=== PATIENT | female | born 1940 | race Caucasian/White ===

== ENCOUNTER 2023-02-17 08:09 | Outpatient (OUT) | payer MEDICARE, OTHER, SELFPAY ==
--- NOTE | 2023-02-17 08:06 | CA_ITS ---
Patient: JOI DUNCAN Exam Date: 02/17/2023 : 1940 Gender:F Ordering : [facility] Admission #: [id number] Family : Order #: [id number] CLICK HERE TO VIEW EXAM ECHOCARDIOGRAM REPORT PROCEDURE: CA ECHO DOPPLER COMPLETE INDICATIONS: Takotsubo cardiomyopathy COMPARISON: None. DESCRIPTION: COMPLETE ECHOCARDIOGRAM Real-time transthoracic echocardiography with 2D, M-mode, spectral and color flow Doppler performed. QUALITY: Technical quality was good. LEFT VENTRICLE: Normal chamber size. Thickened septal wall. LV EF: Global left ventricular systolic function is normal; visually estimated ejection fraction is 55 to 60%. No significant wall motion abnormalities. DIASTOLIC: Not adequately assessed due to heart rhythm. ATRIAL SEPTUM: Inadequately seen. LEFT ATRIUM: Severe dilatation. RIGHT ATRIUM: Mild dilatation. RIGHT VENTRICLE: Normal chamber size. Normal right ventricular systolic function. TRICUSPID VALVE: Normal mobility and thickness. No stenosis with mild regurgitation. Mild pulmonary hypertension. RVSP 41mmHg MITRAL VALVE: Normal mobility and thickness. No evidence of mitral valve stenosis. There is no mitral annular calcification. Moderate mitral regurgitation. AORTIC VALVE: Normal trileaflet appearance. No visible sclerosis. Normal leaflet mobility. No evidence of aortic valve stenosis. No aortic regurgitation. AORTIC ROOT: Normal diameter and appearance. PULMONIC VALVE: Normal thickness and mobility. No stenosis. Mild regurgitation. PERICARDIUM: No evidence of pericardial effusion. IVC: Collapses with inspirations. Normal size measuring 2.1cm. CONCLUSION: Global left ventricular systolic function is normal; visually estimated ejection fraction is 55 to 60%. Biatrial enlargement. The right ventricle is normal in size and systolic function. Mild tricuspid regurgitation. Mildly elevated right ventricular systolic pressure. Moderate mitral regurgitation. Mild pulmonic regurgitation. Adult Echocardiography Procedure Report Left Ventricle LVEDD (3.7 - 5.6 cm): 3.73 cm LVESD (2.2 - 4.0 cm): 2.69 cm LVIVS thickness (0.6 - 1.2 cm): 1.33 cm LVPW thickness (0.5 - 1.0 cm): 0.96 cm e': 0.12 m/s E - e': 7.04 LVOT Max Gradient: 2.21 mm[Hg] LVOT Area (cm2): 0.74 m/s Peak Velocity (LVOT): 0.74 m/s Mean Velocity (LVOT): 0.55 m/s LVOT Diameter 2.04 cm Left Ventricular Ejection Fraction: 54.87 % Left Atrium LA Volume Index (2D A2C): 61.64 ml/m2 Left Atrium Systolic Dimension: 4.68 cm Mitral Valve Mitral Valve E-Wave Peak Velocity: 0.88 m/s Right Ventricle RV Internal Diastolic Dimension: 2.74 cm Aorta AO Root Diam: 2.90 cm Ascending Ao Diam: 2.22 cm Aortic Valve AoV Area (Peak Will): 2.40 cm2, 2.40 cm2 AoV Area (VTI): 2.14 cm2, 2.14 cm2 Peak Velocity(Antegrade Flow): 1.02 m/s Peak Gradient(Antegrade Flow): 4.14 mm[Hg] Mean Velocity(Antegrade Flow): 0.69 m/s Mean Gradient(Antegrade Flow): 2.18 mm[Hg] Velocity Time Integral: 22.27 cm Tricuspid Valve Peak Velocity (Regurgitant Flow): 2.05 m/s, 3.07 m/s Pulmonic Valve Mean Gradient: 1.27 mm[Hg] Mean Velocity: 0.53 m/s Peak Velocity: 0.73 m/s, 0.66 m/s Peak Gradient: 2.15 mm[Hg], 1.72 mm[Hg] Right Atrium Right Atrium Systolic Pressure: 35.94 ml, 35.94 ml Dictated by: Goldie Vaughan M.D. on 02/24/2023 at 13:34 Approved by: Goldie Vaughan M.D. on 02/24/2023 at 13:37
== END 2023-02-17 08:10 ==
LOC: CARD 08:09
PROVIDERS: PCP Family Medicine; Visit Provider Nurse Practitioner Family
DX: I34.0 Nonrheumatic mitral (valve) insufficiency (principal)
CPT/HCPCS: 93306

== ENCOUNTER 2023-02-24 07:13 | Day surgery (SDC) | payer MEDICARE, OTHER, SELFPAY ==
[2023-02-24] MEDS: LACTATED RINGER'S SOLUTION 1,000 ML 50 ML IV (07:55)
--- NOTE | 2023-02-24 09:26 | OP_ITS ---
OPERATION DATE: ??02/24/2023 PREOPERATIVE DIAGNOSIS:? Hemoccult positive stool. POSTOPERATIVE DIAGNOSIS:? Lobulated ascending colon polyp 1.5 cm. PROCEDURE:? Colonoscopy to cecum with cold snare polypectomy x1 for ascending colon polyp. SURGEON:? Rashi Majano M.D. ANESTHESIA:? Monitored anesthesia care. ESTIMATED BLOOD LOSS:? Less than 1 mL. INDICATIONS AND CONSENT:? Patient is an 82-year-old female with positive fecal occult blood.? Last colonoscopy was over 30 years ago.? Indications, risks, benefits, alternatives of proceeding with colonoscopy were explained extensively to the patient, including the risks of bleeding, colon perforation or anesthetic complications.? All of her questions were answered.? Informed consent was obtained.? Patient was on Eliquis but has held it for the past two days. PROCEDURE:? Patient brought to the operating room, placed in the left lateral decubitus position.? Monitored anesthesia care was provided.? Rectal exam was performed which showed some narrowing of the anal canal.? No masses or blood.? The scope was inserted into the anal canal.? Under direct visualization was advanced.? With the aid of abdominal compression, it was advanced to the cecum where cecal markings were clearly identified.? There was noted to be a good prep.? Upon withdrawal of the scope, mucosal surfaces were carefully examined.? Within the ascending colon, just distal to the ileocecal valve, there was noted to be a sessile, lobulated, 1.5-2 cm polyp.? This was removed in a piecemeal fashion with cold snare with good hemostasis.? There were no other mass lesions or polyps.? There was moderate sigmoid diverticulosis without inflammatory changes or scarring.? The scope was retroflexed in the anal canal.? There was no significant hemorrhoidal disease.? Scope was then withdrawn.? Patient tolerated procedure well, was sent to recovery room in good condition. Follow up colonoscopy will likely be in six months to one year, but will depend on the pathology results.? CC:? Patient?s family physician JAQUI
[2023-02-24 09:27] VITALS: BP 104/73; PULSE 108; RESP 20; TEMP 36.6; O2SAT 93
[2023-02-24 09:42] VITALS: BP 128/83; PULSE 101; RESP 18; TEMP 36.1; O2SAT 96
[2023-02-24 09:57] VITALS: BP 169/105; PULSE 102; RESP 18; TEMP 36.6; O2SAT 95
--- NOTE | 2023-02-24 10:10 | PC.NURSE ---
0957 BLOOD PRESSURE IS 169/105. PATIENT DID NOT TAKE ANY BLOOD PRESSURE MEDICATIONS BEFORE PROCEDURE. PATIENT HAS A HISTORY OF A-FIB. PHYSICIAN'S ARE AWARE OF HER BLOOD PRESSURES IT WAS ELEVATED UPON ARRIVAL TO PROCEDURE. ADVISED PATIENT TO TAKE MEDICATIONS WHEN SHE GETS HOME BUT HOLD THE ELIQUIS UNTIL TOMORROW PER DR. JOHN
== END 2023-02-24 10:15 ==
PROVIDERS: PCP Family Medicine; Visit Provider Surgery
PROC: (CPT 45385; principal; 2023-02-24 08:50)
DX: D12.2 Benign neoplasm of ascending colon (principal); R19.5 Other fecal abnormalities; I48.91 Unspecified atrial fibrillation; I35.1 Nonrheumatic aortic (valve) insufficiency; I11.0 Hypertensive heart disease with heart failure; I50.9 Heart failure, unspecified; E03.9 Hypothyroidism, unspecified; M81.0 Age-related osteoporosis without current pathological fracture; Z79.899 Other long term (current) drug therapy; Z79.01 Long term (current) use of anticoagulants; Z87.891 Personal history of nicotine dependence
CPT/HCPCS: 45385; 36415; 88305; J2704

== ENCOUNTER 2023-03-30 14:51 | Outpatient (OUT) | payer MEDICARE, OTHER, SELFPAY ==
--- NOTE | 2023-03-30 14:59 | US_ITS ---
The [address] [address] Patient Name: JOI DUNCAN MRN: [id number] date: 1940 Sex: F Assigned Patient Location: US Current Patient Location: US Accession/Order Number: [id number] Exam Date: 03/30/2023 14:58 Report Date: 03/30/2023 16:57 At the request of: JACINTO KAUR Procedure: US pelvis EXAM: US pelvis HISTORY: Other Specified Noninflammatory Disorder Of Vagina N89.8 COMPARISON: None. TECHNIQUE: Multiple transabdominal images of the pelvis were obtained, supplemented with Doppler. Transvaginal images were not obtained. FINDINGS: The study is somewhat limited due to the patient's body habitus. The uterus is anteverted measuring 5.9 x 6.2 x 3.5 cm. No definite abnormality seen in the uterine oliveira. The endometrial echoes are slightly thickened measuring 11 mm, without a focal abnormality within. The right and left ovaries are not visualized, presumably related to atrophy. There is no evidence of an adnexal mass or fluid in the cul-de-sac. Towards the right groin there is a small cyst measuring 1.1 x 1.0 x 1.0 cm, of uncertain etiology and significance. US/US pelvis IMPRESSION: The uterus is anteverted and small. No definite abnormality is seen within the uterine wall. The endometrial thickness is borderline prominent. The ovaries are not visualized. Towards the right groin is a small cyst on the right, of questionable clinical significance. No free fluid is present. Comparison with a previous study may be helpful in determining the chronicity of these findings. Electronically authenticated by: OTF RENO Date: 03/30/2023 16:57
== END 2023-03-30 14:52 | disposition home or self-care (01) ==
LOC: US 14:51
PROVIDERS: PCP Family Medicine; Visit Provider Family Medicine
DX: N89.8 Other specified noninflammatory disorders of vagina (principal); N85.4 Malposition of uterus; N94.89 Other specified conditions associated with female genital organs and menstrual cycle
CPT/HCPCS: 76856

== ENCOUNTER 2023-04-09 15:20 | Outpatient (OUT) | payer MEDICARE, OTHER, SELFPAY ==
[2023-04-09 15:45] LABS: Bilirubin Urine NEGATIVE (NEGATIVE); Blood Urine LARGE (NEGATIVE); Clarity Urine CLEAR (CLEAR); Color Urine YELLOW (YELLOW); Glucose Urine UA NEGATIVE (NEGATIVE); Ketones Urine NEGATIVE (NEGATIVE); Leukocyte Esterase Urine SMALL (NEGATIVE); Nitrite Urine NEGATIVE (NEGATIVE); Protein Urine TRACE mg/dL (NEG/TRACE); Specific Gravity Urine >=1.030 (1.005-1.025); Urobilinogen Urine 0.2 EU/dL (0.2-1.0); pH Urine 5.5 (5.0-9.0)
[2023-04-09 15:57] LABS: RBC Urine 0-2 #/HPF (0-2)
[2023-04-09 15:58] LABS: Bacteria Urine TRACE #/HPF (NONE SEEN); Cast Seen? NONE SEEN #/LPF (NONE SEEN); Crystals Seen? None Seen #/HPF (None Seen); Mucus Urine NONE SEEN (NONE SEEN); Squamous Epithelial Cell Urine RARE #/LPF (NONE/RARE); Urine Culture Indicated ALREADY ORDERED
== END 2023-04-09 15:21 | disposition home or self-care (01) ==
LOC: LAB 15:21
PROVIDERS: PCP Family Medicine; Visit Provider Family Medicine
DX: N89.8 Other specified noninflammatory disorders of vagina (principal); R82.89 Other abnormal findings on cytological and histological examination of urine
CPT/HCPCS: 81001; 87086; 87150; 87186

== ENCOUNTER 2023-05-11 14:52 | Outpatient (OUT) | payer MEDICARE, OTHER, SELFPAY ==
--- NOTE | 2023-05-11 14:14 | US_ITS ---
The [address] [address] Patient Name: JOI DUNCAN MRN: [id number] date: 1940 Sex: F Assigned Patient Location: US Current Patient Location: US Accession/Order Number: [id number] Exam Date: 05/11/2023 14:15 Report Date: 05/11/2023 15:12 At the request of: ADRIANA ARMENTA Procedure: US pelvis w/ transvaginal TRANSABDOMINAL AND TRANSVAGINAL PELVIC ULTRASOUND HISTORY: Postmenopausal bleeding. COMPARISON: None. FINDINGS: TRANSABDOMINAL: The uterus measures 6.2 x 3.2 x 4.4 cm. There are no myometrial masses. The endometrium is thickened and measures 13 mm. TRANSVAGINAL: The ovaries are not visualized. There is no free fluid seen within the cul-de-sac. US/US pelvis w/ transvaginal IMPRESSION: Abnormally thickened endometrium. Consider sonohysterogram. Ovaries not visualized. Electronically authenticated by: ELOISA BRADLEY Date: 05/11/2023 15:12
== END 2023-05-11 14:53 | disposition home or self-care (01) ==
LOC: US 14:53
PROVIDERS: PCP Family Medicine; Visit Provider Obstetrics & Gynecology
DX: N95.0 Postmenopausal bleeding (principal)
CPT/HCPCS: 76830; 76856

== ENCOUNTER 2023-06-30 15:55 | Outpatient (OUT) | payer MEDICARE, OTHER, SELFPAY ==
[2023-06-30 16:14] LABS: Basophils Percent Auto 0.6 % (0.2-2.0); Eosinophils Absolute Auto 0.1 10^3/uL (0.0-0.7); Eosinophils Percent Auto 1.8 % (0.9-7.0); Hematocrit 37.1 % (36.0-48.0); Hemoglobin 11.4 g/dL (12.0-16.0); Immature Granulocytes Abs Auto 0.01 10^3/uL (0.00-0.03); Immature Granulocytes Pct Auto 0.2 % (0.0-0.5); Lymphocytes Absolute Auto 1.2 10^3/uL (1.2-3.8); Mean Corpuscular HGB Conc 30.7 g/dL (29.9-35.2); Mean Corpuscular Hemoglobin 30.9 pg (26.7-34.0); Mean Corpuscular Volume 100.5 fL (81.0-99.0); Mean Platelet Volume 10.4 fL (9.5-13.5); Monocytes Absolute Auto 0.4 10^3/uL (0.3-0.8); Monocytes Percent Auto 8.5 % (1.7-12.0); Neutrophils Absolute Auto 3.2 10^3/uL (1.4-6.5); Neutrophils Percent Auto 64.9 % (43.0-75.0); Platelet Count 157 10^3/uL (150-450); Red Blood Count 3.69 10^6/uL (4.20-5.40); Red Cell Distribution Width 13.5 % (11.0-15.0)
[2023-06-30 16:38] LABS: Estimated Average Glucose 91 mg/dL; Glycohemoglobin A1C 4.8 % (4.5-6.2)
[2023-06-30 16:51] LABS: Alanine Aminotransferase 23 U/L (14-59); Albumin Globulin Ratio 1.1; Albumin Level 3.5 g/dL (3.4-5.0); Alkaline Phosphatase 66 U/L (46-116); Anion Gap 9.5; Aspartate Amino Transferase 24 U/L (15-37); Bilirubin Total 0.5 mg/dL (0.2-1.0); Calcium 9.5 mg/dL (8.5-10.1); Carbon Dioxide 33.5 mmol/L (21.0-32.0); Chloride 106 mmol/L (98-107); Estimated GFR (African America 56 (>=60); Estimated GFR (Non-African Ame 46 (>=60); Free T3 2.31 pg/mL (2.18-3.98); Globulin 3.1 g/dL; Glucose 72 mg/dL (74-106); Sodium 145 mmol/L (136-145); Thyroid Stimulating Hormone 1.513 uIU/mL (0.358-3.740); Total Protein 6.6 g/dL (6.4-8.2)
== END 2023-06-30 15:56 | disposition home or self-care (01) ==
LOC: LAB 15:57
PROVIDERS: PCP Family Medicine; Visit Provider Family Medicine
DX: R73.09 Other abnormal glucose (principal); D64.9 Anemia, unspecified; I11.0 Hypertensive heart disease with heart failure
CPT/HCPCS: 36415; 80053; 83036; 83540; 83880; 84436; 84443; 84481; 84484; 85025

== ENCOUNTER 2023-07-12 07:53 | Outpatient (OUT) | payer MEDICARE, OTHER, SELFPAY ==
--- NOTE | 2023-07-12 09:49 | CA_ITS ---
Patient Name JOI DUNCAN MR# Age Sex Date Time [id number] F 07/12/2023 08:45 At the Request Of DR Kole Servin . ECHOCARDIOGRAM REPORT PROCEDURE: CA ECHO DOPPLER COMPLETE INDICATIONS: CHEST PAIN COMPARISON: None. DESCRIPTION: COMPLETE ECHOCARDIOGRAM Real-time transthoracic echocardiography with 2D, M-mode, spectral and color flow Doppler performed. QUALITY: Technical quality was good. LEFT VENTRICLE: Normal chamber size. Sigmoid septum. LV EF: Global left ventricular systolic function is mildly decreased. Visual estimation of left ventricular ejection fraction is 45-50%. Diffuse hypokinesis. DIASTOLIC: Not adequately assessed due to heart rhythm. ATRIAL SEPTUM: Inadequately seen. LEFT ATRIUM: Severe dilatation. RIGHT ATRIUM: Mild dilatation. RIGHT VENTRICLE: Normal chamber size. Normal right ventricular systolic function. TRICUSPID VALVE: Normal mobility and thickness. No stenosis with trivial regurgitation. No evidence of pulmonary hypertension. RVSP 33mmHg MITRAL VALVE: Normal mobility and thickness. No evidence of mitral valve stenosis. There is no mitral annular calcification. Mild to moderate mitral regurgitation. AORTIC VALVE: Normal trileaflet appearance. No visible sclerosis. Normal leaflet mobility. No evidence of aortic valve stenosis. No aortic regurgitation. AORTIC ROOT: Normal diameter and appearance. PULMONIC VALVE: Normal thickness and mobility. No stenosis. Trivial regurgitation. PERICARDIUM: No evidence of pericardial effusion. IVC: Collapses with inspirations. Normal size. CONCLUSION: 1. Global left ventricular systolic function is mildly reduced; visually estimated ejection fraction is 45 to 50% 2. Biatrial enlargement 3. The right ventricle is normal in size and systolic function 4. Mild to moderate mitral regurgitation Adult Echocardiography Procedure Report Left Ventricle LVEDD (3.7 - 5.6 cm): 3.90 cm LVESD (2.2 - 4.0 cm): 3.03 cm LVIVS thickness (0.6 - 1.2 cm): 1.60 cm LVPW thickness (0.5 - 1.0 cm): 1.10 cm e': 0.09 m/s E - e': 6.14 LVOT Max Gradient: 2.31 mm[Hg] LVOT Area (cm2): 0.76 m/s Peak Velocity (LVOT): 0.76 m/s Mean Velocity (LVOT): 0.54 m/s LVOT Diameter 1.99 cm Left Ventricular Ejection Fraction: 50.03 % Left Atrium LA Volume Index (2D A2C): 65.88 ml/m2 Left Atrium Systolic Dimension: 3.64 cm Mitral Valve Mitral Valve E-Wave Peak Velocity: 0.57 m/s Right Ventricle RV Internal Diastolic Dimension: 3.11 cm Aorta AO Root Diam: 3.28 cm Ascending Ao Diam: 2.43 cm Aortic Valve AoV Area (Peak Will): 2.72 cm2, 2.65 cm2 AoV Area (VTI): 2.52 cm2, 2.47 cm2 Peak Velocity(Antegrade Flow): 0.89 m/s, 0.84 m/s Peak Gradient(Antegrade Flow): 3.14 mm[Hg], 2.84 mm[Hg] Mean Velocity(Antegrade Flow): 0.66 m/s, 0.63 m/s Mean Gradient(Antegrade Flow): 1.96 mm[Hg], 1.79 mm[Hg] Velocity Time Integral: 18.18 cm, 17.52 cm Tricuspid Valve Peak Velocity (Regurgitant Flow): 1.87 m/s, 2.74 m/s Pulmonic Valve Peak Velocity: 0.58 m/s Peak Gradient: 1.40 mm[Hg], 1.28 mm[Hg] Right Atrium Right Atrium Systolic Pressure: 40.03 ml, 40.03 ml Dictated by: Goldie Vaughan M.D. on 07/14/2023 at 12:12 Approved by: Goldie Vaughan M.D. on 07/14/2023 at 12:15
== END 2023-07-12 07:54 | disposition home or self-care (01) ==
LOC: CARD 07:53
PROVIDERS: PCP Family Medicine; Visit Provider Family Medicine
DX: Z01.810 Encounter for preprocedural cardiovascular examination (principal); Z01.812 Encounter for preprocedural laboratory examination; R93.89 Abnormal findings on diagnostic imaging of other specified body structures; I48.91 Unspecified atrial fibrillation; Z79.01 Long term (current) use of anticoagulants; R06.02 Shortness of breath; R07.9 Chest pain, unspecified
CPT/HCPCS: 85610; 85730; 93005; 93306

== ENCOUNTER 2023-07-12 09:41 | Outpatient (OUT) | payer MEDICARE, OTHER, SELFPAY ==
--- NOTE | 2023-07-12 09:42 | ECG_ITS ---
The [facility] Test Date: 2023-07-12 Pat Name: JOI DUNCAN Department: Room: - Gender: Female [employer]: : 1940 Requested By: ADRIANA ARMENTA Order Number: [id number] Reading MD: JACINTO KAUR Measurements Intervals [place] Rate: 70 P: [place]: QRS: -3 QRSD: 94 T: 28 QT: 427 QTc: 461 Interpretive Statements ATRIAL FIBRILLATION ABNORMAL RHYTHM ECG No previous ECG available for comparison Electronically Signed On 07-15-2023 6:22:44 EST by JACINTO KAUR
[2023-07-12 11:38] LABS: INR 1.03; Partial Thromboplastin Time 30.8 sec (22.3-36.2); Prothrombin Time 10.9 sec (9.0-11.6)
== END 2023-07-12 09:42 | disposition home or self-care (01) ==
LOC: PST 09:41
PROVIDERS: PCP Family Medicine; Visit Provider Obstetrics & Gynecology
DX: Z01.812 Encounter for preprocedural laboratory examination (principal); Z01.810 Encounter for preprocedural cardiovascular examination; Z79.01 Long term (current) use of anticoagulants; I48.91 Unspecified atrial fibrillation; R93.89 Abnormal findings on diagnostic imaging of other specified body structures; N95.0 Postmenopausal bleeding
CPT/HCPCS: 80048; 85610; 85730; 93005

== ENCOUNTER 2023-07-23 06:43 | Day surgery (SDC) | payer MEDICARE, OTHER, SELFPAY ==
[2023-07-12 10:46] VITALS: BP 157/97; PULSE 74; RESP 18; TEMP 36.2; O2SAT 97; BMI 29.9
[2023-07-23 06:55] LABS: Basophils Percent Auto 0.5 % (0.2-2.0); Eosinophils Absolute Auto 0.1 10^3/uL (0.0-0.7); Hematocrit 39.4 % (36.0-48.0); Immature Granulocytes Abs Auto 0.01 10^3/uL (0.00-0.03); Immature Granulocytes Pct Auto 0.2 % (0.0-0.5); Lymphocytes Absolute Auto 1.7 10^3/uL (1.2-3.8); Lymphocytes Percent Auto 31.8 % (20.5-60.0); Mean Corpuscular HGB Conc 30.5 g/dL (29.9-35.2); Mean Corpuscular Hemoglobin 30.3 pg (26.7-34.0); Mean Corpuscular Volume 99.5 fL (81.0-99.0); Monocytes Absolute Auto 0.5 10^3/uL (0.3-0.8); Monocytes Percent Auto 9.5 % (1.7-12.0); Neutrophils Absolute Auto 3.1 10^3/uL (1.4-6.5); Platelet Count 157 10^3/uL (150-450); Red Blood Count 3.96 10^6/uL (4.20-5.40); Red Cell Distribution Width 13.3 % (11.0-15.0); White Blood Count 5.5 10^3/uL (4.0-11.0)
[2023-07-23 07:07] VITALS: BP 145/94; PULSE 71; RESP 16; TEMP 36; O2SAT 99; BMI 27.9
[2023-07-23] MEDS: LACTATED RINGER'S SOLUTION 1,000 ML 50 ML IV (07:16)
--- NOTE | 2023-07-23 09:10 | PM.ONB ---
Brief Operative Note Date of procedure: 07/23/23 Pre-op diagnosis: pmb, thickend endometrium Post-op diagnosis: same as pre-op Procedure: NAME OF PROCEDURE: [ D&c hysteroscopy with myosure for removal of uterine polyp and fibroid.] multiple uterine polyp and fibroids, no evidence of malignancy PROCEDURE: The patient was taken back to the Operating Room where she was prepped and draped in normal sterile fashion after being placed under general anesthesia without difficulty. She was also placed in the dorsal lithotomy position. A weighted speculum was placed in the patient?s vagina. The anterior lip of the cervix was identified and grasped with a single tooth tenaculum. The patient?s uterus was then sounded roughly to [? 8] cm. The patient was then gently dilated using Hegar dilators. The hysteroscope was passed through the patient?s cervix into the uterus. Both ostia were identified. fluffy appearing endometrium. No gross evidence of malignancy, no gross evidence of polyps or fibroids. The MyoSure was then placed through the scope into the uterus, endometrial sampling in all quadrants was then performed. The myosure was also used to remove uterine polyp and fibroid. the myosure apparatus was removed along with the hysteroscope from the patient's uterus. At that point, gentle curettage was performed until a gritty texture was noted. The endometrial curettings were sent out to pathology. The single tooth tenaculum was then removed from the patient's anterior lip of the cervix where excellent hemostasis was noted. All instruments were removed from the patient?s vagina. The patient tolerated the procedure well. Sponge, lap and needle counts were correct times two. The patient was taken to the Recovery Room in stable condition.Room in stable condition. Anesthesia: GETA Surgeon: Edy Murguia Estimated blood loss (mL): 5 Pathology: other (enodmetrial curretting, uterine polyp and fibroid) Condition: stable Disposition: PACU
[2023-07-23 09:18] VITALS: BP 104/57; PULSE 81; RESP 13; O2SAT 96
[2023-07-23 09:33] VITALS: BP 111/64; PULSE 82; RESP 20; O2SAT 95
[2023-07-23 10:01] VITALS: BP 125/72; PULSE 73; RESP 20; O2SAT 97
[2023-07-23 10:33] VITALS: BP 158/91; PULSE 72; RESP 20; O2SAT 97
== END 2023-07-23 10:55 | disposition home or self-care (01) ==
PROVIDERS: PCP Family Medicine; Visit Provider Obstetrics & Gynecology
PROC: (CPT 58558; principal; 2023-07-23 08:30)
DX: R93.89 Abnormal findings on diagnostic imaging of other specified body structures (principal); N95.0 Postmenopausal bleeding; Z79.01 Long term (current) use of anticoagulants; N85.8 Other specified noninflammatory disorders of uterus; Z79.899 Other long term (current) drug therapy; Z98.51 Tubal ligation status; E03.9 Hypothyroidism, unspecified; I48.0 Paroxysmal atrial fibrillation; I11.9 Hypertensive heart disease without heart failure; Z87.891 Personal history of nicotine dependence
CPT/HCPCS: 58558; 36415; 85025; 88305; J2704

== ENCOUNTER 2023-10-28 10:05 | Outpatient (OUT) | payer MEDICARE, OTHER, SELFPAY ==
--- OUTSIDE RECORDS SUMMARY | 2023-10-28 10:12 | XMS_ITS | CCD ---
Author Name Unknown Address [address] [place] [address] [id number] [place] [address] Organization [facility] Care Team Providers Care Facing Cutting Machine Operator Name Role Phone PETER LEE Referring Unavailable JACINTO SERVIN Primary Care Unavailable CHAPITO SHIPLEY Attending Unavailable CHAPITO SHIPLEY Admitting Unavailable MA Procedure Practitioner Unavailab JJ Rendon Surgeon Unavailable ELTAHAWY, EHAB A Admitting Unavailable ALIVIATASHELLY, EHAB A Attending Unavailable JACINTO SERVIN Referring Unavailable JACINTO SERVIN Primary Care Unavailable YOLANDAY ., DR CASEY Admitting Unavailable HOY ., DR CASEY Primary Care Unavailable HOY ., DR CASEY Consulting Unavailable HOY ., DR CASEY Attending Unavailable HOY ., DR CASEY Admitting Unavailable HOY ., DR CASEY Primary Care Unavailable HOY ., DR CASEY Consulting Unavailable HOY ., DR CASEY Attending Unavailable GREEN LANE, DR KELSI Aguirre Consulting Unavailable ZIEBJENIFFER, DR DUDLEY Lee Consulting Unavailable HOY ., DR CASEY Admitting Unavailable HOY ., DR CASEY Primary Care Unavailable HOY ., DR CASEY Attending Unavailable HOY ., DR CASEY Admitting Unavailable HOY ., DR CASEY Primary Care Unavailable HOY ., DR CASEY Consulting Unavailable YOLANDAY ., DR CASEY Attending Unavailable Jacinto Servin Primary Care Physician Rashi JOHN Attending Unavailable Jacinto Servin Referring Unavailable NILLRashi Attending Unavailable Jacinto Servin Referring Unavailable NILLRashi R Attending Unavailable NILLRashi R Attending Unavailable FLAQUITO BALLARD Attending Unavailable FLAQUITO BALLARD Attending Unavailable ROD AGUAYO Attending Unavailable Allergies Allergy Classification Reported Allergen(s) Allergy Type Date of Onset Reaction(s) Facility (3 sources) Sulfonamides (Antibiotic); Translations: [sulfa drugs] Drug allergy Unknown (qualifier value) General Surgery Anneliese (1 source) ALPRAZolam; Translations: [Xanax] Drug Allergy [facility] Repository (1 source) Sulfonamides (Antibiotic); Translations: [SULFA (SULFONAMIDE ANTIBIOTICS)] Propensity to adverse reactions to drug (disorder) 2 [facility] Repository Medications Current Medications Medication Drug Class(es) Dates Sig (Normalized) Sig (Original) apixaban 5 mg oral tablet (2 sources) Factor Xa Inhibitor Start: 01-22-2023 take 1 tablet by mouth twice daily carvedilol 12.5 mg oral tablet (2 sources) alpha-Adrenergic Elvin, beta-Adrenergic Elvin Start: 01-22-2023 take 1 tablet by mouth twice daily carvedilol 12.5 mg Tab 12.5 mg = 1 tab(s), Oral, BID, Refills(s) 0 Start Date: 01/22/23 Status: Ordered ferrous sulfate 325 mg oral tablet (2 sources) Start: 01-22-2023 take 1 tablet by mouth twice daily ferrous sulfate 325 mg Tab 325 mg = 1 tab(s), Oral, BID, Refills(s) 0 Start Date: 01/22/23 Status: Ordered furosemide 20 mg oral tablet (2 sources) Loop Diuretic Start: 01-22-2023 take 1 tablet by mouth once daily levothyroxine sodium 0.05 mg oral tablet (2 sources) l-Thyroxine Start: 01-22-2023 take 1 tablet by mouth once daily lisinopril 20 mg oral tablet (2 sources) Angiotensin Converting Enzyme Inhibitor Start: 01-22-2023 take 1 tablet by mouth once daily meclizine hydrochloride 25 mg oral tablet (2 sources) Antiemetic Start: 02-02-2023 take 1 tablet by mouth twice daily meclizine 25 mg Tab 25 mg = 1 tab(s), Oral, BID, Refills(s) 0 Start Date: 02/02/23 Status: Ordered Completed/Discontinued Medications Medication Drug Class(es) Dates Sig (Normalized) Sig (Original) alendronic acid 70 mg oral tablet (2 sources) Bisphosphonate Start: 01-22-2023 take 1 tablet by mouth every week potassium chloride 20 meq extended release oral tablet (2 sources) Start: 01-22-2023 take 1 tablet by mouth once daily potassium chloride 20 mEq ER Tab 20 mEq = 1 tab(s), Oral, Daily, Refills(s) 0 Start Date: 01/22/23 Status: Ordered Problems Active Problems Problem Classification Problem Date Documented Da te Episodic/Chronic Cardiac dysrhythmias (5 sources) Unspecified atrial fibrillation; Translations: [Atrial fibrillation] Onset: 01-23-2022 01-22-2023 Chronic Congestive heart failure; nonhypertensive (5 sources) Unspecified diastolic (congestive) heart failure; Translations: [Congestive heart failure] Onset: 01-23-2022 01-22-2023 Chronic Disorders of lipid metabolism (1 source) Hyperlipidemia, unspecified; Translations: [HYPERLIPIDEMIA UNSPECIFIED] Onset: 01-23-2022 Chronic Essential hypertension (4 sources) Hypertensive disorder; Translations: [Essential (primary) hypertension] Onset: 07-01-2022 01-22-2023 Chronic Heart valve disorders (2 sources) Aortic valve regurgitation 01-22-2023 Chronic Hypertension with complications and secondary hypertension (1 source) Hypertensive heart disease with heart failure; Translations: [HTN HEART DISEASE W/HEART FAIL] Onset: 01-23-2022 Chronic Menopausal disorders (1 source) Other primary ovarian failure; Translations: [OTHER PRIMARY OVARIAN FAILURE] Onset: 01-23-2022 Chronic Osteoporosis (3 sources) Age-related osteoporosis without current pathological fracture; Translations: [Osteoporosis] Onset: 01-23-2022 01-22-2023 Chronic Other and ill-defined heart disease (1 source) Cardiomegaly; Translations: [CARDIOMEGALY] Onset: 01-23-2022 Chronic Other and ill-defined heart disease (2 sources) Left atrial enlargement 01-22-2023 Chronic Other and ill-defined heart disease (2 sources) Left ventricular hypertrophy 01-22-2023 Chronic Other and ill-defined heart disease (2 sources) Takotsubo syndrome; 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] Onset: 05-28-2022 Chronic Other and unspecified benign neoplasm (1 source) Benign neoplasm of colon; Translations: [Benign neoplasm of colon, unspecified] Onset: 03-05-2023 Episodic Other and unspecified benign neoplasm (1 source) Adenomatous polyp of colon 03-05-2023 Episodic Other gastrointestinal disorders (1 source) Abnormal feces; Translations: [Other fecal abnormalities] Onset: 02-02-2023 Episodic Other gastrointestinal disorders (2 sources) Occult blood in stools 02-02-2023 Episodic Other nutritional; endocrine; and metabolic disorders (2 sources) Body mass index 30+ - obesity 02-02-2023 Chronic Emelia-; endo-; and myocarditis; cardiomyopathy (except that caused by tuberculosis or sexually transmitted disease) (2 sources) Cardiomyopathy 01-22-2023 Chronic Residual codes; unclassified (2 sources) Edema of lower extremity 01-22-2023 Episodic Thyroid disorders (3 sources) Hypothyroidism, unspecified; Translations: [Hypothyroidism] Onset: 01-23-2022 01-22-2023 Chronic Past or Other Problems Problem Classification Problem Date Documented Da te Episodic/Chronic Deficiency and other anemia (1 source) Anemia, unspecified; Translations: [ANEMIA UNSPECIFIED] Onset: 01-23-2022 Episodic Diabetes mellitus without complication (1 source) Other abnormal glucose; Translations: [OTHER ABNORMAL GLUCOSE] Onset: 01-23-2022 Episodic Other injuries and conditions due to external causes (1 source) History of falling; Translations: [HISTORY OF FALLING] Onset: 01-23-2022 Episodic Other screening for suspected conditions (not mental disorders or infectious disease) (4 sources) Encounter for screening mammogram for malignant neoplasm of breast; Translations: [ENC SCR MAMMO MALIG NEOPLASM BREAST] Onset: 01-20-2022 Episodic Results Test Name Value Interpretation Reference Range Facility Office Visiton 08-05-2023 Follow-up visit [id number] Nereida Agosto 1940 F Date Provider Department Center 08/05/2023 [id number] BALLARD [facility] Family History Problem Relation Age of Onset No Known Problems Mother No Known Problems Father Family Status - Relation Status Age at Mother Father Level of Service:81324 MA OFFICE/OUTPATIENT ESTABLISHED MOD MDM 30-39 MIN Normal [facility] Ambulatory Visit Summaryon 0 03-05-2023 Ambulatory Visit Summary NEREIDA AGOSTO :1940 Visit Date:03/05/2023 Ambulatory Visit Instructions Your Care Team Attending Physician - ALVARO AHMADI, Rashi Lee Primary Care Physician - Jacinto Servin MD This Is Your Medications List alendronate (alendronate 70 mg Tab) apixaban (Eliquis 5 mg oral tablet) carvedilol (carvedilol 12.5 mg Tab) ferrous sulfate (ferrous sulfate 325 mg Tab) furosemide (furosemide 20 mg Tab) levothyroxine (Synthroid 50 mcg Tab) lisinopril (lisinopril 20 mg Tab) meclizine (meclizine 25 mg Tab) potassium chloride (potassium chloride 20 mEq ER Tab) Procedures Performed Colonoscopy (02/24/2023), Closed fracture of hip, Tubal ligation. Medications What How Much When Instructions Unchanged alendronate (alendronate 70 mg Tab) 1 Tablets By Mouth Every week Unknown, 1 Refill(s) Unchanged apixaban (Eliquis 5 mg oral tablet) 1 Tablets By Mouth 2 times a day Unknown Unchanged carvedilol (carvedilol 12.5 mg Tab) 1 Tablets By Mouth 2 times a day Unchanged ferrous sulfate (ferrous sulfate 325 mg Tab) 1 Tablets By Mouth 2 times a day Unchanged furosemide (furosemide 20 mg Tab) 1 Tablets By Mouth Every day Unknown Unchanged levothyroxine (Synthroid 50 mcg Tab) 1 Tablets By Mouth Every day Unknown Unchanged lisinopril (lisinopril 20 mg Tab) 1 Tablets By Mouth Every day Unknown Unchanged meclizine (meclizine 25 mg Tab) 1 Tablets By Mouth 2 times a day Unchanged potassium chloride (potassium chloride 20 mEq ER Tab) 1 Tablets By Mouth Every day Allergies sulfa drugs (Unknown) Problems Ongoing - Any problem that you are currently receiving treatment for. A-fib Aortic valve regurgitation BMI 30.0-30.9,adult Cardiomyopathy Congestive heart failure HTN (hypertension) Hypothyroidism Left atrial enlargement Lower extremity edema LVH (left ventricular hypertrophy) Osteoporosis Positive fecal occult blood test Normal [facility] General Surgery Office/Clini c Noteon 03-05-2023 General Surgery Office/Clinic Note Chief Complaint colonoscopy follow up HPI Staff 9 day post operative follow up post colonoscopy with ascending colon polypectomy. History of Present Illness s/p colonoscopy due to positive fecal occult blood; 1.5 cm ascending colon polyp removed; pathology with tubulovillous adenoma with focus of high grade dysplasia; doing well, denies abd pain or blood in stools. Review of Systems ROS - Provider Constitutional: no fever, no sweats, no weight loss. Eyes: no glasses, no blurred vision, no visual loss. ENMT: no dentures, no hoarseness, no swallowing difficulties, no hearing loss, no ear infection(s), no nose bleeds. Cardiovascular: normal blood pressure, no chest pain, regular heartbeat, no heart murmur. Respiratory: no shortness of breath, no cough, no asthma, no wheezing. Gastrointestinal: no nausea, no vomiting, no diarrhea, no constipation, no blood in stool, no change in bowel habits, no abdominal pain, no hepatitis. Genitourinary: no kidney stones, no urine infection, no dysuria. Musculoskeletal: no pain, no weakness. Skin: no changing moles, no rash, no skin lumps. Neurologic: no seizures, no epilepsy, no headache. Psychiatric: no emotional or psychiatric problem. Heme/Lymph: no bleeding problems, no anemia, no blood clots, no transfusions. Allergy/Immunologic: no swollen lymph nodes/glands, no IV drug abuse. Other: Additional ROS info: Except as noted in the above Review of Systems and in the History of Present Illness, all other systems have been reviewed and are negative or noncontributory. Assessment/Plan 1. 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 Follow-up No qualifying data available Problem List/Past Medical History Ongoing A-fib Aortic valve regurgitation BMI 30.0-30.9,adult Cardiomyopathy Congestive heart failure HTN (hypertension) Hypothyroidism Left atrial enlargement Lower extremity edema LVH (left ventricular hypertrophy) Osteoporosis Positive fecal occult blood test Tubulovillous adenoma of colon Historical No qualifying data Procedure/Surgical History Colonoscopy (02/24/2023), Closed fracture of hip, Tubal ligation. Medications alendronate 70 mg Tab, 70 mg= 1 tab(s), Oral, qWeek carvedilol 12.5 mg Tab, 12.5 mg= 1 tab(s), Oral, BID Eliquis 5 mg oral tablet, 5 mg= 1 tab(s), Oral, BID ferrous sulfate 325 mg Tab, 325 mg= 1 tab(s), Oral, BID furosemide 20 mg Tab, 20 mg= 1 tab(s), Oral, Daily lisinopril 20 mg Tab, 20 mg= 1 tab(s), Oral, Daily meclizine 25 mg Tab, 25 mg= 1 tab(s), Oral, BID potassium chloride 20 mEq ER Tab, 20 mEq= 1 tab(s), Oral, Daily Synthroid 50 mcg Tab, 50 mcg= 1 tab(s), Oral, Daily Allergies sulfa drugs (Unknown) Social History Alcohol - Denies Alcohol Use, 02/02/2023 Substance Abuse - Denies Substance Abuse, 02/02/2023 Tobacco Former smoker, quit more than 30 days ago Tobacco Use:. Never Smokeless Tobacco Use:. Cigarettes, 2 per day. Started age 23.0 Years. Stopped age 42 Years., 02/02/2023 Family History Asthma: Mother. Renal cell carcinoma: Brother. Immunizations Vaccine Date Status influenza virus vaccine, inactivated 07/21/2022 Recorded SARS-CoV-2 (COVID-19) mRNA-1273 vaccine 08/28/2021 Recorded SARS-CoV-2 (COVID-19) mRNA-1273 vaccine 11/14/2020 Recorded SARS-CoV-2 (COVID-19) mRNA-1273 vaccine 10/18/2020 Recorded Normal [facility] Comment on above: Result Comment: Elec tronically Signed By: ALVARO AHMADI, Rashi Weaver\Date and Time Signed: 03/05/23 15:50 EDT Reminderson 03-05-2023 Reminders - From: Alisha Maldonado LPN To: N - Clinical; Sent: 03/05/2023 15:36:30 EDT Show up: 01/25/2024 07:00:00 EDT Subject: colonoscopy recall Due Date/Time: 02/25/2024 07:00:00 EDT Reminder/Recall Patient due for surveillance colonoscopy 02/25/2024. Normal [facility] Pathology Noteon 03-01-2023 Pathology Note [id number] #1.00CD:127 Normal [facility] Outside Colonoscopyon 2022 Outside Colonoscopy [id number]# 1.00CD:127 Normal [facility] Formson 02-22-2023 Forms [id number] #1.00CD:127 Normal [facility] Office Visiton 02-19-2023 Follow-up visit [id number] Nereida Agosto 1940 F Date Provider Department Center 02/19/2023 [id number] BALLARD CARD [facility] Family History Problem Relation Age of Onset No Known Problems Mother No Known Problems Father Family Status - Relation Status Age at Mother Father Level of Service:23324 MA OFFICE/OUTPATIENT ESTABLISHED MOD MDM 30-39 MIN Reason for Visit and Comments: Follow-up [884275] - Pt is here for sx clearance scheduled for echo 02/17 [facility] Consent for Procedure/Surger yon 02-05-2023 Consent for Procedure/Surgery [id number] #1.00CD:127 [facility] Facesheeton 02-03-2023 Facesheet [id number] #1.00CD:127 [facility] Ambulatory Visit Summaryon 0 02-02-2023 Ambulatory Visit Summary NEREIDA AGOSTO :1940 Visit Date:02/02/2023 Ambulatory Visit Instructions Your Diagnosis Positive fecal occult blood test Your Care Team Attending Physician - Rashi JOHN MD Primary Care Physician - Jacinto Servin MD Referring Physician - Jacinto Servin MD This Is Your Medications List Contact prescribing physician if questions or concerns alendronate (alendronate 70 mg Tab) apixaban (Eliquis 5 mg oral tablet) carvedilol (carvedilol 12.5 mg Tab) ferrous sulfate (ferrous sulfate 325 mg Tab) furosemide (furosemide 20 mg Tab) levothyroxine (Synthroid 50 mcg Tab) lisinopril (lisinopril 20 mg Tab) meclizine (meclizine 25 mg Tab) potassium chloride (potassium chloride 20 mEq ER Tab) Procedures Performed Closed fracture of hip, Tubal ligation. Discharge Vitals Heart Rate (Peripheral) 74 Respiratory Rate 16 Blood Pressure 126/76 Height 147.3 cm Height 58 in Weight 65.7 kg Weight 144.54 lb BMI 30.28 Medications What How Much When Instructions Unchanged alendronate (alendronate 70 mg Tab) 1 Tablets By Mouth Every week Unknown, 1 Refill(s) Contact prescribing physician if questions or concerns Unchanged apixaban (Eliquis 5 mg oral tablet) 1 Tablets By Mouth 2 times a day Unknown Contact prescribing physician if questions or concerns Unchanged carvedilol (carvedilol 12.5 mg Tab) 1 Tablets By Mouth 2 times a day Contact prescribing physician if questions or concerns Unchanged ferrous sulfate (ferrous sulfate 325 mg Tab) 1 Tablets By Mouth 2 times a day Contact prescribing physician if questions or concerns Unchanged furosemide (furosemide 20 mg Tab) 1 Tablets By Mouth Every day Unknown Contact prescribing physician if questions or concerns Unchanged levothyroxine (Synthroid 50 mcg Tab) 1 Tablets By Mouth Every day Unknown Contact prescribing physician if questions or concerns Unchanged lisinopril (lisinopril 20 mg Tab) 1 Tablets By Mouth Every day Unknown Contact prescribing physician if questions or concerns Unchanged meclizine (meclizine 25 mg Tab) 1 Tablets By Mouth 2 times a day Contact prescribing physician if questions or concerns Unchanged potassium chloride (potassium chloride 20 mEq ER Tab) 1 Tablets By Mouth Every day Contact prescribing physician if questions or concerns Allergies sulfa drugs (Unknown) Problems Ongoing - Any problem that you are currently receiving treatment for. A-fib Aortic valve regurgitation BMI 30.0-30.9,adult Cardiomyopathy Congestive heart failure HTN (hypertension) Hypothyroidism Left atrial enlargement Lower extremity edema LVH (left ventricular hypertrophy) Osteoporosis Positive fecal occult blood test Normal [facility] Physician Referralon 023 Physician Referral [id number] #1.00CD:127 Normal [facility] OCC BLD IMMUNO SCREENon 01-04 OCCULT BLOOD Positive Abnormal NEGATIVE [facility] Comment on above: Performed By: #### O BSCRN #### [facility] [address] [address] [address] Dinah Rodriges CBC AUTO DIFFon 01-18-2023 BASO # 0.0 103/ul Normal 0.0-0.1 [facility] Comment on above: Performed By: #### C BC #### [facility] [address] [address] [address] Dinah Rodriges Basophils/100 WBC (Bld) 0.6 % Normal 0.2-2.0 [facility] Comment on above: Performed By: #### C BC #### [facility] [address] [place] [address] Dr. Dinah Rodriges EO # 0.1 103/ul Normal 0.0-0.7 [facility] Comment on above: Performed By: #### C BC #### [facility] [address] [place] [address] Dr. Dinah Rodriges Eosinophils/100 WBC (Bld) 1.8 % Normal 0.9-7.0 [facility] Comment on above: Performed By: #### C BC #### [facility] [address] [place] [address] Dr. Dinah Rodriges Erythrocyte distribution width (RBC) [Ratio] 12.7 % Normal 11.0-15.0 [facility] Comment on above: Performed By: #### C BC #### [facility] [address] [place] [address] Dr. Dinah Rodriges Hematocrit (Bld) [Volume fraction] 39.7 % Normal 36.0-48.0 [facility] Comment on above: Performed By: #### C BC #### [facility] [address] [place] [address] Dr. Dinah Rodriges Hemoglobin (Bld) [Mass/Vol] 12.6 g/dL Normal 12.0-16.0 [facility] Comment on above: Performed By: #### C BC #### [facility] [address] [place] [address] Dr. Dinah Rodriges IG # 0.01 10e3/ul Normal 0.00-0.03 [facility] Comment on above: Performed By: #### C BC #### [facility] [address] [place] [address] Dr. Dinah Rodriges IG % 0.2 % Normal 0.0-0.5 [facility] Comment on above: Performed By: #### C BC #### [facility] [address] [place] [address] Dr. Dinah Rodriges LYMPH # 1.5 103/ul Normal 1.2-3.8 [facility] Comment on above: Performed By: #### C BC #### [facility] [address] [place] [address] Dr. Dinah Rodriges Lymphocytes/100 WBC (Bld) 28.7 % Normal 20.5-60.0 [facility] Comment on above: Performed By: #### C BC #### [facility] [address] [place] [address] Dr. Dinah Rodriges MANUAL DIFF REQ NO Normal [facility] Comment on above: Performed By: #### C BC #### [facility] [address] [place] [address] Dr. Dinah Rodriges MCH (RBC) [Entitic mass] 30.7 pg Normal 26.7-34.0 [facility] Comment on above: Performed By: #### C BC #### [facility] [address] [place] [address] Dr. Dinah Rodriges MCHC (RBC) [Mass/Vol] 31.7 g/dL Normal 29.9-35.2 [facility] Comment on above: Performed By: #### C BC #### [facility] [address] [place] [address] Dr. Dinah Rodriges MCV (RBC) [Entitic vol] 96.8 fL Normal 81.0-99.0 [facility] Comment on above: Performed By: #### C BC #### [facility] [address] [place] [address] Dr. Dinah Rodriges MONO # 0.4 103/ul Normal 0.3-0.8 [facility] Comment on above: Performed By: #### C BC #### [facility] [address] [place] [address] Dr. Dinah Rodriges Monocytes/100 WBC (Bld) 7.3 % Normal 1.7-12.0 [facility] Comment on above: Performed By: #### C BC #### [facility] [address] [place] [address] Dr. Dinah Rodriges NEUT # 3.1 103/ul Normal 1.4-6.5 [facility] Comment on above: Performed By: #### C BC #### [facility] [address] [place] [address] Dr. Dinah Rodriges Neutrophils/100 WBC (Bld) 61.4 % Normal 43.0-75.0 [facility] Comment on above: Performed By: #### C BC #### [facility] [address] [address] [address] Dinah Rodriges Platelet mean volume (Bld) [Entitic vol] 9.7 fL Normal 9.5-13.5 [facility] Comment on above: Performed By: #### C BC #### [facility] [address] [place] [address] Dr. Dinah Rodriges PLT 163 103/ul Normal 150-450 [facility] Comment on above: Performed By: #### C BC #### [facility] [address] [place] [address] Dr. Dinah Rodriges RBC 4.10 106/ul Critically low 4.20-5.40 [facility] Comment on above: Performed By: #### C BC #### [facility] [address] [place] [address] Dr. Dinah Rodriges WBC 5.1 103/ul Normal 4.0-11.0 [facility] Comment on above: Performed By: #### C BC #### [facility] [address] [place] [address] Dr. Dinah Rodriges FREE T3on 01-18-2023 FREE T3 2.11 pg/mlL Critically low 2.18-3.98 [facility] Comment on above: Performed By: #### C MP, TSH, T4, LIPID, FT3 #### [facility] [address] [place] [address] Dr. Dinah Rodriges GLYCOHEMOGLOBIN A1Con 2022 ADA RECOMMENDATION SEE BELOW Normal [facility] Comment on above: Result Comment: ADA RECOMMENDED LIMIT 4.0 - 6.0 ADA THERAPEUTIC TARGET < 7.0 ACTION SUGGESTED > 7.0 Performed By: #### A 1C ####[facility] [address] [place], [place] [address]VmDr. Dinah Rodriges Glucose [Mass/Vol] 105 mg/dL Normal [facility] Comment on above: Performed By: #### A 1C ####[facility] [address] [place], [place] [address]YdDr. Dinah Rodriges HbA1c (Bld) [Mass fraction] 5.3 % Normal 4.5-6.2 [facility] Comment on above: Performed By: #### A 1C ####[facility] [id number] [id number]. Dinah Rodriges LIPID PROFILEon 01-18-2023 CHOL-HDL RATIO NORM SEE BELOW Normal [facility] Comment on above: Result Comment: 3.3 - 4.4 LOW RISK 4.4 - 7.1 AVERAGE RISK 7.1 - 11.0 MODERATE RISK >11.0 HIGH RISK Performed By: #### C MP, TSH, T4, LIPID, FT3 #### [facility] [address] [address] [address] Dinah Rodriges Cholesterol [Mass/Vol] 168 mg/dL Normal <=200 [facility] Comment on above: Performed By: #### C MP, TSH, T4, LIPID, FT3 #### [facility] [address] [address] [address] Dinah Rodriges Cholesterol in HDL [Mass/Vol] 61 mg/dL Critically high 40-60 [facility] Comment on above: Performed By: #### C MP, TSH, T4, LIPID, FT3 #### [facility] [address] [address] [address] Dinah Rodriges Cholesterol in LDL [Mass/Vol] 94.0 mg/dL Normal [facility] Comment on above: Performed By: #### C MP, TSH, T4, LIPID, FT3 #### [facility] [address] [address] [address] Dinah Rodriges Cholesterol.total/Ch olesterol in HDL [Mass ratio] 2.8 {ratio} Normal [facility] Comment on above: Performed By: #### C MP, TSH, T4, LIPID, FT3 #### [facility] [address] [address] [address] Dinah Rodriges HDL NORMAL > or = 60 mg/dl - LOW CARDIOVASCULAR RISK <40 mg/dl - HIGH CARDIOVASCULAR RISK Normal [facility] Comment on above: Performed By: #### C MP, TSH, T4, LIPID, FT3 #### [facility] [address] [address] [address] Dinah Rodriges LDL CALC NORMAL SEE BELOW Normal [facility] Comment on above: Result Comment: <100 mg/dl OPTIMAL 100 - 129 mg/dl NEAR OR ABOVE OPTIMAL 130 - 159 mg/dl BORDERLINE HIGH 160 - 189 mg/dl HIGH >190 mg/dl VERY HIGH Performed By: #### C MP, TSH, T4, LIPID, FT3 #### [facility] [address] [address] [address] Dinah Rodriges Triglyceride [Mass/Vol] 65 mg/dL Normal <=150 [facility] Comment on above: Performed By: #### C MP, TSH, T4, LIPID, FT3 #### [facility] [address] [place] [address] Dr. Dinah Rodriges VLDL CALC 13.0 mg/dL Normal [facility] Comment on above: Performed By: #### C MP, TSH, T4, LIPID, FT3 #### [facility] [address] [place] [address] Dr. Dinah Rodriges PROF 14(COMP METB)on 023 Albumin [Mass/Vol] 3.4 g/dL Normal 3.4-5.0 [facility] Comment on above: Performed By: #### C MP, TSH, T4, LIPID, FT3 #### [facility] [address] [address] [address] Dinah Rodriges Albumin/Globulin [Mass ratio] 1.0 {ratio} Normal [facility] Comment on above: Performed By: #### C MP, TSH, T4, LIPID, FT3 #### [facility] [address] [address] [address] Dinah Rodriges ALP [Catalytic activity/Vol] 59 U/L Normal 46-116 [facility] Comment on above: Performed By: #### C MP, TSH, T4, LIPID, FT3 #### [facility] [address] [place] [address] Dr. Dinah Rodriges ALT [Catalytic activity/Vol] 13 U/L Critically low 14-59 [facility] Comment on above: Performed By: #### C MP, TSH, T4, LIPID, FT3 #### [facility] [address] [place] [address] Dr. Dinah Rodriges Anion gap [Moles/Vol] 10.7 mmol/L Normal [facility] Comment on above: Performed By: #### C MP, TSH, T4, LIPID, FT3 #### [facility] [address] [place] [address] Dr. Dinah Rodriges AST [Catalytic activity/Vol] 14 U/L Critically low 15-37 [facility] Comment on above: Performed By: #### C MP, TSH, T4, LIPID, FT3 #### [facility] [address] [place] [address] Dr. Dinah Rodriges Bilirubin [Mass/Vol] 0.3 mg/dL Normal 0.2-1.0 [facility] Comment on above: Performed By: #### C MP, TSH, T4, LIPID, FT3 #### [facility] [address] [place] [address] Dr. Dinah Rodriges Calcium [Mass/Vol] 9.4 mg/dL Normal 8.5-10.1 [facility] Comment on above: Performed By: #### C MP, TSH, T4, LIPID, FT3 #### [facility] [address] [place] [address] Dr. Dinah Rodriges Chloride [Moles/Vol] 106 mmol/L Normal 98-107 [facility] Comment on above: Performed By: #### C MP, TSH, T4, LIPID, FT3 #### [facility] [address] [place] [address] Dr. Dinah Rodriges CO2 [Moles/Vol] 31.9 mmol/L Normal 21.0-32.0 [facility] Comment on above: Performed By: #### C MP, TSH, T4, LIPID, FT3 #### [facility] [address] [address] [address] Dinah Rodriges Creatinine [Mass/Vol] 0.95 mg/dL Normal 0.55-1.02 [facility] Comment on above: Performed By: #### C MP, TSH, T4, LIPID, FT3 #### [facility] [address] [place] [address] Dr. Dinah Rodriges EGFR-AF BAHRAINI >60 Normal >=60 [facility] Comment on above: Performed By: #### C MP, TSH, T4, LIPID, FT3 #### [facility] [address] [place] [address] Dr. Dinah Rodriges EGFR-NON AF BAHRAINI 57 mL/min/1.73m2 Critically low >=60 [facility] Comment on above: Performed By: #### C MP, TSH, T4, LIPID, FT3 #### [facility] [address] [place] [address] Dr. Dinah Rodriges Globulin (S) [Mass/Vol] 3.4 g/dL Normal [facility] Comment on above: Performed By: #### C MP, TSH, T4, LIPID, FT3 #### [facility] [address] [place] [address] Dr. Dinah Rodriges Glucose [Mass/Vol] 88 mg/dL Normal 74-106 [facility] Comment on above: Performed By: #### C MP, TSH, T4, LIPID, FT3 #### [facility] [address] [place] [address] Dr. Dinah Rodriges Potassium [Moles/Vol] 4.6 mmol/L Normal 3.5-5.1 [facility] Comment on above: Performed By: #### C MP, TSH, T4, LIPID, FT3 #### [facility] [address] [place] [address] Dr. Dinah Rodriges Protein [Mass/Vol] 6.8 g/dL Normal 6.4-8.2 [facility] Comment on above: Performed By: #### C MP, TSH, T4, LIPID, FT3 #### [facility] [address] [place] [address] Dr. Dinah Rodriges Sodium [Moles/Vol] 144 mmol/L Normal 136-145 [facility] Comment on above: Performed By: #### C MP, TSH, T4, LIPID, FT3 #### [facility] [address] [place] [address] Dr. Dinah Rodriges Urea nitrogen [Mass/Vol] 18.0 mg/dL Normal 7.0-18.0 [facility] Comment on above: Performed By: #### C MP, TSH, T4, LIPID, FT3 #### [facility] [address] [place] [address] Dr. Dinah Rodriges Urea nitrogen/Creatinine [Mass ratio] 18.9 mg/mg Normal [facility] Comment on above: Performed By: #### C MP, TSH, T4, LIPID, FT3 #### [facility] [address] [place] [address] Dr. Dinah Rodriges T4on 01-18-2023 T4 [Mass/Vol] 9.30 ug/dL Normal 4.80-13.90 [facility] Comment on above: Performed By: #### C MP, TSH, T4, LIPID, FT3 #### [facility] [address] [place] [address] Dr. Dinah Rodriges TSHon 01-18-2023 TSH 0.872 uIU/mL Normal 0.358-3.740 [facility] Comment on above: Performed By: #### C MP, TSH, T4, LIPID, FT3 #### [facility] [address] [place] [address] Dr. Dinah Rodriges BNPon 01-20-2022 Natriuretic peptide B (Bld) [Mass/Vol] 464.0 pg/mL Normal <=1,800.0 [facility] Comment on above: Performed By: #### T SH, BNP, T7, LIPID, CMP ####[facility] [address] [address]Dr. Dinah Rodriges CBC AUTO DIFFon 05-17-2022 BASO # 0.0 103/ul Normal 0.0-0.1 [facility] Comment on above: Performed By: #### C BC #### [facility] [address] [place] [address] Dr. Dinah Rodriges Basophils/100 WBC (Bld) 0.4 % Normal 0.2-2.0 [facility] Comment on above: Performed By: #### C BC #### [facility] [address] [place] [address] Dr. Dinah Rodriges EO # 0.1 103/ul Normal 0.0-0.7 [facility] Comment on above: Performed By: #### C BC #### [facility] [address] [place] [address] Dr. Dinah Rodriges Eosinophils/100 WBC (Bld) 1.9 % Normal 0.9-7.0 [facility] Comment on above: Performed By: #### C BC #### [facility] [address] [place] [address] Dr. Dinah Rodriges Erythrocyte distribution width (RBC) [Ratio] 12.7 % Normal 11.0-15.0 [facility] Comment on above: Performed By: #### C BC #### [facility] [address] [place] [address] Dr. Dinah Rodriges Hematocrit (Bld) [Volume fraction] 35.0 % Critically low 36.0-48.0 [facility] Comment on above: Performed By: #### C BC #### [facility] [address] [place] [address] Dr. Dinah Rodriges Hemoglobin (Bld) [Mass/Vol] 11.5 g/dL Critically low 12.0-16.0 [facility] Comment on above: Performed By: #### C BC #### [facility] [address] [place] [address] Dr. Dinah Rodriges IG # 0.01 10e3/ul Normal 0.00-0.03 [facility] Comment on above: Performed By: #### C BC #### [facility] [address] [place] [address] Dr. Dinah Rodriges IG % 0.2 % Normal 0.0-0.5 [facility] Comment on above: Performed By: #### C BC #### [facility] [address] [place] [address] Dr. Dinah Rodriges LYMPH # 1.4 103/ul Normal 1.2-3.8 [facility] Comment on above: Performed By: #### C BC #### [facility] [address] [place] [address] Dr. Dinah Rodriges Lymphocytes/100 WBC (Bld) 26.9 % Normal 20.5-60.0 [facility] Comment on above: Performed By: #### C BC #### [facility] [address] [place] [address] Dr. Dinah Rodriges MANUAL DIFF REQ NO Normal [facility] Comment on above: Performed By: #### C BC #### [facility] [address] [place] [address] Dr. Dinah Rodriges MCH (RBC) [Entitic mass] 33.0 pg Normal 26.7-34.0 [facility] Comment on above: Performed By: #### C BC #### [facility] [address] [place] [address] Dr. Dinah Rodriges MCHC (RBC) [Mass/Vol] 32.9 g/dL Normal 29.9-35.2 [facility] Comment on above: Performed By: #### C BC #### [facility] [address] [place] [address] Dr. Dinah Rodriges MCV (RBC) [Entitic vol] 100.3 fL Critically high 81.0-99.0 [facility] Comment on above: Performed By: #### C BC #### [facility] [address] [place] [address] Dr. Dinah Rodriges MONO # 0.4 103/ul Normal 0.3-0.8 [facility] Comment on above: Performed By: #### C BC #### [facility] [address] [place] [address] Dr. Dinah Rodriges Monocytes/100 WBC (Bld) 7.6 % Normal 1.7-12.0 [facility] Comment on above: Performed By: #### C BC #### [facility] [address] [address] [address] Dinah Rodriges NEUT # 3.3 103/ul Normal 1.4-6.5 [facility] Comment on above: Performed By: #### C BC #### [facility] [address] [address] [address] Dinah Rodriges Neutrophils/100 WBC (Bld) 63.0 % Normal 43.0-75.0 [facility] Comment on above: Performed By: #### C BC #### [facility] [address] [address] [address] Dinah Rodriges Platelet mean volume (Bld) [Entitic vol] 10.0 fL Normal 9.5-13.5 [facility] Comment on above: Performed By: #### C BC #### [facility] [address] [address] [address] Dinah Rodriges PLT 165 103/ul Normal 150-450 [facility] Comment on above: Performed By: #### C BC #### [facility] [address] [address] [address] Dinah Rodriges RBC 3.49 106/ul Critically low 4.20-5.40 [facility] Comment on above: Performed By: #### C BC #### [facility] [address] [address] [address] Dinah Rodriges WBC 5.3 103/ul Normal 4.0-11.0 [facility] Comment on above: Performed By: #### C BC #### [facility] [address] [address] [address] Dinah Rodriges FREE THYROXINE INDEX T7on FTI 3.37 Normal 1.30-4.50 [facility] Comment on above: Performed By: #### T SH, BNP, T7, LIPID, CMP ####[facility] [address] [address]Dr. Dinah Rodriges T3U 34.0 % Normal 30.0-39.0 [facility] Comment on above: Performed By: #### T SH, BNP, T7, LIPID, CMP ####[facility] [address] [address]Dr. Dinah Rodriges T4 [Mass/Vol] 9.90 ug/dL Normal 4.80-13.90 [facility] Comment on above: Performed By: #### T SH, BNP, T7, LIPID, CMP ####[facility] [address] [address]Dr. Dinah Rodriges GLYCOHEMOGLOBIN A1Con 2021 ADA RECOMMENDATION SEE BELOW Normal [facility] Comment on above: Result Comment: ADA RECOMMENDED LIMIT 4.0 - 6.0 ADA THERAPEUTIC TARGET < 7.0 ACTION SUGGESTED > 7.0 Performed By: #### A 1C ####[facility] [address] [place], [place] [address]Dr. Dinah Rodriges Glucose [Mass/Vol] 103 mg/dL Normal [facility] Comment on above: Performed By: #### A 1C ####[facility] [address] [place], [place] [address]Dr. Dinah Rodriges HbA1c (Bld) [Mass fraction] 5.2 % Normal 4.5-6.2 [facility] Comment on above: Performed By: #### A 1C ####[facility] [address] [place], [place] [address]Dr. Dinah Rodriges IRONon 01-20-2022 Iron [Mass/Vol] 79.0 ug/dL Normal 50.0-170.0 [facility] Comment on above: Performed By: #### I KINZA ####[facility] [address] [address]Dr. Dinah Rodriges LIPID PROFILEon 01-20-2022 CHOL-HDL RATIO NORM SEE BELOW Normal [facility] Comment on above: Result Comment: 3.3 - 4.4 LOW RISK 4.4 - 7.1 AVERAGE RISK 7.1 - 11.0 MODERATE RISK >11.0 HIGH RISK Performed By: #### T SH, BNP, T7, LIPID, CMP ####[facility] [address] [place], [place] [address]Dr. Dinah Rodriges Cholesterol [Mass/Vol] 153 mg/dL Normal <=200 [facility] Comment on above: Performed By: #### T SH, BNP, T7, LIPID, CMP ####[facility] [address] [address]Dr. Dinah Rodriges Cholesterol in HDL [Mass/Vol] 54 mg/dL Normal 40-60 [facility] Comment on above: Performed By: #### T SH, BNP, T7, LIPID, CMP ####[facility] [address] [address]Dr. Dinah Rodriges Cholesterol in LDL [Mass/Vol] 78.8 mg/dL Normal [facility] Comment on above: Performed By: #### T SH, BNP, T7, LIPID, CMP ####[facility] [address] [address]Dr. Dinah Rodriges Cholesterol.total/Ch olesterol in HDL [Mass ratio] 2.8 {ratio} Normal [facility] Comment on above: Performed By: #### T SH, BNP, T7, LIPID, CMP ####[facility] [address] [address]Dr. Dinah Rodriges HDL NORMAL > or = 60 mg/dl - LOW CARDIOVASCULAR RISK <40 mg/dl - HIGH CARDIOVASCULAR RISK Normal [facility] Comment on above: Performed By: #### T SH, BNP, T7, LIPID, CMP ####[facility] [address] [address]Dr. Dinah Rodriges LDL CALC NORMAL SEE BELOW Normal [facility] Comment on above: Result Comment: <100 mg/dl OPTIMAL 100 - 129 mg/dl NEAR OR ABOVE OPTIMAL 130 - 159 mg/dl BORDERLINE HIGH 160 - 189 mg/dl HIGH >190 mg/dl VERY HIGH Performed By: #### T SH, BNP, T7, LIPID, CMP ####[facility] [address] [address]Dr. Dianh Rodriges Triglyceride [Mass/Vol] 101 mg/dL Normal <=150 [facility] Comment on above: Performed By: #### T SH, BNP, T7, LIPID, CMP ####[facility] [address] [place], [place] [address]Al. Dinah Rodriges VLDL CALC 20.2 mg/dL Normal [facility] Comment on above: Performed By: #### T SH, BNP, T7, LIPID, CMP ####[facility] [address] [place], [place] [address]Bc. Dinah Rodriges MG MAMM SCREEN 3D TENZIN CADon 01-20-2022 MG MAMM SCREEN 3D TENZIN CAD Patient: NEREIDA AGOSTO Exam Date: 01/20/2022 : 1940 Gender:F Ordering : DR JACINTO SERVIN . Admission #: [id number] Family : Order #: [id number] CLICK HERE TO VIEW EXAM RADIOLOGY REPORT PROCEDURE: MAMMOGRAM SCREENING 3D BILATERAL CAD COMPARISON: MG MAMM SCREEN TENZIN W CAD, 10/18/2019. MG MAMM SCREEN TENZIN W CAD, 10/21/2020. INDICATIONS: Screening mammography Calculator Name NCI Breast Cancer Risk Assessment Tool 5 Year Breast Cancer Risk Not Reported. Lifetime Breast Cancer Risk Not Reported. Personal Breast Cancer No Personal Ovarian Cancer No Treatments None Family Cancers None LOCATION: [facility] BREAST COMPOSITION: Scattered areas fibroglandular density. FINDINGS: DIAGNOSTIC CATEGORY 1--NEGATIVE. NO CHANGE FROM COMPARISON ASSESSMENT. Scattered benign-appearing calcifications are present. Scattered benign-appearing lymph nodes are present. RIGHT BREAST: No significant suspicious finding. LEFT BREAST: No significant suspicious finding. RECOMMENDATIONS: ROUTINE MAMMOGRAM AND CLINICAL EVALUATION IN 12 MONTHS. PLEASE NOTE: A NORMAL MAMMOGRAM DOES NOT EXCLUDE THE POSSIBILITY OF BREAST CANCER. A CLINICALLY SUSPICIOUS PALPABLE LUMP SHOULD BE BIOPSIED. Dictated by: Kelsi Monzon MD on 01/20/2022 at 11:16 Approved by: Kelsi Monzon MD on 01/20/2022 at 11:33 Normal [facility] PROF 14(COMP METB)on 022 Albumin [Mass/Vol] 3.3 g/dL Critically low 3.4-5.0 [facility] Comment on above: Performed By: #### T SH, BNP, T7, LIPID, CMP ####[facility] [address] [place], [place] [address]UkSimran Rodriges Albumin/Globulin [Mass ratio] 1.0 {ratio} Normal [facility] Comment on above: Performed By: #### T SH, BNP, T7, LIPID, CMP ####[facility] [address] [address]Dr. Dinah Rodriges ALP [Catalytic activity/Vol] 69 U/L Normal 46-116 [facility] Comment on above: Performed By: #### T SH, BNP, T7, LIPID, CMP ####[facility] [address] [address]Dr. Dinah Rodriges ALT [Catalytic activity/Vol] 6 U/L Critically low 14-59 [facility] Comment on above: Performed By: #### T SH, BNP, T7, LIPID, CMP ####[facility] [address] [place], [place] [address]Dr. Dinah Rodriges Anion gap [Moles/Vol] 8.7 mmol/L Normal [facility] Comment on above: Performed By: #### T SH, BNP, T7, LIPID, CMP ####[facility] [address] [place], [place] [address]Dr. Dinah Rodriges AST [Catalytic activity/Vol] 12 U/L Critically low 15-37 [facility] Comment on above: Performed By: #### T SH, BNP, T7, LIPID, CMP ####[facility] [address] [address]Dr. Dinah Rodriges Bilirubin [Mass/Vol] 0.3 mg/dL Normal 0.2-1.0 [facility] Comment on above: Performed By: #### T SH, BNP, T7, LIPID, CMP ####[facility] [address] [place], [place] [address]Dr. Dinah Rodriges Calcium [Mass/Vol] 9.3 mg/dL Normal 8.5-10.1 [facility] Comment on above: Performed By: #### T SH, BNP, T7, LIPID, CMP ####[facility] [address] [address]Dr. Dinah Rodriges Chloride [Moles/Vol] 104 mmol/L Normal 98-107 [facility] Comment on above: Performed By: #### T SH, BNP, T7, LIPID, CMP ####[facility] [address] [address]Dr. Dinah Rodriges CO2 [Moles/Vol] 33.2 mmol/L Critically high 21.0-32.0 [facility] Comment on above: Performed By: #### T SH, BNP, T7, LIPID, CMP ####[facility] [address] [address]Dr. Dinah Rodriges Creatinine [Mass/Vol] 1.11 mg/dL Critically high 0.55-1.02 [facility] Comment on above: Performed By: #### T SH, BNP, T7, LIPID, CMP ####[facility] [address] [place], [place] [address]Dr. Dinah Rodriges EGFR-AF BAHRAINI 57 mL/min/1.73m2 Critically low >=60 [facility] Comment on above: Performed By: #### T SH, BNP, T7, LIPID, CMP ####[facility] [address] [place], [place] [address]Dr. Dinah Rodriges EGFR-NON AF BAHRAINI 47 mL/min/1.73m2 Critically low >=60 [facility] Comment on above: Performed By: #### T SH, BNP, T7, LIPID, CMP ####[facility] [address] [place], [place] [address]Dr. Dinah Rodriges Globulin (S) [Mass/Vol] 3.4 g/dL Normal [facility] Comment on above: Performed By: #### T SH, BNP, T7, LIPID, CMP ####[facility] [address] [place], [place] [address]Dr. Dinah Rodriges Glucose [Mass/Vol] 84 mg/dL Normal 74-106 [facility] Comment on above: Performed By: #### T SH, BNP, T7, LIPID, CMP ####[facility] [address] [place], [place] [address]Dr. Dinah Rodriges Potassium [Moles/Vol] 4.9 mmol/L Normal 3.5-5.1 [facility] Comment on above: Performed By: #### T SH, BNP, T7, LIPID, CMP ####[facility] [address] [address]Dr. Dinah Rodriges Protein [Mass/Vol] 6.7 g/dL Normal 6.4-8.2 [facility] Comment on above: Performed By: #### T SH, BNP, T7, LIPID, CMP ####[facility] [address] [address]Dr. Dinah Rodriges Sodium [Moles/Vol] 141 mmol/L Normal 136-145 [facility] Comment on above: Performed By: #### T SH, BNP, T7, LIPID, CMP ####[facility] [address] [address]Dr. Dinah Rodriges Urea nitrogen [Mass/Vol] 18.0 mg/dL Normal 7.0-18.0 [facility] Comment on above: Performed By: #### T SH, BNP, T7, LIPID, CMP ####[facility] [address] [address]Dr. Dinah Rodriges Urea nitrogen/Creatinine [Mass ratio] 16.2 mg/mg Normal [facility] Comment on above: Performed By: #### T SH, BNP, T7, LIPID, CMP ####[facility] [address] [address]Dr. Dinah Rodriges TSHon 01-20-2022 TSH 1.061 uIU/mL Normal 0.358-3.740 [facility] Comment on above: Performed By: #### T SH, BNP, T7, LIPID, CMP ####[facility] [address] [address]Dr. Dinah Rodriges TSH RANGE SEE BELOW Normal [facility] Comment on above: Result Comment: <0.3 4 UIU/ml HYPERTHYROID 0.34-5.60 UIU/ml EUTHYROID >5.60 UIU/ml HYPOTHYROID Performed By: #### T SH, BNP, T7, LIPID, CMP ####[facility] [address] [place], [place] [address]Dr. Dinah Rodriges XR DEXA BONE DENSITYon 01-20 XR DEXA BONE DENSITY EXAMINATION: XR DEX A BONE DENSITY, 01/20/2022 10:40 AM EDT HISTORY: Primary ovarian failure COMPARISON: DEXA bone densitometry 03/22/2017 TECHNIQUE: Dual-energy X-ray absorptiometry (DEXA) bone density study performed for the axial skeleton. FINDINGS: SPINE ANALYSIS: Average bone mineral density is 1.052 g/cm2. T-score (standard deviation relative to young adult mean): -1.2 . -14.1% change since prior study. HIP ANALYSIS: Lowest bone mineral density is within the right femoral trochanter, 0.495 g/cm2. T-score (standard deviation relative to young adult mean): -3.1 . -26.1% change since prior study. IMPRESSION: [employer] Classification: Osteoporosis - High Fracture Risk Electronically authenticated by: DUDLEY RYDER Date: 2022-01-20 11:30 Normal [facility] Cardiovascular Lab Reporton 12-23-2018 Cardiovascular Lab Report [facility] Patient Name: [facility] Nereida Rubin MR #: [id number] Department of Physician: Martha Seymour MHailey Division of Service Date: 12/23/2018 Cardiology Birthdate: 1940 Adult Cardiovascular Room #: [address] [address] Cardiovascular Laboratory Report PROCEDURE: Transesophageal echocardiogram and cardioversion. INDICATION: Atrial fibrillation. FELLOW: Neto Doty MD PROCEDURE IN DETAIL: An informed consent was obtained from the patient after explaining the indication, risks and benefits, and alternatives. The patient understood and agreed and signed the consent form. The patient was brought to the label tacker and transesophageal echocardiogram was performed under conscious sedation. The patient obtained Versed and fentanyl during the procedure. The transesophageal echocardiogram did not show any thrombus in the left atrial appendage. Full JEANNA reported elsewhere. After the transesophageal echocardiogram, synchronized, biphasic cardioversion was performed using 360 joules of biphasic, synchronized energy. The patient's rhythm was successfully converted to sinus rhythm as evidenced by telemetry. No complications were noted throughout the procedure. IMPRESSIONS: Successful elective, electrical cardioversion of atrial fibrillation to sinus rhythm RECOMMENDATIONS: 1. A 12 lead EKG will be obtained to document sinus rhythm 2. The patient will be started on PO Amiodarone in an attempt to maintain sinus rhythm; routine labs, pulmonary function testing and eye examinations will be scheduled 3. Continue anti-coagulation as clinically indicated 4. The patient will follow up with me in the [facility] in 2-4 weeks Electronically Signed by: Goldie Waldrop M.D. 01/05/2019 08:36 A Goldie Waldrop M.D. I was present for the entire procedure. Date Dict: 12/23/2018/03:28 P/Neto Doty MD Date Trans: 12/23/2018 04:19 P/beth [id number] cc: Jacinto Servin M.D. [address], [facility] [place] [address] [place] [facility] Cardiovascular Lab Reporton 12-16-2018 Cardiovascular Lab Report [facility] Patient Name: [facility] Nereida Rubin MR #: [id number] Department of Physician: Martha Ken M.D. Division of Service Date: 12/15/2018 Cardiology Birthdate: 1940 Adult Cardiovascular Room #: 3CD [id number] [place] [address] Cardiovascular Laboratory Report CLINICAL PRESENTATION: The patient is a 78-year-old female with past medical history significant for hypertension. She was admitted to [facility] with worsening shortness of breath. She was diagnosed with acute congestive heart failure and atrial fibrillation with a rapid ventricular rate. She was evaluated by my colleague, Dr. Lee, [place] [facility]. EKG showed ST elevations in the anterolateral leads and she was transferred urgently to the [facility] due to possible acute myocardial infarction. FINAL IMPRESSION: 1. Mild coronary artery disease. 2. Left ventriculogram shows severe apical hypokinesis and hyperdynamic base consistent with Takotsubo cardiomyopathy, also known as stress cardiomyopathy. PLAN: 1. Optimal medical therapy for acute systolic congestive heart failure/takotsubo cardiomyopathy. 2. Medical therapy for atrial fibrillation as appropriate. 3. Right heart catheterization shows mildly increased filling pressures and borderline reduced cardiac index. PROCEDURES: Right heart catheterization, left heart catheterization, left ventriculogram, coronary angiogram, conscious sedation 40 minutes. INDICATIONS: Acute systolic congestive heart failure, possible ST-elevation myocardial infarction on EKG. PROCEDURE DESCRIPTION: The patient was brought urgently to the cardiac catheterization lab. Informed written consent was obtained. She was prepped and draped in usual sterile fashion over the bilateral groin. Time-out was performed. She was given Versed and fentanyl for sedation. A 1% lidocaine was infiltrated over the right femoral artery and by using ultrasound guidance and micropuncture access technique, a 6-Chinese sheath placed in the right common femoral artery and vein. All catheter exchanges were made over the J-tip guidewire. First, the right heart catheterization was performed. The Mark catheter was advanced under fluoroscopic and hemodynamic monitoring to the right atrium. Pressures were obtained in the right atrium, right ventricle, pulmonary artery, pulmonary capillary wedge position. Oxygen saturations drawn from the pulmonary artery and the femoral artery and then the Maria Teresa cardiac output and cardiac index were calculated. The Mark catheter was then removed. Next, the coronary angiogram was performed. The left main was engaged with a JL4 catheter. Right coronary artery was then engaged with a JR4 catheter. Coronary angiogram was performed in multiple orthogonal views using hand injection of contrast. Next, the left ventriculogram was performed. Angled pigtail catheter was manipulated beyond the aortic valve to the left ventricle. Left heart pressures were obtained. Left ventriculogram was performed. Pullback was performed. At this point, the procedure was completed. All catheters and wires removed from the body. The right femoral sheath was removed. An Angio-Seal closure device was used to obtain hemostasis. The right femoral venous sheath was removed and manual pressure was applied to obtain hemostasis. There were no apparent complications. TOTAL CONTRAST: 110 mL. TOTAL FLUOROSCOPY TIME: 7 minutes and 56 seconds, 0.6 Gy. TOTAL CONSCIOUS SEDATION TIME: 40 minutes. FINDINGS: Hemodynamics: 1. RA mean 12. 2. RV 31/12. 3. PA 37/22 (mean 27). 4. Pulmonary capillary wedge pressure mean 21. 5. AO 96/57 (MEP 73). 6. LV 99/LVEDP 21 mmHg. 7. Maria Teresa cardiac output 4.0 L/minute. 8. Cardiac index 2.3 L/minute per meter squared. 9. Oxygen saturations, PA sat 55% and AO sat 91%. LEFT VENTRICULOGRAM: Left ventriculogram shows severe hypokinesis of the apical anterolateral, apical, and apical inferior segments. The base of the left ventricle is hyperdynamic. These findings are consistent with Takotsubo cardiomyopathy. The overall EF is approximately 30%. There was 1+ MR. CORONARY ANGIOGRAM: Left main coronary artery: Patent. Left anterior descending coronary artery: The LAD is a large vessel and is patent. The distal LAD has a very small caliber and appears possibly consistent with vasospasm or just related to the changes seen with Takotsubo cardiomyopathy. Left circumflex coronary artery: Circumflex is patent and has 20% stenosis in its mid segment. Right coronary artery: The RCA is a large vessel and is dominant. The RCA has a 20% stenosis in its midsegment. The PDA and NAYELI are widely patent. Electronically Signed by: Jj Cano M.D. 12/16/2018 09:18 A Jj Cano M.D. Date Dict: 12/15/2018/12:51 P/Jj Cano M.D. Date Trans: 12/16/2018 06:03 Denis/beth [id number] cc: Jacinto Servin M.D. [place] [address] [facility] [place] [address] Peter Lee M.D. [facility] [address] Normal [facility] BASIC METABOLIC PANELon 12-05 Calcium [Mass/Vol] 9.3 mg/dL Normal 8.6-10.3 [facility] Comment on above: Order Comment: No: D o not add to previous draw Performed By: #### 4 6413, 56099, 51595, 10559, 99292 #### [facility] [address] [place] [address], [place] Chloride [Moles/Vol] 102 mmol/L Normal 98-107 [facility] Comment on above: Order Comment: No: D o not add to previous draw Performed By: #### 4 6413, 21451, 35358, 29380, 67093 #### [facility] [address] [place] [address], [place] CO2 [Moles/Vol] 27 mmol/L Normal 21-31 The [facility] Comment on above: Order Comment: No: D o not add to previous draw Performed By: #### 4 6413, 80398, 81563, 22271, 62882 #### [facility] [address] [place] [address], [place] Creatinine [Mass/Vol] 0.91 mg/dL Normal 0.60-1.20 [facility] Comment on above: Order Comment: No: D o not add to previous draw Performed By: #### 4 6413, 36610, 02945, 64545, 17202 #### [facility] [address] [place] [address], [place] GFR/1.73 sq M predicted among blacks MDRD (S/P/Bld) [Vol rate/Area] mL/min/{1.73_m2} Normal >60 [facility] Comment on above: Order Comment: No: D o not add to previous draw Result Comment: Calc ulation may not be valid for patients over 70 years Performed By: #### 4 6413, 16609, 23355, 53764, 80762 #### [facility] [address] [place] [address], [place] GFR/1.73 sq M predicted among non-blacks MDRD (S/P/Bld) [Vol rate/Area] mL/min/{1.73_m2} Normal >60 [facility] Comment on above: Order Comment: No: D o not add to previous draw Result Comment: Calc ulation may not be valid for patients over 70 years Performed By: #### 4 6413, 32478, 16407, 46264, 84208 #### [facility] [address] [place] [address], [place] Glucose [Mass/Vol] 130 mg/dL High 70-100 [facility] Comment on above: Order Comment: No: D o not add to previous draw Performed By: #### 4 6413, 06019, 80448, 12431, 36598 #### [facility] [address] [place] [address], [facility] Potassium [Moles/Vol] 3.5 mmol/L Normal 3.5-5.1 [facility] Comment on above: Order Comment: No: D o not add to previous draw Performed By: #### 4 6413, 30221, 54580, 38382, 87547 #### [facility] [address] [place] [address], [facility] Sodium [Moles/Vol] 140 mmol/L Normal 136-145 [facility] Comment on above: Order Comment: No: D o not add to previous draw Performed By: #### 4 6413, 42178, 35777, 91428, 85183 #### [facility] [address] [place] [address], [facility] Urea nitrogen [Mass/Vol] 19 mg/dL Normal 7-25 [facility] Comment on above: Order Comment: No: D o not add to previous draw Performed By: #### 4 6413, 75280, 34279, 31752, 04116 #### [facility] [address] [place] [address], [place] BNP (B-TYPE NATRIURETIC PEPT CORI)on 12-15-2018 Natriuretic peptide B (Bld) [Mass/Vol] 369 pg/mL High 0-100 [facility] Comment on above: Order Comment: No: D o not add to previous draw Result Comment: Give n the appropriate clinical setting a BNP result of >100 pg/mL indicates congestive heart failure. Performed By: #### 8 5123, 95437 #### [facility] [address] [facility]. [address] CBC COMPLETE BLOOD COUNTon 0 - Erythrocyte distribution width (RBC) [Ratio] 12.9 % Normal 11.5-15.0 [facility] Comment on above: Order Comment: No: D o not add to previous draw Performed By: #### 5 0608 #### [facility] [address] [place] [address], [facility] Hematocrit (Bld) [Volume fraction] 39.0 % Normal 36.0-45.0 [facility] Comment on above: Order Comment: No: D o not add to previous draw Performed By: #### 5 0608 #### [facility] [address] [facility] [address] Hemoglobin (Bld) [Mass/Vol] 12.6 g/dL Normal 12.0-15.0 [facility] Comment on above: Order Comment: No: D o not add to previous draw Performed By: #### 5 0608 #### [facility] [address] [facility] [place] [address], [facility] MCH (RBC) [Entitic mass] 31.6 pg Normal 27.0-33.0 [facility] Comment on above: Order Comment: No: D o not add to previous draw Performed By: #### 5 0608 #### [facility] [address] [facility] [place] [address], [facility] MCHC (RBC) [Mass/Vol] 32.3 g/dL Normal 32.0-35.0 [facility] Comment on above: Order Comment: No: D o not add to previous draw Performed By: #### 5 0608 #### [facility] [address] [place] [address], [facility] MCV (RBC) [Entitic vol] 97.7 fL Normal 82.0-98.0 [facility] Comment on above: Order Comment: No: D o not add to previous draw Performed By: #### 5 0608 #### [facility] [address] [place] [address], [facility] Nucleated RBC/100 WBC (Bld) [Ratio] 0 % Normal 0-0 [facility] Comment on above: Order Comment: No: D o not add to previous draw Performed By: #### 5 0608 #### [facility] [address] [place] [address], [place] PLAT CNT 252 10*3/uL Normal 150-400 [facility] Comment on above: Order Comment: No: D o not add to previous draw Performed By: #### 5 0608 #### [facility] [address] [place] [address], [facility] RBC (Bld) [#/Vol] 3.99 10*6/uL Normal 3.80-5.00 The [facility] Comment on above: Order Comment: No: D o not add to previous draw Performed By: #### 5 0608 #### [facility] [address] [facility] [place] [address], [facility] WBC (Bld) [#/Vol] 8.04 10*3/uL Normal 4.00-10.60 [facility] Comment on above: Order Comment: No: D o not add to previous draw Performed By: #### 5 0608 #### [facility] [address] [place] [address], [facility] HEMOGLOBIN A1Con 12-15-2018 HbA1c (Bld) [Mass fraction] 108 mg/dL Normal 70-126 [facility] Comment on above: Order Comment: No: D o not add to previous draw Performed By: #### 8 5123, 56477 #### [facility] [address] [place] [address], [facility] HbA1c (Bld) [Mass fraction] 5.4 % Normal 4.0-6.0 [facility] Comment on above: Order Comment: No: D o not add to previous draw Performed By: #### 8 5123, 32551 #### [facility] [address] [place] [address], [facility] LIPID PROFILEon 12-15-2018 Cholesterol [Mass/Vol] 138 mg/dL Normal 120-200 [facility] Comment on above: Order Comment: No: D o not add to previous draw Result Comment: CHOL ESTEROL REFERENCE RANGE: 20 YEARS AND OLDER CARDIOVASCULAR RISK Less than 200 mg/dl Low Risk 200 to 239 mg/dl Borderline Risk 240 mg/dl and greater High Risk Performed By: #### 4 6413, 85491, 57473, 29303, 93985 #### [facility] [address] [place] [address], [facility] Cholesterol in HDL [Mass/Vol] 36 mg/dL Normal 23-92 [facility] Comment on above: Order Comment: No: D o not add to previous draw Result Comment: Slig ht variation in normal range could be due to gender and/or age. HDL CHOLESTEROL REFERENCE RANGE: 20 years and older Cardiovascular Risk > or =60 mg/dL Desirable 40 TO 59 mg/dL Low Risk <40 mg/dL High Risk Performed By: #### 4 6413, 43881, 46679, 15220, 17645 #### [facility] [address] [place] [address], [place] Cholesterol in LDL [Mass/Vol] 81 mg/dL Normal 0-130 [facility] Comment on above: Order Comment: No: D o not add to previous draw Result Comment: LDL IS A CALCULATION LDL IS ONLY VALID IF THE TRIG IS LESS THAN 400. Performed By: #### 4 6413, 77253, 64421, 07423, 94124 #### [facility] [address] [place] [address], [place] Cholesterol.total/Ch olesterol in HDL [Mass ratio] 3.8 {ratio} Normal .0-4.5 [facility] Comment on above: Order Comment: No: D o not add to previous draw Performed By: #### 4 6413, 39395, 42540, 35237, 48435 #### [facility] [address] [place] [address], [facility] NON-HDL CHOLESTEROL 102 mg/dL Normal [facility] Comment on above: Order Comment: No: D o not add to previous draw Performed By: #### 4 6413, 96734, 82291, 32374, 29715 #### [facility] [address] Triglyceride [Mass/Vol] 106 mg/dL Normal 40-149 [facility] Comment on above: Order Comment: No: D o not add to previous draw Result Comment: TRIG LYCERIDE REFERENCE RANGE: 20 YEARS AND OLDER CARDIOVASCULAR RISK LESS THAN 150 mg/dl LOW RISK 150 TO 199 mg/dl BORDERLINE RISK 200 mg/dl AND GREATER HIGH RISK Performed By: #### 4 6413, 78815, 93892, 03880, 06918 #### [facility] [address] VLDL CHOL 21 mg/dL Normal 0-40 [facility] Comment on above: Order Comment: No: D o not add to previous draw Performed By: #### 4 6413, 78493, 81050, 55149, 06364 #### [facility] [address] [facility] [address] MAGNESIUM BLOODon 12-15-2018 Magnesium [Mass/Vol] 1.9 mg/dL Normal 1.9-2.7 [facility] Comment on above: Order Comment: No: D o not add to previous draw Performed By: #### 4 6413, 87328, 88964, 33866, 43592 #### [facility] [address] [place] [address], [facility] PHOSPHORUS BLOODon 9 Phosphate [Mass/Vol] 4.5 mg/dL Normal 2.5-5.0 [facility] Comment on above: Order Comment: combi henry request Performed By: #### 4 6413, 43542, 28740, 85506, 87294 #### [address] PORTABLE CHEST 1 VIEWon 12-05 PORTABLE CHEST 1 VIEW [facility] Department of Radiology [address] [place] [id number] Patient Name: NEREIDA AGOSTO : 1940 Sex: F Age: Race: White Pt. Location: [address] [place] [address] Patient Status: I Ordered Date: 12/15/2018 2:10:00 PM Completed Date: 12/15/2018 02:48 PM Requesting Provider: STEPHY RODRIGUEZ Attending Provider: CHAPITO SHIPLEY Report Copy To: Signs & Symptoms: O2 Desaturation History: Patient history not available Comments: R/O CHF Exam: PORTABLE CHEST 1 VIEW PORTABLE CHEST 1 VIEW 12/15/2018 2:48 PM EDT SIGNS AND SYMPTOMS: O2 Desaturation TECHNOLOGIST COMMENTS: O2 desaturation, R/o CHF. QUESTION FOR THE RADIOLOGIST: R/O CHF PROTOCOL: AP(PA) view was obtained. COMPARISON: December 14, 2018 FINDINGS: Upper mediastinum unremarkable. Stable but severe cardiomegaly. Small left and small right pleural effusion. Bibasilar atelectasis. Changes in the lung bases stable when compared to previous exam IMPRESSION: Stable cardiomegaly Small bilateral pleural effusions and bibasilar atelectasis unchanged. Likely represents some underlying congestive heart failure Electronically signed by:Bharti Bazan. Transcribed by: [email or web address], User Resident: Electronically Signed by: BHARTI BAZAN @ 12/15/2018 03:50 PM Normal [facility] Comment on above: Order Comment: R/O C HF TSH3on 12-15-2018 TSH 3RD GENERATION 0.86 uIU/mL Normal 0.34-5.60 [facility] Comment on above: Performed By: #### 4 6413, 03102, 55189, 64505, 92822 #### [facility] [address] Vital Signs Date Time Vital Sign Value Performing Clinician Clemencia larry 02-02-2023 14:45-0400 Blood Pressure Location Rashi NILL [facility] [place] 02-02-2023 14:45-0400 Diastolic blood pressure 76 mm[Hg] Rashi NILL [facility] [place] 02-02-2023 14:45-0400 Heart rate 74 /min Rashi NILL [facility] [place] 02-02-2023 14:45-0400 Respiratory rate 16 /min Rashi NILL [facility] [place] 02-02-2023 14:45-0400 Systolic blood pressure 126 mm[Hg] Rashi NILL [facility] [place] Encounters Encounter Date Encounter Type Care Provider Facility Start: 08-05-2023 End: 08-05-2023 [facility] Start: 03-05-2023 End: 03-06-2023 ambulatory Rashi R ALVARO Facility:[facility] Start: 03-05-2023 End: 03-05-2023 Patient encounter procedure Rashi Lee NILL General Surgery Nill/Said [place] Start: 02-24-2023 End: 02-25-2023 ambulatory Rashi R JAXL Facility:CD:[id number] Start: 02-19-2023 End: 02-19-2023 [facility] Start: 02-02-2023 End: 02-03-2023 ambulatory Rashi JOHN Facility: [facility] Start: 02-02-2023 End: 02-02-2023 Patient encounter procedure Rashi JOHN General Surgery Nill/Said [place] Start: 01-21-[address] JACINTO SERVIN . Facili ty:[facility] Start: 01-20-2023 ambulatory Rashi JOHN Facility :[facility] Start: 01-19-2023 End: 01-19-[address] JACINTO SERVIN . Facility: Start: 01-18-2023 End: 01-19-[address] JACINTO SERVIN . Facility: Start: 01-20-2022 End: 01-21-[address] JACINTO SERVIN . Facility: Start: 12-23-2018 End: 12-24-2018 Patient encounter procedure GOLDIE WALDROP Facility:[facility] Start: 12-15-2018 End: 12-16-2018 Evaluation and management of inpatient PETER LEE Facility:[facility] Procedures Date Procedure Procedure Detail Performing Clinician Start: 02-24-2023 Colonoscopy Rashi CORRIGAN Start: 12-15-2018 FLUOROSCOPY OF MULTI PLE CORONARY ARTERIES USING OTH CONTRAST JJ CANO Start: 12-15-2018 MEASURE CARDIAC SAMP L \T\ PRESSURE, BILATERAL, PERC JJ CANO Start: 12-15-2018 MEASUREMENT OF ARTER IAL FLOW, PULMONARY, PERC APPROACH JJ CANO Closed fracture of h ip (disorder) Rashi JOHN Ligation of fallopian tube M emelina ALVARO Immunizations Immunization Date Immunization Notes Care Provider Rusty morales 07-21-2022 influenza virus vaccine, unspecified formulation Rashi JOHN [facility] [place] 08-28-2021 SARS-CoV-2 (COVID-19 ) mRNA1278 vaccine Rashi JOHN [facility] [place] 11-14-2020 SARS-CoV-2 (COVID-19 ) mRNA-1273 vaccine Rashi JOHN [facility] [place] 10-18-2020 SARS-CoV-2 (COVID-19 ) mRNA-1273 vaccine Rashi JOHN [facility] [place] Payers Date Payer Category Payer [employer] ( [employer] others) [id number] 2018 Medicare [id number] 1959 [employer] ( [employer] others) [id number] 1957 Medicare [id number] 1940 Unknown [id number] 1940 Unknown [id number] [id number] 1940 Unknown [id number] 1940 Unknown [id number] [id number] 1940 Unknown [id number] [id number] 1940 Unknown [id number] [id number] 1940 Unknown [id number] [id number] 1940 Unknown [id number] [id number] 1940 Unknown [id number] [id number] 1940 Unknown [id number] [id number] 1940 Unknown [id number] [id number] Social History Date Type Detail Facility Start: 02-02-2023 Tobacco smoking status Ex-smoker (fi darianing) [facility] Tobacco smoking status Never [facility] [place] Sex Assigned At Female [facility] Functional Status Date Assessment Result Facility 02-02-2023 Functional Status N/A [facility] 08-05-2023 Note Date & Type Note Facility 08-05-2023 Note Patient here for 6 m o follow up PAF, hypertension, and recovered Takotsubo cardiomyopathy. She had echo and ECG a few weeks ago. Carvedilol was increased to 12.5mg bid at last apt in February 2023. Has some hematuria but just had procedure last week for this. Denies chest pain. Gets palpitations sometimes . Review of Systems Cardiovascular: Positive for dyspnea on exertion and palpitations ( sometimes ). Genitourinary: Positive for hematuria. Neurological: Positive for light-headedness. All other systems reviewed and are negative. [facility] Progress note 08-05-2023 Note Date & Type Note Facility 08-05-2023 Note Cardiology Clinic No te Subjective Nereida Agosto is a 83 y.o. year old female patient with paroxysmal atrial fibrillation maintained on Eliquis, hypertension, and Takotsubo cardiomyopathy. Patient Active Problem List Diagnosis Hypothyroidism Paroxysmal atrial fibrillation (CMS/HCC) Takotsubo cardiomyopathy Essential hypertension Aortic valve regurgitation BMI 30.0-30.9,adult Congestive heart failure (CMS/HCC) Left atrial enlargement Lower extremity edema LVH (left ventricular hypertrophy) Osteoporosis Positive fecal occult blood test Tubulovillous adenoma of colon Family History Problem Relation Name Age of Onset No Known Problems Mother No Known Problems Father Social History Tobacco Use Smoking status: Former Types: Cigarettes Smokeless tobacco: Never Substance Use Topics Alcohol use: Yes Comment: occasional HPI Patient here for 1 year follow up Takotsubo cardiomyopathy and PAF. Doing very well from cardiac standpoint. Denies chest pain, SOB, palpitations, and bleeding on Eliquis. Had labs in January 2022. Update: 02/19/2023 Had been doing well She was found to have blood in the stool and is recommended a colonoscopy She is in A-fib. With rate in the low 100s She is taking her carvedilol once daily Her amlodipine was discontinued Update: 08/05/2023 Seen in routine follow-up, had colonoscopy yesterday Had an echocardiogram prior to her colonoscopy She has been doing well denies chest pain significant dyspnea or lower extremity edema Review of Systems Cardiovascular: Negative for chest pain, claudication, dyspnea on exertion, irregular heartbeat, leg swelling, near-syncope, orthopnea, palpitations, paroxysmal nocturnal dyspnea and syncope. Objective Visit Vitals BP 108/68 (BP Location: Left arm, Patient Position: Sitting) Pulse 90 Ht 1.499 m (4' 11 ) Wt 68.5 kg (151 lb) SpO2 97% BMI 30.50 kg/m??? Smoking Status Former BSA 1.69 m??? Physical Exam General: Awake, alert, good spirits. NAD Pulm: Breath sounds clear to ascultation bilaterally with no wheeze, crackles or rhonchi Cards: Irregularly irregular, S1, S2. No S3 or S4 gallop. Murmur: none Abd: Soft, Nontender, physiologic bowel sounds are present Extr: Lower extremity edema: None. Skin: warm, dry, well perfused Neuro: A&Ox3, No gross deficits Allergies Allergies Allergen Reactions Sulfa (Sulfonamide Antibiotics) Medications Current Outpatient Medications: alendronate (Fosamax) 70 mg tablet, , Disp: , Rfl: apixaban (Eliquis) 5 mg tablet, Take 1 tablet by mouth in the morning and at bedtime., Disp: , Rfl: calcium 500 mg calcium (1,250 mg) tablet, Take 1 tablet by mouth in the morning., Disp: , Rfl: carvedilol (Coreg) 12.5 mg tablet, Take 1 tablet by mouth in the morning and at bedtime., Disp: , Rfl: cholecalciferol (Vitamin D-3) 25 MCG (1000 UT) capsule, Take 1,000 Units by mouth in the morning., Disp: , Rfl: furosemide (Lasix) 20 mg tablet, Take 1 tablet by mouth in the morning., Disp: , Rfl: levothyroxine (Synthroid, Levoxyl) 50 mcg tablet, Take 1 tablet every day by oral route for 30 days., Disp: , Rfl: lisinopril 20 mg tablet, Take 1 tablet (20 mg) by mouth in the morning., Disp: 90 tablet, Rfl: 3 meclizine (Antivert) 25 mg tablet, Take 25 mg by mouth if needed., Disp: , Rfl: ferrous sulfate 325 (65 Fe) MG tablet, Take 1 tablet every other day by oral route., Disp: , Rfl: spironolactone (Aldactone) 25 mg tablet, Take 0.5 tablets (12.5 mg) by mouth in the morning., Disp: 90 tablet, Rfl: 3 Recent Labs 01/18/2023 WBC 5.1, hemoglobin 12.6, hematocrit 39.7, platelets 163 Sodium 144, potassium 4.6, chloride 106, BUN 18, serum creatinine 0.95, estimated GFR 57% Imaging and other tests Echocardiogram: 07/12/2023 Global left ventricular systolic function is mildly reduced; visually estimated ejection fraction is 45 to 50% Biatrial enlargement The right ventricle is normal in size and systolic function Mild to moderate mitral regurgitation Pulmonary function tests 05/16/2021 Impressions: Spirometry trends towards moderate obstruction with normal lung volumes and mild diffusion impairment, suggesting underlying COPD/emphysema. When compared to prior pulmonary function tests, there is improvement in lung volumes and diffusion capacity. Clinical correlation required. ECHO 01/20/2021 Normal LV systolic function Moderate mitral regurg Moderately to severely dilated LA Normal right sided pressures JEANNA (12/16/2018) Global left ventricular systolic function is severely reduced (Visually estimated EF 30-35%). Segmental wall motion abnormalities. Right ventricular systolic function appears reduced. The right ventricle is enlarged. The left atrium is moderately enlarged. No thrombus in left atrium. The right atrium appears enlarged. Mild aortic valve regurgitation. Mild atherosclerotic plaque is seen in the aorta. - Succes (more content not included)... [facility] Progress note 02-19-2023 Note Date & Type Note Facility 02-19-2023 Note Cardiology Clinic No te Subjective Nereida Agosto is a 82 y.o. year old female patient with paroxysmal atrial fibrillation maintained on Eliquis, hypertension, and Takotsubo cardiomyopathy. Patient Active Problem List Diagnosis Hypothyroidism Paroxysmal atrial fibrillation (CMS/HCC) Takotsubo cardiomyopathy Essential hypertension Family History Problem Relation Name Age of Onset No Known Problems Mother No Known Problems Father Social History Tobacco Use Smoking status: Former Types: Cigarettes Smokeless tobacco: Never Substance Use Topics Alcohol use: Yes Comment: occasional HPI Patient here for 1 year follow up Takotsubo cardiomyopathy and PAF. Doing very well from cardiac standpoint. Denies chest pain, SOB, palpitations, and bleeding on Eliquis. Had labs in January 2022. Update: 02/19/2023 Had been doing well She was found to have blood in the stool and is recommended a colonoscopy She is in A-fib. With rate in the low 100s She is taking her carvedilol once daily Her amlodipine was discontinued ROS Objective Visit Vitals BP 126/83 (BP Location: Left arm, Patient Position: Sitting, BP Cuff Size: Adult) Pulse 101 Wt 66.9 kg (147 lb 6.4 oz) SpO2 97% BMI 29.77 kg/m??? Smoking Status Former BSA 1.67 m??? Physical Exam General: Awake, alert, good spirits. NAD Pulm: Breath sounds clear to ascultation bilaterally with no wheeze, crackles or rhonchi Cards: Irregularly irregular, S1, S2. No S3 or S4 gallop. Murmur: none Abd: Soft, Nontender, physiologic bowel sounds are present Extr: Lower extremity edema: None. Skin: warm, dry, well perfused Neuro: A&Ox3, No gross deficits Allergies Allergies Allergen Reactions Sulfa (Sulfonamide Antibiotics) Medications Current Outpatient Medications: apixaban (Eliquis) 5 mg tablet, Take 1 tablet by mouth in the morning and at bedtime., Disp: , Rfl: carvedilol (Coreg) 12.5 mg tablet, Take 1 tablet by mouth in the morning and at bedtime., Disp: , Rfl: furosemide (Lasix) 20 mg tablet, Take 1 tablet by mouth in the morning., Disp: , Rfl: levothyroxine (Synthroid, Levoxyl) 50 mcg tablet, Take 1 tablet every day by oral route for 30 days., Disp: , Rfl: lisinopril 20 mg tablet, Take 1 tablet (20 mg) by mouth in the morning., Disp: 90 tablet, Rfl: 3 meclizine (Antivert) 25 mg tablet, Take 25 mg by mouth in the morning., Disp: , Rfl: potassium chloride CR (Klor-Con M20) 20 mEq ER tablet, TAKE 1 TABLET IN THE MORNING, Disp: 90 tablet, Rfl: 3 ferrous sulfate 325 (65 Fe) MG tablet, Take 1 tablet every other day by oral route., Disp: , Rfl: Recent Labs 01/18/2023 WBC 5.1, hemoglobin 12.6, hematocrit 39.7, platelets 163 Sodium 144, potassium 4.6, chloride 106, BUN 18, serum creatinine 0.95, estimated GFR 57% Imaging and other tests Pulmonary function tests 05/16/2021 Impressions: Spirometry trends towards moderate obstruction with normal lung volumes and mild diffusion impairment, suggesting underlying COPD/emphysema. When compared to prior pulmonary function tests, there is improvement in lung volumes and diffusion capacity. Clinical correlation required. ECHO 01/20/2021 Normal LV systolic function Moderate mitral regurg Moderately to severely dilated LA Normal right sided pressures JEANNA (12/16/2018) Global left ventricular systolic function is severely reduced (Visually estimated EF 30-35%). Segmental wall motion abnormalities. Right ventricular systolic function appears reduced. The right ventricle is enlarged. The left atrium is moderately enlarged. No thrombus in left atrium. The right atrium appears enlarged. Mild aortic valve regurgitation. Mild atherosclerotic plaque is seen in the aorta. - Successful cardioversion performed with 360 Joules of biphasic energy. Patient remained in normal sinus rhythm with PACs after cardioversion. Assessment Diagnoses and all orders for this visit: Encounter for pre-operative cardiovascular clearance Essential hypertension Takotsubo cardiomyopathy Paroxysmal atrial fibrillation (CMS/HCC) Plan 1. Encounter for preoperative cardiac risk stratification -Recovered cardiomyopathy, stable without clinical evidence of heart failure. We will increase her carvedilol to 12.5 mg twice daily for better rate control. Okay to hold Eliquis for 2 days prior to colonoscopy. Low risk procedure, no further cardiac work-up is indicated. 2. Paroxysmal atrial fibrillation -Maintained on Eliquis for 5 mg twice daily, tolerating without major bleeding. Increase carvedilol as noted for better rate control. She has low symptom burden, will continue with rate control strategy. 3. Takotsubo cardiomyopathy -Recovered, continue carvedilol 12.5 mg twice daily, lisinopril 20 mg daily, and Lasix 20 mg daily. 4. Hypertension -Well-controlled, continue current medication regimen. Follow up in about 6 months (around 08/21/2023). Flaquito Rojas (more content not included)... [facility] Clinical Note 02-02-2023 Note Date & Type Note Facility 02-02-2023 Note Chief Complaint consultation for positive occult stool HPI Staff 82 year old female presents on consultation from Dr. Servin for positive occult stool. Denies abdominal or rectal pain. No rectal bleeding or change in bowel habits. Denies nausea or vomiting. No unexplained weight loss. Last colonoscopy completed greater than 30 years ago; reported normal per patient. No known family history of colon cancer. History of Present Illness 82 yo female with h/o atrial fibrillation, on Eliquis, aortic regurgitation, CHF, cardiomyopathy, htn, hypothyroidism, osteoporosis, referred for positive fecal occult blood; patient denies change in bms or blood in stools, no abd complaints; no h/o ulcer disease or GERD; last colonoscopy over 30 years ago, only abd operation tubal ligation; no asa or NSAID use; on Eliquis daily; no fmhx of GI malignancy or IBD; no tobacco use. Review of Systems PHQ Score Initial Depression Screen Score: 0 ROS - Provider Constitutional: no fever, no sweats, no weight loss. Eyes: no glasses, no blurred vision, no visual loss. ENMT: no dentures, no hoarseness, no swallowing difficulties, no hearing loss, no ear infection(s), no nose bleeds. Cardiovascular: normal blood pressure, no chest pain, regular heartbeat, no heart murmur. Respiratory: no shortness of breath, no cough, no asthma, no wheezing. Gastrointestinal: no nausea, no vomiting, no diarrhea, no constipation, no blood in stool, no change in bowel habits, no abdominal pain, no hepatitis. Genitourinary: no kidney stones, no urine infection, no dysuria. Musculoskeletal: no pain, no weakness. Skin: no changing moles, no rash, no skin lumps. Neurologic: no seizures, no epilepsy, no headache. Psychiatric: no emotional or psychiatric problem. Heme/Lymph: no bleeding problems, no anemia, no blood clots, no transfusions. Allergy/Immunologic: no swollen lymph nodes/glands, no IV drug abuse. Other: Additional ROS info: Except as noted in the above Review of Systems and in the History of Present Illness, all other systems have been reviewed and are negative or noncontributory. Physical Exam Vitals & Measurements HR: 74(Peripheral) RR: 16 BP: 126/76 HT: 58 in HT: 147.3 cm WT: 65.7 kg WT: 144.54 lb BMI: 30.28 HEENT: normal conjunctiva, sclera clear, no scleral icterus, EOM intact, PERRLA, oral mucosa moist without lesions. Neck: trachea midline, no mass, symmetric, no thyromegaly or nodules, no adenopathy Respiratory: lungs CTA, respirations non labored. Cardiovascular: regular rate and rhythm, no murmur, no pedal edema or varicosities. Gastrointestinal: soft, non distended, no tenderness, no masses, no palpable hernias, diastasis recti no, no hepatosplenomegaly; normal bs Lymphatic: no cervical adenopathy, nosupraclavicular adenopathy. Musculoskeletal: normal gait, digits and nails without infection, nodes, cyanosis, clubbing. Skin: no rashes, no lesions, no ulcers, no subcutaneous nodules, induration. Psychiatric/Neuro: oriented to time, place, person, judgement normal, affect appropriate for age, insight intact, no focal deficits. Tests: labs reviewed, review of old records completed, Discussed surgical options, risks, and possible complications with patient. Assessment/Plan 1. Positive fecal occult blood test (R19.5: Other fecal abnormalities) plan colonoscopy under anesthesia for further evaluation, informed consent obtained; hold Eliquis 2 days prior to OR. Follow-up No qualifying data available Problem List/Past Medical History Ongoing A-fib Aortic valve regurgitation BMI 30.0-30.9,adult Cardiomyopathy Congestive heart failure HTN (hypertension) Hypothyroidism Left atrial enlargement Lower extremity edema LVH (left ventricular hypertrophy) Osteoporosis Positive fecal occult blood test Historical No qualifying data Procedure/Surgical History Closed fracture of hip, Tubal ligation. Medications alendronate 70 mg Tab, 70 mg= 1 tab(s), Oral, qWeek carvedilol 12.5 mg Tab, 12.5 mg= 1 tab(s), Oral, BID Eliquis 5 mg oral tablet, 5 mg= 1 tab(s), Oral, BID ferrous sulfate 325 mg Tab, 325 mg= 1 tab(s), Oral, BID furosemide 20 mg Tab, 20 mg= 1 tab(s), Oral, Daily lisinopril 20 mg Tab, 20 mg= 1 tab(s), Oral, Daily meclizine 25 mg Tab, 25 mg= 1 tab(s), Oral, BID potassium chloride 20 mEq ER Tab, 20 mEq= 1 tab(s), Oral, Daily Synthroid 50 mcg Tab, 50 mcg= 1 tab(s), Oral, Daily Allergies sulfa drugs (Unknown) Social History Alcohol - Denies Alcohol Use, 02/02/2023 Substance Abuse - Denies Substance Abuse, 02/02/2023 Tobacco Former smoker, quit more than 30 days ago Tobacco Use:. Never Smokeless Tobacco Use:. Cigarettes, 2 per day. Started age 23.0 Years. Stopped age 42 Years., 02/02/2023 Family History Asthma: Mother. Renal cell carcinoma: Brother. Immunizations Vaccine Date Status influenza virus vaccine, inactivated 07/21/2022 Recorded SARS-CoV-2 (COVID-19) mRNA-1273 vaccine 08/28/2021 Recor (more content not included)... [facility] Comment on above: Result Comment: Elec tronically Signed By: ALVARO AHMADI, Rashi Weaver\Date and Time Signed: 02/02/23 15:35 EDT Evaluation + Plan note Note Date & Type Note Facility Evaluation + Plan note No data available for this section [facility] Discharge instructions Note Date & Type Note Facility Hospital Discharge instructions No data available for this section General Surgery [facility] Progress note Note Date & Type Note Facility Progress note No data available for this section [facility] Summary Purpose Family History No Family History Records FoundNo Family History Records FoundNo Family History Records FoundNo Family History Records FoundNo Family History Records Found Advance Directives No Advanced Directives Records FoundNo Advanced Directives Records FoundNo Advanced Directives Records FoundNo Advanced Directives Records FoundNo Advanced Directives Records Found Hospital Course Note MR#: [id number] [facility] Pt. Name: Nereida Agosto Admitted: 12/15/2018 Discharged: 12/16/2018 Date of : 1940 Physician: Chapito Shipley MD DISCHARGE SUMMARY PRIMARY DIAGNOSES: 1. Stress-related cardiomyopathy. 2. New onset atrial fibrillation with rapid ventricular response. SECONDARY DIAGNOSIS: Essential hypertension. HISTORY OF PRESENT ILLNESS AND HOSPITALIZATION COURSE: The patient is a 78-year-old female with past medical history significant for hypertension. She was evaluated initially by her primary care physician for progressive dyspnea on exertion and cough. It was thought this is due to viral bronchitis. Her symptoms were not resolving and she had a short course of antibiotics and steroids by the primary care doctor and she was sent to the ER. Apparently in [facility], the patient was found to have decompensated heart failure with new onset of atrial fibrillation. She was in rapid ventricular response. The patient was admitt (more content not included)... Additional Source Comments INFORMATION SOURCE (unrecogn ized section and content) DATE CREATED AUTHOR 04/29/2019 [facility] DATE CREATED AUTHOR AUTHOR'S ORGANIZ ATION 01/19/2023 [facility] DATE CREATED AUTHOR AUTHOR'S ORGANIZ ATION 03/06/2023 [facility] DATE CREATED AUTHOR AUTHOR'S ORGANIZ ATION 08/07/2023 [facility] DATE CREATED AUTHOR AUTHOR'S ORGANIZ ATION 08/08/2023 [facility] EPIC Patient Care team informatio n (unrecognized section and content) Personnel Name: Jacinto Servin MD Address: Address: [address] [place] [address] Personnel Name: Jacinto Servin MD Address: Address: [address] [place] [address] FOR RECORDS PERTAINING TO PATIENTS WHO ARE OR HAVE BEEN ENROLLED IN A CHEMICAL DEPENDENCY/SUBSTANCEABUSE PROGRAM, SOME INFORMATION MAY BE OMITTED. This clinical summary was aggregated from multiple sources. Caution should be exercised in using it in the provision of clinical care. This summary normalizes information from multiple sources, and as a consequence, information in this document may materially change the coding, format and clinical context of patient data. In addition, data may be omitted in some cases. CLINICAL DECISIONS SHOULD BE BASED ON THE PRIMARY CLINICAL RECORDS. [employer] provides no warranty or guarantee of the accuracy or completeness of information in this document.
[2023-10-28 10:47] LABS: Anion Gap 10.7; BUN Creatinine Ratio 17.6; Calcium 9.5 mg/dL (8.5-10.1); Carbon Dioxide 34.4 mmol/L (21.0-32.0); Chloride 106 mmol/L (98-107); Estimated GFR (African America >60 (>=60); Estimated GFR (Non-African Ame 52 (>=60); Glucose 92 mg/dL (74-106); Potassium 4.1 mmol/L (3.5-5.1); Sodium 147 mmol/L (136-145)
== END 2023-10-28 10:06 | disposition home or self-care (01) ==
LOC: LAB 10:07
PROVIDERS: PCP Family Medicine; Visit Provider Nurse Practitioner Acute Care
DX: I50.22 Chronic systolic (congestive) heart failure (principal)
CPT/HCPCS: 36415; 80048

== ENCOUNTER 2023-11-17 09:54 | Outpatient (OUT) | payer MEDICARE, OTHER, SELFPAY ==
--- NOTE | 2023-11-17 10:00 | CA_ITS ---
Patient Name: JOI DUNCAN MR#: [id number] : 1940 Exam Date: 11/17/2023 Ordering Doctor: KHANG HOPSNO CNP ECHOCARDIOGRAM REPORT PROCEDURE: CA ECHO LIMITED INDICATIONS: Chronic systolic heart failure, atrial fibrillation, hypertension COMPARISON: None. DESCRIPTION: Limited ECHOCARDIOGRAM Real-time transthoracic echocardiography with 2D and M-mode performed. QUALITY: Technical quality was good. 59 , 150#, BSA 1.63 m2 Limited echocardiogram per physician order. LEFT VENTRICLE: Normal chamber size. Proximal septal hypertrophy (sigmoid septum). LV EF: Global left ventricular systolic function is normal; visually estimated ejection fraction is 55 to 60%. No significant wall motion abnormalities. LEFT ATRIUM: Moderate dilatation. RIGHT ATRIUM: Mild dilatation. RIGHT VENTRICLE: Normal chamber size. TRICUSPID VALVE: Normal mobility and thickness. MITRAL VALVE: Normal mobility and thickness. AORTIC VALVE: Normal trileaflet appearance. Normal leaflet mobility. Multifocal calcifications. AORTIC ROOT: Normal diameter and appearance. PULMONIC VALVE: Not well visualized. PERICARDIUM: No evidence of pericardial effusion. IVC: Collapses with inspirations. IVC is normal in size. CONCLUSION: 1. Global left ventricular systolic function is normal; visually estimated ejection fraction is 55 to 60% 2. Normal right ventricular size and systolic function 3. Biatrial enlargement A limited echocardiogram was performed Adult Echocardiography Procedure Report Left Ventricle LVEDD (3.7 - 5.6 cm): 4.00 cm LVESD (2.2 - 4.0 cm): 2.98 cm LVIVS thickness (0.6 - 1.2 cm): 1.28 cm LVPW thickness (0.5 - 1.0 cm): 0.94 cm LVOT Diameter 2.01 cm Left Atrium LA Volume Index (2D A2C): 35.99 ml/m2 Left Atrium Systolic Dimension: 3.88 cm Mitral Valve Right Ventricle RV Internal Diastolic Dimension: 2.80 cm Aorta AO Root Diam: 3.32 cm Ascending Ao Diam: 3.42 cm Aortic Valve Tricuspid Valve Pulmonic Valve Right Atrium Right Atrium Systolic Pressure: 50.20 ml, 50.20 ml Dictated by: Goldie Vaughan M.D. on 11/18/2023 at 09:25 Approved by: Goldie Vaughan M.D. on 11/18/2023 at 09:28
--- OUTSIDE RECORDS SUMMARY | 2023-11-17 10:14 | XMS_ITS | CCD ---
Author Name Unknown Address [address] [place] [address] [address] [place] [address] Organization [facility] Care Team Providers Care Hammerer Tab Name Role Phone PETER LEE Referring Unavailable JACINTO SERVIN Primary Care Unavailable CHAPITO SHIPLEY Attending Unavailable CHAPITO SHIPLEY Admitting Unavailable MA Procedure Practitioner UnavailJJ Sheldon Surgeon Unavailable ELTAHAWY, EHAB A Admitting Unavailable PALMA, EHAB A Attending Unavailable JACINTO SERVIN Referring Unavailable JACINTO SERVIN Primary Care Unavailable NATASHA ., DR CASEY Admitting Unavailable HOY ., DR CASEY Primary Care Unavailable HOY ., DR CASEY Consulting Unavailable HOY ., DR CASEY Attending Unavailable HOY ., DR CASEY Admitting Unavailable HOY ., DR CASEY Primary Care Unavailable HOY ., DR CASEY Consulting Unavailable HOY ., DR CASEY Attending Unavailable [place], DR KELSI Aguirre Consulting Unavailable ZIEBER, DR DUDLEY Lee Consulting Unavailable HOY ., DR CASEY Admitting Unavailable HOY ., DR CASEY Primary Care Unavailable HOY ., DR CASEY Attending Unavailable HOY ., DR CASEY Admitting Unavailable HOY ., DR CASEY Primary Care Unavailable HOY ., DR CASEY Consulting Unavailable NATASHA ., DR CASEY Attending Unavailable Jacinto Servin Primary Care Physician Rashi JOHN Attending Unavailable Jacinto Servin Referring Unavailable NILLRashi Attending Unavailable Jacinto Servin Referring Unavailable Rashi JOHN Attending Unavailable NILRashi Jones Attending Unavailable ROD AGUAYO Attending Unavailable FLAQUITO BALLARD Attending Unavailable KHANG HOPSON Attending Unavailable FLAQUITO BALLARD Attending Unavailable Allergies Allergy Classification Reported Allergen(s) Allergy Type Date of Onset Reaction(s) Facility (3 sources) Sulfonamides (Antibiotic); Translations: [sulfa drugs] Drug allergy Unknown (qualifier value) General Surgery [place] (1 source) ALPRAZolam; Translations: [Xanax] Drug Allergy [facility] Repository (1 source) Sulfonamides (Antibiotic); Translations: [SULFA (SULFONAMIDE ANTIBIOTICS)] Propensity to adverse reactions to drug (disorder) 2 [facility] Repository Medications Current Medications Medication Drug Class(es) [...] Value Interpretation Reference Range Facility Office Visiton 10-28-2023 Follow-up visit [id number] Nereida Agosto 1940 Date Provider Department Center 10/28/2023 KHANG SALEH KIM [facility] Family History Problem Relation Age of Onset No Known Problems Mother No Known Problems Father Family Status - Relation Status Age at Mother Father Level of Service:95424 MA OFFICE/OUTPATIENT ESTABLISHED MOD MDM 30 MIN Reason for Visit and Comments: Congestive Heart Failure [127] Dizziness [598706] Normal [facility] Office Visiton 08-05-2023 Follow-up visit [id number] Nereida Agosto 1940 Date Provider Department Center 08/05/2023 [id number] MAN KIM [facility] Family History Problem Relation Age of Onset No Known Problems Mother No Known Problems Father Family Status - Relation Status Age at Mother Father Level of Service:53482 MA OFFICE/OUTPATIENT ESTABLISHED MOD MDM 30-39 MIN Normal [facility] Ambulatory Visit Summaryon 0 03-05-2023 Ambulatory Visit Summary NEREIDA AGOSTO :1940 Visit Date:03/05/2023 Ambulatory Visit Instructions Your Care Team Attending Physician - Rashi [...] Osteoporosis Positive fecal occult blood test Normal [facility] General Surgery Office/Clini c Noteon 03-05-2023 General [...] SARS-CoV-2 (COVID-19) mRNA-1273 vaccine 10/18/2020 Recorded Normal [facility] Comment on above: Result Comment: Elec tronically Signed By: ALVARO AHMADI, Rashi Weaver\Date and Time Signed: 03/05/23 15:50 EDT Reminderson 03-05-2023 Reminders - From: Alisha Maldonado LPN To: [facility] - Clinical; Sent: 03/05/2023 15:36:30 EDT Show up: 01/25/2024 07:00:00 EDT Subject: colonoscopy recall Due Date/Time: 02/25/2024 07:00:00 EDT Reminder/Recall Patient due for surveillance colonoscopy 02/25/2024. [facility] Pathology Noteon 03-01-2023 Pathology Note [id number] #1.00CD:127 [facility] Outside Colonoscopyon 2022 Outside Colonoscopy [id number]# 1.00CD:127 [facility] Formson 02-22-2023 Forms [id number] #1.00CD:127 [facility] Office Visiton 02-19-2023 Follow-up visit [id number] Nereida Agosto 1940 F Date Provider Department Center 02/19/2023 [id number] BALLARD CARD [facility] Family History Problem Relation Age of Onset No Known Problems Mother No Known Problems Father Family Status - Relation Status Age at Mother Father Level of Service:27658 MA OFFICE/OUTPATIENT ESTABLISHED MOD MDM 30-39 MIN Reason for Visit and Comments: Follow-up [627979] - Pt is here for sx clearance scheduled for echo 02/17 [facility] Consent for Procedure/Surger yon 02-05-2023 Consent for Procedure/Surgery [id number] #1.00CD:127 [facility] Facesheeton 02-03-2023 Facesheet [id number] #1.00CD:127 [facility] Ambulatory Visit Summaryon 0 02-02-2023 Ambulatory Visit Summary NEREIDA AGOSTO :1940 Visit Date:02/02/2023 Ambulatory Visit Instructions Your Diagnosis Positive fecal occult blood test Your Care Team Attending Physician - ALVARO [...] Osteoporosis Positive fecal occult blood test Normal [facility] Physician Referralon 023 Physician Referral [id number] #1.00CD:127 Normal [facility] OCC BLD IMMUNO SCREENon 01-04 OCCULT BLOOD Positive Abnormal NEGATIVE [facility] Comment on above: Performed By: #### O BSCRN #### [facility] [address] [place] [address] Dr. Dinah Rodriges CBC AUTO DIFFon 01-18-2023 BASO # 0.0 103/ul Normal 0.0-0.1 [facility] Comment on above: Performed By: #### C BC #### [facility] [address] [place] [address] Dr. Dinah Rodriges Basophils/100 WBC (Bld) 0.6 % Normal 0.2-2.0 [facility] Comment on above: Performed By: #### C BC #### [facility] [address] [place] [address] Dr. Dinah Rodriges EO # 0.1 103/ul Normal 0.0-0.7 [facility] Comment on above: Performed By: #### C BC #### [facility] [address] [place] [address] Dr. Dinah Rodriges Eosinophils/100 WBC (Bld) 1.8 % Normal 0.9-7.0 [facility] Comment on above: Performed By: #### C BC #### [facility] [address] [place] [address] Dr. Dinah Rodriges Erythrocyte distribution width (RBC) [Ratio] 12.7 % Normal 11.0-15.0 [facility] Comment on above: Performed By: #### C BC #### [facility] [address] [place] [address] Dr. Dinah Rodriges Hematocrit (Bld) [Volume fraction] 39.7 % Normal 36.0-48.0 [facility] Comment on above: Performed By: #### C BC #### [facility] [address] [place] [address] Dr. Dinah Rodriges Hemoglobin (Bld) [Mass/Vol] 12.6 g/dL Normal 12.0-16.0 [facility] Comment on above: Performed By: #### C BC #### [facility] [address] [place] [address] Dr. Dinah Rodriges IG # 0.01 10e3/ul Normal 0.00-0.03 [facility] Comment on above: Performed By: #### C BC #### [facility] [address] [place] [address] Dr. Dinah Rodriges IG % 0.2 % Normal 0.0-0.5 [facility] Comment on above: Performed By: #### C BC #### [facility] [address] [place] [address] Dr. Dinah Rodriges LYMPH # 1.5 103/ul Normal 1.2-3.8 [facility] Comment on above: Performed By: #### C BC #### [facility] [address] [place] [address] Dr. Dinah Rodriges Lymphocytes/100 WBC (Bld) 28.7 % Normal 20.5-60.0 [facility] Comment on above: Performed By: #### C BC #### [facility] [address] [place] [address] Dr. Dinah Rodriges MANUAL DIFF REQ NO Normal [facility] Comment on above: Performed By: #### C BC #### [facility] [address] [place] [address] Dr. Dinah Rodriges MCH (RBC) [Entitic mass] 30.7 pg Normal 26.7-34.0 [facility] Comment on above: Performed By: #### C BC #### [facility] [address] [place] [address] Dr. Dinah Rodriges MCHC (RBC) [Mass/Vol] 31.7 g/dL Normal 29.9-35.2 [facility] Comment on above: Performed By: #### C BC #### [facility] [address] [place] [address] Dr. Dinah Rodriges MCV (RBC) [Entitic vol] 96.8 fL Normal 81.0-99.0 [facility] Comment on above: Performed By: #### C BC #### [facility] [address] [place] [address] Dr. Dinah Rodriges MONO # 0.4 103/ul Normal 0.3-0.8 [facility] Comment on above: Performed By: #### C BC #### [facility] [address] [place] [address] Dr. Dinah Rodriges Monocytes/100 WBC (Bld) 7.3 % Normal 1.7-12.0 [facility] Comment on above: Performed By: #### C BC #### [facility] [address] [place] [address] Dr. Dinah Rodriges NEUT # 3.1 103/ul Normal 1.4-6.5 [facility] Comment on above: Performed By: #### C BC #### [facility] [address] [place] [address] Dr. Dinah Rodriges Neutrophils/100 WBC (Bld) 61.4 % Normal 43.0-75.0 [facility] Comment on above: Performed By: #### C BC #### [facility] [address] [place] [address] Dr. Dinah Rodriges Platelet mean volume (Bld) [Entitic vol] 9.7 fL Normal 9.5-13.5 [facility] Comment on above: Performed By: #### C BC #### [facility] [address] [place] [address] Dr. Dinah Rodriges PLT 163 103/ul Normal 150-450 [facility] Comment on above: Performed By: #### C BC #### [facility] [address] [place] [address] Dr. Dinah Rodriges RBC 4.10 106/ul Critically low 4.20-5.40 [facility] Comment on above: Performed By: #### C BC #### [facility] [address] [place] [address] Dr. Dinah oRdriges WBC 5.1 103/ul Normal 4.0-11.0 [facility] Comment on above: Performed By: #### C BC #### [facility] [address] [place] [address] Dr. Dinah Rodriges FREE T3on 05-15-2023 FREE T3 2.11 pg/mlL Critically low 2.18-3.98 [facility] Comment on above: Performed By: #### C MP, TSH, T4, LIPID, FT3 #### [facility] [address] [address] [address] Dinah Rodriges GLYCOHEMOGLOBIN A1Con 2022 ADA RECOMMENDATION SEE BELOW Normal [facility] Comment on above: Result Comment: ADA RECOMMENDED LIMIT 4.0 - 6.0 ADA THERAPEUTIC TARGET < 7.0 ACTION SUGGESTED > 7.0 Performed By: #### A 1C ####[facility] [id number] [address]Dr. Dinah Rodriges Glucose [Mass/Vol] 105 mg/dL Normal [facility] Comment on above: Performed By: #### A 1C ####[facility] [id number] [address]Dr. Dinah Rodriges HbA1c (Bld) [Mass fraction] 5.3 % Normal 4.5-6.2 [facility] Comment on above: Performed By: #### A 1C ####[facility] [id number] [address]Dr. Dinah Rodriges LIPID PROFILEon 01-18-2023 CHOL-HDL RATIO NORM SEE BELOW Normal [facility] Comment on above: Result Comment: 3.3 - 4.4 LOW RISK 4.4 - 7.1 AVERAGE RISK 7.1 - 11.0 MODERATE RISK >11.0 HIGH RISK Performed By: #### C MP, TSH, T4, LIPID, FT3 #### [facility] [address] [address] [address] Dinah Rodriges Cholesterol [Mass/Vol] 168 mg/dL Normal <=200 [facility] Comment on above: Performed By: #### C MP, TSH, T4, LIPID, FT3 #### [facility] [address] [address] [address] Dinah Rodriges Cholesterol in HDL [Mass/Vol] 61 mg/dL Critically high 40-60 [facility] Comment on above: Performed By: #### C MP, TSH, T4, LIPID, FT3 #### [facility] [address] [address] [address] Dinah Rodriges Cholesterol in LDL [Mass/Vol] 94.0 mg/dL Normal [facility] Comment on above: Performed By: #### C MP, TSH, T4, LIPID, FT3 #### [facility] [address] [address] [address] Dinah Rodriges Cholesterol.total/Ch olesterol in HDL [Mass ratio] 2.8 {ratio} Normal [facility] Comment on above: Performed By: #### C MP, TSH, T4, LIPID, FT3 #### [facility] [address] [address] [address] Dinah Rodriges HDL NORMAL > or = 60 mg/dl - LOW CARDIOVASCULAR RISK <40 mg/dl - HIGH CARDIOVASCULAR RISK Normal [facility] Comment on above: Performed By: #### C MP, TSH, T4, LIPID, FT3 #### [facility] [address] [address] [address] Dinah Rodriges LDL CALC NORMAL SEE BELOW Normal [facility] Comment on above: Result Comment: <100 mg/dl OPTIMAL 100 - 129 mg/dl NEAR OR ABOVE OPTIMAL 130 - 159 mg/dl BORDERLINE HIGH 160 - 189 mg/dl HIGH >190 mg/dl VERY HIGH Performed By: #### C MP, TSH, T4, LIPID, FT3 #### [facility] [address] [address] [address] Dinah Rodriges Triglyceride [Mass/Vol] 65 mg/dL Normal <=150 [facility] Comment on above: Performed By: #### C MP, TSH, T4, LIPID, FT3 #### [facility] [address] [address] [address] Dinah Rodriges VLDL CALC 13.0 mg/dL Normal [facility] Comment on above: Performed By: #### C MP, TSH, T4, LIPID, FT3 #### [facility] [address] [address] [address] Dinah Rodriges PROF 14(COMP METB)on 023 Albumin [Mass/Vol] 3.4 g/dL Normal 3.4-5.0 [facility] Comment on above: Performed By: #### C MP, TSH, T4, LIPID, FT3 #### [facility] [address] [place] [address] Dr. Dinah Rodriges Albumin/Globulin [Mass ratio] 1.0 {ratio} Normal [facility] Comment on above: Performed By: #### C MP, TSH, T4, LIPID, FT3 #### [facility] [address] [place] [address] Dr. Dinah Rodriges ALP [Catalytic activity/Vol] 59 U/L Normal 46-116 [facility] Comment on above: Performed By: #### C MP, TSH, T4, LIPID, FT3 #### [facility] [address] [place] [address] Dr. Dinah Rodriges ALT [Catalytic activity/Vol] 13 U/L Critically low 14-59 [facility] Comment on above: Performed By: #### C MP, TSH, T4, LIPID, FT3 #### [facility] [address] [place] [address] Dr. Dinah Rodriges Anion gap [Moles/Vol] 10.7 mmol/L Normal [facility] Comment on above: Performed By: #### C MP, TSH, T4, LIPID, FT3 #### [facility] [address] [place] [address] Dr. Dinah Rodriges AST [Catalytic activity/Vol] 14 U/L Critically low 15-37 [facility] Comment on above: Performed By: #### C MP, TSH, T4, LIPID, FT3 #### [facility] [address] [place] [address] Dr. Dinah Rodriges Bilirubin [Mass/Vol] 0.3 mg/dL Normal 0.2-1.0 [facility] Comment on above: Performed By: #### C MP, TSH, T4, LIPID, FT3 #### [facility] [address] [place] [address] Dr. Dinah Rodriges Calcium [Mass/Vol] 9.4 mg/dL Normal 8.5-10.1 [facility] Comment on above: Performed By: #### C MP, TSH, T4, LIPID, FT3 #### [facility] [address] [address] [address] Dinah Rodriges Chloride [Moles/Vol] 106 mmol/L Normal 98-107 [facility] Comment on above: Performed By: #### C MP, TSH, T4, LIPID, FT3 #### [facility] [address] [place] [address] Dr. Dinah Rodriges CO2 [Moles/Vol] 31.9 mmol/L Normal 21.0-32.0 [facility] Comment on above: Performed By: #### C MP, TSH, T4, LIPID, FT3 #### [facility] [address] [place] [address] Dr. Dinah Rodriges Creatinine [Mass/Vol] 0.95 mg/dL Normal 0.55-1.02 [facility] Comment on above: Performed By: #### C MP, TSH, T4, LIPID, FT3 #### [facility] [address] [place] [address] Dr. Dinah Rodriges EGFR-AF CHINESE >60 Normal >=60 [facility] Comment on above: Performed By: #### C MP, TSH, T4, LIPID, FT3 #### [facility] [address] [place] [address] Dr. Dinah Rodriges EGFR-NON AF CHINESE 57 mL/min/1.73m2 Critically low >=60 [facility] Comment on above: Performed By: #### C MP, TSH, T4, LIPID, FT3 #### [facility] [address] [place] [address] Dr. Dinah Rodriges Globulin (S) [Mass/Vol] 3.4 g/dL Normal [facility] Comment on above: Performed By: #### C MP, TSH, T4, LIPID, FT3 #### [facility] [address] [place] [address] Dr. Dinah Rodriges Glucose [Mass/Vol] 88 mg/dL Normal 74-106 [facility] Comment on above: Performed By: #### C MP, TSH, T4, LIPID, FT3 #### [facility] [address] [place] [address] Dr. Dinah Rodriges Potassium [Moles/Vol] 4.6 mmol/L Normal 3.5-5.1 [facility] Comment on above: Performed By: #### C MP, TSH, T4, LIPID, FT3 #### [facility] [address] [place] [address] Dr. Dinah Rodriges Protein [Mass/Vol] 6.8 g/dL Normal 6.4-8.2 [facility] Comment on above: Performed By: #### C MP, TSH, T4, LIPID, FT3 #### [facility] [address] [place] [address] Dr. Dinah Rodriges Sodium [Moles/Vol] 144 mmol/L Normal 136-145 [facility] Comment on above: Performed By: #### C MP, TSH, T4, LIPID, FT3 #### [facility] [address] [place] [address] Dr. Dinah Rodriges Urea nitrogen [Mass/Vol] 18.0 mg/dL Normal 7.0-18.0 [facility] Comment on above: Performed By: #### C MP, TSH, T4, LIPID, FT3 #### [facility] [address] [place] [address] Dr. Dinah Rodriges Urea nitrogen/Creatinine [Mass ratio] 18.9 mg/mg Normal [facility] Comment on above: Performed By: #### C MP, TSH, T4, LIPID, FT3 #### [facility] [address] [place] [address] Dr. Dinah Rodriges T4on 01-18-2023 T4 [Mass/Vol] 9.30 ug/dL Normal 4.80-13.[address] [facility] Comment on above: Performed By: #### C MP, TSH, T4, LIPID, FT3 #### [facility] [address] [place] [address] Dr. Dinah Rodriges TSHon 01-18-2023 TSH 0.872 uIU/mL Normal 0.358-3.[address] [facility] Comment on above: Performed By: #### C MP, TSH, T4, LIPID, FT3 #### [facility] [address] [address] [address] Dinah Rodriges BNPon 01-20-2022 Natriuretic peptide B (Bld) [Mass/Vol] 464.0 pg/mL Normal <=1,800.0 [facility] Comment on above: Performed By: #### T SH, BNP, T7, LIPID, CMP ####[facility] [id number] [address]Dr. Dinah Rodriges CBC AUTO DIFFon 01-20-2022 BASO # 0.0 103/ul Normal 0.0-0.1 [facility] Comment on above: Performed By: #### C BC #### [facility] [address] [place] [address] Dr. Dinah Rodriges Basophils/100 WBC (Bld) 0.4 % Normal 0.2-2.0 [facility] Comment on above: Performed By: #### C BC #### [facility] [address] [place] [address] Dr. Dinah Rodriges EO # 0.1 103/ul Normal 0.0-0.7 [facility] Comment on above: Performed By: #### C BC #### [facility] [address] [place] [address] Dr. Dinah Rodriges Eosinophils/100 WBC (Bld) 1.9 % Normal 0.9-7.0 [facility] Comment on above: Performed By: #### C BC #### [facility] [address] [place] [address] Dr. Dinah Rodriges Erythrocyte distribution width (RBC) [Ratio] 12.7 % Normal 11.0-15.0 [facility] Comment on above: Performed By: #### C BC #### [facility] [address] [place] [address] Dr. Dinah Rodriges Hematocrit (Bld) [Volume fraction] 35.0 % Critically low 36.0-48.0 [facility] Comment on above: Performed By: #### C BC #### [facility] [address] [place] [address] Dr. Dinah Rodriges Hemoglobin (Bld) [Mass/Vol] 11.5 g/dL Critically low 12.0-16.0 [facility] Comment on above: Performed By: #### C BC #### [facility] [address] [place] [address] Dr. Dinah Rodriges IG # 0.01 10e3/ul Normal 0.00-0.03 [facility] Comment on above: Performed By: #### C BC #### [facility] [address] [place] [address] Dr. Dinah Rodriges IG % 0.2 % Normal 0.0-0.5 [facility] Comment on above: Performed By: #### C BC #### [facility] [address] [place] [address] Dr. Dinah Rodriges LYMPH # 1.4 103/ul Normal 1.2-3.8 [facility] Comment on above: Performed By: #### C BC #### [facility] [address] [place] [address] Dr. Dinah Rodriges Lymphocytes/100 WBC (Bld) 26.9 % Normal 20.5-60.0 [facility] Comment on above: Performed By: #### C BC #### [facility] [address] [place] [address] Dr. Dinah Rodriges MANUAL DIFF REQ NO Normal [facility] Comment on above: Performed By: #### C BC #### [facility] [address] [place] [address] Dr. Dinah Rodriges MCH (RBC) [Entitic mass] 33.0 pg Normal 26.7-34.0 [facility] Comment on above: Performed By: #### C BC #### [facility] [place] [facility] [address] [place] [address] Dr. Dinah Rodriges MCHC (RBC) [Mass/Vol] 32.9 g/dL Normal 29.9-35.2 [facility] Comment on above: Performed By: #### C BC #### [facility] [place] [facility] [address] [place] [address] Dr. Dinah Rodriges MCV (RBC) [Entitic vol] 100.3 fL Critically high 81.0-99.0 [facility] Comment on above: Performed By: #### C BC #### [facility] [place] [facility] [address] [place] [address] Dr. Dinah Rodriges MONO # 0.4 103/ul Normal 0.3-0.8 [facility] Comment on above: Performed By: #### C BC #### [facility] [place] [facility] [address] [place] [address] Dr. Dinah Rodriges Monocytes/100 WBC (Bld) 7.6 % Normal 1.7-12.0 [facility] Comment on above: Performed By: #### C BC #### [facility] [place] [facility] [address] [place] [address] Dr. Dinah Rodriges NEUT # 3.3 103/ul Normal 1.4-6.5 [facility] Comment on above: Performed By: #### C BC #### [facility] [place] [facility] [address] [place] [address] Dr. Dinah Rodriges Neutrophils/100 WBC (Bld) 63.0 % Normal 43.0-75.0 [facility] Comment on above: Performed By: #### C BC #### [facility] [place] [facility] [address] [place] [address] Dr. Dinah Rodriges Platelet mean volume (Bld) [Entitic vol] 10.0 fL Normal 9.5-13.5 [facility] Comment on above: Performed By: #### C BC #### [facility] [place] [facility] [address] [place] [address] Dr. Dinah Rodriges PLT 165 103/ul Normal 150-450 The [facility] [place] Comment on above: Performed By: #### C BC #### [facility] [place] [facility] [address] [place] [address] Dr. Dinah Rodriges RBC 3.49 106/ul Critically low 4.20-5.40 [facility] Comment on above: Performed By: #### C BC #### [facility] [place] [facility] [address] [place] [address] Dr. Dinah Rodriges WBC 5.3 103/ul Normal 4.0-11.0 The [facility] [place] Comment on above: Performed By: #### C BC #### [facility] [place] [facility] [address] [place], [place] [address] Dr. Dinah Rodriges FREE THYROXINE INDEX T7on FTI 3.37 Normal 1.30-4.50 [facility] Comment on above: Performed By: #### T SH, BNP, T7, LIPID, CMP ####[facility] [place] [address] [place] [address]Dr. Dinah Rodriges T3U 34.0 % Normal 30.0-39.0 [facility] Comment on above: Performed By: #### T SH, BNP, T7, LIPID, CMP ####[facility] [place] [address] [place] [address]DrSimran Rodriges T4 [Mass/Vol] 9.90 ug/dL Normal 4.80-13.90 [facility] Comment on above: Performed By: #### T SH, BNP, T7, LIPID, CMP ####[facility] [place] [address] [place] [address]DrSimran Rodriges GLYCOHEMOGLOBIN A1Con 2021 ADA RECOMMENDATION SEE BELOW Normal The [facility] Comment on above: Result Comment: ADA RECOMMENDED LIMIT 4.0 - 6.0 ADA THERAPEUTIC TARGET < 7.0 ACTION SUGGESTED > 7.0 Performed By: #### A 1C ####[facility] [place] [address] [place] [address]DrSimran Rodriges Glucose [Mass/Vol] 103 mg/dL Normal The [facility] Comment on above: Performed By: #### A 1C ####[facility] [place] [address] [place] [address]DrSimran Rodriges HbA1c (Bld) [Mass fraction] 5.2 % Normal 4.5-6.2 The [facility] [place] Comment on above: Performed By: #### A 1C ####[facility] [place] [address] [place] [address]Dr. Dinah Rodriges IRONon 01-20-2022 Iron [Mass/Vol] 79.0 ug/dL Normal 50.0-170.0 [facility] Comment on above: Performed By: #### I KINZA ####[facility] [place] [address] [place] [id number]. Dinah Rodriges LIPID PROFILEon 01-20-2022 CHOL-HDL RATIO NORM SEE BELOW Normal [facility] Comment on above: Result Comment: 3.3 - 4.4 LOW RISK 4.4 - 7.1 AVERAGE RISK 7.1 - 11.0 MODERATE RISK >11.0 HIGH RISK Performed By: #### T SH, BNP, T7, LIPID, CMP ####[facility] [place] [address] [place] [id number]. Dinah Rodriges Cholesterol [Mass/Vol] 153 mg/dL Normal <=200 [facility] Comment on above: Performed By: #### T SH, BNP, T7, LIPID, CMP ####[facility] [place] [address] [place] [id number]. Dinah Rodriges Cholesterol in HDL [Mass/Vol] 54 mg/dL Normal 40-60 [facility] Comment on above: Performed By: #### T SH, BNP, T7, LIPID, CMP ####[facility] [place] [address] [place] [id number]. Dinah Rodriges Cholesterol in LDL [Mass/Vol] 78.8 mg/dL Normal [facility] Comment on above: Performed By: #### T SH, BNP, T7, LIPID, CMP ####[facility] [place] [address] [place] [id number]. Dinah Rodriges Cholesterol.total/Ch olesterol in HDL [Mass ratio] 2.8 {ratio} Normal [facility] Comment on above: Performed By: #### T SH, BNP, T7, LIPID, CMP ####[facility] [place] [address] [place] [id number]. Lizlan Rodriges HDL NORMAL > or = 60 mg/dl - LOW CARDIOVASCULAR RISK <40 mg/dl - HIGH CARDIOVASCULAR RISK Normal [facility] Comment on above: Performed By: #### T SH, BNP, T7, LIPID, CMP ####[facility] [place] [address] [place] [address]Dr. Lizlan Rodriges LDL CALC NORMAL SEE BELOW Normal The [facility] Comment on above: Result Comment: <100 mg/dl OPTIMAL 100 - 129 mg/dl NEAR OR ABOVE OPTIMAL 130 - 159 mg/dl BORDERLINE HIGH 160 - 189 mg/dl HIGH >190 mg/dl VERY HIGH Performed By: #### T SH, BNP, T7, LIPID, CMP ####[facility] [place] [address] [place], [place] [address]Hg. Dinah Rodriges Triglyceride [Mass/Vol] 101 mg/dL Normal <=150 [facility] Comment on above: Performed By: #### T SH, BNP, T7, LIPID, CMP ####[facility] [place] [address] [place], [place] [address]Wn. Dinah Rodriges VLDL CALC 20.2 mg/dL Normal The [facility] [place] Comment on above: Performed By: #### T SH, BNP, T7, LIPID, CMP ####[facility] [place] [address] [place], [place] [address]Nd. Dinah Rodriges MG MAMM SCREEN 3D TENZIN CADon 01-20-2022 MG MAMM SCREEN 3D TENZIN CAD Patient: NEREIDA AGOSTO Exam Date: 01/20/2022 : 1940 Gender:F Ordering : DR JACINTO SERVIN . Admission #: [id number] Family : Order #: [id number] CLICK HERE TO VIEW EXAM RADIOLOGY REPORT [...] Treatments None Family Cancers None LOCATION: The [facility] [place] BREAST COMPOSITION: Scattered areas fibroglandular density. FINDINGS: [...] MD on 01/20/2022 at 11:33 Normal The [facility] [place] PROF 14(COMP METB)on 022 Albumin [Mass/Vol] 3.3 g/dL Critically low 3.4-5.0 Th e [facility] [place] Comment on above: Performed By: #### T SH, BNP, T7, LIPID, CMP ####[facility] [place] [address] [place] [address]Dr. Dinah Rodriges Albumin/Globulin [Mass ratio] 1.0 {ratio} Normal The [facility] [place] Comment on above: Performed By: #### T SH, BNP, T7, LIPID, CMP ####[facility] [place] [address] [place], [place] [address]Dr. Dinah Rodriges ALP [Catalytic activity/Vol] 69 U/L Normal 46-116 [facility] Comment on above: Performed By: #### T SH, BNP, T7, LIPID, CMP ####[facility] [place] [address] [place], [place] [address]Dr. Dinah Rodriges ALT [Catalytic activity/Vol] 6 U/L Critically low 14-59 [facility] Comment on above: Performed By: #### T SH, BNP, T7, LIPID, CMP ####[facility] [place] [address] [place] [address]Dr. Dinah Rodriges Anion gap [Moles/Vol] 8.7 mmol/L Normal [facility] Comment on above: Performed By: #### T SH, BNP, T7, LIPID, CMP ####[facility] [place] [address] [place], [place] [address]Dr. Dinah Rodriges AST [Catalytic activity/Vol] 12 U/L Critically low 15-37 [facility] Comment on above: Performed By: #### T SH, BNP, T7, LIPID, CMP ####[facility] [place] [address] [place], [place] [address]Dr. Dinah Rodriges Bilirubin [Mass/Vol] 0.3 mg/dL Normal 0.2-1.0 [facility] Comment on above: Performed By: #### T SH, BNP, T7, LIPID, CMP ####[facility] [place] [address] [place] [address]Dr. Dinah Rodriges Calcium [Mass/Vol] 9.3 mg/dL Normal 8.5-10.1 [facility] Comment on above: Performed By: #### T SH, BNP, T7, LIPID, CMP ####[facility] [place] [address] [place] [address]Dr. Dinah Rodriges Chloride [Moles/Vol] 104 mmol/L Normal 98-107 The [facility] [place] Comment on above: Performed By: #### T SH, BNP, T7, LIPID, CMP ####[facility] [place] [address] [place] [address]Dr. Dinah Rodriges CO2 [Moles/Vol] 33.2 mmol/L Critically high 21.0-32.0 [facility] Comment on above: Performed By: #### T SH, BNP, T7, LIPID, CMP ####[facility] [place] [address] [place], [place] [address]Dr. Dinah Rodriges Creatinine [Mass/Vol] 1.11 mg/dL Critically high 0.55-1.02 [facility] Comment on above: Performed By: #### T SH, BNP, T7, LIPID, CMP ####[facility] [place] [address] [place], [place] [address]Dr. Dinah Rodriges EGFR-AF CHINESE 57 mL/min/1.73m2 Critically low >=60 The [facility] [place] Comment on above: Performed By: #### T SH, BNP, T7, LIPID, CMP ####[facility] [place] [address] [place], [place] [address]Dr. Dinah Rodriges EGFR-NON AF CHINESE 47 mL/min/1.73m2 Critically low >=60 The [facility] [place] Comment on above: Performed By: #### T SH, BNP, T7, LIPID, CMP ####[facility] [place] [address] [place], [place] [address]Dr. Dinah Rodriges Globulin (S) [Mass/Vol] 3.4 g/dL Normal [facility] Comment on above: Performed By: #### T SH, BNP, T7, LIPID, CMP ####[facility] [place] [address] [place] [address]Dr. Dinah Rodriges Glucose [Mass/Vol] 84 mg/dL Normal 74-106 The [facility] Comment on above: Performed By: #### T SH, BNP, T7, LIPID, CMP ####[facility] [place] [address] [place] [address]Dr. Dinah Rodriges Potassium [Moles/Vol] 4.9 mmol/L Normal 3.5-5.1 The [facility] [place] Comment on above: Performed By: #### T SH, BNP, T7, LIPID, CMP ####[facility] [place] [address] [place] [address]Dr. Dinah Rodriges Protein [Mass/Vol] 6.7 g/dL Normal 6.4-8.2 The [facility] Comment on above: Performed By: #### T SH, BNP, T7, LIPID, CMP ####[facility] [place] [address] [place] [address]Dr. Dinah Rodriges Sodium [Moles/Vol] 141 mmol/L Normal 136-145 The [facility] Comment on above: Performed By: #### T SH, BNP, T7, LIPID, CMP ####[facility] [place] [address] [place] [address]Dr. Dinha Rodriges Urea nitrogen [Mass/Vol] 18.0 mg/dL Normal 7.0-18.0 The [facility] [place] Comment on above: Performed By: #### T SH, BNP, T7, LIPID, CMP ####[facility] [place] [address] [place], [place] [address]Dr. Dinah Rodriges Urea nitrogen/Creatinine [Mass ratio] 16.2 mg/mg Normal The [facility] [place] Comment on above: Performed By: #### T SH, BNP, T7, LIPID, CMP ####[facility] [place] [address] [place], [place] [address]Dr. Dinah Rodriges TSHon 01-20-2022 TSH 1.061 uIU/mL Normal 0.358-3.[address] [facility] Comment on above: Performed By: #### T SH, BNP, T7, LIPID, CMP ####[facility] [place] [address] [place], [place] [address]Lo. Dinah Rodriges TSH RANGE SEE BELOW Normal The [facility] [place] Comment on above: Result Comment: <0.3 4 UIU/ml HYPERTHYROID 0.34-5.60 UIU/ml EUTHYROID >5.60 UIU/ml HYPOTHYROID Performed By: #### T SH, BNP, T7, LIPID, CMP ####[facility] [place] [address] [place], [place] [address]Tp. Dinah Rodriges XR DEXA BONE DENSITYon 01-20 [...] by: DUDLEY RYDER Date: 2022-01-20 11:30 Normal The [facility] [place] Cardiovascular Lab Reporton 12-23-2018 Cardiovascular Lab Report [facility] MR #: [id number] Department of Physician: Martha Seymour M.D. Division of Service Date: 12/23/2018 Cardiology Birthdate: 1940 Adult Cardiovascular Room #: [place] [address] Cardiovascular Laboratory Report PROCEDURE: Transesophageal echocardiogram and cardioversion. INDICATION: Atrial fibrillation. FELLOW: Neto Doty MD PROCEDURE IN DETAIL: An informed consent was obtained from the patient after explaining the indication, risks and benefits, and alternatives. The patient understood and agreed and signed the consent form. The patient was brought to the systems testing laboratory technician and transesophageal echocardiogram was performed under conscious [...] will follow up with me in the [facility] in 2-4 weeks Electronically Signed by: Goldie Waldrop M.D. 01/05/2019 08:36 A Goldie Waldrop M.D. I was present for the entire procedure. Date Dict: 12/23/2018/03:28 P/Neto Doty MD Date Trans: 12/23/2018 04:19 P/beth [id number] cc: Jacinto Servin M.D. [address], [facility] [address] [place] [facility] Cardiovascular Lab Reporton 12-16-2018 Cardiovascular Lab Report [facility] MR #: [id number] Department of Physician: Martha Ken M.D. Division of Service Date: 12/15/2018 Cardiology Birthdate: 1940 Adult Cardiovascular Room #: 3CD [address] [place] [address] Cardiovascular Laboratory Report CLINICAL PRESENTATION: The patient is a 78-year-old female with past medical history significant for hypertension. She was admitted to [facility] [place] with worsening shortness of breath. She was diagnosed with acute congestive heart failure and atrial fibrillation with a rapid ventricular rate. She was evaluated by my colleague, Dr. Lee, [place] [facility]. EKG showed ST elevations in the anterolateral leads and she was transferred urgently to the [facility] due to possible acute myocardial infarction. FINAL [...] ultrasound guidance and micropuncture access technique, a 6-Togolese sheath placed in the right common femoral [...] P/Jj Cano M.D. Date Trans: 12/16/2018 06:03 A/beth [id number] cc: [facility] [address] [facility] [place] [facility] [address] Peter Lee M.D. [address] [facility] [address] Normal The [facility] BASIC METABOLIC PANELon 12-05 Calcium [Mass/Vol] 9.3 mg/dL Normal 8.6-10.3 [facility] Comment on above: Order Comment: No: D o not add to previous draw Performed By: #### 4 6413, 05897, 66317, 78723, 70281 #### [facility] [address] [place] [address], [place] Chloride [Moles/Vol] 102 mmol/L Normal 98-107 [facility] Comment on above: Order Comment: No: D o not add to previous draw Performed By: #### 4 6413, 58441, 86704, 27845, 82561 #### [facility] [address] [place] [address], [place] CO2 [Moles/Vol] 27 mmol/L Normal 21-31 The [facility] Comment on above: Order Comment: No: D o not add to previous draw Performed By: #### 4 6413, 30478, 54686, 54199, 22863 #### [facility] [address] [place] [address], [place] Creatinine [Mass/Vol] 0.91 mg/dL Normal 0.60-1.20 [facility] Comment on above: Order Comment: No: D o not add to previous draw Performed By: #### 4 6413, 33783, 64005, 89963, 40808 #### [facility] [address] [place] [address], [place] GFR/1.73 sq M predicted among blacks MDRD (S/P/Bld) [Vol rate/Area] mL/min/{1.73_m2} Normal >60 [facility] Comment on above: Order Comment: No: D o not add to previous draw Result Comment: Calc ulation may not be valid for patients over 70 years Performed By: #### 4 6413, 87587, 09521, 36802, 44743 #### [facility] [address] [place] [address], [place] GFR/1.73 sq M predicted among non-blacks MDRD (S/P/Bld) [Vol rate/Area] mL/min/{1.73_m2} Normal >60 [facility] Comment on above: Order Comment: No: D o not add to previous draw Result Comment: Calc ulation may not be valid for patients over 70 years Performed By: #### 4 6413, 25197, 85610, 11973, 63444 #### [facility] [address] [place] [address], [place] Glucose [Mass/Vol] 130 mg/dL High 70-100 [facility] Comment on above: Order Comment: No: D o not add to previous draw Performed By: #### 4 6413, 21055, 19376, 39162, 28164 #### [facility] [address] [place] [address], [place] Potassium [Moles/Vol] 3.5 mmol/L Normal 3.5-5.1 [facility] Comment on above: Order Comment: No: D o not add to previous draw Performed By: #### 4 6413, 32592, 95210, 60767, 88217 #### [facility] [address] [place] [address], [place] Sodium [Moles/Vol] 140 mmol/L Normal 136-145 The [facility] Comment on above: Order Comment: No: D o not add to previous draw Performed By: #### 4 6413, 51492, 84311, 49272, 65125 #### [facility] [address] [place] [address], [place] Urea nitrogen [Mass/Vol] 19 mg/dL Normal 7-25 [facility] Comment on above: Order Comment: No: D o not add to previous draw Performed By: #### 4 6413, 72619, 40997, 81812, 81307 #### [facility] [address] BNP (B-TYPE NATRIURETIC PEPT CORI)on 12-15-2018 Natriuretic peptide B (Bld) [Mass/Vol] 369 pg/mL High 0-100 [facility] Comment on above: Order Comment: No: D o not add to previous draw Result Comment: Give n the appropriate clinical setting a BNP result of >100 pg/mL indicates congestive heart failure. Performed By: #### 8 5123, 79852 #### [facility] [address] CBC COMPLETE BLOOD COUNTon 0 12-15-2018 Erythrocyte distribution width (RBC) [Ratio] 12.9 % Normal 11.5-15.0 [facility] Comment on above: Order Comment: No: D o not add to previous draw Performed By: #### 5 0608 #### [facility] [address] Hematocrit (Bld) [Volume fraction] 39.0 % Normal 36.0-45.0 [facility] Comment on above: Order Comment: No: D o not add to previous draw Performed By: #### 5 0608 #### [facility] [address] [place] [address], [facility] Hemoglobin (Bld) [Mass/Vol] 12.6 g/dL Normal 12.0-15.0 [facility] Comment on above: Order Comment: No: D o not add to previous draw Performed By: #### 5 0608 #### [facility] [address] [place] [address], [facility] MCH (RBC) [Entitic mass] 31.6 pg Normal 27.0-33.0 [facility] Comment on above: Order Comment: No: D o not add to previous draw Performed By: #### 5 0608 #### [facility] [address] [place] [address], [facility] MCHC (RBC) [Mass/Vol] 32.3 g/dL Normal 32.0-35.0 [facility] Comment on above: Order Comment: No: D o not add to previous draw Performed By: #### 5 0608 #### [facility] [address] [place] [id number], [facility] MCV (RBC) [Entitic vol] 97.7 fL Normal 82.0-98.0 [facility] Comment on above: Order Comment: No: D o not add to previous draw Performed By: #### 5 0608 #### [facility] [address] [place] [address], [facility] Nucleated RBC/100 WBC (Bld) [Ratio] 0 % Normal 0-0 [facility] Comment on above: Order Comment: No: D o not add to previous draw Performed By: #### 5 0608 #### [facility] [address] [place] [address], [facility] PLAT CNT 252 10*3/uL Normal 150-400 [facility] Comment on above: Order Comment: No: D o not add to previous draw Performed By: #### 5 0608 #### [facility] [address] [place] [address], [facility] RBC (Bld) [#/Vol] 3.99 10*6/uL Normal 3.80-5.00 [facility] Comment on above: Order Comment: No: D o not add to previous draw Performed By: #### 5 0608 #### [facility] [address] [place] [address], [facility] WBC (Bld) [#/Vol] 8.04 10*3/uL Normal 4.00-10.60 [facility] Comment on above: Order Comment: No: D o not add to previous draw Performed By: #### 5 0608 #### [facility] [address] [place] [address], [facility] HEMOGLOBIN A1Con 12-15-2018 HbA1c (Bld) [Mass fraction] 108 mg/dL Normal 70-126 [facility] Comment on above: Order Comment: No: D o not add to previous draw Performed By: #### 8 5123, 23186 #### [facility] [address] [place] [address], [place] HbA1c (Bld) [Mass fraction] 5.4 % Normal 4.0-6.0 [facility] Comment on above: Order Comment: No: D o not add to previous draw Performed By: #### 8 5123, 78098 #### [facility] [address] [place] [address], [place] LIPID PROFILEon 12-15-2018 Cholesterol [Mass/Vol] 138 mg/dL Normal 120-200 [facility] Comment on above: Order Comment: No: D o not add to previous draw Result Comment: CHOL ESTEROL REFERENCE RANGE: 20 YEARS AND OLDER CARDIOVASCULAR RISK Less than 200 mg/dl Low Risk 200 to 239 mg/dl Borderline Risk 240 mg/dl and greater High Risk Performed By: #### 4 6413, 03034, 14766, 05169, 26159 #### [facility] [address] [place] [address], [place] Cholesterol in HDL [Mass/Vol] 36 mg/dL Normal 23-92 [facility] Comment on above: Order Comment: No: D o not add to previous draw Result Comment: Slig ht variation in normal range could be due to gender and/or age. HDL CHOLESTEROL REFERENCE RANGE: 20 years and older Cardiovascular Risk > or =60 mg/dL Desirable 40 TO 59 mg/dL Low Risk <40 mg/dL High Risk Performed By: #### 4 6413, 20857, 05995, 44294, 11552 #### [facility] [address] [place] [address], [place] Cholesterol in LDL [Mass/Vol] 81 mg/dL Normal 0-130 [facility] Comment on above: Order Comment: No: D o not add to previous draw Result Comment: LDL IS A CALCULATION LDL IS ONLY VALID IF THE TRIG IS LESS THAN 400. Performed By: #### 4 6413, 07494, 50062, 82235, 02908 #### [facility] [address] [place] [address], [facility] Cholesterol.total/Ch olesterol in HDL [Mass ratio] 3.8 {ratio} Normal .0-4.5 [facility] Comment on above: Order Comment: No: D o not add to previous draw Performed By: #### 4 [id number], 99513, 79039, 77568, 67435 #### [facility] [address] [place] [address], [facility] NON-HDL CHOLESTEROL 102 mg/dL Normal [facility] Comment on above: Order Comment: No: D o not add to previous draw Performed By: #### 4 [id number], 10412, 73863, 59780, 83502 #### [facility] [address] [place] [address], [facility] Triglyceride [Mass/Vol] 106 mg/dL Normal 40-149 [facility] Comment on above: Order Comment: No: D o not add to previous draw Result Comment: TRIG LYCERIDE REFERENCE RANGE: 20 YEARS AND OLDER CARDIOVASCULAR RISK LESS THAN 150 mg/dl LOW RISK 150 TO 199 mg/dl BORDERLINE RISK 200 mg/dl AND GREATER HIGH RISK Performed By: #### 4 6413, 74135, 20657, 78724, 52942 #### [facility] [address] [place] [address], [facility] VLDL CHOL 21 mg/dL Normal 0-40 [facility] Comment on above: Order Comment: No: D o not add to previous draw Performed By: #### 4 6413, 24529, 99662, 59789, 69801 #### [facility] [address] [place] [address], [place] MAGNESIUM BLOODon 12-15-2018 Magnesium [Mass/Vol] 1.9 mg/dL Normal 1.9-2.7 [facility] Comment on above: Order Comment: No: D o not add to previous draw Performed By: #### 4 6413, 34028, 01958, 77544, 25987 #### [facility] [address] [place], [place] [id number] [place] [address] PHOSPHORUS BLOODon 9 Phosphate [Mass/Vol] 4.5 mg/dL Normal 2.5-5.0 [facility] Comment on above: Order Comment: combi henry request Performed By: #### 4 6413, 20630, 68826, 19125, 84292 #### [facility] [address] PORTABLE CHEST 1 VIEWon 12-05 PORTABLE CHEST 1 VIEW [facility] Department of Radiology [address] [place] [id number] Patient Name: NEREIDA AGOSTO : 1940 Sex: F Age: Race: White Pt. Location: [id number] Patient Status: I Ordered Date: 12/15/2018 2:10:00 [...] failure Electronically signed by:Bharti Bazan. Transcribed by: [email or web address], User Resident: Electronically Signed by: BHARTI BAZAN @ 12/15/2018 03:50 PM Normal [facility] Comment on above: Order Comment: R/O C HF TSH3on 12-15-2018 TSH 3RD GENERATION 0.86 uIU/mL Normal 0.34-5.60 [facility] Comment on above: Performed By: #### 4 6413, 46682, 95337, 23264, 66653 #### [facility] [address] Vital Signs Date Time Vital Sign Value Performing Clinician Clemencia larry 02-02-2023 14:45-0400 Blood Pressure Location [facility] 02-02-2023 14:45-0400 Diastolic blood pressure 76 mm[Hg] Rashi [employer] [facility] 02-02-2023 14:45-0400 Heart rate 74 /min [employer] [facility] 02-02-2023 14:45-0400 Respiratory rate 16 /min Rashi CAMARAL [facility] 02-02-2023 14:45-0400 Systolic blood pressure 126 mm[Hg] Rashi [employer] [facility] Encounters Encounter Date Encounter Type Care Provider Facility Start: 10-28-2023 End: 10-28-2023 ambulatory KHANG HOPSON [facility] Start: 08-05-2023 End: 08-05-2023 ambulatory ROD AGUAYO Not Available Start: 03-05-2023 End: 03-06-2023 ambulatory Rashi R JAXL Facility: [facility] Start: 03-05-2023 End: 03-05-2023 Patient encounter procedure Rashi R NILL [facility] Nill[facility] [place] Start: 02-24-2023 End: 02-25-2023 ambulatory Rashi R JAXL Facility:CD:[id number] Start: 02-19-2023 End: 02-19-2023 [facility] Start: 02-02-2023 End: 02-03-2023 ambulatory Rashi R JAXL Facility: [facility] Start: 02-02-2023 End: 02-02-2023 Patient encounter procedure Rashi R NILL General [facility] Nill[facility] [place] Start: 01-21-[address] JACINTO SERVIN . Facili ty:[facility] Start: 01-20-2023 ambulatory Rashi JOHN Facility : [facility] Start: 01-19-2023 End: 01-19-[address] JACINTO SERVIN . Facility:[facility] Start: 01-18-2023 End: 01-19-[address] JACINTO SERVIN . Facility:[facility] Start: 01-20-2022 End: 01-21-[address] JACINTO SERVIN . Facility:[facility] Start: 12-23-2018 End: 12-24-2018 Patient encounter procedure NEDAB Denis WALDROP Facility:[facility] Start: 12-15-2018 End: 12-16-2018 Evaluation and management of inpatient PETER Alvarenga JESUS Facility:[facility] Procedures Date Procedure Procedure Detail Performing Clinician Start: 02-24-2023 Colonoscopy Rashi NI LL Start: 12-15-2018 FLUOROSCOPY OF MULTI PLE CORONARY ARTERIES USING OTH CONTRAST JJ CANO Start: 12-15-2018 MEASURE CARDIAC SAMP L \T\ PRESSURE, BILATERAL, PERC JJ CANO Start: 12-15-2018 MEASUREMENT OF ARTER IAL FLOW, PULMONARY, PERC APPROACH JJ CANO Closed fracture of h ip (disorder) Rashi CAMARAL Ligation of fallopian tube Gal JOHN Immunizations Immunization Date Immunization Notes Care Provider Fa [facility] 07-21-2022 influenza virus vaccine, unspecified formulation Rashi CAMARAKaren [facility] [place] 08-28-2021 SARS-CoV-2 (COVID-19 ) mRNA-1273 vaccine Rashi NILL [facility] 11-14-2020 SARS-CoV-2 (COVID-19 ) mRNA-1273 vaccine Rashi NILL [facility] 10-18-2020 SARS-CoV-2 (COVID-19 ) mRNA-1273 vaccine Rashi CAMARAL [facility] Payers Date Payer Category Payer [employer] [id number] 2018 Medicare [id number] 1959 [employer] [id number] 1957 Medicare [id number] 1940 Unknown [id number] 1940 Unknown [id number] 1940 Unknown [id number] 1940 Unknown [id number] 1940 Unknown [id number] [id number] 1942 Unknown [id number] [id number] 1940 Unknown [id number] [id number] 1940 Unknown [id number] [id number] 1940 Unknown [id number] [id number] 1940 Unknown [id number] 1940 Unknown [id number] Social History Date Type Detail Facility Start: 02-02-2023 Tobacco smoking status Ex-smoker (fi nding) [facility] Tobacco smoking status Never [facility] [place] [facility] Assigned At [facility] Functional Status Date Assessment Result Facility 02-02-2023 Functional Status N/A [facility] [place] Progress note 10-28-2023 Note Date & Type Note Facility 10-28-2023 Note Cardiology [place] [facility] Note SUBJECTIVE No chief complaint on file. Nereida Agosto is a 83 y.o. female here for follow-up. PMHx: Takotsubo cardiomyopathy, HTN and PAF Patient here for 3 mo follow up CHF, PAF, and hypertension. Had BMP this morning. C/o more frequent and more intense dizziness. Taking meclizine twice day. She denies chest pain, LE edema, and bleeding on Eliquis. She has an apt this afternoon with Dr. Servin. States her BOOTH remains unchanged. She has dizziness when she turns her head too quickly or if she stands too quickly. Has been going on for a little while but feels like it has worsened. We attempted to obtain orthostatic vitals today but we were unable to hear her blood pressure or obtain it with the automatic vitals machine when sitting or standing. She has some BOOTH with heavier exertion, this is stable. Her BP at home has been running 120s/80s. Her weight has been stable. Denies c/o CP, orthopnea, PND, LE edema, palpitations, syncope. Patient Active Problem List Diagnosis Hypothyroidism Paroxysmal atrial fibrillation (CMS/HCC) Takotsubo cardiomyopathy Essential hypertension Aortic valve regurgitation BMI 30.0-30.9,adult Congestive heart failure (CMS/HCC) Left atrial enlargement Lower extremity edema LVH (left ventricular hypertrophy) Osteoporosis Positive fecal occult blood test Tubulovillous adenoma of colon Closed fracture of left hip (CMS/HCC) Fracture of left humerus Intertrochanteric fracture of left femur (CMS/HCC) On anticoagulant therapy Right knee pain Sinus bradycardia by electrocardiography Traumatic injury of head Vasovagal syncope Past Medical History: Diagnosis Date Abnormal ECG Arrhythmia Atrial fibrillation (CMS/HCC) Hypertension Hypothyroidism Takotsubo cardiomyopathy Family History Problem Relation Name Age of Onset No Known Problems Mother No Known Problems Father Social History Tobacco Use Smoking status: Former Types: Cigarettes Smokeless tobacco: Never Substance Use Topics Alcohol use: Yes Comment: occasional Allergies Allergen Reactions Sulfa (Sulfonamide Antibiotics) Review of Systems Cardiovascular: Positive for dyspnea on exertion and palpitations ( sometimes ). Neurological: Positive for dizziness and light-headedness. All other systems reviewed and are negative. OBJECTIVE Visit Vitals BP 124/80 (BP Location: Left arm, Patient Position: Sitting) Pulse 68 Ht 1.499 m (4' 11 ) Wt 68.9 kg (152 lb) SpO2 96% BMI 30.70 kg/m??? Smoking Status Former BSA 1.69 m??? Medications: Current Outpatient Medications: alendronate (Fosamax) 70 mg [...] mouth in the morning., Disp: , Rfl: ferrous sulfate 325 (65 Fe) MG tablet, Take 1 tablet every other day by oral route., Disp: , Rfl: furosemide (Lasix) 20 mg tablet, Take 1 tablet by mouth in the morning., Disp: , Rfl: levothyroxine (Synthroid, Levoxyl) 50 mcg tablet, Take 1 tablet every day by oral route for 30 days., Disp: , Rfl: lisinopril 20 mg tablet, TAKE 1 TABLET IN THE MORNING, Disp: 90 tablet, Rfl: 3 meclizine (Antivert) 25 mg tablet, Take 25 mg by mouth if needed., Disp: , Rfl: spironolactone (Aldactone) 25 mg tablet, Take 0.5 tablets (12.5 mg) by mouth in the morning., Disp: 90 tablet, Rfl: 3 Physical Exam Vitals reviewed. Constitutional: Appearance: Normal appearance. She is normal weight. HENT: Head: Normocephalic and atraumatic. Right Ear: External ear normal. Left Ear: External ear normal. Eyes: Extraocular Movements: Extraocular movements intact. Pupils: Pupils are equal, round, and reactive to light. Neck: Vascular: No carotid bruit. Comments: No JVD Cardiovascular: Rate and Rhythm: Normal rate and regular rhythm. Pulses: Normal pulses. Heart sounds: Murmur heard. Pulmonary: Effort: Pulmonary effort is normal. Breath sounds: Normal breath sounds. Abdominal: General: Bowel sounds are normal. Palpations: Abdomen is soft. Musculoskeletal: Cervical back: Neck supple. Right lower leg: No edema. Left lower leg: No edema. Skin: General: Skin is warm and dry. Neurological: General: No focal deficit present. Mental Status: She is alert and oriented to person, place, and time. Psychiatric: Mood and Affect: Mood normal. Behavior: Behavior normal. Thought Content: Thought content normal. Judgment: Judgment normal. Labs/Testing/Procedures: 10/28/2023 Cr 1.02, BUN 18, K 4.1, Na 147, eGFR 52 Labs 01/20/2022 Hgb 11.5, plt 165 Cr. 1.11, BUN 18, K 4.9, GFR 47 (more content not included)... [facility] Progress note 10-28-2023 Note Date & Type Note Facility 10-28-2023 Note Patient here for 3 m o follow up CHF, PAF, and hypertension. Had BMP this morning. C/o more frequent and more intense dizziness. Taking meclizine twice day. She denies chest pain, LE edema, and bleeding on Eliquis. She has an apt this afternoon with Dr. Servin. States her BOOTH remains unchanged. Review of Systems Cardiovascular: Positive for dyspnea on exertion and palpitations ( sometimes ). Neurological: Positive for dizziness and light-headedness. All other systems reviewed and are negative. [facility] Progress note 08-05-2023 Note Date & Type [...] All other systems reviewed and are negative. [facility] Progress note 08-05-2023 Note Date & Type [...] aorta. - Succes (more content not included)... [facility] Progress note 02-19-2023 Note Date & Type [...] 08/21/2023). Flaquito Rojas (more content not included)... [facility] Clinical Note 02-02-2023 Note Date & Type [...] vaccine 08/28/2021 Recor (more content not included)... [facility] Comment on above: Result Comment: Elec tronically Signed By: ALVARO AHMADI, Rashi Weaver\Date and Time Signed: 02/02/23 15:35 EDT Evaluation + Plan note Note Date & Type Note Facility Evaluation + Plan note No data available for this section General [facility] [place] [facility] Discharge instructions Note Date & Type Note Facility Hospital Discharge instructions No data available for this section [facility] Progress note Note Date & Type Note Facility Progress note No data available for this section General Surgery [place] Summary Purpose Family History No Family History Records FoundNo Family History Records FoundNo Family History Records FoundNo Family History Records FoundNo Family History Records Found Advance Directives No Advanced Directives Records FoundNo Advanced Directives Records FoundNo Advanced Directives Records FoundNo Advanced Directives Records FoundNo Advanced Directives Records Found Hospital Course Note MR#: [id number] [facility] Pt. Name: Nereida Agosto Admitted: 12/15/2018 [...] was sent to the ER. Apparently in [facility], the patient was found to have decompensated heart failure with new onset of atrial fibrillation. She was in rapid ventricular response. The patient was admitt (more content not included)... Additional Source Comments INFORMATION SOURCE (unrecogn ized section and content) DATE CREATED AUTHOR 04/29/2019 [facility] DATE CREATED AUTHOR AUTHOR'S ORGANIZ ATION 01/19/2023 [facility] DATE CREATED AUTHOR AUTHOR'S ORGANIZ ATION 03/06/2023 [facility] DATE CREATED AUTHOR AUTHOR'S ORGANIZ ATION 08/08/2023 [facility] DATE CREATED AUTHOR AUTHOR'S ORGANIZ ATION 11/05/2023 [facility] Patient Care team informatio n (unrecognized section and content) Personnel Name: Jacinto Servin MD Address: Address: [address] [place] [address] Personnel Name: Jacinto Servin MD Address: Address: [address] [place] [address] FOR RECORDS PERTAINING TO PATIENTS WHO ARE [...] BE BASED ON THE PRIMARY CLINICAL RECORDS. [employer] provides no warranty or guarantee of the accuracy or completeness of information in this document.
== END 2023-11-17 09:55 | disposition home or self-care (01) ==
LOC: CARD 09:55
PROVIDERS: PCP Family Medicine; Visit Provider Nurse Practitioner Family
DX: I50.22 Chronic systolic (congestive) heart failure (principal)
CPT/HCPCS: 93308

== ENCOUNTER 2024-01-26 11:07 | Outpatient (OUT) | payer MEDICARE, OTHER, SELFPAY ==
--- NOTE | 2024-01-26 11:13 | MM_ITS ---
Patient Name: JOI DUNCAN MR#: [id number] : 1940 Exam Date: 01/26/2024 Ordering Doctor: DR JACINTO KAUR . RADIOLOGY REPORT PROCEDURE: MM TOMOSYNTHESIS SCREENING BI COMPARISON: MG MAMM SCREEN 3D TENZIN CAD, 01/20/2022. MG MAMM SCREEN 3D TENZIN CAD, 01/21/2023. INDICATIONS: Screening Calculator Name NCI Breast Cancer Risk Assessment Tool 5 Year Breast Cancer Risk Not Reported. Lifetime Breast Cancer Risk Not Reported. Personal Breast Cancer No Personal Ovarian Cancer No Treatments None Family Cancers None LOCATION: [facility] BREAST COMPOSITION: There are scattered areas of fibroglandular density. FINDINGS: DIAGNOSTIC CATEGORY 2--BENIGN FINDING. NO CHANGE FROM COMPARISON. Scattered benign-appearing nodules are present. Scattered benign-appearing calcifications are present. Scattered benign-appearing lymph nodes are present. RIGHT BREAST: No significant suspicious finding. LEFT BREAST: No significant suspicious finding. RECOMMENDATIONS: ROUTINE MAMMOGRAM AND CLINICAL EVALUATION IN 12 MONTHS. PLEASE NOTE: A NORMAL MAMMOGRAM DOES NOT EXCLUDE THE POSSIBILITY OF BREAST CANCER. A CLINICALLY SUSPICIOUS PALPABLE LUMP SHOULD BE BIOPSIED. Dictated by: Greg Monzon MD on 01/26/2024 at 12:42 Approved by: Greg Monzon MD on 01/26/2024 at 12:44
== END 2024-01-26 11:08 | disposition home or self-care (01) ==
LOC: MAMMO 11:07
PROVIDERS: PCP Family Medicine; Visit Provider Family Medicine
DX: Z12.31 Encounter for screening mammogram for malignant neoplasm of breast (principal)
CPT/HCPCS: 77063; 77067

== ENCOUNTER 2024-03-29 18:26 | Outpatient (REF) | payer MEDICARE, OTHER, SELFPAY ==
--- OUTSIDE RECORDS SUMMARY | 2024-03-29 18:32 | XMS_ITS | CCD ---
Author Organization [facility] Care Team Providers Care Utility Division Project Manager Name Role Phone PETER LEE Referring Unavailable JACINTO SERVIN Primary Care Unavailable CHAPITO SHIPLEY Attending Unavailable CHAPITO SHIPLEY Admitting Unavailable [place] Procedure Practitioner Unavailab JJ Rendon Surgeon Unavailable ELTARAYRAYY, EHAB A Admitting Unavailable PALMA, EHAB A [...] Unavailable HOY ., DR CASEY Attending Unavailable LONGDALE, DR KELSI Aguirre Consulting Unavailable SVETAEBER, DR DUDLEY Lee Consulting Unavailable HOY ., DR CASEY Admitting Unavailable HOY ., DR CASEY Primary Care Unavailable HOY ., DR CASEY Attending Unavailable HOY ., DR CASEY Admitting Unavailable HOY ., DR CASEY Primary Care Unavailable HOY ., DR CASEY Consulting Unavailable YOLANDAY ., DR CASEY Attending Unavailable Jacinto Servin Primary Care Physician ROD AGUAYO Attending Unavailable FLAQUITO BALLARD Attending Unavailable KHANG LORENZO Attending Unavailable FLAQUITO BALLARD Attending Unavailable PALMA, NEDAB Attending Unavailable Rashi JOHN Attending Unavailable Allergies Allergy Classification Reported Allergen(s) Allergy Type Date of Onset Reaction(s) Facility (4 sources) Sulfonamides (Antibiotic); Translations: [sulfa drugs] Drug allergy Unknown (qualifier value) General Surgery [place] (1 source) Sulfonamides (Antibiotic); Translations: [SULFA (SULFONAMIDE ANTIBIOTICS)] Propensity to adverse reactions to drug (disorder) 2 [facility] Repository (1 source) ALPRAZolam; Translations: [Xanax] Drug Allergy [facility] Repository Medications Current Medications Medication Drug Class(es) Dates Sig (Normalized) Sig (Original) apixaban 5 mg oral tablet (3 sources) Factor Xa Inhibitor Start: 01-22-2023 take 1 tablet by mouth twice daily aspirin 81 mg delayed release oral tablet (1 source) Platelet Aggregation Inhibitor, Nonsteroidal Anti-inflammatory Drug Start: 03-15-2024 take 1 tablet by mouth once daily aspirin 81 mg Oral EC Tab 81 mg = 1 tab(s), Oral, Daily, Refills(s) 0 Start Date: 03/15/24 Status: Ordered carvedilol 12.5 mg oral tablet (3 sources) alpha-Adrenergic Elvin, beta-Adrenergic Elvin Start: 01-22-2023 [...] Status: Ordered furosemide 20 mg oral tablet (3 sources) Loop Diuretic Start: 01-22-2023 take 1 tablet by mouth once daily levothyroxine sodium 0.05 mg oral tablet (3 sources) l-Thyroxine Start: 01-22-2023 take 1 tablet by mouth once daily lisinopril 20 mg oral tablet (3 sources) Angiotensin Converting Enzyme Inhibitor Start: 01-22-2023 take 1 tablet by mouth once daily meclizine hydrochloride 25 mg oral tablet (3 sources) Antiemetic Start: 02-02-2023 take 1 tablet by mouth twice daily meclizine 25 mg Tab 25 mg = 1 tab(s), Oral, BID, Refills(s) 0 Start Date: 02/02/23 Status: Ordered Completed/Discontinued Medications Medication Drug Class(es) Dates Sig (Normalized) Sig (Original) alendronic acid 70 mg oral tablet (3 sources) Bisphosphonate Start: 01-22-2023 take 1 tablet by mouth every week potassium chloride 20 meq extended release oral tablet (3 sources) Start: 01-22-2023 take 1 tablet by mouth once daily potassium chloride 20 mEq ER Tab 20 mEq = 1 tab(s), Oral, Daily, Refills(s) 0 Start Date: 01/22/23 Status: Ordered Problems Active Problems Problem Classification Problem Date Documented Da te Episodic/Chronic Cardiac dysrhythmias (6 sources) Unspecified atrial fibrillation; Translations: [Atrial fibrillation] Onset: 01-23-2022 01-22-2023 Chronic Congestive heart failure; nonhypertensive (6 sources) Unspecified diastolic (congestive) heart failure; Translations: [Congestive heart failure] Onset: 01-23-2022 01-22-2023 Chronic Disorders of lipid metabolism (1 source) Hyperlipidemia, unspecified; Translations: [HYPERLIPIDEMIA UNSPECIFIED] Onset: 01-23-2022 Chronic Essential hypertension (5 sources) Hypertensive disorder; Translations: [Essential (primary) hypertension] Onset: 07-01-2022 01-22-2023 Chronic Heart valve disorders (3 sources) Aortic valve regurgitation 01-22-2023 Chronic Hypertension with complications and secondary hypertension (1 source) Hypertensive heart disease with heart failure; Translations: [HTN HEART DISEASE W/HEART FAIL] Onset: 01-23-2022 Chronic Menopausal disorders (1 source) Other primary ovarian failure; Translations: [OTHER PRIMARY OVARIAN FAILURE] Onset: 01-23-2022 Chronic Osteoporosis (4 sources) Age-related osteoporosis without current pathological fracture; Translations: [Osteoporosis] Onset: 01-23-2022 01-22-2023 Chronic Other and ill-defined heart disease (1 source) Cardiomegaly; Translations: [CARDIOMEGALY] Onset: 01-23-2022 Chronic Other and ill-defined heart disease (3 sources) Left atrial enlargement 01-22-2023 Chronic Other and ill-defined heart disease (3 sources) Left ventricular hypertrophy 01-22-2023 Chronic Other and ill-defined heart disease (2 sources) Takotsubo syndrome; 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] Onset: 05-28-2022 Chronic Other and ill-defined heart disease (1 source) Cardiomegaly 02-23-2024 Chronic Other and unspecified benign neoplasm (1 source) Benign neoplasm of colon; Translations: [Benign neoplasm of colon, unspecified] Onset: 03-05-2023 Episodic Other and unspecified benign neoplasm (2 sources) Adenomatous polyp of colon 03-05-2023 Episodic Other and unspecified benign neoplasm (2 sources) History of polyp of colon; Translations: [Personal history of colonic polyps] Onset: 03-15-2024 Episodic Other gastrointestinal disorders (1 source) Abnormal feces; Translations: [Other fecal abnormalities] Onset: 02-02-2023 Episodic Other gastrointestinal disorders (3 sources) Occult blood in stools 02-02-2023 Episodic Other nutritional; endocrine; and metabolic disorders (3 sources) Body mass index 30+ - obesity 02-02-2023 Chronic Other nutritional; endocrine; and metabolic disorders (1 source) Obesity caused by energy imbalance 02-23-2024 Chronic Emelia-; endo-; and myocarditis; cardiomyopathy (except that caused by tuberculosis or sexually transmitted disease) (3 sources) Cardiomyopathy 01-22-2023 Chronic Residual codes; unclassified (3 sources) Edema of lower extremity 01-22-2023 Episodic Thyroid disorders (4 sources) Hypothyroidism, unspecified; Translations: [Hypothyroidism] Onset: 01-23-2022 [...] Test Name Value Interpretation Reference Range Facility Ambulatory Visit Summaryon 0 03-15-2024 Ambulatory Visit Summary Ambulatory Visit Summary NEREIDA AGOSTO :1940 Visit Date:03/15/2024 Ambulatory Visit Instructions Your Diagnosis Personal history of colonic polyps Your Care Team Attending Physician - ALVARO AHMADI, Rashi Lee Primary Care Physician - Jacinto Servin MD This Is Your Medications List aspirin (aspirin 81 mg Oral EC Tab) Contact prescribing physician if questions or concerns alendronate (alendronate 70 mg Tab) apixaban (Eliquis 5 mg oral tablet) carvedilol (carvedilol 12.5 mg Tab) furosemide (furosemide 20 mg Tab) levothyroxine (Synthroid 50 mcg Tab) lisinopril (lisinopril 20 mg Tab) meclizine (meclizine 25 mg Tab) potassium chloride (potassium chloride 20 mEq ER Tab) Procedures Performed Colonoscopy (02/24/2023), Cardiac fluoroscopy, Closed fracture of hip, Tubal ligation. Discharge Vitals Heart Rate (Peripheral) 76 Respiratory Rate 16 Blood Pressure 118/80 Height 147.3 cm Height 58 in Weight 69.7 kg Weight 153.34 lb BMI 32.12 Medications What How Much When Instructions Unchanged aspirin (aspirin 81 mg Oral EC Tab) 1 Tablets By Mouth Every day Unchanged alendronate (alendronate 70 mg Tab) 1 [...] treatment for. A-fib Aortic valve regurgitation BMI 32.0-32.9,adult Cardiomegaly Cardiomyopathy Congestive heart failure HTN (hypertension) Hypothyroidism Left atrial enlargement Lower extremity edema LVH (left ventricular hypertrophy) Obesity due to excess calories Osteoporosis Personal history of colonic polyps Positive fecal occult blood test Tubulovillous adenoma of colon Patient Survey You may receive a survey via text or e-mail asking about your office visit. Please share your experience with us by completing your survey. We appreciate your feedback and thank you for choosing us for your care. Alina Henry [facility] General Surgery Office/Clini c Noteon 03-15-2024 General Surgery Office/Clinic Note General Surgery Office/Clinic Note Chief Complaint surveillance colonoscopy HPI Staff 83 year old female presents for surveillance colonoscopy. Last colonoscopy completed 02/24/23 with ascending villous adenoma with high grade dysplasia. Denies abdominal or rectal pain. No rectal bleeding or change in bowel habits. Denies nausea or vomiting. No unexplained weight loss. History of Present Illness 84 yo female with h/o atrial fibrillation, on Eliquis, cardiomyopathy, htn, hypothyroidism, osteoporosis, here for evaluation for surveillance colonoscopy, patient had colonoscopy 1 year ago with removal of 1.5 cm ascending colon tubulovillous adenoma with focus of high grade dysplasia; patient denies change in bms or blood in stools, no abd complaints; abdominal operations significant for tubal ligation; on Eliquis and baby asa daily; no tobacco use; no fmhx of GI malignancy or IBD. Review of Systems PHQ Score Initial Depression Screen Score: 0 SCORE ROS - Provider Constitutional: no fever, no [...] noncontributory. Physical Exam Vitals & Measurements HR: 76(Peripheral) RR: 16 BP: 118/80 HT: 58 in HT: 147.3 cm WT: 69.7 kg WT: 153.34 lb BMI: 32.12 HEENT: normal conjunctiva, sclera clear, no scleral [...] hepatosplenomegaly; normal bs Lymphatic: no cervical adenopathy, no supraclavicular adenopathy. Musculoskeletal: normal gait, digits and nails without infection, nodes, cyanosis, clubbing. Skin: no rashes, no lesions, no ulcers, no subcutaneous nodules, induration. Psychiatric/Neuro: oriented to time, place, person, judgement normal, affect appropriate for age, insight intact, no focal deficits. Tests: review of old records completed , Discussed surgical options, risks, and possible complications with patient. Assessment/Plan 1. Personal history of colonic polyps (Z86.010: Personal history of colonic polyps) plan surveillance colonoscopy under anesthesia, informed consent obtained. hold Eliquis 2 days prior to procedure, continue baby asa. Follow-up No qualifying data available Problem List/Past Medical History Ongoing A-fib Aortic valve regurgitation BMI 32.0-32.9,adult Cardiomegaly Cardiomyopathy Congestive heart failure HTN (hypertension) Hypothyroidism Left atrial enlargement Lower extremity edema LVH (left ventricular hypertrophy) Obesity due to excess calories Osteoporosis Personal history of colonic polyps Positive fecal occult blood test Tubulovillous adenoma of colon Historical No qualifying data Procedure/Surgical History Colonoscopy (02/24/2023), Cardiac fluoroscopy, Closed fracture of hip, Tubal ligation. Medications alendronate 70 mg Tab, 70 mg= 1 tab(s), Oral, qWeek aspirin 81 mg Oral EC Tab, 81 mg= 1 tab(s), Oral, Daily carvedilol 12.5 mg Tab, 12.5 mg= 1 tab(s), Oral, BID Eliquis 5 mg oral tablet, 5 mg= 1 tab(s), Oral, BID furosemide 20 [...] age 25.0 Years. Stopped age 42 Years., 03/15/2024 Family Hist (more content not included)... Normal [facility] Comment on above: Result Comment: Elec tronically Signed By: ALVARO AHMADI, Rashi Weaver\Date and Time Signed: 03/15/24 14:08 EDT Office Visiton 02-07-2024 Follow-up visit [id number] Nereida Agosto 1940 F Date Provider Department Center 02/07/2024 GOLDIE PELAEZ KIM Cook Family History Problem Relation Age of Onset No Known Problems Mother No Known Problems Father Family Status - Relation Status Age at Mother Father Level of Service:[id number] [place] OFFICE/OUTPATIENT ESTABLISHED LOW MDM 20 MIN Normal [facility] Office Visiton 10-28-2023 Follow-up visit [id number] Nereida Agosto 1940 F Date Provider Department Center 10/28/2023 KHANG SALEH KIM Cook Family History Problem Relation Age of Onset No Known Problems Mother No Known Problems Father Family Status - Relation Status Age at Mother Father Level of Service:47879 [place] OFFICE/OUTPATIENT ESTABLISHED MOD MDM 30 MIN Reason for Visit and Comments: Congestive Heart Failure [127] Dizziness [335205] Normal [facility] Office Visiton 08-05-2023 Follow-up visit [id number] Nereida Agosto P 1940 F Date Provider Department Center 08/05/2023 [id number] MAN Anneliese Hos Family History Problem Relation Age of Onset No Known Problems Mother No Known Problems Father Family Status - Relation Status Age at Mother Father Level of Service:42755 [place] OFFICE/OUTPATIENT ESTABLISHED MOD MDM 30-39 MIN [facility] Office Visiton 02-19-2023 Follow-up visit [id number] Nereida Agosto P 1940 Date Provider Department Center 02/19/2023 [id number] ANAYA Anneliese Hos Family History Problem Relation Age of Onset No Known Problems Mother No Known Problems Father Family Status - Relation Status Age at Mother Father Level of Service:56822 [place] OFFICE/OUTPATIENT ESTABLISHED MOD MDM 30-39 MIN Reason for Visit and Comments: Follow-up [046654] - Pt is here for sx clearance scheduled for echo 02/17 [facility] OCC BLD IMMUNO SCREENon 01-04 OCCULT BLOOD Positive Abnormal NEGATIVE [facility] Comment on above: Performed By: #### O BSCRN #### [facility] [address] [place] [address] Dr. Dinah Rodriges CBC AUTO DIFFon 01-18-2023 BASO # 0.0 103/ul Normal 0.0-0.1 [facility] Comment on above: Performed By: #### C BC #### [facility] [address] [place] [address] Dr. Dinah Rodriges Basophils/100 WBC (Bld) 0.6 % Normal 0.2-2.0 [facility] Comment on above: Performed By: #### C BC #### [facility] [address] [place] [address] Dr. Dinah Rodriges EO # 0.1 103/ul Normal 0.0-0.7 [facility] Comment on above: Performed By: #### C BC #### [facility] [address] [place] [address] Dr. Dinah Rodriges Eosinophils/100 WBC (Bld) 1.8 % Normal 0.9-7.0 [facility] Comment on above: Performed By: #### C BC #### [facility] [address] [place] [address] Dr. Dinah Rodriges Erythrocyte distribution width (RBC) [Ratio] 12.7 % Normal 11.0-15.0 [facility] Comment on above: Performed By: #### C BC #### [facility] [address] [place] [address] Dr. Dinah Rodriges Hematocrit (Bld) [Volume fraction] 39.7 % Normal 36.0-48.0 [facility] Comment on above: Performed By: #### C BC #### [facility] [address] [place] [address] Dr. Dinah Rodriges Hemoglobin (Bld) [Mass/Vol] 12.6 g/dL Normal 12.0-16.0 [facility] Comment on above: Performed By: #### C BC #### [facility] [address] [place] [address] Dr. Dinah Rodriges IG # 0.01 10e3/ul Normal 0.00-0.03 [facility] Comment on above: Performed By: #### C BC #### [facility] [address] [place] [address] Dr. Dinah Rodriges IG % 0.2 % Normal 0.0-0.5 [facility] Comment on above: Performed By: #### C BC #### [facility] [address] [place] [address] Dr. Dinah Rodriges LYMPH # 1.5 103/ul Normal 1.2-3.8 [facility] Comment on above: Performed By: #### C BC #### [facility] [address] [place] [address] Dr. Dinah Rodriges Lymphocytes/100 WBC (Bld) 28.7 % Normal 20.5-60.0 [facility] Comment on above: Performed By: #### C BC #### [facility] [address] [place] [address] Dr. Dinah Rodriges MANUAL DIFF REQ NO Normal [facility] Comment on above: Performed By: #### C BC #### [facility] [address] [place] [address] Dr. Dinah Rodriges MCH (RBC) [Entitic mass] 30.7 pg Normal 26.7-34.0 [facility] Comment on above: Performed By: #### C BC #### [facility] [address] [place] [address] Dr. Dinah Rodriges MCHC (RBC) [Mass/Vol] 31.7 g/dL Normal 29.9-35.2 [facility] Comment on above: Performed By: #### C BC #### [facility] [address] [place] [address] Dr. Dinah Rodriges MCV (RBC) [Entitic vol] 96.8 fL Normal 81.0-99.0 [facility] Comment on above: Performed By: #### C BC #### [facility] [address] [place] [address] Dr. Dinah Rodriges MONO # 0.4 103/ul Normal 0.3-0.8 [facility] Comment on above: Performed By: #### C BC #### [facility] [address] [place] [address] Dr. Dinah Rodriges Monocytes/100 WBC (Bld) 7.3 % Normal 1.7-12.0 [facility] Comment on above: Performed By: #### C BC #### [facility] [address] [place] [address] Dr. Dinah Rodriges NEUT # 3.1 103/ul Normal 1.4-6.5 [facility] Comment on above: Performed By: #### C BC #### [facility] [address] [place] [address] Dr. Dinah Rodriges Neutrophils/100 WBC (Bld) 61.4 % Normal 43.0-75.0 [facility] Comment on above: Performed By: #### C BC #### [facility] [address] [place] [address] Dr. Dinah Rodriges Platelet mean volume (Bld) [Entitic vol] 9.7 fL Normal 9.5-13.5 [facility] Comment on above: Performed By: #### C BC #### [facility] [address] [address] [address] Dinah Rodriges PLT 163 103/ul Normal 150-450 [facility] Comment on above: Performed By: #### C BC #### [facility] [address] [address] [address] Dinah Rodriges RBC 4.10 106/ul Critically low 4.20-5.40 [facility] Comment on above: Performed By: #### C BC #### [facility] [address] [address] [address] Dinah Rodriges WBC 5.1 103/ul Normal 4.0-11.0 [facility] Comment on above: Performed By: #### C BC #### [facility] [address] [address] [address] Dinah Rodriges FREE T3on 01-18-2023 FREE T3 2.11 pg/mlL Critically low 2.18-3.98 [facility] Comment on above: Performed By: #### C MP, TSH, T4, LIPID, FT3 #### [facility] [address] [address] [address] Dinah Rodriges GLYCOHEMOGLOBIN A1Con 2022 ADA RECOMMENDATION SEE BELOW Normal [facility] Comment on above: Result Comment: ADA RECOMMENDED LIMIT 4.0 - 6.0 ADA THERAPEUTIC TARGET < 7.0 ACTION SUGGESTED > 7.0 Performed By: #### A 1C ####[facility] [id number] [address]Dr. Dinah Rodriges Glucose [Mass/Vol] 105 mg/dL Normal [facility] Comment on above: Performed By: #### A 1C ####[facility] [id number] [id number][address] Dinah Rodriges HbA1c (Bld) [Mass fraction] 5.3 % Normal 4.5-6.2 [facility] Comment on above: Performed By: #### A 1C ####[facility] [id number] [address]Dr. Dinah Rodriges LIPID PROFILEon 01-18-2023 CHOL-HDL RATIO NORM SEE BELOW Normal [facility] Comment on above: Result Comment: 3.3 - 4.4 LOW RISK 4.4 - 7.1 AVERAGE RISK 7.1 - 11.0 MODERATE RISK >11.0 HIGH RISK Performed By: #### C MP, TSH, T4, LIPID, FT3 #### [facility] [address] [address] [address] Dinah Rodriges Cholesterol [Mass/Vol] 168 mg/dL Normal <=200 [facility] Comment on above: Performed By: #### C MP, TSH, T4, LIPID, FT3 #### [facility] [address] [address] [address] Dinah Rodriges Cholesterol in HDL [Mass/Vol] 61 mg/dL Critically high 40-60 [facility] Comment on above: Performed By: #### C MP, TSH, T4, LIPID, FT3 #### [facility] [address] [address] [address] Dinah Rodriges Cholesterol in LDL [Mass/Vol] 94.0 mg/dL Normal [facility] Comment on above: Performed By: #### C MP, TSH, T4, LIPID, FT3 #### [facility] [address] [address] [address] Dinah Rodriges Cholesterol.total/Ch olesterol in HDL [Mass ratio] 2.8 {ratio} Normal [facility] Comment on above: Performed By: #### C MP, TSH, T4, LIPID, FT3 #### [facility] [address] [address] [address] Dinah Rodriges HDL NORMAL > or = 60 mg/dl - LOW CARDIOVASCULAR RISK <40 mg/dl - HIGH CARDIOVASCULAR RISK Normal [facility] Comment on above: Performed By: #### C MP, TSH, T4, LIPID, FT3 #### [facility] [address] [address] [address] Dinah Rodriges LDL CALC NORMAL SEE BELOW Normal [facility] Comment on above: Result Comment: <100 mg/dl OPTIMAL 100 - 129 mg/dl NEAR OR ABOVE OPTIMAL 130 - 159 mg/dl BORDERLINE HIGH 160 - 189 mg/dl HIGH >190 mg/dl VERY HIGH Performed By: #### C MP, TSH, T4, LIPID, FT3 #### [facility] [address] [address] [address] Dinah Rodriges Triglyceride [Mass/Vol] 65 mg/dL Normal <=150 [facility] Comment on above: Performed By: #### C MP, TSH, T4, LIPID, FT3 #### [facility] [address] [address] [address] Dinah Rodriges VLDL CALC 13.0 mg/dL Normal [facility] Comment on above: Performed By: #### C MP, TSH, T4, LIPID, FT3 #### [facility] [address] [address] [address] Dinah Rodriges PROF 14(COMP METB)on 023 Albumin [Mass/Vol] 3.4 g/dL Normal 3.4-5.0 [facility] Comment on above: Performed By: #### C MP, TSH, T4, LIPID, FT3 #### [facility] [address] [address] [address] Dinah Rodriges Albumin/Globulin [Mass ratio] 1.0 {ratio} Normal [facility] Comment on above: Performed By: #### C MP, TSH, T4, LIPID, FT3 #### [facility] [address] [address] [address] Dinah Rodriges ALP [Catalytic activity/Vol] 59 U/L Normal 46-116 [facility] Comment on above: Performed By: #### C MP, TSH, T4, LIPID, FT3 #### [facility] [address] [address] [address] Dinah Rodriges ALT [Catalytic activity/Vol] 13 U/L Critically low 14-59 [facility] Comment on above: Performed By: #### C MP, TSH, T4, LIPID, FT3 #### [facility] [address] [address] [address] Dinah Rodriges Anion gap [Moles/Vol] 10.7 mmol/L Normal [facility] Comment on above: Performed By: #### C MP, TSH, T4, LIPID, FT3 #### [facility] [address] [place] [address] Dr. Dinah Rodriges AST [Catalytic activity/Vol] 14 U/L Critically low 15-37 [facility] Comment on above: Performed By: #### C MP, TSH, T4, LIPID, FT3 #### [facility] [address] [place] [address] Dr. Dinah Rodriges Bilirubin [Mass/Vol] 0.3 mg/dL Normal 0.2-1.0 [facility] Comment on above: Performed By: #### C MP, TSH, T4, LIPID, FT3 #### [facility] [address] [place] [address] Dr. Dinah Rodriges Calcium [Mass/Vol] 9.4 mg/dL Normal 8.5-10.1 [facility] Comment on above: Performed By: #### C MP, TSH, T4, LIPID, FT3 #### [facility] [address] [place] [address] Dr. Dinah Rodriges Chloride [Moles/Vol] 106 mmol/L Normal 98-107 [facility] Comment on above: Performed By: #### C MP, TSH, T4, LIPID, FT3 #### [facility] [address] [place] [address] Dr. Dinah Rodriges CO2 [Moles/Vol] 31.9 mmol/L Normal 21.0-32.0 [facility] Comment on above: Performed By: #### C MP, TSH, T4, LIPID, FT3 #### [facility] [address] [place] [address] Dr. Dinah Rodriges Creatinine [Mass/Vol] 0.95 mg/dL Normal 0.55-1.02 [facility] Comment on above: Performed By: #### C MP, TSH, T4, LIPID, FT3 #### [facility] [address] [place] [address] Dr. Dinah Rodriges EGFR-AF CAP[place] VERDEAN >60 Normal >=60 [facility] Comment on above: Performed By: #### C MP, TSH, T4, LIPID, FT3 #### [facility] [address] [place] [address] Dr. Dinah Rodriges EGFR-NON AF [place] 57 mL/min/1.73m2 Critically low >=60 [facility] Comment on above: Performed By: #### C MP, TSH, T4, LIPID, FT3 #### [facility] [address] [place] [address] Dr. Dinah Rodriges Globulin (S) [Mass/Vol] 3.4 g/dL Normal [facility] Comment on above: Performed By: #### C MP, TSH, T4, LIPID, FT3 #### [facility] [address] [place] [address] Dr. Dinah Rodriges Glucose [Mass/Vol] 88 mg/dL Normal 74-106 [facility] Comment on above: Performed By: #### C MP, TSH, T4, LIPID, FT3 #### [facility] [address] [place] [address] Dr. Dinah Rodriges Potassium [Moles/Vol] 4.6 mmol/L Normal 3.5-5.1 [facility] Comment on above: Performed By: #### C MP, TSH, T4, LIPID, FT3 #### [facility] [address] [place] [address] Dr. Dinah Rodriges Protein [Mass/Vol] 6.8 g/dL Normal 6.4-8.2 [facility] Comment on above: Performed By: #### C MP, TSH, T4, LIPID, FT3 #### [facility] [address] [place] [address] Dr. Dinah Rodriges Sodium [Moles/Vol] 144 mmol/L Normal 136-145 [facility] Comment on above: Performed By: #### C MP, TSH, T4, LIPID, FT3 #### [facility] [address] [place] [address] Dr. Dinah Rodriges Urea nitrogen [Mass/Vol] 18.0 mg/dL Normal 7.0-18.0 [facility] Comment on above: Performed By: #### C MP, TSH, T4, LIPID, FT3 #### [facility] [address] [place] [address] Dr. Dinah Rodriges Urea nitrogen/Creatinine [Mass ratio] 18.9 mg/mg Normal [facility] Comment on above: Performed By: #### C MP, TSH, T4, LIPID, FT3 #### [facility] [address] [place] [address] Dr. Dinah Rodriges T4on 01-18-2023 T4 [Mass/Vol] 9.30 ug/dL Normal 4.80-13.90 [facility] Comment on above: Performed By: #### C MP, TSH, T4, LIPID, FT3 #### [facility] [address] [place] [address] Dr. Dinah Rodriges TSHon 01-18-2023 TSH 0.872 uIU/mL Normal 0.358-3.740 [facility] Comment on above: Performed By: #### C MP, TSH, T4, LIPID, FT3 #### [facility] [address] [place] [address] Dr. Dinah Rodriges BNPon 01-20-2022 Natriuretic peptide B (Bld) [Mass/Vol] 464.0 pg/mL Normal <=1,800.0 [facility] Comment on above: Performed By: #### T SH, BNP, T7, LIPID, CMP ####[facility] [address] [place] [address]Dr. Dinah Rodriges CBC AUTO DIFFon 01-20-2022 BASO # 0.0 103/ul Normal 0.0-0.1 [facility] Comment on above: Performed By: #### C BC #### [facility] [address] [place] [address] Dr. Dinah Rodriges Basophils/100 WBC (Bld) 0.4 % Normal 0.2-2.0 [facility] Comment on above: Performed By: #### C BC #### [facility] [address] [place] [address] Dr. Dinah Rodriges EO # 0.1 103/ul Normal 0.0-0.7 [facility] Comment on above: Performed By: #### C BC #### [facility] [address] [place] [address] Dr. Dinah Rodriges Eosinophils/100 WBC (Bld) 1.9 % Normal 0.9-7.0 [facility] Comment on above: Performed By: #### C BC #### [facility] [address] [place] [address] Dr. Dinah Rodriges Erythrocyte distribution width (RBC) [Ratio] 12.7 % Normal 11.0-15.0 [facility] Comment on above: Performed By: #### C BC #### [facility] [address] [place] [address] Dr. Dinah Rodriges Hematocrit (Bld) [Volume fraction] 35.0 % Critically low 36.0-48.0 [facility] Comment on above: Performed By: #### C BC #### [facility] [address] [place] [address] Dr. Dinah Rodriges Hemoglobin (Bld) [Mass/Vol] 11.5 g/dL Critically low 12.0-16.0 [facility] Comment on above: Performed By: #### C BC #### [facility] [address] [place] [address] Dr. Dinah Rodriges IG # 0.01 10e3/ul Normal 0.00-0.03 [facility] Comment on above: Performed By: #### C BC #### [facility] [address] [place] [address] Dr. Dinah Rodriges IG % 0.2 % Normal 0.0-0.5 [facility] Comment on above: Performed By: #### C BC #### [facility] [address] [place] [address] Dr. Dinah Rodriges LYMPH # 1.4 103/ul Normal 1.2-3.8 [facility] Comment on above: Performed By: #### C BC #### [facility] [address] [place] [address] Dr. Dinah Rodriges Lymphocytes/100 WBC (Bld) 26.9 % Normal 20.5-60.0 [facility] Comment on above: Performed By: #### C BC #### [facility] [address] [place] [address] Dr. Dinah Rodriges MANUAL DIFF REQ NO Normal [facility] Comment on above: Performed By: #### C BC #### [facility] [address] [place] [address] Dr. Dinah Rodriges MCH (RBC) [Entitic mass] 33.0 pg Normal 26.7-34.0 [facility] Comment on above: Performed By: #### C BC #### [facility] [address] [place] [address] Dr. Dinah Rodriges MCHC (RBC) [Mass/Vol] 32.9 g/dL Normal 29.9-35.2 [facility] Comment on above: Performed By: #### C BC #### [facility] [address] [place] [address] Dr. Dinah Rodriges MCV (RBC) [Entitic vol] 100.3 fL Critically high 81.0-99.0 [facility] Comment on above: Performed By: #### C BC #### [facility] [address] [place] [address] Dr. Dinah Rodriges MONO # 0.4 103/ul Normal 0.3-0.8 [facility] Comment on above: Performed By: #### C BC #### [facility] [address] [place] [address] Dr. Dinah Rodriges Monocytes/100 WBC (Bld) 7.6 % Normal 1.7-12.0 [facility] Comment on above: Performed By: #### C BC #### [facility] [address] [place] [address] Dr. Dinah Rodriges NEUT # 3.3 103/ul Normal 1.4-6.5 [facility] Comment on above: Performed By: #### C BC #### [facility] [address] [place] [address] Dr. Dinah Rodriges Neutrophils/100 WBC (Bld) 63.0 % Normal 43.0-75.0 [facility] Comment on above: Performed By: #### C BC #### [facility] [address] [place], [place] [address] Dr. Dinah Rodriges Platelet mean volume (Bld) [Entitic vol] 10.0 fL Normal 9.5-13.5 [facility] Comment on above: Performed By: #### C BC #### [facility] [address] [place] [address] [address] Dinah Rodriges PLT 165 103/ul Normal 150-450 [facility] Comment on above: Performed By: #### C BC #### [facility] [address] [place] [address] [address] Dinah Rodriges RBC 3.49 106/ul Critically low 4.20-5.40 [facility] Comment on above: Performed By: #### C BC #### [facility] [address] [place] [address] [address] Dinah Rodriges WBC 5.3 103/ul Normal 4.0-11.0 [facility] Comment on above: Performed By: #### C BC #### [facility] [address] [place] [address] [address] Dinah Rodriges FREE THYROXINE INDEX T7on FTI 3.37 Normal 1.30-4.50 [facility] Comment on above: Performed By: #### T SH, BNP, T7, LIPID, CMP ####[facility] [address] [place] [id number]. Dinah Rodriges T3U 34.0 % Normal 30.0-39.0 [facility] Comment on above: Performed By: #### T SH, BNP, T7, LIPID, CMP ####[facility] [address] [place], [place] [address]ZsDr. Dinah Rodriges T4 [Mass/Vol] 9.90 ug/dL Normal 4.80-13.90 [facility] Comment on above: Performed By: #### T SH, BNP, T7, LIPID, CMP ####[facility] [address] [place] [id number]. Dinah Rodriges GLYCOHEMOGLOBIN A1Con 2021 ADA RECOMMENDATION SEE BELOW Normal [facility] Comment on above: Result Comment: ADA RECOMMENDED LIMIT 4.0 - 6.0 ADA THERAPEUTIC TARGET < 7.0 ACTION SUGGESTED > 7.0 Performed By: #### A 1C ####[facility] [address] [place] [address]Dr. Dinah Rodriges Glucose [Mass/Vol] 103 mg/dL Normal [facility] Comment on above: Performed By: #### A 1C ####[facility] [address] [place] [address]Dr. Dinah Rodriges HbA1c (Bld) [Mass fraction] 5.2 % Normal 4.5-6.2 [facility] Comment on above: Performed By: #### A 1C ####[facility] [address] [place], [place] [address]Dr. Dinah Rodriges IRONon 01-20-2022 Iron [Mass/Vol] 79.0 ug/dL Normal 50.0-170.0 [facility] Comment on above: Performed By: #### I KINZA ####[facility] [address] [place], [place] [address]Dr. Dinah Rodriges LIPID PROFILEon 01-20-2022 CHOL-HDL RATIO NORM SEE BELOW Normal [facility] Comment on above: Result Comment: 3.3 - 4.4 LOW RISK 4.4 - 7.1 AVERAGE RISK 7.1 - 11.0 MODERATE RISK >11.0 HIGH RISK Performed By: #### T SH, BNP, T7, LIPID, CMP ####[facility] [address] [place], [place] [address]Dr. Dinah Rodriges Cholesterol [Mass/Vol] 153 mg/dL Normal <=200 [facility] Comment on above: Performed By: #### T SH, BNP, T7, LIPID, CMP ####[facility] [address] [place], [place] [address]Dr. Dinah Antelmo Cholesterol in HDL [Mass/Vol] 54 mg/dL Normal 40-60 [facility] Comment on above: Performed By: #### T SH, BNP, T7, LIPID, CMP ####[facility] [address] [place], [place] [address]Dr. Dinah Rodriges Cholesterol in LDL [Mass/Vol] 78.8 mg/dL Normal [facility] Comment on above: Performed By: #### T SH, BNP, T7, LIPID, CMP ####[facility] [address] [place] [address]Dr. Dinah Rodriges Cholesterol.total/Ch olesterol in HDL [Mass ratio] 2.8 {ratio} Normal [facility] Comment on above: Performed By: #### T SH, BNP, T7, LIPID, CMP ####[facility] [address] [place] [id number]. Dinah Rodriges HDL NORMAL > or = 60 mg/dl - LOW CARDIOVASCULAR RISK <40 mg/dl - HIGH CARDIOVASCULAR RISK Normal [facility] Comment on above: Performed By: #### T SH, BNP, T7, LIPID, CMP ####[facility] [address] [place] [address]Dr. Dinah Rodriges LDL CALC NORMAL SEE BELOW Normal [facility] Comment on above: Result Comment: <100 mg/dl OPTIMAL 100 - 129 mg/dl NEAR OR ABOVE OPTIMAL 130 - 159 mg/dl BORDERLINE HIGH 160 - 189 mg/dl HIGH >190 mg/dl VERY HIGH Performed By: #### T SH, BNP, T7, LIPID, CMP ####[facility] [address] [place] [address]Dr. Dinah Rodriges Triglyceride [Mass/Vol] 101 mg/dL Normal <=150 [facility] Comment on above: Performed By: #### T SH, BNP, T7, LIPID, CMP ####[facility] [address] [place] [id number]. Dinah Rodriges VLDL CALC 20.2 mg/dL Normal [facility] Comment on above: Performed By: #### T SH, BNP, T7, LIPID, CMP ####[facility] [address] [place] [address]Dr. Dinah Rodriges MG MAMM SCREEN 3D TENZIN CADon 01-20-2022 MG MAMM SCREEN 3D TENZIN CAD Patient: NEREIDA AGOSTO Exam Date: 01/20/2022 : 1940 Gender:F Ordering : DR JACINTO SERVIN . Admission #: [id number] Family : Order #: [id number] CLICK HERE TO VIEW EXAM RADIOLOGY REPORT [...] No Treatments None Family Cancers None LOCATION: [facility] BREAST COMPOSITION: Scattered areas fibroglandular density. FINDINGS: [...] Monzon MD on 01/20/2022 at 11:33 Normal [facility] PROF 14(COMP METB)on 022 Albumin [Mass/Vol] 3.3 g/dL Critically low 3.4-5.0 [facility] Comment on above: Performed By: #### T SH, BNP, T7, LIPID, CMP ####[facility] [address] [place] [id number]. Dinah Rodriges Albumin/Globulin [Mass ratio] 1.0 {ratio} Normal [facility] Comment on above: Performed By: #### T SH, BNP, T7, LIPID, CMP ####[facility] [address] [place] [id number]. Dinah Rodriges ALP [Catalytic activity/Vol] 69 U/L Normal 46-116 [facility] Comment on above: Performed By: #### T SH, BNP, T7, LIPID, CMP ####[facility] [address] [place] [id number]. Dinah Rodriges ALT [Catalytic activity/Vol] 6 U/L Critically low 14-59 [facility] Comment on above: Performed By: #### T SH, BNP, T7, LIPID, CMP ####[facility] [address] [place] [address]Dr. Dinah Rodriges Anion gap [Moles/Vol] 8.7 mmol/L Normal [facility] Comment on above: Performed By: #### T SH, BNP, T7, LIPID, CMP ####[facility] [address] [place] [address]Dr. Dinah Rodriges AST [Catalytic activity/Vol] 12 U/L Critically low 15-37 [facility] Comment on above: Performed By: #### T SH, BNP, T7, LIPID, CMP ####[facility] [address] [place], [place] [address]Dr. Dinah Rodriges Bilirubin [Mass/Vol] 0.3 mg/dL Normal 0.2-1.0 [facility] Comment on above: Performed By: #### T SH, BNP, T7, LIPID, CMP ####[facility] [address] [place], [place] [address]Dr. Dinah Rodriges Calcium [Mass/Vol] 9.3 mg/dL Normal 8.5-10.1 [facility] Comment on above: Performed By: #### T SH, BNP, T7, LIPID, CMP ####[facility] [address] [place], [place] [address]Dr. Dinah Rodriges Chloride [Moles/Vol] 104 mmol/L Normal 98-107 [facility] Comment on above: Performed By: #### T SH, BNP, T7, LIPID, CMP ####[facility] [address] [place], [place] [address]Dr. Dinah Rodriges CO2 [Moles/Vol] 33.2 mmol/L Critically high 21.0-32.0 [facility] Comment on above: Performed By: #### T SH, BNP, T7, LIPID, CMP ####[facility] [address] [place], [place] [address]Dr. Dinah Rodriges Creatinine [Mass/Vol] 1.11 mg/dL Critically high 0.55-1.02 [facility] Comment on above: Performed By: #### T SH, BNP, T7, LIPID, CMP ####[facility] [address] [place] [address]Dr. Dinah Rodriges EGFR-AF CAPE VERDEAN 57 mL/min/1.73m2 Critically low >=60 [facility] Comment on above: Performed By: #### T SH, BNP, T7, LIPID, CMP ####[facility] [address] [place] [address]Dr. Dinah Rodriges EGFR-NON AF [place] 47 mL/min/1.73m2 Critically low >=60 [facility] Comment on above: Performed By: #### T SH, BNP, T7, LIPID, CMP ####[facility] [address] [place], [place] [address]Dr. Dinah Rodriges Globulin (S) [Mass/Vol] 3.4 g/dL Normal [facility] Comment on above: Performed By: #### T SH, BNP, T7, LIPID, CMP ####[facility] [address] [place], [place] [address]Dr. Dinah Rodriges Glucose [Mass/Vol] 84 mg/dL Normal 74-106 [facility] Comment on above: Performed By: #### T SH, BNP, T7, LIPID, CMP ####[facility] [address] [place], [place] [address]Dr. Dinah Rodriges Potassium [Moles/Vol] 4.9 mmol/L Normal 3.5-5.1 [facility] Comment on above: Performed By: #### T SH, BNP, T7, LIPID, CMP ####[facility] [address] [place], [place] [address]Dr. Lizlan Rodriges Protein [Mass/Vol] 6.7 g/dL Normal 6.4-8.2 [facility] Comment on above: Performed By: #### T SH, BNP, T7, LIPID, CMP ####[facility] [address] [place], [place] [address]Dr. Dinah Rodriges Sodium [Moles/Vol] 141 mmol/L Normal 136-145 [facility] Comment on above: Performed By: #### T SH, BNP, T7, LIPID, CMP ####[facility] [address] [place] [id number]. Dinah Rodriges Urea nitrogen [Mass/Vol] 18.0 mg/dL Normal 7.0-18.0 [facility] Comment on above: Performed By: #### T SH, BNP, T7, LIPID, CMP ####[facility] [address] [place] [id number]. Dinah Rodriges Urea nitrogen/Creatinine [Mass ratio] 16.2 mg/mg Normal [facility] Comment on above: Performed By: #### T SH, BNP, T7, LIPID, CMP ####[facility] [address] [place] [address]Dr. Dinah Rodriges TSHon 01-20-2022 TSH 1.061 uIU/mL Normal 0.358-3.740 [facility] Comment on above: Performed By: #### T SH, BNP, T7, LIPID, CMP ####[facility] [address] [place] [address]Dr. Dinah Rodriges TSH RANGE SEE BELOW Normal [facility] Comment on above: Result Comment: <0.3 4 UIU/ml HYPERTHYROID 0.34-5.60 UIU/ml EUTHYROID >5.60 UIU/ml HYPOTHYROID Performed By: #### T SH, BNP, T7, LIPID, CMP ####[facility] [address] [place] [address]Dr. Dinah Rodriges XR DEXA BONE DENSITYon 01-20 [...] DUDLEY RYDER Date: 2022-01-20 11:30 Normal [facility] Cardiovascular Lab Reporton 12-23-2018 Cardiovascular Lab Report [facility] MR #: [id number] Department of Physician: Martha Seymour M.D. Division of Service Date: 12/23/2018 Cardiology Birthdate: 1940 Adult Cardiovascular Room #: [place] [address] Cardiovascular Laboratory Report PROCEDURE: Transesophageal echocardiogram and cardioversion. INDICATION: Atrial fibrillation. FELLOW: Neto Doty MD PROCEDURE IN DETAIL: An informed consent was obtained from the patient after explaining the indication, risks and benefits, and alternatives. The patient understood and agreed and signed the consent form. The patient was brought to the filling station laborer and transesophageal echocardiogram was performed under conscious [...] will follow up with me in the [facility] in 2-4 weeks Electronically Signed by: Goldie Waldrop M.D. 01/05/2019 08:36 A Ehab Eltahawy, M.D. I was present for the entire procedure. Date Dict: 12/23/2018/03:28 P/Neto Doty MD Date Trans: 12/23/2018 04:19 P/beth [id number] cc: Jacinto Servin M.D. [address] [facility] [id number] Normal [facility] Cardiovascular Lab Reporton 12-16-2018 Cardiovascular Lab Report [facility] MR #: [id number] Department of Physician: Martha Ken M.D. Division of Service Date: 12/15/2018 Cardiology Birthdate: 1940 Adult Cardiovascular Room #: 3CD [id number] [place] [address] Cardiovascular Laboratory Report CLINICAL PRESENTATION: The patient is a 78-year-old female with past medical history significant for hypertension. She was admitted to [facility] with worsening shortness of breath. She was diagnosed with acute congestive heart failure and atrial fibrillation with a rapid ventricular rate. She was evaluated by my colleague, Dr. Lee, [place] [facility]. EKG showed ST elevations in the anterolateral leads and she was transferred urgently to the [facility] due to possible acute myocardial infarction. [...] ultrasound guidance and micropuncture access technique, a 6-Vietnamese sheath placed in the right common femoral [...] Cano M.D. Date Trans: 12/16/2018 06:03 Denis/beth [id number] cc: Jacinto Servin M.D. [address] Peter Lee M.D. [facility] [place] [address] Normal [facility] BASIC METABOLIC PANELon 12-05 Calcium [Mass/Vol] 9.3 mg/dL Normal 8.6-10.[address] [facility] Comment on above: Order Comment: No: D o not add to previous draw Performed By: #### 4 6413, 71698, 68795, 13663, 04152 #### [facility] [address] [place] [address], [place] Chloride [Moles/Vol] 102 mmol/L Normal 98-107 [facility] Comment on above: Order Comment: No: D o not add to previous draw Performed By: #### 4 6413, [address]299, 12664, 68699, 54513 #### [facility] [address] [place] [address], [place] CO2 [Moles/Vol] 27 mmol/L Normal 21-31 [facility] Comment on above: Order Comment: No: D o not add to previous draw Performed By: #### 4 6413, 57770, 21777, 46868, 97220 #### [facility] [address] [place] [address], [facility] Creatinine [Mass/Vol] 0.91 mg/dL Normal 0.60-1.20 [facility] Comment on above: Order Comment: No: D o not add to previous draw Performed By: #### 4 6413, 97609, 69852, 22263, 76312 #### [facility] [address] [place] [address], [facility] GFR/1.73 sq M predicted among blacks MDRD (S/P/Bld) [Vol rate/Area] mL/min/{1.73_m2} Normal >60 [facility] [facility] Comment on above: Order Comment: No: D o not add to previous draw Result Comment: Calc ulation may not be valid for patients over 70 years Performed By: #### 4 6413, 06989, 41651, 12745, 87063 #### [facility] [address] [place] [address], [facility] GFR/1.73 sq M predicted among non-blacks MDRD (S/P/Bld) [Vol rate/Area] mL/min/{1.73_m2} Normal >60 [facility] Comment on above: Order Comment: No: D o not add to previous draw Result Comment: Calc ulation may not be valid for patients over 70 years Performed By: #### 4 6413, 89903, 84775, 50081, 25299 #### [facility] [address] [place] [address], [place] Glucose [Mass/Vol] 130 mg/dL High 70-[address] [facility] Comment on above: Order Comment: No: D o not add to previous draw Performed By: #### 4 6413, 35724, 58726, 22149, 27281 #### [facility] [address] [place] [address], [facility] Potassium [Moles/Vol] 3.5 mmol/L Normal 3.5-5.1 [facility] Comment on above: Order Comment: No: D o not add to previous draw Performed By: #### 4 6413, 40138, 06512, 80003, 00695 #### [facility] [address] [place] [address], [place] Sodium [Moles/Vol] 140 mmol/L Normal 136-[address] [facility] Comment on above: Order Comment: No: D o not add to previous draw Performed By: #### 4 6413, 48427, 03881, 14191, 70254 #### [facility] [address] [place] [id number], [facility] Urea nitrogen [Mass/Vol] 19 mg/dL Normal 7-25 [facility] Comment on above: Order Comment: No: D o not add to previous draw Performed By: #### 4 6413, 34249, 55478, 55558, 55508 #### [facility] [address] [place] [address], [facility] BNP (B-TYPE NATRIURETIC PEPT CORI)on 12-15-2018 Natriuretic peptide B (Bld) [Mass/Vol] 369 pg/mL High 0-100 [facility] Comment on above: Order Comment: No: D o not add to previous draw Result Comment: Give n the appropriate clinical setting a BNP result of >100 pg/mL indicates congestive heart failure. Performed By: #### 8 5123, 72270 #### [facility] [address] [place] [id number], [place] CBC COMPLETE BLOOD COUNTon 0 12-15-2018 Erythrocyte distribution width (RBC) [Ratio] 12.9 % Normal 11.5-15.0 [facility] Comment on above: Order Comment: No: D o not add to previous draw Performed By: #### 5 0608 #### [facility] [address] Hematocrit (Bld) [Volume fraction] 39.0 % Normal 36.0-45.0 [facility] Comment on above: Order Comment: No: D o not add to previous draw Performed By: #### 5 0608 #### [facility] [address] [place] [address], [facility] Hemoglobin (Bld) [Mass/Vol] 12.6 g/dL Normal 12.0-15.0 [facility] Comment on above: Order Comment: No: D o not add to previous draw Performed By: #### 5 0608 #### [facility] [address] [place] [address], [facility] MCH (RBC) [Entitic mass] 31.6 pg Normal 27.0-33.0 [facility] Comment on above: Order Comment: No: D o not add to previous draw Performed By: #### 5 0608 #### [facility] [address] MCHC (RBC) [Mass/Vol] 32.3 g/dL Normal 32.0-35.0 [facility] Comment on above: Order Comment: No: D o not add to previous draw Performed By: #### 5 0608 #### [facility] [address] [place] [address], [facility] MCV (RBC) [Entitic vol] 97.7 fL Normal 82.0-98.0 [facility] Comment on above: Order Comment: No: D o not add to previous draw Performed By: #### 5 0608 #### [facility] [address] [place] [address], [facility] Nucleated RBC/100 WBC (Bld) [Ratio] 0 % Normal 0-0 [facility] Comment on above: Order Comment: No: D o not add to previous draw Performed By: #### 5 0608 #### [facility] [address] [place] [address], [place] PLAT CNT 252 10*3/uL Normal 150-400 [facility] Comment on above: Order Comment: No: D o not add to previous draw Performed By: #### 5 0608 #### [facility] [address] [place] [address], [facility] RBC (Bld) [#/Vol] 3.99 10*6/uL Normal 3.80-5.00 [facility] Comment on above: Order Comment: No: D o not add to previous draw Performed By: #### 5 0608 #### [facility] [address] [facility] [place] [address], [facility] WBC (Bld) [#/Vol] 8.04 10*3/uL Normal 4.00-10.60 [facility] Comment on above: Order Comment: No: D o not add to previous draw Performed By: #### 5 0608 #### [facility] [address] [facility]. [address] HEMOGLOBIN A1Con 12-15-2018 HbA1c (Bld) [Mass fraction] 108 mg/dL Normal 70-126 [facility] Comment on above: Order Comment: No: D o not add to previous draw Performed By: #### 8 5123, 58729 #### [facility] [address] [facility] [place] [address], [facility] HbA1c (Bld) [Mass fraction] 5.4 % Normal 4.0-6.0 [facility] Comment on above: Order Comment: No: D o not add to previous draw Performed By: #### 8 5123, 93894 #### [facility] [address] [place] [address], [facility] LIPID PROFILEon 12-15-2018 Cholesterol [Mass/Vol] 138 mg/dL Normal 120-200 [facility] Comment on above: Order Comment: No: D o not add to previous draw Result Comment: CHOL ESTEROL REFERENCE RANGE: 20 YEARS AND OLDER CARDIOVASCULAR RISK Less than 200 mg/dl Low Risk 200 to 239 mg/dl Borderline Risk 240 mg/dl and greater High Risk Performed By: #### 4 6413, 73277, 62933, 09973, 72226 #### [facility] [address] [place] [address], [place] Cholesterol in HDL [Mass/Vol] 36 mg/dL Normal 23-92 [facility] Comment on above: Order Comment: No: D o not add to previous draw Result Comment: Slig ht variation in normal range could be due to gender and/or age. HDL CHOLESTEROL REFERENCE RANGE: 20 years and older Cardiovascular Risk > or =60 mg/dL Desirable 40 TO 59 mg/dL Low Risk <40 mg/dL High Risk Performed By: #### 4 6413, 80204, 10518, 05508, 00393 #### [facility] [address] [place] [address], [place] Cholesterol in LDL [Mass/Vol] 81 mg/dL Normal 0-130 [facility] Comment on above: Order Comment: No: D o not add to previous draw Result Comment: LDL IS A CALCULATION LDL IS ONLY VALID IF THE TRIG IS LESS THAN 400. Performed By: #### 4 6413, 43858, 19635, 05777, 75131 #### [facility] [address] [place] [address], [place] Cholesterol.total/Ch olesterol in HDL [Mass ratio] 3.8 {ratio} Normal .0-4.5 [facility] Comment on above: Order Comment: No: D o not add to previous draw Performed By: #### 4 6413, 23031, 38952, 51107, 18012 #### [facility] [address] [place] [address], [place] NON-HDL CHOLESTEROL 102 mg/dL Normal [facility] Comment on above: Order Comment: No: D o not add to previous draw Performed By: #### 4 6413, 72106, 94602, 61520, 19204 #### [facility] [address] [place] [address], [place] Triglyceride [Mass/Vol] 106 mg/dL Normal 40-149 [facility] Comment on above: Order Comment: No: D o not add to previous draw Result Comment: TRIG LYCERIDE REFERENCE RANGE: 20 YEARS AND OLDER CARDIOVASCULAR RISK LESS THAN 150 mg/dl LOW RISK 150 TO 199 mg/dl BORDERLINE RISK 200 mg/dl AND GREATER HIGH RISK Performed By: #### 4 6413, 26781, 49413, 64409, 98846 #### [facility] [address] [facility] [place], [place] [id number] [place] [address] VLDL CHOL 21 mg/dL Normal 0-40 [facility] Comment on above: Order Comment: No: D o not add to previous draw Performed By: #### 4 6413, 28317, 00761, 85396, 36460 #### [facility] [address] [place], [place] [id number] [place] [address] MAGNESIUM BLOODon 12-15-2018 Magnesium [Mass/Vol] 1.9 mg/dL Normal 1.9-2.7 [facility] Comment on above: Order Comment: No: D o not add to previous draw Performed By: #### 4 6413, 66482, 95917, 77772, 19068 #### [facility] [address] [place], [place] [id number] [place] [address] PHOSPHORUS BLOODon 9 Phosphate [Mass/Vol] 4.5 mg/dL Normal 2.5-5.0 [facility] Comment on above: Order Comment: haider figueroa request Performed By: #### 4 6413, 38123, 75529, 13933, 74432 #### [facility] [address] [place] [address], [facility] PORTABLE CHEST 1 VIEWon 12-05 PORTABLE CHEST 1 VIEW [facility] Department of Radiology [address] [place] [id number] Patient Name: NEREIDA AGOSTO : 1940 Sex: F Age: Race: White Pt. Location: [id number] Patient Status: I Ordered Date: 12/15/2018 2:10:00 [...] failure Electronically signed by:Bharti Bazan. Transcribed by: [email or web address], User Resident: Electronically Signed by: BHARTI BAZAN @ 12/15/2018 03:50 PM Normal [facility] Comment on above: Order Comment: R/O C HF TSH3on 12-15-2018 TSH 3RD GENERATION 0.86 uIU/mL Normal 0.34-5.60 [facility] Comment on above: Performed By: #### 4 6413, 77698, 94096, 67493, 18416 #### [facility] [address] Vital Signs Date Time Vital Sign Value Performing Clinician Clemencia larry 03-15-2024 13:44-0400 Blood Pressure Location Rashi NILL [facility] [place] 03-15-2024 13:44-0400 Diastolic blood pressure 80 mm[Hg] Rashi NILL [facility] [place] 03-15-2024 13:44-0400 Heart rate 76 /min Rashi NILL [facility] [place] 03-15-2024 13:44-0400 Respiratory rate 16 /min Rashi NILL [facility] [place] 03-15-2024 13:44-0400 Systolic blood pressure 118 mm[Hg] Rashi NILL [facility] 02-02-2023 14:45-0400 Blood Pressure Location Rashi NILL [facility] [place] 02-02-2023 14:45-0400 Diastolic blood pressure 76 mm[Hg] Rashi NILL [facility] [place] 02-02-2023 14:45-0400 Heart rate 74 /min Rashi NILL [facility] [place] 02-02-2023 14:45-0400 Respiratory rate 16 /min Rashi NILL [facility] [place] 02-02-2023 14:45-0400 Systolic blood pressure 126 mm[Hg] Rashi NILL [facility] Encounters Encounter Date Encounter Type Care Provider Facility Start: 03-15-2024 End: 03-15-2024 ambulatory Rashi JOHN Facility:[facility] Start: 03-15-2024 End: 03-15-2024 Patient encounter procedure Rashi JOHN [facility] Start: 02-07-2024 End: 02-07-2024 ambulatory GOLDIE WALDROP [facility] Start: 10-28-2023 End: 10-28-2023 ambulatory KHANG LORENZO [facility] Start: 08-05-2023 End: 08-05-2023 ambulatory ROD AGUAYO Not Available Start: 03-05-2023 End: 03-05-2023 Patient encounter procedure Rashi JOHN [facility] Start: 02-19-2023 End: 02-19-2023 [facility] Start: 02-02-2023 End: 02-02-2023 Patient encounter procedure Rashi JOHN [facility] [place] Start: 01-21-[address] JACINTO SERVIN . Facili ty:[facility] Start: 01-19-2023 End: 01-19-[address] JACINTO SERVIN . Facility: Start: 01-18-2023 End: 01-19-[address] JACINTO SERVIN . Facility: Start: 01-20-2022 End: 01-21-[address] JACINTO SERVIN . Facility: Start: 12-23-2018 End: 12-24-2018 Patient encounter procedure GOLDIE WALDROP Facility:[facility] Start: 12-15-2018 End: 12-16-2018 Evaluation and management of inpatient PETER LEE Facility:[facility] Procedures Date Procedure Procedure Detail Performing Clinician Start: 02-24-2023 Colonoscopy Rashi CORRIGAN Start: 12-15-2018 FLUOROSCOPY OF MULTI PLE CORONARY ARTERIES USING OTH CONTRAST JJ CANO Start: 12-15-2018 MEASURE CARDIAC SAMP L \T\ PRESSURE, BILATERAL, PERC JJ CANO Start: 12-15-2018 MEASUREMENT OF ARTER IAL FLOW, PULMONARY, PERC APPROACH JJ CANO Cardiac fluoroscopy Rashi JOHN Closed fracture of h ip (disorder) Rashi JOHN Ligation of fallopian tube Gal JOHN Immunizations Immunization Date Immunization Notes Care Provider Rusty morales 07-21-2022 influenza virus vaccine, unspecified formulation Rashi JOHN [facility] [place] 08-28-2021 SARS-CoV-2 (COVID-19 ) mRNA-1273 vaccine Rashi CAMARAL [facility] [place] 11-14-2020 SARS-CoV-2 (COVID-19 ) mRNA-1273 vaccine Rashi CAMARAL [facility] [place] 10-18-2020 SARS-CoV-2 (COVID-19 ) mRNA-1273 vaccine Rashi JOHN [facility] [place] Payers Date Payer Category Payer [employer] [id number] 2018 [employer] [id number] 1959 [employer] [id number] 1957 Medicare [id number] 1940 Unknown [id number] 1940 Unknown [id number] 1940 Unknown [id number] 1940 Unknown [id number] 1940 Unknown [id number] 1940 Unknown [id number] 1940 Unknown [id number] 1940 Unknown [id number] Social History Date Type Detail Facility Start: 02-02-2023 End: 03-15-2024 Tobacco smoking status Ex-smoker (finding) [facility] Tobacco smoking status Never [facility] Sex Assigned At Female [facility] Functional Status Date Assessment Result Facility 03-15-2024 Functional Status N/A [facility] [place] 02-02-2023 Functional Status N/A [facility] Progress note 02-07-2024 Note Date & Type Note Facility 02-07-2024 Note [facility] Cardiology Clinic Note Chief Complaint: Patient here for 4 mo follow up Takotsubo cardiomyopathy, PAF, HTN, and mitral valve regurgitation. Jasmina Lorenzo CNP reduced her lisinopril down to 10mg daily at last visit in Oct 2023. Says her lightheadedness is improving since then. She had echo in November 2023. C/o worsening SOB w/ exertion and fatigue. She denies chest pain, LE edema, and bleeding on Eliquis. HPI: Nereida Agosto is a 83 y.o. 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 He has no new symptoms Despite abnormal pulmonary function tests, she was apparently not started on any inhalers. She also tells me that she hears herself wheeze but it last for seconds and resolves. No angina, no orthopnea, no paroxysmal, dyspnea, no lower extremity edema. Cardiology ROS: Review of Systems Constitutional: Positive for malaise/fatigue. Cardiovascular: Positive for dyspnea on exertion (worsening) and palpitations ( sometimes ). Neurological: Positive for dizziness (better) and light-headedness (better). All other systems reviewed and are negative. Past Medical History She has a past medical history of Abnormal ECG, Arrhythmia, Atrial fibrillation (CMS/HCC), Hypertension, Hypothyroidism, and Takotsubo cardiomyopathy. Surgical History She has a past surgical history that includes Cardiac catheterization (12/15/2018) and Hip surgery. Social History She reports that she has quit smoking. Her smoking use included cigarettes. She has never used smokeless tobacco. She reports current alcohol use. No history on file for drug use. Family History Family History Problem Relation Name Age of Onset No Known Problems Mother No Known Problems Father Allergies Sulfa (sulfonamide antibiotics) Medications Current Outpatient Medications: alendronate (Fosamax) 70 [...] , Rfl: lisinopril 20 mg tablet, Take 0.5 tablets (10 mg) by mouth in the morning., Disp: 90 tablet, Rfl: 3 meclizine (Antivert) 25 mg tablet, Take 25 mg by mouth if needed., Disp: , Rfl: spironolactone (Aldactone) 25 mg tablet, Take 0.5 tablets (12.5 mg) by mouth in the morning., Disp: 90 tablet, Rfl: 3 Last Recorded Vitals BP 112/74 (BP Location: Left arm, Patient Position: Sitting) Pulse 78 Ht 1.499 m (4' 11 ) Wt 71.2 kg (157 lb) SpO2 93% BMI 31.71 kg/m??? Physical Examination: GENERAL: alert and oriented x3, well developed, in no acute distress. HEAD: atraumatic, normocephalic. EYES: HIRAM, EOMI. NECK: trachea midline, no JVD present, no carotid bruits present. CARDIAC: S1, S2 present. RRR. No murmur, rubs, or gallops. RESPIRATORY: CTAB, no increased effort of breathing, no rales, rhonchi, or wheezing. ABDOMEN: soft, nontender, nondistended. EXTREMITIES: no lower extremity edema, peripheral pulses are 2+ bilaterally. No rash/skin discoloration present. NEURO: strength/sensation equal and symmetric in bilateral upper and lower extremities. PSYCH: appropriate mood, affect, and judgement. Pulmonary function tests 05/16/2021 Impressions: Spirometry trends towards moderate obstruction with normal lung volumes and mild diffusion impairment, suggesting underlying COPD/emphysema. When compared to prior pulmonary function tests, there is improvement in lung volumes and diffusion capacity. Clinical correlation required. Echocardiogram 11/18/2023: Conclusion: Global left ventricular systolic function is normal; visually estimated ejection fraction is 55 to 60% 2. Normal right ventricular size and systolic function 3. Biatrial enlargement Mild to moderate mitral regurgitation was seen in 07/2023 JEANNA (12/16/2018) Global left ventricular systolic function is severely reduced (Visually estimated EF 30-35%). Segmental wall motion abnormalities. Right ventricular systolic function appears reduced. The right ventricle is enlarged. The left atrium is moderately enlarged. No thrombus in left atrium. The right atrium appears enlarged. Mild aortic valve regurgitation. Mild atherosclerotic plaque is seen in (more content not included)... [facility] Progress note 10-28-2023 Note Date & Type Note Facility 10-28-2023 Note [facility] [place] [facility] Note SUBJECTIVE No chief complaint on [...] 4.9, GFR 47 (more content not included)... [facility] Progress note 10-28-2023 Note Date & [...] All other systems reviewed and are negative. [facility] Progress note 08-05-2023 Note Date & [...] All other systems reviewed and are negative. [facility] Progress note 08-05-2023 Note Date & [...] aorta. - Succes (more content not included)... [facility] Progress note 02-19-2023 Note Date & [...] 08/21/2023). Flaquito Rojas (more content not included)... [facility] Evaluation + Plan note Note Date & Type Note Facility Evaluation + Plan note No data available for this section [facility] [place] [facility] Discharge instructions Note Date & Type Note Facility Hospital Discharge instructions No data available for this section [facility] [place] Progress note Note Date & Type Note Facility Progress note No data available for this section [facility] [place] Summary Purpose Family History No Family History Records FoundNo Family History Records FoundNo Family History Records FoundNo Family History Records FoundNo Family History Records Found No data available for this section Advance Directives No Advanced Directives Records FoundNo Advanced Directives Records FoundNo Advanced Directives Records FoundNo Advanced Directives Records FoundNo Advanced Directives Records Found Hospital Course Note MR#: [id number] [facility] Pt. Name: Nereida Agosto Admitted: 12/15/2018 [...] was sent to the ER. Apparently in [facility], the patient was found to have decompensated heart failure with new onset of atrial fibrillation. She was in rapid ventricular response. The patient was admitt (more content not included)... Additional Source Comments INFORMATION SOURCE (unrecogn ized section and content) DATE CREATED AUTHOR 04/29/2019 [facility] DATE CREATED AUTHOR AUTHOR'S ORGANIZ ATION 01/19/2023 [facility] DATE CREATED AUTHOR AUTHOR'S ORGANIZ ATION 08/08/[address] [facility] EPIC DATE CREATED AUTHOR AUTHOR'S ORGANIZ ATION 02/07/2024 [facility] DATE CREATED AUTHOR AUTHOR'S ORGANIZ ATION 03/21/[address] [place] [address] Patient Care team informatio n (unrecognized section and content) Personnel Name: Jacinto Servin MD Address: Address: [address] [place] [address] Personnel Name: Jacinto Servin MD Address: Address: [address] [place] [address] Personnel Name: Jacinto Servin MD Address: Address: [address] [place] [address] FOR RECORDS PERTAINING TO PATIENTS WHO ARE [...] BE BASED ON THE PRIMARY CLINICAL RECORDS. [employer] provides no warranty or guarantee of the accuracy or completeness of information in this document.
[2024-04-03 15:07] LABS: Age Gdln ACOG Testing Note (.); Pap IG (Image Guided) Note (.)
== END 2024-03-29 18:27 | disposition home or self-care (01) ==
LOC: LAB 18:26
PROVIDERS: PCP Family Medicine; Visit Provider Physician Assistant
DX: Z01.419 Encounter for gynecological examination (general) (routine) without abnormal findings (principal)
CPT/HCPCS: 88175

== ENCOUNTER 2024-04-03 07:38 | Outpatient (OUT) | payer MEDICARE, OTHER, SELFPAY ==
--- NOTE | 2024-04-03 07:42 | XR_ITS ---
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 FINDINGS: SPINE ANALYSIS: Average bone mineral density is 1.046 g/cm2. T-score (standard deviation relative to young adult mean): -1.1 . (Not previously evaluated.) HIP ANALYSIS: Lowest bone mineral density is within the right femoral neck, 0.680 g/cm2. T-score (standard deviation relative to young adult mean): -2.6 . -0.7% change since prior study. XR/XR DEXA axial skeleton IMPRESSION: World Health Organization Classification: Osteoporosis - High Fracture Risk FRAX: Not able to calculate. Pharmacologic treatment recommendations * No uniform recommendation applies to all patients. Management plans must be individualized. * Consider initiating pharmacologic treatment in postmenopausal women and men >= 50 years of age who have the following: Primary fracture prevention: * T-score <= - 2.5 at the femoral neck, total hip, lumbar spine, 33% radius (some uncertainty with existing data) by DXA. * Low bone mass (osteopenia: T-score between - 1.0 and - 2.5) at the femoral neck or total hip by DXA with a 10-year hip fracture risk >= 3% or a 10-year major osteoporosis-related fracture risk >= 20% (i.e., clinical vertebral, hip, forearm, or proximal humerus) based on the [place]-adapted FRAXregistered model. Secondary fracture prevention: * Fracture of the hip or vertebra regardless of BMD [4, 5]. * Fracture of proximal humerus, pelvis, or distal forearm in persons with low bone mass (osteopenia: T-score between - 1.0 and - 2.5). The decision to treat should be individualized in persons with a fracture of the proximal humerus, pelvis, or distal forearm who do not have osteopenia or low BMD [12, 13]. Jovany MS, Cesar SL, Brandee KL, Vita EM, Melba KG, AJ, Mitali ES. The clinician's guide to prevention and treatment of osteoporosis. Osteoporos Int. 2021;33(10):1871-9540. doi: 10.1007/w24759-368-65674-h. Epub 2021Jan 01. Erratum in: Osteoporos Int. 2021Apr 02;: PMID: [id number]; PMCID: [id number]. Electronically authenticated by: DUDLEY RYDER Date: 04/03/2024 09:09
--- OUTSIDE RECORDS SUMMARY | 2024-04-03 07:43 | XMS_ITS | CCD ---
Author Organization [facility] Care Team Providers Care Nurse Instructor Name Role Phone PETER LEE Referring Unavailable JACINTO SERVIN Primary Care Unavailable CHAPITO SHIPLEY Attending Unavailable CHAPITO SHIPLEY Admitting Unavailable [place] Procedure Practitioner Unavailab JJ Rendon Surgeon Unavailable [...] Unavailable HOY ., DR CASEY Attending Unavailable [place], DR KELSI Aguirre Consulting Unavailable SVETAEBER, DR [...] Drug allergy Unknown (qualifier value) General Surgery [place] (1 source) Sulfonamides (Antibiotic); Translations: [SULFA (SULFONAMIDE ANTIBIOTICS)] Propensity to adverse reactions to drug (disorder) 2 [facility] Repository (1 source) ALPRAZolam; Translations: [Xanax] Drug Allergy [facility] Repository Medications Current Medications Medication Drug Class(es) [...] 03-15-2024 Ambulatory Visit Summary Ambulatory Visit Summary NEERIDA AGOSTO :1940 Visit Date:03/15/2024 Ambulatory Visit Instructions Your Diagnosis Personal history of colonic polyps Your Care Team Attending Physician - ALVARO AHMAID, Rashi Lee Primary Care Physician - Jacinto [...] choosing us for your care. Alina Henry [facility] General Surgery Office/Clini c Noteon 03-15-2024 General [...] Family Hist (more content not included)... Normal [facility] Comment on above: Result Comment: Elec tronically Signed By: ALVARO AHMADI, Rashi Weaver\Date and Time Signed: 03/15/24 14:08 EDT Office Visiton 02-07-2024 Follow-up visit [id number] Nereida Agosto 1940 F Date Provider Department Center 02/07/2024 GOLDIE PELAEZ KIM Cook Family History Problem Relation Age of Onset No Known Problems Mother No Known Problems Father Family Status - Relation Status Age at Mother Father Level of Service:90909 [place] OFFICE/OUTPATIENT ESTABLISHED LOW MDM 20 MIN Normal [facility] Office Visiton 10-28-2023 Follow-up visit [id number] Nereida Agosto 1940 F Date Provider Department Center 10/28/2023 KHANG SALEH KIM Cook Family History Problem Relation Age of Onset No Known Problems Mother No Known Problems Father Family Status - Relation Status Age at Mother Father Level of Service:25505 [place] OFFICE/OUTPATIENT ESTABLISHED MOD MDM 30 MIN Reason for Visit and Comments: Congestive Heart Failure [127] Dizziness [165106] Normal [facility] Office Visiton 08-05-2023 Follow-up visit [id number] Nereida Agosto P 1940 F Date Provider Department Center 08/05/2023 [id number] MAN Anneliese Hos Family History Problem Relation Age of Onset No Known Problems Mother No Known Problems Father Family Status - Relation Status Age at Mother Father Level of Service:65014 [place] OFFICE/OUTPATIENT ESTABLISHED MOD MDM 30-39 MIN [facility] Office Visiton 02-19-2023 Follow-up visit [id number] Nereida Agosto P 1940 Date Provider Department Center 02/19/2023 [id number] ANAYA Anneliese Hos Family History Problem Relation Age of Onset No Known Problems Mother No Known Problems Father Family Status - Relation Status Age at Mother Father Level of Service:02502 CA OFFICE/OUTPATIENT ESTABLISHED MOD MDM 30-39 MIN Reason for Visit and Comments: Follow-up [465883] - Pt is here for sx clearance scheduled for echo 02/17 [facility] OCC BLD IMMUNO SCREENon 01-04 OCCULT BLOOD Positive Abnormal NEGATIVE [facility] Comment on above: Performed By: #### O BSCRN #### [facility] [address] [place] [address] Dr. Dinah Rodriges CBC AUTO DIFFon 01-18-2023 BASO # 0.0 103/ul Normal 0.0-0.1 [facility] Comment on above: Performed By: #### C BC #### [facility] [address] [place] [address] Dr. Dinah Rodriges Basophils/100 WBC (Bld) 0.6 % Normal 0.2-2.0 [facility] Comment on above: Performed By: #### C BC #### [facility] [address] [place] [address] Dr. Dinah Rodriges EO # 0.1 103/ul Normal 0.0-0.7 [facility] Comment on above: Performed By: #### C BC #### [facility] [address] [place] [address] Dr. Dinah Rodriges Eosinophils/100 WBC (Bld) 1.8 % Normal 0.9-7.0 [facility] Comment on above: Performed By: #### C BC #### [facility] [address] [place] [address] Dr. Dinah Rodriges Erythrocyte distribution width (RBC) [Ratio] 12.7 % Normal 11.0-15.0 [facility] Comment on above: Performed By: #### C BC #### [facility] [address] [place] [address] Dr. Dinah Rodriges Hematocrit (Bld) [Volume fraction] 39.7 % Normal 36.0-48.0 [facility] Comment on above: Performed By: #### C BC #### [facility] [address] [place] [address] Dr. Dinah Rodriges Hemoglobin (Bld) [Mass/Vol] 12.6 g/dL Normal 12.0-16.0 [facility] Comment on above: Performed By: #### C BC #### [facility] [address] [place] [address] Dr. Dinah Rodriges IG # 0.01 10e3/ul Normal 0.00-0.03 [facility] Comment on above: Performed By: #### C BC #### [facility] [address] [place] [address] Dr. Dinah Rodriges IG % 0.2 % Normal 0.0-0.5 [facility] Comment on above: Performed By: #### C BC #### [facility] [address] [place] [address] Dr. Dinah Rodriges LYMPH # 1.5 103/ul Normal 1.2-3.8 [facility] Comment on above: Performed By: #### C BC #### [facility] [address] [place] [address] Dr. Dinah Rodriges Lymphocytes/100 WBC (Bld) 28.7 % Normal 20.5-60.0 [facility] Comment on above: Performed By: #### C BC #### [facility] [address] [place] [address] Dr. Dinah Rodriges MANUAL DIFF REQ NO Normal [facility] Comment on above: Performed By: #### C BC #### [facility] [address] [place] [address] Dr. Dinah Rodriges MCH (RBC) [Entitic mass] 30.7 pg Normal 26.7-34.0 [facility] Comment on above: Performed By: #### C BC #### [facility] [address] [place] [address] Dr. Dinah Rodriges MCHC (RBC) [Mass/Vol] 31.7 g/dL Normal 29.9-35.2 [facility] Comment on above: Performed By: #### C BC #### [facility] [address] [place] [address] Dr. Dinah Rodriges MCV (RBC) [Entitic vol] 96.8 fL Normal 81.0-99.0 [facility] Comment on above: Performed By: #### C BC #### [facility] [address] [place] [address] Dr. Dinah Rodriges MONO # 0.4 103/ul Normal 0.3-0.8 [facility] Comment on above: Performed By: #### C BC #### [facility] [address] [place] [address] Dr. Dinah Rodriges Monocytes/100 WBC (Bld) 7.3 % Normal 1.7-12.0 [facility] Comment on above: Performed By: #### C BC #### [facility] [address] [place] [address] Dr. Dinah Rodriges NEUT # 3.1 103/ul Normal 1.4-6.5 [facility] Comment on above: Performed By: #### C BC #### [facility] [address] [place] [address] Dr. Dinah Rodriges Neutrophils/100 WBC (Bld) 61.4 % Normal 43.0-75.0 [facility] Comment on above: Performed By: #### C BC #### [facility] [address] [place] [address] Dr. Dinah Rodriges Platelet mean volume (Bld) [Entitic vol] 9.7 fL Normal 9.5-13.5 [facility] Comment on above: Performed By: #### C BC #### [facility] [address] [address] [address] Dinah Rodriges PLT 163 103/ul Normal 150-450 [facility] Comment on above: Performed By: #### C BC #### [facility] [address] [address] [address] Dinah Rodriges RBC 4.10 106/ul Critically low 4.20-5.40 [facility] Comment on above: Performed By: #### C BC #### [facility] [address] [address] [address] Dinah Rodriges WBC 5.1 103/ul Normal 4.0-11.0 [facility] Comment on above: Performed By: #### C BC #### [facility] [address] [address] [address] Dinah Rodriges FREE T3on 01-18-2023 FREE T3 2.11 pg/mlL Critically low 2.18-3.98 [facility] Comment on above: Performed By: #### C MP, TSH, T4, LIPID, FT3 #### [facility] [address] [address] [address] Dinah Rodriges GLYCOHEMOGLOBIN A1Con 2022 ADA RECOMMENDATION SEE BELOW Normal [facility] Comment on above: Result Comment: ADA RECOMMENDED LIMIT 4.0 - 6.0 ADA THERAPEUTIC TARGET < 7.0 ACTION SUGGESTED > 7.0 Performed By: #### A 1C ####[facility] [id number] [address]Dr. Dinah Rodriges Glucose [Mass/Vol] 105 mg/dL Normal [facility] Comment on above: Performed By: #### A 1C ####[facility] [address] [id number]. Dinah Rodriges HbA1c (Bld) [Mass fraction] 5.3 % Normal 4.5-6.2 [facility] Comment on above: Performed By: #### A 1C ####[facility] [id number] [address]Dr. Dinah Rodriges LIPID PROFILEon 01-18-2023 CHOL-HDL RATIO NORM SEE BELOW Normal [facility] Comment on above: Result Comment: 3.3 - 4.4 LOW RISK 4.4 - 7.1 AVERAGE RISK 7.1 - 11.0 MODERATE RISK >11.0 HIGH RISK Performed By: #### C MP, TSH, T4, LIPID, FT3 #### [facility] [address] [address] [address] Dinah Rodriges Cholesterol [Mass/Vol] 168 mg/dL Normal <=200 [facility] Comment on above: Performed By: #### C MP, TSH, T4, LIPID, FT3 #### [facility] [address] [address] [address] Dinah Rodriges Cholesterol in HDL [Mass/Vol] 61 mg/dL Critically high 40-60 [facility] Comment on above: Performed By: #### C MP, TSH, T4, LIPID, FT3 #### [facility] [address] [address] [address] Dinah Rodriges Cholesterol in LDL [Mass/Vol] 94.0 mg/dL Normal [facility] Comment on above: Performed By: #### C MP, TSH, T4, LIPID, FT3 #### [facility] [address] [address] [address] Dinah Rodriges Cholesterol.total/Ch olesterol in HDL [Mass ratio] 2.8 {ratio} Normal [facility] Comment on above: Performed By: #### C MP, TSH, T4, LIPID, FT3 #### [facility] [address] [address] [address] Dinah Rodriges HDL NORMAL > or = 60 mg/dl - LOW CARDIOVASCULAR RISK <40 mg/dl - HIGH CARDIOVASCULAR RISK Normal [facility] Comment on above: Performed By: #### C MP, TSH, T4, LIPID, FT3 #### [facility] [address] [address] [address] Dinah Rodriges LDL CALC NORMAL SEE BELOW Normal [facility] Comment on above: Result Comment: <100 mg/dl OPTIMAL 100 - 129 mg/dl NEAR OR ABOVE OPTIMAL 130 - 159 mg/dl BORDERLINE HIGH 160 - 189 mg/dl HIGH >190 mg/dl VERY HIGH Performed By: #### C MP, TSH, T4, LIPID, FT3 #### [facility] [address] [address] [address] Dinah Rodriges Triglyceride [Mass/Vol] 65 mg/dL Normal <=150 [facility] Comment on above: Performed By: #### C MP, TSH, T4, LIPID, FT3 #### [facility] [address] [address] [address] Dinah Rodriges VLDL CALC 13.0 mg/dL Normal [facility] Comment on above: Performed By: #### C MP, TSH, T4, LIPID, FT3 #### [facility] [address] [address] [address] Dinah Rodriges PROF 14(COMP METB)on 023 Albumin [Mass/Vol] 3.4 g/dL Normal 3.4-5.0 [facility] Comment on above: Performed By: #### C MP, TSH, T4, LIPID, FT3 #### [facility] [address] [address] [address] Dinah Rodriges Albumin/Globulin [Mass ratio] 1.0 {ratio} Normal [facility] Comment on above: Performed By: #### C MP, TSH, T4, LIPID, FT3 #### [facility] [address] [address] [address] Dinah Rodriges ALP [Catalytic activity/Vol] 59 U/L Normal 46-116 [facility] Comment on above: Performed By: #### C MP, TSH, T4, LIPID, FT3 #### [facility] [address] [address] [address] Dinah Rodriges ALT [Catalytic activity/Vol] 13 U/L Critically low 14-59 [facility] Comment on above: Performed By: #### C MP, TSH, T4, LIPID, FT3 #### [facility] [address] [address] [address] Dinah Rodriges Anion gap [Moles/Vol] 10.7 mmol/L Normal [facility] Comment on above: Performed By: #### C MP, TSH, T4, LIPID, FT3 #### [facility] [address] [place] [address] Dr. Dinah Rodriges AST [Catalytic activity/Vol] 14 U/L Critically low 15-37 [facility] Comment on above: Performed By: #### C MP, TSH, T4, LIPID, FT3 #### [facility] [address] [place] [address] Dr. Dinah Rodriges Bilirubin [Mass/Vol] 0.3 mg/dL Normal 0.2-1.0 [facility] Comment on above: Performed By: #### C MP, TSH, T4, LIPID, FT3 #### [facility] [address] [place] [address] Dr. Dinah Rodriges Calcium [Mass/Vol] 9.4 mg/dL Normal 8.5-10.1 [facility] Comment on above: Performed By: #### C MP, TSH, T4, LIPID, FT3 #### [facility] [address] [place] [address] Dr. Dinah Rodriges Chloride [Moles/Vol] 106 mmol/L Normal 98-107 [facility] Comment on above: Performed By: #### C MP, TSH, T4, LIPID, FT3 #### [facility] [address] [place] [address] Dr. Dinah Rodriges CO2 [Moles/Vol] 31.9 mmol/L Normal 21.0-32.0 [facility] Comment on above: Performed By: #### C MP, TSH, T4, LIPID, FT3 #### [facility] [address] [place] [address] Dr. Dinah Rodriges Creatinine [Mass/Vol] 0.95 mg/dL Normal 0.55-1.02 [facility] Comment on above: Performed By: #### C MP, TSH, T4, LIPID, FT3 #### [facility] [address] [place] [address] Dr. Dinah Rodriges EGFR-AF CITIZEN [place] >60 Normal >=60 [facility] Comment on above: Performed By: #### C MP, TSH, T4, LIPID, FT3 #### [facility] [address] [place] [address] Dr. Dinah Rodriges EGFR-NON AF CITIZEN [place] 57 mL/min/1.73m2 Critically low >=60 [facility] Comment on above: Performed By: #### C MP, TSH, T4, LIPID, FT3 #### [facility] [address] [place] [address] Dr. Dinah Rodriges Globulin (S) [Mass/Vol] 3.4 g/dL Normal [facility] Comment on above: Performed By: #### C MP, TSH, T4, LIPID, FT3 #### [facility] [address] [place] [address] Dr. Dinah Rodriges Glucose [Mass/Vol] 88 mg/dL Normal 74-106 [facility] Comment on above: Performed By: #### C MP, TSH, T4, LIPID, FT3 #### [facility] [address] [place] [address] Dr. Dinah Rodriges Potassium [Moles/Vol] 4.6 mmol/L Normal 3.5-5.1 [facility] Comment on above: Performed By: #### C MP, TSH, T4, LIPID, FT3 #### [facility] [address] [place] [address] Dr. Dinah Rodriges Protein [Mass/Vol] 6.8 g/dL Normal 6.4-8.2 [facility] Comment on above: Performed By: #### C MP, TSH, T4, LIPID, FT3 #### [facility] [address] [place] [address] Dr. Dinah Rodriges Sodium [Moles/Vol] 144 mmol/L Normal 136-145 [facility] Comment on above: Performed By: #### C MP, TSH, T4, LIPID, FT3 #### [facility] [address] [place] [address] Dr. Dinah Rodriges Urea nitrogen [Mass/Vol] 18.0 mg/dL Normal 7.0-18.0 [facility] Comment on above: Performed By: #### C MP, TSH, T4, LIPID, FT3 #### [facility] [address] [place] [address] Dr. Dinah Rodriges Urea nitrogen/Creatinine [Mass ratio] 18.9 mg/mg Normal [facility] Comment on above: Performed By: #### C MP, TSH, T4, LIPID, FT3 #### [facility] [address] [place] [address] Dr. Dinah Rodriges T4on 01-18-2023 T4 [Mass/Vol] 9.30 ug/dL Normal 4.80-13.90 [facility] Comment on above: Performed By: #### C MP, TSH, T4, LIPID, FT3 #### [facility] [address] [place] [address] Dr. Dinah Rodriges TSHon 01-18-2023 TSH 0.872 uIU/mL Normal 0.358-3.740 [facility] Comment on above: Performed By: #### C MP, TSH, T4, LIPID, FT3 #### [facility] [address] [place] [address] Dr. Dinah Rodriges BNPon 01-20-2022 Natriuretic peptide B (Bld) [Mass/Vol] 464.0 pg/mL Normal <=1,800.0 [facility] Comment on above: Performed By: #### T SH, BNP, T7, LIPID, CMP ####[facility] [id number] [address]Dr. Dinah Rodriges CBC AUTO DIFFon 01-20-2022 BASO # 0.0 103/ul Normal 0.0-0.1 [facility] Comment on above: Performed By: #### C BC #### [facility] [address] [place] [address] Dr. Dinah Rodriges Basophils/100 WBC (Bld) 0.4 % Normal 0.2-2.0 [facility] Comment on above: Performed By: #### C BC #### [facility] [address] [place] [address] Dr. Dinah Rodriges EO # 0.1 103/ul Normal 0.0-0.7 [facility] Comment on above: Performed By: #### C BC #### [facility] [address] [place] [address] Dr. Dinah Rodriges Eosinophils/100 WBC (Bld) 1.9 % Normal 0.9-7.0 [facility] Comment on above: Performed By: #### C BC #### [facility] [address] [place] [address] Dr. Dinah Rodriges Erythrocyte distribution width (RBC) [Ratio] 12.7 % Normal 11.0-15.0 [facility] Comment on above: Performed By: #### C BC #### [facility] [address] [place] [address] Dr. Dinah Rodriges Hematocrit (Bld) [Volume fraction] 35.0 % Critically low 36.0-48.0 [facility] Comment on above: Performed By: #### C BC #### [facility] [address] [place] [address] Dr. Dinah Rodriges Hemoglobin (Bld) [Mass/Vol] 11.5 g/dL Critically low 12.0-16.0 [facility] Comment on above: Performed By: #### C BC #### [facility] [address] [place] [address] Dr. Dinah Rodriges IG # 0.01 10e3/ul Normal 0.00-0.03 [facility] Comment on above: Performed By: #### C BC #### [facility] [address] [place] [address] Dr. Dinah Rodriges IG % 0.2 % Normal 0.0-0.5 [facility] Comment on above: Performed By: #### C BC #### [facility] [address] [place] [address] Dr. Dinah Rodriges LYMPH # 1.4 103/ul Normal 1.2-3.8 [facility] Comment on above: Performed By: #### C BC #### [facility] [address] [place] [address] Dr. Dinah Rodriges Lymphocytes/100 WBC (Bld) 26.9 % Normal 20.5-60.0 [facility] Comment on above: Performed By: #### C BC #### [facility] [address] [place] [address] Dr. Dinah Rodriges MANUAL DIFF REQ NO Normal [facility] Comment on above: Performed By: #### C BC #### [facility] [address] [place] [address] Dr. Dinah Rodriges MCH (RBC) [Entitic mass] 33.0 pg Normal 26.7-34.0 [facility] Comment on above: Performed By: #### C BC #### [facility] [address] [place] [address] Dr. Dinah Rodriges MCHC (RBC) [Mass/Vol] 32.9 g/dL Normal 29.9-35.2 [facility] Comment on above: Performed By: #### C BC #### [facility] [address] [place] [address] Dr. Dinah Rodriges MCV (RBC) [Entitic vol] 100.3 fL Critically high 81.0-99.0 [facility] Comment on above: Performed By: #### C BC #### [facility] [address] [place] [address] Dr. Dinah Rodriges MONO # 0.4 103/ul Normal 0.3-0.8 [facility] Comment on above: Performed By: #### C BC #### [facility] [address] [place] [address] Dr. Dinah Rodriges Monocytes/100 WBC (Bld) 7.6 % Normal 1.7-12.0 [facility] Comment on above: Performed By: #### C BC #### [facility] [address] [place] [address] Dr. Dinah Rodriges NEUT # 3.3 103/ul Normal 1.4-6.5 [facility] Comment on above: Performed By: #### C BC #### [facility] [address] [place] [address] Dr. Dinah Rodriges Neutrophils/100 WBC (Bld) 63.0 % Normal 43.0-75.0 [facility] Comment on above: Performed By: #### C BC #### [facility] [address] [place], [place] [address] Dr. Dinah Rodriges Platelet mean volume (Bld) [Entitic vol] 10.0 fL Normal 9.5-13.5 [facility] Comment on above: Performed By: #### C BC #### [facility] [address] [address] [address] Dinah Rodriges PLT 165 103/ul Normal 150-450 [facility] Comment on above: Performed By: #### C BC #### [facility] [address] [address] [address] Dinah Rodriges RBC 3.49 106/ul Critically low 4.20-5.40 [facility] Comment on above: Performed By: #### C BC #### [facility] [address] [address] [address] Dinah Rodriges WBC 5.3 103/ul Normal 4.0-11.0 [facility] Comment on above: Performed By: #### C BC #### [facility] [address] [address] [address] Dinah Rodriges FREE THYROXINE INDEX T7on FTI 3.37 Normal 1.30-4.50 [facility] Comment on above: Performed By: #### T SH, BNP, T7, LIPID, CMP ####[facility] [id number] [id number]. Dinah Rodriges T3U 34.0 % Normal 30.0-39.0 [facility] Comment on above: Performed By: #### T SH, BNP, T7, LIPID, CMP ####[facility] [id number] [place], [place] [address]RiDr. Dinah Rodriges T4 [Mass/Vol] 9.90 ug/dL Normal 4.80-13.90 [facility] Comment on above: Performed By: #### T SH, BNP, T7, LIPID, CMP ####[facility] [id number] [id number]. Dinah Rodriges GLYCOHEMOGLOBIN A1Con 2021 ADA RECOMMENDATION SEE BELOW Normal [facility] Comment on above: Result Comment: ADA RECOMMENDED LIMIT 4.0 - 6.0 ADA THERAPEUTIC TARGET < 7.0 ACTION SUGGESTED > 7.0 Performed By: #### A 1C ####[facility] [address] [address]Dr. Dinah Rodriges Glucose [Mass/Vol] 103 mg/dL Normal [facility] Comment on above: Performed By: #### A 1C ####[facility] [address] [address]Dr. Dinah Rodriges HbA1c (Bld) [Mass fraction] 5.2 % Normal 4.5-6.2 [facility] Comment on above: Performed By: #### A 1C ####[facility] [address] [place], [place] [address]Dr. Dinah Rodriges IRONon 01-20-2022 Iron [Mass/Vol] 79.0 ug/dL Normal 50.0-170.0 [facility] Comment on above: Performed By: #### I KINZA ####[facility] [address] [place], [place] [address]Dr. Dinah Rodriges LIPID PROFILEon 01-20-2022 CHOL-HDL RATIO NORM SEE BELOW Normal [facility] Comment on above: Result Comment: 3.3 - 4.4 LOW RISK 4.4 - 7.1 AVERAGE RISK 7.1 - 11.0 MODERATE RISK >11.0 HIGH RISK Performed By: #### T SH, BNP, T7, LIPID, CMP ####[facility] [address] [place], [place] [address]Dr. Dinah Rodriges Cholesterol [Mass/Vol] 153 mg/dL Normal <=200 [facility] Comment on above: Performed By: #### T SH, BNP, T7, LIPID, CMP ####[facility] [address] [place], [place] [address]Dr. Dinah Antelmo Cholesterol in HDL [Mass/Vol] 54 mg/dL Normal 40-60 [facility] Comment on above: Performed By: #### T SH, BNP, T7, LIPID, CMP ####[facility] [address] [place], [place] [address]Dr. Dinah Rodriges Cholesterol in LDL [Mass/Vol] 78.8 mg/dL Normal [facility] Comment on above: Performed By: #### T SH, BNP, T7, LIPID, CMP ####[facility] [address] [place] [address]Dr. Dinah Rodriges Cholesterol.total/Ch olesterol in HDL [Mass ratio] 2.8 {ratio} Normal [facility] Comment on above: Performed By: #### T SH, BNP, T7, LIPID, CMP ####[facility] [address] [place] [address]Dr. Dinah Rodriges HDL NORMAL > or = 60 mg/dl - LOW CARDIOVASCULAR RISK <40 mg/dl - HIGH CARDIOVASCULAR RISK Normal [facility] Comment on above: Performed By: #### T SH, BNP, T7, LIPID, CMP ####[facility] [address] [place] [address]Dr. Dinah Rodriges LDL CALC NORMAL SEE BELOW Normal The [facility] Comment on above: Result Comment: <100 mg/dl OPTIMAL 100 - 129 mg/dl NEAR OR ABOVE OPTIMAL 130 - 159 mg/dl BORDERLINE HIGH 160 - 189 mg/dl HIGH >190 mg/dl VERY HIGH Performed By: #### T SH, BNP, T7, LIPID, CMP ####[facility] [address] [place] [address]Dr. Dinah Rodriges Triglyceride [Mass/Vol] 101 mg/dL Normal <=150 [facility] Comment on above: Performed By: #### T SH, BNP, T7, LIPID, CMP ####[facility] [address] [place] [address]Dr. Dinah Rodriges VLDL CALC 20.2 mg/dL Normal [facility] Comment on above: Performed By: #### T SH, BNP, T7, LIPID, CMP ####[facility] [address] [place] [address]Dr. Dinah Rodriges MG MAMM SCREEN 3D TENZIN CADon 01-20-2022 MG MAMM SCREEN 3D TENZIN CAD Patient: NEREIDA AGOSTO Exam Date: 01/20/2022 : 1940 Gender:F Ordering : DR JACINTO SERVIN . Admission #: [id number] Family : Order #: [id number] CLICK HERE TO VIEW EXAM RADIOLOGY REPORT [...] No Treatments None Family Cancers None LOCATION: [facility] BREAST COMPOSITION: Scattered areas fibroglandular density. FINDINGS: [...] Monzon MD on 01/20/2022 at 11:33 Normal [facility] PROF 14(COMP METB)on 022 Albumin [Mass/Vol] 3.3 g/dL Critically low 3.4-5.0 Th [facility] Comment on above: Performed By: #### T SH, BNP, T7, LIPID, CMP ####[facility] [address] [place] [address]Dr. Dinah Rodriges Albumin/Globulin [Mass ratio] 1.0 {ratio} Normal [facility] Comment on above: Performed By: #### T SH, BNP, T7, LIPID, CMP ####[facility] [address] [place] [address]Dr. Dinah Rodriges ALP [Catalytic activity/Vol] 69 U/L Normal 46-116 [facility] Comment on above: Performed By: #### T SH, BNP, T7, LIPID, CMP ####[facility] [address] [place] [address]Dr. Dinah Rodriges ALT [Catalytic activity/Vol] 6 U/L Critically low 14-59 [facility] Comment on above: Performed By: #### T SH, BNP, T7, LIPID, CMP ####[facility] [address] [place] [address]Dr. Dinah Rodriges Anion gap [Moles/Vol] 8.7 mmol/L Normal [facility] Comment on above: Performed By: #### T SH, BNP, T7, LIPID, CMP ####[facility] Qc[address]us[address] [place] [address]Dr. Dinah Rodriges AST [Catalytic activity/Vol] 12 U/L Critically low 15-37 [facility] Comment on above: Performed By: #### T SH, BNP, T7, LIPID, CMP ####[facility] [address] [place], [place] [address]Dr. Dinah Rodriges Bilirubin [Mass/Vol] 0.3 mg/dL Normal 0.2-1.0 [facility] Comment on above: Performed By: #### T SH, BNP, T7, LIPID, CMP ####[facility] [address] [place], [place] [address]Dr. Dinah Rodriges Calcium [Mass/Vol] 9.3 mg/dL Normal 8.5-10.1 [facility] Comment on above: Performed By: #### T SH, BNP, T7, LIPID, CMP ####[facility] [address] [place], [place] [address]Dr. Dinah Rodriges Chloride [Moles/Vol] 104 mmol/L Normal 98-107 [facility] Comment on above: Performed By: #### T SH, BNP, T7, LIPID, CMP ####[facility] [address] [place], [place] [address]Dr. Dinah Rodriges CO2 [Moles/Vol] 33.2 mmol/L Critically high 21.0-32.0 [facility] Comment on above: Performed By: #### T SH, BNP, T7, LIPID, CMP ####[facility] [address] [place], [place] [address]Dr. Dinah Rodriges Creatinine [Mass/Vol] 1.11 mg/dL Critically high 0.55-1.02 [facility] Comment on above: Performed By: #### T SH, BNP, T7, LIPID, CMP ####[facility] [address] [place] [address]Dr. Dinah Rodriges EGFR-AF [place]IZ[place] 57 mL/min/1.73m2 Critically low >=60 [facility] Comment on above: Performed By: #### T SH, BNP, T7, LIPID, CMP ####[facility] [address] [place] [address]Dr. Dinah Rodriges EGFR-NON AF CITIZEN [place] 47 mL/min/1.73m2 Critically low >=60 [facility] Comment on above: Performed By: #### T SH, BNP, T7, LIPID, CMP ####[facility] [address] [place], [place] [address]Dr. Dinah Rodriges Globulin (S) [Mass/Vol] 3.4 g/dL Normal [facility] Comment on above: Performed By: #### T SH, BNP, T7, LIPID, CMP ####[facility] [address] [place], [place] [address]Dr. Dinah Rodriges Glucose [Mass/Vol] 84 mg/dL Normal 74-106 [facility] Comment on above: Performed By: #### T SH, BNP, T7, LIPID, CMP ####[facility] [address] [place], [place] [address]Dr. Dinah Rodriges Potassium [Moles/Vol] 4.9 mmol/L Normal 3.5-5.1 [facility] Comment on above: Performed By: #### T SH, BNP, T7, LIPID, CMP ####[facility] [address] [place], [place] [address]Dr. Lizlan Rodriges Protein [Mass/Vol] 6.7 g/dL Normal 6.4-8.2 [facility] Comment on above: Performed By: #### T SH, BNP, T7, LIPID, CMP ####[facility] [address] [place], [place] [address]Dr. Dinah Rodriges Sodium [Moles/Vol] 141 mmol/L Normal 136-145 [facility] Comment on above: Performed By: #### T SH, BNP, T7, LIPID, CMP ####[facility] [address] [place] [address]Dr. Dinah Rodriges Urea nitrogen [Mass/Vol] 18.0 mg/dL Normal 7.0-18.0 [facility] Comment on above: Performed By: #### T SH, BNP, T7, LIPID, CMP ####[facility] [address] [place] [address]Dr. Dinah Rodriges Urea nitrogen/Creatinine [Mass ratio] 16.2 mg/mg Normal [facility] Comment on above: Performed By: #### T SH, BNP, T7, LIPID, CMP ####[facility] [address] [place] [address]Dr. Dinah Rodriges TSHon 01-20-2022 TSH 1.061 uIU/mL Normal 0.358-3.740 [facility] Comment on above: Performed By: #### T SH, BNP, T7, LIPID, CMP ####[facility] [address] [place] [address]Dr. Dinah Rodriges TSH RANGE SEE BELOW Normal [facility] Comment on above: Result Comment: <0.3 4 UIU/ml HYPERTHYROID 0.34-5.60 UIU/ml EUTHYROID >5.60 UIU/ml HYPOTHYROID Performed By: #### T SH, BNP, T7, LIPID, CMP ####[facility] [address] [place] [address]Dr. Dinah Rodriges XR DEXA BONE DENSITYon 01-20 [...] DUDLEY RYDER Date: 2022-01-20 11:30 Normal [facility] Cardiovascular Lab Reporton 12-23-2018 Cardiovascular Lab Report [place] [facility] MR #: [id number] Department of Physician: Martha Seymour M.D. Division of Service Date: 12/23/2018 Cardiology Birthdate: 1940 Adult Cardiovascular Room #: [place] [address] Cardiovascular Laboratory Report PROCEDURE: Transesophageal echocardiogram and cardioversion. INDICATION: Atrial fibrillation. FELLOW: Neto Doty MD PROCEDURE IN DETAIL: An informed consent was obtained from the patient after explaining the indication, risks and benefits, and alternatives. The patient understood and agreed and signed the consent form. The patient was brought to the cardiac cath tech and transesophageal echocardiogram was performed under conscious [...] will follow up with me in the [facility] in 2-4 weeks Electronically Signed by: Goldie Waldrop M.D. 01/05/2019 08:36 A Ehab Eltahawy, M.D. I was present for the entire procedure. Date Dict: 12/23/2018/03:28 P/Neto Doty MD Date Trans: 12/23/2018 04:19 P/beth [id number] cc: Jacinto Servin M.D. [address] [facility] [address] Normal The [facility] Cardiovascular Lab Reporton 12-16-2018 Cardiovascular Lab Report [place] [facility] MR #: [id number] Department of Physician: Martha Ken M.D. Division of Service Date: 12/15/2018 Cardiology Birthdate: 1940 Adult Cardiovascular Room #: [id number] [place] [address] Cardiovascular Laboratory Report CLINICAL PRESENTATION: The patient is a 78-year-old female with past medical history significant for hypertension. She was admitted to [facility] with worsening shortness of breath. She was diagnosed with acute congestive heart failure and atrial fibrillation with a rapid ventricular rate. She was evaluated by my colleague, Dr. Lee[facility]. EKG showed ST elevations in the anterolateral leads and she was transferred urgently to the [facility] due to possible acute myocardial infarction. FINAL [...] ultrasound guidance and micropuncture access technique, a 6-Arabic sheath placed in the right common femoral [...] Cano M.D. Date Trans: 12/16/2018 06:03 Denis/beth [id number] cc: Jacinto Servin M.D. [address] Peter Lee M.D. [facility] [place] [address] Normal The [facility] BASIC METABOLIC PANELon 12-05 Calcium [Mass/Vol] 9.3 mg/dL Normal 8.6-10.3 [facility] Comment on above: Order Comment: No: D o not add to previous draw Performed By: #### 4 6413, 17317, 68468, 31671, 18245 #### [facility] [address] [place] [address], [place] Chloride [Moles/Vol] 102 mmol/L Normal 98-107 The [facility] Comment on above: Order Comment: No: D o not add to previous draw Performed By: #### 4 6413, 65457, 40396, 39800, 47231 #### [facility] [address] [place] [address], [place] CO2 [Moles/Vol] 27 mmol/L Normal 21-[address] [facility] Comment on above: Order Comment: No: D o not add to previous draw Performed By: #### 4 6413, 64355, 37271, 75581, 66044 #### [facility] [address] [place] [address], [facility] Creatinine [Mass/Vol] 0.91 mg/dL Normal 0.60-1.20 The [facility] Comment on above: Order Comment: No: D o not add to previous draw Performed By: #### 4 6413, 11135, 65949, 98753, 94148 #### [facility] [address] [place] [address], [facility] GFR/1.73 sq M predicted among blacks MDRD (S/P/Bld) [Vol rate/Area] mL/min/{1.73_m2} Normal >60 The [facility] Comment on above: Order Comment: No: D o not add to previous draw Result Comment: Calc ulation may not be valid for patients over 70 years Performed By: #### 4 6413, 49528, 04212, 64993, 40574 #### [facility] [address] [place] [address], [facility] GFR/1.73 sq M predicted among non-blacks MDRD (S/P/Bld) [Vol rate/Area] mL/min/{1.73_m2} Normal >60 The [facility] Comment on above: Order Comment: No: D o not add to previous draw Result Comment: Calc ulation may not be valid for patients over 70 years Performed By: #### 4 6413, 02161, 79153, 72695, 88056 #### [facility] [address] [place] [address], [place] Glucose [Mass/Vol] 130 mg/dL High 70-100 [facility] Comment on above: Order Comment: No: D o not add to previous draw Performed By: #### 4 6413, 25134, 42518, 76022, 17639 #### [facility] [address] [place] [address], [facility] Potassium [Moles/Vol] 3.5 mmol/L Normal 3.5-5.1 [facility] Comment on above: Order Comment: No: D o not add to previous draw Performed By: #### 4 6413, 87576, 00077, 38862, 26442 #### [facility] [address] [place] [address], [place] Sodium [Moles/Vol] 140 mmol/L Normal 136-145 [facility] Comment on above: Order Comment: No: D o not add to previous draw Performed By: #### 4 6413, 96143, 78089, 30563, 32582 #### [facility] [address] [place] [id number], [facility] Urea nitrogen [Mass/Vol] 19 mg/dL Normal 7-25 The [facility] Comment on above: Order Comment: No: D o not add to previous draw Performed By: #### 4 6413, 80736, 24352, 14200, 86418 #### [facility] [address] [place] [address], [facility] BNP (B-TYPE NATRIURETIC PEPT CORI)on 12-15-2018 Natriuretic peptide B (Bld) [Mass/Vol] 369 pg/mL High 0-100 The [facility] Comment on above: Order Comment: No: D o not add to previous draw Result Comment: Give n the appropriate clinical setting a BNP result of >100 pg/mL indicates congestive heart failure. Performed By: #### 8 5123, 85012 #### [facility] [address] [place] [id number], [place] CBC COMPLETE BLOOD COUNTon 0 12-15-2018 Erythrocyte distribution width (RBC) [Ratio] 12.9 % Normal 11.5-15.0 [facility] Comment on above: Order Comment: No: D o not add to previous draw Performed By: #### 5 0608 #### [facility] [address] Hematocrit (Bld) [Volume fraction] 39.0 % Normal 36.0-45.0 The [facility] Comment on above: Order Comment: No: D o not add to previous draw Performed By: #### 5 0608 #### [facility] [address] [place] [address], [facility] Hemoglobin (Bld) [Mass/Vol] 12.6 g/dL Normal 12.0-15.0 The [facility] Comment on above: Order Comment: No: D o not add to previous draw Performed By: #### 5 0608 #### [facility] [address] [place] [address], [facility] MCH (RBC) [Entitic mass] 31.6 pg Normal 27.0-33.0 The [facility] Comment on above: Order Comment: No: D o not add to previous draw Performed By: #### 5 0608 #### [facility] [address] MCHC (RBC) [Mass/Vol] 32.3 g/dL Normal 32.0-35.0 The [facility] Comment on above: Order Comment: No: D o not add to previous draw Performed By: #### 5 0608 #### [facility] [address] [place] [address], [facility] MCV (RBC) [Entitic vol] 97.7 fL Normal 82.0-98.0 The [facility] Comment on above: Order Comment: No: D o not add to previous draw Performed By: #### 5 0608 #### [facility] [address] [place] [address], [facility] Nucleated RBC/100 WBC (Bld) [Ratio] 0 % Normal 0-0 The [facility] Comment on above: Order Comment: No: D o not add to previous draw Performed By: #### 5 0608 #### [facility] [address] [place] [address], [place] PLAT CNT 252 10*3/uL Normal 150-400 The [facility] Comment on above: Order Comment: No: D o not add to previous draw Performed By: #### 5 0608 #### [facility] [address] [place] [address], [facility] RBC (Bld) [#/Vol] 3.99 10*6/uL Normal 3.80-5.00 The [facility] Comment on above: Order Comment: No: D o not add to previous draw Performed By: #### 5 0608 #### [facility] [address] [facility] [place] [address], [facility] WBC (Bld) [#/Vol] 8.04 10*3/uL Normal 4.00-10.60 [facility] Comment on above: Order Comment: No: D o not add to previous draw Performed By: #### 5 0608 #### [facility] [address] [facility]. [address] HEMOGLOBIN A1Con 12-15-2018 HbA1c (Bld) [Mass fraction] 108 mg/dL Normal 70-126 The [facility] Comment on above: Order Comment: No: D o not add to previous draw Performed By: #### 8 5123, 85434 #### [facility] [address] [facility] [place] [address], [facility] HbA1c (Bld) [Mass fraction] 5.4 % Normal 4.0-6.0 The [facility] Comment on above: Order Comment: No: D o not add to previous draw Performed By: #### 8 5123, 68746 #### [facility] [address] [place] [address], [facility] LIPID PROFILEon 12-15-2018 Cholesterol [Mass/Vol] 138 mg/dL Normal 120-200 The [facility] Comment on above: Order Comment: No: D o not add to previous draw Result Comment: CHOL ESTEROL REFERENCE RANGE: 20 YEARS AND OLDER CARDIOVASCULAR RISK Less than 200 mg/dl Low Risk 200 to 239 mg/dl Borderline Risk 240 mg/dl and greater High Risk Performed By: #### 4 6413, 28529, 22348, 68740, 85361 #### [facility] [address] [place] [address], [place] Cholesterol in HDL [Mass/Vol] 36 mg/dL Normal 23-92 The [facility] Comment on above: Order Comment: No: D o not add to previous draw Result Comment: Slig ht variation in normal range could be due to gender and/or age. HDL CHOLESTEROL REFERENCE RANGE: 20 years and older Cardiovascular Risk > or =60 mg/dL Desirable 40 TO 59 mg/dL Low Risk <40 mg/dL High Risk Performed By: #### 4 6413, 47875, 53930, 29965, 88354 #### [facility] [address] [place] [address], [place] Cholesterol in LDL [Mass/Vol] 81 mg/dL Normal 0-130 [facility] Comment on above: Order Comment: No: D o not add to previous draw Result Comment: LDL IS A CALCULATION LDL IS ONLY VALID IF THE TRIG IS LESS THAN 400. Performed By: #### 4 6413, 04085, 52929, 33281, 67449 #### [facility] [address] [place] [address], [place] Cholesterol.total/Ch olesterol in HDL [Mass ratio] 3.8 {ratio} Normal .0-4.5 [facility] Comment on above: Order Comment: No: D o not add to previous draw Performed By: #### 4 6413, 05498, 70699, 70926, 76714 #### [facility] [address] [place] [address], [place] NON-HDL CHOLESTEROL 102 mg/dL Normal [facility] Comment on above: Order Comment: No: D o not add to previous draw Performed By: #### 4 6413, 06793, 43178, 46717, 80999 #### [facility] [address] [place] [address], [place] Triglyceride [Mass/Vol] 106 mg/dL Normal 40-149 The [facility] Comment on above: Order Comment: No: D o not add to previous draw Result Comment: TRIG LYCERIDE REFERENCE RANGE: 20 YEARS AND OLDER CARDIOVASCULAR RISK LESS THAN 150 mg/dl LOW RISK 150 TO 199 mg/dl BORDERLINE RISK 200 mg/dl AND GREATER HIGH RISK Performed By: #### 4 6413, 70412, 24697, 26769, 89382 #### [facility] [address] [facility] [place], [place] [id number] [place] [address] VLDL CHOL 21 mg/dL Normal 0-40 The [facility] Comment on above: Order Comment: No: D o not add to previous draw Performed By: #### 4 6413, 91252, 83286, 12085, 81232 #### [facility] [address] [place], [place] [id number] [place] [address] MAGNESIUM BLOODon 12-15-2018 Magnesium [Mass/Vol] 1.9 mg/dL Normal 1.9-2.7 The [facility] Comment on above: Order Comment: No: D o not add to previous draw Performed By: #### 4 6413, 88296, 62881, 75768, 44665 #### [facility] [address] [place], [place] [id number] [place] [address] PHOSPHORUS BLOODon 9 Phosphate [Mass/Vol] 4.5 mg/dL Normal 2.5-5.0 The [facility] Comment on above: Order Comment: haider figueroa request Performed By: #### 4 6413, 35888, 66711, 71167, 33081 #### [facility] [address] [place] [address], [facility] PORTABLE CHEST 1 VIEWon 12-05 PORTABLE CHEST 1 VIEW [facility] Department of Radiology [address] [place] [id number] Patient Name: NEREIDA AGOSTO : 1940 Sex: F Age: Race: White Pt. Location: [id number] Patient Status: I Ordered Date: 12/15/2018 2:10:00 [...] failure Electronically signed by:Bharti Bazan. Transcribed by: [email or web address], User Resident: Electronically Signed by: BHARTI BAZAN @ 12/15/2018 03:50 PM Normal The [facility] Comment on above: Order Comment: R/O C HF TSH3on 12-15-2018 TSH 3RD GENERATION 0.86 uIU/mL Normal 0.34-5.60 The [facility] Comment on above: Performed By: #### 4 6413, 92909, 76747, 30995, 16028 #### [facility] [address] Vital Signs Date Time Vital Sign Value Performing Clinician Clemencia larry 03-15-2024 13:44-0400 Blood Pressure Location Rashi NILL [facility] [place] 03-15-2024 13:44-0400 Diastolic blood pressure 80 mm[Hg] Rashi NILL [facility] [place] 03-15-2024 13:44-0400 Heart rate 76 /min Rashi NILL [facility] [place] 03-15-2024 13:44-0400 Respiratory rate 16 /min Rashi NILL [facility] [place] 03-15-2024 13:44-0400 Systolic blood pressure 118 mm[Hg] Rashi NILL [facility] 02-02-2023 14:45-0400 Blood Pressure Location Rashi NILL [facility] [place] 02-02-2023 14:45-0400 Diastolic blood pressure 76 mm[Hg] Rashi NILL [facility] [place] 02-02-2023 14:45-0400 Heart rate 74 /min Rashi NILL [facility] [place] 02-02-2023 14:45-0400 Respiratory rate 16 /min Rashi NILL [facility] [place] 02-02-2023 14:45-0400 Systolic blood pressure 126 mm[Hg] Rashi NILL [facility] Encounters Encounter Date Encounter Type Care Provider Facility Start: 03-15-2024 End: 03-15-2024 ambulatory Rashi JOHN Facility:[facility] Start: 03-15-2024 End: 03-15-2024 Patient encounter procedure Rashi JOHN [facility] Start: 02-07-2024 End: 02-07-2024 ambulatory GOLDIE WALDROP [facility] Start: 10-28-2023 End: 10-28-2023 ambulatory KHANG LORENZO [facility] Start: 08-05-2023 End: 08-05-2023 ambulatory ROD AGUAYO Not Available Start: 03-05-2023 End: 03-05-2023 Patient encounter procedure Rashi JOHN [facility] Surgery Nill/Said Anneliese Start: 02-19-2023 End: 02-19-2023 [facility] Start: 02-02-2023 End: 02-02-2023 Patient encounter procedure Rashi JOHN General [facility] [place] Start: 01-21-[address] JACINTO SERVIN . Facili ty:[facility] Start: 01-19-2023 End: 01-19-[address] JACINTO SERVIN . Facility: Start: 01-18-2023 End: 01-19-[address] JACINTO SERVIN . Facility: Start: 01-20-2022 End: 01-21-[address] JACINTO SERVIN . Facility: Start: 12-23-2018 End: 12-24-2018 Patient encounter procedure GOLDIE WALDROP Facility:[facility] Start: 12-15-2018 End: 12-16-2018 Evaluation and management of inpatient PETER LEE Facility:[facility] Procedures Date Procedure Procedure Detail Performing [...] vaccine, unspecified formulation Rashi JOHN [facility] [place] 08-28-2021 SARS-CoV-2 (COVID-19 ) mRNA-1273 vaccine Rashi CAMARAL [facility] [place] 11-14-2020 SARS-CoV-2 (COVID-19 ) mRNA-1273 vaccine Rashi CAMARAL [facility] [place] 10-18-2020 SARS-CoV-2 (COVID-19 ) mRNA-1273 vaccine Rashi JOHN [facility] [place] Payers Date Payer Category Payer [employer] [id number] 2018 [employer] [id number] 1959 [employer] [id number] 1957 Medicare [id number] 1940 Unknown [id number] 1942 Unknown [id number] 1942 Unknown [id number] 1942 Unknown [id number] 1942 Unknown [id number] 1942 Unknown [id number] 1942 Unknown [id number] 1942 Unknown [id number] Social History Date Type Detail Facility Start: 02-02-2023 End: 03-15-2024 Tobacco smoking status Ex-smoker (finding) [facility] Tobacco smoking status Never Gener al Surgery [place] Sex Assigned At Female [facility] Functional Status Date Assessment Result Facility 03-15-2024 Functional Status N/A [facility] [place] 02-02-2023 Functional Status N/A [facility] Progress note 02-07-2024 Note Date & Type Note Facility 02-07-2024 Note [facility] Cardiology Clinic Note Chief Complaint: Patient [...] is seen in (more content not included)... [facility] Progress note 10-28-2023 Note Date & Type Note Facility 10-28-2023 Note [facility]iology [place] Note SUBJECTIVE No chief complaint on [...] 4.9, GFR 47 (more content not included)... [facility] Progress note 10-28-2023 Note Date & Type [...] All other systems reviewed and are negative. [facility] Progress note 08-05-2023 Note Date & Type [...] All other systems reviewed and are negative. [facility] Progress note 08-05-2023 Note Date & Type [...] aorta. - Succes (more content not included)... [facility] Progress note 02-19-2023 Note Date & Type [...] in about 6 months (around 08/21/2023). [place] o[place] (more content not included)... [facility] Evaluation + Plan note Note Date & Type Note Facility Evaluation + Plan note No data available for this section [facility] [place] Discharge instructions Note Date & Type Note Facility Hospital Discharge instructions No data available for this section [facility] [place] Progress note Note Date & Type Note Facility Progress note No data available for this section [facility] [place] Summary Purpose Family History No Family History Records FoundNo Family History Records FoundNo Family History Records FoundNo Family History Records FoundNo Family History Records Found No data available for this section Advance Directives No Advanced Directives Records FoundNo Advanced Directives Records FoundNo Advanced Directives Records FoundNo Advanced Directives Records FoundNo Advanced Directives Records Found Hospital Course Note MR#: [id number] [facility] Pt. Name: Nereida Agosto Admitted: 12/15/2018 Discharged: [...] was sent to the ER. Apparently in [facility], the patient was found to have decompensated heart failure with new onset of atrial fibrillation. She was in rapid ventricular response. The patient was admitt (more content not included)... Additional Source Comments INFORMATION SOURCE (unrecogn ized section and content) DATE CREATED AUTHOR 04/29/2019 [facility] DATE CREATED AUTHOR AUTHOR'S ORGANIZ ATION 01/19/2023 [facility] DATE CREATED AUTHOR AUTHOR'S ORGANIZ ATION 08/08/2023 [facility] EPIC DATE CREATED AUTHOR AUTHOR'S ORGANIZ ATION 02/07/2024 [facility] DATE CREATED AUTHOR AUTHOR'S ORGANIZ ATION 03/21/[address] [place] [address] Patient Care team informatio n (unrecognized section and content) Personnel Name: Jacinto Servin MD Address: Address: [address] [place] [address] Personnel Name: Jacinto Servin MD Address: Address: [address] [place] [address] Personnel Name: Jacinto Servin MD Address: Address: [address] [place] [address] FOR RECORDS PERTAINING TO PATIENTS WHO ARE [...] BE BASED ON THE PRIMARY CLINICAL RECORDS. [employer] provides no warranty or guarantee of the accuracy or completeness of information in this document.
== END 2024-04-03 07:39 | disposition home or self-care (01) ==
LOC: RAD 07:38
PROVIDERS: PCP Family Medicine; Visit Provider Physician Assistant
DX: M81.0 Age-related osteoporosis without current pathological fracture (principal)
CPT/HCPCS: 77080

== ENCOUNTER 2024-04-17 13:30 | Outpatient (OUT) | payer MEDICARE, OTHER, SELFPAY ==
--- OUTSIDE RECORDS SUMMARY | 2024-04-18 07:27 | XMS_ITS | CCD ---
Author Organization [facility] Care Team Providers Care Member Of Congress Name Role Phone PETER LEE Referring Unavailable JACINTO SERVIN Primary Care Unavailable CHAPITO SHIPLEY Attending Unavailable CHAPITO SHIPLEY Admitting Unavailable [place] Procedure Practitioner Unavailab JJ Rendon Surgeon Unavailable ELTAHAWY, EHAB A Admitting Unavailable PALMA, EHAB A Attending Unavailable JACINTO SERVIN Referring Unavailable JACINTO SERVIN Primary Care Unavailable HOY ., DR CASEY Admitting Unavailable HOY ., DR CASEY Primary Care Unavailable HOY ., DR CASEY Consulting Unavailable HOY ., DR CASEY Attending Unavailable HOY ., DR CASEY Admitting Unavailable HOY ., DR CASEY Primary Care Unavailable HOY ., DR CASEY Consulting Unavailable HOY ., DR CASEY Attending Unavailable BRADFORD, DR KELSI Aguirre Consulting Unavailable ZIEBER, DR DUDLEY Lee Consulting Unavailable HOY ., DR CASEY Admitting Unavailable HOY ., DR CASEY Primary Care Unavailable HOY ., DR CASEY Attending Unavailable HOY ., DR CASEY Admitting Unavailable HOY ., DR CASEY Primary Care Unavailable HOY ., DR CASEY Consulting Unavailable YOLANDAY ., DR CASEY Attending Unavailable Jacinto Servin Primary Care Physician [phone] FLAQUITO BALLARD Attending Unavailable KHANG LORENZO Attending Unavailable FLAQUITO BALLARD Attending Unavailable ELTASHELLY, EHAB Attending Unavailable Rashi JOHN Attending Unavailable ROD AGUAYO Attending Unavailable ROD AGUAYO Attending Unavailable ROD AGUAYO Attending Unavailable Allergies Allergy Classification Reported Allergen(s) Allergy Type Date of Onset Reaction(s) Facility (4 sources) Sulfonamides (Antibiotic); Translations: [sulfa drugs] Drug allergy Unknown (qualifier value) [facility] [place] (1 source) Sulfonamides (Antibiotic); Translations: [SULFA (SULFONAMIDE ANTIBIOTICS)] Propensity to adverse reactions to drug (disorder) [facility] (1 source) ALPRAZolam; Translations: [Xanax] Drug Allergy [facility] Medications Current Medications Medication Drug [...] polyps Your Care Team Attending Physician - Rsahi JOHN MD Primary Care Physician - Jacinto [...] choosing us for your care. [facility] General Surgery Office/Clini c Noteon 03-15-2024 [...] Family Hist (more content not included)... Normal [facility] Comment on above: Result Comment: Elec tronically Signed By: ALVARO AHMADI, Rashi [email or web address]\Date and Time Signed: 03/15/24 14:08 EDT Office Visiton 02-07-2024 Follow-up visit [id number] Nereida Agosto 1940 F Date Provider Department Center 02/07/2024 271-GOLDIE VAUGHAN KIM Cook Family History Problem Relation Age of Onset No Known Problems Mother No Known Problems Father Family Status - Relation Status Age at Mother Father Level of Service:92562 [place] OFFICE/OUTPATIENT ESTABLISHED LOW MDM 20 MIN Normal [facility] Office Visiton 10-28-2023 Follow-up visit [id number] Nereida Agosto 1940 F Date Provider Department Center 10/28/2023 Yu-KHANG LORENZO Family History Problem Relation Age of Onset No Known Problems Mother No Known Problems Father Family Status - Relation Status Age at Mother Father Level of Service:61363 [place] OFFICE/OUTPATIENT ESTABLISHED MOD MDM 30 MIN Reason for Visit and Comments: Congestive Heart Failure [127] Dizziness [295853] Normal [facility] Office Visiton 08-05-2023 Follow-up visit [id number] StanislawrubioharveyNereida P 1940 Date Provider Department Center 08/05/[id number] MAN Anneliese [facility] Family History Problem Relation Age of Onset No Known Problems Mother No Known Problems Father Family Status - Relation Status Age at Mother Father Level of Service:13358 [place] OFFICE/OUTPATIENT ESTABLISHED MOD MDM 30-39 MIN Normal [facility] Office Visiton 02-19-2023 Follow-up visit [id number] StanislawrubioharveyNereida P 1940 F Date Provider Department Center 02/19/2023 [id number] ANAYA [facility] Family History Problem Relation Age of Onset No Known Problems Mother No Known Problems Father Family Status - Relation Status Age at Mother Father Level of Service:74080 [place] OFFICE/OUTPATIENT ESTABLISHED MOD MDM 30-39 MIN Reason for Visit and Comments: Follow-up [809321] - Pt is here for sx clearance scheduled for echo 02/17 [facility] OCC BLD IMMUNO SCREENon 01-04 OCCULT BLOOD Positive Abnormal NEGATIVE [facility] Comment on above: Performed By: #### O BSCRN #### [facility] [address] [place] [address] Dr. Dinah Rodriges CBC AUTO DIFFon 01-18-2023 BASO # 0.0 103/ul Normal 0.0-0.1 [facility] Comment on above: Performed By: #### C BC #### [facility] [address] [place] [address] Dr. Dinah Rodriges Basophils/100 WBC (Bld) 0.6 % Normal 0.2-2.0 [facility] Comment on above: Performed By: #### C BC #### [facility] [address] [place] [address] Dr. Dinah Rodriges EO # 0.1 103/ul Normal 0.0-0.7 [facility] Comment on above: Performed By: #### C BC #### [facility] [address] [place] [address] Dr. Dinah Rodriges Eosinophils/100 WBC (Bld) 1.8 % Normal 0.9-7.0 [facility] Comment on above: Performed By: #### C BC #### [facility] [address] [place] [address] Dr. Dinah Rodriges Erythrocyte distribution width (RBC) [Ratio] 12.7 % Normal 11.0-15.0 [facility] Comment on above: Performed By: #### C BC #### [facility] [address] [place] [address] Dr. Dinah Rodriges Hematocrit (Bld) [Volume fraction] 39.7 % Normal 36.0-48.0 [facility] Comment on above: Performed By: #### C BC #### [facility] [address] [place] [address] Dr. Dinah Rodriges Hemoglobin (Bld) [Mass/Vol] 12.6 g/dL Normal 12.0-16.0 [facility] Comment on above: Performed By: #### C BC #### [facility] [address] [place] [address] Dr. Dinah Rodriges IG # 0.01 10e3/ul Normal 0.00-0.03 [facility] Comment on above: Performed By: #### C BC #### [facility] [address] [place] [address] Dr. Dinah Rodriges IG % 0.2 % Normal 0.0-0.5 [facility] Comment on above: Performed By: #### C BC #### [facility] [address] [place] [address] Dr. Dinah Rodriges LYMPH # 1.5 103/ul Normal 1.2-3.8 [facility] Comment on above: Performed By: #### C BC #### [facility] [address] [place] [address] Dr. Dinah Rodriges Lymphocytes/100 WBC (Bld) 28.7 % Normal 20.5-60.0 [facility] Comment on above: Performed By: #### C BC #### [facility] [address] [place] [address] Dr. Dinah Rodriges MANUAL DIFF REQ NO Normal [facility] Comment on above: Performed By: #### C BC #### [facility] [address] [place] [address] Dr. Dinah Rodriges MCH (RBC) [Entitic mass] 30.7 pg Normal 26.7-34.0 [facility] Comment on above: Performed By: #### C BC #### [facility] [address] [place] [address] Dr. Dinah Rodriges MCHC (RBC) [Mass/Vol] 31.7 g/dL Normal 29.9-35.2 [facility] Comment on above: Performed By: #### C BC #### [facility] [address] [place] [address] Dr. Dinah Rodriges MCV (RBC) [Entitic vol] 96.8 fL Normal 81.0-99.0 [facility] Comment on above: Performed By: #### C BC #### [facility] [address] [place] [address] Dr. Dinah Rodriges MONO # 0.4 103/ul Normal 0.3-0.8 [facility] Comment on above: Performed By: #### C BC #### [facility] [address] [place] [address] Dr. Dinah Rodriges Monocytes/100 WBC (Bld) 7.3 % Normal 1.7-12.0 [facility] Comment on above: Performed By: #### C BC #### [facility] [address] [place] [address] Dr. Dinah Rodriges NEUT # 3.1 103/ul Normal 1.4-6.5 [facility] Comment on above: Performed By: #### C BC #### [facility] [address] [place] [address] Dr. Dinah Rodriges Neutrophils/100 WBC (Bld) 61.4 % Normal 43.0-75.0 [facility] Comment on above: Performed By: #### C BC #### [facility] [address] [place] [address] Dr. Dinah Rodriges Platelet mean volume (Bld) [Entitic vol] 9.7 fL Normal 9.5-13.5 [facility] Comment on above: Performed By: #### C BC #### [facility] [address] [address] [address] Dinah Rodriges PLT 163 103/ul Normal 150-450 [facility] Comment on above: Performed By: #### C BC #### [facility] [address] [address] [address] Dinah Rodriges RBC 4.10 106/ul Critically low 4.20-5.40 [facility] Comment on above: Performed By: #### C BC #### [facility] [address] [address] [address] Dinah Rodriges WBC 5.1 103/ul Normal 4.0-11.0 [facility] Comment on above: Performed By: #### C BC #### [facility] [address] [address] [address] Dinah Rodriges FREE T3on 01-18-2023 FREE T3 2.11 pg/mlL Critically low 2.18-3.98 [facility] Comment on above: Performed By: #### C MP, TSH, T4, LIPID, FT3 #### [facility] [address] [address] [address] Dinah Rodriges GLYCOHEMOGLOBIN A1Con 2022 ADA RECOMMENDATION SEE BELOW Normal [facility] Comment on above: Result Comment: ADA RECOMMENDED LIMIT 4.0 - 6.0 ADA THERAPEUTIC TARGET < 7.0 ACTION SUGGESTED > 7.0 Performed By: #### A 1C ####[facility] [address] [address]Dr. Dinah Rodriges Glucose [Mass/Vol] 105 mg/dL Normal [facility] Comment on above: Performed By: #### A 1C ####[facility] [address] [id number] Dinah Rodriges HbA1c (Bld) [Mass fraction] 5.3 % Normal 4.5-6.2 [facility] Comment on above: Performed By: #### A 1C ####[facility] [address] [place], [place] [address]IpDr. Dinah Rodriges LIPID PROFILEon 01-18-2023 CHOL-HDL RATIO NORM SEE BELOW Normal [facility] Comment on above: Result Comment: 3.3 - 4.4 LOW RISK 4.4 - 7.1 AVERAGE RISK 7.1 - 11.0 MODERATE RISK >11.0 HIGH RISK Performed By: #### C MP, TSH, T4, LIPID, FT3 #### [facility] [address] [address] [address] Dinah Rodriges Cholesterol [Mass/Vol] 168 mg/dL Normal <=200 [facility] Comment on above: Performed By: #### C MP, TSH, T4, LIPID, FT3 #### [facility] [address] [address] [address] Dinah Rodriges Cholesterol in HDL [Mass/Vol] 61 mg/dL Critically high 40-60 [facility] Comment on above: Performed By: #### C MP, TSH, T4, LIPID, FT3 #### [facility] [address] [address] [address] Dinah Rodriges Cholesterol in LDL [Mass/Vol] 94.0 mg/dL Normal [facility] Comment on above: Performed By: #### C MP, TSH, T4, LIPID, FT3 #### [facility] [address] [address] [address] Dinah Rodriges Cholesterol.total/Ch olesterol in HDL [Mass ratio] 2.8 {ratio} Normal [facility] Comment on above: Performed By: #### C MP, TSH, T4, LIPID, FT3 #### [facility] [address] [address] [address] Dinah Rodriges HDL NORMAL > or = 60 mg/dl - LOW CARDIOVASCULAR RISK <40 mg/dl - HIGH CARDIOVASCULAR RISK Normal [facility] Comment on above: Performed By: #### C MP, TSH, T4, LIPID, FT3 #### [facility] [address] [address] [address] Dinah Rodriges LDL CALC NORMAL SEE BELOW Normal [facility] Comment on above: Result Comment: <100 mg/dl OPTIMAL 100 - 129 mg/dl NEAR OR ABOVE OPTIMAL 130 - 159 mg/dl BORDERLINE HIGH 160 - 189 mg/dl HIGH >190 mg/dl VERY HIGH Performed By: #### C MP, TSH, T4, LIPID, FT3 #### [facility] [address] [place] [address] Dr. Dinah Rodriges Triglyceride [Mass/Vol] 65 mg/dL Normal <=150 [facility] Comment on above: Performed By: #### C MP, TSH, T4, LIPID, FT3 #### [facility] [address] [address] [address] Dinah Rodriges VLDL CALC 13.0 mg/dL Normal [facility] Comment on above: Performed By: #### C MP, TSH, T4, LIPID, FT3 #### [facility] [address] [place] [address] Dr. Dinah Rodriges PROF 14(COMP METB)on 023 Albumin [Mass/Vol] 3.4 g/dL Normal 3.4-5.0 [facility] Comment on above: Performed By: #### C MP, TSH, T4, LIPID, FT3 #### [facility] [address] [place] [address] Dr. Dinah Rodriges Albumin/Globulin [Mass ratio] 1.0 {ratio} Normal [facility] Comment on above: Performed By: #### C MP, TSH, T4, LIPID, FT3 #### [facility] [address] [place] [address] Dr. Dinah Rodriges ALP [Catalytic activity/Vol] 59 U/L Normal 46-116 [facility] Comment on above: Performed By: #### C MP, TSH, T4, LIPID, FT3 #### [facility] [address] [place] [address] Dr. Dinah Rodriges ALT [Catalytic activity/Vol] 13 U/L Critically low 14-59 [facility] Comment on above: Performed By: #### C MP, TSH, T4, LIPID, FT3 #### [facility] [address] [place] [address] Dr. Dinah Rodriges Anion gap [Moles/Vol] 10.7 mmol/L Normal [facility] Comment on above: Performed By: #### C MP, TSH, T4, LIPID, FT3 #### [facility] [address] [address] [address] Dinah Rodriges AST [Catalytic activity/Vol] 14 U/L Critically low 15-37 [facility] Comment on above: Performed By: #### C MP, TSH, T4, LIPID, FT3 #### [facility] [address] [address] [address] Dinah Rodriges Bilirubin [Mass/Vol] 0.3 mg/dL Normal 0.2-1.0 [facility] Comment on above: Performed By: #### C MP, TSH, T4, LIPID, FT3 #### [facility] [address] [address] [address] Dinah Rodriges Calcium [Mass/Vol] 9.4 mg/dL Normal 8.5-10.1 [facility] Comment on above: Performed By: #### C MP, TSH, T4, LIPID, FT3 #### [facility] [address] [address] [address] Dinah Rodriges Chloride [Moles/Vol] 106 mmol/L Normal 98-107 [facility] Comment on above: Performed By: #### C MP, TSH, T4, LIPID, FT3 #### [facility] [address] [address] [address] Dinah Rodriges CO2 [Moles/Vol] 31.9 mmol/L Normal 21.0-32.0 [facility] Comment on above: Performed By: #### C MP, TSH, T4, LIPID, FT3 #### [facility] [address] [address] [address] Dinah Rodriges Creatinine [Mass/Vol] 0.95 mg/dL Normal 0.55-1.02 [facility] Comment on above: Performed By: #### C MP, TSH, T4, LIPID, FT3 #### [facility] [address] [address] [address] Dinah Rodriges EGFR-AF TANZANIAN >60 Normal >=60 [facility] Comment on above: Performed By: #### C MP, TSH, T4, LIPID, FT3 #### [facility] [address] [place] [address] Dr. Dinah Rodriges EGFR-NON AF TANZANIAN 57 mL/min/1.73m2 Critically low >=60 [facility] Comment on above: Performed By: #### C MP, TSH, T4, LIPID, FT3 #### [facility] [address] [place] [address] Dr. Dinah Rodriges Globulin (S) [Mass/Vol] 3.4 g/dL Normal [facility] Comment on above: Performed By: #### C MP, TSH, T4, LIPID, FT3 #### [facility] [address] [place] [address] Dr. Dinah Rodriges Glucose [Mass/Vol] 88 mg/dL Normal 74-106 [facility] Comment on above: Performed By: #### C MP, TSH, T4, LIPID, FT3 #### [facility] [address] [place] [address] Dr. Dinah Rodriges Potassium [Moles/Vol] 4.6 mmol/L Normal 3.5-5.1 [facility] Comment on above: Performed By: #### C MP, TSH, T4, LIPID, FT3 #### [facility] [address] [place] [address] Dr. Dinah Rodriges Protein [Mass/Vol] 6.8 g/dL Normal 6.4-8.2 [facility] Comment on above: Performed By: #### C MP, TSH, T4, LIPID, FT3 #### [facility] [address] [place] [address] Dr. Dinah Rodriges Sodium [Moles/Vol] 144 mmol/L Normal 136-145 [facility] Comment on above: Performed By: #### C MP, TSH, T4, LIPID, FT3 #### [facility] [address] [place] [address] Dr. Dinah Rodriges Urea nitrogen [Mass/Vol] 18.0 mg/dL Normal 7.0-18.0 [facility] Comment on above: Performed By: #### C MP, TSH, T4, LIPID, FT3 #### [facility] [address] [address] [address] Dinah Rodriges Urea nitrogen/Creatinine [Mass ratio] 18.9 mg/mg Normal [facility] Comment on above: Performed By: #### C MP, TSH, T4, LIPID, FT3 #### [facility] [address] [address] [address] Dinah Rodriges T4on 01-18-2023 T4 [Mass/Vol] 9.30 ug/dL Normal 4.80-13.90 [facility] Comment on above: Performed By: #### C MP, TSH, T4, LIPID, FT3 #### [facility] [address] [place] [address] Dr. Dinah Rodriges TSHon 01-18-2023 TSH 0.872 uIU/mL Normal 0.358-3.740 [facility] Comment on above: Performed By: #### C MP, TSH, T4, LIPID, FT3 #### [facility] [address] [place] [address] Dr. Dinah Rodriges BNPon 01-20-2022 Natriuretic peptide B (Bld) [Mass/Vol] 464.0 pg/mL Normal <=1,800.0 [facility] Comment on above: Performed By: #### T SH, BNP, T7, LIPID, CMP ####[facility] [address] [address]Dr. Dinah Rodriges CBC AUTO DIFFon 01-20-2022 BASO # 0.0 103/ul Normal 0.0-0.1 [facility] Comment on above: Performed By: #### C BC #### [facility] [address] [place] [address] Dr. Dinah Rodriges Basophils/100 WBC (Bld) 0.4 % Normal 0.2-2.0 [facility] Comment on above: Performed By: #### C BC #### [facility] [address] [place] [address] Dr. Dinah Rodriges EO # 0.1 103/ul Normal 0.0-0.7 [facility] Comment on above: Performed By: #### C BC #### [facility] [address] [place] [address] Dr. Dinah Rodriges Eosinophils/100 WBC (Bld) 1.9 % Normal 0.9-7.0 [facility] Comment on above: Performed By: #### C BC #### [facility] [address] [place] [address] Dr. Dinah Rodriges Erythrocyte distribution width (RBC) [Ratio] 12.7 % Normal 11.0-15.0 [facility] Comment on above: Performed By: #### C BC #### [facility] [address] [place] [address] Dr. Dinah Rodriges Hematocrit (Bld) [Volume fraction] 35.0 % Critically low 36.0-48.0 [facility] Comment on above: Performed By: #### C BC #### [facility] [address] [place] [address] Dr. Dinah Rodriges Hemoglobin (Bld) [Mass/Vol] 11.5 g/dL Critically low 12.0-16.0 [facility] Comment on above: Performed By: #### C BC #### [facility] [address] [place] [address] Dr. Dinah Rodriges IG # 0.01 10e3/ul Normal 0.00-0.03 [facility] Comment on above: Performed By: #### C BC #### [facility] [address] [place] [address] Dr. Dinah Rodriges IG % 0.2 % Normal 0.0-0.5 [facility] Comment on above: Performed By: #### C BC #### [facility] [address] [place] [address] Dr. Dinah Rodriges LYMPH # 1.4 103/ul Normal 1.2-3.8 [facility] Comment on above: Performed By: #### C BC #### [facility] [address] [place] [address] Dr. Dinah Rodriges Lymphocytes/100 WBC (Bld) 26.9 % Normal 20.5-60.0 [facility] Comment on above: Performed By: #### C BC #### [facility] [address] [place] [address] Dr. Dinah Rodriges MANUAL DIFF REQ NO Normal [facility] Comment on above: Performed By: #### C BC #### [facility] [address] [place] [address] Dr. Dinah Rodriges MCH (RBC) [Entitic mass] 33.0 pg Normal 26.7-34.0 [facility] Comment on above: Performed By: #### C BC #### [facility] [address] [place] [address] Dr. Dinah Rodriges MCHC (RBC) [Mass/Vol] 32.9 g/dL Normal 29.9-35.2 [facility] Comment on above: Performed By: #### C BC #### [facility] [address] [place] [address] Dr. Dinah Rodriges MCV (RBC) [Entitic vol] 100.3 fL Critically high 81.0-99.0 [facility] Comment on above: Performed By: #### C BC #### [facility] [address] [place] [address] Dr. Dinah Rodriges MONO # 0.4 103/ul Normal 0.3-0.8 [facility] Comment on above: Performed By: #### C BC #### [facility] [address] [place] [place] [address] Dr. Dinah Rodriges Monocytes/100 WBC (Bld) 7.6 % Normal 1.7-12.0 [facility] Comment on above: Performed By: #### C BC #### [facility] [address] [place] [address] Dr. Dinah Rodriges NEUT # 3.3 103/ul Normal 1.4-6.5 [facility] Comment on above: Performed By: #### C BC #### [facility] [address] [place] [address] Dr. Dinah Rodriges Neutrophils/100 WBC (Bld) 63.0 % Normal 43.0-75.0 [facility] Comment on above: Performed By: #### C BC #### [facility] [address] [place], [place] [address] Dr. Dinah Rodriges Platelet mean volume (Bld) [Entitic vol] 10.0 fL Normal 9.5-13.5 [facility] Comment on above: Performed By: #### C BC #### [facility] [address] [place] [address] [address] Dinah Rodriges PLT 165 103/ul Normal 150-450 [facility] Comment on above: Performed By: #### C BC #### [facility] [address] [place] [address] [address] Dinah Rodriges RBC 3.49 106/ul Critically low 4.20-5.40 [facility] Comment on above: Performed By: #### C BC #### [facility] [address] [place] [address] [address] Dinah Rodriges WBC 5.3 103/ul Normal 4.0-11.0 [facility] Comment on above: Performed By: #### C BC #### [facility] [address] [place] [address] [address] Dinah Rodriges FREE THYROXINE INDEX T7on FTI 3.37 Normal 1.30-4.50 [facility] Comment on above: Performed By: #### T SH, BNP, T7, LIPID, CMP ####[facility] [address] [place] [id number]. Dinah Rodriges T3U 34.0 % Normal 30.0-39.0 [facility] Comment on above: Performed By: #### T SH, BNP, T7, LIPID, CMP ####[facility] [address] [place], [place] [address]CmDr. Dinah Rodriges T4 [Mass/Vol] 9.90 ug/dL Normal 4.80-13.90 [facility] Comment on above: Performed By: #### T SH, BNP, T7, LIPID, CMP ####[facility] [address] [place] [id number]. Dinah Rodriges GLYCOHEMOGLOBIN A1Con 2021 ADA RECOMMENDATION SEE BELOW Normal [facility] Comment on above: Result Comment: ADA RECOMMENDED LIMIT 4.0 - 6.0 ADA THERAPEUTIC TARGET < 7.0 ACTION SUGGESTED > 7.0 Performed By: #### A 1C ####[facility] [address] [place] [address]Dr. Dinah Rodriges Glucose [Mass/Vol] 103 mg/dL Normal [facility] Comment on above: Performed By: #### A 1C ####[facility] [address] [place] [address]Dr. Dinah Rodriges HbA1c (Bld) [Mass fraction] 5.2 % Normal 4.5-6.2 [facility] Comment on above: Performed By: #### A 1C ####[facility] [address] [place], [place] [address]Dr. Dinah Rodriges IRONon 01-20-2022 Iron [Mass/Vol] 79.0 ug/dL Normal 50.0-170.0 [facility] Comment on above: Performed By: #### I KINZA ####[facility] [address] [place], [place] [address]Dr. Dinah Rodirges LIPID PROFILEon 01-20-2022 CHOL-HDL RATIO NORM SEE BELOW Normal [facility] Comment on above: Result Comment: 3.3 - 4.4 LOW RISK 4.4 - 7.1 AVERAGE RISK 7.1 - 11.0 MODERATE RISK >11.0 HIGH RISK Performed By: #### T SH, BNP, T7, LIPID, CMP ####[facility] [address] [place] [address]Dr. Dinah Rodriges Cholesterol [Mass/Vol] 153 mg/dL Normal <=200 The [facility] Comment on above: Performed By: #### T SH, BNP, T7, LIPID, CMP ####[facility] [address] [place], [place] [address]Dr. Dinah Rodriges Cholesterol in HDL [Mass/Vol] 54 mg/dL Normal 40-60 The [facility] Comment on above: Performed By: #### T SH, BNP, T7, LIPID, CMP ####[facility] [address] [place] [address]Dr. Dinah Rodriges Cholesterol in LDL [Mass/Vol] 78.8 mg/dL Normal The [facility] Comment on above: Performed By: #### T SH, BNP, T7, LIPID, CMP ####[facility] [address] [place] [address]Dr. Dinah Rodriges Cholesterol.total/Ch olesterol in HDL [Mass ratio] 2.8 {ratio} Normal The [facility] Comment on above: Performed By: #### T SH, BNP, T7, LIPID, CMP ####[facility] [address] [place] [address]Dr. Dinah Rodriges HDL NORMAL > or = 60 mg/dl - LOW CARDIOVASCULAR RISK <40 mg/dl - HIGH CARDIOVASCULAR RISK Normal The [facility] Comment on above: Performed By: #### T SH, BNP, T7, LIPID, CMP ####[facility] [address] [place], [place] [address]Dr. Dinah Rodriges LDL CALC NORMAL SEE BELOW Normal [facility] Comment on above: Result Comment: <100 mg/dl OPTIMAL 100 - 129 mg/dl NEAR OR ABOVE OPTIMAL 130 - 159 mg/dl BORDERLINE HIGH 160 - 189 mg/dl HIGH >190 mg/dl VERY HIGH Performed By: #### T SH, BNP, T7, LIPID, CMP ####[facility] [address] [place] [address]Dr. Dinah Rodriges Triglyceride [Mass/Vol] 101 mg/dL Normal <=150 The [facility] Comment on above: Performed By: #### T SH, BNP, T7, LIPID, CMP ####[facility] [address] [place] [address]Dr. Dinah Rodriges VLDL CALC 20.2 mg/dL Normal The [facility] Comment on above: Performed By: #### T SH, BNP, T7, LIPID, CMP ####[facility] [address] [place] [address]Dr. Dinah Rodriges MG MAMM SCREEN 3D TENZIN CADon 01-20-2022 MG MAMM SCREEN 3D TENZIN CAD Patient: NEREIDA AGOSTOSimran Exam Date: 01/20/2022 : 1940 Gender:F Ordering : DR JACINTO SERVIN . Admission #: [id number] Family : Order #: [id number] CLICK HERE TO VIEW EXAM RADIOLOGY REPORT [...] No Treatments None Family Cancers None LOCATION: [facility] BREAST COMPOSITION: Scattered areas fibroglandular density. FINDINGS: [...] Monzon MD on 01/20/2022 at 11:33 Normal [facility] PROF 14(COMP METB)on 022 Albumin [Mass/Vol] 3.3 g/dL Critically low 3.4-5.0 [facility] Comment on above: Performed By: #### T SH, BNP, T7, LIPID, CMP ####[facility] [address] [place] [address]Dr. Dinah Rodriges Albumin/Globulin [Mass ratio] 1.0 {ratio} Normal [facility] Comment on above: Performed By: #### T SH, BNP, T7, LIPID, CMP ####[facility] [address] [place] [id number]. Dinah Rodriges ALP [Catalytic activity/Vol] 69 U/L Normal 46-116 [facility] Comment on above: Performed By: #### T SH, BNP, T7, LIPID, CMP ####[facility] [address] [place] [address]Dr. Dinah Rodriges ALT [Catalytic activity/Vol] 6 U/L Critically low 14-59 [facility] Comment on above: Performed By: #### T SH, BNP, T7, LIPID, CMP ####[facility] [address] [place] [address]Dr. Dinah Rodriges Anion gap [Moles/Vol] 8.7 mmol/L Normal [facility] Comment on above: Performed By: #### T SH, BNP, T7, LIPID, CMP ####[facility] [address] [place], [place] [address]Dr. Dinah Rodriges AST [Catalytic activity/Vol] 12 U/L Critically low 15-37 The [facility] Comment on above: Performed By: #### T SH, BNP, T7, LIPID, CMP ####[facility] [address] [place], [place] [address]Dr. Dinah Rodriges Bilirubin [Mass/Vol] 0.3 mg/dL Normal 0.2-1.0 [facility] Comment on above: Performed By: #### T SH, BNP, T7, LIPID, CMP ####[facility] [address] [place], [place] [address]Dr. Dinah Rodriges Calcium [Mass/Vol] 9.3 mg/dL Normal 8.5-10.1 [facility] Comment on above: Performed By: #### T SH, BNP, T7, LIPID, CMP ####[facility] [address] [place], [place] [address]Dr. Dinah Rodriges Chloride [Moles/Vol] 104 mmol/L Normal 98-107 The [facility] Comment on above: Performed By: #### T SH, BNP, T7, LIPID, CMP ####[facility] [address] [place], [place] [address]Dr. Dinah Rodriges CO2 [Moles/Vol] 33.2 mmol/L Critically high 21.0-32.0 The [facility] Comment on above: Performed By: #### T SH, BNP, T7, LIPID, CMP ####[facility] [address] [place], [place] [address]Dr. Dinah Rodriges Creatinine [Mass/Vol] 1.11 mg/dL Critically high 0.55-1.02 [facility] Comment on above: Performed By: #### T SH, BNP, T7, LIPID, CMP ####[facility] [address] [place] [address]Dr. Lizlan Rodriges EGFR-AF TANZANIAN 57 mL/min/1.73m2 Critically low >=60 The [facility] Comment on above: Performed By: #### T SH, BNP, T7, LIPID, CMP ####[facility] [address] [place], [place] [address]Dr. Yilan Rodriges EGFR-NON AF TANZANIAN 47 mL/min/1.73m2 Critically low >=60 The [facility] Comment on above: Performed By: #### T SH, BNP, T7, LIPID, CMP ####[facility] [address] [place], [place] [address]Dr. Dinah Rodriges Globulin (S) [Mass/Vol] 3.4 g/dL Normal [facility] Comment on above: Performed By: #### T SH, BNP, T7, LIPID, CMP ####[facility] [address] [place], [place] [address]Dr. Lizlan Rodriges Glucose [Mass/Vol] 84 mg/dL Normal 74-106 [facility] Comment on above: Performed By: #### T SH, BNP, T7, LIPID, CMP ####[facility] [address] [place], [place] [address]Dr. Lizlan Rodriges Potassium [Moles/Vol] 4.9 mmol/L Normal 3.5-5.1 The [facility] Comment on above: Performed By: #### T SH, BNP, T7, LIPID, CMP ####[facility] [address] [place], [place] [address]Dr. Lizlan Rodriges Protein [Mass/Vol] 6.7 g/dL Normal 6.4-8.2 [facility] Comment on above: Performed By: #### T SH, BNP, T7, LIPID, CMP ####[facility] [address] [place], [place] [address]Dr. Lizlan Rodriges Sodium [Moles/Vol] 141 mmol/L Normal 136-145 [facility] Comment on above: Performed By: #### T SH, BNP, T7, LIPID, CMP ####[facility] [address] [place] [id number]. Dinah Rodriges Urea nitrogen [Mass/Vol] 18.0 mg/dL Normal 7.0-18.0 [facility] Comment on above: Performed By: #### T SH, BNP, T7, LIPID, CMP ####[facility] [address] [place] [id number]. Dinah Rodriges Urea nitrogen/Creatinine [Mass ratio] 16.2 mg/mg Normal [facility] Comment on above: Performed By: #### T SH, BNP, T7, LIPID, CMP ####[facility] [address] [place] [address]Dr. Dinah Rodriges TSHon 01-20-2022 TSH 1.061 uIU/mL Normal 0.358-3.740 [facility] Comment on above: Performed By: #### T SH, BNP, T7, LIPID, CMP ####[facility] [address] [place] [address]Dr. Dinah Rodriges TSH RANGE SEE BELOW Normal [facility] Comment on above: Result Comment: <0.3 4 UIU/ml HYPERTHYROID 0.34-5.60 UIU/ml EUTHYROID >5.60 UIU/ml HYPOTHYROID Performed By: #### T SH, BNP, T7, LIPID, CMP ####[facility] [address] [place] [address]Dr. Dinah Rodriges XR DEXA BONE DENSITYon 01-20 [...] DUDLEY RYDER Date: 2022-01-20 11:30 Normal [facility] Cardiovascular Lab Reporton 12-23-2018 Cardiovascular Lab Report [facility] MR #: [id number] Department of Physician: Martha Seymour M.D. Division of Service Date: 12/23/2018 Cardiology Birthdate: 1940 Adult Cardiovascular Room #: [place] [address] Cardiovascular Laboratory Report PROCEDURE: Transesophageal echocardiogram and cardioversion. INDICATION: Atrial fibrillation. FELLOW: Neto Doty MD PROCEDURE IN DETAIL: An informed consent was obtained from the patient after explaining the indication, risks and benefits, and alternatives. The patient understood and agreed and signed the consent form. The patient was brought to the bed laborer and transesophageal echocardiogram was performed under [...] will follow up with me in the [facility] in 2-4 weeks Electronically Signed by: Goldie Vaughan M.D. 01/05/2019 08:36 A Goldie Vaughan M.D. I was present for the entire procedure. Date Dict: 12/23/2018/03:28 P/Neto Doty MD Date Trans: 12/23/2018 04:19 P/beth [id number] cc: Jacinto Servin M.D. [address] Alek Barrios [facility] [address] Normal [facility] Cardiovascular Lab Reporton 12-16-2018 Cardiovascular Lab Report [facility] MR #: [id number] Department of Physician: Martha Ken M.D. Division of Service Date: 12/15/2018 Cardiology Birthdate: 1940 Adult Cardiovascular Room #: [id number] [place] [address] Cardiovascular Laboratory Report CLINICAL PRESENTATION: The patient is a 78-year-old female with past medical history significant for hypertension. She was admitted to [facility] with worsening shortness of breath. She was diagnosed with acute congestive heart failure and atrial fibrillation with a rapid ventricular rate. She was evaluated by my colleague, Dr. Lee, [place] [facility]. EKG showed ST elevations in the anterolateral leads and she was transferred urgently to [facility] due to possible acute myocardial infarction. [...] ultrasound guidance and micropuncture access technique, a 6-Danish sheath placed in the right common femoral [...] Cano M.D. Date Trans: 12/16/2018 06:03 A/beth [id number] cc: Jacinto Servin M.D. [address] [facility] [address] Peter Lee M.D. [facility] [place] [address] Normal [facility] BASIC METABOLIC PANELon 12-05 Calcium [Mass/Vol] 9.3 mg/dL Normal 8.6-10.[address] [facility] Comment on above: Order Comment: No: D o not add to previous draw Performed By: #### 4 6413, 29082, 85137, 29329, 73808 #### [facility] [address] [place] [address], [place] Chloride [Moles/Vol] 102 mmol/L Normal 98-107 [facility] Comment on above: Order Comment: No: D o not add to previous draw Performed By: #### 4 6413, 05597, 40269, 71437, 69371 #### [facility] [address] [place] [address], [place] CO2 [Moles/Vol] 27 mmol/L Normal 21-31 [facility] Comment on above: Order Comment: No: D o not add to previous draw Performed By: #### 4 6413, 36092, 76919, 42630, 38949 #### [facility] [address] [place] [address], [facility] Creatinine [Mass/Vol] 0.91 mg/dL Normal 0.60-1.20 [facility] Comment on above: Order Comment: No: D o not add to previous draw Performed By: #### 4 6413, 83745, 45270, 12714, 58361 #### [facility] [address] [place] [address], [facility] GFR/1.73 sq M predicted among blacks MDRD (S/P/Bld) [Vol rate/Area] mL/min/{1.73_m2} Normal >60 [facility] Comment on above: Order Comment: No: D o not add to previous draw Result Comment: Calc ulation may not be valid for patients over 70 years Performed By: #### 4 6413, 12656, 23647, 38115, 55059 #### [facility] [address] [place] [address], [facility] GFR/1.73 sq M predicted among non-blacks MDRD (S/P/Bld) [Vol rate/Area] mL/min/{1.73_m2} Normal >60 [facility] Comment on above: Order Comment: No: D o not add to previous draw Result Comment: Calc ulation may not be valid for patients over 70 years Performed By: #### 4 6413, 40993, 92061, 86573, 90623 #### [facility] [address] [place] [address], [place] Glucose [Mass/Vol] 130 mg/dL High 70-100 [facility] Comment on above: Order Comment: No: D o not add to previous draw Performed By: #### 4 6413, 92544, 82491, 57095, 72738 #### [facility] [address] [place] [address], [facility] Potassium [Moles/Vol] 3.5 mmol/L Normal 3.5-5.1 [facility] Comment on above: Order Comment: No: D o not add to previous draw Performed By: #### 4 6413, 18981, 94544, 78115, 38476 #### [facility] [address] [place] [address], [facility] Sodium [Moles/Vol] 140 mmol/L Normal 136-145 [facility] Comment on above: Order Comment: No: D o not add to previous draw Performed By: #### 4 6413, 04710, 16030, 80229, 57131 #### [facility] [address] [place] [address], [facility] Urea nitrogen [Mass/Vol] 19 mg/dL Normal 7-25 [facility] Comment on above: Order Comment: No: D o not add to previous draw Performed By: #### 4 6413, 11753, 50863, 44154, 71646 #### [facility] [address] [place] [address], [facility] BNP (B-TYPE NATRIURETIC PEPT CORI)on 12-15-2018 Natriuretic peptide B (Bld) [Mass/Vol] 369 pg/mL High 0-100 [facility] Comment on above: Order Comment: No: D o not add to previous draw Result Comment: Give n the appropriate clinical setting a BNP result of >100 pg/mL indicates congestive heart failure. Performed By: #### 8 5123, 46151 #### [facility] [address] [place] [address], [facility] CBC COMPLETE BLOOD COUNTon 0 12-15-2018 Erythrocyte distribution width (RBC) [Ratio] 12.9 % Normal 11.5-15.0 [facility] Comment on above: Order Comment: No: D o not add to previous draw Performed By: #### 5 0608 #### [facility] [address] Hematocrit (Bld) [Volume fraction] 39.0 % Normal 36.0-45.0 [facility] Comment on above: Order Comment: No: D o not add to previous draw Performed By: #### 5 0608 #### [facility] [address] [place] [address], [facility] Hemoglobin (Bld) [Mass/Vol] 12.6 g/dL Normal 12.0-15.0 [facility] Comment on above: Order Comment: No: D o not add to previous draw Performed By: #### 5 0608 #### [facility] [address] [place] [address], [facility] MCH (RBC) [Entitic mass] 31.6 pg Normal 27.0-33.0 [facility] Comment on above: Order Comment: No: D o not add to previous draw Performed By: #### 5 0608 #### [facility] [address] [place] [address], [facility] MCHC (RBC) [Mass/Vol] 32.3 g/dL Normal 32.0-35.0 [facility] Comment on above: Order Comment: No: D o not add to previous draw Performed By: #### 5 0608 #### [facility] [address] [place] [address], [facility] MCV (RBC) [Entitic vol] 97.7 fL Normal 82.0-98.0 [facility] Comment on above: Order Comment: No: D o not add to previous draw Performed By: #### 5 0608 #### [facility] [address] [facility] [place] [address], [facility] Nucleated RBC/100 WBC (Bld) [Ratio] 0 % Normal 0-0 [facility] Comment on above: Order Comment: No: D o not add to previous draw Performed By: #### 5 0608 #### [facility] [address] [place] [address], [facility] PLAT CNT 252 10*3/uL Normal 150-400 [facility] Comment on above: Order Comment: No: D o not add to previous draw Performed By: #### 5 0608 #### [facility] [address] [place] [address], [facility] RBC (Bld) [#/Vol] 3.99 10*6/uL Normal 3.80-5.00 [facility] Comment on above: Order Comment: No: D o not add to previous draw Performed By: #### 5 0608 #### [facility] [address] [place] [address], [facility] WBC (Bld) [#/Vol] 8.04 10*3/uL Normal 4.00-10.60 [facility] Comment on above: Order Comment: No: D o not add to previous draw Performed By: #### 5 0608 #### [facility] [address] HEMOGLOBIN A1Con 12-15-2018 HbA1c (Bld) [Mass fraction] 108 mg/dL Normal 70-126 [facility] Comment on above: Order Comment: No: D o not add to previous draw Performed By: #### 8 5123, 87640 #### [facility] [address] [place] [address], [facility] HbA1c (Bld) [Mass fraction] 5.4 % Normal 4.0-6.0 [facility] Comment on above: Order Comment: No: D o not add to previous draw Performed By: #### 8 5123, 08068 #### [facility] [address] [place] [address], [facility] LIPID PROFILEon 12-15-2018 Cholesterol [Mass/Vol] 138 mg/dL Normal 120-200 [facility] Comment on above: Order Comment: No: D o not add to previous draw Result Comment: CHOL ESTEROL REFERENCE RANGE: 20 YEARS AND OLDER CARDIOVASCULAR RISK Less than 200 mg/dl Low Risk 200 to 239 mg/dl Borderline Risk 240 mg/dl and greater High Risk Performed By: #### 4 6413, 91459, 11834, 88108, 36465 #### [facility] [address] [place] [address], [facility] Cholesterol in HDL [Mass/Vol] 36 mg/dL Normal 23-92 [facility] Comment on above: Order Comment: No: D o not add to previous draw Result Comment: Slig ht variation in normal range could be due to gender and/or age. HDL CHOLESTEROL REFERENCE RANGE: 20 years and older Cardiovascular Risk > or =60 mg/dL Desirable 40 TO 59 mg/dL Low Risk <40 mg/dL High Risk Performed By: #### 4 6413, 78519, 03869, 29188, 81414 #### [facility] [address] [place] [address], [facility] Cholesterol in LDL [Mass/Vol] 81 mg/dL Normal 0-130 [facility] [facility] Comment on above: Order Comment: No: D o not add to previous draw Result Comment: LDL IS A CALCULATION LDL IS ONLY VALID IF THE TRIG IS LESS THAN 400. Performed By: #### 4 [id number], [id number], 52520, 11457, 03561 #### [facility] [address] [place] [address], [facility] Cholesterol.total/Ch olesterol in HDL [Mass ratio] 3.8 {ratio} Normal .0-4.5 [facility] Comment on above: Order Comment: No: D o not add to previous draw Performed By: #### 4 [id number], 25883, 51544, 21897, 90191 #### [facility] [address] [place] [address], [place] NON-HDL CHOLESTEROL 102 mg/dL Normal [facility] Comment on above: Order Comment: No: D o not add to previous draw Performed By: #### 4 [id number], 77543, 10577, 28919, 96632 #### [facility] [address] Triglyceride [Mass/Vol] 106 mg/dL Normal 40-149 [facility] Comment on above: Order Comment: No: D o not add to previous draw Result Comment: TRIG LYCERIDE REFERENCE RANGE: 20 YEARS AND OLDER CARDIOVASCULAR RISK LESS THAN 150 mg/dl LOW RISK 150 TO 199 mg/dl BORDERLINE RISK 200 mg/dl AND GREATER HIGH RISK Performed By: #### 4 [id number], 15681, 98973, 25011, 52610 #### [facility] [address] [facility]. [address] VLDL CHOL 21 mg/dL Normal 0-40 [facility] Comment on above: Order Comment: No: D o not add to previous draw Performed By: #### 4 [id number], 38595, 41590, 54897, 80932 #### [facility] [address] [facility] [place], [place] [id number] [place] [address] MAGNESIUM BLOODon 12-15-2018 Magnesium [Mass/Vol] 1.9 mg/dL Normal 1.9-2.7 [facility] Comment on above: Order Comment: No: D o not add to previous draw Performed By: #### 4 [id number], 19528, 82227, 63355, 30772 #### [facility] [address] [facility] [place] [address], [facility] PHOSPHORUS BLOODon 9 Phosphate [Mass/Vol] 4.5 mg/dL Normal 2.5-5.0 [facility] Comment on above: Order Comment: haider figueroa request Performed By: #### 4 [id number], 75447, 06773, 92287, 69928 #### [facility] [address] [facility] [place] [address], [facility] PORTABLE CHEST 1 VIEWon 12-05 PORTABLE CHEST 1 VIEW [facility] Department of Radiology [address] [place] [address] Patient Name: NEREIDA AGOSTO : 1940 Sex: F Age: Race: White Pt. Location: [address] [place] [address] Patient Status: I Ordered Date: 12/15/2018 2:10:00 [...] failure Electronically signed by:Bharti Bazan. Transcribed by: [email or web address], User Resident: Electronically Signed by: BHARTI BAZAN @ 12/15/2018 03:50 PM Normal [facility] Comment on above: Order Comment: R/O C HF TSH3on 12-15-2018 TSH 3RD GENERATION 0.86 uIU/mL Normal 0.34-5.60 [facility] Comment on above: Performed By: #### 4 [id number], 17903, 09175, 43596, 89393 #### [facility] [address] [place] [address], [facility] Vital Signs Date Time Vital Sign Value Performing Clinician Clemencia larry 03-15-2024 13:44-0400 Blood Pressure Location Rashi NILL [facility] [place] 03-15-2024 13:44-0400 Diastolic blood pressure 80 mm[Hg] Rashi NILL [facility] [place] 03-15-2024 13:44-0400 Heart rate 76 /min Rashi NILL [facility] [place] 03-15-2024 13:44-0400 Respiratory rate 16 /min Rashi NILL [facility] [place] 03-15-2024 13:44-0400 Systolic blood pressure 118 mm[Hg] Rashi NILL [facility] [place] 02-02-2023 14:45-0400 Blood Pressure Location Rashi NILL [facility] [place] 02-02-2023 14:45-0400 Diastolic blood pressure 76 mm[Hg] Rashi NILL [facility] [place] 02-02-2023 14:45-0400 Heart rate 74 /min Rashi NILL [facility] [place] 02-02-2023 14:45-0400 Respiratory rate 16 /min Rashi NILL [facility] [place] 02-02-2023 14:45-0400 Systolic blood pressure 126 mm[Hg] Rashi NILL [facility] Encounters Encounter Date Encounter Type Care Provider Facility Start: 04-13-2024 End: 04-13-2024 ambulatory ROD AGUAYO Not Available Start: 03-29-2024 End: 03-29-2024 ambulatory ROD AGUAYO Not Available Start: 03-15-2024 End: 03-15-2024 ambulatory Rashi JOHN Facility: [place] Start: 03-15-2024 End: 03-15-2024 Patient encounter procedure Rashi R NILL JolynnJames [facility] [place] Start: 02-07-2024 End: 02-07-2024 [facility] Start: 10-28-2023 End: 10-28-2023 ambulatory KHANG [facility] Start: 08-05-2023 End: 08-05-2023 ambulatory [facility] Start: 03-05-2023 End: 03-05-2023 Patient encounter procedure Rashi R JAXL [facility] [place] Start: 02-19-2023 End: 02-19-2023 ambulatory [facility] Start: 02-02-2023 End: 02-02-2023 Patient encounter procedure Rashi CAMARAL [facility] [place] Start: 01-21-[address] JACINTO SERVIN . Facili ty:[facility] Start: 01-19-2023 End: 01-19-[address] JACINTO SERVIN . Facility:[facility] Start: 01-18-2023 End: 01-19-[address] JACINTO SERVIN . Facility:[facility] Start: 01-20-2022 End: 01-21-[address] JACINTO SERVIN . Facility:[facility] Start: 12-23-2018 End: 12-24-2018 Patient encounter procedure AB Harvey VAUGHAN Facility:[facility] Start: 12-15-2018 End: 12-16-2018 Evaluation and management of inpatient PETER LEE Facility:[facility] Procedures Date Procedure Procedure Detail Performing [...] Date Immunization Notes Care Provider [facility] 07-21-2022 influenza virus vaccine, unspecified formulation Rashi JOHN [facility] [place] 08-28-2021 SARS-CoV-2 (COVID-19 ) mRNA-1273 vaccine Rashi JOHN [facility] [place] 11-14-2020 SARS-CoV-2 (COVID-19 ) mRNA-1273 vaccine Rashi JOHN [facility] [place] 10-18-2020 SARS-CoV-2 (COVID-19 ) mRNA-1273 vaccine Rashi JOHN [facility] [place] Payers Date Payer Category Payer [employer]) [id number] 2018 Medicare [id number] 1957 [employer] [id number] 1957 Medicare [id number] 1940 Unknown [id number] 1940 Unknown [id number] 1940 Unknown [id number] 1940 Unknown [id number] 1940 Unknown [id number] 1940 Unknown [id number] 1940 Unknown [id number] 1940 Unknown [id number] 1940 Unknown [id number] 1940 Unknown [id number] Social History Date Type Detail Facility Start: 02-02-2023 End: 03-15-2024 Tobacco smoking status Ex-smoker (finding) [facility] [place] Tobacco smoking status Never [facility] [place] Sex Assigned At Female [facility] Functional Status Date Assessment Result Facility 03-15-2024 Functional Status N/A [facility] [place] 02-02-2023 Functional Status N/A [facility] Progress note 02-07-2024 Note Date & Type Note Facility 02-07-2024 Note [facility] Clinic Note Chief Complaint: Patient [...] is seen in (more content not included)... [facility] 10-28-2023 Note Date & Type Note Facility 10-28-2023 Note [facility] [place] [facility] Note SUBJECTIVE No chief complaint on [...] 4.9, GFR 47 (more content not included)... [facility] note 10-28-2023 Note Date & [...] All other systems reviewed and are negative. [facility] Progress note 08-05-2023 Note Date & [...] All other systems reviewed and are negative. [facility] Progress note 08-05-2023 Note Date & [...] aorta. - Succes (more content not included)... [facility] Progress note 06-16-2023 Note Date & Type Note Facility 02-19-2023 [...] 08/21/2023). Flaquito Rojas (more content not included)... [facility] Evaluation + Plan note Note Date & Type Note Facility Evaluation + Plan note No data available for this section [facility] [place] [facility] Discharge instructions Note Date & Type Note Facility Hospital Discharge instructions No data available for this section [facility] [place] Progress note Note Date & Type Note Facility Progress note No data available for this section [facility] [place] Summary Purpose Family History No Family History Records FoundNo Family History Records FoundNo Family History Records FoundNo Family History Records Found No data available for this section No Family History Records Found Advance Directives No Advanced Directives Records FoundNo Advanced Directives Records FoundNo Advanced Directives Records FoundNo Advanced Directives Records FoundNo Advanced Directives Records Found Hospital Course Note MR#: [id number] [facility] Pt. Name: Nereida Agosto Admitted: 12/15/2018 [...] was sent to the ER. Apparently in [facility], the patient was found to have decompensated heart failure with new onset of atrial fibrillation. She was in rapid ventricular response. The patient was admitt (more content not included)... Additional Source Comments INFORMATION SOURCE (unrecogn ized section and content) DATE CREATED AUTHOR 04/29/2019 [facility] DATE CREATED AUTHOR AUTHOR'S ORGANIZ ATION 01/19/[address] DATE CREATED AUTHOR AUTHOR'S ORGANIZ ATION 02/07/2024 [facility] DATE CREATED AUTHOR AUTHOR'S ORGANIZ ATION 03/21/2024 [facility] DATE CREATED AUTHOR AUTHOR'S ORGANIZ ATION 04/15/2024 [facility] EPIC Patient Care team informatio n (unrecognized section and content) Personnel Name: Jacinto Servin MD Address: Address: [address] [place] [address] Personnel Name: Jacinto Servin MD Address: Address: [address] [place] [address] Personnel Name: Jacinto Servin MD Address: Address: [address] [place] [address] FOR RECORDS PERTAINING TO PATIENTS WHO ARE [...] BE BASED ON THE PRIMARY CLINICAL RECORDS. [facility] [employer] [facility]. provides no warranty or guarantee of the accuracy or completeness of information in this document.
== END 2024-04-17 13:31 | disposition home or self-care (01) ==
LOC: PST 04-18 07:24
PROVIDERS: PCP Family Medicine; Visit Provider Surgery
DX: Z01.818 Encounter for other preprocedural examination (principal); Z86.010 Personal history of colon polyps

== ENCOUNTER 2024-04-24 09:11 | Outpatient (OUT) | payer MEDICARE, OTHER, SELFPAY ==
[2024-04-24 09:33] LABS: Basophils Percent Auto 0.6 % (0.2-2.0); Eosinophils Absolute Auto 0.1 10^3/uL (0.0-0.7); Eosinophils Percent Auto 1.3 % (0.9-7.0); Hematocrit 41.9 % (36.0-48.0); Hemoglobin 13.5 g/dL (12.0-16.0); Immature Granulocytes Abs Auto 0.02 10^3/uL (0.00-0.03); Immature Granulocytes Pct Auto 0.3 % (0.0-0.5); Lymphocytes Absolute Auto 1.2 10^3/uL (1.2-3.8); Lymphocytes Percent Auto 17.1 % (20.5-60.0); Mean Corpuscular HGB Conc 32.2 g/dL (29.9-35.2); Mean Corpuscular Hemoglobin 31.8 pg (26.7-34.0); Mean Corpuscular Volume 98.8 fL (81.0-99.0); Mean Platelet Volume 10.9 fL (9.5-13.5); Monocytes Absolute Auto 0.4 10^3/uL (0.3-0.8); Monocytes Percent Auto 5.9 % (1.7-12.0); Neutrophils Absolute Auto 5.3 10^3/uL (1.4-6.5); Neutrophils Percent Auto 74.8 % (43.0-75.0); Platelet Count 170 10^3/uL (150-450); Red Blood Count 4.24 10^6/uL (4.20-5.40); Red Cell Distribution Width 12.4 % (11.0-15.0); White Blood Count 7.1 10^3/uL (4.0-11.0)
--- OUTSIDE RECORDS SUMMARY | 2024-04-24 09:34 | XMS_ITS | CCD ---
Author Organization [facility] Care Team Providers Care Certified Coding Specialist Name Role Phone PETER LEE Referring Unavailable JACINTO SERVIN Primary Care Unavailable CHAPITO SHIPLEY Attending Unavailable CHAPITO SHIPLEY Admitting Unavailable [facility] Procedure Practitioner Unavailab JJ Rendon Surgeon Unavailable [...] Unavailable HOY ., DR CASEY Attending Unavailable [place], DR KELSI Aguirre Consulting Unavailable ZIEBER, DR DUDLEY Lee Consulting Unavailable HOY ., DR CASEY Admitting Unavailable HOY ., DR CASEY Primary Care Unavailable HOY ., DR CASEY Attending Unavailable HOY ., DR CASEY Admitting Unavailable HOY ., DR CASEY Primary Care Unavailable HOY ., DR CASEY Consulting Unavailable YOLANDAY ., DR CASEY Attending Unavailable Jacinto Servin Primary Care Physician FLAQUITO BALLARD Attending Unavailable KHANG LORENZO Attending Unavailable FLAQUITO BALLARD Attending Unavailable ELTASHELLY, EHAB Attending Unavailable Rashi JOHN Attending Unavailable ROD AGUAYO Attending Unavailable ROD AGUAYO Attending Unavailable ROD AGUAYO Attending Unavailable Allergies Allergy Classification Reported Allergen(s) Allergy Type Date of Onset Reaction(s) Facility (4 sources) Sulfonamides (Antibiotic); Translations: [sulfa drugs] Drug allergy Unknown (qualifier value) General [facility] [place] (1 source) Sulfonamides (Antibiotic); Translations: [SULFA (SULFONAMIDE ANTIBIOTICS)] Propensity to adverse reactions to drug (disorder) 2 [facility] Repository (1 source) ALPRAZolam; Translations: [Xanax] Drug Allergy [facility] Repository Medications Current Medications Medication [...] polyps Your Care Team Attending Physician - Rashi [...] choosing us for your care. [facility] General Surgery Office/Clini c Noteon [...] Family Hist (more content not included)... Normal [facility] Comment on above: Result Comment: Elec tronically Signed By: ALVARO AHMADI, Rashi Rayo.[email or web address]\Date and Time Signed: 03/15/24 14:08 EDT Office Visiton 02-07-2024 Follow-up visit [id number] Nereida Agosto 1940 F Date Provider Department Center 02/07/2024 271-GOLDIE VAUGHAN KIM Cook Family History Problem Relation Age of Onset No Known Problems Mother No Known Problems Father Family Status - Relation Status Age at Mother Father Level of Service:53426 [facility] OFFICE/OUTPATIENT ESTABLISHED LOW MDM 20 MIN Normal [facility] Office Visiton 10-28-2023 Follow-up visit [id number] Nereida Agosto 1940 F Date Provider Department Center 10/28/2023 Yu-KHANG LORENZO Family History Problem Relation Age of Onset No Known Problems Mother No Known Problems Father Family Status - Relation Status Age at Mother Father Level of Service:71686 [place] OFFICE/OUTPATIENT ESTABLISHED MOD MDM 30 MIN Reason for Visit and Comments: Congestive Heart Failure [127] Dizziness [614764] Normal [facility] Office Visiton 08-05-2023 Follow-up visit [id number] StanislawrubioharveyNereida P 1940 Date Provider Department Center 08/05/202310039-LFEZUEPZIFLAQUITO MAN Anneliese Hos Family History Problem Relation Age of Onset No Known Problems Mother No Known Problems Father Family Status - Relation Status Age at Mother Father Level of Service:46699 [facility] OFFICE/OUTPATIENT ESTABLISHED MOD MDM 30-39 MIN Normal [facility] Office Visiton 02-19-2023 Follow-up visit [id number] StanislawrubioharveyNerieda P 1940 F Date Provider Department Center 02/19/2023 [id number] ANAYA Hos Family History Problem Relation Age of Onset No Known Problems Mother No Known Problems Father Family Status - Relation Status Age at Mother Father Level of Service:84565 [facility] OFFICE/OUTPATIENT ESTABLISHED MOD MDM 30-39 MIN Reason for Visit and Comments: Follow-up [194785] - Pt is here for sx clearance scheduled for echo 02/17 [facility] OCC BLD IMMUNO SCREENon 01-04 OCCULT BLOOD Positive Abnormal NEGATIVE [facility] [place] [facility] Comment on above: Performed By: #### O BSCRN #### [facility] [address] [place] [address] Dr. Dinah Rodriges CBC AUTO DIFFon 01-18-2023 BASO # 0.0 103/ul Normal 0.0-0.1 [facility] [place] [facility] Comment on above: Performed By: #### C BC #### [facility] [address] [place] [address] Dr. Dinah Rodriges Basophils/100 WBC (Bld) 0.6 % Normal 0.2-2.0 [facility] Comment on above: Performed By: #### C BC #### [facility] [address] [place] [address] Dr. Dinah Rodriges EO # 0.1 103/ul Normal 0.0-0.7 [facility] [place] [facility] Comment on above: Performed By: #### C BC #### [facility] [address] [place] [address] Dr. Dinah Rodriges Eosinophils/100 WBC (Bld) 1.8 % Normal 0.9-7.0 [facility] [place] [facility] Comment on above: Performed By: #### C BC #### [facility] [address] [place] [address] Dr. Dinah Rodriges Erythrocyte distribution width (RBC) [Ratio] 12.7 % Normal 11.0-15.0 [facility] Comment on above: Performed By: #### C BC #### [facility] [address] [place] [address] Dr. Dinah Rodriges Hematocrit (Bld) [Volume fraction] 39.7 % Normal 36.0-48.0 [facility] Comment on above: Performed By: #### C BC #### [facility] [address] [place] [address] Dr. Dinah Rodriges Hemoglobin (Bld) [Mass/Vol] 12.6 g/dL Normal 12.0-16.0 [facility] Comment on above: Performed By: #### C BC #### [facility] [address] [place] [address] Dr. Dinah Rodriges IG # 0.01 10e3/ul Normal 0.00-0.03 [facility] [place] [facility] Comment on above: Performed By: #### C BC #### [facility] [address] [place] [address] Dr. Dinah Rodriges IG % 0.2 % Normal 0.0-0.5 [facility] [place] [facility] Comment on above: Performed By: #### C BC #### [facility] [address] [place] [address] Dr. Dinah Rodriges LYMPH # 1.5 103/ul Normal 1.2-3.8 [facility] [place] [facility] Comment on above: Performed By: #### C BC #### [facility] [address] [place] [address] Dr. Dinah Rodriges Lymphocytes/100 WBC (Bld) 28.7 % Normal 20.5-60.0 [facility] Comment on above: Performed By: #### C BC #### [facility] [address] [place] [address] Dr. Dinah Rodriges MANUAL DIFF REQ NO Normal [facility] Comment on above: Performed By: #### C BC #### [facility] [address] [place] [address] Dr. Dinah Rodriges MCH (RBC) [Entitic mass] 30.7 pg Normal 26.7-34.0 [facility] Comment on above: Performed By: #### C BC #### [facility] [address] [place] [address] Dr. Dinah Rodriges MCHC (RBC) [Mass/Vol] 31.7 g/dL Normal 29.9-35.2 [facility] Comment on above: Performed By: #### C BC #### [facility] [address] [place] [address] Dr. Dinah Rodriges MCV (RBC) [Entitic vol] 96.8 fL Normal 81.0-99.0 [facility] Comment on above: Performed By: #### C BC #### [facility] [address] [place] [address] Dr. Dinah Rodriges MONO # 0.4 103/ul Normal 0.3-0.8 [facility] Comment on above: Performed By: #### C BC #### [facility] [address] [place] [address] Dr. Dinah Rodriges Monocytes/100 WBC (Bld) 7.3 % Normal 1.7-12.0 [facility] Comment on above: Performed By: #### C BC #### [facility] [address] [place] [address] Dr. Dinah Rodriges NEUT # 3.1 103/ul Normal 1.4-6.5 [facility] Comment on above: Performed By: #### C BC #### [facility] [address] [place] [address] Dr. Dinah Rodriges Neutrophils/100 WBC (Bld) 61.4 % Normal 43.0-75.0 [facility] Comment on above: Performed By: #### C BC #### [facility] [address] [place] [address] Dr. Dinah Rodriges Platelet mean volume (Bld) [Entitic vol] 9.7 fL Normal 9.5-13.5 [facility] Comment on above: Performed By: #### C BC #### [facility] [address] [address] [address] Dinah Rodriges PLT 163 103/ul Normal 150-450 [facility] Comment on above: Performed By: #### C BC #### [facility] [address] [address] [address] Dinah Rodriges RBC 4.10 106/ul Critically low 4.20-5.40 [facility] Comment on above: Performed By: #### C BC #### [facility] [address] [address] [address] Dinah Rodriges WBC 5.1 103/ul Normal 4.0-11.0 [facility] Comment on above: Performed By: #### C BC #### [facility] [address] [address] [address] Dinah Rodriges FREE T3on 01-18-2023 FREE T3 2.11 pg/mlL Critically low 2.18-3.98 [facility] Comment on above: Performed By: #### C MP, TSH, T4, LIPID, FT3 #### [facility] [address] [address] [address] Dinah Rodriges GLYCOHEMOGLOBIN A1Con 2022 ADA RECOMMENDATION SEE BELOW Normal [facility] Comment on above: Result Comment: ADA RECOMMENDED LIMIT 4.0 - 6.0 ADA THERAPEUTIC TARGET < 7.0 ACTION SUGGESTED > 7.0 Performed By: #### A 1C ####[facility] [address] [address]Dr. Dinah Rodriges Glucose [Mass/Vol] 105 mg/dL Normal [facility] Comment on above: Performed By: #### A 1C ####[facility] [address] [id number]. Dinah Rodriges HbA1c (Bld) [Mass fraction] 5.3 % Normal 4.5-6.2 [facility] Comment on above: Performed By: #### A 1C ####[facility] [address] [place], [place] [address]KyDr. Dinah Rodriges LIPID PROFILEon 01-18-2023 CHOL-HDL RATIO NORM SEE BELOW Normal [facility] Comment on above: Result Comment: 3.3 - 4.4 LOW RISK 4.4 - 7.1 AVERAGE RISK 7.1 - 11.0 MODERATE RISK >11.0 HIGH RISK Performed By: #### C MP, TSH, T4, LIPID, FT3 #### [facility] [address] [address] [address] Dinah Rodriges Cholesterol [Mass/Vol] 168 mg/dL Normal <=200 [facility] Comment on above: Performed By: #### C MP, TSH, T4, LIPID, FT3 #### [facility] [address] [address] [address] Dinah Rodriges Cholesterol in HDL [Mass/Vol] 61 mg/dL Critically high 40-60 [facility] Comment on above: Performed By: #### C MP, TSH, T4, LIPID, FT3 #### [facility] [address] [address] [address] Dinah Rodriges Cholesterol in LDL [Mass/Vol] 94.0 mg/dL Normal [facility] Comment on above: Performed By: #### C MP, TSH, T4, LIPID, FT3 #### [facility] [address] [address] [address] Dinah Rodriges Cholesterol.total/Ch olesterol in HDL [Mass ratio] 2.8 {ratio} Normal [facility] Comment on above: Performed By: #### C MP, TSH, T4, LIPID, FT3 #### [facility] [address] [address] [address] Dinah Rodriges HDL NORMAL > or = 60 mg/dl - LOW CARDIOVASCULAR RISK <40 mg/dl - HIGH CARDIOVASCULAR RISK Normal [facility] Comment on above: Performed By: #### C MP, TSH, T4, LIPID, FT3 #### [facility] [address] [address] [address] Dinah Rodriges LDL CALC NORMAL SEE BELOW Normal [facility] Comment on above: Result Comment: <100 mg/dl OPTIMAL 100 - 129 mg/dl NEAR OR ABOVE OPTIMAL 130 - 159 mg/dl BORDERLINE HIGH 160 - 189 mg/dl HIGH >190 mg/dl VERY HIGH Performed By: #### C MP, TSH, T4, LIPID, FT3 #### [facility] [address] [place] [address] Dr. Dinah Rodriges Triglyceride [Mass/Vol] 65 mg/dL Normal <=150 [facility] Comment on above: Performed By: #### C MP, TSH, T4, LIPID, FT3 #### [facility] [address] [address] [address] Dinah Rodriges VLDL CALC 13.0 mg/dL Normal [facility] Comment on above: Performed By: #### C MP, TSH, T4, LIPID, FT3 #### [facility] [address] [place] [address] Dr. Dinah Rodriges PROF 14(COMP METB)on 023 Albumin [Mass/Vol] 3.4 g/dL Normal 3.4-5.0 [facility] Comment on above: Performed By: #### C MP, TSH, T4, LIPID, FT3 #### [facility] [address] [place] [address] Dr. Dinah Rodriges Albumin/Globulin [Mass ratio] 1.0 {ratio} Normal [facility] Comment on above: Performed By: #### C MP, TSH, T4, LIPID, FT3 #### [facility] [address] [place] [address] Dr. Dinah Rodriges ALP [Catalytic activity/Vol] 59 U/L Normal 46-116 [facility] Comment on above: Performed By: #### C MP, TSH, T4, LIPID, FT3 #### [facility] [address] [place] [address] Dr. Dinah Rodriges ALT [Catalytic activity/Vol] 13 U/L Critically low 14-59 [facility] Comment on above: Performed By: #### C MP, TSH, T4, LIPID, FT3 #### [facility] [address] [place] [address] Dr. Dinah Rodriges Anion gap [Moles/Vol] 10.7 mmol/L Normal [facility] Comment on above: Performed By: #### C MP, TSH, T4, LIPID, FT3 #### [facility] [address] [address] [address] Dinah Rodriges AST [Catalytic activity/Vol] 14 U/L Critically low 15-37 [facility] Comment on above: Performed By: #### C MP, TSH, T4, LIPID, FT3 #### [facility] [address] [address] [address] Dinah Rodriges Bilirubin [Mass/Vol] 0.3 mg/dL Normal 0.2-1.0 [facility] Comment on above: Performed By: #### C MP, TSH, T4, LIPID, FT3 #### [facility] [address] [address] [address] Dinah Rodriges Calcium [Mass/Vol] 9.4 mg/dL Normal 8.5-10.1 [facility] Comment on above: Performed By: #### C MP, TSH, T4, LIPID, FT3 #### [facility] [address] [address] [address] Dinah Rodriges Chloride [Moles/Vol] 106 mmol/L Normal 98-107 [facility] [place] [facility] Comment on above: Performed By: #### C MP, TSH, T4, LIPID, FT3 #### [facility] [address] [address] [address] Dinah Rodriges CO2 [Moles/Vol] 31.9 mmol/L Normal 21.0-32.0 [facility] Comment on above: Performed By: #### C MP, TSH, T4, LIPID, FT3 #### [facility] [address] [address] [address] Dinah Rodriges Creatinine [Mass/Vol] 0.95 mg/dL Normal 0.55-1.02 [facility] Comment on above: Performed By: #### C MP, TSH, T4, LIPID, FT3 #### [facility] [address] [address] [address] Dinah Rodriges EGFR-AF NEW ZEALANDER >60 Normal >=60 [facility] Comment on above: Performed By: #### C MP, TSH, T4, LIPID, FT3 #### [facility] [address] [place] [address] Dr. Dinah Rodriges EGFR-NON AF NEW ZEALANDER 57 mL/min/1.73m2 Critically low >=60 [facility] [place] [facility] Comment on above: Performed By: #### C MP, TSH, T4, LIPID, FT3 #### [facility] [address] [place] [address] Dr. Dinah Rodriges Globulin (S) [Mass/Vol] 3.4 g/dL Normal [facility] [place] [facility] Comment on above: Performed By: #### C MP, TSH, T4, LIPID, FT3 #### [facility] [address] [place] [address] Dr. Dinah Rodriges Glucose [Mass/Vol] 88 mg/dL Normal 74-106 [facility] Comment on above: Performed By: #### C MP, TSH, T4, LIPID, FT3 #### [facility] [address] [place] [address] Dr. Dinah Rodriges Potassium [Moles/Vol] 4.6 mmol/L Normal 3.5-5.1 [facility] [place] [facility] Comment on above: Performed By: #### C MP, TSH, T4, LIPID, FT3 #### [facility] [address] [place] [address] Dr. Dinah Rodriges Protein [Mass/Vol] 6.8 g/dL Normal 6.4-8.2 [facility] Comment on above: Performed By: #### C MP, TSH, T4, LIPID, FT3 #### [facility] [address] [place] [address] Dr. Dinah Rodriges Sodium [Moles/Vol] 144 mmol/L Normal 136-145 [facility] Comment on above: Performed By: #### C MP, TSH, T4, LIPID, FT3 #### [facility] [address] [place] [address] Dr. Dinah Rodriges Urea nitrogen [Mass/Vol] 18.0 mg/dL Normal 7.0-18.0 [facility] Comment on above: Performed By: #### C MP, TSH, T4, LIPID, FT3 #### [facility] [address] [address] [address] Dinah Rodriges Urea nitrogen/Creatinine [Mass ratio] 18.9 mg/mg Normal [facility] Comment on above: Performed By: #### C MP, TSH, T4, LIPID, FT3 #### [facility] [address] [address] [address] Dinah Rodriges T4on 01-18-2023 T4 [Mass/Vol] 9.30 ug/dL Normal 4.80-13.90 [facility] Comment on above: Performed By: #### C MP, TSH, T4, LIPID, FT3 #### [facility] [address] [place] [address] Dr. Dinah Rodriges TSHon 01-18-2023 TSH 0.872 uIU/mL Normal 0.358-3.740 [facility] Comment on above: Performed By: #### C MP, TSH, T4, LIPID, FT3 #### [facility] [address] [place] [address] Dr. Dinah Rodriges BNPon 01-20-2022 Natriuretic peptide B (Bld) [Mass/Vol] 464.0 pg/mL Normal <=1,800.0 [facility] Comment on above: Performed By: #### T SH, BNP, T7, LIPID, CMP ####[facility] [address] [address]Dr. Dinah Rodriges CBC AUTO DIFFon 01-20-2022 BASO # 0.0 103/ul Normal 0.0-0.1 [facility] Comment on above: Performed By: #### C BC #### [facility] [address] [place] [address] Dr. Dinah Rodriges Basophils/100 WBC (Bld) 0.4 % Normal 0.2-2.0 [facility] Comment on above: Performed By: #### C BC #### [facility] [address] [place] [address] Dr. Dinah Rodriges EO # 0.1 103/ul Normal 0.0-0.7 [facility] Comment on above: Performed By: #### C BC #### [facility] [address] [place] [address] Dr. Dinah Rodriges Eosinophils/100 WBC (Bld) 1.9 % Normal 0.9-7.0 [facility] Comment on above: Performed By: #### C BC #### [facility] [address] [place] [address] Dr. Dinah Rodriges Erythrocyte distribution width (RBC) [Ratio] 12.7 % Normal 11.0-15.0 [facility] Comment on above: Performed By: #### C BC #### [facility] [address] [place] [address] Dr. Dinah Rodriges Hematocrit (Bld) [Volume fraction] 35.0 % Critically low 36.0-48.0 [facility] Comment on above: Performed By: #### C BC #### [facility] [address] [place] [address] Dr. Dinah Rodriges Hemoglobin (Bld) [Mass/Vol] 11.5 g/dL Critically low 12.0-16.0 [facility] Comment on above: Performed By: #### C BC #### [facility] [address] [place] [address] Dr. Dinah Rodriges IG # 0.01 10e3/ul Normal 0.00-0.03 [facility] Comment on above: Performed By: #### C BC #### [facility] [address] [place] [address] Dr. Dinah Rodriges IG % 0.2 % Normal 0.0-0.5 [facility] Comment on above: Performed By: #### C BC #### [facility] [address] [place] [address] Dr. Dinah Rodriges LYMPH # 1.4 103/ul Normal 1.2-3.8 [facility] Comment on above: Performed By: #### C BC #### [facility] [address] [place] [address] Dr. Dinah Rodriges Lymphocytes/100 WBC (Bld) 26.9 % Normal 20.5-60.0 [facility] Comment on above: Performed By: #### C BC #### [facility] [address] [place] [address] Dr. Dinah Rodriges MANUAL DIFF REQ NO Normal [facility] Comment on above: Performed By: #### C BC #### [facility] [address] [place] [address] Dr. Dinah Rodriges MCH (RBC) [Entitic mass] 33.0 pg Normal 26.7-34.0 [facility] Comment on above: Performed By: #### C BC #### [facility] [address] [place] [address] Dr. Dinah Rodriges MCHC (RBC) [Mass/Vol] 32.9 g/dL Normal 29.9-35.2 [facility] Comment on above: Performed By: #### C BC #### [facility] [address] [place] [address] Dr. Dinah Rodriges MCV (RBC) [Entitic vol] 100.3 fL Critically high 81.0-99.0 [facility] Comment on above: Performed By: #### C BC #### [facility] [address] [place] [address] Dr. Dinah Rodriges MONO # 0.4 103/ul Normal 0.3-0.8 [facility] Comment on above: Performed By: #### C BC #### [facility] [address] [place] [address] Dr. Dinah Rodriges Monocytes/100 WBC (Bld) 7.6 % Normal 1.7-12.0 [facility] Comment on above: Performed By: #### C BC #### [facility] [address] [place] [address] Dr. Dinah Rodriges NEUT # 3.3 103/ul Normal 1.4-6.5 [facility] Comment on above: Performed By: #### C BC #### [facility] [address] [place] [address] Dr. Dinah Rodriges Neutrophils/100 WBC (Bld) 63.0 % Normal 43.0-75.0 [facility] [place] [facility] Comment on above: Performed By: #### C BC #### [facility] [address] [place], [place] [address] Dr. Dinah Rodriges Platelet mean volume (Bld) [Entitic vol] 10.0 fL Normal 9.5-13.5 [facility] Comment on above: Performed By: #### C BC #### [facility] [address] [address] [address] Dinah Rodriges PLT 165 103/ul Normal 150-450 [facility] Comment on above: Performed By: #### C BC #### [facility] [address] [address] [address] Dinah Rodriges RBC 3.49 106/ul Critically low 4.20-5.40 [facility] Comment on above: Performed By: #### C BC #### [facility] [address] [address] [address] Dinah Rodriges WBC 5.3 103/ul Normal 4.0-11.0 [facility] Comment on above: Performed By: #### C BC #### [facility] [address] [address] [address] Dinah Rodriges FREE THYROXINE INDEX T7on FTI 3.37 Normal 1.30-4.50 [facility] Comment on above: Performed By: #### T SH, BNP, T7, LIPID, CMP ####[facility] [address] [place] [id number]. Dinah Rodriges T3U 34.0 % Normal 30.0-39.0 [facility] Comment on above: Performed By: #### T SH, BNP, T7, LIPID, CMP ####[facility] [address] [place], [place] [address]Dr. Dinah Rodriges T4 [Mass/Vol] 9.90 ug/dL Normal 4.80-13.90 [facility] Comment on above: Performed By: #### T SH, BNP, T7, LIPID, CMP ####[facility] [address] [place] [id number]. Dinah Rodriges GLYCOHEMOGLOBIN A1Con 2021 ADA RECOMMENDATION SEE BELOW Normal [facility] Comment on above: Result Comment: ADA RECOMMENDED LIMIT 4.0 - 6.0 ADA THERAPEUTIC TARGET < 7.0 ACTION SUGGESTED > 7.0 Performed By: #### A 1C ####[facility] [address] [place] [address]Dr. Dinah Rodriges Glucose [Mass/Vol] 103 mg/dL Normal [facility] Comment on above: Performed By: #### A 1C ####[facility] [address] [place] [address]Dr. Dinah Rodriges HbA1c (Bld) [Mass fraction] 5.2 % Normal 4.5-6.2 [facility] Comment on above: Performed By: #### A 1C ####[facility] [address] [place], [place] [address]Dr. Dinah Rodriges IRONon 01-20-2022 Iron [Mass/Vol] 79.0 ug/dL Normal 50.0-170.0 [facility] Comment on above: Performed By: #### I KINZA ####[facility] [address] [place], [place] [address]Dr. Dinah Rodriges LIPID PROFILEon 01-20-2022 CHOL-HDL RATIO NORM SEE BELOW Normal [facility] Comment on above: Result Comment: 3.3 - 4.4 LOW RISK 4.4 - 7.1 AVERAGE RISK 7.1 - 11.0 MODERATE RISK >11.0 HIGH RISK Performed By: #### T SH, BNP, T7, LIPID, CMP ####[facility] [address] [place] [address]Dr. Dinah Rodriges Cholesterol [Mass/Vol] 153 mg/dL Normal <=200 [facility] Comment on above: Performed By: #### T SH, BNP, T7, LIPID, CMP ####[facility] [address] [place], [place] [address]Dr. Dinah Rodriges Cholesterol in HDL [Mass/Vol] 54 mg/dL Normal 40-60 [facility] Comment on above: Performed By: #### T SH, BNP, T7, LIPID, CMP ####[facility] [address]pi[address] [place] [address]Dr. Dinah Rodriges Cholesterol in LDL [Mass/Vol] 78.8 mg/dL Normal [facility] Comment on above: Performed By: #### T SH, BNP, T7, LIPID, CMP ####[facility] [address] [place] [address]Dr. Dinah Rodriges Cholesterol.total/Ch olesterol in HDL [Mass ratio] 2.8 {ratio} Normal [facility] Comment on above: Performed By: #### T SH, BNP, T7, LIPID, CMP ####[facility] [address] [place] [address]Dr. Dinah Rodriges HDL NORMAL > or = 60 mg/dl - LOW CARDIOVASCULAR RISK <40 mg/dl - HIGH CARDIOVASCULAR RISK Normal [facility] Comment on above: Performed By: #### T SH, BNP, T7, LIPID, CMP ####[facility] [address] [place], [place] [address]Dr. Dinah Rodriges LDL CALC NORMAL SEE BELOW Normal [facility] Comment on above: Result Comment: <100 mg/dl OPTIMAL 100 - 129 mg/dl NEAR OR ABOVE OPTIMAL 130 - 159 mg/dl BORDERLINE HIGH 160 - 189 mg/dl HIGH >190 mg/dl VERY HIGH Performed By: #### T SH, BNP, T7, LIPID, CMP ####[facility] [address] [place] [address]Dr. Dinah Rodriges Triglyceride [Mass/Vol] 101 mg/dL Normal <=150 [facility] Comment on above: Performed By: #### T SH, BNP, T7, LIPID, CMP ####[facility] [address] [place] [address]Dr. Dinah Rodriges VLDL CALC 20.2 mg/dL Normal [facility] Comment on above: Performed By: #### T SH, BNP, T7, LIPID, CMP ####[facility] [address] [place] [address]Dr. Dinah Rodriges MG MAMM SCREEN 3D TENZIN CADon 01-20-2022 MG MAMM SCREEN 3D TENZIN CAD Patient: NEREIDA AGOSTOSimran Exam Date: 01/20/2022 : 1940 Gender:F Ordering : DR JACINTO SERVIN . Admission #: [id number] Family : Order #: [id number] CLICK HERE TO VIEW EXAM RADIOLOGY REPORT [...] No Treatments None Family Cancers None LOCATION: [facility] BREAST COMPOSITION: Scattered areas fibroglandular [...] PALPABLE LUMP SHOULD BE BIOPSIED. Dictated by: eKlsi Monzon MD on 01/20/2022 at 11:16 Approved by: Kelsi Monzon MD on 01/20/2022 at 11:33 Normal [facility] PROF 14(COMP METB)on 022 Albumin [Mass/Vol] 3.3 g/dL Critically low 3.4-5.0 [facility] Comment on above: Performed By: #### T SH, BNP, T7, LIPID, CMP ####[facility] [address] [place] [address]Dr. Dinah Rodriges Albumin/Globulin [Mass ratio] 1.0 {ratio} Normal [facility] Comment on above: Performed By: #### T SH, BNP, T7, LIPID, CMP ####[facility] [address]cvorrh[address]za[address] [place] [id number]. Dinah Rodriges ALP [Catalytic activity/Vol] 69 U/L Normal 46-116 [facility] Comment on above: Performed By: #### T SH, BNP, T7, LIPID, CMP ####[facility] Ubkeks[address]ase[address] [place] [id number]. Dinah Rodriges ALT [Catalytic activity/Vol] 6 U/L Critically low 14-59 [facility] Comment on above: Performed By: #### T SH, BNP, T7, LIPID, CMP ####[facility] Erspbimbup[address] [place] [address]Dr. Dinah Rodriges Anion gap [Moles/Vol] 8.7 mmol/L Normal [facility] Comment on above: Performed By: #### T SH, BNP, T7, LIPID, CMP ####[facility] [address] [place], [place] [address]Dr. Dinah Rodriges AST [Catalytic activity/Vol] 12 U/L Critically low 15-37 [facility] Comment on above: Performed By: #### T SH, BNP, T7, LIPID, CMP ####[facility] Y[address] [place], [place] [address]Dr. Dinah Rodriges Bilirubin [Mass/Vol] 0.3 mg/dL Normal 0.2-1.0 [facility] Comment on above: Performed By: #### T SH, BNP, T7, LIPID, CMP ####[facility] [address] [place], [place] [address]Dr. Dinah Rodriges Calcium [Mass/Vol] 9.3 mg/dL Normal 8.5-10.1 [facility] Comment on above: Performed By: #### T SH, BNP, T7, LIPID, CMP ####[facility] [address] [place], [place] [address]Dr. Dinah Rodriges Chloride [Moles/Vol] 104 mmol/L Normal 98-107 [facility] Comment on above: Performed By: #### T SH, BNP, T7, LIPID, CMP ####[facility] [address] [place], [place] [address]Dr. Dinah Rodriges CO2 [Moles/Vol] 33.2 mmol/L Critically high 21.0-32.0 [facility] Comment on above: Performed By: #### T SH, BNP, T7, LIPID, CMP ####[facility] [address] [place], [place] [address]Dr. Dinah Rodriges Creatinine [Mass/Vol] 1.11 mg/dL Critically high 0.55-1.02 [facility] Comment on above: Performed By: #### T SH, BNP, T7, LIPID, CMP ####[facility] [address]iq[address] [place] [address]Dr. Lizlan Rodriges EGFR-AF NEW ZEALANDER 57 mL/min/1.73m2 Critically low >=60 [facility] Comment on above: Performed By: #### T SH, BNP, T7, LIPID, CMP ####[facility] I[address] [place], [place] [address]Dr. Yilan Rodriges EGFR-NON AF NEW ZEALANDER 47 mL/min/1.73m2 Critically low >=60 [facility] Comment on above: Performed By: #### T SH, BNP, T7, LIPID, CMP ####[facility] D[address]on[address] [place], [place] [address]Dr. Dinah Rodriges Globulin (S) [Mass/Vol] 3.4 g/dL Normal [facility] Comment on above: Performed By: #### T SH, BNP, T7, LIPID, CMP ####[facility] [address] [place], [place] [address]Dr. Lizlan Rodriges Glucose [Mass/Vol] 84 mg/dL Normal 74-106 [facility] Comment on above: Performed By: #### T SH, BNP, T7, LIPID, CMP ####[facility] [address] [place], [place] [address]Dr. iLzlan Rodriges Potassium [Moles/Vol] 4.9 mmol/L Normal 3.5-5.1 [facility] Comment on above: Performed By: #### T SH, BNP, T7, LIPID, CMP ####[facility] [address] [place], [place] [address]Dr. Lizlan Rodriges Protein [Mass/Vol] 6.7 g/dL Normal 6.4-8.2 [facility] Comment on above: Performed By: #### T SH, BNP, T7, LIPID, CMP ####[facility] [address] [place], [place] [address]Dr. Lizlan Rodriges Sodium [Moles/Vol] 141 mmol/L Normal 136-145 [facility] Comment on above: Performed By: #### T SH, BNP, T7, LIPID, CMP ####[facility] [address] [place] [id number]. Dinah Rodriges Urea nitrogen [Mass/Vol] 18.0 mg/dL Normal 7.0-18.0 [facility] Comment on above: Performed By: #### T SH, BNP, T7, LIPID, CMP ####[facility] [address] [place] [id number]. Dinah Rodriges Urea nitrogen/Creatinine [Mass ratio] 16.2 mg/mg Normal [facility] Comment on above: Performed By: #### T SH, BNP, T7, LIPID, CMP ####[facility] [address] [place] [address]Dr. Dinah Rodriges TSHon 01-20-2022 TSH 1.061 uIU/mL Normal 0.358-3.740 [facility] Comment on above: Performed By: #### T SH, BNP, T7, LIPID, CMP ####[facility] [address] [place] [address]Dr. Dinah Rodriges TSH RANGE SEE BELOW Normal [facility] Comment on above: Result Comment: <0.3 4 UIU/ml HYPERTHYROID 0.34-5.60 UIU/ml EUTHYROID >5.60 UIU/ml HYPOTHYROID Performed By: #### T SH, BNP, T7, LIPID, CMP ####[facility] [address] [place] [address]Dr. Dinah Rodriges XR DEXA BONE DENSITYon 01-20 [...] DUDLEY RYDER Date: 2022-01-20 11:30 Normal [facility] Cardiovascular Lab Reporton 12-23-2018 Cardiovascular Lab Report [facility] MR #: [id number] Department of Physician: Martha Seymour M.D. Division of Service Date: 12/23/2018 Cardiology Birthdate: 1940 Adult Cardiovascular Room #: [place] [address] Cardiovascular Laboratory Report PROCEDURE: Transesophageal echocardiogram and cardioversion. INDICATION: Atrial fibrillation. FELLOW: Neto Doty MD PROCEDURE IN DETAIL: An informed consent was obtained from the patient after explaining the indication, risks and benefits, and alternatives. The patient understood and agreed and signed the consent form. The patient was brought to the labor and employment paralegal and transesophageal echocardiogram was performed under conscious [...] will follow up with me in the [facility] in 2-4 weeks Electronically Signed by: Goldie Vaughan M.D. 01/05/2019 08:36 A Goldie Vaughan M.D. I was present for the entire procedure. Date Dict: 12/23/2018/03:28 P/Neto Doty MD Date Trans: 12/23/2018 04:19 P/beth [id number] cc: Jacinto Servin M.D. [address] Alek Barrios [facility] [address] Normal [facility] Cardiovascular Lab Reporton 12-16-2018 Cardiovascular Lab Report [facility] MR #: [id number] Department of Physician: Martha Ken M.D. Division of Service Date: 12/15/2018 Cardiology Birthdate: 1940 Adult Cardiovascular Room #: 3CD [id number] [place] [address] Cardiovascular Laboratory Report CLINICAL PRESENTATION: The patient is a 78-year-old female with past medical history significant for hypertension. She was admitted to [facility] with worsening shortness of breath. She was diagnosed with acute congestive heart failure and atrial fibrillation with a rapid ventricular rate. She was evaluated by my colleague, Dr. Lee, [place] [facility]. EKG showed ST elevations in the anterolateral leads and she was transferred urgently to the [facility] due to possible acute myocardial infarction. FINAL [...] ultrasound guidance and micropuncture access technique, a 6-Turkmen sheath placed in the right common femoral [...] Cano M.D. Date Trans: 12/16/2018 06:03 A/beth [id number] cc: Jacinto Servin M.D. [address] [facility] [address] Peter Lee M.D. [facility] [place] [address] Normal [facility] BASIC METABOLIC PANELon 12-05 Calcium [Mass/Vol] 9.3 mg/dL Normal 8.6-10.3 [facility] Comment on above: Order Comment: No: D o not add to previous draw Performed By: #### 4 6413, 56765, 39461, 77140, 20524 #### [facility] [address] [place] [address], [place] Chloride [Moles/Vol] 102 mmol/L Normal 98-107 [facility] Comment on above: Order Comment: No: D o not add to previous draw Performed By: #### 4 6413, 91472, 05240, 53202, 17557 #### [facility] [address] [place] [address], [place] CO2 [Moles/Vol] 27 mmol/L Normal 21-31 [facility] Comment on above: Order Comment: No: D o not add to previous draw Performed By: #### 4 6413, 81354, 79110, 97949, 18014 #### [facility] [address] [place] [address], [facility] Creatinine [Mass/Vol] 0.91 mg/dL Normal 0.60-1.20 [facility] Comment on above: Order Comment: No: D o not add to previous draw Performed By: #### 4 6413, 88327, 58038, 14290, 40029 #### [facility] [address] [place] [address], [facility] GFR/1.73 sq M predicted among blacks MDRD (S/P/Bld) [Vol rate/Area] mL/min/{1.73_m2} Normal >60 [facility] Comment on above: Order Comment: No: D o not add to previous draw Result Comment: Calc ulation may not be valid for patients over 70 years Performed By: #### 4 6413, 53151, 61211, 04534, 64697 #### [facility] [address] [place] [address], [facility] GFR/1.73 sq M predicted among non-blacks MDRD (S/P/Bld) [Vol rate/Area] mL/min/{1.73_m2} Normal >60 [facility] Comment on above: Order Comment: No: D o not add to previous draw Result Comment: Calc ulation may not be valid for patients over 70 years Performed By: #### 4 6413, 38040, 22364, 60251, 34527 #### [facility] [address] [place] [address], [place] Glucose [Mass/Vol] 130 mg/dL High 70-100 [facility] Comment on above: Order Comment: No: D o not add to previous draw Performed By: #### 4 6413, 50750, 44076, 12122, 77337 #### [facility] [address] [place] [address], [facility] Potassium [Moles/Vol] 3.5 mmol/L Normal 3.5-5.1 [facility] Comment on above: Order Comment: No: D o not add to previous draw Performed By: #### 4 6413, 74810, 40239, 34773, 26199 #### [facility] [address] [place] [address], [facility] Sodium [Moles/Vol] 140 mmol/L Normal 136-145 [facility] Comment on above: Order Comment: No: D o not add to previous draw Performed By: #### 4 6413, 02017, 92955, 08481, 74648 #### [facility] [address] [place] [address], [facility] Urea nitrogen [Mass/Vol] 19 mg/dL Normal 7-25 [facility] Comment on above: Order Comment: No: D o not add to previous draw Performed By: #### 4 6413, 44484, 44045, 19089, 36818 #### [facility] [address] [place] [address], [facility] BNP (B-TYPE NATRIURETIC PEPT CORI)on 12-15-2018 Natriuretic peptide B (Bld) [Mass/Vol] 369 pg/mL High 0-100 [facility] Comment on above: Order Comment: No: D o not add to previous draw Result Comment: Give n the appropriate clinical setting a BNP result of >100 pg/mL indicates congestive heart failure. Performed By: #### 8 5123, 77107 #### [facility] [address] [place] [address], [facility] CBC COMPLETE BLOOD COUNTon 0 12-15-2018 Erythrocyte distribution width (RBC) [Ratio] 12.9 % Normal 11.5-15.0 [facility] Comment on above: Order Comment: No: D o not add to previous draw Performed By: #### 5 0608 #### [facility] [address] Hematocrit (Bld) [Volume fraction] 39.0 % Normal 36.0-45.0 [facility] Comment on above: Order Comment: No: D o not add to previous draw Performed By: #### 5 0608 #### [facility] [address] [place] [address], [facility] Hemoglobin (Bld) [Mass/Vol] 12.6 g/dL Normal 12.0-15.0 [facility] Comment on above: Order Comment: No: D o not add to previous draw Performed By: #### 5 0608 #### [facility] [address] [facility] [place] [address], [facility] MCH (RBC) [Entitic mass] 31.6 pg Normal 27.0-33.0 [facility] Comment on above: Order Comment: No: D o not add to previous draw Performed By: #### 5 0608 #### [facility] [address] [facility] [place] [address], [facility] MCHC (RBC) [Mass/Vol] 32.3 g/dL Normal 32.0-35.0 [facility] Comment on above: Order Comment: No: D o not add to previous draw Performed By: #### 5 0608 #### [facility] [address] [facility] [place] [address], [facility] MCV (RBC) [Entitic vol] 97.7 fL Normal 82.0-98.0 [facility] Comment on above: Order Comment: No: D o not add to previous draw Performed By: #### 5 0608 #### [facility] [address] [facility] [place] [address], [facility] Nucleated RBC/100 WBC (Bld) [Ratio] 0 % Normal 0-0 [facility] Comment on above: Order Comment: No: D o not add to previous draw Performed By: #### 5 0608 #### [facility] [address] [place] [address], [facility] PLAT CNT 252 10*3/uL Normal 150-400 [facility] Comment on above: Order Comment: No: D o not add to previous draw Performed By: #### 5 0608 #### [facility] [address] [place] [address], [facility] RBC (Bld) [#/Vol] 3.99 10*6/uL Normal 3.80-5.00 [facility] Comment on above: Order Comment: No: D o not add to previous draw Performed By: #### 5 0608 #### [facility] [address] [place] [address], [facility] WBC (Bld) [#/Vol] 8.04 10*3/uL Normal 4.00-10.60 [facility] Comment on above: Order Comment: No: D o not add to previous draw Performed By: #### 5 0608 #### [facility] [address] HEMOGLOBIN A1Con 12-15-2018 HbA1c (Bld) [Mass fraction] 108 mg/dL Normal 70-126 [facility] Comment on above: Order Comment: No: D o not add to previous draw Performed By: #### 8 5123, 89456 #### [facility] [address] [place] [address], [facility] HbA1c (Bld) [Mass fraction] 5.4 % Normal 4.0-6.0 [facility] Comment on above: Order Comment: No: D o not add to previous draw Performed By: #### 8 5123, 31120 #### [facility] [address] [place] [address], [facility] LIPID PROFILEon 12-15-2018 Cholesterol [Mass/Vol] 138 mg/dL Normal 120-200 [facility] Comment on above: Order Comment: No: D o not add to previous draw Result Comment: CHOL ESTEROL REFERENCE RANGE: 20 YEARS AND OLDER CARDIOVASCULAR RISK Less than 200 mg/dl Low Risk 200 to 239 mg/dl Borderline Risk 240 mg/dl and greater High Risk Performed By: #### 4 6413, 64464, 63360, 08779, 26671 #### [facility] [address] [place] [address], [facility] Cholesterol in HDL [Mass/Vol] 36 mg/dL Normal 23-92 [facility] Comment on above: Order Comment: No: D o not add to previous draw Result Comment: Slig ht variation in normal range could be due to gender and/or age. HDL CHOLESTEROL REFERENCE RANGE: 20 years and older Cardiovascular Risk > or =60 mg/dL Desirable 40 TO 59 mg/dL Low Risk <40 mg/dL High Risk Performed By: #### 4 6413, 45762, 73937, 61846, 55694 #### [facility] [address] [place] [address], [facility] Cholesterol in LDL [Mass/Vol] 81 mg/dL Normal 0-130 [facility] Comment on above: Order Comment: No: D o not add to previous draw Result Comment: LDL IS A CALCULATION LDL IS ONLY VALID IF THE TRIG IS LESS THAN 400. Performed By: #### 4 6413, 06851, 96119, 82676, 42744 #### [facility] [address] [place] [address], [facility] Cholesterol.total/Ch olesterol in HDL [Mass ratio] 3.8 {ratio} Normal .0-4.5 [facility] Comment on above: Order Comment: No: D o not add to previous draw Performed By: #### 4 6413, 02376, 65741, 98669, 89442 #### [facility] [address] [place] [address], [place] NON-HDL CHOLESTEROL 102 mg/dL Normal [facility] Comment on above: Order Comment: No: D o not add to previous draw Performed By: #### 4 6413, 29992, 04365, 08702, 51281 #### [facility] [address] Triglyceride [Mass/Vol] 106 mg/dL Normal 40-149 [facility] Comment on above: Order Comment: No: D o not add to previous draw Result Comment: TRIG LYCERIDE REFERENCE RANGE: 20 YEARS AND OLDER CARDIOVASCULAR RISK LESS THAN 150 mg/dl LOW RISK 150 TO 199 mg/dl BORDERLINE RISK 200 mg/dl AND GREATER HIGH RISK Performed By: #### 4 6413, 40856, 52596, 26330, 19656 #### [facility] [address] [facility]. [address] VLDL CHOL 21 mg/dL Normal 0-40 [facility] Comment on above: Order Comment: No: D o not add to previous draw Performed By: #### 4 6413, 85584, 63298, 03685, 54951 #### [facility] [address] [facility] [place], [place] [address] [place] [address] MAGNESIUM BLOODon 12-15-2018 Magnesium [Mass/Vol] 1.9 mg/dL Normal 1.9-2.7 [facility] Comment on above: Order Comment: No: D o not add to previous draw Performed By: #### 4 6413, 21611, 11852, 55522, 30509 #### [facility] [address] [facility] [place] [address], [facility] PHOSPHORUS BLOODon 9 Phosphate [Mass/Vol] 4.5 mg/dL Normal 2.5-5.0 [facility] Comment on above: Order Comment: haider figueroa request Performed By: #### 4 6413, 35181, 66858, 51111, 29713 #### [facility] [address] [facility] [place] [address], [facility] PORTABLE CHEST 1 VIEWon 12-05 PORTABLE CHEST 1 VIEW [facility] Department of Radiology [address] [place] [address] Patient Name: NEREIDA AGOSTO : 1940 Sex: F Age: Race: White Pt. Location: [address] [place] [address] Patient Status: I Ordered Date: 12/15/2018 2:10:00 [...] failure Electronically signed by:Bharti Bazan. Transcribed by: [id number], User Resident: Electronically Signed by: BHARTI BAZAN @ 12/15/2018 03:50 PM Normal [facility] Comment on above: Order Comment: R/O C HF TSH3on 12-15-2018 TSH 3RD GENERATION 0.86 uIU/mL Normal 0.34-5.60 [facility] Comment on above: Performed By: #### 4 6413, 33299, 06932, 17509, 16216 #### [facility] [address] [place] [address], [facility] Vital Signs Date Time Vital Sign Value Performing Clinician Clemencia larry 03-15-2024 13:44-0400 Blood Pressure Location Rashi NILL [facility] [place] 03-15-2024 13:44-0400 Diastolic blood pressure 80 mm[Hg] Rashi NILL [facility] [place]e 03-15-2024 13:44-0400 Heart rate 76 /min Rashi NILL [facility] [place] 03-15-2024 13:44-0400 Respiratory rate 16 /min Rashi NILL [facility] [place] 03-15-2024 13:44-0400 Systolic blood pressure 118 mm[Hg] Rashi NILL [facility] [place] 02-02-2023 14:45-0400 Blood Pressure Location Rashi NILL [facility] [place] 02-02-2023 14:45-0400 Diastolic blood pressure 76 mm[Hg] Rashi NILL [facility] 02-02-2023 14:45-0400 Heart rate 74 /min Rashi NILL [facility] [place] 02-02-2023 14:45-0400 Respiratory rate 16 /min Rashi NILL [facility] 02-02-2023 14:45-0400 Systolic blood pressure 126 mm[Hg] Rashi NILL General [facility] Encounters Encounter Date Encounter Type Care Provider Facility Start: 04-13-2024 End: 04-13-2024 ambulatory ROD AGUAYO Not Available Start: 03-29-2024 End: 03-29-2024 ambulatory ROD AGUAYO Not Available Start: 03-15-2024 End: 03-15-2024 ambulatory Rashi JOHN Facility: [facility] Start: 03-15-2024 End: 03-15-2024 Patient encounter procedure Rashi R NILL JolynnJames [facility] Start: 02-07-2024 End: 02-07-2024 [facility] Start: 10-28-2023 End: 10-28-2023 ambulatory KHANG [facility] Start: 08-05-2023 End: 08-05-2023 ambulatory [facility] Start: 03-05-2023 End: 03-05-2023 Patient encounter procedure Rashi R JAXL [facility] [place] Start: 02-19-2023 End: 02-19-2023 ambulatory [facility] Start: 02-02-2023 End: 02-02-2023 Patient encounter procedure Rashi CAMARAL [facility] Start: 01-21-[address] JACINTO SERVIN . Facili ty:[facility] Start: 01-19-2023 End: 01-19-[address] JACINTO SERVIN . Facility:[facility] Start: 01-18-2023 End: 01-19-[address] JACINTO SERVIN . Facility:[facility] Start: 01-20-2022 End: 01-21-[address] JACINTO SERVIN . Facility:[facility] Start: 12-23-2018 End: 12-24-2018 Patient encounter procedure AB Harvey VAUGHAN Facility:[facility] Start: 12-15-2018 End: 12-16-2018 Evaluation and management of inpatient PETER LEE Facility:[facility] Procedures Date Procedure Procedure Detail Performing [...] Immunization Date Immunization Notes Care Provider Fa [facility] 07-21-2022 influenza virus vaccine, unspecified formulation Rashi JOHN [facility] 08-28-2021 SARS-CoV-2 (COVID-19 ) mRNA-1273 vaccine Rashi JOHN [facility] 11-14-2020 SARS-CoV-2 (COVID-19 ) mRNA-1273 vaccine Rashi JOHN [facility] 10-18-2020 SARS-CoV-2 (COVID-19 ) mRNA-1273 vaccine Rashi JOHN [facility] [place] Payers Date Payer Category Payer [employer]) [id number] 2018 Medicare [id number] 1959 [employer] [id number] 1957 Medicare [id number] 1940 Unknown [id number] 1940 Unknown [id number] 1940 Unknown [id number] 1942 Unknown [id number] 1942 Unknown [id number] 1942 Unknown [id number] 1942 Unknown [id number] 1942 Unknown [id number] 1942 Unknown [id number] 1942 Unknown [id number] Social History Date Type Detail Facility Start: 02-02-2023 End: 03-15-2024 Tobacco smoking status Ex-smoker (finding) [facility] Tobacco smoking status Never [facility] Sex Assigned At Female [facility] Functional Status Date Assessment Result Facility 03-15-2024 Functional Status N/A [facility] [place] 02-02-2023 Functional Status N/A [facility] Progress note 02-07-2024 Note Date & Type Note Facility 02-07-2024 Note [facility] Note Chief Complaint: Patient [...] is seen in (more content not included)... [facility] Progress note 10-28-2023 Note Date & Type Note Facility 10-28-2023 Note [facility] Note SUBJECTIVE No chief complaint on [...] 4.9, GFR 47 (more content not included)... [facility] Progress note 10-28-2023 Note Date & Type [...] All other systems reviewed and are negative. [facility] Progress note 08-05-2023 Note Date [...] All other systems reviewed and are negative. [facility] Progress note 08-05-2023 Note Date [...] aorta. - Succes (more content not included)... [facility] Progress note 06-16-2023 Note Date & Type [...] 08/21/2023). Flaquito Rojas (more content not included)... [facility] Evaluation + Plan note Note Date & Type Note Facility Evaluation + Plan note No data available for this section [facility] Discharge instructions Note Date & Type Note Facility Hospital Discharge instructions No data available for this section [facility] Progress note Note Date & Type Note Facility Progress note No data available for this section [facility] Summary Purpose Family History No Family History Records FoundNo Family History Records FoundNo Family History Records FoundNo Family History Records Found No data available for this section No Family History Records Found Advance Directives No Advanced Directives Records FoundNo Advanced Directives Records FoundNo Advanced Directives Records FoundNo Advanced Directives Records FoundNo Advanced Directives Records Found Hospital Course Note MR#: [id number] [facility] Pt. Name: Nereida Agosto Admitted: 12/15/2018 [...] was sent to the ER. Apparently in [facility], the patient was found to have decompensated heart failure with new onset of atrial fibrillation. She was in rapid ventricular response. The patient was admitt (more content not included)... Additional Source Comments INFORMATION SOURCE (unrecogn ized section and content) DATE CREATED AUTHOR 04/29/2019 [facility] DATE CREATED AUTHOR AUTHOR'S ORGANIZ ATION 01/19/2023 [facility] DATE CREATED AUTHOR AUTHOR'S ORGANIZ ATION 02/07/2024 [facility] DATE CREATED AUTHOR AUTHOR'S ORGANIZ ATION 03/21/2024 [facility] DATE CREATED AUTHOR AUTHOR'S ORGANIZ ATION 04/15/2024 [facility] Patient Care team informatio n (unrecognized section and content) Personnel Name: Jacinto Servin MD Address: Address: [address] [place] [address] Personnel Name: Jacinto Servin MD Address: Address: [address] [place] [address] Personnel Name: Jacinto Servin MD Address: Address: [address] [place] [address] FOR RECORDS PERTAINING TO PATIENTS WHO ARE [...] BE BASED ON THE PRIMARY CLINICAL RECORDS. [facility]. provides no warranty or guarantee of the accuracy or completeness of information in this document.
[2024-04-24 10:21] LABS: Estimated Average Glucose 100 mg/dL; Glycohemoglobin A1C 5.1 % (4.5-6.2)
[2024-04-24 10:58] LABS: Alanine Aminotransferase 15 U/L (14-59); Albumin Globulin Ratio 1.1; Albumin Level 3.4 g/dL (3.4-5.0); Alkaline Phosphatase 65 U/L (46-116); Anion Gap 9.7; Aspartate Amino Transferase 20 U/L (15-37); BUN Creatinine Ratio 14.7; Bilirubin Total 0.6 mg/dL (0.2-1.0); Calcium 9.8 mg/dL (8.5-10.1); Carbon Dioxide 32.8 mmol/L (21.0-32.0); Chloride 104 mmol/L (98-107); Chol HDL Ratio 3.3; Cholesterol 151 mg/dL (<=200); Estimated GFR (African America 54 (>=60); Estimated GFR (Non-African Ame 45 (>=60); Free T3 2.41 pg/mL (2.18-3.98); Globulin 3.2 g/dL; Glucose 90 mg/dL (74-106); HDL Cholesterol 46 mg/dL (40-60); LDL Cholesterol Calculated 86.6 mg/dL; Potassium 4.5 mmol/L (3.5-5.1); Sodium 142 mmol/L (136-145); Thyroid Stimulating Hormone 1.523 uIU/mL (0.358-3.740); Total Protein 6.6 g/dL (6.4-8.2); Triglycerides 92 mg/dL (<=150); VLDL CHOLESTEROL 18.4 mg/dL
== END 2024-04-24 09:12 | disposition home or self-care (01) ==
LOC: LAB 09:13
PROVIDERS: PCP Family Medicine; Visit Provider Family Medicine
DX: E03.9 Hypothyroidism, unspecified (principal); I50.9 Heart failure, unspecified; M81.0 Age-related osteoporosis without current pathological fracture; E78.5 Hyperlipidemia, unspecified; R73.09 Other abnormal glucose; D64.9 Anemia, unspecified; I50.30 Unspecified diastolic (congestive) heart failure; I11.0 Hypertensive heart disease with heart failure
CPT/HCPCS: 36415; 80053; 80061; 82306; 83036; 83540; 83880; 84436; 84443; 84481; 85025

== ENCOUNTER 2024-04-26 06:35 | Day surgery (SDC) | payer MEDICARE, OTHER, SELFPAY ==
--- NOTE | 2024-04-26 | OP_ITS ---
05/17/24 ADDENDUM:? OPERATION DATE: 04/26/24 At the end of the report, where it says that the polyp was removed in a piecemeal fashion, should say with cold snare polypectomy.? Both polyps were removed with cold snare polypectomy, not cold biopsy forceps.? The remainder of the report is the same. TATYANA/rosanne OPERATION DATE: 04/26/2024 PREOPERATIVE DIAGNOSIS: Personal history of tubulovillous adenoma with high grade dysplasia. POSTOPERATIVE DIAGNOSIS: Recurrent cecal polyps x2 as well as sigmoid diverticulosis. PROCEDURE: Colonoscopy to cecum with cold snare polypectomy x2. SURGEON: Rashi Majano M.D. ANESTHESIA: Monitored anesthesia care. ESTIMATED BLOOD LOSS: Less than 1 mL. INDICATIONS AND CONSENT: Patient is an 84-year-old female with a personal history of tubulovillous adenoma within the cecum one year ago, that had a small focus of high grade dysplasia. She now presents for follow up colonoscopy. Indications, risks, benefits, alternatives of proceeding with colonoscopy were explained extensively to the patient, including the risks of bleeding, colon perforation or anesthetic complications. All of her questions were answered. Informed consent was obtained. PROCEDURE: Patient brought to the operating room, placed in the left lateral decubitus position. Monitored anesthesia care was provided. Rectal exam was performed which revealed no masses or blood. The scope was inserted into the anal canal. Under direct visualization was advanced. It was advanced to the cecum where cecal markings were clearly identified. There was noted to be a good prep with some liquid stool throughout the colon that was partially irrigated clear. Within the cecum, just distal to the ileocecal valve, there was noted to be a 1 cm irregular sessile polyp, and adjacent to this, a little more distal, was an irregular 7 mm lobulated polyp that was also removed with cold biopsy forceps in a piecemeal fashion with good hemostasis. These fragments were sucked up, but the larger polyp required a Schuster net for removal. Upon withdrawal of the scope, mucosal surfaces were carefully examined. There were no mass lesions or polyps. No inflammatory changes or ulcerations. There was moderate descending and sigmoid diverticulosis without inflammatory changes or scarring. The scope was retroflexed in the anal canal. There was no significant hemorrhoidal disease. Scope was then withdrawn. Patient tolerated procedure well, was sent to recovery room in good condition.f/u colonoscopy likely in 6 months to 1 year, but will depend on pathology results. CC: Kole Servin M.D. MTDKenia
--- OUTSIDE RECORDS SUMMARY | 2024-04-26 06:38 | XMS_ITS | CCD ---
Author Organization [facility] Care Team Providers Care Hotshot Superintendent Name Role Phone PETER LEE Referring Unavailable JACINTO SERVIN Primary Care Unavailable CHAPITO SHIPLEY Attending Unavailable CHAPITO SHIPLEY Admitting Unavailable MS Procedure Practitioner Unavailab JJ Rendon Surgeon Unavailable [...] Unavailable HOY ., DR CASEY Attending Unavailable CULVER, DR KELSI Aguirre Consulting Unavailable ZIEBER, DR [...] Drug allergy Unknown (qualifier value) General Surgery [place] (1 source) Sulfonamides (Antibiotic); Translations: [SULFA (SULFONAMIDE ANTIBIOTICS)] Propensity to adverse reactions to drug (disorder) 2 [facility] (1 source) ALPRAZolam; Translations: [Xanax] Drug Allergy [facility] Repository Medications Current Medications Medication Drug [...] your care. Alina Henry [facility] General Surgery Office/Clini c Noteon [...] Family Hist (more content not included)... Normal [facility] Comment on above: Result Comment: Elec tronically Signed By: ALVARO AHMADI, Rashi Rayo.diego\Date and Time Signed: 03/15/24 14:08 EDT Office Visiton 02-07-2024 Follow-up visit [id number] Nereida Agosto 1940 F Date Provider Department Center 02/07/2024 271-GOLDIE VAUGHAN KIM Cook Family History Problem Relation Age of Onset No Known Problems Mother No Known Problems Father Family Status - Relation Status Age at Mother Father Level of Service:54516 MS OFFICE/OUTPATIENT ESTABLISHED LOW MDM 20 MIN Normal [facility] Office Visiton 10-28-2023 Follow-up visit [id number] Nereida Agosto 1940 F Date Provider Department Center 10/28/2023 Yu-KHANG LORENZO Family History Problem Relation Age of Onset No Known Problems Mother No Known Problems Father Family Status - Relation Status Age at Mother Father Level of Service:49736 MS OFFICE/OUTPATIENT ESTABLISHED MOD MDM 30 MIN Reason for Visit and Comments: Congestive Heart Failure [127] Dizziness [113197] Normal [facility] Office Visiton 08-05-2023 Follow-up visit [id number] StanislawrubioharveyNereida P 1940 Date Provider Department Center 08/05/202343490-JKKNOTVPDFLAQUITO MAN Anneliese Hos Family History Problem Relation Age of Onset No Known Problems Mother No Known Problems Father Family Status - Relation Status Age at Mother Father Level of Service:65093 MS OFFICE/OUTPATIENT ESTABLISHED MOD MDM 30-39 MIN Normal [facility] Office Visiton 02-19-2023 Follow-up visit [id number] StanislawrubioharveyNereida P 1940 F Date Provider Department Center 02/19/2023 [id number] ANAYA Hos Family History Problem Relation Age of Onset No Known Problems Mother No Known Problems Father Family Status - Relation Status Age at Mother Father Level of Service:83844 MS OFFICE/OUTPATIENT ESTABLISHED MOD MDM 30-39 MIN Reason for Visit and Comments: Follow-up [456714] - Pt is here for sx clearance scheduled for echo 02/17 [facility] OCC BLD IMMUNO SCREENon 01-04 OCCULT BLOOD Positive Abnormal NEGATIVE [facility] Comment on above: Performed By: #### O BSCRN #### [facility] [address] [place] [address] Dr. Dinah Rodriges CBC AUTO DIFFon 01-18-2023 BASO # 0.0 103/ul Normal 0.0-0.1 [facility] Comment on above: Performed By: #### C BC #### [facility] [address] [place] [address] Dr. Dinah Rodriges Basophils/100 WBC (Bld) 0.6 % Normal 0.2-2.0 [facility] Comment on above: Performed By: #### C BC #### [facility] [address] [place] [address] Dr. Dinah Rodriges EO # 0.1 103/ul Normal 0.0-0.7 [facility] Comment on above: Performed By: #### C BC #### [facility] [address] [place] [address] Dr. Dinah Rodriges Eosinophils/100 WBC (Bld) 1.8 % Normal 0.9-7.0 [facility] Comment on above: Performed By: #### C BC #### [facility] [address] [place] [address] Dr. Dinah Rodriges Erythrocyte distribution width (RBC) [Ratio] 12.7 % Normal 11.0-15.0 [facility] Comment on above: Performed By: #### C BC #### [facility] [address] [place] [address] Dr. Dinah Rodriges Hematocrit (Bld) [Volume fraction] 39.7 % Normal 36.0-48.0 [facility] Comment on above: Performed By: #### C BC #### [facility] [address] [place] [address] Dr. Dinah Rodriges Hemoglobin (Bld) [Mass/Vol] 12.6 g/dL Normal 12.0-16.0 [facility] Comment on above: Performed By: #### C BC #### [facility] [address] [place] [address] Dr. Dinah Rodriges IG # 0.01 10e3/ul Normal 0.00-0.03 [facility] Comment on above: Performed By: #### C BC #### [facility] [address] [place] [address] Dr. Dinah Rodriges IG % 0.2 % Normal 0.0-0.5 [facility] Comment on above: Performed By: #### C BC #### [facility] [address] [place] [address] Dr. Dinah Rodriges LYMPH # 1.5 103/ul Normal 1.2-3.8 [facility] Comment on above: Performed By: #### C BC #### [facility] [address] [place] [address] Dr. Dinah Rodriges Lymphocytes/100 WBC (Bld) 28.7 % Normal 20.5-60.0 [facility] Comment on above: Performed By: #### C BC #### [facility] [address] [place] [address] Dr. Dinah Rodriges MANUAL DIFF REQ NO Normal [facility] Comment on above: Performed By: #### C BC #### [facility] [address] [place] [address] Dr. Dinah Rodriges MCH (RBC) [Entitic mass] 30.7 pg Normal 26.7-34.0 [facility] Comment on above: Performed By: #### C BC #### [facility] [address] [place] [address] Dr. Dinah Rodriges MCHC (RBC) [Mass/Vol] 31.7 g/dL Normal 29.9-35.2 [facility] Comment on above: Performed By: #### C BC #### [facility] [address] [place] [address] Dr. Dinah Rodriges MCV (RBC) [Entitic vol] 96.8 fL Normal 81.0-99.0 [facility] Comment on above: Performed By: #### C BC #### [facility] [address] [place] [address] Dr. Dinah Rodriges MONO # 0.4 103/ul Normal 0.3-0.8 [facility] Comment on above: Performed By: #### C BC #### [facility] [address] [place] [address] Dr. Dinah Rodriges Monocytes/100 WBC (Bld) 7.3 % Normal 1.7-12.0 [facility] Comment on above: Performed By: #### C BC #### [facility] [address] [place] [address] Dr. Dinah Rodriges NEUT # 3.1 103/ul Normal 1.4-6.5 [facility] Comment on above: Performed By: #### C BC #### [facility] [address] [place] [address] Dr. Dinah Rodriges Neutrophils/100 WBC (Bld) 61.4 % Normal 43.0-75.0 [facility] Comment on above: Performed By: #### C BC #### [facility] [address] [place] [address] Dr. Dinah Rodriges Platelet mean volume (Bld) [Entitic vol] 9.7 fL Normal 9.5-13.5 [facility] Comment on above: Performed By: #### C BC #### [facility] [address] [address] [address] Dinah Rodriges PLT 163 103/ul Normal 150-450 [facility] Comment on above: Performed By: #### C BC #### [facility] [address] [address] [address] Dinah Rodriges RBC 4.10 106/ul Critically low 4.20-5.40 [facility] Comment on above: Performed By: #### C BC #### [facility] [address] [address] [address] Dinah Rodriges WBC 5.1 103/ul Normal 4.0-11.0 [facility] Comment on above: Performed By: #### C BC #### [facility] [address] [address] [address] Dinah Rodriges FREE T3on 01-18-2023 FREE T3 2.11 pg/mlL Critically low 2.18-3.98 [facility] Comment on above: Performed By: #### C MP, TSH, T4, LIPID, FT3 #### [facility] [address] [address] [address] Dinah Rodriges GLYCOHEMOGLOBIN A1Con 2022 ADA RECOMMENDATION SEE BELOW Normal [facility] Comment on above: Result Comment: ADA RECOMMENDED LIMIT 4.0 - 6.0 ADA THERAPEUTIC TARGET < 7.0 ACTION SUGGESTED > 7.0 Performed By: #### A 1C ####[facility] [address] [address]Dr. Dinah Rodriges Glucose [Mass/Vol] 105 mg/dL Normal [facility] Comment on above: Performed By: #### A 1C ####[facility] [address] [id number]. Dinah Rodriges HbA1c (Bld) [Mass fraction] 5.3 % Normal 4.5-6.2 [facility] Comment on above: Performed By: #### A 1C ####[facility] [address] [place], [place] [address]WvDr. Dinah Rodriges LIPID PROFILEon 01-18-2023 CHOL-HDL RATIO NORM SEE BELOW Normal [facility] Comment on above: Result Comment: 3.3 - 4.4 LOW RISK 4.4 - 7.1 AVERAGE RISK 7.1 - 11.0 MODERATE RISK >11.0 HIGH RISK Performed By: #### C MP, TSH, T4, LIPID, FT3 #### [facility] [address] [address] [address] Dinah Rodriges Cholesterol [Mass/Vol] 168 mg/dL Normal <=200 [facility] Comment on above: Performed By: #### C MP, TSH, T4, LIPID, FT3 #### [facility] [address] [address] [address] Dinah Rodriges Cholesterol in HDL [Mass/Vol] 61 mg/dL Critically high 40-60 [facility] Comment on above: Performed By: #### C MP, TSH, T4, LIPID, FT3 #### [facility] [address] [address] [address] Dinah Rodriges Cholesterol in LDL [Mass/Vol] 94.0 mg/dL Normal [facility] Comment on above: Performed By: #### C MP, TSH, T4, LIPID, FT3 #### [facility] [address] [address] [address] Dinah Rodriges Cholesterol.total/Ch olesterol in HDL [Mass ratio] 2.8 {ratio} Normal [facility] Comment on above: Performed By: #### C MP, TSH, T4, LIPID, FT3 #### [facility] [address] [address] [address] Dinah Rodriges HDL NORMAL > or = 60 mg/dl - LOW CARDIOVASCULAR RISK <40 mg/dl - HIGH CARDIOVASCULAR RISK Normal [facility] Comment on above: Performed By: #### C MP, TSH, T4, LIPID, FT3 #### [facility] [address] [address] [address] Dinah Rodriges LDL CALC NORMAL SEE BELOW Normal [facility] Comment on above: Result Comment: <100 mg/dl OPTIMAL 100 - 129 mg/dl NEAR OR ABOVE OPTIMAL 130 - 159 mg/dl BORDERLINE HIGH 160 - 189 mg/dl HIGH >190 mg/dl VERY HIGH Performed By: #### C MP, TSH, T4, LIPID, FT3 #### [facility] [address] [place] [address] Dr. Dinah Rodriegs Triglyceride [Mass/Vol] 65 mg/dL Normal <=150 [facility] Comment on above: Performed By: #### C MP, TSH, T4, LIPID, FT3 #### [facility] [address] [address] [address] Dinah Rodriges VLDL CALC 13.0 mg/dL Normal [facility] Comment on above: Performed By: #### C MP, TSH, T4, LIPID, FT3 #### [facility] [address] [place] [address] Dr. Dinah Rodriges PROF 14(COMP METB)on 023 Albumin [Mass/Vol] 3.4 g/dL Normal 3.4-5.0 [facility] Comment on above: Performed By: #### C MP, TSH, T4, LIPID, FT3 #### [facility] [address] [place] [address] Dr. Dinah Rodriges Albumin/Globulin [Mass ratio] 1.0 {ratio} Normal [facility] Comment on above: Performed By: #### C MP, TSH, T4, LIPID, FT3 #### [facility] [address] [place] [address] Dr. Dinah Rodriges ALP [Catalytic activity/Vol] 59 U/L Normal 46-116 [facility] Comment on above: Performed By: #### C MP, TSH, T4, LIPID, FT3 #### [facility] [address] [place] [address] Dr. Dinah Rodriges ALT [Catalytic activity/Vol] 13 U/L Critically low 14-59 [facility] Comment on above: Performed By: #### C MP, TSH, T4, LIPID, FT3 #### [facility] [address] [place] [address] Dr. Dinah Rodriges Anion gap [Moles/Vol] 10.7 mmol/L Normal [facility] Comment on above: Performed By: #### C MP, TSH, T4, LIPID, FT3 #### [facility] [address] [address] [address] Dinah Rodriges AST [Catalytic activity/Vol] 14 U/L Critically low 15-37 [facility] Comment on above: Performed By: #### C MP, TSH, T4, LIPID, FT3 #### [facility] [address] [address] [address] Dinah Rodriges Bilirubin [Mass/Vol] 0.3 mg/dL Normal 0.2-1.0 [facility] Comment on above: Performed By: #### C MP, TSH, T4, LIPID, FT3 #### [facility] [address] [address] [address] Dinah Rodriges Calcium [Mass/Vol] 9.4 mg/dL Normal 8.5-10.1 [facility] Comment on above: Performed By: #### C MP, TSH, T4, LIPID, FT3 #### [facility] [address] [address] [address] Dinah Rodriges Chloride [Moles/Vol] 106 mmol/L Normal 98-107 [facility] Comment on above: Performed By: #### C MP, TSH, T4, LIPID, FT3 #### [facility] [address] [address] [address] Dinah Rodriges CO2 [Moles/Vol] 31.9 mmol/L Normal 21.0-32.0 [facility] [place] [facility] Comment on above: Performed By: #### C MP, TSH, T4, LIPID, FT3 #### [facility] [address] [address] [address] Dinah Rodriges Creatinine [Mass/Vol] 0.95 mg/dL Normal 0.55-1.02 [facility] Comment on above: Performed By: #### C MP, TSH, T4, LIPID, FT3 #### [facility] [address] [address] [address] Dinah Rodriges EGFR-AF MOROCCAN >60 Normal >=60 [facility] [place] [facility] Comment on above: Performed By: #### C MP, TSH, T4, LIPID, FT3 #### [facility] [address] [place] [address] Dr. Dinah Rodriges EGFR-NON AF MOROCCAN 57 mL/min/1.73m2 Critically low >=60 [facility] Comment on above: Performed By: #### C MP, TSH, T4, LIPID, FT3 #### [facility] [address] [place] [address] Dr. Dinah Rodriges Globulin (S) [Mass/Vol] 3.4 g/dL Normal [facility] Comment on above: Performed By: #### C MP, TSH, T4, LIPID, FT3 #### [facility] [address] [place] [address] Dr. Dinah Rodriges Glucose [Mass/Vol] 88 mg/dL Normal 74-106 [facility] Comment on above: Performed By: #### C MP, TSH, T4, LIPID, FT3 #### [facility] [address] [place] [address] Dr. Dinah Rodriges Potassium [Moles/Vol] 4.6 mmol/L Normal 3.5-5.1 [facility] Comment on above: Performed By: #### C MP, TSH, T4, LIPID, FT3 #### [facility] [address] [place] [address] Dr. Dinah Rodriges Protein [Mass/Vol] 6.8 g/dL Normal 6.4-8.2 [facility] Comment on above: Performed By: #### C MP, TSH, T4, LIPID, FT3 #### [facility] [address] [place] [address] Dr. Dinah Rodriges Sodium [Moles/Vol] 144 mmol/L Normal 136-145 [facility] Comment on above: Performed By: #### C MP, TSH, T4, LIPID, FT3 #### [facility] [address] [place] [address] Dr. Dinah Rodriges Urea nitrogen [Mass/Vol] 18.0 mg/dL Normal 7.0-18.0 [facility] Comment on above: Performed By: #### C MP, TSH, T4, LIPID, FT3 #### [facility] [address] [address] [address] Dinah Rodriges Urea nitrogen/Creatinine [Mass ratio] 18.9 mg/mg Normal [facility] Comment on above: Performed By: #### C MP, TSH, T4, LIPID, FT3 #### [facility] [address] [address] [address] Dinah Rodriges T4on 01-18-2023 T4 [Mass/Vol] 9.30 ug/dL Normal 4.80-13.90 [facility] Comment on above: Performed By: #### C MP, TSH, T4, LIPID, FT3 #### [facility] [address] [place] [address] Dr. Dinah Rodriges TSHon 01-18-2023 TSH 0.872 uIU/mL Normal 0.358-3.740 [facility] Comment on above: Performed By: #### C MP, TSH, T4, LIPID, FT3 #### [facility] [address] [place] [address] Dr. Dinah Rodriges BNPon 01-20-2022 Natriuretic peptide B (Bld) [Mass/Vol] 464.0 pg/mL Normal <=1,800.0 [facility] Comment on above: Performed By: #### T SH, BNP, T7, LIPID, CMP ####[facility] [address] [address]Dr. Dinah Rodriges CBC AUTO DIFFon 01-20-2022 BASO # 0.0 103/ul Normal 0.0-0.1 [facility] Comment on above: Performed By: #### C BC #### [facility] [address] [place] [address] Dr. Dinah Rodriges Basophils/100 WBC (Bld) 0.4 % Normal 0.2-2.0 [facility] Comment on above: Performed By: #### C BC #### [facility] [address] [place] [address] Dr. Dinah Rodriges EO # 0.1 103/ul Normal 0.0-0.7 [facility] Comment on above: Performed By: #### C BC #### [facility] [address] [place] [address] Dr. Dinah Rodriges Eosinophils/100 WBC (Bld) 1.9 % Normal 0.9-7.0 [facility] Comment on above: Performed By: #### C BC #### [facility] [address] [place] [address] Dr. Dinah Rodriges Erythrocyte distribution width (RBC) [Ratio] 12.7 % Normal 11.0-15.0 [facility] Comment on above: Performed By: #### C BC #### [facility] [address] [place] [address] Dr. Dinah Rodriges Hematocrit (Bld) [Volume fraction] 35.0 % Critically low 36.0-48.0 [facility] Comment on above: Performed By: #### C BC #### [facility] [address] [place] [address] Dr. Dinah Rodriges Hemoglobin (Bld) [Mass/Vol] 11.5 g/dL Critically low 12.0-16.0 [facility] Comment on above: Performed By: #### C BC #### [facility] [address] [place] [address] Dr. Dinah Rodriges IG # 0.01 10e3/ul Normal 0.00-0.03 [facility] Comment on above: Performed By: #### C BC #### [facility] [address] [place] [address] Dr. Dinah Rodriges IG % 0.2 % Normal 0.0-0.5 [facility] Comment on above: Performed By: #### C BC #### [facility] [address] [place] [address] Dr. Dinah Rodriges LYMPH # 1.4 103/ul Normal 1.2-3.8 [facility] Comment on above: Performed By: #### C BC #### [facility] [address] [place] [address] Dr. Dinah Rodriges Lymphocytes/100 WBC (Bld) 26.9 % Normal 20.5-60.0 [facility] Comment on above: Performed By: #### C BC #### [facility] [address] [place] [address] Dr. Dinah Rodriges MANUAL DIFF REQ NO Normal [facility] Comment on above: Performed By: #### C BC #### [facility] [address] [place] [address] Dr. Dinah Rodriges MCH (RBC) [Entitic mass] 33.0 pg Normal 26.7-34.0 [facility] Comment on above: Performed By: #### C BC #### [facility] [address] [place] [address] Dr. Dinah Rodriges MCHC (RBC) [Mass/Vol] 32.9 g/dL Normal 29.9-35.2 [facility] Comment on above: Performed By: #### C BC #### [facility] [address] [place] [address] Dr. Dinah Rodriges MCV (RBC) [Entitic vol] 100.3 fL Critically high 81.0-99.0 [facility] Comment on above: Performed By: #### C BC #### [facility] [address] [place] [address] Dr. Dinah Rodriges MONO # 0.4 103/ul Normal 0.3-0.8 [facility] Comment on above: Performed By: #### C BC #### [facility] [address] [place] [address] Dr. Dinah Rodriges Monocytes/100 WBC (Bld) 7.6 % Normal 1.7-12.0 [facility] Comment on above: Performed By: #### C BC #### [facility] [address] [place] [address] Dr. Dinah Rodriges NEUT # 3.3 103/ul Normal 1.4-6.5 [facility] Comment on above: Performed By: #### C BC #### [facility] [address] [place] [address] Dr. Dinah Rodriges Neutrophils/100 WBC (Bld) 63.0 % Normal 43.0-75.0 [facility] Comment on above: Performed By: #### C BC #### [facility] [address] [place], [place] [address] Dr. Dinah Rodriges Platelet mean volume (Bld) [Entitic vol] 10.0 fL Normal 9.5-13.5 [facility] Comment on above: Performed By: #### C BC #### [facility] [address] [address] [address] Dinah Rodriges PLT 165 103/ul Normal 150-450 [facility] Comment on above: Performed By: #### C BC #### [facility] [address] [address] [address] Dinah Rodriges RBC 3.49 106/ul Critically low 4.20-5.40 [facility] Comment on above: Performed By: #### C BC #### [facility] [address] [address] [address] Dinah Rodriges WBC 5.3 103/ul Normal 4.0-11.0 [facility] Comment on above: Performed By: #### C BC #### [facility] [address] [address] [address] Dinah Rodriges FREE THYROXINE INDEX T7on FTI 3.37 Normal 1.30-4.50 [facility] Comment on above: Performed By: #### T SH, BNP, T7, LIPID, CMP ####[facility] [address] [id number]. Dinah Rodriges T3U 34.0 % Normal 30.0-39.0 [facility] Comment on above: Performed By: #### T SH, BNP, T7, LIPID, CMP ####[facility] [address] [place], [place] [address]QlDr. Dinah Rodriges T4 [Mass/Vol] 9.90 ug/dL Normal 4.80-13.90 [facility] Comment on above: Performed By: #### T SH, BNP, T7, LIPID, CMP ####[facility] [address] [place] [id number]. Dinah Rodriges GLYCOHEMOGLOBIN A1Con 2021 ADA RECOMMENDATION SEE BELOW Normal [facility] Comment on above: Result Comment: ADA RECOMMENDED LIMIT 4.0 - 6.0 ADA THERAPEUTIC TARGET < 7.0 ACTION SUGGESTED > 7.0 Performed By: #### A 1C ####[facility] [address] [address]Dr. Dinah Rodriges Glucose [Mass/Vol] 103 mg/dL Normal [facility] Comment on above: Performed By: #### A 1C ####[facility] [address] [address]Dr. Dinah Rodriges HbA1c (Bld) [Mass fraction] 5.2 % Normal 4.5-6.2 [facility] Comment on above: Performed By: #### A 1C ####[facility] [address] [place], [place] [address]Dr. Dinah Rodriges IRONon 01-20-2022 Iron [Mass/Vol] 79.0 ug/dL Normal 50.0-170.0 [facility] Comment on above: Performed By: #### I KINZA ####[facility] [address] [place], [place] [address]Dr. Dinah Rodriges LIPID PROFILEon 01-20-2022 CHOL-HDL RATIO NORM SEE BELOW Normal [facility] Comment on above: Result Comment: 3.3 - 4.4 LOW RISK 4.4 - 7.1 AVERAGE RISK 7.1 - 11.0 MODERATE RISK >11.0 HIGH RISK Performed By: #### T SH, BNP, T7, LIPID, CMP ####[facility] [address] [address]Dr. Dinah Rodriges Cholesterol [Mass/Vol] 153 mg/dL Normal <=200 [facility] Comment on above: Performed By: #### T SH, BNP, T7, LIPID, CMP ####[facility] [address] [place], [place] [address]Dr. Dinah Rodriges Cholesterol in HDL [Mass/Vol] 54 mg/dL Normal 40-60 [facility] Comment on above: Performed By: #### T SH, BNP, T7, LIPID, CMP ####[facility] [address] [address]Dr. Dinah Rodriges Cholesterol in LDL [Mass/Vol] 78.8 mg/dL Normal [facility] Comment on above: Performed By: #### T SH, BNP, T7, LIPID, CMP ####[facility] [address] [place] [address]Dr. Dinah Rodriges Cholesterol.total/Ch olesterol in HDL [Mass ratio] 2.8 {ratio} Normal [facility] Comment on above: Performed By: #### T SH, BNP, T7, LIPID, CMP ####[facility] Btetjvpoup[address] [place] [address]Dr. Dinah Rodriges HDL NORMAL > or = 60 mg/dl - LOW CARDIOVASCULAR RISK <40 mg/dl - HIGH CARDIOVASCULAR RISK Normal [facility] Comment on above: Performed By: #### T SH, BNP, T7, LIPID, CMP ####[facility] [address] [place], [place] [address]Dr. Dinah Rodriges LDL CALC NORMAL SEE BELOW Normal [facility] Comment on above: Result Comment: <100 mg/dl OPTIMAL 100 - 129 mg/dl NEAR OR ABOVE OPTIMAL 130 - 159 mg/dl BORDERLINE HIGH 160 - 189 mg/dl HIGH >190 mg/dl VERY HIGH Performed By: #### T SH, BNP, T7, LIPID, CMP ####[facility] [address]nec[address]ct[address] [place] [address]Dr. Dinah Rodriges Triglyceride [Mass/Vol] 101 mg/dL Normal <=150 [facility] Comment on above: Performed By: #### T SH, BNP, T7, LIPID, CMP ####[facility] F[address]ib[address] [place] [address]Dr. Dinah Rodriges VLDL CALC 20.2 mg/dL Normal [facility] Comment on above: Performed By: #### T SH, BNP, T7, LIPID, CMP ####[facility] [address]mgvjkogdq[address] [place] [address]Dr. Dinah Rodriges MG MAMM SCREEN 3D TENZIN CADon 01-20-2022 MG MAMM SCREEN 3D TENZIN CAD Patient: NEREIDA AGOSTOSimran Exam Date: 01/20/2022 : 1940 Gender:F Ordering : DR JACINTO SERVIN . Admission #: [id number] Family : Order #: [id number] CLICK HERE TO VIEW EXAM RADIOLOGY REPORT [...] No Treatments None Family Cancers None LOCATION: [facility] BREAST COMPOSITION: Scattered areas fibroglandular density. [...] Monzon MD on 01/20/2022 at 11:33 Normal [facility] PROF 14(COMP METB)on 022 Albumin [Mass/Vol] 3.3 g/dL Critically low 3.4-5.0 Th [facility] Comment on above: Performed By: #### T SH, BNP, T7, LIPID, CMP ####[facility] Znwpaksjpy[address] [place] [address]Dr. Dinah Rodriges Albumin/Globulin [Mass ratio] 1.0 {ratio} Normal [facility] Comment on above: Performed By: #### T SH, BNP, T7, LIPID, CMP ####[facility] [address]eqwke[address]fjm[address] [place] [id number]. Dinah Rodriges ALP [Catalytic activity/Vol] 69 U/L Normal 46-116 [facility] Comment on above: Performed By: #### T SH, BNP, T7, LIPID, CMP ####[facility] [address]qu[address]wh[address] [place] [id number]. Dinah Rodrigse ALT [Catalytic activity/Vol] 6 U/L Critically low 14-59 [facility] Comment on above: Performed By: #### T SH, BNP, T7, LIPID, CMP ####[facility] [address]tujaqrmxc[address] [place] [address]Dr. Dinah Rodriges Anion gap [Moles/Vol] 8.7 mmol/L Normal [facility] Comment on above: Performed By: #### T SH, BNP, T7, LIPID, CMP ####[facility] Bdf[address] [place], [place] [address]Dr. Dinah Rodriges AST [Catalytic activity/Vol] 12 U/L Critically low 15-37 [facility] Comment on above: Performed By: #### T SH, BNP, T7, LIPID, CMP ####[facility] [address] [place], [place] [address]Dr. Dinah Rodriges Bilirubin [Mass/Vol] 0.3 mg/dL Normal 0.2-1.0 [facility] Comment on above: Performed By: #### T SH, BNP, T7, LIPID, CMP ####[facility] [address]se[address] [place], [place] [address]Dr. Dinah Rodriges Calcium [Mass/Vol] 9.3 mg/dL Normal 8.5-10.1 [facility] Comment on above: Performed By: #### T SH, BNP, T7, LIPID, CMP ####[facility] A[address]vib[address]fmr[address] [place], [place] [address]Dr. Dinah Rodriges Chloride [Moles/Vol] 104 mmol/L Normal 98-107 [facility] Comment on above: Performed By: #### T SH, BNP, T7, LIPID, CMP ####[facility] [address] [place], [place] [address]Dr. Dinah Rodriges CO2 [Moles/Vol] 33.2 mmol/L Critically high 21.0-32.0 [facility] Comment on above: Performed By: #### T SH, BNP, T7, LIPID, CMP ####[facility] [address]ens[address] [place], [place] [address]Dr. Dinah Rodriges Creatinine [Mass/Vol] 1.11 mg/dL Critically high 0.55-1.02 [facility] Comment on above: Performed By: #### T SH, BNP, T7, LIPID, CMP ####[facility] [address]wsaxqks[address] [place] [address]Dr. Lizlan Rodriges EGFR-AF MOROCCAN 57 mL/min/1.73m2 Critically low >=60 [facility] Comment on above: Performed By: #### T SH, BNP, T7, LIPID, CMP ####[facility] S[address] [place], [place] [address]Dr. Yilan Rodriges EGFR-NON AF MOROCCAN 47 mL/min/1.73m2 Critically low >=60 [facility] Comment on above: Performed By: #### T SH, BNP, T7, LIPID, CMP ####[facility] Rr[address] [place], [place] [address]Dr. Dinah Rodriges Globulin (S) [Mass/Vol] 3.4 g/dL Normal [facility] Comment on above: Performed By: #### T SH, BNP, T7, LIPID, CMP ####[facility] [address]kw[address] [place], [place] [address]Dr. Lizlan Rodriges Glucose [Mass/Vol] 84 mg/dL Normal 74-106 [facility] Comment on above: Performed By: #### T SH, BNP, T7, LIPID, CMP ####[facility] [address] [place], [place] [address]Dr. Lizlan Rodriges Potassium [Moles/Vol] 4.9 mmol/L Normal 3.5-5.1 [facility] Comment on above: Performed By: #### T SH, BNP, T7, LIPID, CMP ####[facility] Lnezpsuc[address] [place], [place] [address]Dr. Lizlan Rodriges Protein [Mass/Vol] 6.7 g/dL Normal 6.4-8.2 [facility] Comment on above: Performed By: #### T SH, BNP, T7, LIPID, CMP ####[facility] [address]ir[address] [place], [place] [address]Dr. Lizlan Rodriges Sodium [Moles/Vol] 141 mmol/L Normal 136-145 [facility] Comment on above: Performed By: #### T SH, BNP, T7, LIPID, CMP ####[facility] [address] [place] [address]Dr. Dinah Rodriges Urea nitrogen [Mass/Vol] 18.0 mg/dL Normal 7.0-18.0 [facility] Comment on above: Performed By: #### T SH, BNP, T7, LIPID, CMP ####[facility] [address]ry[address] [place] [address]Dr. Dinah Rodriges Urea nitrogen/Creatinine [Mass ratio] 16.2 mg/mg Normal [facility] Comment on above: Performed By: #### T SH, BNP, T7, LIPID, CMP ####[facility] [address]mpkw[address]se[address] [place] [address]Dr. Dinah Rodriges TSHon 01-20-2022 TSH 1.061 uIU/mL Normal 0.358-3.740 [facility] Comment on above: Performed By: #### T SH, BNP, T7, LIPID, CMP ####[facility] [address] [place] [address]Dr. Dinah Rodriges TSH RANGE SEE BELOW Normal [facility] Comment on above: Result Comment: <0.3 4 UIU/ml HYPERTHYROID 0.34-5.60 UIU/ml EUTHYROID >5.60 UIU/ml HYPOTHYROID Performed By: #### T SH, BNP, T7, LIPID, CMP ####[facility] Ylabgtifrr[address] [place] [address]Dr. Dinah Rodriges XR DEXA BONE DENSITYon 01-20 [...] DUDLEY RYDER Date: 2022-01-20 11:30 Normal [facility] Cardiovascular Lab Reporton 12-23-2018 Cardiovascular Lab Report [facility] Rub[facility] MR #: [id number] Department of Physician: Martha Seymour M.D. Division of Service Date: 12/23/2018 Cardiology Birthdate: 1940 Adult Cardiovascular Room #: [place] [address] Cardiovascular Laboratory Report PROCEDURE: Transesophageal echocardiogram and cardioversion. INDICATION: Atrial fibrillation. FELLOW: Neto Doty MD PROCEDURE IN DETAIL: An informed consent was obtained from the patient after explaining the indication, risks and benefits, and alternatives. The patient understood and agreed and signed the consent form. The patient was brought to the solar lab technician and transesophageal echocardiogram was performed under [...] will follow up with me in the [facility] in 2-4 weeks Electronically Signed by: Goldie Vaughan M.D. 01/05/2019 08:36 A Goldie Vaughan M.D. I was present for the entire procedure. Date Dict: 12/23/2018/03:28 P/Neto Doty MD Date Trans: 12/23/2018 04:19 P/beth [id number] cc: Jacinto Servin M.D. [address] Alek Barrios [facility] [address] Normal [facility] Cardiovascular Lab Reporton 12-16-2018 Cardiovascular Lab Report [facility] MR #: [id number] Department of Physician: Martha Ken M.D. Division of Service Date: 12/15/2018 Cardiology Birthdate: 1940 Adult Cardiovascular Room #: 3CD [id number] [place] [address] Cardiovascular Laboratory Report CLINICAL PRESENTATION: The patient is a 78-year-old female with past medical history significant for hypertension. She was admitted to [facility] with worsening shortness of breath. She was diagnosed with acute congestive heart failure and atrial fibrillation with a rapid ventricular rate. She was evaluated by my colleague, Dr. Lee, [place] Cardiology. EKG showed ST elevations in the anterolateral leads and she was transferred urgently to the [facility] due to possible acute myocardial infarction. FINAL [...] ultrasound guidance and micropuncture access technique, a 6-Slovak sheath placed in the right common femoral [...] Cano M.D. Date Trans: 12/16/2018 06:03 A/beth [id number] cc: Jacinto Servin M.D. [address] [facility] [address] Peter Lee M.D. [facility] [place] [address] Normal [facility] BASIC METABOLIC PANELon 12-05 Calcium [Mass/Vol] 9.3 mg/dL Normal 8.6-10.3 [facility] Comment on above: Order Comment: No: D o not add to previous draw Performed By: #### 4 6413, 48200, 70410, 07783, 50555 #### [facility] [address] [place] [address], [place] Chloride [Moles/Vol] 102 mmol/L Normal 98-107 [facility] Comment on above: Order Comment: No: D o not add to previous draw Performed By: #### 4 6413, 92499, 36946, 72176, 71840 #### [facility] [address] [place] [address], [place] CO2 [Moles/Vol] 27 mmol/L Normal 21-31 [facility] Comment on above: Order Comment: No: D o not add to previous draw Performed By: #### 4 6413, 09477, 66629, 03542, 80909 #### [facility] [address] [place] [address], [facility] Creatinine [Mass/Vol] 0.91 mg/dL Normal 0.60-1.20 [facility] Comment on above: Order Comment: No: D o not add to previous draw Performed By: #### 4 6413, 84879, 96308, 03526, 54237 #### [facility] [address] [place] [address], [facility] GFR/1.73 sq M predicted among blacks MDRD (S/P/Bld) [Vol rate/Area] mL/min/{1.73_m2} Normal >60 [facility] Comment on above: Order Comment: No: D o not add to previous draw Result Comment: Calc ulation may not be valid for patients over 70 years Performed By: #### 4 6413, 77605, 02017, 65542, 67097 #### [facility] [address] [place] [address], [facility] GFR/1.73 sq M predicted among non-blacks MDRD (S/P/Bld) [Vol rate/Area] mL/min/{1.73_m2} Normal >60 [facility] Comment on above: Order Comment: No: D o not add to previous draw Result Comment: Calc ulation may not be valid for patients over 70 years Performed By: #### 4 6413, 26750, 09933, 25700, 46501 #### [facility] [address] [place] [address], [place] Glucose [Mass/Vol] 130 mg/dL High 70-100 [facility] Comment on above: Order Comment: No: D o not add to previous draw Performed By: #### 4 6413, 73674, 37011, 08724, 95906 #### [facility] [address] [place] [address], [facility] Potassium [Moles/Vol] 3.5 mmol/L Normal 3.5-5.1 [facility] Comment on above: Order Comment: No: D o not add to previous draw Performed By: #### 4 6413, 02405, 03505, 06450, 57645 #### [facility] [address] [place] [address], [facility] Sodium [Moles/Vol] 140 mmol/L Normal 136-145 [facility] Comment on above: Order Comment: No: D o not add to previous draw Performed By: #### 4 6413, 35147, 99069, 69057, 21442 #### [facility] [address] [place] [address], [facility] Urea nitrogen [Mass/Vol] 19 mg/dL Normal 7-25 [facility] Comment on above: Order Comment: No: D o not add to previous draw Performed By: #### 4 6413, 55623, 46170, 65882, 02562 #### [facility] [address] [place] [address], [facility] BNP (B-TYPE NATRIURETIC PEPT CORI)on 12-15-2018 Natriuretic peptide B (Bld) [Mass/Vol] 369 pg/mL High 0-100 [facility] Comment on above: Order Comment: No: D o not add to previous draw Result Comment: Give n the appropriate clinical setting a BNP result of >100 pg/mL indicates congestive heart failure. Performed By: #### 8 5123, 63788 #### [facility] [address] [place] [address], [facility] CBC COMPLETE BLOOD COUNTon 0 12-15-2018 Erythrocyte distribution width (RBC) [Ratio] 12.9 % Normal 11.5-15.0 [facility] Comment on above: Order Comment: No: D o not add to previous draw Performed By: #### 5 0608 #### [facility] [address] Hematocrit (Bld) [Volume fraction] 39.0 % Normal 36.0-45.0 [facility] Comment on above: Order Comment: No: D o not add to previous draw Performed By: #### 5 0608 #### [facility] [address] [place] [address], [facility] Hemoglobin (Bld) [Mass/Vol] 12.6 g/dL Normal 12.0-15.0 [facility] Comment on above: Order Comment: No: D o not add to previous draw Performed By: #### 5 0608 #### [facility] [address] [place] [address], [facility] MCH (RBC) [Entitic mass] 31.6 pg Normal 27.0-33.0 [facility] Comment on above: Order Comment: No: D o not add to previous draw Performed By: #### 5 0608 #### [facility] [address] [place] [address], [facility] MCHC (RBC) [Mass/Vol] 32.3 g/dL Normal 32.0-35.0 [facility] Comment on above: Order Comment: No: D o not add to previous draw Performed By: #### 5 0608 #### [facility] [address] [place] [address], [facility] MCV (RBC) [Entitic vol] 97.7 fL Normal 82.0-98.0 [facility] Comment on above: Order Comment: No: D o not add to previous draw Performed By: #### 5 0608 #### [facility] [address] [facility] [place] [address], [facility] Nucleated RBC/100 WBC (Bld) [Ratio] 0 % Normal 0-0 [facility] Comment on above: Order Comment: No: D o not add to previous draw Performed By: #### 5 0608 #### [facility] [address] [place] [address], [facility] PLAT CNT 252 10*3/uL Normal 150-400 [facility] Comment on above: Order Comment: No: D o not add to previous draw Performed By: #### 5 0608 #### [facility] [address] [place] [address], [facility] RBC (Bld) [#/Vol] 3.99 10*6/uL Normal 3.80-5.00 The [facility] Comment on above: Order Comment: No: D o not add to previous draw Performed By: #### 5 0608 #### [facility] [address] [place] [address], [facility] WBC (Bld) [#/Vol] 8.04 10*3/uL Normal 4.00-10.60 [facility] Comment on above: Order Comment: No: D o not add to previous draw Performed By: #### 5 0608 #### [facility] [address] HEMOGLOBIN A1Con 12-15-2018 HbA1c (Bld) [Mass fraction] 108 mg/dL Normal 70-126 [facility] Comment on above: Order Comment: No: D o not add to previous draw Performed By: #### 8 5123, 43840 #### [facility] [address] [place] [address], [facility] HbA1c (Bld) [Mass fraction] 5.4 % Normal 4.0-6.0 [facility] Comment on above: Order Comment: No: D o not add to previous draw Performed By: #### 8 5123, 50936 #### [facility] [address] [place] [address], [facility] LIPID PROFILEon 12-15-2018 Cholesterol [Mass/Vol] 138 mg/dL Normal 120-200 [facility] Comment on above: Order Comment: No: D o not add to previous draw Result Comment: CHOL ESTEROL REFERENCE RANGE: 20 YEARS AND OLDER CARDIOVASCULAR RISK Less than 200 mg/dl Low Risk 200 to 239 mg/dl Borderline Risk 240 mg/dl and greater High Risk Performed By: #### 4 6413, 47693, 02744, 81885, 38982 #### [facility] [address] [place] [address], [facility] Cholesterol in HDL [Mass/Vol] 36 mg/dL Normal 23-92 [facility] Comment on above: Order Comment: No: D o not add to previous draw Result Comment: Slig ht variation in normal range could be due to gender and/or age. HDL CHOLESTEROL REFERENCE RANGE: 20 years and older Cardiovascular Risk > or =60 mg/dL Desirable 40 TO 59 mg/dL Low Risk <40 mg/dL High Risk Performed By: #### 4 6413, 18680, 23089, 56431, 32100 #### [facility] [address] [place] [address], [facility] Cholesterol in LDL [Mass/Vol] 81 mg/dL Normal 0-130 [facility] Comment on above: Order Comment: No: D o not add to previous draw Result Comment: LDL IS A CALCULATION LDL IS ONLY VALID IF THE TRIG IS LESS THAN 400. Performed By: #### 4 6413, 10195, 83221, 20491, 35059 #### [facility] [address] [place] [address], [facility] Cholesterol.total/Ch olesterol in HDL [Mass ratio] 3.8 {ratio} Normal .0-4.5 [facility] Comment on above: Order Comment: No: D o not add to previous draw Performed By: #### 4 6413, 46788, 33878, 63498, 70700 #### [facility] [address] [place] [address], [place] NON-HDL CHOLESTEROL 102 mg/dL Normal [facility] Comment on above: Order Comment: No: D o not add to previous draw Performed By: #### 4 6413, 84976, 89983, 61531, 01500 #### [facility] [address] Triglyceride [Mass/Vol] 106 mg/dL Normal 40-149 [facility] Comment on above: Order Comment: No: D o not add to previous draw Result Comment: TRIG LYCERIDE REFERENCE RANGE: 20 YEARS AND OLDER CARDIOVASCULAR RISK LESS THAN 150 mg/dl LOW RISK 150 TO 199 mg/dl BORDERLINE RISK 200 mg/dl AND GREATER HIGH RISK Performed By: #### 4 6413, 75878, 08366, 45761, 28988 #### [facility] [address] [facility]. [address] VLDL CHOL 21 mg/dL Normal 0-40 [facility] Comment on above: Order Comment: No: D o not add to previous draw Performed By: #### 4 6413, 56085, 67318, 65900, 05805 #### [facility] [address] [facility] [place], [place] [address] [place] [address] MAGNESIUM BLOODon 12-15-2018 Magnesium [Mass/Vol] 1.9 mg/dL Normal 1.9-2.7 [facility] Comment on above: Order Comment: No: D o not add to previous draw Performed By: #### 4 6413, 49724, 89576, 77205, 60878 #### [facility] [address] [facility] [place] [address], [facility] PHOSPHORUS BLOODon 9 Phosphate [Mass/Vol] 4.5 mg/dL Normal 2.5-5.0 [facility] Comment on above: Order Comment: haider figueroa request Performed By: #### 4 6413, 52292, 30966, 25862, 39510 #### [facility] [address] [facility] [place] [address], [facility] PORTABLE CHEST 1 VIEWon 12-05 PORTABLE CHEST 1 VIEW [facility] Department of Radiology [address] [place] [address] Patient Name: NEREIDA AGOSTO : 1940 Sex: F Age: Race: White Pt. Location: [address] [place] [address] Patient Status: I Ordered Date: 12/15/2018 2:10:00 PM Completed Date: 12/15/2018 02:48 PM Requesting Provider: STEHPY RODRIGUEZ Attending Provider: CHAPITO SHIPLEY Report Copy [...] failure Electronically signed by:Bharti Bazan. Transcribed by: [email or web address], User Resident: Electronically Signed by: BHARTI BAZAN @ 12/15/2018 03:50 PM Normal [facility] Comment on above: Order Comment: R/O C HF TSH3on 12-15-2018 TSH 3RD GENERATION 0.86 uIU/mL Normal 0.34-5.60 The [facility] Comment on above: Performed By: #### 4 6413, 52077, 13598, 76069, 59821 #### [facility] [address] [place] [address], [facility] Vital Signs Date Time Vital Sign Value Performing Clinician Clemencia larry 03-15-2024 13:44-0400 Blood Pressure Location Rashi NILL [facility] [place] 03-15-2024 13:44-0400 Diastolic blood pressure 80 mm[Hg] Rashi NILL [facility] [place] 03-15-2024 13:44-0400 Heart rate 76 /min Rashi NILL [facility] [place] 03-15-2024 13:44-0400 Respiratory rate 16 /min Rashi NILL [facility] [place] 03-15-2024 13:44-0400 Systolic blood pressure 118 mm[Hg] Rashi NILL [facility] [place] 02-02-2023 14:45-0400 Blood Pressure Location Rashi NILL [facility] [place] 02-02-2023 14:45-0400 Diastolic blood pressure 76 mm[Hg] Rashi NILL [facility] [place] 02-02-2023 14:45-0400 Heart rate 74 /min Rashi NILL [facility] [place] 02-02-2023 14:45-0400 Respiratory rate 16 /min Rashi NILL [facility] [place] 02-02-2023 14:45-0400 Systolic blood pressure 126 mm[Hg] Rashi NILL General [facility] Encounters Encounter Date Encounter Type Care Provider Facility Start: 04-13-2024 End: 04-13-2024 ambulatory ROD AGUAYO Not Available Start: 03-29-2024 End: 03-29-2024 ambulatory ROD AGUAYO Not Available Start: 03-15-2024 End: 03-15-2024 ambulatory Rashi JOHN Facility: [place] Start: 03-15-2024 End: 03-15-2024 Patient encounter procedure Rashi R NILL JolynnJames [facility] [place] Start: 02-07-2024 End: 02-07-2024 [facility] Start: 10-28-2023 End: 10-28-2023 ambulatory KHANG [facility] Start: 08-05-2023 End: 08-05-2023 ambulatory [facility] Start: 03-05-2023 End: 03-05-2023 Patient encounter procedure Rashi R JAXL General Surgery Nill/Said [place] Start: 02-19-2023 End: 02-19-2023 ambulatory [facility] Start: 02-02-2023 End: 02-02-2023 Patient encounter procedure Rashi CAMARAL General Surgery N[place]/Said [place] Start: 01-21-[address] JACINTO SERVIN . Facili ty:[facility] Start: 01-19-2023 End: 01-19-[address] JACINTO SERVIN . Facility:[facility] Start: 01-18-2023 End: 01-19-[address] JACINTO SERVIN . Facility:[facility] Start: 01-20-2022 End: 01-21-[address] JACINTO SERVIN . Facility:[facility] Start: 12-23-2018 End: 12-24-2018 Patient encounter procedure AB Harvey VAUGHAN Facility:[facility] Start: 12-15-2018 End: 12-16-2018 Evaluation and management of inpatient PETER LEE Facility:[facility] Procedures Date Procedure Procedure Detail Performing [...] Immunization Date Immunization Notes Care Provider Fa [facility] 07-21-2022 influenza virus vaccine, unspecified formulation Rashi JOHN [facility] [place] 08-28-2021 SARS-CoV-2 (COVID-19 ) mRNA-1273 vaccine Rashi JOHN [facility] [place] 11-14-2020 SARS-CoV-2 (COVID-19 ) mRNA-1273 vaccine Rashi JOHN [facility] [place] 10-18-2020 SARS-CoV-2 (COVID-19 ) mRNA-1273 vaccine Rashi JOHN [facility] [place] Payers Date Payer Category Payer [employer]) [id number] 2018 Medicare [id number] 1959 [employer] others) [id number] 1957 Medicare [id number] 1940 Unknown [id number] 1940 Unknown [id number] 1940 Unknown [id number] 1940 Unknown [id number] [id number] 1940 Unknown [id number] [id number] 1940 Unknown [id number] [id number] 1940 Unknown [id number] [id number] 1940 Unknown [id number] [id number] 1940 Unknown [id number] [id number] 1940 Unknown [id number] Social History Date Type Detail Facility Start: 02-02-2023 End: 03-15-2024 Tobacco smoking status Ex-smoker (finding) General [facility] [place] Tobacco smoking status Never Gener al [facility] [place] Sex Assigned At Female [facility] Functional Status Date Assessment Result Facility 03-15-2024 Functional Status N/A [facility] [place] 02-02-2023 Functional Status N/A [place] Progress note 02-07-2024 Note Date & Type Note Facility 02-07-2024 Note [facility] Note Chief Complaint: Patient [...] is seen in (more content not included)... [facility] Progress note 10-28-2023 Note Date & Type Note Facility 10-28-2023 Note [facility]iology [place] [facility] Note SUBJECTIVE No chief complaint on [...] 4.9, GFR 47 (more content not included)... [facility] Progress note 10-28-2023 Note Date & Type [...] All other systems reviewed and are negative. [facility] Progress note 08-05-2023 Note Date & Type [...] All other systems reviewed and are negative. [facility] Progress note 08-05-2023 Note Date & Type [...] aorta. - Succes (more content not included)... [facility] Progress note 06-16-2023 Note Date & Type [...] 08/21/2023). Flaquito Rojas (more content not included)... [facility] Evaluation + Plan note Note Date & Type Note Facility Evaluation + Plan note No data available for this section [facility] [place] [facility] Discharge instructions Note Date & Type Note Facility Hospital Discharge instructions No data available for this section General [facility] [place] Progress note Note Date & Type Note Facility Progress note No data available for this section General [facility] [place] Summary Purpose Family History No Family History Records FoundNo Family History Records FoundNo Family History Records FoundNo Family History Records Found No data available for this section No Family History Records Found Advance Directives No Advanced Directives Records FoundNo Advanced Directives Records FoundNo Advanced Directives Records FoundNo Advanced Directives Records FoundNo Advanced Directives Records Found Hospital Course Note MR#: [id number] [facility] Pt. Name: Nereida Agosto Admitted: 12/15/2018 [...] was sent to the ER. Apparently in [facility], the patient was found to have decompensated heart failure with new onset of atrial fibrillation. She was in rapid ventricular response. The patient was admitt (more content not included)... Additional Source Comments INFORMATION SOURCE (unrecogn ized section and content) DATE CREATED AUTHOR 04/29/2019 [facility] DATE CREATED AUTHOR AUTHOR'S ORGANIZ ATION 01/19/2023 [facility] DATE CREATED AUTHOR AUTHOR'S ORGANIZ ATION 02/07/2024 [facility] DATE CREATED AUTHOR AUTHOR'S ORGANIZ ATION 03/21/2024 [facility] DATE CREATED AUTHOR AUTHOR'S ORGANIZ ATION 04/15/2024 [facility] EPIC Patient Care team informatio n (unrecognized section and content) Personnel Name: Jacinto Servin MD Address: Address: [address] [place] [address] Personnel Name: Jacinto Servin MD Address: Address: [address] [place] [address] Personnel Name: Jacinto Servin MD Address: Address: [address] [place] [address] FOR RECORDS PERTAINING TO PATIENTS WHO ARE [...] BE BASED ON THE PRIMARY CLINICAL RECORDS. [facility] [employer] [facility]. provides no warranty or guarantee of the accuracy or completeness of information in this document.
[2024-04-26 06:45] VITALS: BMI 31.6
[2024-04-26] MEDS: LACTATED RINGER'S SOLUTION 1,000 ML 50 ML IV (07:13)
[2024-04-26 08:35] VITALS: BP 76/43; PULSE 93; O2SAT 97
[2024-04-26 08:40] VITALS: BP 70/34
[2024-04-26 08:46] VITALS: BP 70/34; PULSE 98
[2024-04-26 08:48] VITALS: BP 105/48; PULSE 83
[2024-04-26 08:57] VITALS: BP 102/71; PULSE 93; O2SAT 97
--- NOTE | 2024-04-26 09:01 | PC.NURSE ---
Lying on left side; respirations even and unlabored; IV wide open; anesthesia present.
--- NOTE | 2024-04-26 09:03 | PC.NURSE ---
Awakens to verbal stimuli and returns to sleep. Respirations even and unlabored.Anesthesia present
--- NOTE | 2024-04-26 09:07 | PC.NURSE ---
Medication given by anesthesia for low blood pressure.
== END 2024-04-26 09:15 | disposition home or self-care (01) ==
PROVIDERS: PCP Family Medicine; Visit Provider Surgery
PROC: (CPT 45385; principal; 2024-04-26 07:55)
DX: Z86.010 Personal history of colon polyps (principal); K57.30 Diverticulosis of large intestine without perforation or abscess without bleeding; D12.0 Benign neoplasm of cecum; I48.91 Unspecified atrial fibrillation; E03.9 Hypothyroidism, unspecified; Z79.01 Long term (current) use of anticoagulants; Z87.891 Personal history of nicotine dependence; E78.5 Hyperlipidemia, unspecified; I50.9 Heart failure, unspecified; I11.0 Hypertensive heart disease with heart failure; M81.0 Age-related osteoporosis without current pathological fracture; Z86.16 Personal history of COVID-19
CPT/HCPCS: 45385; 88305; J2371; J2704

== ENCOUNTER 2024-04-28 14:13 | Outpatient (RCR) | payer MEDICARE, OTHER, SELFPAY | END 2024-06-13 09:41 | disposition home or self-care (01) | LOC: PT 14:13 | PROVIDERS: PCP Family Medicine; Visit Provider Family Medicine | DX: R26.89 Other abnormalities of gait and mobility (principal) | CPT/HCPCS: 95992; 97110; 97112; 97162 ==

== ENCOUNTER 2024-05-03 07:30 | Outpatient (RCR) | payer MEDICARE, OTHER, SELFPAY ==
[2024-05-03 12:10] VITALS: BP 84/53; PULSE 79; TEMP 36.6; O2SAT 98
[2024-05-03] MEDS: DENOSUMAB 60 MG/ML SYRINGE SUBQ (12:31)
--- NOTE | 2024-05-03 13:36 | PC.NURSE ---
1210: Pt. to [facility] amb. for Prolia injection. Seated in recliner. Educated on drug, no questions voiced. VSS. 1231: Pt. medicated with Prolia as ordered, see MAR. No bleeding to site. Pt. tolerated without c/o. Remains seated in recliner for brief observation. 1250: Pt. d/c'd amb. to home.
== END 2024-05-06 23:59 | disposition home or self-care (01) ==
LOC: INF 07:30
PROVIDERS: PCP Family Medicine; Visit Provider Physician Assistant
DX: M81.0 Age-related osteoporosis without current pathological fracture (principal)
CPT/HCPCS: 96372; J0897

== ENCOUNTER 2024-11-15 07:33 | Outpatient (RCR) | payer MEDICARE, OTHER, SELFPAY ==
[2024-11-15 10:35] VITALS: BP 118/81; PULSE 72; TEMP 36.3; O2SAT 94
--- NOTE | 2024-11-15 10:50 | PC.NURSE ---
1050: Lab in for blood draw
[2024-11-15 11:07] LABS: Calcium 9.4 mg/dL (8.5-10.1); Estimated GFR (African America 47 (>=60 mL/min/1.73m^2); Estimated GFR (Non-African Ame 39 (>=60 mL/min/1.73m^2)
[2024-11-15] MEDS: DENOSUMAB 60 MG/ML SYRINGE SUBQ (11:13)
== END 2024-11-27 10:30 | disposition home or self-care (01) ==
LOC: INF 07:33
PROVIDERS: PCP Family Medicine; Visit Provider Physician Assistant
DX: M81.0 Age-related osteoporosis without current pathological fracture (principal); I51.81 Takotsubo syndrome
CPT/HCPCS: 36415; 82310; 82565; 93306; 96372; J0897

== ENCOUNTER 2024-11-15 09:25 | Outpatient (OUT) | payer MEDICARE, OTHER, SELFPAY ==
--- OUTSIDE RECORDS SUMMARY | 2024-11-15 09:33 | XMS_ITS | CCD ---
Author Organization [facility] Care Team Providers Care Geotechnical Engineer Name Role Phone PETER LEE Referring Unavailable JACINTO SERVIN Primary Care Unavailable CHAPITO SHIPLEY Attending Unavailable CHAPITO SHIPLEY Admitting Unavailable NE Procedure Practitioner Unavailab SILVIANO Rendon Surgeon Unavailable ELTAHAWY, EHAB A Admitting Unavailable ELTASHELLY, EHAB A Attending Unavailable JACINTO SERVIN Referring Unavailable JACINTO SERVIN Primary Care Unavailable HOY ., DR CASEY Admitting Unavailable HOY ., DR CASEY Primary Care Unavailable HOY ., DR CASEY Consulting Unavailable HOY ., DR CASEY Attending Unavailable HOY ., DR CASEY Admitting Unavailable HOY ., DR CASEY Primary Care Unavailable HOY ., DR CASEY Consulting Unavailable HOY ., DR CASEY Attending Unavailable VENUS, DR KELSI Aguirre Consulting Unavailable ZIEBER, DR DUDLEY Lee Consulting Unavailable HOY ., DR CASEY Admitting Unavailable HOY ., DR CASEY Primary Care Unavailable HOY ., DR CASEY Attending Unavailable HOY ., DR CASEY Admitting Unavailable HOY ., DR CASEY Primary Care Unavailable HOY ., DR CASEY Consulting Unavailable HOY ., DR CASEY Attending Unavailable Jacinto Servin Primary Care Physician MALIA BALLARD Attending Unavailable KHANG LORENZO Attending Unavailable MALIA BALLARD Attending Unavailable ELTAHAWY, EHAB Attending Unavailable ROD AGUAYO Attending Unavailable ROD AGUAYO Attending Unavailable ROD AGUAYO Attending Unavailable MD Rashi Swan Attending Provider Rashi Swan Attending Unavailable Rashi Swan Admitting Unavailable Harmony Bettencourt Attending Unavailable Harmony Bettencourt Attending Unavailable Rashi SWAN Attending Unavailable Rashi SWAN Attending Unavailable Rashi SWAN Attending Unavailable Harmony Bettencourt Admitting Unavailable Harmony Bettencourt Attending Unavailable Harmony Bettencourt Referring Unavailable Harmony Bettencourt Attending Unavailable Allergies Allergy Classification Reported Allergen(s) Allergy Type Date of Onset Reaction(s) Facility (9 sources) Sulfonamides (Antibiotic); Translations: [sulfa drugs] Drug allergy Unknown (qualifier value) General Surgery Anneliese (2 sources) Sulfonamides (Antibiotic); Translations: [SULFA (SULFONAMIDE ANTIBIOTICS)] Propensity to adverse reactions to drug (disorder) 0 [facility] (2 sources) ALPRAZolam; Translations: [Xanax] Drug Allergy [facility] Repository Medications Current Medications Medication Drug Class(es) Dates Sig (Normalized) Sig (Original) amiodarone hydrochloride 100 mg oral tablet (2 sources) Antiarrhythmic Start: 02-06-2020 take 100 mg by mouth once daily in the morning Amiodarone Active 100 MG PO Every morning February 06, 2020 12:00am Start: 02-02-2020 End: 02-06-2020 take 200 mg by mouth once daily Amiodarone Discontinued 200 MG PO Daily February 02, 2020 12:00am February 06, 2020 12:53pm apixaban 5 mg oral tablet (8 sources) Factor Xa Inhibitor Start: 02-02-2020 take 1 tablet by mouth twice daily aspirin 81 mg delayed release oral tablet (6 sources) Platelet Aggregation Inhibitor, Nonsteroidal Anti-inflammatory Drug Start: 03-15-2024 take 1 tablet by mouth once daily aspirin 81 mg Oral EC Tab 81 mg = 1 tab(s), Oral, Daily, Refills(s) 0, Prophylaxis Start Date: 03/15/24 Status: Ordered Start: 12-14-2017 End: 02-02-2020 take 81 mg by mouth once daily Aspirin Discontinued 81 MG PO Daily December 14, 2017 12:00am February 02, 2020 1:51pm carvedilol 12.5 mg oral tablet (9 sources) alpha-Adrenergic Elvin, beta-Adrenergic Elvin Start: 01-22-2023 take 1 tablet by mouth twice daily carvedilol 12.5 mg Tab 12.5 mg = 1 tab(s), Oral, BID, Refills(s) 0, High blood pressure Start Date: 01/22/23 Status: Ordered Start: 02-06-2020 take 3.125 mg by brittani th twice daily at mealtime Carvedilol Active 3.125 MG PO Twice daily with meals 60 February 06, 2020 12:00am Start: 02-02-2020 End: 02-06-2020 take 6.25 mg by mouth twice daily Carvedilol Discontinued 6.25 MG PO Twice daily February 02, 2020 12:00am February 06, 2020 12:53pm ferrous sulfate 325 mg oral tablet (3 sources) Start: 01-22-2023 take 1 tablet by mouth twice daily ferrous sulfate 325 mg Tab 325 mg = 1 tab(s), Oral, BID, Refills(s) 0 Start Date: 01/22/23 Status: Ordered Start: 02-06-2020 take 325 mg by mouth every other day Ferrous Sulfate Active 325 MG PO Q2D February 06, 2020 12:00am furosemide 20 mg oral tablet (8 sources) Loop Diuretic Start: 02-02-2020 take 1 tablet by mouth once daily hydrOXYzine pamoate 25 mg oral capsule (1 source) Antihistamine Start: 02-06-2020 Hydroxyzine Pamoate Active 25 MG PO every 6 to 8 hours February 06, 2020 12:00am 1 to 2 tablets as needed for spasm levothyroxine sodium 0.05 mg oral tablet (8 sources) l-Thyroxine Start: 01-22-2023 take 1 tablet by mouth once daily Start: 02-02-2020 take 50 ug by mouth once daily Levothyroxine Active 50 MCG PO Daily February 02, 2020 12:00am lisinopril 20 mg oral tablet (8 sources) Angiotensin Converting Enzyme Inhibitor Start: 01-22-2023 take 1 tablet by mouth once daily Start: 02-02-2020 take 5 mg by mouth once daily Lisinopril Active 5 MG PO Daily February 02, 2020 12:00am meclizine hydrochloride 25 mg oral tablet (7 sources) Antiemetic Start: 02-02-2023 take 1 tablet by mouth twice daily meclizine 25 mg Tab 25 mg = 1 tab(s), Oral, BID, Refills(s) 0 Start Date: 02/02/23 Status: Ordered oxyCODONE hydrochloride 5 mg oral tablet (1 source) Opioid Agonist Start: 02-06-2020 take 1 tablet by mouth every four to six hours as needed Oxycodone Active 5 MG PO EVERY 4-6 HOURS 30 7 February 06, 2020 5 mg 1to2 tablets orally as needed Completed/Discontinued Medications Medication Drug Class(es) Dates Sig (Normalized) Sig (Original) acetaminophen 325 mg / oxyCODONE hydrochloride 5 mg oral tablet (1 source) Opioid Agonist Start: 01-20-2018 End: 02-02-2020 take 1 tablet by mouth every four to six hours Oxycodone-Acetami nophen (Percocet) 5-325 mg tablet Discontinued 1 TAB PO EVERY 4-6 HOURS January 20, 2018 February 02, 2020 1:51pm alendronic acid 70 mg oral tablet (7 sources) Bisphosphonate Start: 01-22-2023 take 1 tablet by mouth every week amLODIPine 10 mg / benazepril hydrochloride 20 mg oral capsule (2 sources) Dihydropyridine Calcium Channel Elvin, Angiotensin Converting Enzyme Inhibitor Start: 12-15-2017 End: 02-02-2020 take 1 capsule by mouth once daily Amlodipine-Benaze pril Discontinued 1 CAP PO Daily December 15, 2017 12:00am February 02, 2020 1:51pm Start: 12-14-2017 End: 12-15-2017 take 1 capsule by mouth once daily Amlodipine-Benazepril (Lotrel) 5-10 mg Capsule Discontinued 1 CAP PO Daily December 14, 2017 12:00am December 15, 2017 11:20am biotin 10 mg oral capsule (1 source) Start: 12-15-2017 End: 02-02-2020 take 59835 ug by mouth once daily Biotin Discontinued 07104 MCG PO Daily December 15, 2017 12:00am February 02, 2020 1:51pm C,E,Zinc,Copper 11-[id number] (Ocuvite Adult 50 Plus) 250-5-1 mg Capsule (1 source) Start: 12-14-2017 End: 02-02-2020 C,E,Zinc,Copper 97-[id number] (Ocuvite Adult 50 Plus) 250-5-1 mg Capsule Discontinued 250 MG PO Daily with breakfast December 14, 2017 12:00am February 02, 2020 1:51pm calcium carbonate 1500 mg oral tablet (1 source) Start: 12-15-2017 End: 02-02-2020 take 1 tablet by mouth once daily Calcium Carbonate (Calcium 600) 600 mg calcium (1,500 mg) Tablet Discontinued 600 MG PO Daily December 15, 2017 12:00am February 02, 2020 1:51pm cholecalciferol 0.01 mg oral tablet (1 source) Vitamin D Start: 12-15-2017 End: 02-02-2020 take 2 tablets by mouth once daily Cholecalciferol (Vitamin D3) (Vitamin D3) 400 unit Tablet Discontinued 800 UNIT PO Daily December 15, 2017 12:00am February 02, 2020 1:51pm potassium chloride 20 meq extended release oral tablet (8 sources) Start: 02-02-2020 take 1 tablet by mouth once daily potassium chloride 20 mEq ER Tab 20 mEq = 1 tab(s), Oral, Daily, Refills(s) 0, Prophylaxis Start Date: 01/22/23 Status: Ordered [place] Oil-Erie-3 Fatty Acids ([place] Oil-1000) 1,000-200 mg Capsule (1 source) Start: 12-15-2017 End: 02-02-2020 [place] Oil-[place]rie-3 Fatty Acids ([place] Oil-1000) 1,000-200 mg Capsule Discontinued 2000 MG PO Daily December 15, 2017 12:00am February 02, 2020 1:51pm Problems Active Problems Problem Classification Problem Date Documented Da te Episodic/Chronic Cancer of colon (5 sources) History of malignant neoplasm of colon; Translations: [Personal history of other malignant neoplasm of large intestine] Onset: 4 Episodic Cardiac dysrhythmias (12 sources) Unspecified atrial fibrillation; Translations: [Atrial fibrillation] Onset: 2 01-22-2023 Chronic Cardiac dysrhythmias (1 source) ECG: sinus bradycardia; Translations: [Bradycardia, unspecified] 08-18-2023 Episodic Congestive heart failure; nonhypertensive (10 sources) Unspecified diastolic (congestive) heart failure; Translations: [Congestive heart failure] Onset: 2 01-22-2023 Chronic Disorders of lipid metabolism (1 source) Hyperlipidemia, unspecified; Translations: [HYPERLIPIDEMIA UNSPECIFIED] Onset: 2 Chronic Essential hypertension (10 sources) Hypertensive disorder; Translations: [Essential (primary) hypertension] Onset: 2 01-22-2023 Chronic Fracture of neck of femur (hip) (2 sources) Intertrochanteric fracture; Translations: [Displaced intertrochanteric fracture of left femur, initial encounter for closed fracture] 08-18-2023 Episodic Fracture of upper limb (1 source) Fracture of humerus ; Translations: [Unspecified fracture of shaft of humerus, left arm, initial encounter for closed fracture] 08-18-2023 Episodic Heart valve disorders (7 sources) Aortic valve regurgitation 01-22-2023 Chronic Hypertension with complications and secondary hypertension (1 source) Hypertensive heart disease with heart failure; Translations: [HTN HEART DISEASE W/HEART FAIL] Onset: 2 Chronic Menopausal disorders (1 source) Other primary ovarian failure; Translations: [OTHER PRIMARY OVARIAN FAILURE] Onset: 2 Chronic Osteoporosis (8 sources) Age-related osteoporosis without current pathological fracture; Translations: [Osteoporosis] Onset: 2 01-22-2023 Chronic Other aftercare (1 source) Drug therapy finding; Translations: [terminal computer operator (current) use of anticoagulants] 08-18-2023 Episodic Other and ill-defined heart disease (1 source) Cardiomegaly; Translations: [CARDIOMEGALY] Onset: 2 Chronic Other and ill-defined heart disease (7 sources) Left atrial enlargement 01-22-2023 Chronic Other and ill-defined heart disease (7 sources) Left ventricular hypertrophy 01-22-2023 Chronic Other and ill-defined heart disease (2 sources) Takotsubo syndrome; 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] Onset: 2 Chronic Other and ill-defined heart disease (5 sources) Cardiomegaly 02-23-2024 Chronic Other and ill-defined heart disease (1 source) Takotsubo cardiomyopathy; 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] 08-18-2023 Chronic Other and unspecified benign neoplasm (4 sources) Benign neoplasm of colon; Translations: [Benign neoplasm of colon, unspecified] Onset: 3 Episodic Other and unspecified benign neoplasm (6 sources) Adenomatous polyp of colon 03-05-2023 Episodic Other and unspecified benign neoplasm (6 sources) History of polyp of colon; Translations: [Personal history of colonic polyps] Onset: 4 Episodic Other gastrointestinal disorders (1 source) Abnormal feces; Translations: [Other fecal abnormalities] Onset: 3 Episodic Other gastrointestinal disorders (7 sources) Occult blood in stools 02-02-2023 Episodic Other injuries and conditions due to external causes (1 source) Injury of head; Translations: [Unspecified injury of head, initial encounter] 08-18-2023 Episodic Other non-traumatic joint disorders (1 source) Pain in right knee; Translations: [Right knee pain] 08-18-2023 Episodic Other nutritional; endocrine; and metabolic disorders (7 sources) Body mass index 30+ - obesity 02-02-2023 Chronic Other nutritional; endocrine; and metabolic disorders (5 sources) Obesity caused by energy imbalance 02-23-2024 Chronic Other nutritional; endocrine; and metabolic disorders (1 source) Obese class I; Translations: [Body mass index (BMI) 32.0-32.9, adult] Onset: 5 Chronic Emelia-; endo-; and myocarditis; cardiomyopathy (except that caused by tuberculosis or sexually transmitted disease) (7 sources) Cardiomyopathy 01-22-2023 Chronic Residual codes; unclassified (7 sources) Edema of lower extremity 01-22-2023 Episodic Syncope (1 source) Vasovagal syncope; Translations: [Syncope and collapse] 08-18-2023 Episodic Thyroid disorders (8 sources) Hypothyroidism, unspecified; Translations: [Hypothyroidism] Onset: 2 01-22-2023 Chronic Past or Other Problems Problem [...] Test Name Value Interpretation Reference Range Facility Gastroenterology Office/Clin ic Noteon 09-28-2024 Gastroenterology Office/Clinic Note Gastroenterology Office/Clinic Note Chief Complaint Colonoscopy results HPI Staff [...] Recorded pneumococcal 23-valent vaccine 06/29/2016 Recorded influenza, unspec (more content not included)... [facility] Comment on above: Result Comment: Elec tronically Signed By: Rut AHMADI, Harmony Jay\.br\Date and Time Signed: 09/28/24 09:23 EST Reminderson 09-26-2024 Reminders Reminders From: Uyen Carnes To: [facility] - Reminders/Recalls; Sent: 09/26/2024 12:44:45 EST Show [...] COLON, POLYPECTOMY: HYPERPLASTIC COLONIC GLANDULAR MUCOSAL POLYP [facility] Surgical Pathology Reporton 09-15-2024 Surgical Pathology Report [address] [place] [address]- Surgical Pathology Report Collected Date/Time: 09/13/2024 11:37 EST Pathologist: Christopher Delarosa MD Date/Time: 09/13/2024 13:54 EST Rut AHMADI, Harmony [...] is entirely submitted in one cassette. (DC) DC:[facility] Microscopic Description Microscopic examination performed unless gross only specified. [facility] Comment on above: Performed By: #### [id number] #### [facility] [address] [place] [address] Main OR Intraoperative Recor don 09-14-2024 Main OR Intraoperative Record Main OR Intraoperative Record IntraOp Document Type FT Summary Primary Physician: Harmony Bettencourt MD Finalized Date/Time: 09/14/24 14:42:48 Pt. Name: NEREIDA AGOSTO/Sex: 1940 Female Med Rec #: [id number] Physician: Harmony Bettencourt MD Financial #: [id number] Pt. Type: O Room/Bed: / Admit/Disch: 09/13/24 09:11:07 - 09/13/24 23:59:59 Institution: Case Times FT Entry 1 Patient Times In Room 09/13/24 11:15:00 Out Room 09/13/24 11:42:00 Procedure Times Start 09/13/24 11:22:00 Stop 09/13/24 11:39:00 Anesthesia Times Start 09/13/24 11:15:00 Stop 09/13/24 11:42:00 Time at [facility] 09/13/24 11:24:00 Last Modified By: Shawn Barrera RN 09/13/24 11:54:00 General Comments: 09/14/24 Chart opened to review and send charges LRoth CSFA Case Attendance FT Entry 1 Entry 2 Entry 3 Case Attendee Hien MEREDITH, Freddie Bettencourt MD, Harmony Barrera RN, Shawn Llanos Role Performed Anesthesiologist Surgeon - Primary Aircraft Part Assembler - Primary Director Of Corporate Communications Time In 09/13/24 11:15:00 09/13/24 11:15:00 09/13/24 11:15:00 Time Out 09/13/24 11:42:00 09/13/24 11:42:00 09/13/24 11:42:00 Procedure COLONOSCOPY(.) COLONOSCOPY(.) COLONOSCOPY(.) Comments Dr. Whalen supervising case Last Modified By: Bruce BOWER, Shawn Barrera RN, Shawn Medina RN 09/13/24 11:54:01 09/13/24 11:54:01 09/13/24 11:54:01 Entry 4 Entry 5 Case Attendee Eliezer BAIG, Reymundo Bradshaw Role Performed Scrub - Primary Staff - Other Time In 09/13/24 11:15:00 09/13/24 11:28:00 Time Out 09/13/24 11:42:00 09/13/24 11:42:00 Procedure COLONOSCOPY(.) COLONOSCOPY(.) Comments help in room Last Modified By: Bruce BOWER, Shawn Medina RN 09/13/24 11:54:01 09/13/24 11:54:01 Perioperative Protocols FT [...] positioning, verifies presence of prosthetics or corrective devic (more content not included)... [facility] Discharge Instructionson Discharge Instructions Discharge Instructions NEREIDA AGOSTO :1940 Visit Date:09/13/2024 [...] AM EST With: Harmony Bettencourt MD Where: [facility] [address] [address]- New Follow Up Appointments after Discharge Follow Up with Harmony Bettencourt MD, [facility], [facility] When: Comments: -Office to call for pathology results. Call for any problems. [phone] Where: [address], [address] [place] [address] [phone] Business (1) Medications What How Much When [...] of blood in your stool or on th (more content not included)... [facility] Comment on above: Result Comment: Elec tronically Signed By: Celio BOWER, Renetta Aquino\.br\Date and Time Signed: 09/13/24 12:22 EST H&P Updateon 09-13-2024 H&P Update H&P Update Patient: NEREIDA AGOSTO Age: 84 [...] and Plan Diagnosis: Recurrent cecal polyp colonoscopy [facility] Main OR PACU I Recordon Main OR PACU I Record Main OR PACU I Rec ord PACU Phase I Document Type FT Summary Primary Physician: Harmony Bettencourt MD Finalized Date/Time: 09/13/24 13:11:22 Pt. Name: NEREIDA AGOSTO Caryn Oconnor./Sex: 1940 Female Med Rec #: [id number] Physician: Harmony Bettencourt MD Financial #: [id number] Pt. Type: O Room/Bed: / Admit/Disch: 09/13/24 [...] I Outcomes Met? Yes Last Modified By: Celio BOWER, Renetta Aquino 09/13/24 13:11:12 Post-Care Text: The patient demonstrates [...] Signed By: Renetta Pickens RN 09/13/24 13:11 [facility] Main OR Preoperative Recordo n 09-13-2024 Main OR Preoperative Record Main OR Preoperative Record Holding Area Document Type FT Summary Primary Physician: Harmony Bettencourt MD Finalized Date/Time: 09/13/24 09:36:21 Pt. Name: SURENDRANEREIDA/Sex: 1940 Female Med Rec #: [id number] Physician: Harmony Bettencourt MD Financial #: [id number] Pt. Type: O Room/Bed: / Admit/Disch: 09/13/24 [...] No Patient states Yes Comment - [facility] Supervision supervision available Case Cancelled in No Holding Area see comments below for reason Last Modified By: Shawn Barrera RN 09/13/24 09:36:19 General Comments: pt finished bowel prep at 0730, per patient nothing to eat or drink since MSRN Finalized By: Shawn Barrera RN Document Signatures Signed By: Shawn Barrera RN 09/13/24 09:36 [facility] Operative Reporton Operative Report Operative Report Patient: NEREIDA AGOSTO Age: 84 years Sex: Female : 1940 Associated Diagnoses: None Author: Harmony Bettencourt MD Pre-Procedure Procedure Date 09/13/2024 11:43:00 . Procedure Type: Colonoscopy with removal of tumor(s), polyp(s), or other lesion(s) by cold snare technique, endoscopic mucosal resection. Procedure provider Performed by Harmony Bettencourt MD. Current history and physical Documented on chart. Colonoscopy ([id number]) on 04/26/2024 at 84 Years. Colonoscopy ([id number]) on 02/24/2023 at 82 Years. Tubal ligation (052403596). Closed fracture of hip (354586405). Cardiac fluoroscopy (247173663).. Past Medical History No active or resolved past medical history items have been selected or recorded.. Family History Asthma Mother Renal cell carcinoma Brother . Procedure History Colonoscopy ([id number]) on 04/26/2024 at 84 Years. Colonoscopy ([id number]) on 02/24/2023 at 82 Years. Tubal ligation (011511736). Closed fracture of hip (140011790). Cardiac fluoroscopy (723812096).. Colorectal neoplasm risk assessment High risk Previous [...] 1 tab(s), Oral, Daily, Refills(s) 0, Prophylaxis Anticoagulant/antipla telet None. ASA Classification: Class III. . Monitoring: [...] 5. Normal terminal ileum Images Procedure images: Rec1_hd_video__[id number].jpg Rec1_hd_video__[id number].jpg Rec1_hd_video__48_26_[id number].jpg Rec1_hd_video__47_[id number].jpg Rec1_hd_video_ _[id number].jpg Rec1_hd_video_T1_[id number].jpg Rec1_hd_video_T1_45_13_[id number].jpg Rec1_hd_video__[id number].jpg Rec1_hd_video_T1_40_[id number]_010.jpg Rec1_hd_video_T1_39_[id number]_195.jpg Rec1_hd_video_T1_39_[id number].jpg Rec1_hd_video_T1_38_25_772.jpg Rec1_hd_video_2024_ _[id number].jpg . Post-Procedure Complications: none. Estimated blood loss: Minimal. Specimens: sent to pathology. De (more content not included)... [facility] Comment on above: Result Comment: Elec tronically Signed By: Rut AHMADI, Harmony Jay\.br\Date and Time Signed: 09/13/24 11:47 EST Other Comment: Erin martinez Attachment - attachment storage system not supported [id number] Can be viewed in source systemMissing Attachment - attachment storage system not supported [id number] Can be viewed in source systemMissing Attachment - attachment storage system not supported [id number] Can be viewed in source systemMissing Attachment - attachment storage system not supported [id number] Can be viewed in source systemMissing Attachment - attachment storage system not supported [id number] Can be viewed in source systemMissing Attachment - attachment storage system not supported [id number] Can be viewed in source systemMissing Attachment - attachment storage system not supported [id number] Can be viewed in source systemMissing Attachment - attachment storage system not supported [id number] Can be viewed in source systemMissing Attachment - attachment storage system not supported [id number] Can be viewed in source systemMissing Attachment - attachment storage system not supported [id number] Can be viewed in source systemMissing Attachment - attachment storage system not supported [id number] Can be viewed in source systemMissing Attachment - attachment storage system not supported [id number] Can be viewed in source systemMissing Attachment - attachment storage system not supported [id number] Can be viewed in source system Ambulatory Visit Summaryon 1 Ambulatory Visit Summary Ambulatory Visit Summary DAIN AGOSTOPITA Rubin :1940 Visit Date:06/08/2024 Ambulatory Visit Instructions Your Diagnosis Tubulovillous adenoma of colon History of colon cancer Your Care Team Attending Physician - Harmony Bettencourt MD Primary Care Physician - Jacinto Servin [...] Follow-Up Appointments Wednesday 12:15 PM EST With: Rut AHMADI, Harmony Jay Where: [facility] [address] [place] [address]- Medications What How Much When Instructions Unchanged [...] you for choosing us for your care. Normal [facility] Gastroenterology Office/Clin ic Noteon 06-08-2024 Gastroenterology Office/Clinic Note Gastroenterology Office/Clinic Note Chief Complaint dr swan ref for [...] 06/29/2016 Recorded influenza, unspecified formulation 06/29/2016 Recorded Normal [facility] Comment on above: Result Comment: Elec tronically Signed By: Rut AHMADI, Harmony Jay\.br\Date and Time Signed: 06/08/24 10:25 EDT General Surgery Office/Clini c Noteon 05-10-2024 General Surgery Office/Clinic Note General Surgery Office/Clinic Note Chief Complaint colonoscopy [...] E&M of Est. Patient Low 20-29 Min [id number] [facility] Internal Ambulatory Referral Follow-up No qualifying data [...] (COVID-19) mRNA-1273 vaccine 10/18/2020 Recorded Normal [facility] Comment on above: Result Comment: Elec tronically Signed By: ALVARO AHMADI, Rashi Lee\.br\Date and Time Signed: 05/10/24 13:55 EDT Pathology Request for Lab Co rpon 04-26-2024 Pathology Request for Lab Sherley [facility] Comment on above: Order Comment: PATHO LOGY GI SPECIMEN Result Comment: See report. Scanned copy available in EMR. PERFORMED BY: [place] [address] PATHOLOGIST CHILD CARE DIRECTOR JAVIER GOODE M.D. Performed By: #### P ATH TO [facility] #### [address] Ambulatory Visit Summaryon 0 03-15-2024 Ambulatory Visit Summary Ambulatory Visit Summary XIANGDenisNEREIDA :1940 Visit Date:03/15/2024 Ambulatory Visit Instructions Your Diagnosis Personal history of colonic polyps Your Care Team Attending Physician - Rashi SWAN MD Primary Care Physician - Jacinto Servin [...] Family Hist (more content not included)... [facility] Comment on above: Result Comment: Elec tronically Signed By: ALVARO AHMADI, Rashi Weaver\Date and Time Signed: 03/15/24 14:08 EDT Office Visiton 02-07-2024 Follow-up visit [id number] Nereida Agosto 1940 F Date Provider Department Center 02/07/2024 Theresa-GOLDIE VAUGHAN KIM Cook Family History Problem Relation Age of Onset No Known Problems Mother No Known Problems Father Family Status - Relation Status Age at Mother Father Level of Service:76047 NE OFFICE/OUTPATIENT ESTABLISHED LOW MDM 20 MIN [facility] Office Visiton 10-28-2023 Follow-up visit [id number] Nereida Agosto 1940 F Date Provider Department Center 10/28/2023 Yu-KHANG LORENZO KIM [facility] Family History Problem Relation Age of Onset No Known Problems Mother No Known Problems Father Family Status - Relation Status Age at Mother Father Level of Service:66537 NE OFFICE/OUTPATIENT ESTABLISHED MOD MDM 30 MIN Reason for Visit and Comments: Congestive Heart Failure [127] Dizziness [759432] Normal [facility] Office Visiton 08-05-2023 Follow-up visit [id number] Nereida Agosto 1940 F Date Provider Department Center 08/05/2023 [id number]-RYKNBRQNNMALIA BALLARD KIM [facility] Family History Problem Relation Age of Onset No Known Problems Mother No Known Problems Father Family Status - Relation Status Age at Mother Father Level of Service:09116 NE OFFICE/OUTPATIENT ESTABLISHED MOD MDM 30-39 MIN Normal [facility] Office Visiton 02-19-2023 Follow-up visit [id number] Nereida Agosto 1940 F Date Provider Department Center 02/19/2023 [id number] BALLARD CARD [facility] Family History Problem Relation Age of Onset No Known Problems Mother No Known Problems Father Family Status - Relation Status Age at Mother Father Level of Service:01553 NE OFFICE/OUTPATIENT ESTABLISHED MOD MDM 30-39 MIN Reason for Visit and Comments: Follow-up [995623] - Pt is here for sx clearance scheduled for echo 02/17 Normal [facility] OCC BLD IMMUNO SCREENon 01-04 OCCULT BLOOD Positive Abnormal NEGATIVE [facility] Comment on above: Performed By: #### O BSCRN #### [facility] [address] [place] [address] Dr. Dinah Rodriges CBC AUTO DIFFon 01-18-2023 BASO # 0.0 103/ul Normal 0.0-0.1 [facility] Comment on above: Performed By: #### C BC #### [facility] [address] [place] [address] Dr. Dinah Rodriges Basophils/100 WBC (Bld) 0.6 % Normal 0.2-2.0 [facility] Comment on above: Performed By: #### C BC #### [facility] [address] [place] [address] Dr. Dinah Rodriges EO # 0.1 103/ul Normal 0.0-0.7 [facility] Comment on above: Performed By: #### C BC #### [facility] [address] [place] [address] Dr. Dinah Rodriges Eosinophils/100 WBC (Bld) 1.8 % Normal 0.9-7.0 [facility] Comment on above: Performed By: #### C BC #### [facility] [address] [place] [address] Dr. Dinah Rodriges Erythrocyte distribution width (RBC) [Ratio] 12.7 % Normal 11.0-15.0 [facility] Comment on above: Performed By: #### C BC #### [facility] [address] [place] [address] Dr. Dinah Rodriges Hematocrit (Bld) [Volume fraction] 39.7 % Normal 36.0-48.0 [facility] Comment on above: Performed By: #### C BC #### [facility] [address] [place] [address] Dr. Dinah Rodriges Hemoglobin (Bld) [Mass/Vol] 12.6 g/dL Normal 12.0-16.0 [facility] Comment on above: Performed By: #### C BC #### [facility] [address] [place] [address] Dr. Dinah Rodriges IG # 0.01 10e3/ul Normal 0.00-0.03 [facility] Comment on above: Performed By: #### C BC #### [facility] [address] [place] [address] Dr. Dinah Rodriges IG % 0.2 % Normal 0.0-0.5 [facility] Comment on above: Performed By: #### C BC #### [facility] [address] [place] [address] Dr. Dinah Rodriges LYMPH # 1.5 103/ul Normal 1.2-3.8 [facility] Comment on above: Performed By: #### C BC #### [facility] [address] [place] [address] Dr. Dinah Rodriges Lymphocytes/100 WBC (Bld) 28.7 % Normal 20.5-60.0 [facility] Comment on above: Performed By: #### C BC #### [facility] [address] [place] [address] Dr. Dinah Rodriges MANUAL DIFF REQ NO Normal [facility] Comment on above: Performed By: #### C BC #### [facility] [address] [place] [address] Dr. Dinah Rodriges MCH (RBC) [Entitic mass] 30.7 pg Normal 26.7-34.0 [facility] Comment on above: Performed By: #### C BC #### [facility] [address] [place] [address] Dr. Dinah Rodriges MCHC (RBC) [Mass/Vol] 31.7 g/dL Normal 29.9-35.2 [facility] Comment on above: Performed By: #### C BC #### [facility] [address] [address] [address] Dinah Rodriges MCV (RBC) [Entitic vol] 96.8 fL Normal 81.0-99.0 [facility] Comment on above: Performed By: #### C BC #### [facility] [address] [address] [address] Dinah Rodriges MONO # 0.4 103/ul Normal 0.3-0.8 [facility] Comment on above: Performed By: #### C BC #### [facility] [address] [address] [address] Dinah Rodriges Monocytes/100 WBC (Bld) 7.3 % Normal 1.7-12.0 [facility] Comment on above: Performed By: #### C BC #### [facility] [address] [place] [address] Dr. Dinah Rodriges NEUT # 3.1 103/ul Normal 1.4-6.5 [facility] Comment on above: Performed By: #### C BC #### [facility] [address] [place] [address] Dr. Dinah Rodriges Neutrophils/100 WBC (Bld) 61.4 % Normal 43.0-75.0 [facility] Comment on above: Performed By: #### C BC #### [facility] [address] [address] [address] Dinah Rodriges Platelet mean volume (Bld) [Entitic vol] 9.7 fL Normal 9.5-13.5 [facility] Comment on above: Performed By: #### C BC #### [facility] [address] [address] [address] Dinah Rodriges PLT 163 103/ul Normal 150-450 [facility] Comment on above: Performed By: #### C BC #### [facility] [address] [address] [address] Dinah Rodriges RBC 4.10 106/ul Critically low 4.20-5.40 [facility] Comment on above: Performed By: #### C BC #### [facility] [address] [address] [address] Dinah Rodriges WBC 5.1 103/ul Normal 4.0-11.0 [facility] Comment on above: Performed By: #### C BC #### [facility] [address] [address] [address] Dinah Rodriges FREE T3on 01-18-2023 FREE T3 2.11 pg/mlL Critically low 2.18-3.98 [facility] Comment on above: Performed By: #### C MP, TSH, T4, LIPID, FT3 #### [facility] [address] [address] [address] Dinah Rodriges GLYCOHEMOGLOBIN A1Con 2022 ADA RECOMMENDATION SEE BELOW Normal [facility] Comment on above: Result Comment: ADA RECOMMENDED LIMIT 4.0 - 6.0 ADA THERAPEUTIC TARGET < 7.0 ACTION SUGGESTED > 7.0 Performed By: #### A 1C ####[facility] [address] [address]Dr. Dinah Rodriges Glucose [Mass/Vol] 105 mg/dL Normal [facility] Comment on above: Performed By: #### A 1C ####[facility] [address] [address]Dr. Dinah Rodriges HbA1c (Bld) [Mass fraction] 5.3 % Normal 4.5-6.2 [facility] Comment on above: Performed By: #### A 1C ####[facility] [address] [address]Dr. Dinah Rodriges LIPID PROFILEon 01-18-2023 CHOL-HDL RATIO NORM SEE BELOW Normal [facility] Comment on above: Result Comment: 3.3 - 4.4 LOW RISK 4.4 - 7.1 AVERAGE RISK 7.1 - 11.0 MODERATE RISK >11.0 HIGH RISK Performed By: #### C MP, TSH, T4, LIPID, FT3 #### [facility] [address] [address] [address] Dinah Rodriges Cholesterol [Mass/Vol] 168 mg/dL Normal <=200 [facility] Comment on above: Performed By: #### C MP, TSH, T4, LIPID, FT3 #### [facility] [address] [address] [address] Dinah Rodriges Cholesterol in HDL [Mass/Vol] 61 mg/dL Critically high 40-60 [facility] Comment on above: Performed By: #### C MP, TSH, T4, LIPID, FT3 #### [facility] [address] [address] [address] Dinah Rodriges Cholesterol in LDL [Mass/Vol] 94.0 mg/dL Normal [facility] Comment on above: Performed By: #### C MP, TSH, T4, LIPID, FT3 #### [facility] [address] [place] [address] Dr. Dinah Rodriges Cholesterol.total/Cho lesterol in HDL [Mass ratio] 2.8 {ratio} Normal [facility] Comment on above: Performed By: #### C MP, TSH, T4, LIPID, FT3 #### [facility] [address] [place] [address] Dr. Dinah Rodriges HDL NORMAL > or = 60 mg/dl - LO W CARDIOVASCULAR RISK <40 mg/dl - HIGH CARDIOVASCULAR RISK Normal [facility] Comment on above: Performed By: #### C MP, TSH, T4, LIPID, FT3 #### [facility] [address] [place] [address] Dr. Dinah Rodriges LDL CALC NORMAL SEE BELOW Normal [facility] Comment on above: Result Comment: <100 mg/dl OPTIMAL 100 - 129 mg/dl NEAR OR ABOVE OPTIMAL 130 - 159 mg/dl BORDERLINE HIGH 160 - 189 mg/dl HIGH >190 mg/dl VERY HIGH Performed By: #### C MP, TSH, T4, LIPID, FT3 #### [facility] [address] [place] [address] Dr. Dinah Rodriges Triglyceride [Mass/Vol] 65 mg/dL Normal <=150 [facility] Comment on above: Performed By: #### C MP, TSH, T4, LIPID, FT3 #### [facility] [address] [place] [address] Dr. Dinah Rodriges VLDL CALC 13.0 mg/dL Normal [facility] Comment on above: Performed By: #### C MP, TSH, T4, LIPID, FT3 #### [facility] [address] [address] [address] Dinah Rodriges PROF 14(COMP METB)on 023 Albumin [Mass/Vol] 3.4 g/dL Normal 3.4-5.0 [facility] Comment on above: Performed By: #### C MP, TSH, T4, LIPID, FT3 #### [facility] [address] [address] [address] Dinah Rodriges Albumin/Globulin [Mass ratio] 1.0 {ratio} Normal [facility] Comment on above: Performed By: #### C MP, TSH, T4, LIPID, FT3 #### [facility] [address] [place] [address] Dr. iDnah Rodriges ALP [Catalytic activity/Vol] 59 U/L Normal 46-116 [facility] Comment on above: Performed By: #### C MP, TSH, T4, LIPID, FT3 #### [facility] [address] [address] [address] Dinah Rodriges ALT [Catalytic activity/Vol] 13 U/L Critically low 14-59 [facility] Comment on above: Performed By: #### C MP, TSH, T4, LIPID, FT3 #### [facility] [address] [address] [address] Dinah Rodriges Anion gap [Moles/Vol] 10.7 mmol/L Normal [facility] Comment on above: Performed By: #### C MP, TSH, T4, LIPID, FT3 #### [facility] [address] [address] [address] Dinah Rodriges AST [Catalytic activity/Vol] 14 U/L Critically low 15-37 [facility] Comment on above: Performed By: #### C MP, TSH, T4, LIPID, FT3 #### [facility] [address] [address] [address] Dinah Rodriges Bilirubin [Mass/Vol] 0.3 mg/dL Normal 0.2-1.0 [facility] Comment on above: Performed By: #### C MP, TSH, T4, LIPID, FT3 #### [facility] [address] [place] [address] Dr. Dinah Rodriges Calcium [Mass/Vol] 9.4 mg/dL Normal 8.5-10.1 [facility] Comment on above: Performed By: #### C MP, TSH, T4, LIPID, FT3 #### [facility] [address] [place] [address] Dr. Dinah Rodriges Chloride [Moles/Vol] 106 mmol/L Normal 98-107 [facility] Comment on above: Performed By: #### C MP, TSH, T4, LIPID, FT3 #### [facility] [address] [place] [address] Dr. Dinah Rodriges CO2 [Moles/Vol] 31.9 mmol/L Normal 21.0-32.0 [facility] Comment on above: Performed By: #### C MP, TSH, T4, LIPID, FT3 #### [facility] [address] [place] [address] Dr. Dinah Rodriges Creatinine [Mass/Vol] 0.95 mg/dL Normal 0.55-1.02 [facility] Comment on above: Performed By: #### C MP, TSH, T4, LIPID, FT3 #### [facility] [address] [place] [address] Dr. Dinah Rodriges EGFR-AF STATELESS >60 Normal >=60 [facility] Comment on above: Performed By: #### C MP, TSH, T4, LIPID, FT3 #### [facility] [address] [place] [address] Dr. Dinah Rodriges EGFR-NON AF STATELESS 57 mL/min/1.73m2 Critically low >=60 [facility] Comment on above: Performed By: #### C MP, TSH, T4, LIPID, FT3 #### [facility] [address] [place] [address] Dr. Dinah Rodriges Globulin (S) [Mass/Vol] 3.4 g/dL Normal [facility] Comment on above: Performed By: #### C MP, TSH, T4, LIPID, FT3 #### [facility] [address] [address] [address] Dinah Rodriges Glucose [Mass/Vol] 88 mg/dL Normal 74-106 [facility] Comment on above: Performed By: #### C MP, TSH, T4, LIPID, FT3 #### [facility] [address] [address] [address] Dinah Rodriges Potassium [Moles/Vol] 4.6 mmol/L Normal 3.5-5.1 [facility] Comment on above: Performed By: #### C MP, TSH, T4, LIPID, FT3 #### [facility] [address] [place] [address] Dr. Dinah Rodriges Protein [Mass/Vol] 6.8 g/dL Normal 6.4-8.2 [facility] Comment on above: Performed By: #### C MP, TSH, T4, LIPID, FT3 #### [facility] [address] [place] [address] Dr. Dinah Rodriges Sodium [Moles/Vol] 144 mmol/L Normal 136-145 [facility] Comment on above: Performed By: #### C MP, TSH, T4, LIPID, FT3 #### [facility] [address] [place] [address] Dr. Dinah Rodriges Urea nitrogen [Mass/Vol] 18.0 mg/dL Normal 7.0-18.0 [facility] Comment on above: Performed By: #### C MP, TSH, T4, LIPID, FT3 #### [facility] [address] [place] [address] Dr. Dinah Rodriges Urea nitrogen/Creatinine [Mass ratio] 18.9 mg/mg Normal [facility] Comment on above: Performed By: #### C MP, TSH, T4, LIPID, FT3 #### [facility] [address] [place] [address] Dr. Dinah Rodriges T4on 01-18-2023 T4 [Mass/Vol] 9.30 ug/dL Normal 4.80-13.90 [facility] Comment on above: Performed By: #### C MP, TSH, T4, LIPID, FT3 #### [facility] [address] [address] [address] Dinah Rodriges TSHon 01-18-2023 TSH 0.872 uIU/mL Normal 0.358-3.[address] [facility] Comment on above: Performed By: #### C MP, TSH, T4, LIPID, FT3 #### [facility] [address] [address] [address] Dinah Rodriges BNPon 01-20-2022 Natriuretic peptide B (Bld) [Mass/Vol] 464.0 pg/mL Normal <=1,800.0 [facility] Comment on above: Performed By: #### T SH, BNP, T7, LIPID, CMP ####[facility] [address] [address]Dr. Dinah Rodriges CBC AUTO DIFFon 01-20-2022 BASO # 0.0 103/ul Normal 0.0-0.1 [facility] Comment on above: Performed By: #### C BC #### [facility] [address] [address] [address] Dinah Rodriges Basophils/100 WBC (Bld) 0.4 % Normal 0.2-2.0 [facility] Comment on above: Performed By: #### C BC #### [facility] [address] [place] [address] Dr. Dinah Rodriges EO # 0.1 103/ul Normal 0.0-0.7 [facility] Comment on above: Performed By: #### C BC #### [facility] [address] [address] [address] Dinah Rodriges Eosinophils/100 WBC (Bld) 1.9 % Normal 0.9-7.0 [facility] Comment on above: Performed By: #### C BC #### [facility] [address] [place] [address] Dr. Dinah Rodriges Erythrocyte distribution width (RBC) [Ratio] 12.7 % Normal 11.0-15.0 [facility] Comment on above: Performed By: #### C BC #### [facility] [address] [place] [address] Dr. Dinah Rodriges Hematocrit (Bld) [Volume fraction] 35.0 % Critically low 36.0-48.0 [facility] Comment on above: Performed By: #### C BC #### [facility] [address] [place] [address] Dr. Dinah Rodriges Hemoglobin (Bld) [Mass/Vol] 11.5 g/dL Critically low 12.0-16.0 [facility] Comment on above: Performed By: #### C BC #### [facility] [address] [place] [address] Dr. Dinah Rodriges IG # 0.01 10e3/ul Normal 0.00-0.03 [facility] Comment on above: Performed By: #### C BC #### [facility] [address] [place] [address] Dr. Dinah Rodriges IG % 0.2 % Normal 0.0-0.5 [facility] Comment on above: Performed By: #### C BC #### [facility] [address] [place] [address] Dr. Dinah Rodriges LYMPH # 1.4 103/ul Normal 1.2-3.8 [facility] Comment on above: Performed By: #### C BC #### [facility] [address] [place] [address] Dr. Dinah Rodriges Lymphocytes/100 WBC (Bld) 26.9 % Normal 20.5-60.0 [facility] Comment on above: Performed By: #### C BC #### [facility] [address] [place] [address] Dr. Dinah Rodriges MANUAL DIFF REQ NO Normal [facility] Comment on above: Performed By: #### C BC #### [facility] [address] [place] [address] Dr. Dinah Rodriges MCH (RBC) [Entitic mass] 33.0 pg Normal 26.7-34.0 [facility] Comment on above: Performed By: #### C BC #### [facility] [address] [address] [address] Dinah Rodriges MCHC (RBC) [Mass/Vol] 32.9 g/dL Normal 29.9-35.2 [facility] Comment on above: Performed By: #### C BC #### [facility] [address] [address] [address] Dinah Rodriges MCV (RBC) [Entitic vol] 100.3 fL Critically high 81.0-99.0 [facility] Comment on above: Performed By: #### C BC #### [facility] [address] [address] [address] Dinah Rodriges MONO # 0.4 103/ul Normal 0.3-0.8 [facility] Comment on above: Performed By: #### C BC #### [facility] [address] [place] [address] Dr. Dinah Rodriges Monocytes/100 WBC (Bld) 7.6 % Normal 1.7-12.0 [facility] Comment on above: Performed By: #### C BC #### [facility] [address] [place] [address] Dr. Dinah Rodriges NEUT # 3.3 103/ul Normal 1.4-6.5 [facility] Comment on above: Performed By: #### C BC #### [facility] [address] [place] [address] Dr. Dinah Rodriges Neutrophils/100 WBC (Bld) 63.0 % Normal 43.0-75.0 [facility] Comment on above: Performed By: #### C BC #### [facility] [address] [place] [address] Dr. Dinah Rodriges Platelet mean volume (Bld) [Entitic vol] 10.0 fL Normal 9.5-13.5 [facility] Comment on above: Performed By: #### C BC #### [facility] [address] [place] [address] Dr. Dinah Rodriges PLT 165 103/ul Normal 150-450 [facility] Comment on above: Performed By: #### C BC #### [facility] [address] [address] [address] Dinah Rodriges RBC 3.49 106/ul Critically low 4.20-5.40 [facility] Comment on above: Performed By: #### C BC #### [facility] [address] [address] [address] Dinah Rodriges WBC 5.3 103/ul Normal 4.0-11.0 [facility] Comment on above: Performed By: #### C BC #### [facility] [address] [address] [address] Dinah Rodriges FREE THYROXINE INDEX T7on FTI 3.37 Normal 1.30-4.50 [facility] Comment on above: Performed By: #### T SH, BNP, T7, LIPID, CMP ####[facility] [id number] Rodriges T3U 34.0 % Normal 30.0-39.0 [facility] Comment on above: Performed By: #### T SH, BNP, T7, LIPID, CMP ####[facility] [id number] [id number] Rodriges T4 [Mass/Vol] 9.90 ug/dL Normal 4.80-13.90 [facility] Comment on above: Performed By: #### T SH, BNP, T7, LIPID, CMP ####[facility] [address] [id number] Rodriges GLYCOHEMOGLOBIN A1Con 2021 ADA RECOMMENDATION SEE BELOW Normal [facility] Comment on above: Result Comment: ADA RECOMMENDED LIMIT 4.0 - 6.0 ADA THERAPEUTIC TARGET < 7.0 ACTION SUGGESTED > 7.0 Performed By: #### A 1C ####[facility] [address] [address]Dr. Dinah Rodriges Glucose [Mass/Vol] 103 mg/dL Normal [facility] Comment on above: Performed By: #### A 1C ####[facility] [address] [address]DrSimran Rodriges HbA1c (Bld) [Mass fraction] 5.2 % Normal 4.5-6.2 [facility] Comment on above: Performed By: #### A 1C ####[facility] [address] [address]Dr. Dinah Rodriges IRONon 01-20-2022 Iron [Mass/Vol] 79.0 ug/dL Normal 50.0-170.0 [facility] Comment on above: Performed By: #### I KINZA ####[facility] [address] [address]Dr. Dinah Rodriges LIPID PROFILEon 01-20-2022 CHOL-HDL RATIO NORM SEE BELOW Normal [facility] Comment on above: Result Comment: 3.3 - 4.4 LOW RISK 4.4 - 7.1 AVERAGE RISK 7.1 - 11.0 MODERATE RISK >11.0 HIGH RISK Performed By: #### T SH, BNP, T7, LIPID, CMP ####[facility] [address] [address]Dr. Dinah Rodriges Cholesterol [Mass/Vol] 153 mg/dL Normal <=200 [facility] Comment on above: Performed By: #### T SH, BNP, T7, LIPID, CMP ####[facility] [address] [address]Dr. Dinah Rodriges Cholesterol in HDL [Mass/Vol] 54 mg/dL Normal 40-60 [facility] Comment on above: Performed By: #### T SH, BNP, T7, LIPID, CMP ####[facility] [address] [place] [address]Dr. Dinah Rodriges Cholesterol in LDL [Mass/Vol] 78.8 mg/dL Normal [facility] Comment on above: Performed By: #### T SH, BNP, T7, LIPID, CMP ####[facility] [address] [place] [address]Dr. Dinah Rodriges Cholesterol.total/Cho lesterol in HDL [Mass ratio] 2.8 {ratio} Normal [facility] Comment on above: Performed By: #### T SH, BNP, T7, LIPID, CMP ####[facility] [address] [place] [address]Dr. Dinah Rodriges HDL NORMAL > or = 60 mg/dl - LO W CARDIOVASCULAR RISK <40 mg/dl - HIGH CARDIOVASCULAR RISK Normal [facility] Comment on above: Performed By: #### T SH, BNP, T7, LIPID, CMP ####[facility] [address] [place] [address]Dr. Dinah Rodriges LDL CALC NORMAL SEE BELOW Normal The [facility] Comment on above: Result Comment: <100 mg/dl OPTIMAL 100 - 129 mg/dl NEAR OR ABOVE OPTIMAL 130 - 159 mg/dl BORDERLINE HIGH 160 - 189 mg/dl HIGH >190 mg/dl VERY HIGH Performed By: #### T SH, BNP, T7, LIPID, CMP ####[facility] [address] [place] [address]Dr. Dinah Rodriges Triglyceride [Mass/Vol] 101 mg/dL Normal <=150 [facility] Comment on above: Performed By: #### T SH, BNP, T7, LIPID, CMP ####[facility] [address] [place] [address]Dr. Dinah Rodriges VLDL CALC 20.2 mg/dL Normal [facility] Comment on above: Performed By: #### T SH, BNP, T7, LIPID, CMP ####[facility] [address] [place] [address]Dr. Dinah Rodriges MG MAMM SCREEN 3D TENZIN CADon 01-20-2022 MG MAMM SCREEN 3D TENZIN CAD Patient: NEREIDA AGOSTO Exam Date: 01/20/2022 : 1940 Gender:F Ordering : DR JACINTO SERVIN . Admission #: [id number] Family : Order #: [id number] CLICK HERE TO VIEW EXAM RADIOLOGY REPORT [...] Treatments None Family Cancers None LOCATION: [facility] BREAST COMPOSITION: Scattered areas fibroglandular density. [...] MD on 01/20/2022 at 11:33 Normal [facility] PROF 14(COMP METB)on 022 Albumin [Mass/Vol] 3.3 g/dL Critically low 3.4-5.0 Th [facility] Comment on above: Performed By: #### T SH, BNP, T7, LIPID, CMP ####[facility] [address] [place], [place] [address]Dr. Dinah Rodriges Albumin/Globulin [Mass ratio] 1.0 {ratio} Normal [facility] Comment on above: Performed By: #### T SH, BNP, T7, LIPID, CMP ####[facility] [address] [place] [address]Dr. Dinah Rodriges ALP [Catalytic activity/Vol] 69 U/L Normal 46-116 [facility] Comment on above: Performed By: #### T SH, BNP, T7, LIPID, CMP ####[facility] [address] [place] [address]Dr. Dinah Rodriges ALT [Catalytic activity/Vol] 6 U/L Critically low 14-59 [facility] Comment on above: Performed By: #### T SH, BNP, T7, LIPID, CMP ####[facility] [address] [place] [address]Dr. Dinah Rodriges Anion gap [Moles/Vol] 8.7 mmol/L Normal [facility] Comment on above: Performed By: #### T SH, BNP, T7, LIPID, CMP ####[facility] [address] [place] [address]Dr. Dinah Rodriges AST [Catalytic activity/Vol] 12 U/L Critically low 15-37 [facility] Comment on above: Performed By: #### T SH, BNP, T7, LIPID, CMP ####[facility] [address] [place] [address]Dr. Dinah Rodriges Bilirubin [Mass/Vol] 0.3 mg/dL Normal 0.2-1.0 [facility] Comment on above: Performed By: #### T SH, BNP, T7, LIPID, CMP ####[facility] [address] [place], [place] [address]Dr. Dinah Rodriges Calcium [Mass/Vol] 9.3 mg/dL Normal 8.5-10.1 [facility] Comment on above: Performed By: #### T SH, BNP, T7, LIPID, CMP ####[facility] [address] [place], [place] [address]Dr. Dinah Rodriges Chloride [Moles/Vol] 104 mmol/L Normal 98-107 [facility] Comment on above: Performed By: #### T SH, BNP, T7, LIPID, CMP ####[facility] [address] [place], [place] [address]Dr. Dinah Rodriges CO2 [Moles/Vol] 33.2 mmol/L Critically high 21.0-32.0 [facility] Comment on above: Performed By: #### T SH, BNP, T7, LIPID, CMP ####[facility] [address] [place], [place] [address]Dr. Dinah Rodriges Creatinine [Mass/Vol] 1.11 mg/dL Critically high 0.55-1.02 [facility] Comment on above: Performed By: #### T SH, BNP, T7, LIPID, CMP ####[facility] [address] [place], [place] [address]Dr. Dinah Rodriges EGFR-AF STATELESS 57 mL/min/1.73m2 Critically low >=60 [facility] Comment on above: Performed By: #### T SH, BNP, T7, LIPID, CMP ####[facility] [address] [place], [place] [address]Dr. Dinah Rodriges EGFR-NON AF STATELESS 47 mL/min/1.73m2 Critically low >=60 [facility] Comment on above: Performed By: #### T SH, BNP, T7, LIPID, CMP ####[facility] [address] [place] [address]Dr. Dinah Rodriges Globulin (S) [Mass/Vol] 3.4 g/dL Normal [facility] Comment on above: Performed By: #### T SH, BNP, T7, LIPID, CMP ####[facility] [address] [place] [address]Dr. Lizlan Rodriges Glucose [Mass/Vol] 84 mg/dL Normal 74-106 [facility] Comment on above: Performed By: #### T SH, BNP, T7, LIPID, CMP ####[facility] [address] [place], [place] [address]Dr. Dinah Rodriges Potassium [Moles/Vol] 4.9 mmol/L Normal 3.5-5.1 [facility] Comment on above: Performed By: #### T SH, BNP, T7, LIPID, CMP ####[facility] [address] [place], [place] [address]Dr. Lizlan Rodriges Protein [Mass/Vol] 6.7 g/dL Normal 6.4-8.2 [facility] Comment on above: Performed By: #### T SH, BNP, T7, LIPID, CMP ####[facility] [address] [place], [place] [address]Dr. Lizlan Rodriges Sodium [Moles/Vol] 141 mmol/L Normal 136-145 [facility] Comment on above: Performed By: #### T SH, BNP, T7, LIPID, CMP ####[facility] [address] [place], [place] [address]Dr. Yilan Rodriges Urea nitrogen [Mass/Vol] 18.0 mg/dL Normal 7.0-18.0 [facility] Comment on above: Performed By: #### T SH, BNP, T7, LIPID, CMP ####[facility] [address] [place], [place] [address]Dr. Lizlan Rodriges Urea nitrogen/Creatinine [Mass ratio] 16.2 mg/mg Normal [facility] Comment on above: Performed By: #### T SH, BNP, T7, LIPID, CMP ####[facility] [address] [place], [place] [address]Xd. Dinah Rodriges TSHon 01-20-2022 TSH 1.061 uIU/mL Normal 0.358-3.740 [facility] Comment on above: Performed By: #### T SH, BNP, T7, LIPID, CMP ####[facility] [address] [place], [place] [address]Bh. Dinah [facility] TSH RANGE SEE BELOW Normal [facility] Comment on above: Result Comment: <0.3 4 UIU/ml HYPERTHYROID 0.34-5.60 UIU/ml EUTHYROID >5.60 UIU/ml HYPOTHYROID Performed By: #### T SH, BNP, T7, LIPID, CMP ####[facility] [address] [place], [place] [address]Sa. Dinah Rodriges XR DEXA BONE DENSITYon 01-20 [...] DUDLEY RYDER Date: 2022-01-20 11:30 Normal [facility] Cardiovascular Lab Reporton 12-23-2018 Cardiovascular Lab Report [facility] MR #: [id number] Department of Physician: Martha Seymour M.D. Division of Service Date: 12/23/2018 Cardiology Birthdate: 1940 Adult Cardiovascular Room #: [facility] [address] [place], [place] [address] Cardiovascular Laboratory Report PROCEDURE: Transesophageal echocardiogram and cardioversion. INDICATION: Atrial fibrillation. FELLOW: Neto Doty MD PROCEDURE IN DETAIL: An informed consent was obtained from the patient after explaining the indication, risks and benefits, and alternatives. The patient understood and agreed and signed the consent form. The patient was brought to the clinical laboratory scientist and transesophageal echocardiogram was performed under conscious [...] will follow up with me in the [facility] in 2-4 weeks Electronically Signed by: Goldie Vaughan M.D. 01/05/2019 08:36 A Goldie Vaughan M.D. I was present for the entire procedure. Date Dict: 12/23/2018/03:28 P/Neto Doty MD Date Trans: 12/23/2018 04:19 P/beth [id number] cc: Jacinto Servin M.D. [address] [place] [address] Normal [facility] Cardiovascular Lab Reporton 12-16-2018 Cardiovascular Lab Report [facility] Patient Name: Surendra, Medical Myla Rubin MR #: [id number] Department of Physician: Martha Ken M.D. Division of Service Date: 12/15/2018 Cardiology Birthdate: 1940 Adult Cardiovascular Room #: [id number] [facility] [address] [place] [id number] Cardiovascular Laboratory Report CLINICAL PRESENTATION: The patient is a 78-year-old female with past medical history significant for hypertension. She was admitted to [facility] with worsening shortness of breath. She was diagnosed with acute congestive heart failure and atrial fibrillation with a rapid ventricular rate. She was evaluated by my colleague, Dr. Lee, [place] [facility]. EKG showed ST elevations in the anterolateral leads and she was transferred urgently to the [facility] due to possible acute myocardial infarction. [...] ultrasound guidance and micropuncture access technique, a 6-Latvian sheath placed in the right common femoral [...] NAYELI are widely patent. Electronically Signed by: Silviano Cano M.D. 12/16/2018 09:18 A Silviano Cano M.D. Date Dict: 12/15/2018/12:51 P/Silviano Cano M.D. Date Trans: 12/16/2018 06:03 Denis/beth [id number] cc: Jacinto Servin M.D. [place] [address] [facility] [id number] Peter Lee M.D. [facility] [address] Normal The [facility] BASIC METABOLIC PANELon 12-05 Calcium [Mass/Vol] 9.3 mg/dL Normal 8.6-10.3 [facility] Comment on above: Order Comment: No: D o not add to previous draw Performed By: #### 4 6413, 67443, 40542, 27430, 90027 #### [facility] [address] [place] [address], [place] Chloride [Moles/Vol] 102 mmol/L Normal 98-107 [facility] Comment on above: Order Comment: No: D o not add to previous draw Performed By: #### 4 6413, 44685, 12606, 36840, 49428 #### [facility] [address] [place] [address], [place] CO2 [Moles/Vol] 27 mmol/L Normal 21-31 [facility] Comment on above: Order Comment: No: D o not add to previous draw Performed By: #### 4 6413, 52312, 05404, 05010, 62981 #### [facility] [address] [place] [address], [place] Creatinine [Mass/Vol] 0.91 mg/dL Normal 0.60-1.20 [facility] Comment on above: Order Comment: No: D o not add to previous draw Performed By: #### 4 6413, 90947, 63985, 34568, 59341 #### [facility] [address] [place] [address], [place] GFR/1.73 sq M predicted among blacks MDRD (S/P/Bld) [Vol rate/Area] mL/min/{1.73_m2} Normal >60 [facility] Comment on above: Order Comment: No: D o not add to previous draw Result Comment: Calc ulation may not be valid for patients over 70 years Performed By: #### 4 6413, 05213, 57151, 31736, 04645 #### [facility] [address] [place] [address], [place] GFR/1.73 sq M predicted among non-blacks MDRD (S/P/Bld) [Vol rate/Area] mL/min/{1.73_m2} Normal >60 [facility] Comment on above: Order Comment: No: D o not add to previous draw Result Comment: Calc ulation may not be valid for patients over 70 years Performed By: #### 4 6413, 45245, 37659, 89299, 28649 #### [facility] [address] [place] [address], [place] Glucose [Mass/Vol] 130 mg/dL High 70-100 The [facility] Comment on above: Order Comment: No: D o not add to previous draw Performed By: #### 4 6413, 14736, 10178, 22564, 36000 #### [facility] [address] [place] [address], [place] Potassium [Moles/Vol] 3.5 mmol/L Normal 3.5-5.1 [facility] Comment on above: Order Comment: No: D o not add to previous draw Performed By: #### 4 6413, 48959, 41172, 79595, 69026 #### [facility] [address] [place] [address], [place] Sodium [Moles/Vol] 140 mmol/L Normal 136-145 [facility] Comment on above: Order Comment: No: D o not add to previous draw Performed By: #### 4 6413, 59846, 79580, 78010, 31435 #### [facility] [address] [place] [address], [facility] Urea nitrogen [Mass/Vol] 19 mg/dL Normal 7-25 [facility] Comment on above: Order Comment: No: D o not add to previous draw Performed By: #### 4 6413, 80903, 11490, 86841, 72886 #### [facility] [address] [place] [address], [facility] BNP (B-TYPE NATRIURETIC PEPT CORI)on 12-15-2018 Natriuretic peptide B (Bld) [Mass/Vol] 369 pg/mL High 0-100 [facility] Comment on above: Order Comment: No: D o not add to previous draw Result Comment: Give n the appropriate clinical setting a BNP result of >100 pg/mL indicates congestive heart failure. Performed By: #### 8 5123, 95902 #### [facility] [address] CBC COMPLETE BLOOD COUNTon 0 12-15-2018 Erythrocyte distribution width (RBC) [Ratio] 12.9 % Normal 11.5-15.0 [facility] Comment on above: Order Comment: No: D o not add to previous draw Performed By: #### 5 0608 #### [facility] [address] [place] [address], [facility] Hematocrit (Bld) [Volume fraction] 39.0 % Normal 36.0-45.0 [facility] Comment on above: Order Comment: No: D o not add to previous draw Performed By: #### 5 0608 #### [facility] [address] [place] [address], [facility] Hemoglobin (Bld) [Mass/Vol] 12.6 g/dL Normal 12.0-15.0 [facility] Comment on above: Order Comment: No: D o not add to previous draw Performed By: #### 5 0608 #### [facility] [address] [place] [id number], [facility] MCH (RBC) [Entitic mass] 31.6 pg Normal 27.0-33.0 [facility] Comment on above: Order Comment: No: D o not add to previous draw Performed By: #### 5 0608 #### [facility] [address] [place] [id number], [facility] MCHC (RBC) [Mass/Vol] 32.3 g/dL Normal 32.0-35.0 [facility] Comment on above: Order Comment: No: D o not add to previous draw Performed By: #### 5 0608 #### [facility] [address] [place] [id number], [facility] MCV (RBC) [Entitic vol] 97.7 fL Normal 82.0-98.0 [facility] Comment on above: Order Comment: No: D o not add to previous draw Performed By: #### 5 0608 #### [facility] [address] [place] [address], [facility] Nucleated RBC/100 WBC (Bld) [Ratio] 0 % Normal 0-0 [facility] Comment on above: Order Comment: No: D o not add to previous draw Performed By: #### 5 0608 #### [facility] [address] [facility] [address] [place] [id number], [facility] PLAT CNT 252 10*3/uL Normal 150-400 [facility] Comment on above: Order Comment: No: D o not add to previous draw Performed By: #### 5 0608 #### [facility] [address] [place] [address], [facility] RBC (Bld) [#/Vol] 3.99 10*6/uL Normal 3.80-5.00 [facility] Comment on above: Order Comment: No: D o not add to previous draw Performed By: #### 5 0608 #### [facility] [address] [place] [address], [facility] WBC (Bld) [#/Vol] 8.04 10*3/uL Normal 4.00-10.60 [facility] Comment on above: Order Comment: No: D o not add to previous draw Performed By: #### 5 0608 #### [facility] [address] [place] [address], [facility] HEMOGLOBIN A1Con 12-15-2018 HbA1c (Bld) [Mass fraction] 108 mg/dL Normal 70-126 [facility] Comment on above: Order Comment: No: D o not add to previous draw Performed By: #### 8 5123, 49263 #### [facility] [address] [place] [address], [facility] HbA1c (Bld) [Mass fraction] 5.4 % Normal 4.0-6.0 [facility] Comment on above: Order Comment: No: D o not add to previous draw Performed By: #### 8 5123, 02724 #### [facility] [address] [place] [address], [facility] LIPID PROFILEon 12-15-2018 Cholesterol [Mass/Vol] 138 mg/dL Normal 120-200 [facility] Comment on above: Order Comment: No: D o not add to previous draw Result Comment: CHOL ESTEROL REFERENCE RANGE: 20 YEARS AND OLDER CARDIOVASCULAR RISK Less than 200 mg/dl Low Risk 200 to 239 mg/dl Borderline Risk 240 mg/dl and greater High Risk Performed By: #### 4 6413, 88359, 53036, 22624, 20224 #### [facility] [address] [place] [address], [facility] Cholesterol in HDL [Mass/Vol] 36 mg/dL Normal 23-92 [facility] Comment on above: Order Comment: No: D o not add to previous draw Result Comment: Slig ht variation in normal range could be due to gender and/or age. HDL CHOLESTEROL REFERENCE RANGE: 20 years and older Cardiovascular Risk > or =60 mg/dL Desirable 40 TO 59 mg/dL Low Risk <40 mg/dL High Risk Performed By: #### 4 6413, 14190, 77442, 21084, 48772 #### [facility] [address] [place] [address], [facility] Cholesterol in LDL [Mass/Vol] 81 mg/dL Normal 0-130 [facility] Comment on above: Order Comment: No: D o not add to previous draw Result Comment: LDL IS A CALCULATION LDL IS ONLY VALID IF THE TRIG IS LESS THAN 400. Performed By: #### 4 6413, 74806, 36276, 88518, 34001 #### [facility] [address] [place] [address], [facility] Cholesterol.total/Cho lesterol in HDL [Mass ratio] 3.8 {ratio} Normal .0-4.5 [facility] Comment on above: Order Comment: No: D o not add to previous draw Performed By: #### 4 6413, 77159, 70939, 89757, 63660 #### [facility] [address] [place] [address], [facility] NON-HDL CHOLESTEROL 102 mg/dL Normal [facility] Comment on above: Order Comment: No: D o not add to previous draw Performed By: #### 4 6413, 58503, 44007, 98847, 81924 #### [facility] [address] [place] [address], [facility] Triglyceride [Mass/Vol] 106 mg/dL Normal 40-149 [facility] Comment on above: Order Comment: No: D o not add to previous draw Result Comment: TRIG LYCERIDE REFERENCE RANGE: 20 YEARS AND OLDER CARDIOVASCULAR RISK LESS THAN 150 mg/dl LOW RISK 150 TO 199 mg/dl BORDERLINE RISK 200 mg/dl AND GREATER HIGH RISK Performed By: #### 4 6413, 65866, 83182, 98447, 12281 #### [facility] [address] [place] [address], [place] VLDL CHOL 21 mg/dL Normal 0-40 [facility] Comment on above: Order Comment: No: D o not add to previous draw Performed By: #### 4 6413, 85037, 41823, 32339, 00275 #### [facility] [address] [place] [address], [facility] MAGNESIUM BLOODon 12-15-2018 Magnesium [Mass/Vol] 1.9 mg/dL Normal 1.9-2.7 [facility] Comment on above: Order Comment: No: D o not add to previous draw Performed By: #### 4 6413, 75675, 44400, 24496, 16553 #### [facility] [address] [place] [address], [facility] PHOSPHORUS BLOODon 9 Phosphate [Mass/Vol] 4.5 mg/dL Normal 2.5-5.0 [facility] Comment on above: Order Comment: combi henry request Performed By: #### 4 6413, 22485, 40680, 76075, 46088 #### [facility] [address] PORTABLE CHEST 1 VIEWon 12-05 PORTABLE CHEST [address] [facility] Department of Radiology [address] [place] [id number] Patient Name: NEREIDA AGOSTO : 1940 Sex: F Age: Race: White Pt. Location: [id number] Patient Status: I Ordered Date: 12/15/2018 2:10:00 [...] failure Electronically signed by:Bharti Bazan. Transcribed by: [email or web address], User Resident: Electronically Signed by: BHARTI BAZAN @ 12/15/2018 03:50 PM Normal [facility] Comment on above: Order Comment: R/O C HF TSH3on 12-15-2018 TSH 3RD GENERATION 0.86 uIU/mL Normal 0.34-5.60 [facility] Comment on above: Performed By: #### 4 6413, 51360, 86425, 85904, 54853 #### [address] Vital Signs Date Time Vital Sign Value Performing Clinician Facility 09-28-2024 08:58-0500 Blood Pressure Location Harmony Bettencourt [facility] 09-28-2024 08:58-0500 Diastolic blood pressure 87 mm[Hg] Harmony Bettencourt [facility] 09-28-2024 08:58-0500 Heart rate 67 /min Mohamad Mouchli [facility] 09-28-2024 08:58-0500 Systolic blood pressure 128 mm[Hg] Mohamad Mouchli [facility] 09-13-2024 12:40-0500 Diastolic blood pressure 80 mm[Hg] Mohamad Mouchli [facility] 09-13-2024 12:40-0500 Heart rate 80 /min Mohamad Mouchli [facility] 09-13-2024 12:40-0500 Respiratory rate 13 /min Mohamad Mouchli [facility] 09-13-2024 12:40-0500 SaO2% (BldA) [Mass fraction] 95 % Mohamad Mouchli [facility] Comment on above: Result Comment: patient had cold fingers , waveform was suboptimal, no SOB or other signs of respiratory difficulty 09-13-2024 12:40-0500 Systolic blood pressure 116 mm[Hg] Mohamad Mouchli [facility] 09-13-2024 12:30-0500 Diastolic blood pressure 69 mm[Hg] Mohamad Mouchli [facility] 09-13-2024 12:30-0500 Heart rate 80 /min Mohamad Mouchli [facility] 09-13-2024 12:30-0500 Respiratory rate 22 /min Mohamad Mouchli [facility] 09-13-2024 12:30-0500 SaO2% (BldA) [Mass fraction] 96 % Mohamad Mouchli [facility] 09-13-2024 12:30-0500 Systolic blood pressure 120 mm[Hg] Mohamad Mouchli [facility] 09-13-2024 12:15-0500 Diastolic blood pressure 48 mm[Hg] Mohamad Mouchli [facility] 09-13-2024 12:15-0500 Heart rate 81 /min Mohamad Mouchli [facility] 09-13-2024 12:15-0500 Respiratory rate 22 /min Mohamad Mouchli [facility] 09-13-2024 12:15-0500 SaO2% (BldA) [Mass fraction] 97 % Mohamad Mouchli [facility] 09-13-2024 12:15-0500 Systolic blood pressure 101 mm[Hg] Mohamad Mouchli [facility] 09-13-2024 11:43-0500 Body temperature 97.16 [degF] Mohamad Mouchli [facility] 09-13-2024 11:40-0500 Respiratory rate 18 /min Mohamad Mouchli [facility] 09-13-2024 11:35-0500 Respiratory rate 18 /min Mohamad Mouchli [facility] 09-13-2024 11:30-0500 Respiratory rate 18 /min Mohamad Mouchli [facility] 09-13-2024 09:33-0500 Blood Pressure Location Mohamad Mouchli [facility] 09-13-2024 09:33-0500 Body temperature 96.8 [degF] Mohamad Mouchli [facility] 06-08-2024 09:46-0400 Blood Pressure Location Mohamad Mouchli [facility] 06-08-2024 09:46-0400 Diastolic blood pressure 73 mm[Hg] Mohamad Mouchli [facility] 06-08-2024 09:46-0400 Heart rate 64 /min Mohamad Mouchli [facility] 06-08-2024 09:46-0400 Respiratory rate 16 /min Mohamad Mouchli [facility] 06-08-2024 09:46-0400 Systolic blood pressure 111 mm[Hg] Mohamad Mouchli [facility] 03-15-2024 13:44-0400 Blood Pressure Location Rashi NILL [facility] 03-15-2024 13:44-0400 Diastolic blood pressure 80 mm[Hg] Rashi NILL [facility] [place] 03-15-2024 13:44-0400 Heart rate 76 /min Rashi NILL [facility] 03-15-2024 13:44-0400 Respiratory rate 16 /min Rashi NILL [facility] 03-15-2024 13:44-0400 Systolic blood pressure 118 mm[Hg] Rashi NILL [facility] [place] 02-02-2023 14:45-0400 Blood Pressure Location Rashi NILL [facility] [place] 02-02-2023 14:45-0400 Diastolic blood pressure 76 mm[Hg] Rashi NILL [facility] [place] 02-02-2023 14:45-0400 Heart rate 74 /min Rashi NILL [facility] [place] 02-02-2023 14:45-0400 Respiratory rate 16 /min Rashi SWAN [facility] [place] 02-02-2023 14:45-0400 Systolic blood pressure 126 mm[Hg] Rashi SWAN [facility] [place] Encounters Encounter Date Encounter Type Care Provider Facility Start: 10-01-2025 [facility] Start: 09-28-2024 End: 09-28-2024 ambulatory [facility] Start: 09-28-2024 End: 09-28-2024 Patient encounter procedure Harmony Bettencourt [facility] Start: 09-13-2024 End: 09-13-2024 ambulatory Harmony Bettencourt Facility[facility] Start: 09-13-2024 End: 09-13-2024 Patient encounter procedure Harmony Bettencourt [facility] Start: 06-08-2024 ambulatory Harmony Bettencourt Facilit y:[facility] Start: 06-08-2024 End: 06-08-2024 ambulatory [facility] Start: 06-08-2024 End: 06-08-2024 Patient encounter procedure Harmony Bettencourt [facility] Start: 05-10-2024 End: 05-10-2024 ambulatory Rashi SWAN Facility:[facility] Start: 05-10-2024 End: 05-10-2024 Patient encounter procedure Rashi SWAN [facility] Start: 04-26-2024 End: 04-26-2024 ambulatory Rashi Swan [facility] Work Phone: Start: 04-26-2024 End: 04-26-2024 Departed Referred MD Rashi Swan Work Phone: [facility] [place] [facility] Start: 04-26-2024 End: 04-26-2024 ambulatory Rashi SWAN Facility::[id number] Start: 04-13-2024 End: 04-13-2024 ambulatory ROD AGUAYO Not Available Start: 03-29-2024 End: 03-29-2024 ambulatory ROD OLIVIER Not Available Start: 03-15-2024 End: 03-15-2024 ambulatory Rashi SWAN Facility: [facility] Start: 03-15-2024 End: 03-15-2024 Patient encounter procedure Rashi SWAN [facility] [place] Start: 02-07-2024 End: 02-07-2024 ambulatory [facility] Start: 10-28-2023 End: 10-28-2023 ambulatory [facility] Start: 08-05-2023 End: 08-05-2023 ambulatory [facility] Start: 03-05-2023 End: 03-05-2023 Patient encounter procedure Rashi SWAN General Surgery Nill/Said [place] Start: 02-19-2023 End: 02-19-2023 ambulatory [facility] Start: 02-02-2023 End: 02-02-2023 Patient encounter procedure Rashi SWAN General Surgery [facility] [place] Start: 01-21-[address] JACINTO SERVIN . Facili ty:[facility] Start: 01-19-2023 End: 01-19-[address] JACINTO SERVIN . Facility:[facility] Start: 01-18-2023 End: 01-19-[address] JACINTO SERVIN . Facility: Start: 01-20-2022 End: 01-21-[address] JACINTO SERVIN . Facility: Start: 12-23-2018 End: 12-24-2018 Patient encounter procedure NEDAB Denis VAUGHAN Facility:[facility] Start: 12-15-2018 End: 12-16-2018 Evaluation and management of inpatient PETER LEE Facility:[facility] Procedures Date Procedure Procedure Detail Performing Clinician Start: 09-13-2024 Colonoscopy Harmony maravilla Start: 04-26-2024 Colonoscopy Rashi NI LL Start: 02-24-2023 Colonoscopy Rashi NI LL Start: 12-15-2018 FLUOROSCOPY OF MULTI PLE CORONARY ARTERIES USING OTH CONTRAST SILVIANO CANO Start: 12-15-2018 MEASURE CARDIAC SAMP L \T\ PRESSURE, BILATERAL, PERC SILVIANO ÁLVAREZPTA Start: 12-15-2018 MEASUREMENT OF ARTER IAL FLOW, PULMONARY, PERC APPROACH SILVIANO CANO Cardiac fluoroscopy Rashi CAMARAL Closed fracture of h ip (disorder) Rashi NILL Ligation of fallopian tube M emelina ALVARO Plan of Treatment Date Care Activity Detail Author Start: 04-26-2024 [facility] Immunizations Immunization Date Immunization Notes Care Provider Rusty morales 07-21-2022 influenza virus vaccine, unspecified formulation Rashi NILL [facility] [place] 08-28-2021 SARS-CoV-2 (COVID-19 ) mRNA-1273 vaccine Rashi NILL [facility] [place] 11-14-2020 SARS-CoV-2 (COVID-19 ) mRNA-1273 vaccine Rashi NILL [facility] [place] 10-18-2020 SARS-CoV-2 (COVID-19 ) mRNA-1273 vaccine Rashi NILL [facility] [place] 07-11-2020 influenza virus vaccine, unspecified formulation Heamad Javiduchli [facility] 07-26-2017 pneumococcal conjuga te vaccine, 13 valent Endoclearamad Mouchli [facility] 06-29-2016 influenza, unspecifi ed formulation Heamad Mouchli [facility] 06-29-2016 pneumococcal polysaccharide vaccine, 23 valent Heamad Mouchli [facility] NEGATED: Highlighted row has not occurred!09-28-2024 influenza virus vaccine, unspecified formulation Sarbjitd Mouchli [facility] NEGATED: Highlighted row has not occurred!06-08-2024 influenza virus vaccine, unspecified formulation eHamad Javiduchli [facility] Payers Date Payer Category Payer Self-pay [id number] 2022 [employer] ( and others) [id number] 2018 [employer] ( and others) [id number] 1959 [employer] ( and others) [id number] 1959 Medicare [id number] 1940 Unknown [id number] 1942 Unknown [id number] 2..840.1.060791.3.579.2.647 1942 Unknown [id number] 2.16.840.1.956861.3.579.2.593 1942 Unknown [id number] 2.16.840.1.923915.3.579.2.593 1942 Unknown [id number] 2.16.840.1.601089.3.579.2.593 1942 Unknown [id number] 2.16.840.1.386514.3.579.2.593 1942 Unknown [id number] 2.16.840.1.880588.3.579.2.1259 1942 Unknown [id number] 2.16.840.1.651675.3.579.2.1259 1942 Unknown [id number] 2.16.840.1.700689.3.579.2.1259 1942 Unknown [id number] 2.16.840.1.882946.3.579.2.727 1942 Unknown [id number] 2.16.840.1.017593.3.579.2.727 1942 Unknown [id number] 2.16.840.1.783629.3.579.2.727 1942 Unknown [id number] 2.16.840.1.168418.3.579.2.727 1942 Unknown [id number] 2.16.840.1.843478.3.579.2.727 1942 Unknown [id number] 2.16.840.1.620872.3.579.2.727 1942 Unknown [id number] 2.16840.1.523243.3.579.2.727 Department of [facility] e ( and others) [id number] Unknown [id number] [id number] Social History Date Type Detail Facility Start: 02-02-2023 End: 09-28-2024 Tobacco smoking status Ex-smoker (finding) [facility] [place] Tobacco smoking status Never Gener [facility] [place] Sex Assigned At Female [facility] Start: 02-03-2020 Tobacco smoking stat us NMIS Never smoked tobacco (finding) [facility] Start: 1940 Sex Assigned At Female F [facility] Medical Equipment Procedure Code Equipment Code Equipment Origin al Text Equipment Identifier Dates Orthopaedic bone screw, non-bioabsorbable, non-sterile [id number] FDA Start: 02-03-2020 Femur nail, sterile ()[id number] FDA Start: 02-03-2020 Spiral blade ()[id number] FDA Start: 02-03-2020 Unknown Unknown 09/13/24 Non Biological Unknown FDA Start: 09-13-2024 FDA Start: 09-13-2024 Unknown Unknown 09/13/24 Non Biological Unknown FDA Start: 09-13-2024 FDA Start: 09-13-2024 Functional Status Date Assessment Result Facility 09-28-2024 Functional Status N/A [facility] 09-13-2024 Functional Status N/A [facility] 06-08-2024 Functional Status N/A [facility] 03-15-2024 Functional Status N/A [facility] [place] 02-02-2023 Functional Status N/A [facility] Clinical Notes 02-19-2023 to 09-17-2024 Note Date & Type Note Facility 09-17-2024 Note Progress Note-Physic ashley Patient: NEREIDA AGOSTO Age: 84 years Sex: [...] list: All Problems Osteoporosis / SNOMED CT 939125114 / Confirmed Positive fecal occult blood test / SNOMED CT 42141883 / Confirmed Obesity due to excess calories / SNOMED CT 6879568722 / Confirmed LVH (left ventricular hypertrophy) / SNOMED CT 65092100 / Confirmed Left atrial enlargement / SNOMED CT 1505257900 / Confirmed Hypothyroidism / SNOMED CT 64279546 / Confirmed HTN (hypertension) / SNOMED CT 2751668609 / Confirmed Personal history of colonic polyps / SNOMED CT 9334220504 / Confirmed History of colon cancer / SNOMED CT 6888418055 / Confirmed Lower extremity edema / SNOMED CT 930555496 / Confirmed Congestive heart failure / SNOMED CT 00794727 / Confirmed Cardiomyopathy / SNOMED CT 784536554 / Confirmed Cardiomegaly / SNOMED CT 35052299 / Confirmed BMI 32.0-32.9,adult / SNOMED CT 457416478 / Confirmed A-fib / SNOMED CT 01372159 / Confirmed Aortic valve regurgitation / SNOMED CT 846942328 / Confirmed Tubulovillous adenoma of colon / SNOMED CT 0184244519 / Confirmed Histories Procedure history: Colonoscopy ([id number]) on 04/26/2024 at 84 Years. Colonoscopy (527876928) on 02/24/2023 at 82 Years. Tubal ligation (518684447). Closed fracture of hip (861658296). Cardiac fluoroscopy (561506497). Social History Social & Psychosocial Habits Alcohol [...] adequate air exchange. Cardiovascular: Regular rhythm. Plan [place] [employer]esthesi[employer] (ASA) physical status classification: Class III. Anesthetic Preoperative Plan: Anesthesia General. [facility] Comment on above: Result Comment: Elec tronically Signed By: Jim Whalen Jr, DO\.br\Date and Time Signed: 09/17/24 21:40 EST 09-17-2024 Note Progress Note-Physic ashley Patient: NEREIDA AGOSTO Age: 84 years Sex: Female : 1940 Associated Diagnoses: None Author: Jim Whalen Jr, DO Postoperative Information Postoperative disposition: Postoperative disposition: To [...] Pressure 96 mmHg HI SpO2 77 % 09/13/2024 11:45 EST Heart Rate Monitored 92 bpm Respiratory Rate Monitored 8 br/min Systolic Blood Pressure 128 mmHg Diastolic Blood Pressure 96 mmHg HI SpO2 55 % 09/13/2024 11:43 EST Temperature Temporal Artery 36.2 DegC LOW Heart Rate Monitored 97 bpm Respiratory Rate Monitored 0 br/min Systolic Blood Pressure 128 mmHg Diastolic Blood Pressure 96 mmHg HI SpO2 72 % Pain Assessment: Controlled. General: Awake, Alert, Appropriate. [...] when meets criteria ( To home ). [facility] Comment on above: Result Comment: Elec tronically Signed By: Koby Chaudhry DO, Jim Barrios\.br\Date and Time Signed: 09/17/24 21:40 EST 09-13-2024 Hospital Discharge instructions Patient Education 09/13/2024 12:22:03 Colonoscopy, Care After Surgery Salam (CUSTOM) Colonoscopy Care After Surgery Please read the [...] severe or gets worse throughout the day. 09/13/2024 12:22:00 Colon Polyps Colon Polyps Colon polyps are tissue growths [...] you more likely to develop this condition: Having a family history of colorectal cancer or colon polyps. Being older than 45 years of age. Being younger than 45 years of age and having a significant family history of colorectal cancer or colon polyps or a genetic condition that puts you at higher risk of getting colon polyps. Having inflammatory bowel disease, such as ulcerative colitis or Crohn's disease. Having certain conditions passed from parent to child (hereditary conditions), such as: ?Familial adenomatous polyposis (FAP). ?Thomas syndrome. ?Turcot syndrome. ?Peutz Jeghers syndrome. ?MUTYH-associated polyposis (MAP). Being overweight. Certain lifestyle factors. These include smoking cigarettes, drinking too much alcohol, not getting enough exercise, and eating a diet that is high in fat and red meat and low in fiber. Having had childhood cancer that was treated with radiation of the abdomen. What are the signs or symptoms? Many times, there are no symptoms. If you have symptoms, they may include: Blood coming from the rectum during a bowel movement. Blood in the stool (feces). The blood may be bright red or very dark in color. Pain in the abdomen. A change in bowel habits, such as [...] these instructions at home: Eating and drinking Eat foods that are high in fiber, such as fruits, vegetables, and whole grains. Eat foods that are high in calcium and vitamin D, such as milk, cheese, yogurt, eggs, liver, fish, and broccoli. Limit foods that are high in fat, such as fried foods and desserts. Limit the amount of red meat, precooked or cured meat, or other processed meat that you eat, such as hot dogs, sausages, sue, or meat loaves. Limit sugary drinks. Lifestyle Maintain a healthy weight, or lose weight if recommended by your health care provider. Exercise every day or as told by your health care provider. Do not use any products that contain nicotine or tobacco, such as cigarettes, e-cigarettes, and chewing tobacco. If you need help quitting, ask your health care provider. Do not drink alcohol if: ?Your health care provider tells you not to drink. ?You are , may be , or are planning to become . If you drink alcohol: ?Limit how much you use to: ?0 1 drink a day for women. ?0 2 drinks a day for men. ?Know how much alcohol is in your drink. In the [place] one drink equals one 12 oz bottle of beer (355 mL), one 5 oz glass of wine (148 mL), or one 1 oz glass of hard liquor (44 mL). General instructions Take zozh-ohq-adjixut and prescription medicines only as told by your health care provider. Keep all follow-up visits. This is important. This includes having regularly scheduled colonoscopies. Talk to your health care provider about when you need a colonoscopy. Contact a health care provider if: You have new or worsening bleeding during a bowel movement. You have new or increased blood in your stool. You have a change in bowel habits. You lose weight for no known reason. Summary Colon polyps are tissue growths inside the colon, which is part of the large intestine. They are one type of polyp that can grow in the body. Most colon polyps are noncancerous (benign), but some can become cancerous over time. This condition is diagnosed with a colonoscopy. This condition is treated by removing any polyps that are found. Most polyps can be removed during a colonoscopy. This information is not intended to replace advice given to you by your health care provider. Make sure you discuss any questions you have with your health care provider. Document Revised: 12/11/2020 Document Reviewed: 12/11/2020 [employer] Patient Education 2023 [employer]. 09/13/2024 12:21:59 Hemorrhoids, Kfrb-zv-Rvxv Hemorrhoids Hemorrhoids are swollen veins that may form: In the butt (rectum). These are called internal hemorrhoids. Around the opening of the butt (anus). These are called external hemorrhoids. Most hemorrhoids do not cause very bad problems. They often get better with changes to your lifestyle and what you eat. What are the causes? Having trouble pooping (constipation) or watery poop (diarrhea). Pushing too hard when you poop. . Being very overweight (obese). Sitting for too long. Riding a bike for a long time. Heavy lifting or other things that take a lot of effort. Anal sex. What are the signs or symptoms? Pain. Itching or soreness in the butt. Bleeding from the butt. Leaking poop. Swelling. One or more lumps around the opening of your butt. How is this treated? In most cases, hemorrhoids can be treated at home. You may be told to: Change what you eat. Make changes to your lifestyle. If these treatments do not help, you may need to have a procedure done. Your doctor may need to: Place rubber bands at the bottom of the hemorrhoids to make them fall off. Put medicine into the hemorrhoids to shrink them. Shine a type of light on the hemorrhoids to cause them to fall off. Do surgery to get rid of the hemorrhoids. Follow these instructions at home: Medicines Take tjcm-xgj-kbraxng and prescription medicines only as told by your doctor. Use creams with medicine in them or medicines that you put in your butt as told by your doctor. Eating and drinking Eat foods that have a lot of fiber in them. These include whole grains, beans, nuts, fruits, and vegetables. Ask your doctor about taking products that have fiber added to them (fibersupplements). Take in less fat. You can do this by: ?Eating low-fat dairy products. ?Eating less red meat. ?Staying away from processed foods. Drink enough fluid to keep your pee (urine) pale yellow. Managing pain and swelling Take a warm-water bath (sitz bath) for 20 minutes to ease pain. Do this 3 4 times a day. You may do this in a bathtub. You may also use a portable sitz bath that fits over the toilet. If told, put ice on the painful area. It may help to use ice between your warm baths. ?Put ice in a plastic bag. ?Place a towel between your skin and the bag. ?Leave the ice on for 20 minutes, 2 3 times a day. If your skin turns bright red, take off the ice right away to prevent skin damage. The risk of damage is higher if you cannot feel pain, heat, or cold. General instructions Exercise. Ask your doctor how much and what kind of exercise is best for you. Go to the bathroom when you need to poop. Do not wait. Try not to push too hard when you poop. Keep your butt dry and clean. Use wet toilet paper or moist towelettes after you poop. Do not sit on the toilet for a long time. Contact a doctor if: You have pain and swelling that do not get better with treatment. You have trouble pooping. You cannot poop. You have pain or swelling outside the area of the hemorrhoids. Get help right away if: You have bleeding from the butt that will not stop. This information is not intended to replace advice given to you by your health care provider. Make sure you discuss any questions you have with your health care provider. Document Revised: 05/05/2023 Document Reviewed: 05/05/2023 [employer] Patient Education 2023 [employer] Follow Up Care 06/08/2024 10:51:59 With:Rut AHMADI, SHANE Guerrero, [facility] Address: [address] [place] [address], [address] [place] [address]- [phone] Business (1) When: Unknown Comments:-Office to call for pathology results. Call for any problems. [phone] [facility] 09-13-2024 Note Patient Education - Text Colonoscopy Care After [...] these instructions at home: Medicines ??? Take scyf-zub-vkzlexw and prescription medicines only as told by [...] to push too hard when you poop. (more content not included)... [facility] 02-07-2024 Note [facility] Cardiology Clinic Note Chief Complaint: Patient [...] is seen in (more content not included)... [facility] 10-28-2023 Note Cardiology [facility] Note SUBJECTIVE No chief complaint on [...] 4.9, GFR 47 (more content not included)... [facility] 10-28-2023 Note Patient here for 3 m [...] All other systems reviewed and are negative. [facility] 08-05-2023 Note Patient here for 6 m [...] All other systems reviewed and are negative. [facility] 08-05-2023 Note Cardiology Clinic No te Subjective [...] aorta. - Succes (more content not included)... [facility] 02-19-2023 Note Cardiology Clinic No te Subjective [...] up in about 6 months (around 08/21/2023). Malia Rojas (more content not included)... [facility] Evaluation + Plan note No data available for this section General [facility] [place] Evaluation + Plan note Future Appointments Appointment Date:09/13/2024 11:00:00 AM Scheduled Provider: Location:[facility] Appointment Type:Surgery FT Appointment Date:09/27/2024 12:15:00 PM Scheduled Provider:Harmony Bettencourt MD Location[facility] Appointment Type:[facility] Follow Up [facility] Evaluation + Plan note Future Appointments Appointment Date:09/28/2024 08:30:00 AM Scheduled Provider:Harmony Bettencourt MD Location:[facility] Appointment Type:BAD Follow Up [facility] Evaluation + Plan note Future Appointments Appointment Date:10/01/2025 12:15:00 PM Scheduled Provider:Harmony Bettencourt MD Location:[facility] Appointment Type:[facility] Follow Up [facility] Evaluation note No assessment inform ation available [facility] Work Phone: Hospital Discharge instructions No data available for this section [facility] [place] Progress note No data available for this section [facility] [place] Summary Purpose Family History No Family History Records FoundNo Family History Records FoundNo Family History Records Found No data available for this section No Family History Records FoundNo Family History Records Found No data available for this section No data available for this section No data available for this section No Family History Records Found No data available for this section No Family History Records FoundNo Family History Records Found Advance Directives No Advanced Directives Records Found Advance Directive Response Recorded Date/ Time Advance Directives No December 14 018 2:51pm Hospital Course Note MR#: [id number] [facility] Pt. Name: Nereida Agosto Admitted: 12/15/2018 [...] was sent to the ER. Apparently in [facility], the patient was found to have decompensated heart failure with new onset of atrial fibrillation. She was in rapid ventricular response. The patient was admitt (more content not included)... Additional Source Comments INFORMATION SOURCE (unrecogn ized section and content) DATE CREATED AUTHOR 04/29/[address] [facility] DATE CREATED AUTHOR AUTHOR'S ORGANIZ ATION 01/19/2023 [facility] DATE CREATED AUTHOR AUTHOR'S ORGANIZ ATION 02/07/2024 [facility] DATE CREATED AUTHOR AUTHOR'S ORGANIZ ATION 04/15/2024 [facility]ical [facility] DATE CREATED AUTHOR AUTHOR'S ORGANIZ ATION 05/04/2024 [facility] DATE CREATED AUTHOR AUTHOR'S ORGANIZ ATION 09/20/2024 [facility] DATE CREATED AUTHOR AUTHOR'S ORGANIZ ATION 09/30/2024 [facility] Patient Care team informatio n (unrecognized section and content) Team Status: Inactive Member Role Status Dates Rashi Swan MD FACS Attending Provider Active Start: April 26, 2024 End: April 26, 2024 Goals (unrecognized section and content) Goals may be documented in a n alternate section FOR RECORDS PERTAINING TO PATIENTS WHO ARE [...] BE BASED ON THE PRIMARY CLINICAL RECORDS. [employer] [facility]. provides no warranty or guarantee of the accuracy or completeness of information in this document.
--- NOTE | 2024-11-15 10:00 | CA_ITS ---
Patient Name: JOI DUNCAN MR#: [id number] : 1940 Exam Date: 11/15/2024 Ordering Doctor: DR GOLDIE VAUGHAN M.D. ECHOCARDIOGRAM REPORT PROCEDURE: CA ECHO DOPPLER COMPLETE INDICATIONS: Takotsubo cardiomyopathy COMPARISON: None. DESCRIPTION: COMPLETE ECHOCARDIOGRAM Real-time transthoracic echocardiography with 2D, M-mode, spectral and color flow Doppler performed. QUALITY: Technical quality was good. LEFT VENTRICLE: Normal chamber size. Normal left ventricular wall thickness. LV EF: Global left ventricular systolic function is normal; visually estimated ejection fraction is 55 to 60%. No significant wall motion abnormalities. DIASTOLIC: Not adequately assessed due to heart rhythm. ATRIAL SEPTUM: Visually appears intact. LEFT ATRIUM: Moderate dilatation. RIGHT ATRIUM: Normal chamber size. RIGHT VENTRICLE: Normal chamber size. Normal right ventricular systolic function. TRICUSPID VALVE: Normal mobility and thickness. No stenosis with trivial regurgitation. No evidence of pulmonary hypertension. RVSP 22 mmHg MITRAL VALVE: Normal mobility and thickness. No evidence of mitral valve stenosis. There is no mitral annular calcification. No mitral regurgitation. AORTIC VALVE: Normal trileaflet appearance. Thickened aortic valve. Normal leaflet mobility. No evidence of aortic valve stenosis. No aortic regurgitation. AORTIC ROOT: Normal diameter and appearance. PULMONIC VALVE: Normal thickness and mobility. No stenosis. PERICARDIUM: No evidence of pericardial effusion. IVC: Collapses with inspirations. CONCLUSION: 1. Global left ventricular systolic function is normal; visually estimated ejection fraction is 55 to 60% 2. Normal right ventricular size and systolic function 3. Left atrium is moderately dilated 4. Unable to assess diastolic function 5. No significant valvular abnormalities Adult Echocardiography Procedure Report Left Ventricle LVEDD (3.7 - 5.6 cm): 4.28 cm LVESD (2.2 - 4.0 cm): 3.00 cm LVIVS thickness (0.6 - 1.2 cm): 0.87 cm LVPW thickness (0.5 - 1.0 cm): 0.92 cm LVOT Max Gradient: 1.46 mm[Hg], 1.46 mm[Hg] LVOT Area (cm2): 0.60 m/s Peak Velocity (LVOT): 0.60 m/s, 0.60 m/s Mean Velocity (LVOT): 0.44 m/s LVOT Diameter 2.00 cm Left Atrium Left Atrium Systolic Dimension: 4.45 cm Mitral Valve Mitral Valve E-Wave Peak Velocity: 0.69 m/s Right Ventricle Aorta AO Root Diam: 3.35 cm Aortic Valve AoV Area (Peak Will): 2.63 cm2, 2.88 cm2, 2.42 cm2 AoV Area (VTI): 2.53 cm2, 3.09 cm2, 2.13 cm2 Peak Velocity(Antegrade Flow): 0.66 m/s, 0.79 m/s Peak Gradient(Antegrade Flow): 1.75 mm[Hg], 2.48 mm[Hg] Mean Velocity(Antegrade Flow): 0.45 m/s, 0.53 m/s Mean Gradient(Antegrade Flow): 0.92 mm[Hg], 1.34 mm[Hg] Velocity Time Integral: 11.72 cm, 16.25 cm Tricuspid Valve Peak Velocity (Regurgitant Flow): 2.20 m/s Pulmonic Valve Peak Velocity: 0.62 m/s Peak Gradient: 1.86 mm[Hg], 0.97 mm[Hg], 1.74 mm[Hg], 1.71 mm[Hg] Right Atrium Right Atrium Systolic Pressure: 40.69 ml, 40.69 ml Dictated by: Goldie Vaughan M.D. on 11/15/2024 at 12:02 Approved by: Goldie Vaughan M.D. on 11/15/2024 at 12:04
== END 2024-11-15 09:26 | disposition home or self-care (01) ==
LOC: CARD 09:26
PROVIDERS: PCP Family Medicine; Visit Provider Internal Medicine Interventional Cardiology
DX: I51.81 Takotsubo syndrome (principal)
CPT/HCPCS: 93306

== ENCOUNTER 2025-01-26 12:43 | Outpatient (OUT) | payer MEDICARE, OTHER, SELFPAY ==
--- OUTSIDE RECORDS SUMMARY | 2024-04-24 10:57 | XMS_ITS ---
Author Organization [facility] in [place] Address [address] [place] [address] Care Team Providers Care Bricklayer Supervisor Name Role Phone Manuel Servin Primary Care Provider REASON FOR VISIT lab results Encounters Encounter Location Date Provider Diagnosis [facility] [address] [place] [address] 04/24/2024 Manuel Servin Plan Of Treatment Next Appt Details Provider Name:Manuel Servin, 10:30:00 AM, [address] [place], [address], Progress Notes * Nereida AGOSTO PDOB:[birth year] (84 yo F)Acc No.[id number]:04/24/2024 Patient: Nereida GASCA :1940 A ge:84 Y S ex:Female Address:[address] [place] [address], [id number] * true * Date: Generated for Printi ng/Faxing/eTransmitting on: 0 01/26/2025 12:46 PM EDT
--- OUTSIDE RECORDS SUMMARY | 2024-07-13 05:57 | XMS_ITS ---
Author Organization [facility] in [place] Address [address] [place] [address] Care Team Providers Care Indexer Name Role Phone Manuel Servin Primary Care Provider [phone] REASON FOR VISIT Meclizine Medications Medication SIG (Take, Route, Fr equency, Duration) Notes Start Date End Date Status Meclizine HCl 25 mg TAKE 1 TABLET TWICE A DAY Active Encounters Encounter Location Date Provider Diagnosis [facility] [address] [place] [address] 07/13/2024 Manuel Servin Plan Of Treatment Medication Medication Name Sig Start Date Stop Date Notes Meclizine HCl 25 mg TAKE 1 TABLET TWICE A DAY Next Appt Details Provider Name:Manuel Servin, 10:30:00 AM, [address] [place], [address], Progress Notes * Nereida AGOSTO PDOB:[birth year] (84 yo F)Acc No.[id number]:07/13/2024 Patient: Belle Nereida MORILLO :1940 A ge:84 Y S ex:Female Address:[address] [place] [address], [phone] * Refills Refill Meclizine HCl Tablet, 25 mg, 60 Tablet, TAKE 1 TABLET TWICE A DAY, Refills=0 * true * Date: Generated for Kleber martinez/Sina/eTransmitting on: 0 01/26/2025 12:46 PM EDT
--- OUTSIDE RECORDS SUMMARY | 2024-09-28 09:12 | XMS_ITS ---
Author Name Auto Generated Organization [facility] Care Team Providers Care Sharepoint Designer Developer Name Role Phone ROD AGUAYO Attending Unavailable ROD AGUAYO Attending Unavailable Harmony Bettencourt Attending Unavailable Harmony Bettencourt ASimran Attending Unavailable Keyla SWAN Attending Unavailable Keyla SWAN Attending Unavailable Keyla SWAN Attending Unavailable Harmony Bettencourt ASimran Admitting Unavailable He Bettencourtamad A. Attending Unavailable Harmony Bettencourt ASimran Referring Unavailable Keyla Swan R Attending Unavailable Keyla Swan R Admitting Unavailable GOLDIE VAUGHAN Attending Unavailable PROBLEMS DATE TYPE CONDITION / CODE ATTENDING STATUS ALESSANDRO E 05/28/2022 Admitting Diagnosis Takotsubo syndrome / I51.81(ICD-10) GOLDIE VAUGHAN Active [facility] PROCEDURES No Procedure Records Found RESULTS GASTROENTEROLOGY OFFICE/CLIN IC NOTE Observed: 09/28/2024 9:23 AM Status: F Source: [facility] Gastroenterology Office/Clin ic Note Chief Complaint Colonoscopy results HPI Staff EST, 84 year old female who presents today for a follow-up to Colonoscopy. -1 year colon recall placed Last office visit w/ Dr Bettencourt 06/08/24 History of Present Illness pt with no symptoms pt with large polyp in the AC with HGD removed in piecemeal fashion in 2022 repeat colonoscope in 04/2024- 2 cecal polyp and ?recurrent polyp around a fold Assessment/Plan 1. Tubulovillous adenoma of colon (D12.6: Benign neoplasm of colon, unspecified) 2. History of colon cancer (Z85.038: Personal history of other malignant neoplasm of large intestine) Colonoscopy w/ Dr Bettencourt 09/13/24 Findings 1. Normal rectal exam 2. 8 mm sessile polyp seen in the ascending colon at the previous polypectomy site resected with EMR technique after raising this up with everlift (7 cc) and removing using hot snare. The margins were cauterized using the tip of the snare. The defect was closed using 1 Endo Clip 3. Sessile polyp measuring 4 mm in the sigmoid colon s/p resection using cold snare 4. Internal hemorrhoids 5. Normal terminal ileum Impression and Plan rectal polyp status post resection using EMR technique Sigmoid colon polyp???removed as above Internal hemorrhoids Recommendations: Repeat colonoscopy:: In 1 year. Final Diagnosis (Verified) A: POLYP, ASCENDING COLON, POLYPECTOMY: FRAGMENTED ADENOMATOUS COLONIC MUCOSAL POLYP, TUBULAR ADENOMA B: POLYP, SIGMOID COLON, POLYPECTOMY: HYPERPLASTIC COLONIC GLANDULAR MUCOSAL POLYP History of Present Illness I have reviewed HPI staff note, most recent labs and imaging, I agree with the above documentation with the following additions/exceptions : pt is doing well no symptoms Review of Systems PHQ Score Initial Depression Screen Score: 1 SCORE All systems reviewed, negative except as mentioned above Physical Exam Vitals & Measurements HR: 67(Peripheral) BP: 128/87 HT: 58 in HT: 147 cm WT: 72.8 kg WT: 160.496 lb BMI: 33.69 General: alert, no acute distress HEENT: atraumatic normocephalic Extremities: no deformity, no trauma Assessment/Plan 1. Tubulovillous adenoma of colon (D12.6: Benign neoplasm of colon, unspecified) 2. History of colon cancer (Z85.038: Personal history of other malignant neoplasm of large intestine) 3. BMI 32.0-32.9,adult (Z68.32: Body mass index [BMI] 32.0-32.9, adult) Repeat colonoscopy after 1 year for incompletely resected polyp removed using EMR technique Recommendations to be made after obtaining colonoscopy Advised the patient to eat healthy and lose weight Discussed potential causes of developing polyps Follow-up No qualifying data available Problem List/Past Medical History Ongoing A-fib Aortic valve regurgitation BMI 32.0-32.9,adult Cardiomegaly Cardiomyopathy Congestive heart failure History of colon cancer HTN (hypertension) Hypothyroidism Left atrial enlargement Lower extremity edema LVH (left ventricular hypertrophy) Obesity due to excess calories Osteoporosis Personal history of colonic polyps Positive fecal occult blood test Tubulovillous adenoma of colon Historical No qualifying data Procedure/Surgical History Colonoscopy (09/13/2024), Colonoscopy (04/26/2024), Colonoscopy (02/24/2023), Cardiac fluoroscopy, Closed fracture of [...] History Alcohol - Denies Alcohol Use, 02/02/2023 Never., 09/28/2024 Substance Abuse - Denies Substance Abuse, 02/02/2023 Tobacco Former smoker, quit more than 30 days ago Tobacco Use:. Never Smokeless Tobacco Use:. Cigarettes, 2 per day. Started age 23.0 Years. Stopped age 42 Years., 09/28/2024 Former smoker, quit more than 30 days ago Tobacco Use:., 09/28/2024 Family History Asthma: Mother. Renal cell carcinoma: Brother. Immunizations Vaccine Date Status Comments influenza virus vaccine, inactivated - Not Given Patient Refuses influenza virus vaccine, inactivated - Not Given Patient Refuses influenza virus vaccine, inactivated 07/21/2022 Recorded SARS-CoV-2 (COVID-19) mRNA-1273 vaccine 08/28/2021 Recorded SARS-CoV-2 (COVID-19) mRNA-1273 vaccine 11/14/2020 Recorded SARS-CoV-2 (COVID-19) mRNA-1273 vaccine 10/18/2020 Recorded influenza virus vaccine, inactivated 07/11/2020 Recorded pneumococcal 13-valent vaccine 07/26/2017 Recorded pneumococcal 23-valent vaccine 06/29/2016 Recorded influenza, unspecified formulation 06/29/2016 Recorded Result Comment: Electronical ly Signed By: Rut AHMADI, Harmony Jay\.br\Date and Time Signed: 09/28/24 09:23 EST REMINDERS Observed: 09/26/2024 12:44 PM Status: F Source: [facility] Reminders From: Uyen Carnes To: [facility] - Reminders/Recalls; Sent: 09/26/2024 12:44:45 EST Show up: 08/13/2025 12:44:00 EST Subject: Ambulatory Reminder- 1 year Due Date/Time: 09/13/2025 12:43:00 EST Reminder/Recall Colonoscopy- 09/13/2024 Dr Bettencourt 1 year recall Clinical Information (Verified) History of colon cancer Pre-Op Diagnosis: History of colon cancer Procedure: Colonoscopy Post-Op Diagnosis: 1. Rectal polyp status post resection using EMR technique 2. Sigmoid colon polyp???removed 3. Internal hemorrhoids Final Diagnosis (Verified) A: POLYP, ASCENDING COLON, POLYPECTOMY: FRAGMENTED ADENOMATOUS COLONIC MUCOSAL POLYP, TUBULAR ADENOMA B: POLYP, SIGMOID COLON, POLYPECTOMY: HYPERPLASTIC COLONIC GLANDULAR MUCOSAL POLYP PROGRESS NOTE-PHYSICIAN Observed: 2024 3:27 PM Status: F Source: [facility] Progress Note-Physician Patient: NEREIDA AGOSTO Age: 84 years Sex: Female : 1940 Associated Diagnoses: None Author: Whalen Jr DO, Jim A Postoperative Information Postoperative disposition: Postoperative disposition: To PACU. Optimetrix number: Optimetrix number [id number]. Anesthetic utilized: General. Health Status Allergies: Allergic Reactions (Selected) Severity Not Documented Sulfa drugs- Unknown. Physical Examination Vital Signs 09/13/2024 12:40 EST Heart Rate Monitored 80 bpm Respiratory Rate Monitored 13 br/min Systolic Blood Pressure 116 mmHg Diastolic Blood Pressure 80 mmHg SpO2 95 % 09/13/2024 12:30 EST Heart Rate Monitored 80 bpm Respiratory Rate Monitored 22 br/min Systolic Blood Pressure 120 mmHg Diastolic Blood Pressure 69 mmHg SpO2 96 % 09/13/2024 12:15 EST Heart Rate Monitored 81 bpm Respiratory Rate Monitored 22 br/min Systolic Blood Pressure 101 mmHg Diastolic Blood Pressure 48 mmHg LOW SpO2 97 % 09/13/2024 12:00 EST Heart Rate Monitored 87 bpm Respiratory Rate Monitored 15 br/min Systolic Blood Pressure 97 mmHg Diastolic Blood Pressure 52 mmHg LOW SpO2 100 % 09/13/2024 11:55 EST Heart Rate Monitored 94 bpm Respiratory Rate Monitored 18 br/min Systolic Blood Pressure 94 mmHg Diastolic Blood Pressure 58 mmHg LOW SpO2 100 % 09/13/2024 11:50 EST Heart Rate Monitored 86 bpm Respiratory Rate Monitored 16 br/min Systolic Blood Pressure 128 mmHg Diastolic Blood Pressure 96 mmHg HI SpO2 100 % 09/13/2024 11:47 EST Heart Rate Monitored 91 bpm Respiratory Rate Monitored 14 br/min Systolic Blood Pressure 128 mmHg Diastolic Blood Pressure 96 mmHg HI SpO2 97 % 09/13/2024 11:46 EST Heart Rate Monitored 96 bpm Respiratory Rate Monitored 10 br/min Systolic Blood Pressure 128 mmHg Diastolic Blood Pressure 96 mmHg HI SpO2 77 % <LLOW 09/13/2024 11:45 EST Heart Rate Monitored 92 bpm Respiratory Rate Monitored 8 br/min Systolic Blood Pressure 128 mmHg Diastolic Blood Pressure 96 mmHg HI SpO2 55 % <LLOW 09/13/2024 11:43 EST Temperature Temporal Artery 36.2 DegC LOW Heart Rate Monitored 97 bpm Respiratory Rate Monitored 0 br/min Systolic Blood Pressure 128 mmHg Diastolic Blood Pressure 96 mmHg HI SpO2 72 % <LLOW Pain Assessment: Controlled. General: Awake, Alert, Appropriate. Respiratory: Adequate air exchange. Cardiovascular: Stable, Normal peripheral perfusion. Neurological: Normal sensory function, Normal motor function. Assessment Anesthetic outcome No anesthetic complications noted. Adequate pain relief. able to void without difficulty, able to ambulate with assist, tolerating PO intake, no N/V. Review / Management Condition: Stable. Plan Transfer/Discharge: Transfer/Discharge Discharge when meets criteria ( To home ). Result Comment: Electronical ly Signed By: Jim Whalen Jr, DO\Date and Time Signed: 09/17/24 21:40 EST DISCHARGE INSTRUCTIONS Observed: 025 12:22 PM Status: F Source: [facility] Discharge Instructions NEREIDA AGOSTO :1940 Visit Date:09/13/2024 Inpatient Discharge Instructions Your Care Team Admitting Physician - Harmony Bettencourt MD Referring Physician - Harmony Bettencourt MD Reason for Your Visit HX OF COLON CANCER, TUBULOBILLOUS ADENOMA OF COLON Your Diagnosis Hemorrhoids, internal Polyp of ascending colon, Polyp, sigmoid colon Tests Performed Pathology Tissue Exam -- Results Pending -- Please visit your patient portal for your results or contact your primary care physician. This Is Your Medications List alendronate (alendronate 70 mg Tab) apixaban (Eliquis 5 mg oral tablet) aspirin (aspirin 81 mg Oral EC Tab) carvedilol (carvedilol 12.5 mg Tab) furosemide (furosemide 20 mg Tab) levothyroxine (Synthroid 50 mcg Tab) lisinopril (lisinopril 20 mg Tab) meclizine (meclizine 25 mg Tab) potassium chloride (potassium chloride 20 mEq ER Tab) Procedure History Colonoscopy (09/13/2024), Colonoscopy (04/26/2024), Colonoscopy (02/24/2023), Cardiac fluoroscopy, Closed fracture of hip, Tubal ligation. What to do next Instructions From Your Doctor No qualifying data available. Previously Scheduled Follow-Up Appointments 2024 8:30 AM EST With: Harmony Bettencourt MD Where: [facility] [address] [place] [phone]- New Follow Up Appointments after Discharge Follow Up with Harmony Bettencourt MD, [facility], [facility] When: Comments: -Office to call for pathology results. Call for any problems. [phone] Where: [address], [address] [place] [address]- [phone] Business (1) Medications What How Much When Instructions Next Dose Unchanged alendronate (alendronate 70 mg Tab) 1 Tablets By Mouth Every week Unknown, 1 Refill(s) Unchanged apixaban (Eliquis 5 mg oral tablet) 1 Tablets By Mouth 2 times a day Unknown Unchanged aspirin (aspirin 81 mg Oral EC Tab) 1 Tablets By Mouth Every day Unchanged carvedilol (carvedilol 12.5 mg Tab) 1 [...] Tab) 1 Tablets By Mouth Every day Test Results No qualifying data available. Allergies sulfa drugs (Unknown) Problems Ongoing - Any problem that you are currently receiving treatment for. A-fib Aortic valve regurgitation BMI 32.0-32.9,adult Cardiomegaly Cardiomyopathy Congestive heart failure History of colon cancer HTN (hypertension) Hypothyroidism Left atrial enlargement Lower extremity edema LVH (left ventricular hypertrophy) Obesity due to excess calories Osteoporosis Personal history of colonic polyps Positive fecal occult blood test Tubulovillous adenoma of colon Devices Implanted/Removed This Visit Notice: You have devices implanted this visit that may not be MRI compatible. Implanted Undefined Procedure Body Site Undefined CAUTERY ERBE UNIT 09/13/2024 CAUTERY ERBE UNIT 09/13/2024 Education Materials Colonoscopy Care After Surgery Please read the instructions outlined below and refer to this sheet in the next few weeks. These discharge instructions provide you with general information on caring for yourself after you leave the hospital. Your doctor may also give you specific instructions. While your treatment has been planned according to the most current medical practices available, unavoidable complications occasionally occur. If you have any problems or questions after discharge, please call your doctor. ACTIVITY You may resume your regular activity, but move at a slower pace for the next 24 hours. Take frequent rest periods for the next 24 hours. Walking will help get rid of the air and reduce the bloated feeling in your abdomen (belly). No driving for 24 hours (because of the anesthesia (medicine) used during the test). You may shower. Do not sign any important legal documents or operate any machinery for 24 hours (because of the anesthesia used during the test). NUTRITION Drink plenty of fluids. You may resume your normal diet as instructed by your doctor. Begin with a light meal and progress to your normal diet. Heavy or fried foods are harder to digest and may make you feel nauseated (sick to your stomach). Avoid alcoholic beverages for 24 hours or as instructed. MEDICATIONS You may resume your normal medications unless your doctor tells you otherwise. WHAT YOU CAN EXPECT TODAY Some feelings of bloating in the abdomen. Passage of more gas than usual. Spotting of blood in your stool or on the toilet paper. FOLLOW-UP Your doctor will discuss the results of your test with you. SEEK IMMEDIATE MEDICAL ATTENTION IF: There is more than a spotting of blood in your stool. There is abdominal distention (your abdomen is swollen). There is vomiting. You have a temperature over 101.5 F. There is abdominal pain or discomfort that is severe or gets worse throughout the day. Colon Polyps Colon polyps are tissue growths inside the colon, which is part of the large intestine. They are one of the types of polyps that can grow in the body. A polyp may be a round bump or a mushroom-shaped growth. You could have one polyp or more than one. Most colon polyps are noncancerous (benign). However, some colon polyps can become cancerous over time. Finding and removing the polyps early can help prevent this. What are the causes? The exact cause of colon polyps is not known. What increases the risk? The following factors may make you more likely to develop this condition: ??? Having a family history of colorectal cancer or colon polyps. ??? Being older than 45 years of age. ??? Being younger than 45 years of age and having a significant family history of colorectal cancer or colon polyps or a genetic condition that puts you at higher risk of getting colon polyps. ??? Having inflammatory bowel disease, such as ulcerative colitis or Crohn's disease. ??? Having certain conditions passed from parent to child (hereditary conditions), such as: ? Familial adenomatous polyposis (FAP). ? Thomas syndrome. ? Turcot syndrome. ? Peutz???Jeghers syndrome. ? MUTYH-associated polyposis (MAP). ??? Being overweight. ??? Certain lifestyle factors. These include smoking cigarettes, drinking too much alcohol, not getting enough exercise, and eating a diet that is high in fat and red meat and low in fiber. ??? Having had childhood cancer that was treated with radiation of the abdomen. What are the signs or symptoms? Many times, there are no symptoms. If you have symptoms, they may include: ??? Blood coming from the rectum during a bowel movement. ??? Blood in the stool (feces). The blood may be bright red or very dark in color. ??? Pain in the abdomen. ??? A change in bowel habits, such as constipation or diarrhea. How is this diagnosed? This condition is diagnosed with a colonoscopy. This is a procedure in which a lighted, flexible scope is inserted into the opening between the buttocks (anus) and then passed into the colon to examine the area. Polyps are sometimes found when a colonoscopy is done as part of routine cancer screening tests. How is this treated? This condition is treated by removing any polyps that are found. Most polyps can be removed during a colonoscopy. Those polyps will then be tested for cancer. Additional treatment may be needed depending on the results of testing. Follow these instructions at home: Eating and drinking ??? Eat foods that are high in fiber, such as fruits, vegetables, and whole grains. ??? Eat foods that are high in calcium and vitamin D, such as milk, cheese, yogurt, eggs, liver, fish, and broccoli. ??? Limit foods that are high in fat, such as fried foods and desserts. ??? Limit the amount of red meat, precooked or cured meat, or other processed meat that you eat, such as hot dogs, sausages, sue, or meat loaves. ??? Limit sugary drinks. Lifestyle ??? Maintain a healthy weight, or lose weight if recommended by your health care provider. ??? Exercise every day or as told by your health care provider. ??? Do not use any products that contain nicotine or tobacco, such as cigarettes, e-cigarettes, and chewing tobacco. If you need help quitting, ask your health care provider. ??? Do not drink alcohol if: ? Your health care provider tells you not to drink. ? You are , may be , or are planning to become . ??? If you drink alcohol: ? Limit how much you use to: ? 0???1 drink a day for women. ? 0???2 drinks a day for men. ? Know how much alcohol is in your drink. In the [place] one drink equals one 12 oz bottle of beer (355 mL), one 5 oz glass of wine (148 mL), or one 1??? oz glass of hard liquor (44 mL). General instructions ??? Take srhf-ogm-ytgrnii and prescription medicines only as told by your health care provider. ??? Keep all follow-up visits. This is important. This includes having regularly scheduled colonoscopies. Talk to your health care provider about when you need a colonoscopy. Contact a health care provider if: ??? You have new or worsening bleeding during a bowel movement. ??? You have new or increased blood in your stool. ??? You have a change in bowel habits. ??? You lose weight for no known reason. Summary ??? Colon polyps are tissue growths inside the colon, which is part of the large intestine. They are one type of polyp that can grow in the body. ??? Most colon polyps are noncancerous (benign), but some can become cancerous over time. ??? This condition is diagnosed with a colonoscopy. ??? This condition is treated by removing any polyps that are found. Most polyps can be removed during a colonoscopy. This information is not intended to replace advice given to you by your health care provider. Make sure you discuss any questions you have with your health care provider. Document Revised: 12/11/2020 Document Reviewed: 12/11/2020 [employer] Patient Education ??? 2023 [employer] Hemorrhoids Hemorrhoids are swollen veins that may form: ??? In the butt (rectum). These are called internal hemorrhoids. ??? Around the opening of the butt (anus). These are called external hemorrhoids. Most hemorrhoids do not cause very bad problems. They often get better with changes to your lifestyle and what you eat. What are the causes? Having trouble pooping (constipation) or watery poop (diarrhea). ??? Pushing too hard when you poop. ??? . ??? Being very overweight (obese). ??? Sitting for too long. ??? Riding a bike for a long time. ??? Heavy lifting or other things that take a lot of effort. ??? Anal sex. What are the signs or symptoms? Pain. ??? Itching or soreness in the butt. ??? Bleeding from the butt. ??? Leaking poop. ??? Swelling. ??? One or more lumps around the opening of your butt. How is this treated? In most cases, hemorrhoids can be treated at home. You may be told to: ??? Change what you eat. ??? Make changes to your lifestyle. If these treatments do not help, you may need to have a procedure done. Your doctor may need to: ??? Place rubber bands at the bottom of the hemorrhoids to make them fall off. ??? Put medicine into the hemorrhoids to shrink them. ??? Shine a type of light on the hemorrhoids to cause them to fall off. ??? Do surgery to get rid of the hemorrhoids. Follow these instructions at home: Medicines ??? Take coke-hfe-zagougz and prescription medicines only as told by your doctor. ??? Use creams with medicine in them or medicines that you put in your butt as told by your doctor. Eating and drinking ??? Eat foods that have a lot of fiber in them. These include whole grains, beans, nuts, fruits, and vegetables. ??? Ask your doctor about taking products that have fiber added to them (fibersupplements). ??? Take in less fat. You can do this by: ? Eating low-fat dairy products. ? Eating less red meat. ? Staying away from processed foods. ??? Drink enough fluid to keep your pee (urine) pale yellow. Managing pain and swelling ??? Take a warm-water bath (sitz bath) for 20 minutes to ease pain. Do this 3???4 times a day. You may do this in a bathtub. You may also use a portable sitz bath that fits over the toilet. ??? If told, put ice on the painful area. It may help to use ice between your warm baths. ? Put ice in a plastic bag. ? Place a towel between your skin and the bag. ? Leave the ice on for 20 minutes, 2???3 times a day. ??? If your skin turns bright red, take off the ice right away to prevent skin damage. The risk of damage is higher if you cannot feel pain, heat, or cold. General instructions ??? Exercise. Ask your doctor how much and what kind of exercise is best for you. ??? Go to the bathroom when you need to poop. Do not wait. ??? Try not to push too hard when you poop. ??? Keep your butt dry and clean. Use wet toilet paper or moist towelettes after you poop. ??? Do not sit on the toilet for a long time. Contact a doctor if: ??? You have pain and swelling that do not get better with treatment. ??? You have trouble pooping. ??? You cannot poop. ??? You have pain or swelling outside the area of the hemorrhoids. Get help right away if: ??? You have bleeding from the butt that will not stop. This information is not intended to replace advice given to you by your health care provider. Make sure you discuss any questions you have with your health care provider. Document Revised: 05/05/2023 Document Reviewed: 05/05/2023 [employer] Patient Education ??? 2023 [employer] Common Emergency Awareness Tips IS IT A STROKE? Act FAST and Check for these signs: FACE Does the face look uneven? ARM Does one arm drift down? SPEECH Does their speech sound strange? TIME Call at any sign of stroke Heart Attack Signs Chest discomfort: Most heart attacks involve discomfort in the center of the chest and lasts more than a few minutes, or goes away and comes back. It can feel like uncomfortable pressure, squeezing, fullness or pain. Discomfort in upper body: Symptoms can include pain or discomfort in one or both arms, back, neck, jaw or stomach. Shortness of breath: With or without discomfort. Other signs: Breaking out in a cold sweat, nausea, or lightheaded. Remember, MINUTES DO MATTER. If you experience any of these heart attack warning signs, call to get immediate medical attention! Patient Survey You may receive a survey in the mail asking you about your stay with us. We want to hear from you, please share your experience with us by completing your survey. Thank you for choosing [facility]. Geovanna Award Nomination The GEOVANNA (Diseases Attacking the Immune SYstem) Award is an international recognition program that honors and celebrates the skillful, compassionate care nurses provide every day. Anyone who experiences or observes amazing care being provided by a nurse is encouraged to submit a nomination. To nominate your nurse, use your smart phone to scan the QR code below. Patient Portal You may access all of your results and other medical record information on our secure patient portal. If you are not signed up for this yet, please contact [employer] at [phone] to get signed up today. Patient Name: NEREIDA AGOSTO I have received this information and my questions have been answered. Patient/Copier Field Service Technician Name: Patient/Copier Field Service Technician Signature: Relationship to Patient: Witness Name/Signature: Date: Result Comment: Electronical ly Signed By: Celio BOWER, Renetta Aquino\.br\Date and Time Signed: 09/13/24 12:22 EST PATIENT EDUCATION - TEXT Observed: 09/13 12:22 PM Status: C Source: [facility] Patient Education - Text Colonoscopy Care After Surgery Please read the instructions outlined below and refer to this sheet in the next few weeks. These discharge instructions provide you with general information on caring for yourself after you leave the hospital. Your doctor may also give you specific instructions. While your treatment has been planned according to the most current medical practices available, unavoidable complications occasionally occur. If you have any problems or questions after discharge, please call your doctor. ACTIVITY You may resume your regular activity, but move at a slower pace for the next 24 hours. Take frequent rest periods for the next 24 hours. Walking will help get rid of the air and reduce the bloated feeling in your abdomen (belly). No driving for 24 hours (because of the anesthesia (medicine) used during the test). You may shower. Do not sign any important legal documents or operate any machinery for 24 hours (because of the anesthesia used during the test). NUTRITION Drink plenty of fluids. You may resume your normal diet as instructed by your doctor. Begin with a light meal and progress to your normal diet. Heavy or fried foods are harder to digest and may make you feel nauseated (sick to your stomach). Avoid alcoholic beverages for 24 hours or as instructed. MEDICATIONS You may resume your normal medications unless your doctor tells you otherwise. WHAT YOU CAN EXPECT TODAY Some feelings of bloating in the abdomen. Passage of more gas than usual. Spotting of blood in your stool or on the toilet paper. FOLLOW-UP Your doctor will discuss the results of your test with you. SEEK IMMEDIATE MEDICAL ATTENTION IF: There is more than a spotting of blood in your stool. There is abdominal distention (your abdomen is swollen). There is vomiting. You have a temperature over 101.5 F. There is abdominal pain or discomfort that is severe or gets worse throughout the day. Gastroenterology Hemorrhoids Hemorrhoids are swollen veins that may form: ??? In the butt (rectum). These are called internal hemorrhoids. ??? Around the opening of the butt (anus). These are called external hemorrhoids. Most hemorrhoids do not cause very bad problems. They often get better with changes to your lifestyle and what you eat. What are the causes? Having trouble pooping (constipation) or watery poop (diarrhea). ??? Pushing too hard when you poop. ??? . ??? Being very overweight (obese). ??? Sitting for too long. ??? Riding a bike for a long time. ??? Heavy lifting or other things that take a lot of effort. ??? Anal sex. What are the signs or symptoms? Pain. ??? Itching or soreness in the butt. ??? Bleeding from the butt. ??? Leaking poop. ??? Swelling. ??? One or more lumps around the opening of your butt. How is this treated? In most cases, hemorrhoids can be treated at home. You may be told to: ??? Change what you eat. ??? Make changes to your lifestyle. If these treatments do not help, you may need to have a procedure done. Your doctor may need to: ??? Place rubber bands at the bottom of the hemorrhoids to make them fall off. ??? Put medicine into the hemorrhoids to shrink them. ??? Shine a type of light on the hemorrhoids to cause them to fall off. ??? Do surgery to get rid of the hemorrhoids. Follow these instructions at home: Medicines ??? Take wecn-uye-pkspfzt and prescription medicines only as told by your doctor. ??? Use creams with medicine in them or medicines that you put in your butt as told by your doctor. Eating and drinking ??? Eat foods that have a lot of fiber in them. These include whole grains, beans, nuts, fruits, and vegetables. ??? Ask your doctor about taking products that have fiber added to them (fibersupplements). ??? Take in less fat. You can do this by: ? Eating low-fat dairy products. ? Eating less red meat. ? Staying away from processed foods. ??? Drink enough fluid to keep your pee (urine) pale yellow. Managing pain and swelling ??? Take a warm-water bath (sitz bath) for 20 minutes to ease pain. Do this 3?4 times a day. You may do this in a bathtub. You may also use a portable sitz bath that fits over the toilet. ??? If told, put ice on the painful area. It may help to use ice between your warm baths. ? Put ice in a plastic bag. ? Place a towel between your skin and the bag. ? Leave the ice on for 20 minutes, 2?3 times a day. ??? If your skin turns bright red, take off the ice right away to prevent skin damage. The risk of damage is higher if you cannot feel pain, heat, or cold. General instructions ??? Exercise. Ask your doctor how much and what kind of exercise is best for you. ??? Go to the bathroom when you need to poop. Do not wait. ??? Try not to push too hard when you poop. ??? Keep your butt dry and clean. Use wet toilet paper or moist towelettes after you poop. ??? Do not sit on the toilet for a long time. Contact a doctor if: ??? You have pain and swelling that do not get better with treatment. ??? You have trouble pooping. ??? You cannot poop. ??? You have pain or swelling outside the area of the hemorrhoids. Get help right away if: ??? You have bleeding from the butt that will not stop. This information is not intended to replace advice given to you by your health care provider. Make sure you discuss any questions you have with your health care provider. Document Revised: 05/05/2023 Document Reviewed: 05/05/2023 [employer] Patient Education ? 2023 [employer]Oncology Colon Polyps Colon polyps are tissue growths inside the colon, which is part of the large intestine. They are one of the types of polyps that can grow in the body. A polyp may be a round bump or a mushroom-shaped growth. You could have one polyp or more than one. Most colon polyps are noncancerous (benign). However, some colon polyps can become cancerous over time. Finding and removing the polyps early can help prevent this. What are the causes? The exact cause of colon polyps is not known. What increases the risk? The following factors may make you more likely to develop this condition: ??? Having a family history of colorectal cancer or colon polyps. ??? Being older than 45 years of age. ??? Being younger than 45 years of age and having a significant family history of colorectal cancer or colon polyps or a genetic condition that puts you at higher risk of getting colon polyps. ??? Having inflammatory bowel disease, such as ulcerative colitis or Crohn's disease. ??? Having certain conditions passed from parent to child (hereditary conditions), such as: ? Familial adenomatous polyposis (FAP). ? Thomas syndrome. ? Turcot syndrome. ? Peutz?Jeghers syndrome. ? MUTYH-associated polyposis (MAP). ??? Being overweight. ??? Certain lifestyle factors. These include smoking cigarettes, drinking too much alcohol, not getting enough exercise, and eating a diet that is high in fat and red meat and low in fiber. ??? Having had childhood cancer that was treated with radiation of the abdomen. What are the signs or symptoms? Many times, there are no symptoms. If you have symptoms, they may include: ??? Blood coming from the rectum during a bowel movement. ??? Blood in the stool (feces). The blood may be bright red or very dark in color. ??? Pain in the abdomen. ??? A change in bowel habits, such as constipation or diarrhea. How is this diagnosed? This condition is diagnosed with a colonoscopy. This is a procedure in which a lighted, flexible scope is inserted into the opening between the buttocks (anus) and then passed into the colon to examine the area. Polyps are sometimes found when a colonoscopy is done as part of routine cancer screening tests. How is this treated? This condition is treated by removing any polyps that are found. Most polyps can be removed during a colonoscopy. Those polyps will then be tested for cancer. Additional treatment may be needed depending on the results of testing. Follow these instructions at home: Eating and drinking ??? Eat foods that are high in fiber, such as fruits, vegetables, and whole grains. ??? Eat foods that are high in calcium and vitamin D, such as milk, cheese, yogurt, eggs, liver, fish, and broccoli. ??? Limit foods that are high in fat, such as fried foods and desserts. ??? Limit the amount of red meat, precooked or cured meat, or other processed meat that you eat, such as hot dogs, sausages, sue, or meat loaves. ??? Limit sugary drinks. Lifestyle ??? Maintain a healthy weight, or lose weight if recommended by your health care provider. ??? Exercise every day or as told by your health care provider. ??? Do not use any products that contain nicotine or tobacco, such as cigarettes, e-cigarettes, and chewing tobacco. If you need help quitting, ask your health care provider. ??? Do not drink alcohol if: ? Your health care provider tells you not to drink. ? You are , may be , or are planning to become . ??? If you drink alcohol: ? Limit how much you use to: ? 0?1 drink a day for women. ? 0?2 drinks a day for men. ? Know how much alcohol is in your drink. In the [place] one drink equals one 12 oz bottle of beer (355 mL), one 5 oz glass of wine (148 mL), or one 1? oz glass of hard liquor (44 mL). General instructions ??? Take ywxb-mhc-ytswkox and prescription medicines only as told by your health care provider. ??? Keep all follow-up visits. This is important. This includes having regularly scheduled colonoscopies. Talk to your health care provider about when you need a colonoscopy. Contact a health care provider if: ??? You have new or worsening bleeding during a bowel movement. ??? You have new or increased blood in your stool. ??? You have a change in bowel habits. ??? You lose weight for no known reason. Summary ??? Colon polyps are tissue growths inside the colon, which is part of the large intestine. They are one type of polyp that can grow in the body. ??? Most colon polyps are noncancerous (benign), but some can become cancerous over time. ??? This condition is diagnosed with a colonoscopy. ??? This condition is treated by removing any polyps that are found. Most polyps can be removed during a colonoscopy. This information is not intended to replace advice given to you by your health care provider. Make sure you discuss any questions you have with your health care provider. Document Revised: 12/11/2020 Document Reviewed: 12/11/2020 [employer] Patient Education ? 2023 [employer] OPERATIVE REPORT Observed: 09/13/2024 11:43 AM Status: F Source: [facility] Operative Report Patient: NEREIDA AGOSTO Age: 84 years Sex: Female : 1940 Associated Diagnoses: None Author: Harmony Bettencourt MD Pre-Procedure Procedure Date 09/13/2024 11:43:00 . Procedure Type: Colonoscopy with removal of tumor(s), polyp(s), or other lesion(s) by cold snare technique, endoscopic mucosal resection. Procedure provider Performed by Harmony Bettencourt MD. Current history and physical Documented on chart. Colonoscopy ([id number]) on 04/26/2024 at 84 Years. Colonoscopy ([id number]) on 02/24/2023 at 82 Years. Tubal ligation ([id number]). Closed fracture of hip ([id number]). Cardiac fluoroscopy ([id number]).. Past Medical History No active or resolved past medical history items have been selected or recorded.. Family History Asthma Mother Renal cell carcinoma Brother . Procedure History Colonoscopy ([id number]) on 04/26/2024 at 84 Years. Colonoscopy ([id number]) on 02/24/2023 at 82 Years. Tubal ligation ([id number]). Closed fracture of hip (578049040). Cardiac fluoroscopy ([id number]).. Colorectal neoplasm risk assessment High risk Previous history of polyps. . Informed Consent After discussing the rationale, risks and benefits, and alternatives to this procedure, the patient provided signed consent for the procedure. Pre-procedure diagnosis: History of colon polyps. Medications (Selected) Inpatient Medications Ordered Lactated Ringers IV Corina 1000 mL 1,000 mL: 1,000 mL, IV, 100 mL/hr, Routine, Start date 09/13/24 11:12:00 EST, 10 hour(s), Total volume (mL): 1,000, 73.5 kg, 1.73, m2 Sodium Chloride 0.9% IV Corina 1000 mL 1,000 mL: 1,000 mL, IV, 20 mL/hr, Routine, Start date 09/13/24 6:42:00 EST, 50 hour(s), Total volume (mL): 1,000 Documented Medications Documented Eliquis 5 mg oral tablet: 5 mg = 1 tab(s), Oral, BID, Unknown, Refills(s) 0, Blood Thinner Synthroid 50 mcg Tab: 50 mcg = 1 tab(s), Oral, Daily, Unknown, Refills(s) 0, Thyroid alendronate 70 mg Tab: 70 mg = 1 tab(s), Oral, qWeek, Unknown, 1 Refill(s), Refills(s) 0 aspirin 81 mg Oral EC Tab: 81 mg = 1 tab(s), Oral, Daily, Refills(s) 0, Prophylaxis carvedilol 12.5 mg Tab: 12.5 mg = 1 tab(s), Oral, BID, Refills(s) 0, High blood pressure furosemide 20 mg Tab: 20 mg = 1 tab(s), Oral, Daily, Unknown, Refills(s) 0, diuretic/water pill lisinopril 20 mg Tab: 20 mg = 1 tab(s), Oral, Daily, Unknown, Refills(s) 0, High blood pressure meclizine 25 mg Tab: 25 mg = 1 tab(s), Oral, BID, Refills(s) 0 potassium chloride 20 mEq ER Tab: 20 mEq = 1 tab(s), Oral, Daily, Refills(s) 0, Prophylaxis Anticoagulant/antiplatelet None. ASA Classification: Class III. . Monitoring: See anesthesia record. . Procedure The procedure was performed in the hospital. See anesthesia record for sedation given during procedure. The patient was positioned starting in the left lateral decubitus position. Endoscope type used was an adult-size. The endoscope was lubricated then introduced through the anus. The scope was advanced to the terminal ileum. No difficulties encountered during the procedure. The bowel preparation quality was good and was adequate (see polyps greater than or equal to 6 millimeters). The patient tolerated the procedure well. Time to Cecum: 2 min Withdrawal time 15 min Last colonoscopy: 2023 Findings 1. Normal rectal exam 2. 8 mm sessile polyp seen in the ascending colon at the previous polypectomy site resected with EMR technique after raising this up with everlift (7 cc) and removing using hot snare. The margins were cauterized using the tip of the snare. The defect was closed using 1 Endo Clip 3. Sessile polyp measuring 4 mm in the sigmoid colon s/p resection using cold snare 4. Internal hemorrhoids 5. Normal terminal ileum Images Procedure images: Rec1_hd_video___[id number].jpg Rec1_hd_video__[id number].jpg Rec1_hd_video__[id number].jpg Rec1_hd_video__[id number].jpg Rec1_hd_video_T1_[id number].jpg Rec1_hd_video__[id number].jpg Rec1_hd_video__[id number].jpg Rec1_hd_video___[id number].jpg Rec1_hd_video__T1_[id number].jpg Rec1_hd_video__[id number].jpg Rec1_hd_video__[id number].jpg Rec1_hd_video__[id number].jpg Rec1_hd_video_T1_[id number]_12_[id number].jpg . Post-Procedure Complications: none. Estimated blood loss: Minimal. Specimens: sent to pathology. Devices/ implants: none left in place. Impression and Plan rectal polyp status post resection using EMR technique Sigmoid colon polyp???removed as above Internal hemorrhoids Recommendations: Repeat colonoscopy:: In 1 year. Follow-up:: in clinic for 1-2 weeks when pathology is available. Diet:: Previous. Medication resumption:: Continue current medications, Avoid NSAIDs. Return to activities:: After 24 hours. Education and Follow-up: Counseled: Patient, Family. Result Comment: Electronical ly Signed By: Rut AHMADI, Harmony Jay\.br\Date and Time Signed: 09/13/24 11:47 EST Other Comment: Missing Attac hment - attachment storage system not supported [id number] Can be viewed in source system Missing Attachment - attachment storage system not supported [id number] Can be viewed in source systemMissing Attachment - attachment storage system not supported [id number] Can be viewed in source systemMissing Attachment - attachment storage system not supported [id number] Can be viewed in source systemMissing Attachment - attachment storage system not supported [id number] Can be viewed in source systemMissing Attachment - attachment storage system not supported [id number] Can be viewed in source systemMissing Attachment - attachment storage system not supported [id number] Can be viewed in source systemMissing Attachment - attachment storage system not supported [id number] Can be viewed in source systemMissing Attachment - attachment storage system not supported [id number] Can be viewed in source systemMissing Attachment - attachment storage system not supported [id number] Can be viewed in source systemMissing Attachment - attachment storage system not supported [id number] Can be viewed in source systemMissing Attachment - attachment storage system not supported [id number] Can be viewed in source systemMissing Attachment - attachment storage system not supported [id number] Can be viewed in source system SURGICAL PATHOLOGY REPORT Observed: 04/2025 11:37 AM Status: F Source: [address] [place] [address]- Surgical Pathology Report Collected Date/Time: 09/13/2024 11:37 EST Pathologist: Isaura AHMADI, Christopher Herrera Received Date/Time: 09/13/2024 13:54 EST Rut AHMADI, Harmony Bettencourt MD, Harmony Gilmore Surgical Pathology Report - 09/15/2024 16:38 EST - Auth (Verified) Final Diagnosis A: POLYP, ASCENDING COLON, POLYPECTOMY: FRAGMENTED ADENOMATOUS COLONIC MUCOSAL POLYP, TUBULAR ADENOMA B: POLYP, SIGMOID COLON, POLYPECTOMY: HYPERPLASTIC COLONIC GLANDULAR MUCOSAL POLYP (Electronic Signature) Christopher Delarosa MD 09/15/2024 16:38 Clinical Information History of colon cancer Pre-Op Diagnosis: History of colon cancer Procedure: Colonoscopy Post-Op Diagnosis: 1. Rectal polyp status post resection using EMR technique 2. Sigmoid colon polyp -removed 3. Internal hemorrhoids Specimen(s) Received A.Ascending colon polyp B.Sigmoid colon polyp Gross Description A: Received in formalin labeled with patient name, number, and ascending colon polyp are multiple fragments of rodriguez/pink tissue ranging from less than 0.1 cm up to 0.1 cm. Specimen is entirely submitted in one cassette. B: Received in formalin labeled with patient name, number, and sigmoid colon polyp is a single fragment of rodriguez/pink tissue measuring 0.6 x 0.3 x 0.1 cm. Specimen is entirely submitted in one cassette. (DC) DC:[facility] Microscopic Description Microscopic examination performed unless gross only specified. Performed By: #### [id number] # ### [facility] [address] [place] [address] SURGICAL PATHOLOGY REPORT Observed: 04/2025 11:37 AM Status: F Source: [place] [address]- Surgical Pathology Report Collected Date/Time: 09/13/2024 11:37 EST Pathologist: Christopher Delarosa MD Received Date/Time: 09/13/2024 13:54 EST Rut AHMADI, Harmony Bettencourt MD, Harmony Gilmore Surgical Pathology Report - 09/15/2024 16:38 EST - Auth (Verified) Final Diagnosis A: POLYP, ASCENDING COLON, POLYPECTOMY: FRAGMENTED ADENOMATOUS COLONIC MUCOSAL POLYP, TUBULAR ADENOMA B: POLYP, SIGMOID COLON, POLYPECTOMY: HYPERPLASTIC COLONIC GLANDULAR MUCOSAL POLYP (Electronic Signature) Christopher Delarosa MD 09/15/2024 16:38 Clinical Information History of colon cancer Pre-Op Diagnosis: History of colon cancer Procedure: Colonoscopy Post-Op Diagnosis: 1. Rectal polyp status post resection using EMR technique 2. Sigmoid colon polyp -removed 3. Internal hemorrhoids Specimen(s) Received A.Ascending colon polyp B.Sigmoid colon polyp Gross Description A: Received in formalin labeled with patient name, number, and ascending colon polyp are multiple fragments of rodriguez/pink tissue ranging from less than 0.1 cm up to 0.1 cm. Specimen is entirely submitted in one cassette. B: Received in formalin labeled with patient name, number, and sigmoid colon polyp is a single fragment of rodriguez/pink tissue measuring 0.6 x 0.3 x 0.1 cm. Specimen is entirely submitted in one cassette. (DC) DC:[facility] Microscopic Description Microscopic examination performed unless gross only specified. Performed By: #### [id number] # ### [facility] [address] [place] [address] MAIN OR PACU I RECORD Observed: 09/13/19 11:22 AM Status: F Source: [facility] Main OR PACU I Record PACU Phase I Document Type FT Summary Primary Physician: Harmony Bettencourt MD Finalized Date/Time: 09/13/24 13:11:22 Pt. Name: NEREIDA AGOSTO/Sex: 1940 Female Med Rec #: [id number] Physician: Harmony Bettencourt MD Financial #: [id number] Pt. Type: O Room/Bed: / Admit/Disch: 09/13/24 09:11:07 - Institution: Case Times PACU I FT Pre-Care Text: Identifies barriers to communication and implements measures to provide psychological support Develops individualized plan of care, and ensures continuity of care Maintains patient's dignity and privacy, and maintains patient confidentiality Identifies and reports philosophical, cultural, and spiritual beliefs and values Identifies individual values and wishes concerning care Implements aseptic technique, and administers prescribed antibiotic therapy and immunizing agents as ordered Evaluates postoperative tissue perfusion Implements thermoregulation measures, and monitors body temperature Evaluates postoperative respiratory status Evaluates postoperative cardiac status Evaluates postoperative neurological status Assesses pain control, collaborated in initiating patient-controlled analgesia and implements alternative methods of pain control Verifies allergies, administers prescribed medications and solutions, evaluates response to medications Entry 1 In PACU I 09/13/24 11:43:00 Discharge from PACU 09/13/24 12:43:00 I Outcomes Met? Yes Last Modified By: Renetta Pickens RN 09/13/24 13:11:12 Post-Care Text: The patient demonstrates knowledge of the expected response to the operative or invasive procedure The patient's care is consistent with the individualized perioperative plan of care The patient's right to privacy is maintained The patient's value system, lifestyle, ethnicity, and culture are considered, respected, and incorporated into the perioperative plan of care The patient participates in decisions affecting his or her perioperative plan of care The patient is free from signs and symptoms of infection The patient has wound/tissue perfusion consistent with or improved from baseline levels established preoperatively The patient is at or returning to normothermia at the conclusion of the immediate postoperative period The patient's respiratory function is consistent with or improved from baseline levels established preoperatively The patient's cardiovascular status is consistent with or improved from baseline levels established preoperatively The patient's cardiovascular status is consistent with or improved from baseline levels established preoperatively The patient demonstrates and/or reports adequate pain control throughout the perioperative period The patient received appropriate medication(s), safely administered during the perioperative period Acuity Level PACU I FT Entry 1 Start Time 09/13/24 11:43:00 Stop Time 09/13/24 12:43:00 Acuity Level Acuity Level I Last Modified By: Renetta Pickens RN 09/13/24 13:11:19 Finalized By: Renetta Pickens RN Document Signatures Signed By: Renetta Pickens RN 09/13/24 13:11 MAIN OR INTRAOPERATIVE RECORD Observed: 09/13/2024 11:22 AM Status: C Source: [facility] Main OR Intraoperative Recor d IntraOp Document Type FT Summary Primary Physician: Harmony Bettencourt MD Finalized Date/Time: 09/14/24 14:42:48 Pt. Name: NEREIDA AGOSTO D.O.B./Sex: 1940 Female Med Rec #: [id number] Physician: Harmony Bettencourt MD Financial #: [id number] Pt. Type: O Room/Bed: / Admit/Disch: 09/13/24 09:11:07 - 09/13/24 23:59:59 Institution: Case Times FT Entry 1 Patient Times In Room 09/13/24 11:15:00 Out Room 09/13/24 11:42:00 Procedure Times Start 09/13/24 11:22:00 Stop 09/13/24 11:39:00 Anesthesia Times Start 09/13/24 11:15:00 Stop 09/13/24 11:42:00 Time at Cecum 09/13/24 11:24:00 Last Modified By: Bruce BOWER, Shawn Llanos 09/13/24 11:54:00 General Comments: 09/14/24 Chart opened to review and send charges [facility] Case Attendance FT Entry 1 Entry 2 Entry 3 Case Attendee Hien MEREDITH, Freddie Bettencourt MD, Harmony Barrera RN, Shawn Llanos Role Performed Anesthesiologist Surgeon - Primary Conference Services Manager - Primary Inventory Taker Time In 09/13/24 11:15:00 09/13/24 11:15:00 09/13/24 11:15:00 Time Out 09/13/24 11:42:00 09/13/24 11:42:00 09/13/24 11:42:00 Procedure COLONOSCOPY(.) COLONOSCOPY(.) COLONOSCOPY(.) Comments Dr. Whalen supervising case Last Modified By: Bruce RN, Shawn Barrera RN, Shawn Barrera RN, Shawn Llanos 09/13/24 11:54:01 09/13/24 11:54:01 09/13/24 11:54:01 Entry 4 Entry 5 Case Attendee Eliezer BAIG, Reymundo Bradshaw Role Performed Scrub - Primary Staff - Other Time In 09/13/24 11:15:00 09/13/24 11:28:00 Time Out 09/13/24 11:42:00 09/13/24 11:42:00 Procedure COLONOSCOPY(.) COLONOSCOPY(.) Comments help in room Last Modified By: Bruce BOWER, Shawn Barrera RN, Shawn Llanos 09/13/24 11:54:01 09/13/24 11:54:01 Perioperative Protocols FT Pre-Care Text: Implements protective measures prior to operative or invasive procedure, confirms identity before the operative or invasive procedure, verifies operative procedure, surgical site, and laterality Entry 1 Procedure(s) COLONOSCOPY(.) Patient Identity Birthday, ID Band Verified (select at Check, Patient least 2): Participation Consents / H and P Anesthesia Consent, Operative Site N/A Verified H&P, Surgery/Procedure Marking Verified Consent Surgical Site No Laterality Verified n/a Verified Procedure Verified Yes Correct Patient Yes Position Verified Availability Equipment, Medication Prep Dry n/a Verified (If Applicable) PreOp Antibiotic No Time Out Freddie Hoskins, Given Participants Rut AHMADI, Harmony Jay, Shawn Barrera RN, Schafer CST, Gini Santo Time Out Complete 09/13/24 11:20:00 Outcomes Met? Yes Last Modified By: Shawn Barrera RN 09/13/24 11:23:42 Post-Care Text: The patient is free from signs and symptoms of injury caused by extraneous objects Allergy Information FT Pre-Care Text: Verifies allergies Entry 1 Allergies Reviewed? Yes Allergies Reviewed Self/Patient With Outcomes Met? Yes Last Modified By: Shawn Barrera RN 09/13/24 11:22:55 Post-Care Text: The patient received appropriate medication(s) safely administered during the perioperative period Surgical Procedures FT Entry 1 Procedure Description Procedure COLONOSCOPY Modifiers . Surgeon Description Colonoscopy with ascending colon polypectomy using lifting (everlift), hot snare removal, and hemoclip x1 applied to polypectomy site, sigmoid colon polypectomy Primary Procedure Yes Primary Surgeon Rut AHMADI, Harmony Jay Start 09/13/24 11:22:00 Stop 09/13/24 11:39:00 Anesthesia Type General Surgical Service Gastroenterology Wound Class 2 - Clean-Contaminated Last Modified By: Shawn Barrera RN 09/13/24 11:40:24 General Case Data FT Pre-Care Text: Classifies surgical wound, implements aseptic technique, initiates traffic control Entry 1 Case Information OR ENDO 1 FT Case Level Level 2 Wound Class 2 - Clean-Contaminated Specialty Gastroenterology ASA Class 3 Preop Diagnosis History of colon cancer Postop Same As Preop No Postop Diagnosis Ascending colon polyp, Outcomes Met? Yes Sigmoid colon polyp, Internal hemorrhoids Last Modified By: Shawn Barrera RN 09/13/24 11:54:31 Post-Care Text: The patient is free from signs and symptoms of infection Skin Assessment (Pre Procedure) FT Pre-Care Text: Implements protective measures to prevent skin/ tissue injury due to thermal or mechanical sources Evaluates for signs and symptoms of physical injury to skin and tissue Entry 1 Skin Integrity Dry, Warm Skin Abnormality No Outcomes Met? Yes Last Modified By: Shawn Barrera RN 09/13/24 11:24:10 Post-Care Text: The patient is free from signs and symptoms of injury caused by extraneous objects Patient Positioning FT Pre-Care Text: Identifies physical alterations that require additional precautions for procedure-specific positioning, verifies presence of prosthetics or corrective devices, positions the patient, evaluates the patient for signs and symptoms of injury as a result of positioning Entry 1 Procedure COLONOSCOPY(.) Body Position Lateral, right side up Feet Uncrossed? Yes Left Arm Position Resting at Side Right Arm Position Resting at Side Left Leg Position Extended Right Leg Position Extended Positioning Device Pillow Under Head Large, Safety Strap Press Points Checked Yes By Shawn Barrera RN Outcomes Met? Yes Last Modified By: Shawn Barrera RN 09/13/24 11:24:16 Post-Care Text: The patient is free from signs and symptoms of injury related to positioning Patient Care Devices FT Pre-Care Text: Implements protective measures to prevent skin/ tissue injury due to thermal or mechanical sources Entry 1 Entry 2 Entry 3 Equipment Type ENDOSCOPY VIDEO SYSTEM MONITOR CHARGE SURGERY CAUTERY ERBE UNIT Equipment Number [id number] E1 Equipment Setting Outcomes Met? Yes Yes Yes Last Modified By: Shawn Barrera RN, RN, Shawn Medina RN 09/13/24 11:24:28 09/13/24 11:24:28 09/13/24 11:31:47 Post-Care Text: The patient is free from signs and symptoms of injury caused by extraneous objects Transport To OR FT Pre-Care Text: Transports according to individual needs. Evaluates for signs and symptoms of skin and tissue injury as a result of transfer or transport Entry 1 Via Cart By Shawn Barrera RN Safety Precautions Safety Strap, Side Outcomes Met? Yes Rails Up Last Modified By: Shawn Barrera RN 09/13/24 11:24:35 Post-Care Text: The patient is free from signs and symptoms of injury related to transfer/transport Cautery FT Pre-Care Text: Implements protective measures to prevent injury due to electrical sources, and evaluates for signs and symptoms of electrical injury Entry 1 ESU Identification ESU Type CAUTERY ERBE UNIT Equipment Number E1 ESU Settings ESU Grounding Pad Site Right Thigh Hair Removal Pad No Site Pre Pad Site Clear and Intact Post Pad Site Clear and Intact Condition Condition Grounding Pad Uribe, Micala E Placed By Outcomes Met? Yes Last Modified By: Shawn Barrera RN 09/13/24 11:31:43 Post-Care Text: The patient if free from signs and symptoms of electrical injury General Comments: ERBE setting placed to jus/nithya MSRN Departure From OR FT Pre-Care Text: Transports according to individual needs. Evaluates for signs and symptoms of skin and tissue injury as a result of transfer or transport. Entry 1 Via Cart Safety Precautions Safety Strap, Side Rails Up PostOp Destination PACU Transported By Shawn Barrera RN Patient Status Stable Report Given Renetta Pickens RN To/Hand Off Communication Skin. Condition Intact, [place], Warm, & Dry Airway Maintenance Oxygen in Use? No Airway Device N/A Outcomes Met? Yes Last Modified By: Shawn Barrera RN 09/13/24 11:54:09 Post-Care Text: The patient is free from signs and symptoms of injury related to transfer/transport General Comments: Report given to PACU nurse MSRN Medication Administration FT Pre-Care Text: Verifies allergies, administers prescribed medications and solutions, administers prescribed antibiotic therapy and immunizing agents as ordered, evaluates response to medications Administers prescribed medications and solutions Entry 1 Expiration Date Yes Outcomes Met? Yes Verified Last Modified By: Shawn Barrera RN 09/13/24 11:24:56 Post-Care Text: The patient received appropriate medication(s) safely administered during the perioperative period For [place] please see scanned medication reconcilliation form for medications used at the field during the procedure. Cultures & Specimens FT Pre-Care Text: Manages specimen handling and disposition Manages culture specimen collection Entry 1 Cultures Ordered n/a Specimens Ordered Yes Specimen Disposition Designated OR Area Frozen Section Times Outcomes Met? Yes Last Modified By: Shawn Barrera RN 09/13/24 11:29:59 Post-Care Text: The patient is free from signs and symptoms of injury caused by extraneous objects The patient is free from signs and symptoms of infection Sign Out FT Entry 1 Before Patient Leaves OR Nurse verbally Yes Nurse verbally n/a confirms with the confirms with the team the name of team that the procedure(s) instrument, sponge, recorded and needle counts are correct (or N/A) Nurse verbally Yes Nurse verbally Yes confirms with the confirms with the team how the team whether there specimen is labeled are any equipment (including patient problems to be name), if applicable addressed Sign Out Complete 09/13/24 11:40:00 Last Modified By: Shawn Barrera RN 09/13/24 11:40:18 Case Comments <None> Finalized By: Agnieszka Schuster CST Document Signatures Signed By: Shawn Barrera RN 09/13/24 11:54 Agnieszka Schuster CST 09/14/24 14:42 H&P UPDATE Observed: 09/13/2024 11:16 AM Status: F Source: [facility] H&P Update Patient: NEREIDA AGOSTO Age: 84 years Sex: Female : 1940 Associated Diagnoses: None Author: Harmony Bettencourt MD Preoperative Information Chief compliant/Indication for procedure: Recurrent cecal polyp Chief Complaint as above Review of Systems All systems reviewed, negative except as mentioned above Physical Examination Vital Signs (last 24 hrs) Last Charted Temp Temporal L 36 DegC (SEP 13:33) Heart Rate Monitored 82 bpm (SEP 13:33) Resp Rate 21 br/min (SEP 13:33) SBP 131 mmHg (SEP 13:33) DBP 78 mmHg (SEP 13:33) Weight 73.5 kg (SEP 13:32) BMI 34.01 (SEP 13:32) General: in Nad Abdomen: Soft, NTND Impression and Plan Diagnosis: Recurrent cecal polyp colonoscopy PROGRESS NOTE-PHYSICIAN Observed: 2024 11:11 AM Status: F Source: [facility] Progress Note-Physician Patient: NEREIDA AGOSTO Age: 84 years Sex: Female : 1940 Associated Diagnoses: None Author: Jim Whalen Jr, DO Preoperative Information Anesthesia Preop Info: Time patient last ate or drank 09/13/2024 00:00:00. Anesthesia history: Patient history: None. Family history+: None. Informed consent: Signed by patient. Re-evaluation prior to induction: Initial evaluation reviewed: No significant change. Review of Systems Eye: Negative except as documented in history of present illness. Ear/Nose/Mouth/Throat: Negative except as documented in history of present illness. Respiratory: Negative except as documented in history of present illness. Cardiovascular: Negative except as documented in history of present illness. Musculoskeletal: Negative except as documented in history of present illness. Neurologic: Negative except as documented in history of present illness. Health Status Allergies: Allergic Reactions (Selected) Severity Not Documented Sulfa drugs- Unknown. Problem list: All Problems Osteoporosis / SNOMED CT 093664519 / Confirmed Positive fecal occult blood test / SNOMED CT 84090891 / Confirmed Obesity due to excess calories / SNOMED CT 6499010555 / Confirmed LVH (left ventricular hypertrophy) / SNOMED CT 61317618 / Confirmed Left atrial enlargement / SNOMED CT 8597046274 / Confirmed Hypothyroidism / SNOMED CT 97813309 / Confirmed HTN (hypertension) / SNOMED CT 1846083202 / Confirmed Personal history of colonic polyps / SNOMED CT 3532349531 / Confirmed History of colon cancer / SNOMED CT 3512487505 / Confirmed Lower extremity edema / SNOMED CT 688911104 / Confirmed Congestive heart failure / SNOMED CT 43874507 / Confirmed Cardiomyopathy / SNOMED CT 478661681 / Confirmed Cardiomegaly / SNOMED CT 32726924 / Confirmed BMI 32.0-32.9,adult / SNOMED CT 541768834 / Confirmed A-fib / SNOMED CT 66632290 / Confirmed Aortic valve regurgitation / SNOMED CT 870299249 / Confirmed Tubulovillous adenoma of colon / SNOMED CT 9623360904 / Confirmed Histories Procedure history: Colonoscopy (366502045) on 04/26/2024 at 84 Years. Colonoscopy (069862601) on 02/24/2023 at 82 Years. Tubal ligation (985191614). Closed fracture of hip (490385131). Cardiac fluoroscopy (099466297). Social History Social & Psychosocial Habits Alcohol 09/13/2024 Risk Assessment: Denies Alcohol Use Substance Abuse 09/13/2024 Risk Assessment: Denies Substance Abuse Tobacco 09/13/2024 Tobacco Use: Former smoker, quit more Smokeless tobacco use: Never Type: Cigarettes Tobacco use per day: 2 Started at age: 23.0 Years Stopped at age: 42 Years 09/13/2024 Tobacco Use: Former smoker, quit more . Physical Examination Airway: Mallampati classification: II (soft palate, fauces, uvula visible). Respiratory: adequate air exchange. Cardiovascular: Regular rhythm. Plan [place] [employer] (ASA) physical status classification: Class III. Anesthetic Preoperative Plan: Anesthesia General. Result Comment: Electronical ly Signed By: Jim Whaeln Jr, DO\Date and Time Signed: 09/17/24 21:40 EST MAIN OR PREOPERATIVE RECORD Observed: 11:00 AM Status: F Source: [facility] Main OR Preoperative Record Holding Area Document Type FT Summary Primary Physician: Harmony Bettencourt MD Finalized Date/Time: 09/13/24 09:36:21 Pt. Name: KATHERINEGINEREIDA/Sex: 1940 Female Med Rec #: [id number] Physician: Harmony Bettencourt MD Financial #: [id number] Pt. Type: O Room/Bed: / Admit/Disch: 09/13/24 09:11:07 - Institution: Case Times Holding FT Pre-Care Text: Verifies consent for planned procedure, identifies individual values and wishes concerning care, includes family members in perioperative teaching Secures patient's records' belongings, and valuables, maintains patient's dignity and privacy, and maintains patient confidentiality Entry 1 In Holding 09/13/24 09:30:00 Outcomes Met? Yes Last Modified By: Shawn Barrera RN 09/13/24 09:34:21 Post-Care Text: The patient participates in decisions affecting his or her perioperative plan of care The patient's right to privacy is maintained Surgery Checklist FT Entry 1 Patient Birthday, ID Band Procedure History and Physical, Identification: Check, Patient Verification: Surgical Consent, With Participation Patient NPO after Midnight: No Date/Time: 09/13/24 07:30:00 Results Reviewed yellow/ green liquid Personal Items: Cataract Lens Implant, Comments: bowel results Dentures, Glasses, Jewelry Personal Items clothing, shoes, Limitations: none Comment: glasses, bilateral cataract lens implants, metal in left hip, dentures (not removed) Complaints of Pain: No Pain Comment: denies Operative Site n/a Marked By: n/a Marking: Location: n/a Availability Equipment Verified: Does Patient Smoke No Patient states Yes Comment - Adult Inga- grandaughter postop adult Supervision supervision available Case Cancelled in No Holding Area see comments below for reason Last Modified By: Shawn Barrera RN 09/13/24 09:36:19 General Comments: pt finished bowel prep at 0730, per patient nothing to eat or drink since MSRN Finalized By: Shawn Barrera RN Document Signatures Signed By: Shawn Barrera RN 09/13/24 09:36 AMBULATORY VISIT SUMMARY Observed: 06/08 10:43 AM Status: F Source: [facility] Ambulatory Visit Summary NEREIDA AGOSTO :1940 Visit Date:06/08/2024 Ambulatory Visit Instructions Your Diagnosis Tubulovillous adenoma of colon History of colon cancer Your Care Team Attending Physician - Rut AHMADI, Harmony Jay Primary Care Physician - Kole Servin MD This Is Your Medications List Contact prescribing physician if questions or concerns alendronate (alendronate 70 mg Tab) apixaban (Eliquis 5 mg oral tablet) aspirin (aspirin 81 mg Oral EC Tab) carvedilol (carvedilol 12.5 mg Tab) furosemide (furosemide 20 mg Tab) levothyroxine (Synthroid 50 mcg Tab) lisinopril (lisinopril 20 mg Tab) meclizine (meclizine 25 mg Tab) potassium chloride (potassium chloride 20 mEq ER Tab) Procedures Performed Colonoscopy (04/26/2024), Colonoscopy (02/24/2023), Cardiac fluoroscopy, Closed fracture of hip, Tubal ligation. Discharge Vitals Heart Rate (Peripheral) 64 Respiratory Rate 16 Blood Pressure 111/73 Height 147 cm Height 58 in Weight 73.5 kg Weight 161.7 lb BMI 34.01 What to do next Scheduled Follow-Up Appointments Wednesday 12:15 PM EST With: Harmony Bettencourt MD Where: [facility] [address] [place] [address] [place], [place] [address]- Medications What How Much When Instructions Unchanged alendronate (alendronate 70 mg Tab) 1 Tablets By Mouth Every week Unknown, 1 Refill(s) Contact prescribing physician if questions or concerns Unchanged apixaban (Eliquis 5 mg oral tablet) 1 Tablets By Mouth 2 times a day Unknown Contact prescribing physician if questions or concerns Unchanged aspirin (aspirin 81 mg Oral EC [...] Contact prescribing physician if questions or concerns Medications and Immunizations Administered Not Given influenza virus vaccine, inactivated, Patient Refuses Allergies sulfa drugs (Unknown) Problems Ongoing - Any problem that you are currently receiving treatment for. A-fib Aortic valve regurgitation BMI 32.0-32.9,adult Cardiomegaly Cardiomyopathy Congestive heart failure History of colon cancer HTN (hypertension) Hypothyroidism Left atrial enlargement Lower [...] you for choosing us for your care. GASTROENTEROLOGY OFFICE/CLIN IC NOTE Observed: 06/08/2024 10:24 AM Status: F Source: [facility] Gastroenterology Office/Clin ic Note Chief Complaint dr swan ref for repeat scope HPI Staff This is a year old female who presents today for a referral by Dr Swan for repeat Colonoscopy with lift technique. Blood Thinners- Eliquis. Denies GLP-1 Agonists. Colonoscopy w/ Dr Swan 04/26/24 Postoperative Diagnosis: Recurrent cecal polyp x2 as well as diverticulosis Last office visit w/ Dr Swan 05/10/24 Assessment/Plan 1. Tubulovillous adenoma of colon (D12.6: Benign neoplasm of colon, unspecified) recurrent, but no dysplasia; removed in piecemeal fashion due to irregular, sessile polyps around fold; recommend GI evaluation for repeat colonoscopy in 6 months to 1 year for possible lift technique. History of Present Illness I have reviewed HPI staff note, most recent labs and imaging, more than 30 minutes spent reviewing the chart, during encounter, placing orders and counseling the patient. pt with no symptoms pt with large polyp in the AC with HGD removed in piecemeal fashion in 2022 repeat colonoscope in 04/2024- 2 cecal polyp and ?recurrent polyp around a fold Review of Systems All systems reviewed, negative except as mentioned above Physical Exam Vitals & Measurements HR: 64(Peripheral) RR: 16 BP: 111/73 HT: 58 in HT: 147 cm WT: 73.5 kg WT: 161.7 lb BMI: 34.01 General: alert, no acute distress HEENT: atraumatic normocephalic Cardiovascular: regular rate and rhythm, normal peripheral perfusion Respiratory: Lungs CTA, respirations non labored Extremities: no deformity, no trauma Abdomen: Benign, soft, nontender nondistended Assessment/Plan 1. Tubulovillous adenoma of colon (D12.6: Benign neoplasm of colon, unspecified) Ordered: Colonoscopy (Hospital Procedure) 2. History of colon cancer (Z85.038: Personal history of other malignant neoplasm of large intestine) Ordered: Colonoscopy (Hospital Procedure) Follow-up No qualifying data available Problem List/Past Medical History Ongoing A-fib Aortic valve regurgitation BMI 32.0-32.9,adult Cardiomegaly Cardiomyopathy Congestive heart failure History of colon cancer HTN (hypertension) Hypothyroidism Left atrial enlargement Lower extremity edema LVH (left ventricular hypertrophy) Obesity due to excess calories Osteoporosis Personal history of colonic polyps Positive fecal occult blood test Tubulovillous adenoma of colon Historical No qualifying data Procedure/Surgical History Colonoscopy (04/26/2024), Colonoscopy (02/24/2023), Cardiac fluoroscopy, Closed fracture of [...] quit more than 30 days ago Tobacco Use:., 06/08/2024 Former smoker, quit more than 30 days ago Tobacco Use:. Never Smokeless Tobacco Use:. Cigarettes, 2 per day. Started age 25.0 Years. Stopped age 42 Years., 03/15/2024 Family History Asthma: Mother. Renal cell carcinoma: Brother. Immunizations Vaccine Date Status Comments influenza virus vaccine, inactivated - Not Given Patient Refuses influenza virus vaccine, inactivated 07/21/2022 Recorded SARS-CoV-2 (COVID-19) mRNA-1273 vaccine 08/28/2021 Recorded SARS-CoV-2 (COVID-19) mRNA-1273 vaccine 11/14/2020 Recorded SARS-CoV-2 (COVID-19) mRNA-1273 vaccine 10/18/2020 Recorded influenza virus vaccine, inactivated 07/11/2020 Recorded pneumococcal 13-valent vaccine 07/26/2017 Recorded pneumococcal 23-valent vaccine 06/29/2016 Recorded influenza, unspecified formulation 06/29/2016 Recorded Result Comment: Electronical ly Signed By: Rut AHMADI, Harmony Mckeon.br\Date and Time Signed: 06/08/24 10:25 EDT GENERAL SURGERY OFFICE/CLINI C NOTE Observed: 05/10/2024 1:55 PM Status: F Source: [facility] General Surgery Office/Clini c Note Chief Complaint colonoscopy follow up HPI Staff 14 day post operative follow up post colonoscopy with cecal polypectomy x 2. History of Present Illness f/u colonoscopy with cold snare polypectomy x2 for large ascending colon tubulovillous adenomas, no dysplasia; had large tubulovillous adenoma with focus of high grade dysplasia removed from ascending colon 1 year ago; denies abd pain or blood in stools. [...] colon (D12.6: Benign neoplasm of colon, unspecified) recurrent, but no dysplasia; removed in piecemeal fashion due to irregular, sessile polyps around fold; recommend GI evaluation for repeat colonoscopy in 6 months to 1 year for possible lift technique. Ordered: E&M of Est. Patient Low 20-29 Min [id number] [facility] Internal Ambulatory Referral Follow-up No qualifying data available Problem List/Past Medical History Ongoing A-fib Aortic valve regurgitation BMI 32.0-32.9,adult Cardiomegaly Cardiomyopathy Congestive heart failure HTN (hypertension) Hypothyroidism Left atrial enlargement Lower extremity edema LVH (left ventricular hypertrophy) Obesity due to excess calories Osteoporosis Personal history of colonic polyps Positive fecal occult blood test Tubulovillous adenoma of colon Historical No qualifying data Procedure/Surgical History Colonoscopy (04/26/2024), Colonoscopy (02/24/2023), Cardiac fluoroscopy, Closed fracture of [...] Years. Stopped age 42 Years., 03/15/2024 Family History Asthma: Mother. Renal cell carcinoma: Brother. Immunizations Vaccine Date Status influenza virus vaccine, inactivated 07/21/2022 Recorded SARS-CoV-2 (COVID-19) mRNA-1273 vaccine 08/28/2021 Recorded SARS-CoV-2 (COVID-19) mRNA-1273 vaccine 11/14/2020 Recorded SARS-CoV-2 (COVID-19) mRNA-1273 vaccine 10/18/2020 Recorded Result Comment: Electronical ly Signed By: ALVARO AHMADI, Keyla Weaver\Date and Time Signed: 05/10/24 13:55 EDT PATHOLOGY REQUEST FOR LAB LIANNE Collected: 04/26/2024 8:33 AM Status: F Source: [facility] Order Comment: PATHOLOGY GI SPECIMEN TYPE CODE TESTS RESULT OUT OF RANGE REFERENCE UNITS LAB [facility] Pathology Request for Lab Lianne Result Comment: See report. Scanned copy available in EMR. PERFORMED BY: [address] [place] [address] PATHOLOGIST COMMUNICATION CENTER OPERATOR JIANLAN SUN M.D. Performed By: #### [facility] #### [facility] [address] GENERAL SURGERY OFFICE/CLINI C NOTE Observed: 03/15/2024 2:07 PM Status: F Source: [facility] General Surgery Office/Clini c Note Chief Complaint surveillance colonoscopy HPI Staff [...] Years. Stopped age 42 Years., 03/15/2024 Family History Asthma: Mother. Renal cell carcinoma: Brother. Immunizations Vaccine Date Status influenza virus vaccine, inactivated 07/21/2022 Recorded SARS-CoV-2 (COVID-19) mRNA-1273 vaccine 08/28/2021 Recorded SARS-CoV-2 (COVID-19) mRNA-1273 vaccine 11/14/2020 Recorded SARS-CoV-2 (COVID-19) mRNA-1273 vaccine 10/18/2020 Recorded Result Comment: Electronical ly Signed By: ALVARO AHMADI, Keyla Lee\.br\Date and Time Signed: 03/15/24 14:08 EDT AMBULATORY VISIT SUMMARY Observed: 03/15 2:02 PM Status: F Source: [facility] Ambulatory Visit Summary DAIN AGOSTOSWAPNIL Rubin :1940 Visit Date:03/15/2024 Ambulatory Visit Instructions Your Diagnosis Personal history of colonic polyps Your Care Team Attending Physician - ALVARO AHMADI, Keyla Lee Primary Care Physician - Kole Servin MD This Is Your Medications List [...] you for choosing us for your care. PROGRESS Observed: 02/07/2024 10:00 AM Status: COMPLETED Source: [facility] Cardiology Clinic Note Chief Complaint: Patient here [...] normal sinus rhythm with PACs after cardioversion. Cardiac cath 12/15/2018: Mild CAD Assessment: Takotsubo cardiomyopathy - Resolved I51.81: Takotsubo syndrome 2. Paroxysmal atrial fibrillation - I48.0: Paroxysmal atrial fibrillation 3. Hypothyroidism - As per PCP E03.9: Hypothyroidism, unspecified HYPOTHYROIDISM: CARE INSTRUCTIONS 4. Atrial fibrillation - CHADS2-VASc of 3 on Eliquis and amiodarone I48.91: Unspecified atrial fibrillation ATRIAL FIBRILLATION: CARE INSTRUCTIONS 5. Pulmonary function studies abnormal - 6. Mild to moderate mitral regurgitation Plan: Continue current medical therapy Repeat an echocardiogram in a year to serially monitor her valvular heart disease as well as her ejection fraction Return to clinic in 1 year or sooner should problems arise Goldie Vaughan MD, MPH, [facility], [facility], [facility] Interventional Cardiology Pager Email: [email or web address] OFFICE VISIT Observed: 02/07/2024 10:00 AM Status: COMPLETED Source: [facility] [id number] Nereida Agosto 1940 F Date Provider Department Center 02/07/2024 271-GOLDIE VAUGHAN CARD Anneliese Cook Family History Problem Relation Age of Onset No Known Problems Mother No Known Problems Father Family Status - Relation Status Age at Mother Father Level of Service:36673 PA OFFICE/OUTPATIENT ESTABLISHED LOW MDM 20 MIN ALLERGIES DATE TYPE / CODE NAME / CODE REACTION SEVERITY SOURCE 05/28/2022 Drug Class/767070795( SNOMED CT) SULFA (SULFONAMIDE ANTIBIOTICS) [facility] /[id number](SNO MED CT) sulfa drugs [id number] [facility] /[id number](SN MED CT) Xanax [id number] [facility] ENCOUNTERS ADMIT/DISCHARGE ACCOUNT NUMBER ADMITTING ENCOUNTER CLASS LOCATION SOURCE 09/28/2024/09/28/19 [id number] [facility][id number] [facility] 09/13/2024/09/13/19 [id number] Harmony Bettencourt [facility] 06/08/2024 [id number] [facility] 06/08/2024/06/08/20 [id number] [facility] CD:[id number] 3 [facility] 05/10/2024/05/10/20 24 [id number] [facility] Procedure [facility] 04/26/2024/04/26/20 24 [id number] [facility] 04/26/2024/04/26/20 24 [id number] Ambulatory CD:[id number] 7Building:CD :[id number] [facility] 04/13/2024/04/13/20 24 [id number] Ambulatory Building:NOM S BCP OB [facility] 03/29/2024/03/29/20 24 [id number] Ambulatory Building:NOM S [facility] OB [facility] 03/15/2024/03/15/20 24 [id number] Ambulatory [facility] [facility] : Procedure [facility] 02/07/2024/02/07/20 [id number] Ambulatory Building:[facility] PAYERS ENCOUNTER GUARANTOR PAYER SUBSCRIBER SOURCE 09/28/2024 NEREIDASWAPNIL GARCIA: MARKET STTel: ~~(4 1 (HP) Primary Insurance:MEDICAREPoli cy Number: [id number] Date:0496-32-42LG [id number] [place] [address] 96069JT: NEREIDASWAPNIL SAN [facility] 09/28/2024 Secondary Insurance: FOR LIFE MEDICARE SECONDARYPolicy Number: [id number] Date:9672-85-97KJ [address], [place] [address]DD: NEREIDA SAN [facility] 09/13/2024 NEREIDASWAPNIL WARDB: MARK[address] STTel: ~~(4 1 (HP) Primary Insurance:MEDICAREPoli cy Number: [id number] Date:6488-36-21FV [address] [place] [address] 13454MB: NEREIDA SAN [facility] 09/13/2024 Secondary Insurance: FOR LIFE MEDICARE SECONDARYPolicy Number: [id number] Date:1688-01-67QA [address], [place] [address]UJ: NEREIDA SAN [facility] 06/08/2024 NEREIDA WARDB: [id number] [address]: ~~(4 1 (HP) Primary Insurance:MEDICAREPoli cy Number: [id number] Date:1489-93-62HR [address] [place] [address] 08281DN: NEREIDA SAN [facility] 06/08/2024 Secondary Insurance: FOR LIFE MEDICARE SECONDARYPolicy Number: [id number] Date:2545-75-42SQ [address], [place] [address]ZF: NEREIDA Rubin XIANGJANNET [facility] 05/10/2024 NEREIDASWAPNIL WARDB: MARK[address] STTel: ~~(4 1 (HP) Primary Insurance:MEDICAREPoli cy Number: [id number] Date:5730-97-21DD [address]YDWCGVDAJ, [place] [address]FX: NEREIDA Rubin MENA [facility] 05/10/2024 Secondary Insurance: FOR LIFE MEDICARE SECONDARYPolicy Number: [id number] Date:2958-12-39AB [address], [place] [address]PO: NEREIDA Rubin XIANGFARRUKHDonteBelle [facility] 04/26/2024 Nereidaswapnil [address] [place] [address]Lpg: (HP) Primary Insurance:Self PayPolicy Number: Effective Date:2024-04-26 [facility] 04/26/2024 NEREIDASWAPNIL WARDB: MARK[address] STTel: ~~(4 1 (HP) Primary Insurance:MEDICAREPoli cy Number: [id number] Date:1667-48-73SD [address]FROVYWXJ, [place] [address]FS: NEREIDA Caryn MENA [facility] 04/26/2024 Secondary Insurance: FOR LIFE MEDICARE SECONDARYPolicy Number: [id number] Date:7906-20-74SE [address], [place] [address]EG: NEREIDA Caryn MENA [facility] 04/13/2024 NEREIDA WARDB: [facility] [place], [place] [address]Tvx: (HP) Primary Insurance:MEDICAREPoli cy Number: [id number] Date:9220-11-96Fixg Name:Medicare NEREIDA WARDB: [id number] [address] [facility] 04/13/2024 Secondary Insurance:TRICAREPolic y Number: [id number] Date:2018-09-06 NEREIDA WARDB: [id number] [place] [id number] [facility] 03/29/2024 NEREIDA WARDB: [place], [place] [address]Tel: (HP) Primary Insurance:MEDICAREPoli cy Number: [id number] Date:1996-97-37Fyow Name:Medicare NEREIDA WARDB: [id number] [address] [facility] 03/29/2024 Secondary Insurance:TRICAREPolic y Number: [id number] Date:2018-09-06 NEREIDA WARDB: [id number] [address] [facility] 03/15/2024 NEREIDA OTOOLECLEMENTEB: [facility]el: ~~(4 1 (HP) Primary Insurance:MEDICAREPoli cy Number: [id number] Date:8257-10-20PL [address], [place] [address]EE: NEREIDA SAN [facility] 03/15/2024 Secondary Insurance: FOR LIFE MEDICARE SECONDARYPolicy Number: [id number] Date:5986-80-74KS [address] [place] [address]SY: NEREIDA SAN [facility] 02/07/2024 Primary Insurance:MEDICAREPoli cy Number: [id number] Date:1796-71-57Ftck Name:Medicare NEREIDA OTOOLECLEMENTEB: [id number] [place] [id number] [facility] 02/07/2024 Secondary Insurance:TRICAREPolic y Number: [id number] Date:2022-09-062098-09-06 NEREIDA GARCIA: [id number] [place] [address] [facility]
--- OUTSIDE RECORDS SUMMARY | 2024-10-25 06:15 | XMS_ITS ---
Author Organization [facility] in [place] Address [address] [place] [address] Care Team Providers Care Motorcycle Maker Name Role Phone Manuel Servin Primary Care Provider Allergies Allergen (clinical drug ingredient) Drug/Non Drug Allergy documented on EMR Reaction Allergy Type Onset Date Status alprazolam Xanax unknown Drug Allergy Active Substance with sulfonamide structure and antibacterial mechanism of action (substance) Sulfa Antibiotics Unknown Drug Allergy Active REASON FOR VISIT 6mon checkup, Sometimes wakes up wheezy, but resolves on its own Medications Medication SIG (Take, Route, Frequency, Duration) Notes Start Date End Date Status Potassium Chloride ER 20 MEQ 1 tablet wi th food Orally Once a day Active Lisinopril 10 MG 1 tablet Orally Once a day Active Meclizine HCl 25 mg TAKE 1 TABLET TWICE A DAY Active Spironolactone 25 MG 1/2 tablet Oral twi ce daily for 90 days Active Vitamin D 25 MCG (1000 UT) 1 tablet Oral ly Once a day Active Furosemide 20 mg TAKE 1 TABLET DAILY Active Levothyroxine Sodium 50 MCG TAKE 1 TABLET DAILY Active Carvedilol 12.5 mg TAKE 1 TABLET TWICE A DAY Active Eliquis 5 mg TAKE 1 TABLET TWICE A DAY Active Ferrous Sulfate 325 (65 Fe) MG 1 tablet Orally every other day 10/25/2024 Active Calcium 600 MG 1 tablet with meals Orally Twice a day Active Alendronate Sodium 70 mg TAKE 1 TABLET O NCE A WEEK 30 MINUTES BEFORE THE FIRST FOOD, BEVERAGE, OR MEDICINE OF THE DAY WITH PLAIN WATER Active Social History Tobacco Use: Social History Observation Description Date Details (start date - stop date) Former Smoker 09/06/1964 - 09/06/1980 Tobacco Use/Smoking Question Answer Notes Patient is a former smoker When did you start smoking? 09/06/1964 When did you stop smoking? 09/06/1980 How long has it been since you last smoked? > 10 years Vital Signs Blood pressure systolic 132 mm Hg 10/25/19 25 Blood pressure diastolic 92 mm Hg 025 Height 58 in 10/25/2024 Weight 159.0 lbs 10/25/2024 BMI 33.23 kg/m2 10/25/2024 Encounters Encounter Location Date Provider Diagnosis [facility] [address] [place] [address] 10/25/2024 Manuel Servin CHF (congestive hear t failure) I50.9 ; Hypothyroidism E03.9 ; Hypertension I10 and Takotsubo cardiomyopathy I51.81 Assessments Encounter Date Diagnosis (ICD Code) Assessment Notes Treatment Notes Treatment Clinical Notes Section Notes 10/25/2024 CHF (congestive heart failure) (ICD-10 - I50.9) 10/25/2024 Hypothyroidism (ICD-10 - E03.9) 10/25/2024 Hypertension (ICD-10 - I10) 10/25/2024 Takotsubo cardiomyopathy (ICD-10 - I51.81) Plan Of Treatment Next Appt Details Provider Name:Manuel Servin, 10:30:00 AM, [address] [place], [address], Progress Notes * Nereida AGOSTO PDOB:[birth year] (84 yo F)Acc No.[id number]:10/25/2024 Progress Note Patient: Belle MORILLO Nereida Rubin Provider: Kenia Servin ([facility])MD :1940 A ge:84 Y S ex:Female Date:10/25/2024 Address:[address] [place], [place] [id number] Check In:09:57 AM ESTCheck O ut:10:54 AM EST Subjective: * Chief Complaints: * 6 mon checkupSometimes wakes up wheezy, but resolves on its own * HPI: D epression Screening: PHQ-9 L ittle interest or pleasure in doing things?Several days F eeling down, depressed, or hopeless M ore than half the days T rouble falling or staying asleep, or sleeping too much M ore than half the days F eeling tired or having little energy N early every day P oor appetite or overeating M ore than half the days F eeling bad about yourself or that you are a failure, or have let yourself or your family down N ot at all T rouble concentrating on things, such as reading the newspaper or watching television S everal days M oving or speaking so slowly that other people could have noticed; or the opposite, being so fidgety or restless that you have been moving around a lot more than usual N ot at all T houghts that you would be better off or of hurting yourself in some way N ot at all T otal Score 1 1 I nterpretation M oderate Depression Bp good control at home - up sl here diusecussed ostepopenai =- getting injection next month disucsed thyopri -on meds edmae well conttolled. * ROS: E ENT: hearing changes d enies. v isual changes d enies.?non-healing mouth sores d enies. s wollen glands or neck lumps d enies. h oarseness d enies. s ore throat d enies. d ifficulty swallowing d enies. n ose bleeds d enies. n licha congestion d enies. e ar ache d enies. e ar discharge?denies. r inging in ears d enies. l ight sensitivity d enies. e ye pain d enies. b lurring d enies. e ye irritation d enies. d ouble vision d enies.?vision loss d enies. G eneral/Constitutional: Sweats: D enies. F atigue d enies. S leep problems d enies. A norexia d enies. M alaise d enies. W eight loss d enies.?Fatigue or Weakness d enies. F ever or Chills d enies. C ardiovascular: Shortness of Breath w/lying flat d enies. L ightheadedness/dizziness d enies. C hest tightness/ heavy pressure d enies. S welling of legs, ankles, or feet d enies. W aking up with shortness of breath d enies. C hest pain denies. P alpitations d enies. W eight gain d enies. R espiratory: Chronic or frequent cough d enies. C oughing up blood?denies. D ifficulty breathing d enies. P roductive cough d enies. S noring?denies. S hortness of breath that awakens from sleep (PND) d enies. C hest pain d enies. S putum production d enies. W heezing d enies. M usculoskeletal: Joint pain d enies. J oint Fluid d enies. B ack pain d enies. K nee pain d enies. N cookie pain d enies. J oint Stiffness d enies. M uscle cramps d enies. W eakness of muscles d enies. A rthritis d enies. M uscle aches d enies. P ain in shoulder(s) d enies. S wollen joints d enies. * Active Problem List S42.352A Displaced comminuted fracture of shaft of humerus, left arm, initial encounter for closed fracture Modified On:01/13/2023 Status:confirmed S72.142A Displaced intertroch anteric fracture of left femur, initial encounter for closed fracture Modified On:01/13/2023 Status:confirmed S82.832A Other fracture of up per and lower end of left fibula, initial encounter for closed fracture Modified On:01/13/2023 Status:confirmed S82.845A Nondisplaced bimalle olar fracture of left lower leg, initial encounter for closed fracture Modified On:01/13/2023 Status:confirmed I10 Hypertension Modified On:10/28/2023 Status:confirmed I50.9 CHF (congestive hear t failure) Modified On:10/28/2023 Status:confirmed E03.9 Hypothyroidism Modified On:01/19/2023 Status:confirmed I48.91 Afib Modified On:07/21/2023 Status:confirmed I51.7 Left ventricular hyp ertrophy Modified On:01/13/2023 Status:confirmed H61.20 Cerumen impaction Modified On:01/13/2023 Status:confirmed M81.0 Osteoporosis Modified On:01/13/2023 Status:confirmed R60.0 Edema of left lower extremity Modified On:01/13/2023 Status:confirmed J20.9 Acute bronchitis Modified On:01/13/2023 Status:confirmed Z00.00 Well adult Modified On:01/13/2023 Status:confirmed J47.9 Bronchiectasis Modified On:01/13/2023 Status:confirmed R55 Near syncope Modified On:01/13/2023 Status:confirmed S82.55XS Nondisplaced fractur e of medial malleolus of left tibia, sequela Modified On:01/13/2023 Status:confirmed I51.81 Takotsubo cardiomyop athy Modified On:10/28/2023 Status:confirmed I35.1 Aortic valve regurgi tation Modified On:01/13/2023 Status:confirmed Z91.81 At risk for falls Modified On:01/13/2023 Status:confirmed I51.7 Atrial enlargement, left Modified On:01/13/2023 Status:confirmed I50.1 Heart failure, left, with LVEF <=30% Modified On:01/13/2023 Status:confirmed U07.1 COVID-19 virus infec tion Modified On:01/13/2023 Status:confirmed D36.9 Benign neoplasm, uns pecified site Modified On:03/03/2023 Status:confirmed Z01.818 Pre-op exam Modified On:08/13/2023 Status:confirmed R26.89 Poor balance Modified On:04/24/2024 Status:confirmed K63.5 Colon polyp Modified On:05/11/2024 Status:confirmed K57.90 Diverticulosis Modified On:09/05/2024W/U Status:confirmed * Medical History: * Surgical History: l eft hip surgery- metal piece Tubal Ligation Colonoscopy 02/24/2023olonoscopy- colon polyps/ diverticulosis 04/26/2024 * Hospitalization/Major Diagno stic Procedure: s ee above * Family History: F ather: . M other: , asthma. B dell(s): , kidney cancer, diagnosed with Other malignant neoplasm of unspecified site. S on(s): alive. D rodolfo(s): alive. 1 brother(s) . 1 son(s) , 1 daughter(s) - healthy. . * Social History: T obacco Use: T obacco Use/Smoking P atient is a f ormer smoker W hen did you start smoking? 0 09/06/1964 W hen did you stop smoking? 0 09/06/1980 H ow long has it been since you last smoked??> 10 years * Medications: T akingAlendronate Sodium 70 mg Tablet TAKE 1 TABLET ONCE A WEEK 30 MINUTES BEFORE THE FIRST FOOD, BEVERAGE, OR MEDICINE OF THE DAY WITH PLAIN WATER Calcium 600 MG Tablet 1 tablet with meals Orally Twice a day Carvedilol 12.5 mg Tablet TAKE 1 TABLET TWICE A DAY Eliquis(Apixaban) 5 mg Tablet TAKE 1 TABLET TWICE A DAY Ferrous Sulfate 325 (65 Fe) MG Tablet 1 tablet Orally every other day Furosemide 20 mg Tablet TAKE 1 TABLET DAILY Levothyroxine Sodium 50 MCG Tablet TAKE 1 TABLET DAILY Lisinopril 10 MG Tablet 1 tablet Orally Once a day Meclizine HCl 25 mg Tablet TAKE 1 TABLET TWICE A DAY Potassium Chloride ER 20 MEQ Tablet Extended Release 1 tablet with food Orally Once a day Spironolactone 25 MG Tablet 1/2 tablet Oral twice daily Vitamin D 25 MCG (1000 UT) Tablet 1 tablet Orally Once a day Medication List reviewed and reconciled with the patientTaking Alendronate Sodium 70 mg Tablet TAKE 1 TABLET ONCE A WEEK 30 MINUTES BEFORE THE FIRST FOOD, BEVERAGE, OR MEDICINE OF THE DAY WITH PLAIN WATER Taking Calcium 600 MG Tablet 1 tablet with meals Orally Twice a day Taking Carvedilol 12.5 mg Tablet TAKE 1 TABLET TWICE A DAY Taking Eliquis(Apixaban) 5 mg Tablet TAKE 1 TABLET TWICE A DAY Taking Ferrous Sulfate 325 (65 Fe) MG Tablet 1 tablet Orally every other day Taking Furosemide 20 mg Tablet TAKE 1 TABLET DAILY Taking Levothyroxine Sodium 50 MCG Tablet TAKE 1 TABLET DAILY Taking Lisinopril 10 MG Tablet 1 tablet Orally Once a day Taking Meclizine HCl 25 mg Tablet TAKE 1 TABLET TWICE A DAY Taking Potassium Chloride ER 20 MEQ Tablet Extended Release 1 tablet with food Orally Once a day Taking Spironolactone 25 MG Tablet 1/2 tablet Oral twice daily Taking Vitamin D 25 MCG (1000 UT) Tablet 1 tablet Orally Once a day Medication List reviewed and reconciled with the patient * Allergies: X anax: unknown - Criticality HighSulfa Antibiotics: Unknownno[Allergies Verified] Objective: * Vitals: W t:159.0lbs, Ht: 58 in, BP:132/92mm Hg, BMI:33.23Index, Ht-cm: 147.32 cm, Wt-k.12 kg. * Examination: P hysical Exam: GENERAL: w ell developed, well nourished, in no acute distress. HEAD: n ormocephalic/atraumatic. EYES: p upils equal, round and reactive to light, conjunctivae and sclerae normal. EARS: n o deformity or lesion of external ear, canals and TM appear normal bilaterally, TM's intact, not inflamed with normal light reflex, hearing grossly normal to conversational speech. NOSE: n o deformity, discharge, inflammation, or lesions.? MOUTH: m ucous membranes moist, normal oropharynx and posterior pharynx without lesions or exudates, tongue normal, dentition normal. NECK: n cookie supple, no masses or palpable cervical nodes, trachea midline, thyroid without nodules, masses, tenderness, or enlargement. CHEST: n o chest wall deformity, no chest wall tenderness.? LUNGS: n ormal respiratory effort and clear to auscultation, no wheezes, rales, or rhonchi, good air exchange. CARDIO: r egular rate and rhythm, normal S1 and S2, nor murmur, rub, or gallop. PULSES: n ormal capillary refill. ABDOMEN: s oft, non-distended, non-tender, no masses. MUSCULOSKELETAL: n o deformity or scoliosis noted, normal range of motion, joints normal, no erythema, edema, effusion, or ecchymosis. EXTREMITY: n o clubbing, cyanosis, edema, or deformity with normal ROM in both upper and lower bilateral extremities. NEUROLOGIC: g rossly normal. SKIN: n o rashes, ulcerations, or suspicious lesions. LYMPH NODES: n o cervical adenopathy, nodes normal. MENTAL STATUS: a lert and oriented x3, normal mood and affect. Assessment: * Assessment: 1. C HF (congestive heart failure) - I50.9 (Primary) 2 . H ypothyroidism - E03.9 3 . H ypertension - I10 4 . T akotsubo cardiomyopathy - I51.81 Plan: * Treatment: * Procedure Codes: * Preventive Medicine: Screenings/Counseling: B [facility] ACTION PLAN Above Normal BMI Follow-up D ietary management education, guidance, and counseling F ALL RISK SCREENING Fall Risk Assessment: N o falls in the past year * * Sign off status: Completed Visit Status: C HK (Check Out) true * Provider: Kenia Servin ([facility])MD Date: 0 10/25/2024 Generated for Shreyai michelle/Sina/eTransmitting on: 0 01/26/2025 12:46 PM EDT History and Physical Notes * HPI (History of Present Illness) Category Sub-Category Detail Notes Category Not es Depression Screening PHQ-9 Little inte rest or pleasure in doing things: Several days Bp good control at home - up sl here diusecussed ostepopenai =- getting injection next month disucsed thyopri -on meds edmae well conttolled Feeling down, depressed, or hopeless: Mo re than half the days Trouble falling or staying a sleep, or sleeping too much: More than half the days Feeling tired or having little energy: N early every day Poor appetite or overeating: More than h daisy the days Feeling bad about yourself o r that you are a failure, or have let yourself or your family down: Not at all Trouble concentrating on thi ngs, such as reading the newspaper or watching television: Several days Moving or speaking so slowly that other people could have noticed; or the opposite, being so fidgety or restless that you have been moving around a lot more than usual: Not at all Thoughts that you would be b avis off or of hurting yourself in some way: Not at all Total Score: 11 Interpretation: Moderate Depression Examination Category Sub-Category Detail Notes Category Not es Physical Exam GENERAL: well developed, well nourished, in no acute distress HEAD: normocephalic/atraum atic EYES: pupils equal, round and reactive to light, conjunctivae and sclerae normal EARS: no deformity or lesi on of external ear, canals and TM appear normal bilaterally, TM's intact, not inflamed with normal light reflex, hearing grossly normal to conversational speech NOSE: no deformity, discha rge, inflammation, or lesions MOUTH: mucous membranes christian st, normal oropharynx and posterior pharynx without lesions or exudates, tongue normal, dentition normal NECK: neck supple, no mass es or palpable cervical nodes, trachea midline, thyroid without nodules, masses, tenderness, or enlargement CHEST: no chest wall deform ity, no chest wall tenderness LUNGS: normal respiratory e ffort and clear to auscultation, no wheezes, rales, or rhonchi, good air exchange CARDIO: regular rate and rhy thm, normal S1 and S2, nor murmur, rub, or gallop PULSES: normal capillary ref ill ABDOMEN: soft, non-distended, non-tender, no masses RECTAL: MUSCULOSKELETAL: no deformity or scol iosis noted, normal range of motion, joints normal, no erythema, edema, effusion, or ecchymosis EXTREMITY: no clubbing, cyanosi s, edema, or deformity with normal ROM in both upper and lower bilateral extremities NEUROLOGIC: grossly normal SKIN: no rashes, ulceratio ns, or suspicious lesions LYMPH NODES: no cervical adenopat hy, nodes normal MENTAL STATUS: alert and oriented x 3, normal mood and affect
--- OUTSIDE RECORDS SUMMARY | 2025-01-26 12:44 | XMS_ITS | Continuity of Care Document ---
Author Name [facility] Organization [facility] Care Team Providers Care Tugboat Dispatcher Name Role Phone [facility] Unavailable Unavailable Medications Combined list of outpatient medications from Department of Defense and Veterans Affairs facilities.Medications provided include 1) outpatient medications from the last 15 months, and 2) patient-reported medications. Medication Details Route Status Patient Instructions Prescription Expires Prescription Number Last Dispense Date Ordering Provider Order Date Order Qty Source CARVEDILOL (carvedilol ), 12.5 MG, TABLET, ORAL, LEID Products., 500 ea. BOTTLE Active [id number] 2023 180 Pharmac y Data Transac tion Service Facilit y Immunizations Combined list of available immunizations from the Department of Defense and Veterans Affairs facilities. Immunization Series Date Given Administered By Site Reaction Lot Number CVX Code Drug Scrap Worker Status Comments Source COVID-19, mRNA, LNP-S, PF, 100 mcg or 50 mcg dose 2020 RAY, () Not Given COVID-19, mRNA, LNP-S, PF, 100 mcg or 50 mcg dose [facility] Social History Combined list of available smoking, tobacco, and other social history from Department of Defense and Veterans Affairs facilities. Social History Type Response Date Comment Sour e This section is an empty social history section. [facility]
--- NOTE | 2025-01-26 12:46 | MM_ITS ---
Patient Name: JOI DUNCAN MR#: [id number] : 1940 Exam Date: 01/26/2025 Ordering Doctor: DR JACINTO KAUR . RADIOLOGY REPORT PROCEDURE: MM TOMOSYNTHESIS SCREENING BI COMPARISON: MM TOMOSYNTHESIS SCREENING BI, 01/26/2024. MG MAMM SCREEN 3D TENZIN CAD, 01/21/2023. MG MAMM SCREEN 3D TENZIN CAD, 01/20/2022. MG MAMM TENZIN SCRN W CAD DIG, 08/02/2015. INDICATIONS: Screening Calculator Name NCI Breast Cancer Risk Assessment Tool 5 Year Breast Cancer Risk Not Reported. Lifetime Breast Cancer Risk Not Reported. Personal Breast Cancer No Personal Ovarian Cancer No Treatments None Family Cancers None LOCATION: [facility] BREAST COMPOSITION: There are scattered areas of fibroglandular density. FINDINGS: RIGHT BREAST: No significant suspicious finding. Benign-appearing calcifications are present. Benign-appearing lymph nodes are noted along the chest wall. There are similar focal asymmetries. LEFT BREAST: No significant suspicious finding. Benign-appearing calcifications are present. Benign-appearing lymph nodes are noted along the chest wall. There are similar focal asymmetries. DIAGNOSTIC CATEGORY 2--BENIGN FINDING. NO CHANGE FROM COMPARISON. RECOMMENDATIONS: ROUTINE MAMMOGRAM AND CLINICAL EVALUATION IN 12 MONTHS. PLEASE NOTE: A NORMAL MAMMOGRAM DOES NOT EXCLUDE THE POSSIBILITY OF BREAST CANCER. A CLINICALLY SUSPICIOUS PALPABLE LUMP SHOULD BE BIOPSIED. Dictated by: Jeremy Munoz MD on 01/26/2025 at 17:02 Approved by: Jeremy Munoz MD on 01/26/2025 at 17:06
--- OUTSIDE RECORDS SUMMARY | 2025-01-26 12:46 | XMS_ITS | Referral Summary ---
Author Organization [facility] Address [address] [place] [address] Care Team Providers Care Public Relations Analyst Name Role Phone Kole Servin MD Primary Care Provider Allergies Active Allergy Reactions Criticality Noted Date Comments Sulfa (Sulfonamide Antibiotics) 05/08 Medications Medication Sig Dispensed Refills Start Date End Date Status apixaban (Eliquis) 5 mg tablet Take 1 tablet by mouth in the morning and at bedtime. Active carvedilol (Coreg) 12.5 mg tablet Take 1 tablet by mouth in the morning and at bedtime. 06/02/2021 Active ferrous sulfate 325 (65 Fe) MG tablet Take 1 tablet every other day by oral route. Active furosemide (Lasix) 20 mg tablet Take 1 tablet by mouth in the morning. Active levothyroxine (Synthroid, Levoxyl) 50 mcg tablet Take 1 tablet every day by oral route for 30 days. Active meclizine (Antivert) 25 mg tablet Take 25 mg by mouth if needed. Active alendronate (Fosamax) 70 mg tablet 02/17/2023 Active cholecalciferol (Vitamin D-3) 25 MCG (1000 UT) capsule Take 1,000 Units by mouth in the morning. Active calcium 500 mg calcium (1,250 mg) tablet Take 1 tablet by mouth in the morning. Active potassium chloride CR (K-Tab) 20 mEq ER tablet Take 20 mEq by mouth in the morning. 01/22/2023 Active lisinopril 20 mg tabletIndications:Esse ntial hypertension TAKE 1 TABLET IN THE MORNING 90 tablet 3 08/31/2024 Active spironolactone (Aldactone) 25 mg tabletIndications:Hear t failure with mid-range ejection fraction (CMS/HCC) TAKE ONE-HALF (1/2) TABLET IN THE MORNING 45 tablet 3 08/31/2024 Active Active Problems Problem Noted Date Diagnosed Date Closed fracture of left hip 10/28/202310/08 Fracture of left humerus 10/28/2023 024 Intertrochanteric fracture of left femur 024 10/28/2023 On anticoagulant therapy 10/28/2023 024 Right knee pain 10/28/2023 10/28/2023 Sinus bradycardia by electrocardiography 024 10/28/2023 Traumatic injury of head 10/28/2023 024 Vasovagal syncope 10/28/2023 10/28/2023 Aortic valve regurgitation 08/05/202308/05 BMI 30.0-30.9,adult 08/05/2023 08/05/2023 Congestive heart failure 08/05/2023 023 Left atrial enlargement 08/05/2023 08/05/20 23 Lower extremity edema 08/05/2023 08/05/2023 LVH (left ventricular hypertrophy) 08/05/2023 08/05/2023 Osteoporosis 08/05/2023 08/05/2023 Positive fecal occult blood test 08/05/2023 08/05/2023 Tubulovillous adenoma of colon 08/05/2023 1 10/05/2022 Essential hypertension 07/01/2022 Hypothyroidism 09/26/2019 Takotsubo cardiomyopathy 09/26/2019 Paroxysmal atrial fibrillation 01/06/2019 Immunizations Name Administration Dates Next Due Influenza, Unspecified 06/29/2016 Influenza, trivalent, adjuvanted 07/11/2020 Moderna 12 YR UP Vaccine BiValent Booster 2020,11/14/2020,10/18/2020 Novel [id number], preservative-free 09/14 Pneumococcal Conjugate PCV 13 07/26/2017 Pneumococcal Polysaccharide PPV23 06/29/2016 Social History Tobacco Use Types Packs/Day Years Used Date Smoking Tobacco: Former Cigarettes Smokeless Tobacco: Never Tobacco Cessation:Counseling Given: Not Answered Alcohol Use Standard Drinks/Week Comments Yes 0 (1 standard drink = 0.6 oz pur e alcohol) occasional [place] Safety & Environment Answer Date Rec orded Fear of Current or Ex-Partner Not on file Emotionally Abused Not on file 10/28/2023 Physically Abused Not on file 10/28/2023 Sexually Abused Not on file 10/28/2023 Physically or Sexually Abused Not on file Sex and Gender Information Value Date Recorded Sex Assigned at Not on file Gender Identity Not on file Sexual Orientation Not on file Last Filed Vital Signs Vital Sign Reading Time Taken Comments Blood Pressure 112/74 02/07/2024 9:57 AM EDT Pulse 78 02/07/2024 9:57 AM EDT Temperature - - Respiratory Rate - - Oxygen Saturation 93% 02/07/2024 9:57 AM EDT Inhaled Oxygen Concentration - - Weight 71.2 kg (157 lb) 02/07/2024 9:57 AM EDT Height 149.9 cm (4' 11 ) 02/07/2024 9:57 AM EDT Body Mass Index 31.71 02/07/2024 9:57 AM EDT Plan of Treatment Upcoming Encounters Date Type Department Care Team (Late st Contact Info) Description 02/15/2025 10:40 AM EDT Office Visit [facility] [address] [place] [address] Halima Lorenzo, KAILEY [address] [place] [phone] Care Teams Public Relations Analyst Relationship Specialty Start Date End Date Kole Servin MD [address] [facility] [place] [address] PCP - General 05/28/22
--- OUTSIDE RECORDS SUMMARY | 2025-01-26 12:46 | XMS_ITS | Clinical Summary ---
Author Organization [facility] Address [address] [place] [address] Care Team Providers Care Marketing Operations Intern Name Role Phone Kole Servin MD Primary [...] YR UP Vaccine BiValent Booster 2020,11/14/2020,10/18/2020 Novel [id number], preservative-free 09/14 Pneumococcal Conjugate PCV 13 07/26/2017 Pneumococcal Polysaccharide PPV23 06/29/2016 Family History Medical History Relation Name Comments No Known Problems Father No Known Problems Mother Relation Name Status Comments Father Mother Social History Tobacco Use Types Packs/Day Years [...] Description 02/15/2025 10:40 AM EDT Office Visit [facility] [address] [place] [address] Halima Lorenzo, AUTOMATION ARCHITECT [address] [place] [address] Health Maintenance Due Date Last Done Comments Medicare Annual Wellness (AWV) 1940 Depression Screening 1952 Adult Tetanus 1964 Zoster Vaccines (1 of 2) 1992 Fall Risk Screening 2007 COVID-19 Vaccine ( season) 2024 08/28/2021, 08/28/2021, 11/14/2020, Additional history exists Influenza Vaccine (Season Ended) 2025 07/21/2022, 07/11/2020, 06/29/2016, Additional history exists Pneumococcal Vaccine: 65+ Years Completed 07/26/2017, 06/29/2016 HIB Vaccines Aged Out No longer eligi ble based on patient's age to complete this topic HPV Vaccines Aged Out No longer eligi ble based on patient's age to complete this topic IPV Vaccines Aged Out No longer eligi ble based on patient's age to complete this topic Meningococcal B Vaccine Aged Out No l onger eligible based on patient's age to complete this topic Meningococcal Vaccine Aged Out No juliette buck eligible based on patient's age to complete this topic Rotavirus Vaccines Aged Out No longer eligible based on patient's age to complete this topic Care Teams Marketing Operations Intern Relationship Specialty Start Date End Date Kole Servin MD [address] [facility] [place], [place] [id number] PCP - General 05/28/22
--- OUTSIDE RECORDS SUMMARY | 2025-01-26 12:46 | XMS_ITS | Encounter Summary ---
Author Organization [facility] Address [address] [place] [address] Care Team Providers Care Porter Bath Name Role Phone Kole Servin MD Primary Care Provider [phone] Encounter Details Date Type Department Care Team (Late Contact Info) Description 04/04/2024 Orders Only [facility] [address] [place] [phone] Alicia Field MA [address] [place] [address] Social History Tobacco Use Types Packs/Day Years Used Date Smoking Tobacco: Never Assessed Comments No Sex and Gender Information Value Date Recorded Sex Assigned at Not on file Legal Sex Female 9:01 AM EDT Gender Identity Not on file Sexual Orientation Not on file documented as of this encounter Plan of Treatment Upcoming Encounters Date Type Department Care Team (Late Contact Info) Description 04/04/2025 11:00 AM EDT Office Visit [facility] [address] [facility] [place] [address] Meera Jimenez PA [address] [place], [place] [id number] documented as of this encounter Procedures Procedure Name Priority Date/Time Associated Diagnosis Comments PAP SMEAR Routine 03/29/2024 12:00 AM EDT documented in this encounter Results * Pap Smear (03/29/2024 12:00 AM EDT) Swab Cervical swab / Unknown us [facility] CYTOLOGY ORDERABLES Final Re sult EXTERNAL LAB documented in this encounter Visit Diagnoses Not on filedocumented in this encounter Care Teams Porter Bath Relationship Specialty Start Date End Date Kole Servin MD PCP - General Family Medicine 04/06/23 documented as of this encounter
--- OUTSIDE RECORDS SUMMARY | 2025-01-26 12:46 | XMS_ITS | Clinical Summary ---
Author Organization [facility] Address [address] [place] [address] Care Team Providers Care Metal Bed Assembler Name Role Phone Kole Servin MD Primary Care Provider [phone] Allergies Active Allergy Reactions Criticality Noted Date Comments Alprazolam Unknown 03/29/2024 Sulfa Antibiotics Other,Unknown,Rash Low 02/02/2020 Medications furosemide (Lasix) 5 MG split tablet Take 20 mg by mouth 1 (one) time. 07/19/2022 Active carvedilol (Coreg) 6.25 MG tablet Take 1 tablet by mouth in the morning and 1 tablet before bedtime. Active Eliquis 5 MG tablet Take 1 tablet by mouth in the morning and 1 tablet before bedtime. Active Synthroid 50 MCG tablet Take 50 mcg by mouth in the morning. Take before meals. 01/22/2023 Active lisinopril 20 MG tablet Take 20 mg by mouth in the morning. 07/02/2022 Active meclizine (Antivert) 25 MG tablet Take 25 mg by mouth in the morning. Active cholecalciferol (Vitamin D-3) 25 MCG (1000 UT) capsule Take 1,000 Units by mouth in the morning. Active spironolactone (Aldactone) 25 MG tablet Take 12.5 mg by mouth in the morning. 08/05/2023 Active Active Problems Problem Noted Date Diagnosed Date Osteoporosis, post-menopausal 04/13/2024 Encounters Date Type Department Care Team Description 11/15/2024 Clinisync Result Encounter [facility] External Department Unsolicited Meera Jimenez PA from Last 3 Months Social History Tobacco Use Types Packs/Day Years Used Date Smoking Tobacco: Never Assessed Comments No Sex and Gender Information Value Date Recorded Sex Assigned at Not on file Legal Sex Female 9:01 AM EDT Gender Identity Not on file Sexual Orientation Not on file Last Filed Vital Signs Vital Sign Reading Time Taken Comments Blood Pressure 126/82 03/29/2024 10:40 AM EDT Pulse - - Temperature - - Respiratory Rate - - Oxygen Saturation - - Inhaled Oxygen Concentration - - Weight 72.6 kg (160 lb) 03/29/2024 10:40 AM EDT Height 149.9 cm (4' 11 ) 08/05/2023 2:34 PM EST Body Mass Index 32.32 08/05/2023 2:34 PM EST Plan of Treatment Upcoming Encounters Date Type Department Care Team (Late st Contact Info) Description 04/04/2025 11:00 AM EDT Office Visit [facility] [address] [place] [address] Meera Jimenez PA [address] [place] [address] Health Maintenance Due Date Last Done Comments Influenza Vaccine (Season Ended) 2025 07/21/2022, 07/11/2020, 06/29/2016 Pneumococcal Vaccine: 65+ Years Completed 7, 06/29/2016 Procedures Procedure Name Priority Date/Time Associated Diagnosis Comments [facility] CALCIUM Routine 11/15/2024 10:50 AM EDT [facility] CREATININE Routine 11/15/2024 10:50 AM EDT from Last 3 Months Results * (ABNORMAL) [facility] CREATININE (11/15/2024 10:50 AM EDT) CREATININE 1.32(H) 0.55 - 1.02 mg/dL [facility] EGFR-AF PALESTINIAN 47(L) >=60 mL/min/1.7 3m 2 [facility] EGFR-NON AF PALESTINIAN 39(L) >=60 mL/min/1.7 3m 2 [facility] 11/15/2024 10:5 0 AM EDT 11/15/2024 10:54 AM EDT Narrative [facility] - 11/15/2024 11:10 AM EDT us [facility] Final Result Performing Organization Address [facility]/ZIP Co de Phone Number [facility] * [facility] CALCIUM (11/15/2024 10:50 AM EDT) CALCIUM 9.4 8.5 - 10.1 mg/dL [facility] 11/15/2024 10:5 0 AM EDT 11/15/2024 10:54 AM EDT Narrative [facility] - 11/15/2024 11:10 AM EDT us Meera [facility] Final Result Performing Organization Address [facility] de Phone Number [facility] from Last 3 Months Insurance MEDICARE [facility] Care Teams Metal Bed Assembler Relationship Specialty Start Date End Date Kole Servin MD PCP - General Family Medicine 04/06/23
--- OUTSIDE RECORDS SUMMARY | 2025-01-26 12:46 | XMS_ITS | Encounter Summary ---
Author Organization [facility] Address [address] [place] [address] Care Team Providers Care Coal Washer Tender Name Role Phone Jacinto Kaur MD Primary Care Provider [phone] Encounter Details Date Type Department Care Team (Late Contact Info) Description 07/12/2023 Clinisync Result Encounter [facility] External Department Unsolicited Adriana Murguia DO [address] [place] [address] Social History Tobacco Use Types Packs/Day Years Used Date Smoking Tobacco: Never Assessed Comments Unknown Sex and Gender Information Value Date Recorded Sex Assigned at Not on file Legal Sex Female 9:01 AM EDT Gender Identity Not on file Sexual Orientation Not on file documented as of this encounter Plan of Treatment Upcoming Encounters Date Type Department Care Team (Late Contact Info) Description 04/04/2025 11:00 AM EDT Office Visit [facility] [address] [facility] [address] [address] [place] [address] Meera Jimenez PA [address] [place], [place] [id number] documented as of this encounter Procedures Procedure Name Priority Date/Time Associated Diagnosis Comments ECG 12-LEAD 07/12/2023 10:41 AM EST documented in this encounter Results * ECG 12-LEAD (07/12/2023 10:41 AM EST) Anatomical Region Laterality Modality Other 07/12/2023 10:4 1 AM EST Narrative 07/12/2023 10:41 AM EST [facility] [place] [id number] Electrocardiograph Report Signed Patient: JOI AGOSTO MR#: [id number] : 1940 Acct:[id number] Age/Sex: 83 / F ADM Date: 07/12/23 Loc: PST Attending Dr: Adriana Murguia D.O. Ordering Physician: Adriana Murguia D.O. Date of Service: 07/12/23 Procedure(s): ECG 12 lead Accession Number(s): [id number] cc: [facility] Test Date: 2023-07-12 Pat Name: JOI AGOSTO Department: Room: - Gender: Female Ice Cream Van Vendor: : 1940 Requested By: ADRIANA MURGUIA Order Number: [id number] Reading MD: JACINTO KAUR Measurements Intervals [place] Rate: 70 P: AK: QRS: -3 QRSD: 94 T: 28 QT: 427 QTc: 461 Interpretive Statements ATRIAL FIBRILLATION ABNORMAL RHYTHM ECG No previous ECG available for comparison Electronically Signed On 07-15-2023 6:22:44 EST by JACINTO KAUR Dictated By: Jacinto Kaur M.D. Signed By: 07/15/23622 DD/ 1041 TD/TT: Quality Assurance Qa Lab Analyst: Procedure Note Radiology, Radiologist, MD - 07/15/2023 [facility] [place] [id number] Electrocardiograph Report Signed Patient: JOI AGOSTO PMR#: [id number] : 1940cct:[id number] Age/Sex: 83 / FADM Date: 07/12/23 Loc: PST Attending Dr: Adriana Murguia D.O. Ordering Physician: Adriana Murguia D.O. Date of Service: 07/12/23 Procedure(s): ECG 12 lead Accession Number(s): [id number] cc: [facility] Test Date: 2023-07-12 Pat Name: JOI AGOSTO Department: Room: - Gender: Female Ice Cream Van Vendor: : 1940 Requested By: ADRIANA MURGUIA Order Number: [id number] Reading MD: JACINTO KAUR Measurements Intervals [place] Rate: 70 P: AK: QRS: -3 QRSD: 94 T: 28 QT: 427 QTc: 461 Interpretive Statements ATRIAL FIBRILLATION ABNORMAL RHYTHM ECG No previous ECG available for comparison Electronically Signed On 07-15-2023 6:22:44 EST by JACINTO KAUR Dictated By: Jacinto Kaur M.D. Signed By:07/15/23622 DD/ 104 TD/TT: Quality Assurance Qa Lab Analyst: us Adriana Murguia DO [facility] Final Result documented in this encounter Visit Diagnoses Not on filedocumented in this encounter Care Teams Coal Washer Tender Relationship Specialty Start Date End Date Jacinto Kaur MD PCP - General Family Medicine 04/06/23 documented as of this encounter
--- OUTSIDE RECORDS SUMMARY | 2025-01-26 12:46 | XMS_ITS | Encounter Summary ---
Author Organization [facility] Address [address] [place] [address] Care Team Providers Care Special Education Director Name Role Phone Kole Servin MD Primary Care Provider [phone] Encounter Details Date Type Department Care Team (Late Contact Info) Description 04/03/2024 Clinisync Result Encounter [facility] External Department Unsolicited Meera Aguayo PA [address] [facility] [place] [address] Social History Tobacco Use Types Packs/Day Years [...] EDT Office Visit [facility] BCP OB [address] [facility] [place] [phone] Meera Aguayo PA [address] [facility] [place] [address] documented as of this encounter Procedures Procedure Name Priority Date/Time Associated Diagnosis Comments XR DEXA AXIAL SKELETON 04/03/2024 9:09 AM EDT documented in this encounter Results * XR DEXA AXIAL SKELETON (04/03/2024 9:09 AM EDT) Anatomical Region Laterality Modality Other 04/03/2024 9:09 AM EDT Narrative 04/03/2024 9:12 AM EDT [address] [address] XRay Report Signed Patient: JOI AGOSTO MR#: [id number] : 1940 Acct:[id number] Age/Sex: 84 / F ADM Date: 04/03/24 Loc: RAD Attending Dr: Meera Aguayo Ordering Physician: Meera Aguayo Date of Service: 04/03/24 Procedure(s): XR DEXA axial skeleton Accession Number(s): [id number] cc: Meera Aguayo; Kole Servin M.D. [address] [address] Patient Name: JOI AGOSTO MRN: [id number] date: 1940 Sex: F Assigned Patient Location: [facility] Current Patient Location: [facility] Accession/Order Number: [id number] Exam Date: 04/03/2024 07:45 Report Date: 04/03/2024 09:09 At the request of: MEERA AGUAYO Procedure: XR DEXA axial skeleton EXAMINATION: XR DEXA axial skeleton HISTORY: Post Menopausal Osteoporosis M81.0 COMPARISON: DEXA bone densitometry 01/04/2022 TECHNIQUE: Dual-energy X-ray absorptiometry (DXA) was performed. FINDINGS: SPINE ANALYSIS: Average bone mineral density is 1.046 g/cm2. T-score (standard deviation relative to young adult mean): -1.1 . (Not previously evaluated.) HIP ANALYSIS: Lowest bone mineral density is within the right femoral neck, 0.680 g/cm2. T-score (standard deviation relative to young adult mean): -2.6 . -0.7% change since prior study. XR/XR DEXA axial skeleton IMPRESSION: World Health Organization Classification: Osteoporosis - High Fracture Risk FRAX: Not able to calculate. Pharmacologic treatment recommendations * No uniform recommendation applies to all patients. Management plans must be individualized. * Consider initiating pharmacologic treatment in postmenopausal women and men >= 50 years of age who have the following: Primary fracture prevention: * T-score <= - 2.5 at the femoral neck, total hip, lumbar spine, 33% radius (some uncertainty with existing data) by DXA. * Low bone mass (osteopenia: T-score between - 1.0 and - 2.5) at the femoral neck or total hip by DXA with a 10-year hip fracture risk >= 3% or a 10-year major osteoporosis-related fracture risk >= 20% (i.e., clinical vertebral, hip, forearm, or proximal humerus) based on the [place]-adapted FRAXregistered model. Secondary fracture prevention: * Fracture of the hip or vertebra regardless of BMD [4, 5]. * Fracture of proximal humerus, pelvis, or distal forearm in persons with low bone mass (osteopenia: T-score between - 1.0 and - 2.5). The decision to treat should be individualized in persons with a fracture of the proximal humerus, pelvis, or distal forearm who do not have osteopenia or low BMD [12, 13]. Jovany MS, Cesar SL, Brandee KL, Vita EM, Melba KG, AJ, Mitali ES. The clinician's guide to prevention and treatment of osteoporosis. Osteoporos Int. 2021;33(10):4118-7445. doi: 10.1007/q05141-912-98107-a. Epub 2021Jan 01. Erratum in: Osteoporos Int. 2021Apr 02;: PMID: 42124248; PMCID: [id number]. Electronically authenticated by: ELADIO MATTHEWS Date: 04/03/2024 09:09 Dictated By: Eladio Matthews M.D. Signed By: 04/03/24911 DD/ 8 TD/TT: Barrel Bander: Procedure Note Radiology, Radiologist, - 04/03/[address] [address] XRay Report Signed Patient: JOI AGOSTO PMR#: [id number] : 1940cct:[id number] Age/Sex: 84 / FADM Date: 04/03/24 Loc: [facility] Attending Dr: Meera Aguayo Ordering Physician: Meera Aguayo Date of Service: 04/03/24 Procedure(s): XR DEXA axial skeleton Accession Number(s): [id number] cc: Meera Aguayo; Kole Servin M.D. [place] [address] Patient Name: JOI AGOSTO MRN: [facility]:[id number] date: 1940 Sex: F Assigned Patient Location: [facility] Current Patient Location: [facility] Accession/Order Number: [id number] Exam Date: 04/03/2024 07:45 Report Date: 04/03/2024 09:09 At the request of: MEERA AGUAYO Procedure: XR DEXA axial skeleton EXAMINATION: XR DEXA axial skeleton HISTORY: Post Menopausal Osteoporosis M81.0 COMPARISON: DEXA bone densitometry 01/04/2022 TECHNIQUE: Dual-energy X-ray absorptiometry (DXA) was performed. FINDINGS: SPINE ANALYSIS: Average bone mineral density is 1.046 g/cm2. T-score (standard deviation relative to young adult mean): -1.1 . (Not previously evaluated.) HIP ANALYSIS: Lowest bone mineral density is within the right femoral neck, 0.680 g/cm2. T-score (standard deviation relative to young adult mean): -2.6 . -0.7% change since prior study. XR/XR DEXA axial skeleton IMPRESSION: World Health Organization Classification: Osteoporosis - High FractureRisk FRAX: Not able to calculate. Pharmacologic treatment recommendations * No uniform recommendation applies to all patients. Management plans mustbe individualized. * Consider initiating pharmacologic treatment in postmenopausal women andmen >= 50 years of age who have the following: Primary fracture prevention: * T-score <= - 2.5 at the femoral neck, total hip, lumbar spine, 33%radius (some uncertainty with existing data) by DXA. * Low bone mass (osteopenia: T-score between - 1.0 and - 2.5) at thefemoral neck or total hip by DXA with a 10-year hip fracture risk >= 3% or [id number] major osteoporosis-related fracture risk >= 20% (i.e., clinical vertebral, hip, forearm, or proximal humerus) based on the [place]-adapted FRAXregisteredmodel. Secondary fracture prevention: * Fracture of the hip or vertebra regardless of BMD [4, 5]. * Fracture of proximal humerus, pelvis, or distal forearm in persons withlow bone mass (osteopenia: T-score between - 1.0 and - 2.5). The decision totreat should be individualized in persons with a fracture of the proximalhumerus, pelvis, or distal forearm who do not have osteopenia or low BMD [12, 13]. Jovany MS, Cesar SL, Brandee KL, Vita EM, Melba KG, AJ,Mitali ES. The clinician's guide to prevention and treatment of osteoporosis.Osteoporos Int. 2021;33(10):0557-8357. doi: 10.1007/x31261-157-25507-f. Epub . Erratum in: Osteoporos Int. 2021Apr 02;: PMID: 43296894; PMCID: [id number]. Electronically authenticated by: ELADIO MATTHEWS Date: 04/03/2024 09:09 Dictated By: Eladio Matthews M.D. Signed By:04/03/24911 DD/ 8 TD/TT: Barrel Bander: Meera [facility] Final Result documented in this encounter Visit Diagnoses Not on filedocumented in this encounter Care Teams Special Education Director Relationship Specialty Start Date End Date Kole Servin MD PCP - General Family Medicine 04/06/23 documented as of this encounter
--- OUTSIDE RECORDS SUMMARY | 2025-01-26 12:46 | XMS_ITS | Encounter Summary ---
Author Organization [facility] Address [address] [facility] [place] [address] Care Team Providers Care Inorganic Chemistry Professor Name Role Phone Kole Servin MD Primary Care Provider [phone] Encounter Details Date Type Department Care Team ([facility] Contact Info) Description 04/20/2024 Orders Only [facility] BCP OB [address] [facility] [place] [phone] Meera Jimenez PA [address] [place] [address] [place], [place] [id number] Social History Tobacco Use Types Packs/Day Years Used Date Smoking Tobacco: Never Assessed Comments No Sex and Gender Information Value Date Recorded Sex Assigned at Not on file Legal Sex Female 9:01 AM EDT Gender Identity Not on file Sexual Orientation Not on file documented as of this encounter Plan of Treatment Upcoming Encounters Date Type Department Care Team ([facility] Contact Info) Description 04/04/2025 11:00 AM EDT Office Visit [facility] BCP OB [address] [place] [phone] Meera Jimenez PA [address] [place] [address] [place] [address] documented as of this encounter Visit Diagnoses Not on filedocumented in this encounter Care Teams Inorganic Chemistry Professor Relationship Specialty Start Date End Date Kole Servin MD PCP - General Family Medicine 04/06/23 documented as of this encounter
--- OUTSIDE RECORDS SUMMARY | 2025-01-26 12:46 | XMS_ITS | Patient Health Record ---
Author Organization [facility] Address [address] [place] [address] Care Team Providers Care Superintendent Plant Name Role Phone Manuel Servin Primary Care Provider [phone] Allergies Allergen (clinical drug ingredient) Drug/Non Drug Allergy documented on EMR Reaction Allergy Type Onset Date Status alprazolam Xanax unknown Drug Allergy Active Substance with sulfonamide structure and antibacterial mechanism of action (substance) Sulfa Antibiotics Unknown Drug Allergy Active Results Component Value Reference Range Notes BNP Reviewed date:04/24/2024 02:58:24 PM Interpretation: Performing Lab: Notes/Report: [facility] , NT Pro B Type Natriuretic Pept 1303.0 <=1800.0 pg/mL Performing Lab: see note ML - [facility] LB CBC AUTO DIFF Reviewed date:04/24/2024 02:58:24 PM Interpretation: Performing Lab: Notes/Report: [facility] , White Blood Count 7.1 4.0-11.0 10 3/uL Red Blood Count 4.24 4.20-5.40 10 6/uL Hemoglobin 13.5 12.0-16.0 g/dL Hematocrit 41.9 36.0-48.0 % Mean Corpuscular Volume 98.8 81.0-99.0 fL Mean Corpuscular Hemoglobin 31.8 26.7-34.0 pg Mean Corpuscular HGB Conc 32.2 29.9-35.2 g/dL Red Cell Distribution Width 12.4 11.0-15.0 % Platelet Count 170 150-450 10 3/uL Mean Platelet Volume 10.9 9.5-13.5 fL Neutrophils Percent Auto 74.8 43.0-75.0 % Lymphocytes Percent Auto 17.1 20.5-60.0 % Monocytes Percent Auto 5.9 1.7-12.0 % Eosinophils Percent Auto 1.3 0.9-7.0 % Basophils Percent Auto 0.6 0.2-2.0 % Immature Granulocytes Pct Auto 0.3 0.0-0.5 % Neutrophils Absolute Auto 5.3 1.4-6.5 10 3/uL Lymphocytes Absolute Auto 1.2 1.2-3.8 10 3/uL Monocytes Absolute Auto 0.4 0.3-0.8 10 3/uL Eosinophils Absolute Auto 0.1 0.0-0.7 10 3/uL Basophils Absolute Auto 0.0 0.0-0.1 10 3/uL Immature Granulocytes Abs Auto 0.02 0.00-0.03 10 3/uL Performing Lab: see note ML - [facility] LB CALCIUM Reviewed date:11/15/2024 12:47:01 PM Interpretation: Performing Lab: Notes/Report: [facility] , Calcium 9.4 8.5-10.1 mg/dL Performing Lab: see note - [facility] LB CREATININE Reviewed date:11/15/2024 12:47:01 PM Interpretation: Performing Lab: Notes/Report: [facility] , Creatinine 1.32 0.55-1.02 mg/dL Estimated GFR ( Kavya 47 >=60 mL/min/1.73m 2 Estimated GFR (Non- Deborah 39 >=60 mL/min/1.73m 2 Performing Lab: see note ML - [facility] LB TSH Reviewed date:04/24/2024 02:58:24 PM Interpretation: Performing Lab: Notes/Report: [facility] , Thyroid Stimulating Hormone 1.523 0.358-3.740 uIU/mL Performing Lab: see note ML - [facility] LB T4 Reviewed date:04/24/2024 02:58:24 PM Interpretation: Performing Lab: Notes/Report: [facility] , T4 Thyroxine 8.50 4.80-13.90 ug/dL Performing Lab: see note - [facility] LB LIPID PROFILE Reviewed date:04/24/2024 02:58:24 PM Interpretation: Performing Lab: Notes/Report: [facility] , Triglycerides 92 <=150 mg/dL Cholesterol 151 <=200 mg/dL HDL Cholesterol 46 40-60 mg/dL > or =60 mg/dl - LOW CARDIOVASCULAR RISK <40 mg/dl - HIGH CARDIOVASCULAR RISK LDL Cholesterol Calculated 86.6 <100 mg/dl OPTIMAL 100-129 mg/dl NEAR OR ABOVE OPTIMAL 130-159 mg/dl BORDERLINE HIGH 160-189 mg/dl HIGH >190 mg/dl VERY HIGH VLDL CHOLESTEROL 18.4 Chol HDL Ratio 3.3 3.3 - 4.4 LOW RISK 4.4 - 7.1 AVERAGE RISK 7.1 - 11.0 MODERATE RISK >11.0 HIGH RISK Performing Lab: see note ML - [facility] IRON Reviewed date:04/24/2024 02:58:24 PM Interpretation: Performing Lab: Notes/Report: [facility] , Iron 81.0 50.0-170.0 ug/dL Performing Lab: see note - [facility] GLYCOHEMOGLOBIN A1C Reviewed date:04/24/2024 02:58:24 PM Interpretation: Performing Lab: Notes/Report: [facility] , Glycohemoglobin A1C 5.1 4.5-6.2 % ADA RECOMMENDED LIMIT 4.0 - 6.0 ADA THERAPEUTIC TARGET < 7.0 ACTION SUGGESTED > 7.0 Estimated Average Glucose 100 Performing Lab: see note ML - [facility] FREE T3 Reviewed date:04/24/2024 02:58:24 PM Interpretation: Performing Lab: Notes/Report: [facility] Free T3 2.41 2.18-3.98 pg/mL Performing Lab: see note ML - [facility] XR DEXA axial skeleton Reviewed date:04/03/2024 08:30:13 PM Interpretation: Performing Lab: Notes/Report: Source Facility: [facility]-[address] [place] [address] [place] [address] XRay Report Signed Patient: NEREIDA AGOSTO MR#: [id number] : 1940 Acct:[id number] Age/Sex: 84 / F ADM Date: 04/03/24 Loc: RAD Attending Dr: Meera Aguayo Ordering Physician: Meera Aguayo Date of Service: 04/03/24 Procedure(s): XR DEXA axial skeleton Accession Number(s): [id number] cc: Meera Aguayo; Kole Servin M.D. [address] [address] Patient Name: NEREIDA AGOSTO MRN: [id number] date: 1940 Sex: F Assigned Patient Location: [facility] Current Patient Location: RAD Accession/Order Number: [id number] Exam Date: 04/03/2024 07:45 Report Date: 04/03/2024 [...] prevention and treatment of osteoporosis. Osteoporos Int. 2021;33(10):4103-2796. doi: 10.1007/v18596-529-79735-k. Epub 2021Jan 01. Erratum in: Osteoporos Int. 2021Apr 02;: PMID: 66792539; PMCID: [id number]. Electronically authenticated by: ELADIO MATTHEWS Date: 04/03/2024 09:09 Dictated By: Eladio Matthews M.D. Signed By: 04/03/24911 DD/ 8 TD/TT: [employer] Ticket Checker: [place] [address] XRay Report Signed Patient: NEREIDA AGOSTO MR#: [id number] : 1940 Acct:[id number] Age/Sex: 84 / F ADM Date: 04/03/24 Loc: [facility] Attending Dr: Meera Aguayo Ordering Physician: Meera Aguayo Date of Service: 04/03/24 Procedure(s): XR DEX A axial skeleton Accession Number(s): [id number] cc: Meera Aguayo; Kole Servin M.D. 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 FINDINGS: SPINE [...] Risk FRAX: Not able to calculate. Pharmacologic treatm ent recommendations * No uniform recommendation applies to all patients. Management plans must be individualized. * Consider initiatin g pharmacologic treatment in postmenopausal women and men >= 50 years of age w ho have the following: Primary fracture prevention: * T-score <= - 2.5 a t the femoral neck, total hip, lumbar spine, 33% radius (some uncertainty wi th existing data) by DXA. * Low bone mass (osteopenia: T-score between - 1.0 and - 2.5) at the femoral neck or total hip by DXA with a 10-year hip fracture risk >= 3% or a 10-year major osteoporosis-related fracture risk >= 20% (i.e., clinical vertebral, hip, forearm, or proximal humerus) based on the US-adapted FRAXregistered model. Secondary fracture prevention: * Fracture of the hi p or vertebra regardless of BMD [4, 5]. * Fracture of proxim al humerus, pelvis, or distal forearm in persons with low bone mass (osteopeni a: T-score between - 1.0 and - 2.5). The decision to treat should be individualized in persons with a fracture of the proximal humerus, pelvis, or distal forearm who do not have osteopenia or low BMD [12, 13]. Jovany MS, Cesar SL, Brandee KL, Vita EM, Melba KG, AJ, Mitali ES. The clinician's guid e to prevention and treatment of osteoporosis. Osteoporos Int. 2021;33(10):8484-6413. doi: 10.1007/[id number] 0-y. Epub 2021Jan 01. Erratum in: Osteoporos Int. 2021Apr 02;: PMID: 91456845; PMCID: [id number]. Electronically authenticated by: ELADIO MATTHEWS Date: 04/03/2024 09:09 Dictated By: Eladio Matthews M.D. Signed By: 04/03/24911 DD/ 8 TD/TT: [employer] Ticket Checker: Vin LINDER HPV,Age Gdln Reviewed date:04/03/2024 08:30:13 PM Interpretation: Performing Lab: Notes/Report: BRUSH-SPATULA CERVIX ENDOCERVIX [facility] , Age Gdln ACOG Testing Note . TESTS RESULT FLAG UNITS REF RANGE LAB Clinician Provided Cytology Information Source.............Cerv ix;Endocervix No. of containers..01 ThinPrep Vial Age Algo ACOG Yasemin... Note 01 <21 or >65 or no age provided FLAG LEGEND: L-Low Normal,H-High Normal,LL-Alert Low,HH-Alert High <-Panic Low,>-Panic High,A-Abnormal,AA-Crit ical Abnormal Performed at: 01 =G [facility] [address] [place] [address] Vickie Hurley MD, Pap IG (Image Guided) Note . TESTS RESULT FLAG UNITS REF RANGE LAB DIAGNOSIS: 02 NEGATIVE FOR INTRAEPITHELIAL LESION OR MALIGNANCY. Specimen adequacy: 02 Satisfactory for evaluation. Endocervical and/or squamous metaplastic cells (endocervical component) are present. Performed by: 02 Keiry Mauricio, Video Production Intern ([facility]) . 02 Note: Note 03 The Pap smear is a screening test designed to aid in the detection of premalignant and malignant conditions of the uterine cervix. It is not a diagnostic procedure and should not be used as the sole means of detecting cervical cancer. Both false-positive and false-negative reports do occur. Test Methodology: Note 03 This liquid based ThinPrep(R) pap test was screened with the use of an image guided system. FLAG LEGEND: L-Low Normal,H-High Normal,LL-Alert Low,HH-Alert High <-Panic Low,>-Panic High,A-Abnormal,AA-Crit ical Abnormal Performed at: 02 [facility] [address] [place] [phone] Los Davis MD, 03 WB [facility] [address] [address] Vickie Hurley MD, Performed at: =G - [facility] [address] [id number] Associate Financial Planner: Vickie Hurley MD, Phone: [phone] Performed at: [facility] - [facility] [address] [place] [address], [place], [place] [id number] Associate Financial Planner: Los Davis MD, Phone: [phone] Performing Lab: see note - [facility] LB CA echo doppler complete Reviewed date:11/15/2024 12:47:01 PM Interpretation: Performing Lab: Notes/Report: Source Facility: [place] [address] Cardiology Report Signed Patient: NEREIDA AGOSTO MR#: [id number] : 1940 Acct:[id number] Age/Sex: 84 / F ADM Date: 11/15/24 Loc: CARD Attending Dr: Goldie Waldrop M.D. Ordering Physician: Goldie Waldrop M.D. Date of Service: 11/15/24 Procedure(s): CA echo doppler complete Accession Number(s): [id number] cc: Goldie Waldrop M.D.; Kole Servin M.D. Patient Name: NEREIDA AGOSTO MR#: [id number] : 1940 Exam Date: 11/15/2024 Ordering Doctor: DR GOLDIE WALDROP M.D. ECHOCARDIOGRAM REPORT PROCEDURE: CA ECHO DOPPLER COMPLETE INDICATIONS: Takotsubo cardiomyopathy COMPARISON: None. DESCRIPTION: COMPLETE ECHOCARDIOGRAM Real-time transthoracic echocardiography with 2D, M-mode, spectral and color flow Doppler performed. QUALITY: Technical quality was good. LEFT VENTRICLE: Normal chamber size. Normal left ventricular wall thickness. LV EF: Global left ventricular systolic function is normal; visually estimated ejection fraction is 55 to 60%. No significant wall motion abnormalities. DIASTOLIC: Not adequately assessed due to heart rhythm. ATRIAL SEPTUM: Visually appears intact. LEFT ATRIUM: Moderate dilatation. RIGHT ATRIUM: Normal chamber size. RIGHT VENTRICLE: Normal chamber size. Normal right ventricular systolic function. TRICUSPID VALVE: Normal mobility and thickness. No stenosis with trivial regurgitation. No evidence of pulmonary hypertension. RVSP 22 mmHg MITRAL VALVE: Normal mobility and thickness. No evidence of mitral valve stenosis. There is no mitral annular calcification. No mitral regurgitation. AORTIC VALVE: Normal trileaflet appearance. Thickened aortic valve. Normal leaflet mobility. No evidence of aortic valve stenosis. No aortic regurgitation. AORTIC ROOT: Normal diameter and appearance. PULMONIC VALVE: Normal thickness and mobility. No stenosis. PERICARDIUM: No evidence of pericardial effusion. IVC: Collapses with inspirations. CONCLUSION: 1. Global left ventricular systolic function is normal; visually estimated ejection fraction is 55 to 60% 2. Normal right ventricular size and systolic function 3. Left atrium is moderately dilated 4. Unable to assess diastolic function 5. No significant valvular abnormalities Adult Echocardiography Procedure Report Left Ventricle LVEDD (3.7 - 5.6 cm): 4.28 cm LVESD (2.2 - 4.0 cm): 3.00 cm LVIVS thickness (0.6 - 1.2 cm): 0.87 cm LVPW thickness (0.5 - 1.0 cm): 0.92 cm LVOT Max Gradient: 1.46 mm[Hg], 1.46 mm[Hg] LVOT Area (cm2): 0.60 m/s Peak Velocity (LVOT): 0.60 m/s, 0.60 m/s Mean Velocity (LVOT): 0.44 m/s LVOT Diameter 2.00 cm Left Atrium Left Atrium Systolic Dimension: 4.45 cm Mitral Valve Mitral Valve E-Wave Peak Velocity: 0.69 m/s Right Ventricle Aorta AO Root Diam: 3.35 cm Aortic Valve AoV Area (Peak Will): 2.63 cm2, 2.88 cm2, 2.42 cm2 AoV Area (VTI): 2.53 cm2, 3.09 cm2, 2.13 cm2 Peak Velocity(Antegrade Flow): 0.66 m/s, 0.79 m/s Peak Gradient(Antegrade Flow): 1.75 mm[Hg], 2.48 mm[Hg] Mean Velocity(Antegrade Flow): 0.45 m/s, 0.53 m/s Mean Gradient(Antegrade Flow): 0.92 mm[Hg], 1.34 mm[Hg] Velocity Time Integral: 11.72 cm, 16.25 cm Tricuspid Valve Peak Velocity (Regurgitant Flow): 2.20 m/s Pulmonic Valve Peak Velocity: 0.62 m/s Peak Gradient: 1.86 mm[Hg], 0.97 mm[Hg], 1.74 mm[Hg], 1.71 mm[Hg] Right Atrium Right Atrium Systolic Pressure: 40.69 ml, 40.69 ml Dictated by: Goldie Waldrop M.D. on 11/15/2024 at 12:02 Approved by: Goldie Waldrop M.D. on 11/15/2024 at 12:04 Dictated By: Goldie Waldrop M.D. Signed By: 11/15/24 1206 DD/ 1204 TD/TT: [employer] Ticket Checker: [place] [address] Cardiology Report Signed Patient: NEREIAD AGOSTO MR#: [id number] : 1940 Acct:[id number] Age/Sex: 84 / F ADM Date: 11/15/24 Loc: CARD Attending Dr: Goldie Waldrop M.D. Ordering Physician: Goldie Waldrop M.D. Date of Service: 11/15/24 Procedure(s): CA ech o doppler complete Accession Number(s): [id number] cc: Goldie Waldrop; Kole Servin M.D. Patient Name: NEREIDA AGOSTO MR#: [id number] : 1940 Exam Date: 11/15/2024 Ordering Doctor: DR GOLDIE WALDROP M.D. ECHOCARDIOGRAM REPORT PROCEDURE: CA ECHO DOPPLER COMPLETE INDICATIONS: Takotsu weston cardiomyopathy COMPARISON: None. DESCRIPTION: COMPLET E ECHOCARDIOGRAM Real-time transthoracic echocardiography wit h 2D, M-mode, spectral and color flow Doppler performed. QUALITY: Technical quality was good. LEFT VENTRICLE: Norm al chamber size. Normal left ventricular wall thickness. LV EF: Global left ventricular systolic function is normal; visually estimated ejection fraction is 55 to 60%. No significant wall motion abnormalities. DIASTOLIC: Not adequately assessed due to heart rhythm. ATRIAL SEPTUM: Visua lly appears intact. LEFT ATRIUM: Moderat e dilatation. RIGHT ATRIUM: Normal chamber size. RIGHT VENTRICLE: Nor mal chamber size. Normal right ventricular systolic function. TRICUSPID VALVE: Nor mal mobility and thickness. No stenosis with trivial regurgitation. No evidence of pulmonary hypertension. RVSP 22 mmHg MITRAL VALVE: Normal mobility and thickness. No evidence of mitral valve stenosis. There is n o mitral annular calcification. No mitral regurgitation. AORTIC VALVE: Normal trileaflet appearance. Thickened aortic valve. Normal leaflet mobility. No evidence of aortic valve stenosis. No aortic regurgitation. AORTIC ROOT: Normal diameter and appearance. PULMONIC VALVE: Norm al thickness and mobility. No stenosis. PERICARDIUM: No evidence of pericardial effusion. IVC: Collapses with inspirations. CONCLUSION: 1. Global left ventricular systolic function is normal; visually estimated ejection fraction is 55 to 60% 2. Normal right ventricular size and systolic function 3. Left atrium is moderately dilated 4. Unable to assess diastolic function 5. No significant valvular abnormalities Adult Echocardiograp hy Procedure Report Left Ventricle LVEDD (3.7 - 5.6 cm) : 4.28 cm LVESD (2.2 - 4.0 cm) : 3.00 cm LVIVS thickness (0.6 - 1.2 cm): 0.87 cm LVPW thickness (0.5 - 1.0 cm): 0.92 cm LVOT Max Gradient: 1 .46 mm[Hg], 1.46 mm[Hg] LVOT Area (cm2): 0.6 0 m/s Peak Velocity (LVOT) : 0.60 m/s, 0.60 m/s Mean Velocity (LVOT) : 0.44 m/s LVOT Diameter 2.00 cm Left Atrium Left Atrium Systolic Dimension: 4.45 cm Mitral Valve Mitral Valve E-Wave Peak Velocity: 0.69 m/s Right Ventricle Aorta AO Root Diam: 3.35 cm Aortic Valve AoV Area (Peak Will): 2.63 cm2, 2.88 cm2, 2.42 cm2 AoV Area (VTI): 2.53 cm2, 3.09 cm2, 2.13 cm2 Peak Velocity(Antegr perla Flow): 0.66 m/s, 0.79 m/s Peak Gradient(Antegr perla Flow): 1.75 mm[Hg], 2.48 mm[Hg] Mean Velocity(Antegr perla Flow): 0.45 m/s, 0.53 m/s Mean Gradient(Antegr perla Flow): 0.92 mm[Hg], 1.34 mm[Hg] Velocity Time Integr al: 11.72 cm, 16.25 cm Tricuspid Valve Peak Velocity (Regurgitant Flow): 2.20 m/s Pulmonic Valve Peak Velocity: 0.62 m/s Peak Gradient: 1.86 mm[Hg], 0.97 mm[Hg], 1.74 mm[Hg], 1.71 mm[Hg] Right Atrium Right Atrium Systoli c Pressure: 40.69 ml, 40.69 ml Dictated by: Goldie Waldrop M.D. on 11/15/2024 at 12:02 Approved by: Goldie Waldrop M.D. on 11/15/2024 at 12:04 Dictated By: Goldie Waldrop M.D. Signed By: 11/15/24 1206 DD/ 1204 TD/TT: [employer] Ticket Checker: VITAMIN D 25 [place] Reviewed date:04/24/2024 02:58:24 PM Interpretation: Performing Lab: Notes/Report: [facility] , Vitamin D 104.0 <20 ng/mL Vit D deficient 20-<30 ng/mL Vit D insufficient 30-100 ng/mL Vit D sufficient >100 ng/mL Potential Toxicity Performing Lab: see note ML - [facility] LB PROF 14(COMP METB) Reviewed date:04/24/2024 02:58:24 PM Interpretation: Performing Lab: Notes/Report: [facility] , Sodium 142 136-145 mmol/L Potassium 4.5 3.5-5.1 mmol/L Chloride 104 98-107 mmol/L Carbon Dioxide 32.8 21.0-32.0 mmol/L Anion Gap 9.7 Glucose 90 74-106 mg/dL Blood Urea Nitrogen 17.0 7.0-18.0 mg/dL Creatinine 1.16 0.55-1.02 mg/dL Estimated GFR ( Kavya 54 >=60 Estimated GFR (Non- Deborah 45 >=60 BUN Creatinine Ratio 14.7 Calcium 9.8 8.5-10.1 mg/dL Bilirubin Total 0.6 0.2-1.0 mg/dL Aspartate Amino Transferase 20 15-37 U/L Alanine Aminotransferase 15 14-59 U/L Alkaline Phosphatase 65 46-116 U/L Total Protein 6.6 6.4-8.2 g/dL Albumin Level 3.4 3.4-5.0 g/dL Globulin 3.2 Albumin Globulin Ratio 1.1 Performing Lab: see note ML - [facility] LB Reason For Referral Reason balance therapy Diagnosis 1 Poor balance (R26.89 ) Referral Organization [facility] Medicine Referring Provider First Name Manuel Referring Provider Last Name Gareth Referring Provider Speciality Family Med icine Referred Provider TB, Physical Therap y Referred Provider Specialty Physical Med icine and Rehabilitation Referral Priority Routine Medications Medication SIG (Take, Route, Frequency, Duration) Notes Start Date End Date Status Potassium Chloride ER 20 MEQ 1 tablet wi th food Orally Once a day Active Furosemide 20 mg TAKE 1 TABLET DAILY Active Levothyroxine Sodium 50 MCG TAKE 1 TABLET DAILY Active Carvedilol 12.5 mg TAKE 1 TABLET TWICE A DAY Active Lisinopril 10 MG 1 tablet Orally Once a day Active Meclizine HCl 25 mg TAKE 1 TABLET TWICE A DAY Active Calcium 600 MG 1 tablet with meals Orally Twice a day Active Eliquis 5 mg TAKE 1 TABLET TWICE A DAY Active Ferrous Sulfate 325 (65 Fe) MG 1 tablet Orally every other day 10/25/2024 Active Spironolactone 25 MG 1/2 tablet Oral twi ce daily for 90 days Active Alendronate Sodium 70 mg TAKE 1 TABLET O NCE A WEEK 30 MINUTES BEFORE THE FIRST FOOD, BEVERAGE, OR MEDICINE OF THE DAY WITH PLAIN WATER Active Vitamin D 25 MCG (1000 UT) 1 tablet Oral ly Once a day Active Social History Tobacco Use: Social History Observation Description Date Details (start date - stop date) Former Smoker 09/06/1964 - 09/06/1980 Tobacco Use/Smoking Question Answer Notes Patient is a former smoker When did you start smoking? 09/06/1964 When did you stop smoking? 09/06/1980 How long has it been since you last smoked? > 10 years Alcohol Screen (Audit-C) Question Answer Notes Did you have a drink containing alcohol in the p ast year? No Points 0 Interpretation Negative AUDIT-C (Standard) Question Answer Notes Did you have a drink containing alcohol in the p ast year? 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 Problem Closed fracture of shaft of humerus (08243669) Displaced comminuted fracture of shaft of humerus, left arm, initial encounter for closed fracture (S42.352A) Active confirmed Problem Closed intertrochanteric fracture (38237876) Displaced intertrochanteric fracture of left femur, initial encounter for closed fracture (S72.142A) Active confirmed Problem Closed fracture of fibula (773344608) Other fracture of upper and lower end of left fibula, initial encounter for closed fracture (S82.832A) Active confirmed Problem Closed bimalleolar fracture (83994810) Nondisplaced bimalleolar fracture of left lower leg, initial encounter for closed fracture (S82.845A) Active confirmed Problem Hypertension (14581965) Hypertension (I10) Active confirmed Problem Congestive heart failure (79182423) CHF (congestive heart failure) (I50.9) Active confirmed Problem Hypothyroidism (41781726) Hypothyroidism (E03.9) Active confirmed Problem Atrial fibrillation (disorder) (93978693) Afib (I48.91) Active confirmed Problem Left ventricular hypertrophy (00560399) Left ventricular hypertrophy (I51.7) Active confirmed Problem Diverticular disease of colon (323189128) Diverticulosis (K57.90) Active confirmed Problem Impacted cerumen (77758805) Cerumen impaction (H61.20) Active confirmed Problem Osteoporosis (41273428) Osteoporosis (M81.0) Active confirmed Problem Edema of left lower extremity (386693918) Edema of left lower extremity (R60.0) Active confirmed Problem Acute bronchitis (45420856) Acute bronchitis (J20.9) Active confirmed Problem Well adult (547464629) Well adult (Z00.00) Active confirmed Problem Polyp colon (78405827) Colon polyp (K63.5) Active confirmed Problem Bronchiectasis (99797344) Bronchiectasis (J47.9) Active confirmed Problem Pre-surgery evaluation (029135282) Pre-op exam (Z01.818) Active confirmed Problem Near syncope (811902366) Near syncope (R55) Active confirmed Problem Late effect of fracture of lower extremities (23273107) Nondisplaced fracture of medial malleolus of left tibia, sequela (S82.55XS) Active confirmed Problem Takotsubo cardiomyopathy (002653271) Takotsubo cardiomyopathy (I51.81) Active confirmed Problem Aortic valve regurgitation (45863779) Aortic valve regurgitation (I35.1) Active confirmed Problem Poor balance (398439450) Poor balance (R26.89) Active confirmed Problem At risk for falls (951354017) At risk for falls (Z91.81) Active confirmed Problem Cardiomegaly (8451044) Atrial enlargement, left (I51.7) Active confirmed Problem Left heart failure (65052036) Heart failure, left, with LVEF <=30% (I50.1) Active confirmed Problem Disease caused by Severe acute respiratory syndrome coronavirus 2 (disorder) (506384521) COVID-19 virus infection (U07.1) Active confirmed Vital Signs Blood pressure diastolic 92 mm Hg 10/25/2024 Height 58 in 10/25/2024 Blood pressure systolic 132 mm Hg 10/25/2024 Weight 159.0 lbs 10/25/2024 BMI 33.23 kg/m2 10/25/2024 Encounters Encounter Location Date Provider Diagnosis [address] [address] 04/03/[address] [address] 04/24/[address] [address] 07/13/[address] [address] 04/24/2024 Manuel Servin Hypertension I10 ; Hypothyroidism E03.9 ; CHF (congestive heart failure) I50.9 ; Osteoporosis M81.0 ; Takotsubo cardiomyopathy I51.81 and Poor balance R26.[address] [address] 10/25/2024 Manuel Servin CHF (congestive hear t failure) I50.9 ; Hypothyroidism E03.9 ; Hypertension I10 and Takotsubo cardiomyopathy I51.81 Assessments Encounter Date Diagnosis (ICD Code) Assessment Notes Treatment Notes Treatment Clinical Notes Section Notes 04/24/2024 Hypertension (ICD-10 - I10) good control 04/24/2024 Hypothyroidism (ICD-10 - E03.9) checking labs 10/25/2024 CHF (congestive heart failure) (ICD-10 - I50.9) 10/25/2024 Hypothyroidism (ICD-10 - E03.9) 10/25/2024 Hypertension (ICD-10 - I10) 04/24/2024 CHF (congestive heart failure) (ICD-10 - I50.9) clear lungs 04/24/2024 Osteoporosis (ICD-10 - M81.0) looking int osteoporisis - prolia 10/25/2024 Takotsubo cardiomyopathy (ICD-10 - I51.81) 04/24/2024 Takotsubo cardiomyopathy (ICD-10 - I51.81) seeing cardiology 04/24/2024 Poor balance (ICD-10 - R26.89) needs PT Plan Of Treatment Pending Test Test Name Order Date CMP (COMPLETE METABOLIC PANEL) 3 CMP (COMPLETE METABOLIC PANEL) 4 UA (URINALYSIS, COMPLETE) 03/23/2023 HEMOGLOBIN A1C (GLYCO) 04/24/2024 HEMOGLOBIN A1C (GLYCO) 06/30/2023 IRON, TOTAL 06/30/2023 IRON, TOTAL 04/24/2024 LIPID PANEL (CHOL/TRIG/HDL/LDL) 04/24/20 24 CBC WITH DIFF 04/24/2024 CBC WITH DIFF 06/30/2023 VITAMIN D, 25 LEVEL (TOTAL) 04/24/2024 Urine Culture 03/23/2023 URINE MICROSCOPIC ONLY 03/23/2023 US PELVIS 03/23/2023 THYROID PANEL (T4/TSH/FREE T3) 3 THYROID PANEL (T4/TSH/FREE T3) 4 Next Appt Details Provider Name:Manuel Servin, 10:30:00 AM, [address] [place], [address], Insurance Providers Payer Name Payer Address Payer Phone Subscriber Number Group Number Insured Name Patient Relationship to Insured Coverage Start Date Coverage End Date [place] [address] [place] [address] [id number] Nereida Agosto Self - patient is the insured [facility] [address] [place] [address] [phone] [id number] Nereida Agosto Self - patient is the insured Medical (General) History Medical History History ICD Code COVID-19 virus infection U07.1 Nondisplaced bimalleolar fra cture of left lower leg, initial encounter for closed fracture S82.845A Other fracture of upper and lower end of left fibula, initial encounter for closed fracture S82.832A Nondisplaced fracture of medial malleolu s of left tibia, sequela S82.55XS Edema of left lower extremity R60.0 Bronchiectasis J47.9 At risk for falls Z91.81 Displaced comminuted fractur e of shaft of humerus, left arm, initial encounter for closed fracture S42.352A Displaced intertrochanteric fracture of left femur, initial encounter for closed fracture S72.142A Cerumen impaction H61.20 Hypothyroidism E03.9 Atrial enlargement, left I51.7 Aortic valve regurgitation I35.1 Heart failure, left, with LVEF < =30% I5 0.1 Takotsubo cardiomyopathy I51.81 Afib I48.91 CHF (congestive heart failure) I50.9 Acute bronchitis J20.9 Osteoporosis M81.0 Well adult Z00.00 Near syncope R55 Left ventricular hypertrophy I51.7 Hypertension I10 Surgical History Surgery Date(Month/Year) Colonoscopy- colon polyps/ diverticulosi s 04/26/2024 Colonoscopy 02/24/2023 Tubal Ligation left hip surgery- metal piece Hospitalization History Reason Date(Month/Year) see above
== END 2025-01-26 12:44 | disposition home or self-care (01) ==
LOC: MAMMO 12:43
PROVIDERS: PCP Family Medicine; Visit Provider Family Medicine
DX: Z12.31 Encounter for screening mammogram for malignant neoplasm of breast (principal)
CPT/HCPCS: 77063; 77067

== ENCOUNTER 2025-02-28 08:46 | Outpatient (OUT) | payer MEDICARE, OTHER, SELFPAY ==
--- OUTSIDE RECORDS SUMMARY | 2024-07-13 05:57 | XMS_ITS ---
Author Organization [facility] in [place] Address [address] [place] [address] Care Team Providers Care Insulator Tester Name Role Phone Manuel Servin Primary Care Provider REASON FOR VISIT Meclizine Medications Medication SIG (Take, Route, Fr equency, Duration) Notes Start Date End Date Status Meclizine HCl 25 mg TAKE 1 TABLET TWICE A DAY Active Encounters Encounter Location Date Provider Diagnosis [facility] [address] [place] [address] 07/13/2024 Maunel Servin Plan Of Treatment Medication Medication Name Sig Start Date Stop Date Notes Meclizine HCl 25 mg TAKE 1 TABLET TWICE A DAY Next Appt Details Provider Name:Manuel Servin, 10:30:00 AM, [address] [place], [address], Progress Notes * Nereida AGOSTO PDOB:[birth year] (84 yo F)Acc No.[id number]:07/13/2024 Patient: Belle Nereida MORILLO :1940 A ge:84 Y S ex:Female Address:[address] [place] [address], [phone] * Refills Refill Meclizine HCl Tablet, 25 mg, 60 Tablet, TAKE 1 TABLET TWICE A DAY, Refills=0 * true * Date: Generated for Kleber martinez/Sina/eTransmitting on: 0 02/28/2025 08:50 AM EDT
--- OUTSIDE RECORDS SUMMARY | 2024-10-25 06:15 | XMS_ITS ---
Author Organization [facility] in [place] Address [address] [place] [address] Care Team Providers Care Edge Finisher Name Role Phone Manuel Servin Primary Care Provider [phone] Allergies Allergen (clinical drug ingredient) Drug/Non Drug [...] 10/25/2024 Encounters Encounter Location Date Provider Diagnosis [facility] [address] [place] [id number] 10/25/2024 Manuel Servin CHF (congestive hear t [...] Provider Name:Manuel Servin, 10:30:00 AM, [address] [place], [phone], Progress Notes * Nereida AGOSTO PDOB:[birth year] (84 yo F)Acc No.[id number]:10/25/2024 Progress Note Patient: Belle MORILLO Nereida Rubin Provider: Kenia Servin ([facility])MD :1940 A ge:84 Y S ex:Female Date:10/25/2024 Address:[address] [place], [place] [id number] Check In:09:57 AM ESTCheck O ut:10:54 AM [...] Procedure Codes: * Preventive Medicine: Screenings/Counseling: B PR ACTION PLAN Above Normal BMI Follow-up D ietary management education, guidance, and counseling F ALL RISK SCREENING Fall Risk Assessment: N o falls in the past year * * Sign off status: Completed Visit Status: C HK (Check Out) true * Provider: Kenia Servin ([facility])MD Date: 0 10/25/2024 Generated for Shreyai michelle/Sina/eTransmitting on: 0 02/28/2025 08:49 AM EDT History and Physical Notes * HPI [...] Poor appetite or overeating: More than h usp the days Feeling bad about yourself o [...]
--- OUTSIDE RECORDS SUMMARY | 2025-01-27 07:52 | XMS_ITS ---
Author Organization [facility] in [place] Address [address] [place] [address] Care Team Providers Care Tractor Drill Operator Name Role Phone Manuel Servin Primary Care Provider [phone] REASON FOR VISIT Mammogram Results Encounters Encounter Location Date Provider Diagnosis [facility] [address] [place] [address] 01/27/2025 Manuel Servin Plan Of Treatment Next Appt Details Provider Name:Manuel Servin, 10:30:00 AM, [address] [place], [address], Progress Notes * Nereida AGOSTO PDOB:[birth year] (84 yo F)Acc No.[id number]:01/27/2025 Patient: Nereida GASCA :1940 A ge:84 Y S ex:Female Address:[address] [place] [address], [phone] * true * Date: Generated for Printi ng/Faxing/eTransmitting on: 0 02/28/2025 08:49 AM EDT
--- OUTSIDE RECORDS SUMMARY | 2025-02-15 10:40 | XMS_ITS | Encounter Summary ---
Author Organization [facility] Address [address] [place] [address] Care Team Providers Care Computational Mathematician Name Role Phone Kole Servin MD Primary Care Provider [phone] Reason for Referral * Cardiac Stress Testing (Routine) - Pending Review Specialty Diagnoses / Procedures Referred By Contac t Referred To Contact Cardiology Diagnoses PAF (paroxysmal atrial fibrillation) (CMS/HCC) Procedures Holter monitor - 48 hour Halima Lorenzo CNP [address] [place] [address] Phone: tel: fax: Referral ID Status Reason Start Date Expiration Date V isits Requested Visits Authorized [id number] Pending Review 02/15/2025 02/15/2026 1 1 * (Routine) - Pending Review Specialty Diagnoses / Procedures Referred By Contac t Referred To Contact Diagnoses Palpitations PAF (paroxysmal atrial fibrillation) ([facility]/HCC) Procedures ECG 12 lead unit performed Halima Lorenzo CNP [address] [place] [address] Phone: tel: fax: Referral ID Status Reason Start Date Expiration Date V isits Requested Visits Authorized [id number] Pending Review 02/15/2025 02/15/2026 1 1 * Imaging (Routine) - Pending Review Specialty Diagnoses / Procedures Referred By Contac t Referred To Contact Cardiology Diagnoses Palpitations PAF (paroxysmal atrial fibrillation) (CMS/HCC) Shortness of breath Procedures Transthoracic echo (TTE) complete Halima Lorenzo CNP [address] [place] [address] Phone: tel: fax: Referral ID Status Reason Start Date Expiration Date Visits Requested Visits Authorized [id number] Pending Review Perform Procedure 02/15/2025 02/15/2026 1 1 Reason for Visit * Reason Comments Shortness of Breath Atrial Fibrillation Encounter Details Date Type Department Care Team (Late st Contact Info) Description 02/15/2025 10:40 AM EDT Office Visit [facility] Heart at [facility] [address] [place] [address] Halima Lorenzo CNP [address] [place] [address] Palpitations (Primary Dx); PAF (paroxysmal atrial fibrillation) (CMS/HCC); Shortness of breath Social History Tobacco Use Types Packs/Day Years Used Date Smoking Tobacco: Former Cigarettes Smokeless Tobacco: Never Alcohol Use Standard Drinks/Week Comments Yes 0 (1 standard drink = 0.6 oz pur e alcohol) occasional [place] Safety & Environment Answer Date Rec orded Fear of Current or Ex-Partner Not on file Emotionally Abused Not on file 10/28/2023 Physically Abused Not on file 10/28/2023 Sexually Abused Not on file 10/28/2023 Physically or Sexually Abused Not on file Comments Unknown Sex and Gender Information Value Date Recorded Sex Assigned at Not on file Legal Sex Female 12:14 AM EDT Gender Identity Not on file Sexual Orientation Not on file documented as of this encounter Last Filed Vital Signs Vital Sign Reading Time Taken Comments Blood Pressure 112/76 02/15/2025 10:37 AM EDT Pulse - - Temperature - - Respiratory Rate - - Oxygen Saturation 96% 02/15/2025 10:37 AM EDT Inhaled Oxygen Concentration - - Weight 72.1 kg (159 lb) 02/15/2025 10:37 AM EDT Height 149.9 cm (4' 11 ) 02/15/2025 10:37 AM EDT Body Mass Index 32.11 02/15/2025 10:37 AM EDT documented in this encounter Progress Notes * Fabienne Vidal MA - 02/15/2025 10:40 AM EDT Patient is here today for a 1 year follow up. Patient states, she is losing her balance, fatigue, SOB,and BOOTH. Review of Systems Constitutional: Positive for malaise/fatigue. Cardiovascular: Positive for dyspnea on exertion. Respiratory: Positive for shortness of breath. Neurological: Positive for loss of balance. * Halima Lorenzo CNP - 02/15/2025 10:40 AM EDT Images from the original note were not included. Cardiology [facility] Note SUBJECTIVE Chief Complaint Patient presents with Shortness of Breath Atrial Fibrillation Nereida Agosto is a 84 y.o. female here for follow-up. PMHx: Takotsubo cardiomyopathy, HTN, PAF with prior hx of cardioversion, mitral valve regurg 02/15/2025 Patient is here today for a 1 year follow up. Patient states, she is losing her balance, fatigue, SOB,and BOOTH. She feels like her BOOTH and fatigue are worse than when we saw her last year. She notes that sx's have been worsening the past couple of months. She cannot walk from room to room in her house without feeling short of breath. Denies weight gain, orthopnea, PND, LE edema. She has some dizzienss if she stands too quickly. She denies c/o chest pain. She had a colonoscopy back in September, - this needed repeated and the repeat she was told was okay. 10/28/2023 Patient here for 3 mo follow up [...] electrocardiography Traumatic injury of head Vasovagal syncope Cardiomegaly History of colon cancer History of colonic polyps Obesity due to excess calories Past Medical History: Diagnosis Date Abnormal ECG Arrhythmia Atrial fibrillation (CMS/HCC) Hypertension Hypothyroidism Takotsubo cardiomyopathy Family History Problem Relation Name Age of Onset No Known Problems Mother No Known Problems Father Social History Tobacco Use Smoking status: Former Types: Cigarettes Smokeless tobacco: Never Substance Use Topics Alcohol use: Yes Comment: occasional Drug use: Never Allergies Allergen Reactions Alprazolam Unknown Sulfa (Sulfonamide Antibiotics) Review of Systems Constitutional: Positive for malaise/fatigue. Cardiovascular: Positive for dyspnea on exertion. Respiratory: Positive for shortness of breath. Neurological: Positive for loss of balance. OBJECTIVE Visit Vitals BP 112/76 (BP Location: Right arm, Patient Position: Sitting) Ht 1.499 m (4' 11 ) Wt 72.1 kg (159 lb) SpO2 96% BMI 32.11 kg/m?? Smoking Status Former BSA 1.73 m?? Medications: Current Outpatient Medications: apixaban (Eliquis) 5 mg tablet, Take 1 tablet by mouth in the morning and at bedtime., Disp: , Rfl: aspirin 81 mg EC tablet, Take 81 mg by mouth 1 (one) time., Disp: , Rfl: calcium 500 mg calcium [...] by mouth if needed., Disp: , Rfl: potassium chloride CR (K-Tab) 20 mEq ER tablet, Take 20 mEq by mouth in the morning., Disp: , Rfl: spironolactone (Aldactone) 25 mg tablet, TAKE ONE-HALF (1/2) TABLET IN THE MORNING, Disp: 45 tablet, Rfl: 3 Physical Exam Vitals reviewed. Constitutional: Appearance: Normal appearance. She is normal weight. HENT: Head: Normocephalic and atraumatic. Right Ear: External ear normal. Left Ear: External ear normal. Eyes: Extraocular Movements: Extraocular movements intact. Pupils: Pupils are equal, round, and reactive to light. Neck: Vascular: No carotid bruit. Comments: No JVD Cardiovascular: Rate and Rhythm: Normal rate. Rhythm irregular. Pulses: Normal pulses. Heart sounds: Murmur heard. [...] Thought content normal. Judgment: Judgment normal. Labs/Testing/Procedures: 04/24/2024 Hgb 13.5, plt 170 Cr 1.16, BUN 17, K 4.5, Na 142, eGFR 45, AST 20, ALT 15 HgbA1c 5.1 NTproBNP 1303 Chol 151, trig 92, LDL 86.6, HDL 46 TSH 1.523 10/28/2023 Cr 1.02, BUN 18, K 4.1, Na 147, eGFR 52 Labs 01/20/2022 Hgb 11.5, plt 165 Cr. 1.11, BUN 18, K 4.9, GFR 47, ALT 6, AST 12 Lipids: chol 153, HDL 54, trig 101, LDL 78.8 NTproBNP 464 TSH 1.061 Legacy Encounter on 12/23/2018 Component Date Value Ref Range Status Ventricular Rate 12/23/2018 65 BPM Final Atrial Rate 12/23/2018 65 BPM Final [place] Interval 12/23/2018 156 ms Final QRS DURATION 12/23/2018 92 ms Final QT Interval 12/23/2018 494 ms Final QTC CALCULATION(BEZET) 12/23/2018 513 ms Final P [place] 12/23/2018 46 degrees Final R-[place] 12/23/2018 -44 degrees Final T Wave [place] 12/23/2018 -150 degrees Final Diagnosis 12/23/2018 Final Value:Sinus rhythm with Premature atrial complexes Left axis deviation Marked T wave abnormality, consider anterolateral ischemia Prolonged QT Abnormal ECG When compared with ECG of 23-DEC-2018 12:25, Sinus rhythm has replaced Atrial fibrillation Vent. rate has decreased BY 52 BPM Confirmed by Jessica BURR, L.S. (2) on 12/23/2018 4:02:27 PM Lab Results Component Value Date BNP 369 (H) 12/15/2018 ECHO 11/15/2024 CONCLUSION: 1. Global left ventricular systolic function is normal; visually estimated ejection fraction is 55 to 60% 2. Normal right ventricular size and systolic function 3. Left atrium is moderately dilated 4. Unable to assess diastolic function 5. No significant valvular abnormalities Echocardiogram 11/18/2023: Conclusion: Global left ventricular systolic function is normal; visually estimated ejection fraction is 55 to 60% 2. Normal right ventricular size and systolic function 3. Biatrial enlargement Mild to moderate mitral regurgitation was seen in 07/2023 Echocardiogram: 07/12/2023 Global left ventricular systolic function [...] Joules of biphasic energy. Patient remained in normalsinus rhythm with PACs after cardioversion. Cardiac cath 12/15/2018: Mild CAD ASSESSMENT/PLAN: Diagnosis Plan 1. Takotsubo cardiomyopathy - Her most recent echocardiogram from 11/2024 showed preserved LVEF. -NYHA class II -Compensated on exam -Continue lasix 20mg daily -GDMT: continue lisinopril, carvedilol, spironolactone -F/U ECHO ordered 2. Paroxysmal atrial fibrillation (CMS/HCC) -She is in a.fib on exam, confirmed on EKG, rate controlled -This may be the cause of her increased fatigue, SOB -Will apply a holter monitor for 14 days to assess her a.fib burden. -Follow-up ECHO ordered. -Denies bleeding issues -Continue BB and Eliquis -No amio in light of abnormal PFTs 3. Nonrheumatic mitral valve regurgitation -Mild to Moderate per 07/2023 ECHO -Continue to monitor 4. HTN - controlled, continue lisinopril, carvedilol 5. Dizziness -Improved -Discussed changing positions slowly, wearing compression stockings while awake, encouraged routineexercise. 6. Dyspnea -Worsened recently in the past couple of months. -Will obtain labs, ECHO, holter, PFTs. Follow-up in 6 weeks with EP to review testing and possible management for a.fib. Halima Lorenzo, KAILEY UTP Cardiovascular Medicine documented in this encounter Plan of Treatment Upcoming Encounters Date Type Department Care Team (Late st Contact Info) Description 04/10/2025 11:30 AM EDT Office Visit [facility] Heart at [facility] [address] [place] [address] Zeb Chicas MD [address] [place] [address] Scheduled Orders Name Type Priority Associated Diagnoses Order Schedule Comprehensive metabolic panel Lab Routine Shortness of breath Expected: 02/15/2025 (Approximate), Expires: 02/15/2026 B-type natriuretic peptide Lab Routine Shortness of breath Expected: 02/15/2025 (Approximate), Expires: 02/15/2026 CBC Lab Routine Shortness of breath Expected: 02/15/2025 (Approximate), Expires: 02/15/2026 Transthoracic echo (TTE) complete Echocardiography Routine Palpitations PAF (paroxysmal atrial fibrillation) (CMS/HCC) Shortness of breath Expected: 02/15/2025 (Approximate), Expires: 02/15/2027 TSH3 Reflex to FT4 Lab Routine PAF (paroxysmal atrial fibrillation) (CMS/HCC) Expected: 02/15/2025 (Approximate), Expires: 02/15/2026 Holter monitor - 48 hour Cardiac Services Routine PAF (paroxysmal atrial fibrillation) (CMS/HCC) Expected: 02/15/2025 (Approximate), Expires: 02/15/2027 documented as of this encounter Procedures Procedure Name Priority Date/Time Associated Diagnosis Comments ECG 12 LEAD UNIT PERFORMED Routine 02/15/2025 11:41 AM EDT Palpitations PAF (paroxysmal atrial fibrillation) (CMS/HCC) documented in this encounter Results * ECG 12 lead unit performed (02/15/2025 11:41 AM EDT) Halima Lorenzo CNP ECG ORDERABLES Final Result documented in this encounter Visit Diagnoses Diagnosis Palpitations- Primary PAF (paroxysmal atrial fibrillation) (CMS/HCC) Atrial fibrillation Shortness of breath documented in this encounter Care Teams Computational Mathematician Relationship Specialty Start Date End Date Kole Servin MD [address] [facility] [place] [id number] PCP - General 05/28/22 documented as of this encounter
--- OUTSIDE RECORDS SUMMARY | 2025-02-28 08:50 | XMS_ITS | Encounter Summary ---
Author Organization [facility] Address [address] [place] [address] Care Team Providers Care Search Director Name Role Phone Kole Servin MD Primary Care Provider [phone] Encounter Details Date Type Department Care Team (Late Contact Info) Description 04/04/2024 Orders Only [facility] OB [address] [place] [phone] Alicia Field MA [address] [place] [address] Social History Tobacco Use Types Packs/Day Years [...] 04/04/2025 11:00 AM EDT Office Visit [facility] [address] [place] [address] Meera Jimenez PA [address] [place], [place] [phone] documented as of this encounter Procedures Procedure Name Priority Date/Time Associated Diagnosis Comments PAP SMEAR Routine 03/29/2024 12:00 AM EDT documented in this encounter Results * Pap Smear (03/29/2024 12:00 AM EDT) Swab Cervical swab / Unknown us Meera [facility] CYTOLOGY ORDERABLES Final Re sult EXTERNAL LAB documented in this encounter Visit Diagnoses Not on filedocumented in this encounter Care Teams Search Director Relationship Specialty Start Date End Date Kole Servin MD PCP - General Family Medicine 04/06/23 documented as of this encounter
--- OUTSIDE RECORDS SUMMARY | 2025-02-28 08:50 | XMS_ITS | Referral Summary ---
Author Organization [facility] Address [address] [place] [address] Care Team Providers Care Sheriff Sergeant Name Role Phone Kole Servin MD Primary Care Provider [phone] Encounters Date Type Department Care Team Description 02/15/2025 Orders Only [facility] [address] [place] [address] Ashley Tran MA Shortness of breath (Primary Dx) 02/15/2025 10:40 AM EDT Office Visit [facility] [address] [place] [facility] [address] Halima Lorenzo CNP Palpitations (Primary Dx); PAF (paroxysmal atrial fibrillation) (CMS/HCC); Shortness of breath from Last 3 Months Allergies Active Allergy Reactions Criticality Noted Date Comments Alprazolam Unknown 03/29/2024 Sulfa (Sulfonamide Antibiotics) 05/08 Medications apixaban (Eliquis) 5 mg tablet Take 1 tablet by mouth in the morning and at bedtime. Active carvedilol (Coreg) 12.5 mg tablet Take 1 tablet by mouth in the morning and at bedtime. Active furosemide (Lasix) 20 mg tablet Take 1 tablet by mouth in the morning. Active levothyroxine (Synthroid, Levoxyl) 50 mcg tablet Take 1 tablet every day by oral route for 30 days. Active meclizine (Antivert) 25 mg tablet Take 25 mg by mouth if needed. Active cholecalciferol (Vitamin D-3) 25 MCG (1000 UT) capsule Take 1,000 Units by mouth in the morning. Active calcium 500 mg calcium (1,250 mg) tablet Take 1 tablet by mouth in the morning. Active potassium chloride CR (K-Tab) 20 mEq ER tablet Take 20 mEq by mouth in the morning. 3 Active lisinopril 20 mg tabletIndications :Essential hypertension TAKE 1 TABLET IN THE MORNING 90 tablet 3 4 Active spironolactone (Aldactone) 25 mg tabletIndications :Heart failure with mid-range ejection fraction (CMS/HCC) TAKE ONE-HALF (1/2) TABLET IN THE MORNING 45 tablet 3 4 Active aspirin 81 mg EC tablet Take 81 mg by mouth 1 (one) time. 4 Active ferrous sulfate 325 (65 Fe) MG tablet Take 1 tablet every other day by oral route. 02/16/20 25 Discontinu ed(Med List Cleanup) alendronate (Fosamax) 70 mg tablet 3 02/16/20 Discontinu ed(Med List Cleanup) Active Problems Problem Noted Date Diagnosed Date Cardiomegaly 02/15/2025 History of colon cancer 02/15/2025 History of colonic polyps 02/15/2025 Obesity due to excess calories 02/15/2025 Closed fracture of left hip 10/28/202310/08 Fracture [...] cardiomyopathy 09/26/2019 Paroxysmal atrial fibrillation 01/06/2019 Immunizations Immunization Administration Dates Next Due Influenza, Unspecified 06/29/2016 Influenza, trivalent, adjuvanted 07/11/2020 Moderna 12 YR UP Vaccine BiValent Booster 2020,11/14/2020,10/18/2020 Novel [id number], preservative-free 09/14 Pneumococcal Conjugate PCV 13 07/26/2017 [...] Pressure 112/76 02/15/2025 10:37 AM EDT Pulse 78 02/07/2024 9:57 AM EDT Temperature - - Respiratory Rate - - Oxygen Saturation 96% 02/15/2025 10:37 AM EDT Inhaled Oxygen Concentration - - Weight 72.1 kg (159 lb) 02/15/2025 10:37 AM EDT Height 149.9 cm (4' 11 ) 02/15/2025 10:37 AM EDT Body Mass Index 32.11 02/15/2025 10:37 AM EDT Plan of Treatment Upcoming Encounters Date Type Department Care Team (Late st Contact Info) Description 04/10/2025 11:30 AM EDT Office Visit [facility] at [facility] [address] [place] [address] Zeb Chicas MD [address] [place] [address] Procedures Procedure Name Priority Date/Time Associated Diagnosis Comments ECG 12 LEAD UNIT PERFORMED Routine 02/15/2025 11:41 AM EDT Palpitations PAF (paroxysmal atrial fibrillation) ([facility]) from Last 3 Months Results * ECG 12 lead unit performed (02/15/2025 11:41 AM EDT) Halima Mancillaóscar BONNER ECG ORDERABLES Final Result from Last 3 Months Insurance MEDICARE Member Subscriber Plan / Payer (Ef fective 2007-Present) Name:Nereida Agosto Member ID:[id number] Relation to Subscriber:Self Name:Nereida Agosto Subscriber ID:[id number] Payer ID:[id number] Group ID:Not on file Type:Medicare Address: [facility] [place] [id number] [facility] Care Teams Sheriff Sergeant Relationship Specialty Start Date End Date Kole Servin MD [address] [place] [address] PCP - General 05/28/22
--- OUTSIDE RECORDS SUMMARY | 2025-02-28 08:50 | XMS_ITS | Encounter Summary ---
Author Organization [facility] Address [address] [place] [address] Care Team Providers Care Toilet Attendant Name Role Phone Kole Servin MD Primary Care Provider [phone] Encounter Details Date Type Department Care Team (Late Contact Info) Description 04/03/2024 Clinisync Result Encounter [facility] External Department Unsolicited Meera Aguayo PA [address] [facility] [place] [address] Social History Tobacco Use Types Packs/Day Years [...] EDT Office Visit [facility] OB [address] [facility] [place] [address] Meera Aguayo PA [address] [facility] [place] [address] documented as of this encounter Procedures Procedure Name Priority Date/Time Associated Diagnosis Comments XR DEXA AXIAL SKELETON 04/03/2024 9:09 AM EDT documented in this encounter Results * XR DEXA AXIAL SKELETON (04/03/2024 9:09 AM EDT) Anatomical Region Laterality Modality Other 04/03/2024 9:09 AM EDT Narrative 04/03/2024 9:12 AM EDT [address] [address] XRay Report Signed Patient: JOI AGOSTO MR#: [id number] : 1940 Acct:[id number] Age/Sex: 84 / F ADM Date: 04/03/24 Loc: RAD Attending Dr: Meera Aguayo Ordering Physician: Meera Aguayo Date of Service: 04/03/24 Procedure(s): XR DEXA axial skeleton Accession Number(s): [id number] cc: Meera Aguayo; Kole Servin M.D. [address] [address] Patient Name: JOI AGOSTO MRN: [id number] date: 1940 Sex: F Assigned Patient Location: [facility] Current Patient Location: [facility] Accession/Order Number: [id number] Exam Date: 04/03/2024 07:45 Report Date: 04/03/2024 [...] prevention and treatment of osteoporosis. Osteoporos Int. 2021;33(10):4552-7644. doi: 10.1007/c79870-459-90801-j. Epub 2021Jan 01. Erratum in: Osteoporos Int. 2021Apr 02;: PMID: [id number]; PMCID: [id number]. Electronically authenticated by: ELADIO MATTHEWS Date: 04/03/2024 09:09 Dictated By: Eladio Matthews M.D. Signed By: 04/03/24911 DD/ 8 TD/TT: History Faculty Member: Procedure Note Radiology, Radiologist, - 04/03/[address] [address] XRay Report Signed Patient: JOI AGOSTO PMR#: [id number] : 1940cct:[id number] Age/Sex: 84 / FADM Date: 04/03/24 Loc: BET[facility] Attending Dr: Meera Aguayo Ordering Physician: Meera Aguayo Date of Service: 04/03/24 Procedure(s): XR DEXA axial skeleton Accession Number(s): [id number] cc: Meera Aguayo; Kole Servin M.D. [place] [address] Patient Name: JOI AGOSTO MRN: [facility]:[id number] date: 1940 Sex: F Assigned Patient Location: [facility] Current Patient Location: [facility] Accession/Order Number: [id number] Exam Date: 04/03/2024 07:45 Report Date: 04/03/2024 [...] 10-year hip fracture risk >= 3% or [id number] major osteoporosis-related fracture risk >= 20% (i.e., [...] to prevention and treatment of osteoporosis.Osteoporos Int. 2021;33(10):6640-7929. doi: 10.1007/y54870-077-60009-p. Epub . Erratum in: Osteoporos Int. 2021Apr 02;: PMID: [id number]; PMCID: [id number]. Electronically authenticated by: ELADIO MATTHEWS Date: 04/03/2024 09:09 Dictated By: Eladio Matthews M.D. Signed By:04/03/24911 DD/ 8 TD/TT: History Faculty Member: Meera JONES [facility] Final Result documented in this encounter Visit Diagnoses Not on filedocumented in this encounter Care Teams Toilet Attendant Relationship Specialty Start Date End Date Kole Servin MD PCP - General Family Medicine 04/06/23 documented as of this encounter
--- OUTSIDE RECORDS SUMMARY | 2025-02-28 08:50 | XMS_ITS | Encounter Summary ---
Author Organization [facility] Address [address] [place] [address] Care Team Providers Care Profiling Machine Setup Operator Name Role Phone Kole Servin MD Primary Care Provider [phone] Encounter Details Date Type Department Care Team (Late st Contact Info) Description 02/15/2025 Orders Only [address] [address] Ashley Tran MA Shortness of breath (Primary Dx) Social History Tobacco Use Types Packs/Day Years [...] Description 04/10/2025 11:30 AM EDT Office Visit [address] [address] Zeb Chicas MD [address] [place] [address] Scheduled Orders Name Type Priority Associated Diagnoses Orde r Schedule Pulmonary function testing Spirometry; Body Box (lung volumes, airway resistance, and SVC), DLCO PFT Routine Shortness of breath Expected: 02/15/2025 (Approximate), Expires: 02/15/2026 documented as of this encounter Visit Diagnoses Diagnosis Shortness of breath- Primary documented in this encounter Care Teams Profiling Machine Setup Operator Relationship Specialty Start Date End Date Kole Servin MD [address] [place] [address] PCP - General 05/28/22 documented as of this encounter
--- OUTSIDE RECORDS SUMMARY | 2025-02-28 08:50 | XMS_ITS | Clinical Summary ---
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 Social History Tobacco Use Types Packs/Day Years [...] Upcoming Encounters Date Type Department Care Team ([facility] st Contact Info) Description 04/04/2025 11:00 AM EDT Office Visit [facility] OB [address] [facility] [place] [phone] Meera Jimenez PA [address] [facility] [address] [place], [place] [address] Health Maintenance Due Date Last Done Comments Influenza Vaccine (Season Ended) 2025 07/21/2022, 07/11/2020, 06/29/2016 Pneumococcal Vaccine: 65+ Years Completed 7, 06/29/2016 Insurance MEDICARE [facility] Care Teams Casino Cage Cashier Relationship Specialty Start Date End Date Kole Servin MD PCP - General Family Medicine 04/06/23
--- OUTSIDE RECORDS SUMMARY | 2025-02-28 08:50 | XMS_ITS | Encounter Summary ---
Author Organization [facility] Address [address] [facility] [place] [address] Care Team Providers Care Commercial Singer Name Role Phone Kloe Servin MD Primary Care Provider [phone] Encounter Details Date Type Department Care Team ([facility] Contact Info) Description 04/20/2024 Orders Only [facility] [address] [facility] [place] [phone] Meera Jimenez PA [address] [place] [address] [place], [place] [id number] Social History Tobacco Use Types Packs/Day Years Used Date Smoking Tobacco: Never Assessed Comments No Sex and Gender Information Value Date Recorded Sex Assigned at Not on file Legal Sex Female 9:01 AM EDT Gender Identity Not on file Sexual Orientation Not on file documented as of this encounter Plan of Treatment Upcoming Encounters Date Type Department Care Team ([facility] Contact Info) Description 04/04/2025 11:00 AM EDT Office Visit [facility] OB [address] [place] [phone] Meera Jimenez PA [address] [place] [address] [place] [address] documented as of this encounter Visit Diagnoses Not on filedocumented in this encounter Care Teams Commercial Singer Relationship Specialty Start Date End Date Kole Servin MD PCP - General Family Medicine 04/06/23 documented as of this encounter
--- OUTSIDE RECORDS SUMMARY | 2025-02-28 08:50 | XMS_ITS | Encounter Summary ---
Author Organization [facility] Address [address] [facility] [place] [address] Care Team Providers Care Travel Administrator Name Role Phone Jacinto Kaur MD Primary Care Provider [phone] Encounter Details Date Type Department Care Team (Late Contact Info) Description 07/12/2023 Clinisync Result Encounter [facility] External Department Unsolicited Adriana Murguia DO [address] [facility] [place] [address] Social History Tobacco Use Types Packs/Day Years [...] EDT Office Visit [facility] BCP OB [address] [facility] [place] [address] Meera Jimenez PA [address] [facility] [address] [place], [place] [phone] documented as of this encounter Procedures Procedure Name Priority Date/Time Associated Diagnosis Comments ECG 12-LEAD 07/12/2023 10:41 AM EST documented in this encounter Results * ECG 12-LEAD (07/12/2023 10:41 AM EST) Anatomical Region Laterality Modality Other 07/12/2023 10:4 1 AM EST Narrative 07/12/2023 10:41 AM EST The [place] [id number] Electrocardiograph Report Signed Patient: JOI AGOSTO MR#: [id number] : 1940 Acct:[id number] Age/Sex: 83 / F ADM Date: 07/12/23 Loc: PST Attending Dr: Adriana Murguia D.O. Ordering Physician: Adriana Murguia D.O. Date of Service: 07/12/23 Procedure(s): ECG 12 lead Accession Number(s): [id number] cc: [facility] Test Date: 2023-07-12 Pat Name: JOI AGOSTO Department: Room: - Gender: Female Reverse Logistics Analyst: : 1940 Requested By: ADRIANA MURGUIA Order Number: [id number] Reading MD: JACINTO KAUR Measurements Intervals [place] Rate: 70 P: AR: QRS: -3 QRSD: 94 T: 28 QT: 427 QTc: 461 Interpretive Statements ATRIAL FIBRILLATION ABNORMAL RHYTHM ECG No previous ECG available for comparison Electronically Signed On 07-15-2023 6:22:44 EST by JACINTO KAUR Dictated By: Jacinto Kaur M.D. Signed By: 07/15/23622 DD/ 1041 TD/TT: [place]: Procedure Note Radiology, Radiologist, MD - 07/15/2023 The [place] [id number] Electrocardiograph Report Signed Patient: JOI AGOSTO PMR#: [id number] : 1940cct:[id number] Age/Sex: 83 / FADM Date: 07/12/23 Loc: PST Attending Dr: Adriana Murguia D.O. Ordering Physician: Adriana Murguia D.O. Date of Service: 07/12/23 Procedure(s): ECG 12 lead Accession Number(s): [id number] cc: [facility] Test Date: 2023-07-12 Pat Name: JOI AGOSTO Department: Room: - Gender: Female Reverse Logistics Analyst: : 1940 Requested By: ADRIANA MURGUIA Order Number: [id number] Reading MD: JACINTO KAUR Measurements Intervals [place] Rate: 70 P: AR: QRS: -3 QRSD: 94 T: 28 QT: 427 QTc: 461 Interpretive Statements ATRIAL FIBRILLATION ABNORMAL RHYTHM ECG No previous ECG available for comparison Electronically Signed On 07-15-2023 6:22:44 EST by JACINTO KAUR Dictated By: Jacinto Kaur M.D. Signed By:07/15/23622 DD/ 104 TD/TT: [place]: us Adriana Murguia DO [facility] Final Result documented in this encounter Visit Diagnoses Not on filedocumented in this encounter Care Teams Travel Administrator Relationship Specialty Start Date End Date Jacinto Kaur MD PCP - General Family Medicine 04/06/23 documented as of this encounter
--- OUTSIDE RECORDS SUMMARY | 2025-02-28 08:50 | XMS_ITS | Clinical Summary ---
Author Organization [facility] Address [address] [place] [address] Care Team Providers Care Sap Manager Name Role Phone Kole Servin MD Primary Care Provider [phone] Allergies Active Allergy Reactions Criticality Noted Date Comments Alprazolam Unknown 03/29/2024 Sulfa (Sulfonamide Antibiotics) 05/08 Medications apixaban (Eliquis) 5 mg tablet Take 1 tablet by mouth in the morning and at bedtime. Active carvedilol (Coreg) 12.5 mg tablet Take 1 tablet by mouth in the morning and at bedtime. 1 Active furosemide (Lasix) 20 mg tablet Take [...] every other day by oral route. 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 Paroxysmal atrial fibrillation 01/06/2019 Encounters Date Type Department Care Team Description 02/15/2025 10:40 AM EDT Office Visit [facility] [address] [place] [address] Halima Lorenzo CNP Palpitations (Primary Dx); PAF (paroxysmal atrial fibrillation) (CMS/HCC); Shortness of breath 02/15/2025 Orders Only [facility] [address] [place] [address] Ashley Tran MA Shortness of breath (Primary Dx) from Last 3 Months Immunizations Immunization Administration Dates Next Due Influenza, Unspecified 06/29/2016 Influenza, trivalent, adjuvanted 07/11/2020 Moderna 12 YR UP Vaccine BiValent Booster 2020,11/14/2020,10/18/2020 Novel [id number], preservative-free 09/14 Pneumococcal Conjugate PCV 13 07/26/2017 [...] Description 04/10/2025 11:30 AM EDT Office Visit [facility] [address] [place] [address] Zeb Chicas MD [address] [place] [address] Health Maintenance Due Date Last Done Comments Medicare Annual Wellness (AWV) 1940 Depression Screening 1954 Adult Tetanus 1964 Zoster Vaccines (1 of 2) 1992 Fall Risk Screening 2007 COVID-19 Vaccine ( season) 2024 08/28/2021, 11/14/2020, 10/18/2020 Influenza Vaccine (Season Ended) 2025 07/21/2022, 07/11/2020, 06/29/2016, Additional history exists Pneumococcal Vaccine: 50+ Years Completed 07/26/2017, 06/29/2016 HIB Vaccines Aged [...] on patient's age to complete this topic Procedures Procedure Name Priority Date/Time Associated Diagnosis Comments ECG 12 LEAD UNIT PERFORMED Routine 02/15/2025 11:41 AM EDT Palpitations PAF (paroxysmal atrial fibrillation) (CMS/HCC) from Last 3 Months Results * ECG 12 lead unit performed (02/15/2025 11:41 AM EDT) Halima Lorenzo INFORMATICS CONSULTANT ECG ORDERABLES Final Result from Last 3 Months Insurance MEDICARE [facility] Care Teams Sap Manager Relationship Specialty Start Date End Date Kole Servin MD [address] [place] [phone] PCP - General 05/28/22
[2025-02-28 09:04] LABS: Hemoglobin 13.8 g/dL (12.0-16.0)
--- OUTSIDE RECORDS SUMMARY | 2025-02-28 09:09 | XMS_ITS | CCD ---
Author Organization [facility] Care Team Providers Care Visitor Services Technician Name Role Phone PETER LEE Referring Unavailable JACINTO SERVIN Primary Care Unavailable CHAPITO SHIPLEY Attending Unavailable CHAPITO SHIPLEY Admitting Unavailable OR Procedure Practitioner Unavailab SILVIANO Rendon Surgeon Unavailable [...] Unavailable HOY ., DR CASEY Attending Unavailable FONTANA, DR KELSI Aguirre Consulting Unavailable ZIEBER, DR DUDLEY Lee Consulting Unavailable HOY ., DR CASEY Admitting Unavailable HOY ., DR CASEY Primary Care Unavailable HOY ., DR CASEY Attending Unavailable HOY ., DR CASEY Admitting Unavailable HOY ., DR CASEY Primary Care Unavailable HOY ., DR CASEY Consulting Unavailable HOY ., DR CASEY Attending Unavailable Manuel Servinlas Primary Care Physician [phone] MEERA AGUAYO Attending Unavailable MEERA AGUAYO Attending Unavailable MEERA AGUAYO Attending Unavailable MD Rashi Swan Attending Provider Rashi Swan Attending Unavailable Rashi Swan Admitting Unavailable Harmony Bettencourt Attending Unavailable Harmony Bettencourt Attending Unavailable Rashi SWAN Attending Unavailable Rashi SWAN Attending Unavailable Rashi SWAN Attending Unavailable Harmony Bettencourt Admitting Unavailable Mouchli, Mohamad A. Attending Unavailable Harmony Bettencourt Referring Unavailable Harmony Bettencourt Attending Unavailable Jacinto Servin MD Primary Care Provider [phone] KHANG HOPSON Attending Unavailable Allergies Allergy Classification Reported Allergen(s) Allergy Type Date of Onset Reaction(s) Facility (9 sources) Sulfonamides (Antibiotic); Translations: [sulfa drugs] Drug allergy Unknown (qualifier value) [facility] (2 sources) Sulfonamides (Antibiotic); Translations: [SULFA (SULFONAMIDE ANTIBIOTICS)] Drug allergy (disorder) 0 [facility] Repository (2 sources) ALPRAZolam; Translations: [Xanax] Drug Allergy [facility] Repository (2 sources) Alprazolam; Translations: [ALPRAZOLAM] Allergy to substance 4 Unknown [facility] (1 source) Sulfonamides (Antibiotic) Drug Allergy 0 Other, Unknown, Rash [facility] Medications Current Medications Medication Drug Class(es) Dates [...] 2020 12:53pm apixaban 5 mg oral tablet (9 sources) Factor Xa Inhibitor Start: 02-02-2020 take [...] 2020 1:51pm carvedilol 12.5 mg oral tablet (10 sources) alpha-Adrenergic Elvin, beta-Adrenergic Elvin Start: 01-22-2023 [...] take 1 tablet by mouth once daily furosemide (Lasix) 5 MG split tablet (1 source) Start: 07-19-2022 take 4 tablets by mouth once furosemide (Lasix) 5 MG split tablet Take 20 mg by mouth 1 (one) time. 07/19/2022 Active hydrOXYzine pamoate 25 mg oral capsule (1 source) Antihistamine Start: 02-06-2020 Hydroxyzine Pamoate Active 25 MG PO every 6 to 8 hours February 06, 2020 12:00am 1 to 2 tablets as needed for spasm levothyroxine sodium 0.05 mg oral tablet (9 sources) l-Thyroxine Start: 01-22-2023 take 1 tablet by mouth once daily Start: 02-02-2020 take 1 tablet by brittani th before mealtime Synthroid 50 MCG tablet Take 50 mcg by mouth in the morning. Take before meals. 01/22/2023 Active lisinopril 20 mg oral tablet (9 sources) Angiotensin Converting Enzyme Inhibitor Start: 07-02-2022 take 1 tablet by mouth once daily Start: 02-02-2020 take 5 mg by mouth once daily Lisinopril Active 5 MG PO Daily February 02, 2020 12:00am meclizine hydrochloride 25 mg oral tablet (8 sources) Antiemetic Start: 02-02-2023 take 1 tablet by mouth twice daily meclizine 25 mg Tab 25 mg = 1 tab(s), Oral, BID, Refills(s) 0 Start Date: 02/02/23 Status: Ordered oxyCODONE hydrochloride 5 mg oral tablet (1 source) Opioid Agonist Start: 02-06-2020 take 1 tablet by mouth every four to six hours as needed Oxycodone Active 5 MG PO EVERY 4-6 HOURS 04 04February 06, 2020 5 mg 1to2 tablets orally as needed spironolactone 25 mg oral tablet (1 source) Aldosterone Antagonist Start: 08-05-2023 End: 07-25-2025 spironolactone (Aldactone) 25 MG tablet Take 12.5 mg by mouth in the morning. 08/05/2023 07/25/2025 Active Completed/Discontinued Medications Medication Drug Class(es) Dates Sig [...] oral capsule (2 sources) Dihydropyridine Calcium Channel Levin, Angiotensin Converting Enzyme Inhibitor Start: 12-15-2017 End: [...] (1 source) Start: 12-15-2017 End: 02-02-2020 take 84356 ug by mouth once daily Biotin Discontinued 13049 MCG PO Daily December 15, 2017 12:00February 02, 2020 1:51pm C,E,Zinc,Copper 80-[id number] (Ocuvite Adult 50 Plus) 250-5-1 mg Capsule (1 source) Start: 12-14-2017 End: 02-02-2020 C,E,Zinc,Copper 66-[id number] (Ocuvite Adult 50 Plus) 250-5-1 mg Capsule Discontinued 250 MG PO Daily with breakfast December 14, 2017 12:00am February 02, 2020 1:51pm calcium carbonate 1500 mg oral tablet (1 source) Start: 12-15-2017 End: 02-02-2020 take 1 tablet by mouth once daily Calcium Carbonate (Calcium 600) 600 mg calcium (1,500 mg) Tablet Discontinued 600 MG PO Daily December 15, 2017 12:00February 02, 2020 1:51pm cholecalciferol 0.01 mg oral tablet (2 sources) Vitamin D Start: 12-15-2017 End: 02-02-2020 take 2 tablets by mouth once daily Cholecalciferol (Vitamin D3) (Vitamin D3) 400 unit Tablet Discontinued 800 UNIT PO Daily December 15, 2017 12:00February 02, 2020 1:51pm take 1 capsule by mouth in the m orning cholecalciferol (Vitamin D-3) 25 MCG (1000 UT) capsule Take 1,000 Units by mouth in the morning. Active potassium chloride 20 meq extended release oral tablet (8 sources) Start: 02-02-2020 take 1 tablet by mouth once daily potassium chloride 20 mEq ER Tab 20 mEq = 1 tab(s), Oral, Daily, Refills(s) 0, Prophylaxis Start Date: 01/22/23 Status: Ordered Paulina Oil-[place]-3 Fatty Acids (Paulina Oil-1000) 1,000-200 mg Capsule (1 source) Start: 12-15-2017 End: 02-02-2020 Paulina Oil-[place]-3 Fatty Acids (Paulina Oil-1000) 1,000-200 mg Capsule Discontinued 2000 MG PO Daily December 15, 2017 12:00February 02, 2020 1:51pm Problems Active Problems Problem Classification Problem Date Documented Da te Episodic/Chronic Cancer of colon (5 sources) History of malignant neoplasm of colon; Translations: [Personal history of other malignant neoplasm of large intestine] Onset: 4 Episodic Cardiac dysrhythmias (12 sources) Unspecified atrial fibrillation; Translations: [Atrial fibrillation] Onset: 2 01-22-2023 Chronic Cardiac dysrhythmias (3 sources) ECG: sinus bradycardia; Translations: [Bradycardia, unspecified] Onset: 5 08-18-2023 Episodic Congestive heart failure; nonhypertensive (8 sources) Unspecified diastolic (congestive) heart failure; Translations: [Congestive heart failure] Onset: 2 01-22-2023 Chronic Disorders of lipid metabolism (1 source) Hyperlipidemia, unspecified; Translations: [HYPERLIPIDEMIA UNSPECIFIED] Onset: 2 Chronic Essential hypertension (8 sources) Hypertensive disorder; Translations: [Essential (primary) hypertension] 01-22-2023 Chronic Fracture of neck of femur [...] PRIMARY OVARIAN FAILURE] Onset: 2 Chronic Osteoporosis (9 sources) Age-related osteoporosis without current pathological fracture; Translations: [Osteoporosis] Onset: 2 01-22-2023 Chronic Other aftercare (1 source) Drug therapy finding; Translations: [FDC (current) use of anticoagulants] 08-18-2023 Episodic Other and ill-defined heart disease (1 source) Cardiomegaly; Translations: [CARDIOMEGALY] Onset: 2 Chronic Other and ill-defined heart disease (7 sources) Left atrial enlargement 01-22-2023 Chronic Other and ill-defined heart disease (7 sources) Left ventricular hypertrophy 01-22-2023 Chronic Other and ill-defined heart disease (5 [...] of head, initial encounter] 08-18-2023 Episodic Other lower respiratory disease (2 sources) Shortness of breath; Translations: [Shortness of breath] Onset: 5 Episodic Other non-traumatic joint disorders (1 source) [...] Value Interpretation Reference Range Facility Office Visiton 02-15-2025 Follow-up visit [id number] Nereida Agosto 1940 F Date Provider Department Center 02/15/2025 KHANG SALEH CARD Anneliese [facility] Family History Problem Relation Age of Onset No Known Problems Mother No Known Problems Father Family Status - Relation Status Age at Mother Father Level of Service:11937 OR OFFICE/OUTPATIENT ESTABLISHED MOD MDM 30 MIN Reason for Visit and Comments: Shortness of Breath [197839] Atrial Fibrillation [80] Normal [facility] CALCIUMon 11-15-2024 Calcium [Mass/Vol] 9.4 mg/dL 8.5 - 10. 1 mg/dL [facility] No Panel Informationon 11-15 [facility] CREATININEon 11-15-2024 Creatinine [Mass/Vol] 1.32 mg/dL High 0.55 - 1.02 mg/dL [facility] GFR/1.73 sq M.predicted CKD-EPI (S/P/Bld) [Vol rate/Area] 47 Low >=60 mL/min/1.73m 2 [facility] Interpretation and review of laboratory results Abnormal [facility] EGFR-NON AF [place]UG[place]E 39 Low >=60 mL/min/1.73m 2 [facility] Gastroenterology Office/Clin ic Noteon 09-28-2024 Gastroenterology Office/Clinic [...] influenza, unspec (more content not included)... Normal [facility] Comment on above: Result Comment: Elec tronically Signed By: Rut AHMADI, Harmony Jay\.br\Date and Time Signed: 09/28/24 09:23 EST Reminderson 09-26-2024 Reminders Reminders From: Uyen Carnes To: [facility] - Reminders/Recalls; Sent: 09/26/2024 12:44:45 EST Show [...] POLYPECTOMY: HYPERPLASTIC COLONIC GLANDULAR MUCOSAL POLYP Normal [facility] Surgical Pathology Reporton 09-15-2024 Surgical Pathology Report [address] [place] [address]- Surgical Pathology Report Collected Date/Time: 09/13/2024 11:37 EST Pathologist: Christopher Delarosa MD Date/Time: 09/13/2024 13:54 EST Mouchli Harmony AHMADI MD, Mohamad A. 07 Surgical Pathology Report - 09/15/2024 16:38 EST [...] is entirely submitted in one cassette. (DC) DC:[facility] Microscopic Description Microscopic examination performed unless gross only specified. Normal [facility] Comment on above: Performed By: #### [id number] #### [facility] [address] [place] [address] Main OR Intraoperative Recor don 09-14-2024 Main OR Intraoperative Record Main OR Intraoperative Record IntraOp Document Type FT Summary Primary Physician: Harmony Bettencourt MD Finalized Date/Time: 09/14/24 14:42:48 Pt. Name: NEREIDA AGOSTO/Sex: 1940 Female Med Rec #: [id number] Physician: Harmony Bettencourt MD Financial #: [id number] Pt. Type: O Room/Bed: / Admit/Disch: 09/13/24 [...] Llanos Role Performed Anesthesiologist Surgeon - Primary [employer] - Primary Manager Database Time In 09/13/24 11:15:00 09/13/24 11:15:00 09/13/24 [...] corrective devic (more content not included)... Normal [facility] Discharge Instructionson Discharge Instructions Discharge Instructions NEREIDA AGOTSO :1940 Visit Date:09/13/2024 Inpatient Discharge Instructions Your [...] AM EST With: Harmony Bettencourt MD Where: [facility] [address] [address]- New Follow Up Appointments after Discharge Follow Up with Harmony Bettencourt MD, [facility] When: Comments: -Office to call for pathology results. Call for any problems. [phone] Where: [address], [address] [place] [address]- [phone] Business (1) Medications What How Much When [...] on th (more content not included)... Normal [facility] Comment on above: Result Comment: Elec [...] Plan Diagnosis: Recurrent cecal polyp colonoscopy Normal [facility] Main OR PACU I Recordon Main OR PACU I Record Main OR PACU I Rec ord PACU Phase I Document Type FT Summary Primary Physician: Harmony Bettencourt MD Finalized Date/Time: 09/13/24 13:11:22 Pt. Name: NEREIDA AGOSTO Caryn Bolivar/Sex: 1940 Female Med Rec #: [id number] Physician: Harmony Bettencourt MD Financial #: [id number] Pt. Type: O Room/Bed: / Admit/Disch: 09/13/24 [...] By: Renetta Pickens RN 09/13/24 13:11 Normal [facility] Main OR Preoperative Recordo n 09-13-2024 Main OR Preoperative Record Main OR Preoperative Record Holding Area Document Type FT Summary Primary Physician: Harmony Bettencourt MD Finalized Date/Time: 09/13/24 09:36:21 Pt. Name: XIANGDenisNEREIDA D.O.B./Sex: 1940 Female Med Rec #: [id number] Physician: Harmony Bettencourt MD Financial #: [id number] Pt. Type: O Room/Bed: / Admit/Disch: 09/13/24 [...] No Patient states Yes Comment - Adult [facility] postop adult Supervision supervision available Case Cancelled in No Holding Area see comments below for reason Last Modified By: Shawn Barrera RN 09/13/24 09:36:19 General Comments: pt finished bowel prep at 0730, per patient nothing to eat or drink since MSRN Finalized By: Shawn Barrera RN Document Signatures Signed By: Shawn Barrera RN 09/13/24 09:36 Normal [facility] Operative Reporton Operative Report Operative Report Patient: NEREIDA AGOSTO Age: 84 years Sex: Female : 1940 Associated Diagnoses: None Author: Harmony Bettencourt MD Pre-Procedure Procedure Date 09/13/2024 11:43:00 . Procedure Type: Colonoscopy with removal of tumor(s), polyp(s), or other lesion(s) by cold snare technique, endoscopic mucosal resection. Procedure provider Performed by Harmony Bettencourt MD. Current history and physical Documented on chart. Colonoscopy ([id number]) on 04/26/2024 at 84 Years. Colonoscopy ([id number]) on 02/24/2023 at 82 Years. Tubal ligation (326455072). Closed fracture of hip (676070022). Cardiac fluoroscopy (397398866).. Past Medical History No active or resolved past medical history items have been selected or recorded.. Family History Asthma Mother Renal cell carcinoma Brother . Procedure History Colonoscopy ([id number]) on 04/26/2024 at 84 Years. Colonoscopy ([id number]) on 02/24/2023 at 82 Years. Tubal ligation (623712678). Closed fracture of hip (145261060). Cardiac fluoroscopy (471524269).. Colorectal neoplasm risk assessment High risk Previous [...] Images Procedure images: Rec1_hd_video__50_[id number].jpg Rec1_hd_video__48_46_121.jpg Rec1_hd_video__48_26_033.jpg Rec1_hd_video__47_44_799.jpg Rec1_hd_video__46_33_322.jpg Rec1_hd_video__44_25_246.jpg Rec1_hd_video__45_13_936.jpg Rec1_hd_video__42_37_592.jpg Rec1_hd_video__40_20_010.jpg Rec1_hd_video__39_47_195.jpg Rec1_hd_video__39_35_664.jpg Rec1_hd_video__38_25_772.jpg Rec1_hd_video_2024_ _T11_36_12_[id number].jpg . Post-Procedure Complications: none. Estimated blood loss: Minimal. Specimens: sent to pathology. De (more content not included)... Normal [facility] Comment on above: Result Comment: Elec tronically Signed By: Rut AHMADI, Harmony Jay\.br\Date and Time Signed: 09/13/24 11:47 EST Other Comment: Erin martinez Attachment - attachment storage system not supported [id number] Can be viewed in source systemMissing Attachment - attachment storage system not supported [id number] Can be viewed in source systemMissing Attachment - attachment storage system not supported [id number] Can be viewed in source systemMissing Attachment - attachment storage system not supported [id number] Can be viewed in source systemMissing Attachment - attachment storage system not supported [id number] Can be viewed in source [facility] Attachment - attachment storage system not supported [id number] Can be viewed in source systemMissing Attachment - attachment storage system not supported [id number] Can be viewed in source systemMissing Attachment - attachment storage system not supported [id number] Can be viewed in source systemMissing Attachment - attachment storage system not supported [id number] Can be viewed in source systemMissing Attachment - attachment storage system not supported [id number] Can be viewed in source systemMissing Attachment - attachment storage system not supported [id number] Can be viewed in source systemMissing Attachment - attachment storage system not supported [id number] Can be viewed in source systemMissing Attachment - attachment storage system not supported [id number] Can be viewed in source system Ambulatory [...] EST With: Rut AHMADI, Harmony Jay Where: [facility] [address] [place], [place] [id number]- Medications What How Much When Instructions Unchanged [...] choosing us for your care. Normal [facility] Gastroenterology Office/Clin ic Noteon 06-08-2024 Gastroenterology Office/Clinic [...] influenza, unspecified formulation 06/29/2016 Recorded Normal [facility] Comment on above: Result Comment: Elec tronically Signed By: Rut AHMADI, Harmony Mckeon.br\Date and Time Signed: 06/08/24 10:25 EDT General [...] E&M of Est. Patient Low 20-29 Min [address] [facility] Internal Ambulatory Referral Follow-up No qualifying data [...] SARS-CoV-2 (COVID-19) mRNA-1273 vaccine 10/18/2020 Recorded Normal [facility] Comment on above: Result Comment: Elec tronically Signed By: ALVARO AHMADI, Rashi Lee\.br\Date and Time Signed: 05/10/24 13:55 EDT Pathology Request for Lab Co rpon 04-26-2024 Pathology Request for Lab Sherley Normal [facility] Comment on above: Order Comment: PATHO LOGY GI SPECIMEN Result Comment: See report. Scanned copy available in EMR. PERFORMED BY: [place] [address] PATHOLOGIST COMPOUND FINISHER JAVIER GOODE M.D. Performed By: #### P ATH TO [facility] #### [address] Ambulatory Visit Summaryon 0 03-15-2024 Ambulatory Visit Summary Ambulatory Visit Summary DAIN AGOSTOPITA Rubin :1940 Visit Date:03/15/2024 Ambulatory Visit Instructions [...] choosing us for your care. [facility] General Surgery Office/Clini c Noteon 03-15-2024 General [...] Family Hist (more content not included)... Normal [facility] Comment on above: Result Comment: Elec tronically Signed By: ALVARO AHMADI, Rashi Weaver\Date and Time Signed: 03/15/24 14:08 EDT OCC BLD IMMUNO SCREENon 01-04 OCCULT BLOOD Positive Abnormal NEGATIVE [facility] Comment on above: Performed By: #### O BSCRN #### [facility] [address] [place] [address] Dr. Dinah Rodriges CBC AUTO DIFFon 01-18-2023 BASO # 0.0 103/ul Normal 0.0-0.1 [facility] Comment on above: Performed By: #### C BC #### [facility] [address] [place] [address] Dr. Dinah Rodriges Basophils/100 WBC (Bld) 0.6 % Normal 0.2-2.0 [facility] Comment on above: Performed By: #### C BC #### [facility] [address] [place] [address] Dr. Dinah Rodriges EO # 0.1 103/ul Normal 0.0-0.7 [facility] Comment on above: Performed By: #### C BC #### [facility] [address] [place] [address] Dr. Dinah Rodriges Eosinophils/100 WBC (Bld) 1.8 % Normal 0.9-7.0 [facility] Comment on above: Performed By: #### C BC #### [facility] [address] [place] [address] Dr. Dinah Rodriges Erythrocyte distribution width (RBC) [Ratio] 12.7 % Normal 11.0-15.0 [facility] Comment on above: Performed By: #### C BC #### [facility] [address] [place] [address] Dr. Dinah Rodriges Hematocrit (Bld) [Volume fraction] 39.7 % Normal 36.0-48.0 [facility] Comment on above: Performed By: #### C BC #### [facility] [address] [place] [address] Dr. Dinah Rodriges Hemoglobin (Bld) [Mass/Vol] 12.6 g/dL Normal 12.0-16.0 [facility] Comment on above: Performed By: #### C BC #### [facility] [address] [place] [address] Dr. Dinah Rodriges IG # 0.01 10e3/ul Normal 0.00-0.03 [facility] Comment on above: Performed By: #### C BC #### [facility] [address] [place] [address] Dr. Dinah Rodriges IG % 0.2 % Normal 0.0-0.5 [facility] Comment on above: Performed By: #### C BC #### [facility] [address] [place] [address] Dr. Dinah Rodriges LYMPH # 1.5 103/ul Normal 1.2-3.8 [facility] Comment on above: Performed By: #### C BC #### [facility] [address] [place] [address] Dr. Dinah Rodriges Lymphocytes/100 WBC (Bld) 28.7 % Normal 20.5-60.0 [facility] Comment on above: Performed By: #### C BC #### [facility] [address] [place] [address] Dr. Dinah Rodriges MANUAL DIFF REQ NO Normal [facility] Comment on above: Performed By: #### C BC #### [facility] [address] [place] [address] Dr. Dinah Rodriges MCH (RBC) [Entitic mass] 30.7 pg Normal 26.7-34.0 [facility] Comment on above: Performed By: #### C BC #### [facility] [address] [address] [address] Dinah Rodriges MCHC (RBC) [Mass/Vol] 31.7 g/dL Normal 29.9-35.2 [facility] Comment on above: Performed By: #### C BC #### [facility] [address] [place] [address] Dr. Dinah Rodriges MCV (RBC) [Entitic vol] 96.8 fL Normal 81.0-99.0 [facility] Comment on above: Performed By: #### C BC #### [facility] [address] [place] [address] Dr. Dinah Rodriges MONO # 0.4 103/ul Normal 0.3-0.8 [facility] Comment on above: Performed By: #### C BC #### [facility] [address] [place] [address] Dr. Dinah Rodriges Monocytes/100 WBC (Bld) 7.3 % Normal 1.7-12.0 [facility] Comment on above: Performed By: #### C BC #### [facility] [address] [place] [address] Dr. Dinah Rodriges NEUT # 3.1 103/ul Normal 1.4-6.5 [facility] Comment on above: Performed By: #### C BC #### [facility] [address] [place] [address] Dr. Dinah Rodriges Neutrophils/100 WBC (Bld) 61.4 % Normal 43.0-75.0 [facility] Comment on above: Performed By: #### C BC #### [facility] [address] [place] [address] Dr. Dinah Rodriges Platelet mean volume (Bld) [Entitic vol] 9.7 fL Normal 9.5-13.5 [facility] Comment on above: Performed By: #### C BC #### [facility] [address] [place] [address] Dr. Dinah Rodriges PLT 163 103/ul Normal 150-450 [facility] Comment on above: Performed By: #### C BC #### [facility] [address] [place] [address] Dr. Dinah Rodriges RBC 4.10 106/ul Critically low 4.20-5.40 [facility] Comment on above: Performed By: #### C BC #### [facility] [address] [address] [address] Dinah Rodriges WBC 5.1 103/ul Normal 4.0-11.0 [facility] Comment on above: Performed By: #### C BC #### [facility] [address] [address] [address] Dinah Rodriges FREE T3on 01-18-2023 FREE T3 2.11 pg/mlL Critically low 2.18-3.98 [facility] Comment on above: Performed By: #### C MP, TSH, T4, LIPID, FT3 #### [facility] [address] [address] [address] Dinah Rodriges GLYCOHEMOGLOBIN A1Con 2022 ADA RECOMMENDATION SEE BELOW Normal [facility] Comment on above: Result Comment: ADA RECOMMENDED LIMIT 4.0 - 6.0 ADA THERAPEUTIC TARGET < 7.0 ACTION SUGGESTED > 7.0 Performed By: #### A 1C ####[facility] [address] [address]Dr. Dinah Rodriges Glucose [Mass/Vol] 105 mg/dL Normal [facility] Comment on above: Performed By: #### A 1C ####[facility] [address] [address]Dr. Dinah Rodriges HbA1c (Bld) [Mass fraction] 5.3 % Normal 4.5-6.2 [facility] Comment on above: Performed By: #### A 1C ####[facility] [facility] [id number] [address]Dr. Dinah Rodriges LIPID PROFILEon 01-18-2023 CHOL-HDL RATIO NORM SEE BELOW Normal [facility] Comment on above: Result Comment: 3.3 - 4.4 LOW RISK 4.4 - 7.1 AVERAGE RISK 7.1 - 11.0 MODERATE RISK >11.0 HIGH RISK Performed By: #### C MP, TSH, T4, LIPID, FT3 #### [facility] [address] [address] [address] Dinah Rodriges Cholesterol [Mass/Vol] 168 mg/dL Normal <=200 [facility] Comment on above: Performed By: #### C MP, TSH, T4, LIPID, FT3 #### [facility] [address] [address] [address] Dinah Rodriges Cholesterol in HDL [Mass/Vol] 61 mg/dL Critically high 40-60 [facility] Comment on above: Performed By: #### C MP, TSH, T4, LIPID, FT3 #### [facility] [address] [address] [address] Dinah Rodriges Cholesterol in LDL [Mass/Vol] 94.0 mg/dL Normal [facility] Comment on above: Performed By: #### C MP, TSH, T4, LIPID, FT3 #### [facility] [address] [place] [address] Dr. Dinah Rodriges Cholesterol.total/Cho lesterol in HDL [Mass ratio] 2.8 {ratio} Normal [facility] Comment on above: Performed By: #### C MP, TSH, T4, LIPID, FT3 #### [facility] [address] [address] [address] Dinah Rodriges HDL NORMAL > or = 60 mg/dl - LO W CARDIOVASCULAR RISK <40 mg/dl - HIGH CARDIOVASCULAR RISK Normal [facility] Comment on above: Performed By: #### C MP, TSH, T4, LIPID, FT3 #### [facility] [address] [address] [address] Dinah Rodriges LDL CALC NORMAL SEE BELOW Normal [facility] Comment on above: Result Comment: <100 mg/dl OPTIMAL 100 - 129 mg/dl NEAR OR ABOVE OPTIMAL 130 - 159 mg/dl BORDERLINE HIGH 160 - 189 mg/dl HIGH >190 mg/dl VERY HIGH Performed By: #### C MP, TSH, T4, LIPID, FT3 #### [facility] [address] [address] [address] Dinah Rodriges Triglyceride [Mass/Vol] 65 mg/dL Normal <=150 [facility] Comment on above: Performed By: #### C MP, TSH, T4, LIPID, FT3 #### [facility] [address] [place] [address] Dr. Dinah Rodriges VLDL CALC 13.0 mg/dL Normal [facility] Comment on above: Performed By: #### C MP, TSH, T4, LIPID, FT3 #### [facility] [address] [place] [address] Dr. Dinah Rodriges PROF 14(COMP METB)on 023 Albumin [Mass/Vol] 3.4 g/dL Normal 3.4-5.0 [facility] Comment on above: Performed By: #### C MP, TSH, T4, LIPID, FT3 #### [facility] [address] [place] [address] Dr. Dinah Rodriges Albumin/Globulin [Mass ratio] 1.0 {ratio} Normal [facility] Comment on above: Performed By: #### C MP, TSH, T4, LIPID, FT3 #### [facility] [address] [place] [address] Dr. Dinah Rodriges ALP [Catalytic activity/Vol] 59 U/L Normal 46-116 [facility] Comment on above: Performed By: #### C MP, TSH, T4, LIPID, FT3 #### [facility] [address] [place] [address] Dr. Dinah Rodriges ALT [Catalytic activity/Vol] 13 U/L Critically low 14-59 [facility] Comment on above: Performed By: #### C MP, TSH, T4, LIPID, FT3 #### [facility] [address] [place] [address] Dr. Dinah Rodriges Anion gap [Moles/Vol] 10.7 mmol/L Normal [facility] Comment on above: Performed By: #### C MP, TSH, T4, LIPID, FT3 #### [facility] [address] [place] [address] Dr. Dinah Rodriges AST [Catalytic activity/Vol] 14 U/L Critically low 15-37 [facility] Comment on above: Performed By: #### C MP, TSH, T4, LIPID, FT3 #### [facility] [address] [place] [address] Dr. Dinah Rodriges Bilirubin [Mass/Vol] 0.3 mg/dL Normal 0.2-1.0 [facility] Comment on above: Performed By: #### C MP, TSH, T4, LIPID, FT3 #### [facility] [address] [place] [address] Dr. Dinah Rodriges Calcium [Mass/Vol] 9.4 mg/dL Normal 8.5-10.1 [facility] Comment on above: Performed By: #### C MP, TSH, T4, LIPID, FT3 #### [facility] [address] [place] [address] Dr. Dinah Rodriges Chloride [Moles/Vol] 106 mmol/L Normal 98-107 [facility] Comment on above: Performed By: #### C MP, TSH, T4, LIPID, FT3 #### [facility] [address] [place] [address] Dr. Dinah Rodriges CO2 [Moles/Vol] 31.9 mmol/L Normal 21.0-32.0 [facility] Comment on above: Performed By: #### C MP, TSH, T4, LIPID, FT3 #### [facility] [address] [place] [address] Dr. Dinah Rodriges Creatinine [Mass/Vol] 0.95 mg/dL Normal 0.55-1.02 [facility] Comment on above: Performed By: #### C MP, TSH, T4, LIPID, FT3 #### [facility] [address] [place] [address] Dr. Dinah Rodriges EGFR-AF PORTUGUESE >60 Normal >=60 [facility] Comment on above: Performed By: #### C MP, TSH, T4, LIPID, FT3 #### [facility] [address] [place] [address] Dr. Dinah Rodriges EGFR-NON AF PORTUGUESE 57 mL/min/1.73m2 Critically low >=60 [facility] Comment on above: Performed By: #### C MP, TSH, T4, LIPID, FT3 #### [facility] [address] [place], [place] [id number] Dr. Dinah Rodriges Globulin (S) [Mass/Vol] 3.4 g/dL Normal [facility] Comment on above: Performed By: #### C MP, TSH, T4, LIPID, FT3 #### [facility] [address] [place] [address] Dr. Dinah Rodriges Glucose [Mass/Vol] 88 mg/dL Normal 74-106 [facility] Comment on above: Performed By: #### C MP, TSH, T4, LIPID, FT3 #### [facility] [address] [place] [address] Dr. Dinah Rodriges Potassium [Moles/Vol] 4.6 mmol/L Normal 3.5-5.1 [facility] Comment on above: Performed By: #### C MP, TSH, T4, LIPID, FT3 #### [facility] [address] [place] [address] Dr. Dinah Rodriges Protein [Mass/Vol] 6.8 g/dL Normal 6.4-8.2 [facility] Comment on above: Performed By: #### C MP, TSH, T4, LIPID, FT3 #### [facility] [address] [place] [address] Dr. Dinah Rodriges Sodium [Moles/Vol] 144 mmol/L Normal 136-145 [facility] Comment on above: Performed By: #### C MP, TSH, T4, LIPID, FT3 #### [facility] [address] [place] [address] Dr. Dinah Rodriges Urea nitrogen [Mass/Vol] 18.0 mg/dL Normal 7.0-18.0 [facility] Comment on above: Performed By: #### C MP, TSH, T4, LIPID, FT3 #### [facility] [address] [place] [address] Dr. Dinah Rodriges Urea nitrogen/Creatinine [Mass ratio] 18.9 mg/mg Normal [facility] Comment on above: Performed By: #### C MP, TSH, T4, LIPID, FT3 #### [facility] [address] [place] [address] Dr. Dinah Rodriges T4on 01-18-2023 T4 [Mass/Vol] 9.30 ug/dL Normal 4.80-13.90 [facility] Comment on above: Performed By: #### C MP, TSH, T4, LIPID, FT3 #### [facility] [address] [address] [address] Dinah Rodriges TSHon 01-18-2023 TSH 0.872 uIU/mL Normal 0.358-3.740 [facility] Comment on above: Performed By: #### C MP, TSH, T4, LIPID, FT3 #### [facility] [address] [address] [address] Dinah Rodriges BNPon 01-20-2022 Natriuretic peptide B (Bld) [Mass/Vol] 464.0 pg/mL Normal <=1,800.0 [facility] Comment on above: Performed By: #### T SH, BNP, T7, LIPID, CMP ####[facility] [address] [address]Dr. Dinah Rodriges CBC AUTO DIFFon 01-20-2022 BASO # 0.0 103/ul Normal 0.0-0.1 [facility] Comment on above: Performed By: #### C BC #### [facility] [address] [place] [address] Dr. Dinah Rodriges Basophils/100 WBC (Bld) 0.4 % Normal 0.2-2.0 [facility] Comment on above: Performed By: #### C BC #### [facility] [address] [place] [address] Dr. Dinah Rodriges EO # 0.1 103/ul Normal 0.0-0.7 [facility] Comment on above: Performed By: #### C BC #### [facility] [address] [place] [address] Dr. Dinah Rodriges Eosinophils/100 WBC (Bld) 1.9 % Normal 0.9-7.0 [facility] Comment on above: Performed By: #### C BC #### [facility] [address] [place] [address] Dr. Dinah Rodriges Erythrocyte distribution width (RBC) [Ratio] 12.7 % Normal 11.0-15.0 [facility] Comment on above: Performed By: #### C BC #### [facility] [address] [place] [address] Dr. Dinah Rodriges Hematocrit (Bld) [Volume fraction] 35.0 % Critically low 36.0-48.0 [facility] Comment on above: Performed By: #### C BC #### [facility] [address] [place] [address] Dr. Dinah Rodriges Hemoglobin (Bld) [Mass/Vol] 11.5 g/dL Critically low 12.0-16.0 [facility] Comment on above: Performed By: #### C BC #### [facility] [address] [place] [address] Dr. Dinah Rodriges IG # 0.01 10e3/ul Normal 0.00-0.03 [facility] Comment on above: Performed By: #### C BC #### [facility] [address] [place] [address] Dr. Dinah Rodriges IG % 0.2 % Normal 0.0-0.5 [facility] Comment on above: Performed By: #### C BC #### [facility] [address] [place] [address] Dr. Dinah Rodriges LYMPH # 1.4 103/ul Normal 1.2-3.8 [facility] Comment on above: Performed By: #### C BC #### [facility] [address] [place] [address] Dr. Dinah Rodriges Lymphocytes/100 WBC (Bld) 26.9 % Normal 20.5-60.0 [facility] Comment on above: Performed By: #### C BC #### [facility] [address] [place] [address] Dr. Dinah Rodriges MANUAL DIFF REQ NO Normal [facility] Comment on above: Performed By: #### C BC #### [facility] [address] [place] [address] Dr. Dinah Rodriges MCH (RBC) [Entitic mass] 33.0 pg Normal 26.7-34.0 [facility] Comment on above: Performed By: #### C BC #### [facility] [address] [place] [address] Dr. Dinah Rodriges MCHC (RBC) [Mass/Vol] 32.9 g/dL Normal 29.9-35.2 [facility] Comment on above: Performed By: #### C BC #### [facility] [address] [place] [address] Dr. Dinah Rodriges MCV (RBC) [Entitic vol] 100.3 fL Critically high 81.0-99.0 [facility] Comment on above: Performed By: #### C BC #### [facility] [address] [place] [address] Dr. Dinah Rodriges MONO # 0.4 103/ul Normal 0.3-0.8 [facility] Comment on above: Performed By: #### C BC #### [facility] [address] [place] [address] Dr. Dinah Rodriges Monocytes/100 WBC (Bld) 7.6 % Normal 1.7-12.0 [facility] Comment on above: Performed By: #### C BC #### [facility] [address] [place] [address] Dr. Dinah Rodriges NEUT # 3.3 103/ul Normal 1.4-6.5 [facility] Comment on above: Performed By: #### C BC #### [facility] [address] [place] [address] Dr. Dinah Rodriges Neutrophils/100 WBC (Bld) 63.0 % Normal 43.0-75.0 [facility] Comment on above: Performed By: #### C BC #### [facility] [address] [place] [address] Dr. Dinah Rodriges Platelet mean volume (Bld) [Entitic vol] 10.0 fL Normal 9.5-13.5 [facility] Comment on above: Performed By: #### C BC #### [facility] [address] [place] [address] Dr. Dinah Rodriges PLT 165 103/ul Normal 150-450 [facility] Comment on above: Performed By: #### C BC #### [facility] [address] [address] [address] Dinah Rodriges RBC 3.49 106/ul Critically low 4.20-5.40 [facility] Comment on above: Performed By: #### C BC #### [facility] [address] [address] [address] Dinah Rodriges WBC 5.3 103/ul Normal 4.0-11.0 [facility] Comment on above: Performed By: #### C BC #### [facility] [address] [address] [address] Dinah Rodriges FREE THYROXINE INDEX T7on FTI 3.37 Normal 1.30-4.50 [facility] Comment on above: Performed By: #### T SH, BNP, T7, LIPID, CMP ####[facility] [address] [address]DrSimran Rodriges T3U 34.0 % Normal 30.0-39.0 [facility] Comment on above: Performed By: #### T SH, BNP, T7, LIPID, CMP ####[facility] [address] [id number]. Dinah Rodriges T4 [Mass/Vol] 9.90 ug/dL Normal 4.80-13.90 [facility] Comment on above: Performed By: #### T SH, BNP, T7, LIPID, CMP ####[facility] [address] [id number] Rodriges GLYCOHEMOGLOBIN A1Con 2021 ADA RECOMMENDATION SEE BELOW Normal [facility] Comment on above: Result Comment: ADA RECOMMENDED LIMIT 4.0 - 6.0 ADA THERAPEUTIC TARGET < 7.0 ACTION SUGGESTED > 7.0 Performed By: #### A 1C ####[facility] [address] [address]Dr. Dinah Rodriges Glucose [Mass/Vol] 103 mg/dL Normal [facility] Comment on above: Performed By: #### A 1C ####[facility] [address] [id number]. Dinah Rodriges HbA1c (Bld) [Mass fraction] 5.2 % Normal 4.5-6.2 [facility] Comment on above: Performed By: #### A 1C ####[facility] [address] [id number]. Dinah Rodriges IRONon 01-20-2022 Iron [Mass/Vol] 79.0 ug/dL Normal 50.0-170.0 [facility] Comment on above: Performed By: #### I KINZA ####[facility] [address] [id number]. Dinah Rodriges LIPID PROFILEon 01-20-2022 CHOL-HDL RATIO NORM SEE BELOW Normal [facility] Comment on above: Result Comment: 3.3 - 4.4 LOW RISK 4.4 - 7.1 AVERAGE RISK 7.1 - 11.0 MODERATE RISK >11.0 HIGH RISK Performed By: #### T SH, BNP, T7, LIPID, CMP ####[facility] [address] [id number]. Dinah Rodriges Cholesterol [Mass/Vol] 153 mg/dL Normal <=200 [facility] Comment on above: Performed By: #### T SH, BNP, T7, LIPID, CMP ####[facility] [address] [id number]. Dinah Rodriges Cholesterol in HDL [Mass/Vol] 54 mg/dL Normal 40-60 [facility] Comment on above: Performed By: #### T SH, BNP, T7, LIPID, CMP ####[facility] [address] [id number]. Dinah Rodriges Cholesterol in LDL [Mass/Vol] 78.8 mg/dL Normal [facility] Comment on above: Performed By: #### T SH, BNP, T7, LIPID, CMP ####[facility] [address] [id number]. Dinah Rodriges Cholesterol.total/Cho lesterol in HDL [Mass ratio] 2.8 {ratio} Normal [facility] Comment on above: Performed By: #### T SH, BNP, T7, LIPID, CMP ####[facility] [address] [id number]. Dinah Rodriges HDL NORMAL > or = 60 mg/dl - LO W CARDIOVASCULAR RISK <40 mg/dl - HIGH CARDIOVASCULAR RISK Normal [facility] Comment on above: Performed By: #### T SH, BNP, T7, LIPID, CMP ####[facility] [address] [address]Dr. Dinah Rodriges LDL CALC NORMAL SEE BELOW Normal [facility] Comment on above: Result Comment: <100 mg/dl OPTIMAL 100 - 129 mg/dl NEAR OR ABOVE OPTIMAL 130 - 159 mg/dl BORDERLINE HIGH 160 - 189 mg/dl HIGH >190 mg/dl VERY HIGH Performed By: #### T SH, BNP, T7, LIPID, CMP ####[facility] [address] [id number]. Dinah Rodriges Triglyceride [Mass/Vol] 101 mg/dL Normal <=150 [facility] Comment on above: Performed By: #### T SH, BNP, T7, LIPID, CMP ####[facility] [address] [id number]. Dinah Rodriges VLDL CALC 20.2 mg/dL Normal [facility] Comment on above: Performed By: #### T SH, BNP, T7, LIPID, CMP ####[facility] [address] [id number]. Dinah Rodriges MG MAMM SCREEN 3D TENZIN CADon 01-20-2022 MG MAMM SCREEN 3D TENZIN CAD Patient: NEREIDA AGOSTO Exam Date: 01/20/2022 : 1940 Gender:F Ordering : DR JACINTO SERVIN . Admission #: [id number] Family : Order #: [id number] CLICK HERE TO VIEW EXAM RADIOLOGY REPORT [...] Treatments None Family Cancers None LOCATION: [facility] BREAST COMPOSITION: Scattered areas fibroglandular density. FINDINGS: [...] MD on 01/20/2022 at 11:33 Normal [facility] PROF 14(COMP METB)on 022 Albumin [Mass/Vol] 3.3 g/dL Critically low 3.4-5.0 [facility] Comment on above: Performed By: #### T SH, BNP, T7, LIPID, CMP ####[facility] [address] [address]Dr. Dinah Rodriges Albumin/Globulin [Mass ratio] 1.0 {ratio} Normal [facility] Comment on above: Performed By: #### T SH, BNP, T7, LIPID, CMP ####[facility] [address] [address]Dr. Dinah Rodriges ALP [Catalytic activity/Vol] 69 U/L Normal 46-116 [facility] Comment on above: Performed By: #### T SH, BNP, T7, LIPID, CMP ####[facility] [address] [address]Dr. Dinah Rodriges ALT [Catalytic activity/Vol] 6 U/L Critically low 14-59 [facility] Comment on above: Performed By: #### T SH, BNP, T7, LIPID, CMP ####[facility] [address] [address]Dr. Dinah Rodriges Anion gap [Moles/Vol] 8.7 mmol/L Normal [facility] Comment on above: Performed By: #### T SH, BNP, T7, LIPID, CMP ####[facility] [address] [address]Dr. Dinah Rodriges AST [Catalytic activity/Vol] 12 U/L Critically low 15-37 [facility] Comment on above: Performed By: #### T SH, BNP, T7, LIPID, CMP ####[facility] [address] [address]Dr. Dinah Rodriges Bilirubin [Mass/Vol] 0.3 mg/dL Normal 0.2-1.0 [facility] Comment on above: Performed By: #### T SH, BNP, T7, LIPID, CMP ####[facility] [address] [address]Dr. Dinah Rodriges Calcium [Mass/Vol] 9.3 mg/dL Normal 8.5-10.1 [facility] Comment on above: Performed By: #### T SH, BNP, T7, LIPID, CMP ####[facility] [address] [place], [place] [address]Dr. Dinah Rodriges Chloride [Moles/Vol] 104 mmol/L Normal 98-107 [facility] Comment on above: Performed By: #### T SH, BNP, T7, LIPID, CMP ####[facility] [address] [place], [place] [address]Dr. Dinah Rodriges CO2 [Moles/Vol] 33.2 mmol/L Critically high 21.0-32.0 [facility] Comment on above: Performed By: #### T SH, BNP, T7, LIPID, CMP ####[facility] [address] [place], [place] [address]Dr. Dinah Rodriges Creatinine [Mass/Vol] 1.11 mg/dL Critically high 0.55-1.02 [facility] Comment on above: Performed By: #### T SH, BNP, T7, LIPID, CMP ####[facility] [address] [place], [place] [address]Dr. Dinah Rodriges EGFR-AF PORTUGUESE 57 mL/min/1.73m2 Critically low >=60 [facility] Comment on above: Performed By: #### T SH, BNP, T7, LIPID, CMP ####[facility] [address] [place], [place] [address]Dr. Dinah Rodriges EGFR-NON AF PORTUGUESE 47 mL/min/1.73m2 Critically low >=60 [facility] Comment on above: Performed By: #### T SH, BNP, T7, LIPID, CMP ####[facility] [address] [address]Dr. Dinah Rodriges Globulin (S) [Mass/Vol] 3.4 g/dL Normal [facility] Comment on above: Performed By: #### T SH, BNP, T7, LIPID, CMP ####[facility] [address] [address]Dr. Dinah Rodriges Glucose [Mass/Vol] 84 mg/dL Normal 74-106 [facility] Comment on above: Performed By: #### T SH, BNP, T7, LIPID, CMP ####[facility] [address] [address]Dr. Dinah Rodriges Potassium [Moles/Vol] 4.9 mmol/L Normal 3.5-5.1 [facility] Comment on above: Performed By: #### T SH, BNP, T7, LIPID, CMP ####[facility] [address] [address]Dr. Dinah Rodriges Protein [Mass/Vol] 6.7 g/dL Normal 6.4-8.2 [facility] Comment on above: Performed By: #### T SH, BNP, T7, LIPID, CMP ####[facility] [address] [address]Dr. Dinah Rodriges Sodium [Moles/Vol] 141 mmol/L Normal 136-145 [facility] Comment on above: Performed By: #### T SH, BNP, T7, LIPID, CMP ####[facility] [address] [address]Dr. Dinah Rodriges Urea nitrogen [Mass/Vol] 18.0 mg/dL Normal 7.0-18.0 [facility] Comment on above: Performed By: #### T SH, BNP, T7, LIPID, CMP ####[facility] [address] [address]Dr. Yilan Rodriges Urea nitrogen/Creatinine [Mass ratio] 16.2 mg/mg Normal [facility] Comment on above: Performed By: #### T SH, BNP, T7, LIPID, CMP ####[facility] [address] [place], [place] [address]Km. Dinah Rodriges TSHon 01-20-2022 TSH 1.061 uIU/mL Normal 0.358-3.740 [facility] Comment on above: Performed By: #### T SH, BNP, T7, LIPID, CMP ####[facility] [address] [place] [id number]. Dinah Rodriges TSH RANGE SEE BELOW Normal [facility] Comment on above: Result Comment: <0.3 4 UIU/ml HYPERTHYROID 0.34-5.60 UIU/ml EUTHYROID >5.60 UIU/ml HYPOTHYROID Performed By: #### T SH, BNP, T7, LIPID, CMP ####[facility] [address] [place] [id number]. Dinah Rodriges XR DEXA BONE DENSITYon 01-20 [...] by: DUDLEY RYDER Date: 2022-01-20 11:30 Normal [facility] Cardiovascular Lab Reporton 12-23-2018 Cardiovascular Lab Report [facility] Patient Name: [facility] Nereida Rubin MR #: [id number] Department of Physician: Martha Seymour M.D. Division of Service Date: 12/23/2018 Cardiology Birthdate: 1940 Adult Cardiovascular Room #: [address] [place] [address] Cardiovascular Laboratory Report PROCEDURE: Transesophageal echocardiogram and cardioversion. INDICATION: Atrial fibrillation. FELLOW: Neto Doty MD PROCEDURE IN DETAIL: An informed consent was obtained from the patient after explaining the indication, risks and benefits, and alternatives. The patient understood and agreed and signed the consent form. The patient was brought to the electrical laboratory technician and transesophageal echocardiogram was performed [...] will follow up with me in the [facility] in 2-4 weeks Electronically Signed by: Goldie Waldrop M.D. 01/05/2019 08:36 A Goldie Waldrop M.D. I was present for the entire procedure. Date Dict: 12/23/2018/03:28 P/Neto Doty MD Date Trans: 12/23/2018 04:19 P/beth [id number] cc: Jacinto Servin M.D. [address] [facility] [address] [place] [address] [facility] Cardiovascular Lab Reporton 12-16-2018 Cardi[facility] [facility]re[facility] Rbuin MR #: [id number] Department of Physician: Martha Ken M.D. Division of Service Date: 12/15/2018 Cardiology Birthdate: 1940 Adult Cardiovascular Room #: [id number] [facility] [address] [place] [address] Cardiovascular Laboratory Report CLINICAL PRESENTATION: The patient is a 78-year-old female with past medical history significant for hypertension. She was admitted to [facility] with worsening shortness of breath. She was diagnosed with acute congestive heart failure and atrial fibrillation with a rapid ventricular rate. She was evaluated by my colleague, Dr. Lee, [place] [facility]. EKG showed ST elevations in the anterolateral leads and she was transferred urgently to the [facility] due to possible acute myocardial infarction. [...] ultrasound guidance and micropuncture access technique, a 6-Honduran sheath placed in the right common femoral [...] P/Silviano Cano M.D. Date Trans: 12/16/2018 06:03 A/beth [id number] cc: Jacinto Servin M.D. [place] [address] [facility] [address] Peter Lee M.D. [address] [place] [id number] [facility] BASIC METABOLIC PANELon 12-05 Calcium [Mass/Vol] 9.3 mg/dL Normal 8.6-10.3 [facility] Comment on above: Order Comment: No: D o not add to previous draw Performed By: #### 4 6413, 25059, 54635, 22028, 72580 #### [facility] [address] [place] [address], [place] Chloride [Moles/Vol] 102 mmol/L Normal 98-[address] [facility] Comment on above: Order Comment: No: D o not add to previous draw Performed By: #### 4 6413, 63447, 33284, 66291, 85436 #### [facility] [address] [place] [address], [place] CO2 [Moles/Vol] 27 mmol/L Normal 21-31 [facility] Comment on above: Order Comment: No: D o not add to previous draw Performed By: #### 4 6413, 75525, 28218, 73027, 98123 #### [facility] [address] [place] [address], [place] Creatinine [Mass/Vol] 0.91 mg/dL Normal 0.60-1.[address] [facility] Comment on above: Order Comment: No: D o not add to previous draw Performed By: #### 4 6413, 59709, 67182, 25973, 83156 #### [facility] [address] [place] [address], [place] GFR/1.73 sq M predicted among blacks MDRD (S/P/Bld) [Vol rate/Area] mL/min/{1.73_m2} Normal >[address] [facility] Comment on above: Order Comment: No: D o not add to previous draw Result Comment: Calc ulation may not be valid for patients over 70 years Performed By: #### 4 6413, 98939, 48518, 00134, 44440 #### [facility] [address] [place] [address], [place] GFR/1.73 sq M predicted among non-blacks MDRD (S/P/Bld) [Vol rate/Area] mL/min/{1.73_m2} Normal >[address] [facility] Comment on above: Order Comment: No: D o not add to previous draw Result Comment: Calc ulation may not be valid for patients over 70 years Performed By: #### 4 6413, 68600, 17279, 83624, 54422 #### [facility] [address] [place] [address], [place] Glucose [Mass/Vol] 130 mg/dL High 70-100 [facility] Comment on above: Order Comment: No: D o not add to previous draw Performed By: #### 4 6413, 97825, 48688, 60912, 51420 #### [facility] [address] [place] [address], [place] Potassium [Moles/Vol] 3.5 mmol/L Normal 3.5-5.[address] [facility] Comment on above: Order Comment: No: D o not add to previous draw Performed By: #### 4 6413, 41182, 67101, 74653, 30580 #### [facility] [address] [place] [address], [place] Sodium [Moles/Vol] 140 mmol/L Normal 136-145 [facility] Comment on above: Order Comment: No: D o not add to previous draw Performed By: #### 4 6413, 07705, 18333, 63775, 58899 #### [facility] [address] [place] [address], [facility] Urea nitrogen [Mass/Vol] 19 mg/dL Normal 7-[address] [facility] Comment on above: Order Comment: No: D o not add to previous draw Performed By: #### 4 6413, 39325, 17803, 30100, 55616 #### [facility] [address] [place] [id number], [facility] BNP (B-TYPE NATRIURETIC PEPT CORI)on 12-15-2018 Natriuretic peptide B (Bld) [Mass/Vol] 369 pg/mL High 0-100 [facility] Comment on above: Order Comment: No: D o not add to previous draw Result Comment: Give n the appropriate clinical setting a BNP result of >100 pg/mL indicates congestive heart failure. Performed By: #### 8 5123, 70659 #### [facility] [address] [place] [address], [facility] CBC COMPLETE BLOOD COUNTon 0 12-15-2018 Erythrocyte distribution width (RBC) [Ratio] 12.9 % Normal 11.5-15.[address] [facility] Comment on above: Order Comment: No: D o not add to previous draw Performed By: #### 5 0608 #### [facility] [address] [place] [address], [facility] Hematocrit (Bld) [Volume fraction] 39.0 % Normal 36.0-45.[address] [facility] Comment on above: Order Comment: No: D o not add to previous draw Performed By: #### 5 0608 #### [facility] [address] [place] [address], [facility] Hemoglobin (Bld) [Mass/Vol] 12.6 g/dL Normal 12.0-15.[address] [facility] Comment on above: Order Comment: No: D o not add to previous draw Performed By: #### 5 0608 #### [facility] [address] [place] [address], [facility] MCH (RBC) [Entitic mass] 31.6 pg Normal 27.0-33.[address] [facility] Comment on above: Order Comment: No: D o not add to previous draw Performed By: #### 5 0608 #### [facility] [address] MCHC (RBC) [Mass/Vol] 32.3 g/dL Normal 32.0-35.[address] [facility] Comment on above: Order Comment: No: D o not add to previous draw Performed By: #### 5 0608 #### [facility] [address] MCV (RBC) [Entitic vol] 97.7 fL Normal 82.0-98.[address] [facility] Comment on above: Order Comment: No: D o not add to previous draw Performed By: #### 5 0608 #### [facility] [address] Nucleated RBC/100 WBC (Bld) [Ratio] 0 % Normal 0-[address] [facility] Comment on above: Order Comment: No: D o not add to previous draw Performed By: #### 5 0608 #### [facility] [address] [place] [address], [facility] PLAT CNT 252 10*3/uL Normal 150-400 [facility] Comment on above: Order Comment: No: D o not add to previous draw Performed By: #### 5 0608 #### [facility] [address] [place] [address], [facility] RBC (Bld) [#/Vol] 3.99 10*6/uL Normal 3.80-5.00 [facility] Comment on above: Order Comment: No: D o not add to previous draw Performed By: #### 5 0608 #### [facility] [address] [place] [address], [facility] WBC (Bld) [#/Vol] 8.04 10*3/uL Normal 4.00-10.60 [facility] Comment on above: Order Comment: No: D o not add to previous draw Performed By: #### 5 0608 #### [facility] [address] [place] [address], [facility] HEMOGLOBIN A1Con 12-15-2018 HbA1c (Bld) [Mass fraction] 108 mg/dL Normal 70-[address] [facility] Comment on above: Order Comment: No: D o not add to previous draw Performed By: #### 8 5123, 53466 #### [facility] [address] [place] [address], [facility] HbA1c (Bld) [Mass fraction] 5.4 % Normal 4.0-6.[address] [facility] Comment on above: Order Comment: No: D o not add to previous draw Performed By: #### 8 5123, 43238 #### [facility] [address] [place] [address], [facility] LIPID PROFILEon 12-15-2018 Cholesterol [Mass/Vol] 138 mg/dL Normal 120-[address] [facility] Comment on above: Order Comment: No: D o not add to previous draw Result Comment: CHOL ESTEROL REFERENCE RANGE: 20 YEARS AND OLDER CARDIOVASCULAR RISK Less than 200 mg/dl Low Risk 200 to 239 mg/dl Borderline Risk 240 mg/dl and greater High Risk Performed By: #### 4 6413, 56391, 83570, 06411, 31776 #### [facility] [address] [place] [id number], [facility] Cholesterol in HDL [Mass/Vol] 36 mg/dL Normal 23-[address] [facility] Comment on above: Order Comment: No: D o not add to previous draw Result Comment: Slig ht variation in normal range could be due to gender and/or age. HDL CHOLESTEROL REFERENCE RANGE: 20 years and older Cardiovascular Risk > or =60 mg/dL Desirable 40 TO 59 mg/dL Low Risk <40 mg/dL High Risk Performed By: #### 4 6413, 42987, 48909, 53420, 25515 #### [facility] [address] [place] [address], [place] Cholesterol in LDL [Mass/Vol] 81 mg/dL Normal 0-[address] [facility] Comment on above: Order Comment: No: D o not add to previous draw Result Comment: LDL IS A CALCULATION LDL IS ONLY VALID IF THE TRIG IS LESS THAN 400. Performed By: #### 4 6413, 88530, 61262, 58648, 22198 #### [facility] [address] [place] [address], [facility] Cholesterol.total/Cho lesterol in HDL [Mass ratio] 3.8 {ratio} Normal .0-4.[address] [facility] Comment on above: Order Comment: No: D o not add to previous draw Performed By: #### 4 6413, 45712, 66335, 47602, 95668 #### [facility] [address] [place] [address], [facility] NON-HDL CHOLESTEROL 102 mg/dL Normal [facility] Comment on above: Order Comment: No: D o not add to previous draw Performed By: #### 4 6413, 33256, 92422, 99107, 34778 #### [facility] [address] [place] [address], [place] Triglyceride [Mass/Vol] 106 mg/dL Normal 40-[address] [facility] Comment on above: Order Comment: No: D o not add to previous draw Result Comment: TRIG LYCERIDE REFERENCE RANGE: 20 YEARS AND OLDER CARDIOVASCULAR RISK LESS THAN 150 mg/dl LOW RISK 150 TO 199 mg/dl BORDERLINE RISK 200 mg/dl AND GREATER HIGH RISK Performed By: #### 4 6413, 53830, 71387, 47826, 78406 #### [facility] [address] [facility] [address], [facility] VLDL CHOL 21 mg/dL Normal 0-[address] [facility] Comment on above: Order Comment: No: D o not add to previous draw Performed By: #### 4 6413, 64602, 42235, 19142, 32089 #### [facility] [address] [facility] [address], [facility] MAGNESIUM BLOODon 12-15-2018 Magnesium [Mass/Vol] 1.9 mg/dL Normal 1.9-2.[address] [facility] Comment on above: Order Comment: No: D o not add to previous draw Performed By: #### 4 6413, 67164, 68982, 07113, 94788 #### [facility] [address] [facility] [address], [facility] PHOSPHORUS BLOODon 9 Phosphate [Mass/Vol] 4.5 mg/dL Normal 2.5-5.[address] [facility] Comment on above: Order Comment: combi henry request Performed By: #### 4 6413, 44258, 03675, 49745, 06572 #### [facility] [address] [place], [place] [address] [place] [address] PORTABLE CHEST 1 VIEWon 12-05 PORTABLE CHEST 1 VIEW [facility] Department of Radiology [address] [place] [id number] Patient Name: NEREIDA AGOSTO : 1940 Sex: F Age: Race: White Pt. Location: [id number] Patient Status: I Ordered Date: 12/15/2018 2:10:00 [...] failure Electronically signed by:Bharti Bazan. Transcribed by: [email or web address], User Resident: Electronically Signed by: BHARTI BAZAN @ 12/15/2018 03:[address] [facility] Comment on above: Order Comment: R/O C HF TSH3on 12-15-2018 TSH 3RD GENERATION 0.86 uIU/mL Normal 0.34-5.60 [facility] Comment on above: Performed By: #### 4 6413, 27707, 65759, 84042, 92144 #### [facility] [address] Vital Signs Date Time Vital Sign Value Performing Clinician Facility 09-28-2024 08:58-0500 Blood Pressure Location Harmony Bettencourt [facility] 09-28-2024 08:58-0500 Diastolic blood pressure 87 mm[Hg] Harmony Bettencourt [facility] 09-28-2024 08:58-0500 Heart rate 67 /min Mohamad Mouchli [facility] 09-28-2024 08:58-0500 Systolic blood pressure 128 mm[Hg] Mohamad Mouchli [facility] 09-13-2024 12:40-0500 Diastolic blood pressure 80 mm[Hg] Mohamad Mouchli [facility] 09-13-2024 12:40-0500 Heart rate 80 /min Mohamad Mouchli [facility] 09-13-2024 12:40-0500 Respiratory rate 13 /min Mohamad Mouchli [facility] 09-13-2024 12:40-0500 SaO2% (BldA) [Mass fraction] 95 % Mohamad Mouchli [facility] Comment on above: Result Comment: patient had cold fingers , waveform was suboptimal, no SOB or other signs of respiratory difficulty 09-13-2024 12:40-0500 Systolic blood pressure 116 mm[Hg] Mohamad Mouchli [facility] 09-13-2024 12:30-0500 Diastolic blood pressure 69 mm[Hg] Mohamad Mouchli [facility] 09-13-2024 12:30-0500 Heart rate 80 /min Mohamad Mouchli [facility] 09-13-2024 12:30-0500 Respiratory rate 22 /min Mohamad Mouchli [facility] 09-13-2024 12:30-0500 SaO2% (BldA) [Mass fraction] 96 % Mohamad Mouchli [facility] 09-13-2024 12:30-0500 Systolic blood pressure 120 mm[Hg] Mohamad Mouchli [facility] 09-13-2024 12:15-0500 Diastolic blood pressure 48 mm[Hg] Mohamad Mouchli [facility] 09-13-2024 12:15-0500 Heart rate 81 /min Mohamad Mouchli [facility] 09-13-2024 12:15-0500 Respiratory rate 22 /min Mohamad Mouchli [facility] 09-13-2024 12:15-0500 SaO2% (BldA) [Mass fraction] 97 % Mohamad Mouchli [facility] 09-13-2024 12:15-0500 Systolic blood pressure 101 mm[Hg] Mohamad Mouchli [facility] 09-13-2024 11:43-0500 Body temperature 97.16 [degF] Mohamad Mouchli [facility] 09-13-2024 11:40-0500 Respiratory rate 18 /min Mohamad Mouchli [facility] 09-13-2024 11:35-0500 Respiratory rate 18 /min Mohamad Mouchli [facility] 09-13-2024 11:30-0500 Respiratory rate 18 /min Mohamad Mouchli [facility] 09-13-2024 09:33-0500 Blood Pressure Location Mohamad Mouchli [facility] 09-13-2024 09:33-0500 Body temperature 96.8 [degF] Mohamad Mouchli [facility] 06-08-2024 09:46-0400 Blood Pressure Location Mohamad Mouchli [facility] 06-08-2024 09:46-0400 Diastolic blood pressure 73 mm[Hg] Mohamad Mouchli [facility] 06-08-2024 09:46-0400 Heart rate 64 /min Mohamad Mouchli [facility] 06-08-2024 09:46-0400 Respiratory rate 16 /min Mohamad Mouchli [facility] 06-08-2024 09:46-0400 Systolic blood pressure 111 mm[Hg] Mohamad Mouchli [facility] 03-15-2024 13:44-0400 Blood Pressure Location Rashi NILL [facility] 03-15-2024 13:44-0400 Diastolic blood pressure 80 mm[Hg] Rashi NILL [facility] 03-15-2024 13:44-0400 Heart rate 76 /min Rashi NILL [facility] 03-15-2024 13:44-0400 Respiratory rate 16 /min Rashi NILL [facility] 03-15-2024 13:44-0400 Systolic blood pressure 118 mm[Hg] Rashi NILL [facility] 02-02-2023 14:45-0400 Blood Pressure Location Rashi NILL [facility] 02-02-2023 14:45-0400 Diastolic blood pressure 76 mm[Hg] Rashi NILL [facility] 02-02-2023 14:45-0400 Heart rate 74 /min Rashi SWAN [facility] 02-02-2023 14:45-0400 Respiratory rate 16 /min Rashi SWAN [facility] 02-02-2023 14:45-0400 Systolic blood pressure 126 mm[Hg] Rashi SWAN [facility] Encounters Encounter Date Encounter Type Care Provider Facility Start: 10-01-2025 ambulatory Harmony Bettencourt Faci lity:[facility] Start: 02-15-2025 End: 02-15-2025 ambulatory [facility] Start: 11-15-2024 End: 11-15-2024 Clinisync Result Encounter Meera JONES Work Phone: [facility] External [facility] Unsolicited Start: 11-15-2024 End: 11-15-2024 Clinisync Result Encounter Meera JONES Work Phone: [facility] External [facility] Unsolicited Start: 09-28-2024 End: 09-28-2024 ambulatory Harmony Bettencourt Facility:[facility] Start: 09-28-2024 End: 09-28-2024 Patient encounter procedure Harmony Bettencourt [facility] Start: 09-13-2024 End: 09-13-2024 ambulatory Harmony Bettencourt Facility:[facility] Start: 09-13-2024 End: 09-13-2024 Patient encounter procedure Harmony Bettencourt [facility] Start: 06-08-2024 ambulatory Harmony Bettencourt Facilit y:[facility] Start: 06-08-2024 End: 06-08-2024 ambulatory Harmony Bettencourt Facility:[facility] Start: 06-08-2024 End: 06-08-2024 Patient encounter procedure Harmony BarriosSimran Bettencourt [facility] Start: 05-10-2024 End: 05-10-2024 ambulatory Rashi CAMARAL Facility: [facility] Start: 05-10-2024 End: 05-10-2024 Patient encounter procedure Rashi R NILL [facility] Start: 04-26-2024 End: 04-26-2024 ambulatory Rashi R Nilamirah [facility] Work Phone: Start: 04-26-2024 End: 04-26-2024 Departed Referred MD Rashi Swan Work Phone: [facility] Start: 04-26-2024 End: 04-26-2024 ambulatory Rashi R JAXL Facility:CD:[id number] Start: 04-13-2024 End: 04-13-2024 ambulatory MEERA OLIVIER Not Available Start: 03-29-2024 End: 03-29-2024 ambulatory MEERA OLIVIER Not Available Start: 03-15-2024 End: 03-15-2024 ambulatory Rashi R JAXL Facility: [facility] Start: 03-15-2024 End: 03-15-2024 Patient encounter procedure Rashi R NILL [facility] Start: 08-05-2023 End: 08-05-2023 ambulatory MEERA OLIVIER Not Available Start: 03-05-2023 End: 03-05-2023 Patient encounter procedure Rashi R NILL [facility] Nill/Said [facility] Start: 02-02-2023 End: 02-02-2023 Patient encounter procedure Rashi R NILL [facility] Nill/Said [facility] Start: 01-21-[address] JACINTO SERVIN . Facili ty:[facility] Start: 01-19-2023 End: 01-19-[address] JACINTO SERVIN . Facility: Start: 01-18-2023 End: 01-19-[address] JACINTO SERVIN . Facility: Start: 01-20-2022 End: 01-21-[address] JACINTO SERVIN . Facility: Start: 12-23-2018 End: 12-24-2018 Patient encounter procedure GOLDIE WALDROP Facility:[facility] Start: 12-15-2018 End: 12-16-2018 Evaluation and management of inpatient PETER LEE Facility:[facility] Procedures Date Procedure Procedure Detail Performing Clinician Start: 11-15-2024 [facility] CALCIUM Meera JONES Work Phone: Start: 11-15-2024 [facility] CREATININE Meera Mix Work Phone: Start: 09-13-2024 Colonoscopy Harmony maravilla Start: 04-26-2024 Colonoscopy Rashi NI LL Start: 02-24-2023 Colonoscopy Rashi NI LL Start: 12-15-2018 FLUOROSCOPY OF MULTI PLE CORONARY ARTERIES USING OTH CONTRAST SILVIANO CANO Start: 12-15-2018 MEASURE CARDIAC SAMP L \T\ PRESSURE, BILATERAL, PERC SILVIANO CANO Start: 12-15-2018 MEASUREMENT OF ARTER IAL FLOW, PULMONARY, PERC APPROACH SILVIANO CANO Cardiac fluoroscopy Rashi SWAN Closed fracture of h ip (disorder) Rashi SWAN Ligation of fallopian tube M emelina JAXL Plan of Treatment Date Care Activity Detail Author Start: 04-04-2025 End: 04-04-2025 Patient encounter procedure 04/04/2025 11:00 AM EDT Office Visit [facility] [address] [facility] [id number] Meera Aguayo PA [address] [address] [facility] Start: 05-07-2024 Influenza vaccination Influenza Vacc ine (#1) [facility] Start: 04-26-2024 [facility] Immunizations Immunization Date Immunization Notes Care Provider Fa cility 07-21-2022 influenza virus vaccine, unspecified formulation Rashi ALVARO [facility] 08-28-2021 SARS-CoV-2 (COVID-19 ) mRNA-1273 vaccine Rashi CAMARAL [facility] 11-14-2020 SARS-CoV-2 (COVID-19 ) mRNA-1273 vaccine Rashi CAMARAL [facility] 10-18-2020 SARS-CoV-2 (COVID-19 ) mRNA-1273 vaccine Rashi CAMARAL [facility] 07-11-2020 influenza virus vaccine, unspecified formulation Mohamad Mouchli [facility] 07-26-2017 pneumococcal conjuga te vaccine, [address] [facility] 06-29-2016 influenza, unspecifi ed formulation Mohamad Mouchli [facility] 06-29-2016 pneumococcal polysaccharide vaccine, 23 valent Mohamad Mouchli [facility] NEGATED: Highlighted row has not occurred!09-28-2024 influenza virus vaccine, unspecified formulation Mohamad Mouchli [facility] NEGATED: Highlighted row has not occurred!06-08-2024 influenza virus vaccine, unspecified formulation Mohamad Mouchli [facility] Payers Date Payer Category Payer Self-pay [id number] 2022 Worker's Compensation [id number] 2018 () [id number] 2018 [employer] ( and others) [id number] 2007 Medicare MEDICARE [id number] 1959 [employer] ( and others) [id number] 1959 Medicare [id number] 1940 Unknown [id number] 2.840.1.133243.3.579. 2.647 1940 Unknown [id number] 2.16840.1.398727.3.579. 2.647 1940 Unknown [id number] 2.16840.1.065967.3.579. 2.593 1940 Unknown [id number] 2.160.1.658516.3.579. 2.593 1942 Unknown [id number] 2.16.840.1.688279.3.579. 2.593 1942 Unknown [id number] 2.16.840.1.275466.3.579. 2.593 1942 Unknown [id number] 2.16.840.1.694470.3.579. 2.1259 1942 Unknown [id number] 2.16.840.1.145792.3.579. 2.1259 1942 Unknown [id number] 2.16.840.1.272822.3.579. 2.1259 1942 Unknown [id number] 2.16.840.1.999426.3.579. 2.727 1942 Unknown [id number] 2.16840.1.187684.3.579. 2.727 1942 Unknown [id number] 2.16840.1.808301.3.579. 2.727 1942 Unknown [id number] 2.16.840.1.168141.3.579. 2.727 1942 Unknown [id number] 2.16840.1.442552.3.579. 2.727 1942 Unknown [id number] 2.16840.1.939796.3.579. 2.727 1940 Unknown [id number] 2.16840.1.137876.3.579. 2.727 [employer] ( and others) [id number] Unknown [id number] 2.16840.1.677557.3.579. 2.531 Social History Date Type Detail Facility Start: 02-02-2023 End: 09-28-2024 Tobacco smoking status Ex-smoker (finding) [facility] Tobacco smoking status Never [facility] Sex Assigned At Female [facility] Start: 02-03-2020 Tobacco smoking status NHIS Never smoked tobacco (finding) [facility] Start: 1940 Sex Assigned At Female F [facility] Tobacco smoking status [facility] Tobacco smoking consumption unknown [facility] Start: 1940 Sex assigned at Not on file N [facility] Medical Equipment Procedure Code Equipment Code Equipment Origin al Text Equipment Identifier Dates Orthopaedic bone screw, non-bioabsorbable, non-sterile ()[id number] FDA Start: 02-03-2020 Femur nail, sterile ()[id number] FDA Start: 02-03-2020 Spiral blade ()[id number] FDA Start: 02-03-2020 Unknown Unknown 09/13/24 Non Biological Unknown FDA Start: 09-13-2024 FDA Start: 09-13-2024 Unknown Unknown 09/13/24 Non Biological Unknown FDA Start: 09-13-2024 FDA Start: 09-13-2024 Functional Status Date Assessment Result Facility 09-28-2024 Functional Status N/A [facility] 09-13-2024 Functional Status N/A [facility] 06-08-2024 Functional Status N/A [facility] 03-15-2024 Functional Status N/A [facility] [facility] General Surgery [facility] 02-02-2023 Functional Status N/A General [facility] Clinical Notes 09-13-2024 to 02-15-2025 Note Date & Type Note Facility 02-15-2025 Note Cardiology [facility] Note SUBJECTIVE Chief Complaint Patient presents [...] kg (159 lb) SpO2 96% BMI 32.11 kg/m??? Smoking Status Former BSA 1.73 m??? Medications: Current Outpatient Medications: apixaban (Eliquis) 5 [...] Vascular: No carotid bruit. Comments: No JVD (more content not included)... [facility] 02-15-2025 Note Patient is here toda y for a 1 year follow up. Patient states, she is losing her balance, fatigue, SOB,and BOOTH. Review of Systems Constitutional: Positive for malaise/fatigue. Cardiovascular: Positive for dyspnea on exertion. Respiratory: Positive for shortness of breath. Neurological: Positive for loss of balance. [facility] 09-17-2024 Note Progress Note-Physic ashley Patient: NEREIDA [...] list: All Problems Osteoporosis / SNOMED CT 916873500 / Confirmed Positive fecal occult blood test / SNOMED CT 27190970 / Confirmed Obesity due to excess calories / SNOMED CT 0755372833 / Confirmed LVH (left ventricular hypertrophy) / SNOMED CT 01362500 / Confirmed Left atrial enlargement / SNOMED CT 6884750426 / Confirmed Hypothyroidism / SNOMED CT 95568596 / Confirmed HTN (hypertension) / SNOMED CT 9784207196 / Confirmed Personal history of colonic polyps / SNOMED CT 6651476844 / Confirmed History of colon cancer / SNOMED CT 0638976028 / Confirmed Lower extremity edema / SNOMED CT 130101856 / Confirmed Congestive heart failure / SNOMED CT 28368643 / Confirmed Cardiomyopathy / SNOMED CT 328442425 / Confirmed Cardiomegaly / SNOMED CT 34535463 / Confirmed BMI 32.0-32.9,adult / SNOMED CT 530491929 / Confirmed A-fib / SNOMED CT 84622341 / Confirmed Aortic valve regurgitation / SNOMED CT 158527407 / Confirmed Tubulovillous adenoma of colon / SNOMED CT 9484249306 / Confirmed Histories Procedure history: Colonoscopy (047515523) on 04/26/2024 at 84 Years. Colonoscopy (024499926) on 02/24/2023 at 82 Years. Tubal ligation (525094332). Closed fracture of hip (515636517). Cardiac fluoroscopy (282694625). Social History Social & Psychosocial Habits Alcohol [...] adequate air exchange. Cardiovascular: Regular rhythm. Plan [place] [employer] Anesthesiologists (ASA) physical status classification: Class III. Anesthetic Preoperative Plan: Anesthesia General. [facility] Comment on above: Result Comment: Elec tronically Signed By: Jim Whalen Jr, DO\.br\Date and Time Signed: 09/17/24 21:40 EST 09-17-2024 Note Progress Note-Physic ashley Patient: NEREIDA AGOSTO Age: 84 years Sex: Female : 1940 Associated Diagnoses: None Author: Jim Whalen Jr, DO Postoperative Information Postoperative disposition: Postoperative disposition: To PACU. Optimetrix number: Optimetrix number [id number]. Anesthetic utilized: General. Health Status Allergies: Allergic [...] when meets criteria ( To home ). [facility] Comment on above: Result Comment: Elec tronically Signed By: Jim Whalen Jr, DO\.diego\Date and Time Signed: 09/17/24 21:40 EST 09-13-2024 [...] hard liquor (44 mL). General instructions Take kdhw-mma-kysyvvb and prescription medicines only as told by [...] provider. Document Revised: 12/11/2020 Document Reviewed: 12/11/2020 [employer] Patient Education 2023 [employer] 09/13/2024 12:21:59 Hemorrhoids, Gxkl-ds-Hzns Hemorrhoids Hemorrhoids are swollen veins that may [...] Follow these instructions at home: Medicines Take fsjd-tds-ychwvul and prescription medicines only as told by [...] provider. Document Revised: 05/05/2023 Document Reviewed: 05/05/2023 [employer] Patient Education 2023 [employer] Follow Up Care 06/08/2024 10:51:59 With:Rut AHMADI, [place] Jay [facility] Address: [address] [place] [address], [address] [place] [phone] Business (1) When: Unknown Comments:-Office to call for pathology results. Call for any problems. [phone] [facility] 09-13-2024 Note Patient Education - Text [...] these instructions at home: Medicines ??? Take dero-asx-wkxsedo and prescription medicines only as told by [...] when you poop. (more content not included)... [facility] Evaluation + Plan note No data available for this section General Surgery [facility] Evaluation + Plan note Future Appointments Appointment Date:09/13/2024 11:00:00 AM Scheduled Provider: Location:[facility] Surgical Services Appointment Type:Surgery FT Appointment Date:09/27/2024 12:15:00 PM Scheduled Provider:[place] Bettencourt MD Location:[facility]ive Health Appointment Type:BAD Follow Up [facility] Evaluation + Plan note Future Appointments Appointment Date:09/28/2024 08:30:00 AM Scheduled Provider:[place] Bettencourt MD Location:[facility] Health Appointment Type:BAD Follow Up [facility] Evaluation + Plan note Future Appointments Appointment Date:10/01/2025 12:15:00 PM Scheduled Provider:[place] Bettencourt MD Location:[facility] Appointment Type:BAD Follow Up [facility] Evaluation note No assessment inform ation available [facility] Work Phone: Hospital Discharge instructions No data available for this section General Surgery [facility] Progress note No data available for this section General Surgery [facility] Summary Purpose Family History No Family History [...] Recorded Date/ Time Advance Directives No December 14, 018 2:51pm Hospital Course Note MR#: [id number] [facility] Pt. Name: Nereida Agosto Admitted: 12/15/2018 [...] was sent to the ER. Apparently in [facility], the patient was found to have decompensated heart failure with new onset of atrial fibrillation. She was in rapid ventricular response. The patient was admitt (more content not included)... Additional Source Comments INFORMATION SOURCE (unrecogn ized section and content) DATE CREATED AUTHOR 04/29/2019 [facility] DATE CREATED AUTHOR AUTHOR'S ORGANIZ ATION 01/19/2023 [facility] pital DATE CREATED AUTHOR AUTHOR'S ORGANIZ ATION 04/15/2024 [facility] EPIC DATE CREATED AUTHOR AUTHOR'S ORGANIZ ATION 05/04/2024 [facility] y[facility] DATE CREATED AUTHOR AUTHOR'S ORGANIZ ATION 09/20/2024 [facility] DATE CREATED AUTHOR AUTHOR'S ORGANIZ ATION 09/30/2024 [place] [facility] DATE CREATED AUTHOR AUTHOR'S ORGANIZ ATION 02/22/2025 [facility] Patient Care team informatio n (unrecognized section and content) Team Status: Inactive Member Role Status Dates Rashi Swan MD FACS Attending Provider Active Start: April 26, 2024 End: April 26, 2024 Visitor Services Technician Relationship Specialty Start Date End Date Jacinto Servin MD [address] [place] [address] PCP - General Family Medicine 04/06/23 Goals (unrecognized section and content) Goals may [...] BE BASED ON THE PRIMARY CLINICAL RECORDS. [facility]. provides no warranty or guarantee of the accuracy or completeness of information in this document.
[2025-02-28] MEDS: ALBUTEROL SULFATE 2.5 MG/3 ML VIAL NEB IH (09:42)
--- NOTE | 2025-02-28 09:43 | RT_ITS ---
The [facility] Test Date: 2025-02-28 Pat Name: JOI DUNCAN Department: Room: - Gender: Female Electroneurodiagnostic Technologist: Josh Giron RRT : 1940 Requested By: Halima Lorenzo Order Number: [id number] Reading MD: Lawrence Wong Interpretive Statements Pulmonary function testing was completed according to ATS criteria. Findings were considered accurate and reproducible, with exception of DLCO which did not meet ATS standards. Both pre- and post-bronchodilator values utilized for spirometry. Spirometry (based on pre-bronchodilator values): -FEV1/FVC: Normal @ 75% -FEV1: Moderately reduced @ 65% -FVC: Moderately reduced @ 63% -There is no significant bronchodilator response. Lung volumes by plethysmography (based on pre-bronchodilator values): -RV: Increased @ 132% -TLC: Normal @ 101% -Airway resistance: Increased -Airway conductance: Decreased Diffusion capacity: -DLCO: Severe reduction @ 49% when corrected for Hb 13.8g/dL Prior testing from 08/19/2021: -Decline from FEV1 86%, FVC 84% -Unchanged TLC 100% -Marked decline in DLCO from 75% Impressions: -Non-diagnostic spirometry, normal total lung capacity, and severe diffusion impairment. When compared to prior testing there is a mild worsening in spirometry and marked decline in DLCO, though the patient did not meet ATS standards for repeatability and acceptability. This could suggest development or worsening of cardiopulmonary vascular disorders, concomittant emphysema, or interstitial lung disease. Clinical correlation required. Electronically Signed On 03-01-2025 15:57:04 EDT by Lawrence Wong
== END 2025-02-28 08:47 | disposition home or self-care (01) ==
LOC: CARD 08:47
PROVIDERS: PCP Family Medicine; Visit Provider Nurse Practitioner Family
DX: R06.02 Shortness of breath (principal)
CPT/HCPCS: 36415; 85018; 94060; 94726; 94729

== ENCOUNTER 2025-04-30 09:45 | Outpatient (RCR) | payer MEDICARE, OTHER, SELFPAY | END 2025-06-05 10:07 | disposition home or self-care (01) | LOC: PT 09:45 | PROVIDERS: PCP Family Medicine; Visit Provider Family Medicine | DX: R26.81 Unsteadiness on feet (principal) | CPT/HCPCS: 97110; 97112; 97162; 97530 ==

== ENCOUNTER 2025-06-01 12:36 | Outpatient (OUT) | payer MEDICARE, OTHER, SELFPAY ==
--- OUTSIDE RECORDS SUMMARY | 2025-06-01 12:38 | XMS_ITS | Clinical Summary ---
Author Organization [facility] Address [address] [place] [address] Care Team Providers Care Grill Associate Name Role Phone Kole Servin MD Primary Care Provider [phone] Allergies Active Allergy Reactions Criticality Noted Date Comments Alprazolam Unknown 03/29/2024 Sulfa Antibiotics Other,Unknown,Rash Low 02/02/2020 Medications furosemide (Lasix) 5 MG split tablet Take 20 mg by mouth 1 (one) time. 2 Active carvedilol (Coreg) 6.25 MG tablet Take 1 tablet by mouth in the morning and 1 tablet before bedtime. Active Eliquis 5 MG tablet Take 1 tablet by mouth in the morning and 1 tablet before bedtime. Active Synthroid 50 MCG tablet Take 50 mcg by mouth in the morning. Take before meals. 3 Active lisinopril 20 MG tablet Take 20 mg by mouth in the morning. 2 Active meclizine (Antivert) 25 MG tablet Take 25 mg by mouth in the morning. Active cholecalciferol (Vitamin D-3) 25 MCG (1000 UT) capsule Take 1,000 Units by mouth in the morning. Active spironolactone (Aldactone) 25 MG tablet Take 12.5 mg by mouth in the morning. 3 07/25/20 25 Active nystatin (Mycostatin) 353129 UNIT/GM powderIndications: Tinea Apply topically in the morning and in the evening and before bedtime. 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 Encounters Date Type Department Care Team Description 05/02/2025 1:00 PM EDT Procedure Visit [facility] [address] [place] [address] Meera Jimenez PA Tinea (Primary Dx); Well woman exam with routine gynecological exam; Encounter for screening mammogram for malignant neoplasm of breast; Vaginal dryness, menopausal 05/02/2025 Bamboo flowsheet [facility] [address] [place] [address] Meera Jimenez PA from Last 3 Months Social History Tobacco Use Types Packs/Day Years Used Date Smoking Tobacco: Never Assessed Comments No Sex and Gender Information Value Date Recorded Sex Assigned at Not on file Legal Sex Female 9:01 AM EDT Gender Identity Not on file Sexual Orientation Not on file Last Filed Vital Signs Vital Sign Reading Time Taken Comments Blood Pressure 110/72 05/02/2025 1:04 PM EDT Pulse - - Temperature - - Respiratory Rate - - Oxygen Saturation - - Inhaled Oxygen Concentration - - Weight 71.8 kg (158 lb 4 oz) 05/02/2025 1:04 PM EDT Height 149.9 cm (4' 11 ) 08/05/2023 2:34 PM EST Body Mass Index 31.96 08/05/2023 2:34 PM EST Plan of Treatment Health Maintenance Due Date Last Done Comments Influenza Vaccine (#1) 2025 2, 07/11/2020, 06/29/2016 Pneumococcal Vaccine: 65+ Years Completed 7, 06/29/2016 Insurance MEDICARE [facility] Care Teams Grill Associate Relationship Specialty Start Date End Date Kole Servin MD [address] [place] [address] PCP - General Family Medicine 04/06/23
--- OUTSIDE RECORDS SUMMARY | 2025-06-01 12:38 | XMS_ITS | Encounter Summary ---
Author Organization [facility] Address [address] [facility] [place] [address] Care Team Providers Care Freight Breaker Name Role Phone Kole Servin MD Primary Care Provider [phone] Encounter Details Date Type Department Care Team (Late Contact Info) Description 04/04/2024 Orders Only [facility] [address] [address] Alicia Field MA [address] [place] [address] Social History Tobacco Use Types Packs/Day Years Used Date Smoking Tobacco: Never Assessed Comments No Sex and Gender Information Value Date Recorded Sex Assigned at Not on file Legal Sex Female 9:01 AM EDT Gender Identity Not on file Sexual Orientation Not on file documented as of this encounter Plan of Treatment Not on file documented as of this encounter Procedures Procedure Name Priority Date/Time Associated Diagnosis Comments PAP SMEAR Routine 03/29/2024 12:00 AM EDT documented in this encounter Results * Pap Smear (03/29/2024 12:00 AM EDT) Swab Cervical swab / Unknown us Meera [facility] CYTOLOGY ORDERABLES Final Re sult EXTERNAL LAB documented in this encounter Visit Diagnoses Not on filedocumented in this encounter Care Teams Freight Breaker Relationship Specialty Start Date End Date Kole Servin MD [address] [place] [address] PCP - General Family Medicine 04/06/23 documented as of this encounter
--- OUTSIDE RECORDS SUMMARY | 2025-06-01 12:38 | XMS_ITS | Encounter Summary ---
Author Organization [facility] Address [address] [facility] [place] [address] Care Team Providers Care Security Expert Name Role Phone Kole Servin MD Primary Care Provider [phone] Encounter Details Date Type Department Care Team (Late st Contact Info) Description 04/20/2024 Orders Only [facility] [address] [place] [address] Meera Jimenez PA [address] [place] [address] Social History Tobacco Use Types Packs/Day Years Used Date Smoking Tobacco: Never Assessed Comments No Sex and Gender Information Value Date Recorded Sex Assigned at Not on file Legal Sex Female 9:01 AM EDT Gender Identity Not on file Sexual Orientation Not on file documented as of this encounter Plan of Treatment Not on file documented as of this encounter Visit Diagnoses Not on filedocumented in this encounter Care Teams Security Expert Relationship Specialty Start Date End Date Kole Servin MD [address] [facility] [place] [address] PCP - General Family Medicine 04/06/23 documented as of this encounter
--- OUTSIDE RECORDS SUMMARY | 2025-06-01 12:38 | XMS_ITS | Encounter Summary ---
Author Organization [facility] Address [address] [place] [address] Care Team Providers Care Home Weatherizing Worker Name Role Phone Kole Servin MD Primary Care Provider [phone] Encounter Details Date Type Department Care Team (Late st Contact Info) Description 04/03/2024 Clinisync Result Encounter [facility] External Department Unsolicited Meera Aguayo PA [address] [place] [address] [place] [address] Social History Tobacco Use Types Packs/Day Years [...] AM EDT Narrative 04/03/2024 9:12 AM EDT The [address] [address] XRay Report Signed Patient: KUCHTNEREIDA Barrios MR#: [id number] : 1940 Acct:[id number] Age/Sex: 84 / F ADM Date: 04/03/24 Loc: [facility] Attending Dr: Meera Aguayo Ordering Physician: Meera Aguayo Date of Service: 04/03/24 Procedure(s): XR DEXA axial skeleton Accession Number(s): [id number] cc: Meera Aguayo; Kole Servin M.D. [place] [id number] Patient Name: NEREIDA AGOSTO MRN: [id number] date: 1940 Sex: F Assigned Patient Location: [facility] Current Patient Location: [facility] Accession/Order Number: [id number] Exam Date: 04/03/2024 07:45 Report Date: 04/03/2024 [...] prevention and treatment of osteoporosis. Osteoporos Int. 2021;33(10):2808-6357. doi: 10.1007/r24203-022-96314-z. Epub 2021Jan 01. Erratum in: Osteoporos Int. 2021Apr 02;: PMID: [id number]; PMCID: [id number]. Electronically authenticated by: ELADIO MATTHEWS Date: 04/03/2024 09:09 Dictated By: Eladio Matthews M.D. Signed By: 04/03/24911 DD/ 8 TD/TT: Chronic Disease Epidemiologist: Procedure Note Radiology, Radiologist, MD - 04/03/2024 [place] [address] XRay Report Signed Patient: NEREIDA AGOSTO PMR#: [id number] : 1940cct:[id number] Age/Sex: 84 / FADM Date: 04/03/24 Loc: [facility] Attending Dr: Meera Aguayo Ordering Physician: Meera Aguayo Date of Service: 04/03/24 Procedure(s): XR DEXA axial skeleton Accession Number(s): [id number] cc: Meera Aguayo; Kole Servin M.D. The [address] [address] Patient Name: NEREIDA AGOSTO MRN: [id number] date: 1940 Sex: F Assigned Patient Location: [facility] Current Patient Location: [facility] Accession/Order Number: [id number] Exam Date: 04/03/2024 07:45 Report Date: 04/03/2024 [...] 10-year hip fracture risk >= 3% or o43-hbps major osteoporosis-related fracture risk >= 20% (i.e., [...] to prevention and treatment of osteoporosis.Osteoporos Int. 2021;33(10):1519-5765. doi: 10.1007/a45210-546-31425-l. Epub . Erratum in: Osteoporos Int. 2021Apr 02;: PMID: [id number]; PMCID: [id number]. Electronically authenticated by: ELADIO MATTHEWS Date: 04/03/2024 09:09 Dictated By: Eladio Matthews M.D. Signed By:04/03/24911 DD/ 8 TD/TT: Chronic Disease Epidemiologist: Meera JONES [facility] Final Result documented in this encounter Visit Diagnoses Not on filedocumented in this encounter Care Teams Home Weatherizing Worker Relationship Specialty Start Date End Date Kole Servin MD [address] [place] [phone] PCP - General Family Medicine 04/06/23 documented as of this encounter
--- OUTSIDE RECORDS SUMMARY | 2025-06-01 12:38 | XMS_ITS | Encounter Summary ---
Author Organization [facility] Address [address] [place] [address] Care Team Providers Care Boom Supervisor Name Role Phone oKle Servin MD Primary Care Provider [phone] Encounter Details Date Type Department Care Team (Late st Contact Info) Description 05/17/2025 Orders Only [address] [address] Ashley Tran MA Abnormal PFT (Primary Dx) Social History Tobacco Use Types [...] Information Value Date Recorded Sex Assigned at Female 04/06/2025 2:27 PM EDT Legal Sex Female 12:14 AM EDT Gender Identity Female 04/06/2025 2:27 PM EDT Sexual Orientation Heterosexual or Straight 09/2024 2:27 PM EDT documented as of this encounter Plan of Treatment Upcoming Encounters Date Type Department Care Team (Late st Contact Info) Description 07/03/2025 2:30 PM EDT Office Visit [facility] [address] [place] [address] Zeb Chicas MD [address] [facility] [place] [address] Scheduled Orders Name Type Priority Associated Diagnoses Orde r Schedule XR chest 2 views Imaging Routine Abnormal PFT Expected: 05/17/2025, Expires: 05/17/2026 documented as of this encounter Visit Diagnoses Diagnosis Abnormal PFT- Primary Nonspecific abnormal results of pulmonary system function study documented in this encounter Care Teams Boom Supervisor Relationship Specialty Start Date End Date Kole Servin MD [facility] [place] [address] PCP - General 05/28/22 documented as of this encounter
--- OUTSIDE RECORDS SUMMARY | 2025-06-01 12:38 | XMS_ITS | Encounter Summary ---
Author Organization [facility] Address [address] [facility] [place] [address] Care Team Providers Care Fashion Consultant Name Role Phone Jacinto Kaur MD Primary Care Provider [phone] Encounter Details Date Type Department Care Team (Late Contact Info) Description 07/12/2023 Clinisync Result Encounter [facility] External Department Unsolicited Adriana Murguia, DO [address] [facility] [place] [address] Social History Tobacco Use Types Packs/Day Years [...] EST Narrative 07/12/2023 10:41 AM EST The [address] [address] Electrocardiograph Report Signed Patient: SURENDRAJOI P MR#: [id number] : 1940 Acct:[id number] Age/Sex: 83 / F ADM Date: 07/12/23 Loc: PST Attending Dr: Adriana Murguia D.O. Ordering Physician: Adriana Murguia D.O. Date of Service: 07/12/23 Procedure(s): ECG 12 lead Accession Number(s): [id number] cc: [facility] Test Date: 2023-07-12 Pat Name: JOI DUNCAN Department: Room: - Gender: Female Engineering Illustrator: : 1940 Requested By: ADRIANA MURGUIA Order Number: [id number] Reading MD: JACINTO KAUR Measurements Intervals [place] Rate: 70 P: TX: QRS: -3 QRSD: 94 T: 28 QT: 427 QTc: 461 Interpretive Statements ATRIAL FIBRILLATION ABNORMAL RHYTHM ECG No previous ECG available for comparison Electronically Signed On 07-15-2023 6:22:44 EST by JACINTO KAUR Dictated By: Jacinto Kaur M.D. Signed By: 07/15/23622 DD/ 1041 TD/TT: Sports Lawyer: Procedure Note Radiology, Radiologist, MD - 07/15/2023 [place] [address] Electrocardiograph Report Signed Patient: JOI DUNCAN PMR#: [id number] : 1940cct:[id number] Age/Sex: 83 / FADM Date: 07/12/23 Loc: PST Attending Dr: Adriana Murguia D.O. Ordering Physician: Adriana Murguia D.O. Date of Service: 07/12/23 Procedure(s): ECG 12 lead Accession Number(s): [id number] cc: [facility] Test Date: 2023-07-12 Pat Name: JOI DUNCAN Department: Room: - Gender: Female Engineering Illustrator: : 1940 Requested By: ADRIANA MURGUIA Order Number: [id number] Reading MD: JACINTO HOY Measurements Intervals [place] Rate: 70 P: TX: QRS: -3 QRSD: 94 T: 28 QT: 427 QTc: 461 Interpretive Statements ATRIAL FIBRILLATION ABNORMAL RHYTHM ECG No previous ECG available for comparison Electronically Signed On 07-15-2023 6:22:44 EST by JACINTO KAUR Dictated By: Jacinto Kaur M.D. Signed By:07/15/23622 DD/ 1041 TD/TT: Sports Lawyer: us Adriana Murguia DO [facility] Final Result documented in this encounter Visit Diagnoses Not on filedocumented in this encounter Care Teams Fashion Consultant Relationship Specialty Start Date End Date Jacinto Kaur MD [address] [place] [address] PCP - General Family Medicine 04/06/23 documented as of this encounter
--- OUTSIDE RECORDS SUMMARY | 2025-06-01 12:41 | XMS_ITS | CCD ---
Author Organization [facility] Care Team Providers Care Asbestos Cloth Inspector Name Role Phone SANDYIVANPETER Referring Unavailable JACINTO SERVIN Primary Care Unavailable CHAPITO SHIPLEY Attending Unavailable CHAPITO SHIPLEY Admitting Unavailable IA Procedure Practitioner Unavailab SILVIANO Rendon Surgeon Unavailable [...] Unavailable HOY ., DR CASEY Attending Unavailable BENTON, DR KELSI Aguirre Consulting Unavailable ZIEBER, DR DUDLEY Lee Consulting Unavailable HOY ., DR CASEY Admitting Unavailable HOY ., DR CASEY Primary Care Unavailable HOY ., DR CASEY Attending Unavailable HOY ., DR CASEY Admitting Unavailable HOY ., DR CASEY Primary Care Unavailable HOY ., DR CASEY Consulting Unavailable HOY ., DR CASEY Attending Unavailable Jacinto Servin Primary Care Physician MD Rashi Swan Attending Provider [phone] Rashi Swan Attending Unavailable Rashi Swan Admitting Unavailable Harmony Bettencourt Attending Unavailable Harmony Bettencourt Attending Unavailable Rashi SWAN Attending Unavailable Rashi SWAN Attending Unavailable Rashi SWAN Attending Unavailable Harmony Bettencourt Admitting Unavailable Harmony Bettencourt Attending Unavailable Harmony Bettencourt Referring Unavailable Harmony Bettencourt Attending Unavailable Jacinto Servin MD Primary Care Provider [phone] Jacinto Servin MD Primary Care Provider [phone] MEERA AGUAYO Attending Unavailable KHANG LORENZO Attending Unavailable Allergies Allergy Classification Reported Allergen(s) Allergy Type Date of Onset Reaction(s) Facility (9 sources) Sulfonamides (Antibiotic); Translations: [sulfa drugs] Drug allergy Unknown (qualifier value) [facility] [place] (2 sources) Sulfonamides (Antibiotic); Translations: [SULFA (SULFONAMIDE ANTIBIOTICS)] Drug allergy (disorder) 0 [facility] Repository (2 sources) ALPRAZolam; Translations: [Xanax] Drug Allergy [facility] Repository (4 sources) Alprazolam; Translations: [ALPRAZOLAM] Allergy to substance 4 Unknown [facility] (3 sources) Sulfonamides (Antibiotic) Drug Allergy 0 Other, Unknown, [...] 2020 12:53pm apixaban 5 mg oral tablet (11 sources) Factor Xa Inhibitor Start: 02-02-2020 take [...] 2020 1:51pm carvedilol 12.5 mg oral tablet (12 sources) alpha-Adrenergic Elvin, beta-Adrenergic Elvin Start: 01-22-2023 [...] 02, 2020 12:00am February 06, 2020 12:53pm estradiol 0.1 mg/ml vaginal cream (1 source) Estrogen Start: 05-02-2025 estradiol (Est race) 0.1 MG/GM vaginal cream Indications: Well woman exam with routine gynecological exam , Encounter for screening mammogram for malignant neoplasm of breast 2g vaginal daily for 2 weeks, then 2 times weekly following initial 2 weeks 42.5 g 05/02/2025 Active Start: 05-02-2025 estradiol (Est race) 0.1 MG/GM vaginal cream Indications: Well woman exam with routine gynecological exam , Encounter for screening mammogram for malignant neoplasm of breast 2g vaginal daily for 2 weeks, then 2 times weekly following initial 2 weeks 42.5 g 05/02/2025 Active ferrous sulfate 325 mg oral tablet (3 [...] daily furosemide (Lasix) 5 MG split tablet (3 sources) Start: 07-19-2022 take 4 tablets by mouth [...] spasm levothyroxine sodium 0.05 mg oral tablet (11 sources) l-Thyroxine Start: 01-22-2023 take 1 tablet by mouth once daily Start: 02-02-2020 take 1 tablet by brittani th before mealtime Synthroid 50 MCG tablet Take 50 mcg by mouth in the morning. Take before meals. 01/22/2023 Active lisinopril 20 mg oral tablet (11 sources) Angiotensin Converting Enzyme Inhibitor Start: 07-02-2022 take 1 tablet by mouth in the morning lisinopril 20 MG tablet Take 20 mg by mouth in the morning. 07/02/2022 Active Start: 02-02-2020 take 5 mg by mouth once daily Lisinopril Active 5 MG PO Daily February 02, 2020 12:00am meclizine hydrochloride 25 mg oral tablet (10 sources) Antiemetic Start: 02-02-2023 take 1 tablet by mouth twice daily meclizine 25 mg Tab 25 mg = 1 tab(s), Oral, BID, Refills(s) 0 Start Date: 02/02/23 Status: Ordered nystatin 100 unt/mg topical powder (1 source) Polyene Antifungal Start: 05-02-2025 End: 05-02-2026 nystatin (Mycostatin) 301889 UNIT/GM powder Indications: Tinea Apply topically in the morning and in the evening and before bedtime. 15 g 05/02/2025 05/02/2026 Active oxyCODONE hydrochloride 5 mg oral tablet (1 source) Opioid Agonist Start: 02-06-2020 take 1 tablet by mouth every four to six hours as needed Oxycodone Active 5 MG PO EVERY 4-6 HOURS 30 7 February 06, 2020 5 mg 1to2 tablets orally as needed spironolactone 25 mg oral tablet (3 sources) Aldosterone Antagonist Start: 08-05-2023 End: 07-25-2025 spironolactone [...] (1 source) Start: 12-15-2017 End: 02-02-2020 take 66653 ug by mouth once daily Biotin Discontinued 17931 MCG PO Daily December 15, 2017 12:00am February 02, 2020 1:51pm C,E,Zinc,Copper 27-Cycca2s-Gvw (Ocuvite Adult 50 Plus) 250-5-1 mg Capsule (1 source) Start: 12-14-2017 End: 02-02-2020 C,E,Zinc,Copper 17-Ybhiw0s-Wtv (Ocuvite Adult 50 Plus) 250-5-1 mg Capsule [...] 2020 1:51pm cholecalciferol 0.01 mg oral tablet (4 sources) Vitamin D Start: 12-15-2017 End: 02-02-2020 take 2 tablets by mouth once daily Cholecalciferol (Vitamin D3) (Vitamin D3) 400 unit Tablet Discontinued 800 UNIT PO Daily December 15, 2017 12:00am February 02, 2020 1:51pm take 1 capsule by [...] 0, Prophylaxis Start Date: 01/22/23 Status: Ordered Oran Oil-Eure-3 Fatty Acids (Oran Oil-1000) 1,000-200 mg Capsule (1 source) Start: 12-15-2017 End: 02-02-2020 Oran Oil-Eure-3 Fatty Acids (Oran Oil-1000) 1,000-200 mg Capsule Discontinued 2000 MG [...] Translations: [Atrial fibrillation] Onset: 2 01-22-2023 Chronic Congestive heart failure; nonhypertensive (8 sources) Unspecified [...] W/HEART FAIL] Onset: 2 Chronic Menopausal disorders (2 sources) Other primary ovarian failure; 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] Onset: 2 05-02-2025 Chronic Mycoses (1 source) Dermatophytosis; Translations: [Dermatophytosis, unspecified] 05-02-2025 Episodic Osteoporosis (11 sources) Age-related osteoporosis without current pathological fracture; Translations: [Osteoporosis] Onset: 2 01-22-2023 Chronic Other aftercare (1 source) Drug therapy finding; Translations: [senior care (current) use of anticoagulants] 08-18-2023 Episodic Other [...] index (BMI) 32.0-32.9, adult] Onset: 5 Chronic Other screening for suspected conditions (not mental disorders or infectious disease) (5 sources) Encounter for screening mammogram for malignant neoplasm of breast; Translations: [Patient encounter status] Onset: 2 Episodic Emelia-; endo-; and myocarditis; cardiomyopathy (except that [...] Date Documented Da te Episodic/Chronic Cardiac dysrhythmias (3 sources) ECG: sinus bradycardia; Translations: [Bradycardia, unspecified] Onset: 02-15-2025 08-18-2023 Episodic Deficiency and other anemia (1 source) Anemia, unspecified; Translations: [ANEMIA UNSPECIFIED] Onset: 01-23-2022 Episodic Diabetes mellitus without complication (1 source) Other abnormal glucose; Translations: [OTHER ABNORMAL GLUCOSE] Onset: 01-23-2022 Episodic Other injuries and conditions due to external causes (1 source) History of falling; Translations: [HISTORY OF FALLING] Onset: 01-23-2022 Episodic Other lower respiratory disease (2 sources) Shortness of breath; Translations: [Shortness of breath] Onset: 02-15-2025 Episodic Results Test Name Value Interpretation Reference Range Facility 36on 05-17-2025 36 PER [facility] PULM P T NEEDS CHEST XRAY FOR APPT ON 06/04/25. PT INFORMED AND ORDER SENT TO [facility] Orders Onlyon 05-17-2025 Orders Only [id number] Nereida Agosto P 1940 Date Provider Department Wishon 05/17/2025 [id number] [facility] Family History Problem Relation Age of Onset No Known Problems Mother No Known Problems Father Family Status - Relation Status Age at Mother Father Normal [facility] 36on 03-21-2025 36 Khang Lorenzo CNP to Me (Selected Message) MT 03/20/25 2:27 PM Note Please let her know her lung function testing appears worse than previously that I have available for review. Please refer her to pulmonary for further evaluation. Thank you Pulmonary function testing Advised patient of PFT results. Patient verbalized understanding and requested the referral for pulmonary be sent to [facility]. Referral sent [facility] Results Follow-Upon 03-20-20 Results Follow-Up [id number] Nereida Agosto P 1940 Date Provider Department Wishon 03/20/2025 [facility] None Family History Problem Relation Age of Onset No Known Problems Mother No Known Problems Father Family Status - Relation Status Age at Mother Father Normal [facility] Orders Onlyon 03-15-2025 Orders Only [id number] Nereida Agosto P 1940 Date Provider Department Wishon 03/15/2025 [id number], FABIOLA [facility] Family History Problem Relation Age of Onset No Known Problems Mother No Known Problems Father Family Status - Relation Status Age at Mother Father Normal [facility] [place] Office Visiton 02-15-2025 Follow-up visit [id number] Nereida Agosto P 1940 Date Provider Department Wishon 02/15/2025 [facility] Family History Problem Relation Age of Onset No Known Problems Mother No Known Problems Father Family Status - Relation Status Age at Mother Father Level of Service:85373 IA OFFICE/OUTPATIENT ESTABLISHED MOD MDM 30 MIN Reason for Visit and Comments: Shortness of Breath [315021] Atrial Fibrillation [80] Normal [facility] CALCIUMon 11-15-2024 Calcium [Mass/Vol] 9.4 mg/dL 8.5 - 10. 1 mg/dL [facility] No Panel Informationon 11-15 [facility] CREATININEon 11-15-2024 Creatinine [Mass/Vol] 1.32 mg/dL High 0.55 - 1.02 mg/dL [facility] GFR/1.73 sq M.predicted CKD-EPI (S/P/Bld) [Vol rate/Area] 47 Low >=60 mL/min/1.73m 2 [facility] Interpretation and review of laboratory results Abnormal [facility] EGFR-NON AF CITIZEN [place] 39 Low >=60 mL/min/1.73m 2 [facility] Gastroenterology Office/Clin ic Noteon 09-28-2024 Gastroenterology Office/Clinic [...] influenza, unspec (more content not included)... Normal [facility] Comment on above: Result Comment: Elec tronically Signed By: Rut AHMADI, Harmony Jay\.br\Date and Time Signed: 09/28/24 09:23 EST Reminderson 09-26-2024 Reminders Reminders From: Uyen Carnes To: [facility] - Reminders/Recalls; Sent: 09/26/2024 12:44:45 EST Show [...] POLYPECTOMY: HYPERPLASTIC COLONIC GLANDULAR MUCOSAL POLYP Normal [facility] Surgical Pathology Reporton 09-15-2024 Surgical Pathology Report [facility] [address] [place] [address]- Surgical Pathology Report Collected Date/Time: 09/13/2024 11:37 [...] is entirely submitted in one cassette. (DC) DC:[facility] Microscopic Description Microscopic examination performed unless gross only specified. Normal [facility] Comment on above: Performed By: #### [id number] #### [facility] [address] [place] [address] Main OR Intraoperative Recor don 09-14-2024 Main OR Intraoperative Record Main OR Intraoperative Record IntraOp Document Type FT Summary Primary Physician: Harmony Bettencourt MD Finalized Date/Time: 09/14/24 14:42:48 Pt. Name: NEREIDA AGOSTO /Sex: 1940 Female Med Rec #: [id number] Physician: Harmony Bettencourt MD Financial #: [id number] Pt. Type: O Room/Bed: / Admit/Disch: 09/13/24 [...] 1 Entry 2 Entry 3 Case Attendee [facility], Freddie Bettencourt MD, Harmony Barrera RN, Shawn Llanos Role Performed Anesthesiologist Surgeon - Primary Rolled Seat Trimmer - Primary Electorate Officer Time In 09/13/24 11:15:00 09/13/24 11:15:00 09/13/24 11:15:00 Time Out 09/13/24 11:42:00 09/13/24 11:42:00 09/13/24 11:42:00 Procedure COLONOSCOPY(.) COLONOSCOPY(.) COLONOSCOPY(.) Comments Dr. Whalen supervising case Last Modified By: Bruce RN, Shawn Barrera RN, Shawn Medina RN 09/13/24 11:54:01 09/13/24 11:54:01 09/13/24 11:54:01 Entry 4 Entry 5 Case Attendee Eliezer BAIG, Reymundo Bradshaw Role Performed Scrub - Primary Staff - Other Time In 09/13/24 11:15:00 09/13/24 11:28:00 Time Out 09/13/24 11:42:00 09/13/24 11:42:00 Procedure COLONOSCOPY(.) COLONOSCOPY(.) Comments help in room Last Modified By: Shawn Barrera RN, RN, Morgan E 09/13/24 11:54:01 09/13/24 11:54:01 Perioperative Protocols FT [...] No Time Out Freddie Hoskins, Given Participants Harmony Bettencourt MD, Shawn Barrera RN, Schafer COMPUTER SYSTEMS ANALYSTGini Time Out Complete 09/13/24 11:20:00 Outcomes Met? [...] corrective devic (more content not included)... Normal [facility] Discharge Instructionson Discharge Instructions Discharge Instructions NEREIDA AGOSTO :1940 Visit Date:09/13/2024 Inpatient Discharge Instructions Your Care Team Admitting Physician - Harmony Bettencourt MD Referring Physician - Harmony Bettencourt MD. Reason for Your Visit HX OF COLON [...] AM EST With: Harmony Bettencourt MD Where: [facility] [address] [address]- New Follow Up Appointments after Discharge Follow Up with Rut AHMADI, Harmony Jay, [facility], [facility] When: Comments: -Office to call for pathology results. Call for any problems. [phone] Where: [address] [place] [address] [phone] Business (1) Medications What How Much When [...] on th (more content not included)... Normal [facility] Comment on above: Result Comment: Elec tronically Signed By: Celio BOWER, Renetta Aquino\.br\Date and Time Signed: 09/13/24 12:22 EST H&P Updateon 09-13-2024 H&P Update H&P Update Patient: NEREIDA AGOSTO Age: 84 years Sex: Female : 1940 Associated Diagnoses: None Author: Rut AHMADI, Harmony Jay Preoperative Information Chief compliant/Indication for procedure: Recurrent [...] Plan Diagnosis: Recurrent cecal polyp colonoscopy Normal [facility] Main OR PACU I Recordon Main OR PACU I Record Main OR PACU I Rec ord PACU Phase I Document Type FT Summary Primary Physician: Harmony Bettencourt MD Finalized Date/Time: 09/13/24 13:11:22 Pt. Name: XIANGDenisNEREIDA D.O.B./Sex: 1940 Female Med Rec #: [id number] Physician: Harmony Bettencourt MD Financial #: [id number] Pt. Type: O Room/Bed: / Admit/Disch: 09/13/24 [...] By: Renetta Pickens RN 09/13/24 13:11 Normal [facility] Main OR Preoperative Recordo n 09-13-2024 Main OR Preoperative Record Main OR Preoperative Record Holding Area Document Type FT Summary Primary Physician: Harmony Bettencourt MD Finalized Date/Time: 09/13/24 09:36:21 Pt. Name: NEREIDA AGOSTO/Sex: 1940 Female Med Rec #: [id number] Physician: Harmony Bettencourt MD Financial #: [id number] Pt. Type: O Room/Bed: / Admit/Disch: 09/13/24 [...] No Patient states Yes Comment - Adult [facility] postop adult Supervision supervision available Case Cancelled in No Holding Area see comments below for reason Last Modified By: Shawn Barrera RN 09/13/24 09:36:19 General Comments: pt finished bowel prep at 0730, per patient nothing to eat or drink since MSRN Finalized By: Shawn Barrera RN Document Signatures Signed By: Shawn Barrera RN 09/13/24 09:36 Normal [facility] Operative Reporton Operative Report Operative Report Patient: NEREIDA AGOSTO Age: 84 years Sex: Female : 1940 Associated Diagnoses: None Author: Harmony Bettencourt MD Pre-Procedure Procedure Date 09/13/2024 11:43:00 . Procedure Type: Colonoscopy with removal of tumor(s), polyp(s), or other lesion(s) by cold snare technique, endoscopic mucosal resection. Procedure provider Performed by Harmony Bettencourt MD. Current history and physical Documented on chart. Colonoscopy ([id number]) on 04/26/2024 at 84 Years. Colonoscopy ([id number]) on 02/24/2023 at 82 Years. Tubal ligation (606353704). Closed fracture of hip (825618082). Cardiac fluoroscopy (401393096).. Past Medical History No active or resolved past medical history items have been selected or recorded.. Family History Asthma Mother Renal cell carcinoma Brother . Procedure History Colonoscopy ([id number]) on 04/26/2024 at 84 Years. Colonoscopy ([id number]) on 02/24/2023 at 82 Years. Tubal ligation (083440829). Closed fracture of hip (638119425). Cardiac fluoroscopy (745253457).. Colorectal neoplasm risk assessment High risk Previous [...] 5. Normal terminal ileum Images Procedure images: Rec_hd_video__[id number].jpg Rec_hd_video__48_46_121.jpg Rec_hd_video__48_26_033.jpg Rec_hd_video__47_44_[id number].jpg Rec_hd_video__46_33_322.jpg Rec_hd_video__44_25_246.jpg Rec1_hd_video_ _T1_45_13_[id number].jpg Rec1_hd_video_ _T1_42_37_592.jpg Rec1_hd_video_ _T1_40_20_010.jpg Rec1_hd_video_ _T1_39_47_195.jpg Rec1_hd_video_ _T1_39_35_664.jpg Rec1_hd_video_ _T1_38_25_772.jpg Rec1_hd_video_ _T1_36_12_775.jpg . Post-Procedure Complications: none. Estimated blood loss: Minimal. Specimens: sent to pathology. De (more content not included)... [facility] Comment on above: Result Comment: Elec tronically Signed By: Rut AHMADI, Harmony Jay\.br\Date and Time Signed: 09/13/24 11:47 EST Other Comment: Erin martinez Attachment - attachment storage system not supported [id number] Can be viewed in [facility] Attachment - attachment storage system not supported [id number] Can be viewed in [facility] Attachment - attachment storage system not supported [id number] Can be viewed in [facility] Attachment - attachment storage system not supported [id number] Can be viewed in [facility] Attachment - attachment storage system not supported [id number] Can be viewed in [facility] Attachment - attachment storage system not supported [id number] Can be viewed in [facility] Attachment - attachment storage system not supported [id number] Can be viewed in [facility] Attachment - attachment storage system not supported [id number] Can be viewed in [facility] Attachment - attachment storage system not supported [id number] Can be viewed in [facility] Attachment - attachment storage system not supported [id number] Can be viewed in source systemMissing Attachment - attachment storage system not supported [id number] Can be viewed in source systemMissing Attachment - attachment storage system not supported [id number] Can be viewed in source systemMissing Attachment - attachment storage system not supported [id number] Can be viewed in source system Ambulatory Visit Summaryon 1 Ambulatory Visit Summary Ambulatory Visit Summary NEREIDA [...] EST With: Rut AHMADI, Harmony Jay Where: [facility] [address] [place] [address]- Medications What How Much When Instructions [...] choosing us for your care. [facility] Gastroenterology Office/Clin ic Noteon 06-08-2024 [...] influenza, unspecified formulation 06/29/2016 Recorded Normal [facility] Comment on above: Result Comment: Elec tronically Signed By: Rut AHMAID, Harmony Jay\.br\Date and Time Signed: 06/08/24 10:25 [...] E&M of Est. Patient Low 20-29 Min [address] [facility] Internal Ambulatory Referral Follow-up No qualifying data [...] SARS-CoV-2 (COVID-19) mRNA-1273 vaccine 10/18/2020 Recorded Normal [facility] Comment on above: Result Comment: Elec tronically Signed By: ALVARO AHMADI, Rashi Lee\alma delia\Date and Time Signed: 05/10/24 13:55 EDT Pathology Request for Lab Co rpon 04-26-2024 Pathology Request for Lab Sherley Normal [facility] Comment on above: Order Comment: PATHO LOGY GI SPECIMEN Result Comment: See report. Scanned copy available in EMR. PERFORMED BY: [place] [address] PATHOLOGIST SHAKER SCREEN OPERATOR JAVIER GOODE M.D. Performed By: #### P ATH TO [facility] #### [address] Ambulatory Visit Summaryon 0 03-15-2024 Ambulatory [...] choosing us for your care. Normal [facility] General Surgery Office/Clini c Noteon [...] Family Hist (more content not included)... Normal [facility] Comment on above: Result Comment: Elec tronically Signed By: ALVARO AHMADI, Rashi Weaver\Date and Time Signed: 03/15/24 14:08 EDT OCC BLD IMMUNO SCREENon 01-04 OCCULT BLOOD Positive Abnormal NEGATIVE [facility] Comment on above: Performed By: #### O BSCRN #### [facility] [address] [address] [address] Dinah Rodriges CBC AUTO DIFFon 01-18-2023 BASO # 0.0 103/ul Normal 0.0-0.1 [facility] Comment on above: Performed By: #### C BC #### [facility] [address] [address] [address] Dinah Rodriges Basophils/100 WBC (Bld) 0.6 % Normal 0.2-2.0 [facility] Comment on above: Performed By: #### C BC #### [facility] [address] [place] [address] Dr. Dinah Rodriges EO # 0.1 103/ul Normal 0.0-0.7 [facility] Comment on above: Performed By: #### C BC #### [facility] [address] [place] [address] Dr. Dinah Rodriges Eosinophils/100 WBC (Bld) 1.8 % Normal 0.9-7.0 [facility] Comment on above: Performed By: #### C BC #### [facility] [address] [place] [address] Dr. Dinah Rodriges Erythrocyte distribution width (RBC) [Ratio] 12.7 % Normal 11.0-15.0 [facility] Comment on above: Performed By: #### C BC #### [facility] [address] [place] [address] Dr. Dinah Rodriges Hematocrit (Bld) [Volume fraction] 39.7 % Normal 36.0-48.0 [facility] Comment on above: Performed By: #### C BC #### [facility] [address] [place] [address] Dr. Dinah Rodriges Hemoglobin (Bld) [Mass/Vol] 12.6 g/dL Normal 12.0-16.0 [facility] Comment on above: Performed By: #### C BC #### [facility] [address] [place] [address] Dr. Dinah Rodriges IG # 0.01 10e3/ul Normal 0.00-0.03 [facility] Comment on above: Performed By: #### C BC #### [facility] [address] [place] [address] Dr. Dinah Rodriges IG % 0.2 % Normal 0.0-0.5 [facility] Comment on above: Performed By: #### C BC #### [facility] [address] [place] [address] Dr. Dinah Rodriges LYMPH # 1.5 103/ul Normal 1.2-3.8 [facility] Comment on above: Performed By: #### C BC #### [facility] [address] [place] [address] Dr. Dinah Rodriges Lymphocytes/100 WBC (Bld) 28.7 % Normal 20.5-60.0 [facility] Comment on above: Performed By: #### C BC #### [facility] [address] [place] [address] Dr. Dinah Rodriges MANUAL DIFF REQ NO Normal [facility] Comment on above: Performed By: #### C BC #### [facility] [address] [place] [address] Dr. Dinah Rodriges MCH (RBC) [Entitic mass] 30.7 pg Normal 26.7-34.0 [facility] Comment on above: Performed By: #### C BC #### [facility] [address] [place] [address] Dr. Dinah Rodriges MCHC (RBC) [Mass/Vol] 31.7 g/dL Normal 29.9-35.2 [facility] Comment on above: Performed By: #### C BC #### [facility] [address] [place] [address] Dr. Dinah Rodriges MCV (RBC) [Entitic vol] 96.8 fL Normal 81.0-99.0 [facility] Comment on above: Performed By: #### C BC #### [facility] [address] [place] [address] Dr. Dinah Rodriges MONO # 0.4 103/ul Normal 0.3-0.8 [facility] Comment on above: Performed By: #### C BC #### [facility] [address] [place] [address] Dr. Dinah Rodriges Monocytes/100 WBC (Bld) 7.3 % Normal 1.7-12.0 [facility] Comment on above: Performed By: #### C BC #### [facility] [address] [place] [address] Dr. Dinah Rodriges NEUT # 3.1 103/ul Normal 1.4-6.5 [facility] Comment on above: Performed By: #### C BC #### [facility] [address] [place] [address] Dr. Dinah Rodriges Neutrophils/100 WBC (Bld) 61.4 % Normal 43.0-75.0 [facility] Comment on above: Performed By: #### C BC #### [facility] [address] [address] [address] Dinah Rodriges Platelet mean volume (Bld) [Entitic vol] 9.7 fL Normal 9.5-13.5 [facility] Comment on above: Performed By: #### C BC #### [facility] [address] [address] [address] Dinah Rodriges PLT 163 103/ul Normal 150-450 [facility] Comment on above: Performed By: #### C BC #### [facility] [address] [address] [address] Dinah Rodriges RBC 4.10 106/ul Critically low 4.20-5.40 [facility] Comment on above: Performed By: #### C BC #### [facility] [address] [address] [address] Dinah Rodriges WBC 5.1 103/ul Normal 4.0-11.0 [facility] Comment on above: Performed By: #### C BC #### [facility] [address] [address] [address] Dinah Rodriges FREE T3on 01-18-2023 FREE T3 2.11 pg/mlL Critically low 2.18-3.98 [facility] Comment on above: Performed By: #### C MP, TSH, T4, LIPID, FT3 #### [facility] [address] [address] [address] Dinah Rodriges GLYCOHEMOGLOBIN A1Con 2022 ADA RECOMMENDATION SEE BELOW Normal [facility] Comment on above: Result Comment: ADA RECOMMENDED LIMIT 4.0 - 6.0 ADA THERAPEUTIC TARGET < 7.0 ACTION SUGGESTED > 7.0 Performed By: #### A 1C ####[facility] [address] [address]Dr. Dinah Rodriges Glucose [Mass/Vol] 105 mg/dL Normal [facility] Comment on above: Performed By: #### A 1C ####[facility] [address] [place], [place] [address]NyDr. Dinah Rodriges HbA1c (Bld) [Mass fraction] 5.3 % Normal 4.5-6.2 [facility] Comment on above: Performed By: #### A 1C ####[facility] [address] [address]Dr. Dinah Rodriges LIPID PROFILEon 01-18-2023 CHOL-HDL RATIO NORM SEE BELOW Normal [facility] Comment on above: Result Comment: 3.3 - 4.4 LOW RISK 4.4 - 7.1 AVERAGE RISK 7.1 - 11.0 MODERATE RISK >11.0 HIGH RISK Performed By: #### C MP, TSH, T4, LIPID, FT3 #### [facility] [address] [address] [address] Dinah Rodriges Cholesterol [Mass/Vol] 168 mg/dL Normal <=200 [facility] Comment on above: Performed By: #### C MP, TSH, T4, LIPID, FT3 #### [facility] [address] [address] [address] Dinah Rodriges Cholesterol in HDL [Mass/Vol] 61 mg/dL Critically high 40-60 [facility] Comment on above: Performed By: #### C MP, TSH, T4, LIPID, FT3 #### [facility] [address] [address] [address] Dinah Rodriges Cholesterol in LDL [Mass/Vol] 94.0 mg/dL Normal [facility] Comment on above: Performed By: #### C MP, TSH, T4, LIPID, FT3 #### [facility] [address] [address] [address] Dinah Rodriges Cholesterol.total/Cho lesterol in HDL [Mass ratio] 2.8 {ratio} Normal [facility] Comment on above: Performed By: #### C MP, TSH, T4, LIPID, FT3 #### [facility] [address] [address] [address] Dinah Rodriges HDL NORMAL > or = 60 mg/dl - LO W CARDIOVASCULAR RISK <40 mg/dl - HIGH CARDIOVASCULAR RISK Normal [facility] Comment on above: Performed By: #### C MP, TSH, T4, LIPID, FT3 #### [facility] [address] [place] [address] Dr. Dinah Rodriges LDL CALC NORMAL SEE BELOW Normal [facility] Comment on above: Result Comment: <100 mg/dl OPTIMAL 100 - 129 mg/dl NEAR OR ABOVE OPTIMAL 130 - 159 mg/dl BORDERLINE HIGH 160 - 189 mg/dl HIGH >190 mg/dl VERY HIGH Performed By: #### C MP, TSH, T4, LIPID, FT3 #### [facility] [address] [place] [address] Dr. Dinah Rodriges Triglyceride [Mass/Vol] 65 mg/dL Normal <=150 [facility] Comment on above: Performed By: #### C MP, TSH, T4, LIPID, FT3 #### [facility] [address] [place] [address] Dr. Dinah Rodriges VLDL CALC 13.0 mg/dL Normal [facility] Comment on above: Performed By: #### C MP, TSH, T4, LIPID, FT3 #### [facility] [address] [place] [address] Dr. Dinah Rodriges PROF 14(COMP METB)on 023 Albumin [Mass/Vol] 3.4 g/dL Normal 3.4-5.0 [facility] Comment on above: Performed By: #### C MP, TSH, T4, LIPID, FT3 #### [facility] [address] [place] [address] Dr. Dinah Rodriges Albumin/Globulin [Mass ratio] 1.0 {ratio} Normal [facility] Comment on above: Performed By: #### C MP, TSH, T4, LIPID, FT3 #### [facility] [address] [place] [address] Dr. Dinah Rodriges ALP [Catalytic activity/Vol] 59 U/L Normal 46-116 [facility] Comment on above: Performed By: #### C MP, TSH, T4, LIPID, FT3 #### [facility] [address] [place] [address] Dr. Dinah Rodriges ALT [Catalytic activity/Vol] 13 U/L Critically low 14-59 [facility] Comment on above: Performed By: #### C MP, TSH, T4, LIPID, FT3 #### [facility] [address] [address] [address] Dinah Rodriges Anion gap [Moles/Vol] 10.7 mmol/L Normal Th e [facility] Comment on above: Performed By: #### C MP, TSH, T4, LIPID, FT3 #### [facility] [address] [address] [address] Dinah Rodriges AST [Catalytic activity/Vol] 14 U/L Critically low 15-37 [facility] Comment on above: Performed By: #### C MP, TSH, T4, LIPID, FT3 #### [facility] [address] [place] [address] Dr. Dinah Rodriges Bilirubin [Mass/Vol] 0.3 mg/dL Normal 0.2-1.0 [facility] Comment on above: Performed By: #### C MP, TSH, T4, LIPID, FT3 #### [facility] [address] [place] [address] Dr. Dinah Rodriges Calcium [Mass/Vol] 9.4 mg/dL Normal 8.5-10.1 [facility] Comment on above: Performed By: #### C MP, TSH, T4, LIPID, FT3 #### [facility] [address] [place] [address] Dr. Dinah Rodriges Chloride [Moles/Vol] 106 mmol/L Normal 98-107 [facility] Comment on above: Performed By: #### C MP, TSH, T4, LIPID, FT3 #### [facility] [address] [place] [address] Dr. Dinah Rodriges CO2 [Moles/Vol] 31.9 mmol/L Normal 21.0-32.0 [facility] Comment on above: Performed By: #### C MP, TSH, T4, LIPID, FT3 #### [facility] [address] [place] [address] Dr. Dinah Rodriges Creatinine [Mass/Vol] 0.95 mg/dL Normal 0.55-1.02 [facility] Comment on above: Performed By: #### C MP, TSH, T4, LIPID, FT3 #### [facility] [address] [place] [address] Dr. Dinah Rodriges EGFR-AF CITIZEN [place] >60 Normal >=60 [facility] Comment on above: Performed By: #### C MP, TSH, T4, LIPID, FT3 #### [facility] [address] [place] [address] Dr. Dinah Rodriges EGFR-NON AF CITIZEN [place] 57 mL/min/1.73m2 Critically low >=60 [facility] Comment on above: Performed By: #### C MP, TSH, T4, LIPID, FT3 #### [facility] [address] [place] [address] Dr. Dinah Rodriges Globulin (S) [Mass/Vol] 3.4 g/dL Normal [facility] Comment on above: Performed By: #### C MP, TSH, T4, LIPID, FT3 #### [facility] [address] [place] [address] Dr. Dinah Rodriges Glucose [Mass/Vol] 88 mg/dL Normal 74-106 [facility] Comment on above: Performed By: #### C MP, TSH, T4, LIPID, FT3 #### [facility] [address] [place] [address] Dr. Dinah Rodriges Potassium [Moles/Vol] 4.6 mmol/L Normal 3.5-5.1 [facility] Comment on above: Performed By: #### C MP, TSH, T4, LIPID, FT3 #### [facility] [address] [place] [address] Dr. Dinah Rodriges Protein [Mass/Vol] 6.8 g/dL Normal 6.4-8.2 [facility] Comment on above: Performed By: #### C MP, TSH, T4, LIPID, FT3 #### [facility] [address] [place] [address] Dr. Dinah Rodriges Sodium [Moles/Vol] 144 mmol/L Normal 136-145 [facility] Comment on above: Performed By: #### C MP, TSH, T4, LIPID, FT3 #### [facility] [address] [address] [address] Dinah Rodriges Urea nitrogen [Mass/Vol] 18.0 mg/dL Normal 7.0-18.0 [facility] Comment on above: Performed By: #### C MP, TSH, T4, LIPID, FT3 #### [facility] [address] [place] [address] Dr. Dinah Rodriges Urea nitrogen/Creatinine [Mass ratio] 18.9 mg/mg Normal [facility] Comment on above: Performed By: #### C MP, TSH, T4, LIPID, FT3 #### [facility] [address] [place] [address] Dr. Dinah Rodriges T4on 01-18-2023 T4 [Mass/Vol] 9.30 ug/dL Normal 4.80-13.90 [facility] Comment on above: Performed By: #### C MP, TSH, T4, LIPID, FT3 #### [facility] [address] [place] [address] Dr. Dinah Rodriges TSHon 01-18-2023 TSH 0.872 uIU/mL Normal 0.358-3.740 [facility] Comment on above: Performed By: #### C MP, TSH, T4, LIPID, FT3 #### [facility] [address] [place] [address] Dr. Dinah Rodriges BNPon 01-20-2022 Natriuretic peptide B (Bld) [Mass/Vol] 464.0 pg/mL Normal <=1,800.0 [facility] Comment on above: Performed By: #### T SH, BNP, T7, LIPID, CMP ####[facility] [address] [address]Dr. Dinah Rodriges CBC AUTO DIFFon 01-20-2022 BASO # 0.0 103/ul Normal 0.0-0.1 [facility] Comment on above: Performed By: #### C BC #### [facility] [address] [place] [address] Dr. Dinah Rodriges Basophils/100 WBC (Bld) 0.4 % Normal 0.2-2.0 [facility] Comment on above: Performed By: #### C BC #### [facility] [address] [place] [address] Dr. Dinah Rodriges EO # 0.1 103/ul Normal 0.0-0.7 [facility] Comment on above: Performed By: #### C BC #### [facility] [address] [place] [address] Dr. Dinah Rodriges Eosinophils/100 WBC (Bld) 1.9 % Normal 0.9-7.0 [facility] Comment on above: Performed By: #### C BC #### [facility] [address] [place] [address] Dr. Dinah Rodriges Erythrocyte distribution width (RBC) [Ratio] 12.7 % Normal 11.0-15.0 [facility] Comment on above: Performed By: #### C BC #### [facility] [address] [place] [address] Dr. Dinah Rodriges Hematocrit (Bld) [Volume fraction] 35.0 % Critically low 36.0-48.0 [facility] Comment on above: Performed By: #### C BC #### [facility] [address] [place] [address] Dr. Dinah Rodriges Hemoglobin (Bld) [Mass/Vol] 11.5 g/dL Critically low 12.0-16.0 [facility] Comment on above: Performed By: #### C BC #### [facility] [address] [place] [address] Dr. Dinah Rodriges IG # 0.01 10e3/ul Normal 0.00-0.03 [facility] Comment on above: Performed By: #### C BC #### [facility] [address] [place] [address] Dr. Dinah Rodriges IG % 0.2 % Normal 0.0-0.5 [facility] Comment on above: Performed By: #### C BC #### [facility] [address] [place] [address] Dr. Dinah Rodriges LYMPH # 1.4 103/ul Normal 1.2-3.8 [facility] Comment on above: Performed By: #### C BC #### [facility] [address] [place] [address] Dr. Dinah Rodriges Lymphocytes/100 WBC (Bld) 26.9 % Normal 20.5-60.0 [facility] Comment on above: Performed By: #### C BC #### [facility] [address] [place] [address] Dr. Dinah Rodriges MANUAL DIFF REQ NO Normal [facility] Comment on above: Performed By: #### C BC #### [facility] [address] [place] [address] Dr. Dinah Rodriges MCH (RBC) [Entitic mass] 33.0 pg Normal 26.7-34.0 [facility] Comment on above: Performed By: #### C BC #### [facility] [address] [place] [address] Dr. Dinah Rodriges MCHC (RBC) [Mass/Vol] 32.9 g/dL Normal 29.9-35.2 [facility] Comment on above: Performed By: #### C BC #### [facility] [address] [place] [address] Dr. Dinah Rodriges MCV (RBC) [Entitic vol] 100.3 fL Critically high 81.0-99.0 [facility] Comment on above: Performed By: #### C BC #### [facility] [address] [place] [address] Dr. Dinah Rodriges MONO # 0.4 103/ul Normal 0.3-0.8 [facility] Comment on above: Performed By: #### C BC #### [facility] [address] [place] [address] Dr. Dinah Rodriges Monocytes/100 WBC (Bld) 7.6 % Normal 1.7-12.0 [facility] Comment on above: Performed By: #### C BC #### [facility] [address] [place] [address] Dr. Dinah Rodriges NEUT # 3.3 103/ul Normal 1.4-6.5 [facility] Comment on above: Performed By: #### C BC #### [facility] [address] [address] [address] Dinah Rodriges Neutrophils/100 WBC (Bld) 63.0 % Normal 43.0-75.0 [facility] Comment on above: Performed By: #### C BC #### [facility] [address] [address] [address] Dinah Rodriges Platelet mean volume (Bld) [Entitic vol] 10.0 fL Normal 9.5-13.5 [facility] Comment on above: Performed By: #### C BC #### [facility] [address] [address] [address] Dinah Rodriges PLT 165 103/ul Normal 150-450 [facility] Comment on above: Performed By: #### C BC #### [facility] [address] [address] [address] Dinah Rodriges RBC 3.49 106/ul Critically low 4.20-5.40 [facility] Comment on above: Performed By: #### C BC #### [facility] [address] [address] [address] Dinah Rodriges WBC 5.3 103/ul Normal 4.0-11.0 [facility] Comment on above: Performed By: #### C BC #### [facility] [address] [address] [address] Dinah Rodriges FREE THYROXINE INDEX T7on FTI 3.37 Normal 1.30-4.50 [facility] Comment on above: Performed By: #### T SH, BNP, T7, LIPID, CMP ####[facility] [address] [id number]. Dinah Rodriges T3U 34.0 % Normal 30.0-39.0 [facility] Comment on above: Performed By: #### T SH, BNP, T7, LIPID, CMP ####[facility] [address] [id number]. Dinah Rodriges T4 [Mass/Vol] 9.90 ug/dL Normal 4.80-13.90 [facility] Comment on above: Performed By: #### T SH, BNP, T7, LIPID, CMP ####[facility] [address] [address]Dr. Dinah Rodriges GLYCOHEMOGLOBIN A1Con 2021 ADA RECOMMENDATION SEE BELOW Normal [facility] Comment on above: Result Comment: ADA RECOMMENDED LIMIT 4.0 - 6.0 ADA THERAPEUTIC TARGET < 7.0 ACTION SUGGESTED > 7.0 Performed By: #### A 1C ####[facility] [address] [place], [place] [address]Dr. Dinah Rodriges Glucose [Mass/Vol] 103 mg/dL Normal [facility] Comment on above: Performed By: #### A 1C ####[facility] [address] [place], [place] [address]Dr. Dinah Rodriges HbA1c (Bld) [Mass fraction] 5.2 % Normal 4.5-6.2 [facility] Comment on above: Performed By: #### A 1C ####[facility] [address] [place], [place] [address]Dr. Dinah Rodriges IRONon 01-20-2022 Iron [Mass/Vol] 79.0 ug/dL Normal 50.0-170.0 [facility] Comment on above: Performed By: #### I KINZA ####[facility] [address] [place], [place] [address]Dr. Dinah Rodriges LIPID PROFILEon 01-20-2022 CHOL-HDL RATIO NORM SEE BELOW Normal [facility] Comment on above: Result Comment: 3.3 - 4.4 LOW RISK 4.4 - 7.1 AVERAGE RISK 7.1 - 11.0 MODERATE RISK >11.0 HIGH RISK Performed By: #### T SH, BNP, T7, LIPID, CMP ####[facility] [address] [address]Dr. Dinah Rodriges Cholesterol [Mass/Vol] 153 mg/dL Normal <=200 [facility] Comment on above: Performed By: #### T SH, BNP, T7, LIPID, CMP ####[facility] [address] [id number]. Dinah Rodriges Cholesterol in HDL [Mass/Vol] 54 mg/dL Normal 40-60 [facility] Comment on above: Performed By: #### T SH, BNP, T7, LIPID, CMP ####[facility] [address] [id number]. Dinah Rodriges Cholesterol in LDL [Mass/Vol] 78.8 mg/dL Normal [facility] Comment on above: Performed By: #### T SH, BNP, T7, LIPID, CMP ####[facility] [address] [id number]. Dinah Rodriges Cholesterol.total/Cho lesterol in HDL [Mass ratio] 2.8 {ratio} Normal [facility] Comment on above: Performed By: #### T SH, BNP, T7, LIPID, CMP ####[facility] [address] [address]Dr. Dinah Rodriges HDL NORMAL > or = 60 mg/dl - LO W CARDIOVASCULAR RISK <40 mg/dl - HIGH CARDIOVASCULAR RISK Normal [facility] Comment on above: Performed By: #### T SH, BNP, T7, LIPID, CMP ####[facility] [address] [address]Dr. Dinah Rodriges LDL CALC NORMAL SEE BELOW Normal [facility] Comment on above: Result Comment: <100 mg/dl OPTIMAL 100 - 129 mg/dl NEAR OR ABOVE OPTIMAL 130 - 159 mg/dl BORDERLINE HIGH 160 - 189 mg/dl HIGH >190 mg/dl VERY HIGH Performed By: #### T SH, BNP, T7, LIPID, CMP ####[facility] [address] [id number]. Dinah Rodriges Triglyceride [Mass/Vol] 101 mg/dL Normal <=150 [facility] Comment on above: Performed By: #### T SH, BNP, T7, LIPID, CMP ####[facility] [address] [id number]. Dinah Rodriges VLDL CALC 20.2 mg/dL Normal [facility] Comment on above: Performed By: #### T SH, BNP, T7, LIPID, CMP ####[facility] [address] [id number]. Dinah Rodriges MG MAMM SCREEN 3D TENZIN CADon 01-20-2022 MG MAMM SCREEN 3D TENZIN CAD Patient: NEREIDA AGOSTO Exam Date: 01/20/2022 : 1940 Gender:F Ordering : DR JACINTO SERVIN . Admission #: [id number] Family : Order #: [id number] CLICK HERE TO VIEW EXAM RADIOLOGY REPORT [...] Treatments None Family Cancers None LOCATION: [facility] BREAST COMPOSITION: Scattered areas fibroglandular [...] Monzon MD on 01/20/2022 at 11:33 Normal [facility] PROF 14(COMP METB)on 022 Albumin [Mass/Vol] 3.3 g/dL Critically low 3.4-5.0 Th e [facility] Comment on above: Performed By: #### T SH, BNP, T7, LIPID, CMP ####[facility] [address] [address]DrSimran Rodriges Albumin/Globulin [Mass ratio] 1.0 {ratio} Normal [facility] Comment on above: Performed By: #### T SH, BNP, T7, LIPID, CMP ####[facility] [address] [address]DrSimran Rodriges ALP [Catalytic activity/Vol] 69 U/L Normal 46-116 [facility] Comment on above: Performed By: #### T SH, BNP, T7, LIPID, CMP ####[facility] [address] [address]Dr. Dinah Rodriges ALT [Catalytic activity/Vol] 6 U/L Critically low 14-59 [facility] Comment on above: Performed By: #### T SH, BNP, T7, LIPID, CMP ####[facility] [address] [place], [place] [address]Dr. Dinah Rodriges Anion gap [Moles/Vol] 8.7 mmol/L Normal [facility] Comment on above: Performed By: #### T SH, BNP, T7, LIPID, CMP ####[facility] [address] [place], [place] [address]Dr. Dinah Rodriges AST [Catalytic activity/Vol] 12 U/L Critically low 15-37 [facility] Comment on above: Performed By: #### T SH, BNP, T7, LIPID, CMP ####[facility] [address] [place], [place] [address]Dr. Dinah Rodriges Bilirubin [Mass/Vol] 0.3 mg/dL Normal 0.2-1.0 [facility] Comment on above: Performed By: #### T SH, BNP, T7, LIPID, CMP ####[facility] [address] [place], [place] [address]Dr. Dinah Rodriges Calcium [Mass/Vol] 9.3 mg/dL Normal 8.5-10.1 [facility] Comment on above: Performed By: #### T SH, BNP, T7, LIPID, CMP ####[facility] [address] [place], [place] [address]Dr. Dinah Rodriges Chloride [Moles/Vol] 104 mmol/L Normal 98-107 [facility] Comment on above: Performed By: #### T SH, BNP, T7, LIPID, CMP ####[facility] [address] [place], [place] [address]Dr. Dinah Rodriges CO2 [Moles/Vol] 33.2 mmol/L Critically high 21.0-32.0 [facility] Comment on above: Performed By: #### T SH, BNP, T7, LIPID, CMP ####[facility] [address] [address]Dr. Dinah Rodriges Creatinine [Mass/Vol] 1.11 mg/dL Critically high 0.55-1.02 [facility] Comment on above: Performed By: #### T SH, BNP, T7, LIPID, CMP ####[facility] [address] [place], [place] [address]Dr. Dinah Rodriges EGFR-AF CITIZEN [place] 57 mL/min/1.73m2 Critically low >=60 [facility] Comment on above: Performed By: #### T SH, BNP, T7, LIPID, CMP ####[facility] [address] [place], [place] [address]Dr. Dinah Rodriges EGFR-NON AF CITIZEN OF [place] 47 mL/min/1.73m2 Critically low >=60 [facility] Comment on above: Performed By: #### T SH, BNP, T7, LIPID, CMP ####[facility] [address] [place], [place] [address]Dr. Lizsonia Rodriges Globulin (S) [Mass/Vol] 3.4 g/dL Normal [facility] Comment on above: Performed By: #### T SH, BNP, T7, LIPID, CMP ####[facility] [address] [place], [place] [address]Dr. Dinah Rodriges Glucose [Mass/Vol] 84 mg/dL Normal 74-106 [facility] Comment on above: Performed By: #### T SH, BNP, T7, LIPID, CMP ####[facility] [address] [place], [place] [address]Dr. Dinah Rodriges Potassium [Moles/Vol] 4.9 mmol/L Normal 3.5-5.1 [facility] Comment on above: Performed By: #### T SH, BNP, T7, LIPID, CMP ####[facility] [address] [address]Dr. Dinah Rodriges Protein [Mass/Vol] 6.7 g/dL Normal 6.4-8.2 [facility] Comment on above: Performed By: #### T SH, BNP, T7, LIPID, CMP ####[facility] [address] [place] [address]Dr. Dinah Rodriges Sodium [Moles/Vol] 141 mmol/L Normal 136-145 [facility] Comment on above: Performed By: #### T SH, BNP, T7, LIPID, CMP ####[facility] [address] [address]Dr. Dinah Rodriges Urea nitrogen [Mass/Vol] 18.0 mg/dL Normal 7.0-18.0 [facility] Comment on above: Performed By: #### T SH, BNP, T7, LIPID, CMP ####[facility] [id number] [place], [place] [address]Dr. Dinah Rodriges Urea nitrogen/Creatinine [Mass ratio] 16.2 mg/mg Normal [facility] Comment on above: Performed By: #### T SH, BNP, T7, LIPID, CMP ####[facility] [address] [place] [address]Dr. Dinah Rodriges TSHon 01-20-2022 TSH 1.061 uIU/mL Normal 0.358-3.740 [facility] Comment on above: Performed By: #### T SH, BNP, T7, LIPID, CMP ####[facility] [address] [place] [address]Dr. Dinah Rodriges TSH RANGE SEE BELOW Normal [facility] Comment on above: Result Comment: <0.3 4 UIU/ml HYPERTHYROID 0.34-5.60 UIU/ml EUTHYROID >5.60 UIU/ml HYPOTHYROID Performed By: #### T SH, BNP, T7, LIPID, CMP ####[facility] [address] [place], [place] [address]Dr. Dinah Rodriges XR DEXA BONE DENSITYon 01-20 [...] DUDLEY RYDER Date: 2022-01-20 11:30 Normal [facility] Cardiovascular Lab Reporton 12-23-2018 Cardiovascular Lab Report [facility] MR #: [id number] Department of Physician: Martha Seymour M.D. Division of Service Date: 12/23/2018 Cardiology Birthdate: 1940 Adult Cardiovascular Room #: [place] [address] Cardiovascular Laboratory Report PROCEDURE: Transesophageal echocardiogram and cardioversion. INDICATION: Atrial fibrillation. FELLOW: Neto Doty MD PROCEDURE IN DETAIL: An informed consent was obtained from the patient after explaining the indication, risks and benefits, and alternatives. The patient understood and agreed and signed the consent form. The patient was brought to the shift lab technician and transesophageal echocardiogram was performed [...] will follow up with me in the [facility] in 2-4 weeks Electronically Signed by: Goldie Waldrop M.D. 01/05/2019 08:36 A Goldie Waldrop M.D. I was present for the entire procedure. Date Dict: 12/23/2018/03:28 P/Neto Doty MD Date Trans: 12/23/2018 04:19 P/beth [id number] cc: Jacinto Servin M.D. [address] [facility] [address] [place] [facility] Cardiovascular Lab Reporton 12-16-2018 Cardiovascular Lab Report [facility] Patient Name: [facility] Nereida Rubin MR #: [id number] Department of Physician: Martha Ken M.D. Division of Service Date: 12/15/2018 Cardiology Birthdate: 1940 Adult Cardiovascular Room #: [id number] [place] [address] Cardiovascular Laboratory Report CLINICAL PRESENTATION: The patient is a 78-year-old female with past medical history significant for hypertension. She was admitted to [facility] with worsening shortness of breath. She was diagnosed with acute congestive heart failure and atrial fibrillation with a rapid ventricular rate. She was evaluated by my colleague, Dr. Lee, [place] [facility]. EKG showed ST elevations in the anterolateral leads and she was transferred urgently to the [facility] due to possible acute myocardial infarction. FINAL [...] ultrasound guidance and micropuncture access technique, a 6-Czech sheath placed in the right common femoral [...] Cano M.D. Date Trans: 12/16/2018 06:03 Denis/beth [id number] cc: Jacinto Servin M.D. [place] [address] [facility] [address] Peter Lee M.D. [facility] [place] [address] Normal [facility] BASIC METABOLIC PANELon 12-05 Calcium [Mass/Vol] 9.3 mg/dL Normal 8.6-10.3 [facility] Comment on above: Order Comment: No: D o not add to previous draw Performed By: #### 4 6013, 83632, 23546, 24471, 91861 #### [facility] [address] [facility] [place] [address], [facility] Chloride [Moles/Vol] 102 mmol/L Normal 98-107 [facility] Comment on above: Order Comment: No: D o not add to previous draw Performed By: #### 4 6413, 15096, 93958, 44962, 34273 #### [facility] [address] [place] [address], [place] CO2 [Moles/Vol] 27 mmol/L Normal 21-31 The [facility] Comment on above: Order Comment: No: D o not add to previous draw Performed By: #### 4 6413, 28496, 42730, 80349, 76959 #### [facility] [address] [place] [address], [place] Creatinine [Mass/Vol] 0.91 mg/dL Normal 0.60-1.20 [facility] Comment on above: Order Comment: No: D o not add to previous draw Performed By: #### 4 6413, 86552, 58477, 05625, 22144 #### [facility] [address] [place] [address], [place] GFR/1.73 sq M predicted among blacks MDRD (S/P/Bld) [Vol rate/Area] mL/min/{1.73_m2} Normal >60 [facility] Comment on above: Order Comment: No: D o not add to previous draw Result Comment: Calc ulation may not be valid for patients over 70 years Performed By: #### 4 6413, 09710, 35468, 49707, 12283 #### [facility] [address] [place] [address], [place] GFR/1.73 sq M predicted among non-blacks MDRD (S/P/Bld) [Vol rate/Area] mL/min/{1.73_m2} Normal >60 [facility] Comment on above: Order Comment: No: D o not add to previous draw Result Comment: Calc ulation may not be valid for patients over 70 years Performed By: #### 4 6413, 36220, 88691, 92229, 27275 #### [facility] [address] [place] [address], [place] Glucose [Mass/Vol] 130 mg/dL High 70-100 [facility] Comment on above: Order Comment: No: D o not add to previous draw Performed By: #### 4 6413, 53864, 00617, 31701, 37028 #### [facility] [address] [place] [address], [facility] Potassium [Moles/Vol] 3.5 mmol/L Normal 3.5-5.1 [facility] Comment on above: Order Comment: No: D o not add to previous draw Performed By: #### 4 6413, 61273, 66860, 21138, 81996 #### [facility] [address] [place] [id number], [facility] Sodium [Moles/Vol] 140 mmol/L Normal 136-145 [facility] Comment on above: Order Comment: No: D o not add to previous draw Performed By: #### 4 6413, 68533, 30835, 18080, 47635 #### [facility] [address] [place] [address], [facility] Urea nitrogen [Mass/Vol] 19 mg/dL Normal 7-25 [facility] Comment on above: Order Comment: No: D o not add to previous draw Performed By: #### 4 6413, 75671, 80259, 81378, 52862 #### [facility] [address] [place] [id number], [facility] BNP (B-TYPE NATRIURETIC PEPT CORI)on 12-15-2018 Natriuretic peptide B (Bld) [Mass/Vol] 369 pg/mL High 0-100 [facility] Comment on above: Order Comment: No: D o not add to previous draw Result Comment: Give n the appropriate clinical setting a BNP result of >100 pg/mL indicates congestive heart failure. Performed By: #### 8 5123, 91872 #### [facility] [address] [place] [id number], [facility] CBC COMPLETE BLOOD COUNTon 0 12-15-2018 Erythrocyte distribution width (RBC) [Ratio] 12.9 % Normal 11.5-15.0 [facility] Comment on above: Order Comment: No: D o not add to previous draw Performed By: #### 5 0608 #### [facility] [address] [place] [address], [facility] Hematocrit (Bld) [Volume fraction] 39.0 % Normal 36.0-45.0 [facility] Comment on above: Order Comment: No: D o not add to previous draw Performed By: #### 5 0608 #### [facility] [address] [place] [address], [facility] Hemoglobin (Bld) [Mass/Vol] 12.6 g/dL Normal 12.0-15.0 [facility] Comment on above: Order Comment: No: D o not add to previous draw Performed By: #### 5 0608 #### [facility] [address] [place] [id number], [facility] MCH (RBC) [Entitic mass] 31.6 pg Normal 27.0-33.0 [facility] Comment on above: Order Comment: No: D o not add to previous draw Performed By: #### 5 0608 #### [facility] [address] [place] [id number], [facility] MCHC (RBC) [Mass/Vol] 32.3 g/dL Normal 32.0-35.0 [facility] Comment on above: Order Comment: No: D o not add to previous draw Performed By: #### 5 0608 #### [facility] [address] [place] [address], [place] MCV (RBC) [Entitic vol] 97.7 fL Normal 82.0-98.0 [facility] Comment on above: Order Comment: No: D o not add to previous draw Performed By: #### 5 0608 #### [facility] [address] [place] [id number], [place] Nucleated RBC/100 WBC (Bld) [Ratio] 0 % Normal 0-0 [facility] Comment on above: Order Comment: No: D o not add to previous draw Performed By: #### 5 0608 #### [facility] [address] [place] [address], [place] PLAT CNT 252 10*3/uL Normal 150-400 The [facility] Comment on above: Order Comment: No: D o not add to previous draw Performed By: #### 5 0608 #### [facility] [address] [place] [address], [facility] RBC (Bld) [#/Vol] 3.99 10*6/uL Normal 3.80-5.00 The [facility] Comment on above: Order Comment: No: D o not add to previous draw Performed By: #### 5 0608 #### [facility] [address] [place] [address], [facility] WBC (Bld) [#/Vol] 8.04 10*3/uL Normal 4.00-10.60 [facility] Comment on above: Order Comment: No: D o not add to previous draw Performed By: #### 5 0608 #### [facility] [address] [place] [address], [facility] HEMOGLOBIN A1Con 12-15-2018 HbA1c (Bld) [Mass fraction] 108 mg/dL Normal 70-126 [facility] Comment on above: Order Comment: No: D o not add to previous draw Performed By: #### 8 5123, 90281 #### [facility] [address] [place] [address], [facility] HbA1c (Bld) [Mass fraction] 5.4 % Normal 4.0-6.0 [facility] Comment on above: Order Comment: No: D o not add to previous draw Performed By: #### 8 5123, 14955 #### [facility] [address] [place] [address], [facility] LIPID PROFILEon 12-15-2018 Cholesterol [Mass/Vol] 138 mg/dL Normal 120-200 [facility] Comment on above: Order Comment: No: D o not add to previous draw Result Comment: CHOL ESTEROL REFERENCE RANGE: 20 YEARS AND OLDER CARDIOVASCULAR RISK Less than 200 mg/dl Low Risk 200 to 239 mg/dl Borderline Risk 240 mg/dl and greater High Risk Performed By: #### 4 6413, 43357, 19575, 54014, 85778 #### [facility] [address] [place] [address], [facility] Cholesterol in HDL [Mass/Vol] 36 mg/dL Normal 23-92 [facility] Comment on above: Order Comment: No: D o not add to previous draw Result Comment: Slig ht variation in normal range could be due to gender and/or age. HDL CHOLESTEROL REFERENCE RANGE: 20 years and older Cardiovascular Risk > or =60 mg/dL Desirable 40 TO 59 mg/dL Low Risk <40 mg/dL High Risk Performed By: #### 4 6413, 16997, 12674, 86384, 47274 #### [facility] [address] [place] [address], [facility] Cholesterol in LDL [Mass/Vol] 81 mg/dL Normal 0-130 [facility] Comment on above: Order Comment: No: D o not add to previous draw Result Comment: LDL IS A CALCULATION LDL IS ONLY VALID IF THE TRIG IS LESS THAN 400. Performed By: #### 4 6413, 34909, 21349, 09722, 00330 #### [facility] [address] [place] [address], [place] Cholesterol.total/Cho lesterol in HDL [Mass ratio] 3.8 {ratio} Normal .0-4.5 [facility] Comment on above: Order Comment: No: D o not add to previous draw Performed By: #### 4 6413, 48970, 54595, 66633, 56607 #### [facility] [address] [place] [address], [place] NON-HDL CHOLESTEROL 102 mg/dL Normal [facility] Comment on above: Order Comment: No: D o not add to previous draw Performed By: #### 4 6413, 23355, 53269, 09256, 55295 #### [facility] [address] [place] [address], [facility] Triglyceride [Mass/Vol] 106 mg/dL Normal 40-149 [facility] Comment on above: Order Comment: No: D o not add to previous draw Result Comment: TRIG LYCERIDE REFERENCE RANGE: 20 YEARS AND OLDER CARDIOVASCULAR RISK LESS THAN 150 mg/dl LOW RISK 150 TO 199 mg/dl BORDERLINE RISK 200 mg/dl AND GREATER HIGH RISK Performed By: #### 4 6413, 60608, 91253, 25075, 14709 #### [facility] [address] [place] [address], [facility] VLDL CHOL 21 mg/dL Normal 0-40 [facility] Comment on above: Order Comment: No: D o not add to previous draw Performed By: #### 4 6413, 61614, 18280, 07938, 74866 #### [facility] [address] [place] [address], [facility] MAGNESIUM BLOODon 12-15-2018 Magnesium [Mass/Vol] 1.9 mg/dL Normal 1.9-2.7 [facility] Comment on above: Order Comment: No: D o not add to previous draw Performed By: #### 4 6413, 55746, 41053, 73979, 54542 #### [facility] [address] [place] [address], [facility] PHOSPHORUS BLOODon 9 Phosphate [Mass/Vol] 4.5 mg/dL Normal 2.5-5.0 [facility] Comment on above: Order Comment: combi henry request Performed By: #### 4 6413, 11022, 12790, 87022, 27879 #### [facility] [address] [place] [address], [facility] PORTABLE CHEST 1 VIEWon 12-05 PORTABLE CHEST 1 VIEW [facility] Department of Radiology [address] [place] [address] Patient Name: NEREIDA AGOSTO : 1940 Sex: F Age: Race: White Pt. Location: [id number] Patient Status: I Ordered Date: 12/15/2018 2:10:00 [...] failure Electronically signed by:Bharti Bazan. Transcribed by: [email or web address], User Resident: Electronically Signed by: BHARTI BAZAN @ 12/15/2018 03:50 PM Normal [facility] Comment on above: Order Comment: R/O C HF TSH3on 12-15-2018 TSH 3RD GENERATION 0.86 uIU/mL Normal 0.34-5.60 The [facility] Comment on above: Performed By: #### 4 6413, 60131, 14002, 35073, 24621 #### [facility] [address] Vital Signs Date Time Vital Sign Value Performing Clinician Facility 05-02-2025 13:04-0400 Body mass index (BMI) [Ratio] 31.96 kg/m2 Meera JONES Work Phone: [facility] 05-02-2025 13:04-0400 Body weight 71.78 kg Meera JONES Work Phone: [facility] 05-02-2025 13:04-0400 Diastolic blood pressure 72 mm[Hg] Meera JONES Work Phone: [facility] 05-02-2025 13:04-0400 Systolic blood pressure 110 mm[Hg] Meera JONES Work Phone: [facility] 09-28-2024 08:58-0500 Blood Pressure Location Mohjae Roseli [facility] 09-28-2024 08:58-0500 Diastolic blood pressure 87 mm[Hg] Harmony Roseli [facility] 09-28-2024 08:58-0500 Heart rate 67 /min Mohamad Mouchli [facility] 09-28-2024 08:58-0500 Systolic blood pressure 128 mm[Hg] Mohamad Mouchli [facility] 09-13-2024 12:40-0500 Diastolic blood pressure 80 mm[Hg] Mohamad Mouchli [facility] 09-13-2024 12:40-0500 Heart rate 80 /min Mohamad Roseli [facility] 09-13-2024 12:40-0500 Respiratory rate 13 /min Mohamad Mouchli [facility] 09-13-2024 12:40-0500 SaO2% (BldA) [Mass fraction] 95 % Mohamad Mouchli [facility] Comment on above: Result Comment: patient had cold fingers , waveform was suboptimal, no SOB or other signs of respiratory difficulty 09-13-2024 12:40-0500 Systolic blood pressure 116 mm[Hg] Mohamad Mouchli [facility] 09-13-2024 12:30-0500 Diastolic blood pressure 69 mm[Hg] Mohamad Mouchli [facility] 09-13-2024 12:30-0500 Heart rate 80 /min Mohamad Mouchli [facility] 09-13-2024 12:30-0500 Respiratory rate 22 /min Mohamad Mouchli [facility] 09-13-2024 12:30-0500 SaO2% (BldA) [Mass fraction] 96 % Mohamad Mouchli [facility] 09-13-2024 12:30-0500 Systolic blood pressure 120 mm[Hg] Mohamad Mouchli [facility] 09-13-2024 12:15-0500 Diastolic blood pressure 48 mm[Hg] Mohamad Mouchli [facility] 09-13-2024 12:15-0500 Heart rate 81 /min Mohamad Mouchli [facility] 09-13-2024 12:15-0500 Respiratory rate 22 /min Mohamad Mouchli [facility] 09-13-2024 12:15-0500 SaO2% (BldA) [Mass fraction] 97 % Mohamad Mouchli [facility] 09-13-2024 12:15-0500 Systolic blood pressure 101 mm[Hg] Mohamad Mouchli [facility] 09-13-2024 11:43-0500 Body temperature 97.16 [degF] Mohamad Mouchli [facility] 09-13-2024 11:40-0500 Respiratory rate 18 /min Mohamad Mouchli [facility] 09-13-2024 11:35-0500 Respiratory rate 18 /min Mohamad Mouchli [facility] 09-13-2024 11:30-0500 Respiratory rate 18 /min Mohamad Mouchli [facility] 09-13-2024 09:33-0500 Blood Pressure Location Mohamad Mouchli [facility] 09-13-2024 09:33-0500 Body temperature 96.8 [degF] Mohamad Mouchli [facility] 06-08-2024 09:46-0400 Blood Pressure Location Mohamad Mouchli [facility] 06-08-2024 09:46-0400 Diastolic blood pressure 73 mm[Hg] Mohamad Mouchli [facility] 06-08-2024 09:46-0400 Heart rate 64 /min Mohamad Mouchli [facility] 06-08-2024 09:46-0400 Respiratory rate 16 /min Mohamad Mouchli [facility] 06-08-2024 09:46-0400 Systolic blood pressure 111 mm[Hg] Harmony Bettencourt [facility] 03-15-2024 13:44-0400 Blood Pressure Location Rashi NILL [facility] [place] 03-15-2024 13:44-0400 Diastolic blood pressure 80 mm[Hg] Rashi NILL [facility] [place] 03-15-2024 13:44-0400 Heart rate 76 /min Rashi NILL [facility] [place] 03-15-2024 13:44-0400 Respiratory rate 16 /min Rashi NILL [facility] [place] 03-15-2024 13:44-0400 Systolic blood pressure 118 mm[Hg] Rashi NILL [facility] [place] 02-02-2023 14:45-0400 Blood Pressure Location Rashi NILL [facility] [place] 02-02-2023 14:45-0400 Diastolic blood pressure 76 mm[Hg] Rashi NILL [facility] [place] 02-02-2023 14:45-0400 Heart rate 74 /min Rashi NILL [facility] [place] 02-02-2023 14:45-0400 Respiratory rate 16 /min Rashi NILL [facility] [place] 02-02-2023 14:45-0400 Systolic blood pressure 126 mm[Hg] Rashi NILL [facility] [place] Encounters Encounter Date Encounter Type Care Provider Facility Start: 10-01-2025 ambulatory Harmony Bettencourt Factian lity:[facility] Start: 05-02-2025 End: 05-02-2025 Bamboo flowsheet Meera JONES Work Phone: [facility] Start: 05-02-2025 End: 05-02-2025 Bamboo flowsheet Meera JONES Work Phone: [facility] Start: 05-02-2025 End: 05-02-2025 Patient encounter procedure Meera JONES Work Phone: [facility] Start: 05-02-2025 End: 05-02-2025 Periodic preventive med est patient 65yrs& older Meera JONES Work Phone: [facility] Comment on above: Tinea (Primary Dx); Well woman exam with routine gynecological exam; Encounter for screening mammogram for malignant neoplasm of breast; Vaginal dryness, menopausal Start: 05-02-2025 End: 05-02-2025 ambulatory MEERA AGUAYO Not Available Start: 02-15-2025 End: 02-15-2025 ambulatory [facility] Start: 11-15-2024 End: 11-15-2024 Clinisync Result Encounter Meera JONES Work Phone: [facility] Unsolicited Start: 11-15-2024 End: 11-15-2024 Clinisync Result Encounter Meera JONES Work Phone: [facility] Unsolicited Start: 09-28-2024 End: 09-28-2024 ambulatory Harmony Bettencourt Facility:[facility] Start: 09-28-2024 End: 09-28-2024 Patient encounter procedure Harmony Bettencourt [facility] Start: 09-13-2024 End: 09-13-2024 ambulatory Harmony Bettencourt Facility:[facility] Start: 09-13-2024 End: 09-13-2024 Patient encounter procedure Harmony Bettencourt [facility] Start: 06-08-2024 ambulatory Harmony Bettencourt Facilit y:[facility] Start: 06-08-2024 End: 06-08-2024 ambulatory Harmony Bettencourt Facility:[facility] Start: 06-08-2024 End: 06-08-2024 Patient encounter procedure Sarbjitsugey DenisSimran Bettencourt [facility] Start: 05-10-2024 End: 05-10-2024 ambulatory Rashi R NILL Facility: [place] Start: 05-10-2024 End: 05-10-2024 Patient encounter procedure Rashi R NILL [facility] [place] Start: 04-26-2024 End: 04-26-2024 ambulatory Rashi Swan [facility] Work Phone: Start: 04-26-2024 End: 04-26-2024 Departed Referred MD Rashi Swan Work Phone: [facility] [place] [facility] Start: 04-26-2024 End: 04-26-2024 ambulatory Rashi R JAXL Facility:[id number] Start: 03-15-2024 End: 03-15-2024 ambulatory Rashi R NILL Facility: [facility] Start: 03-15-2024 End: 03-15-2024 Patient encounter procedure Rashi R NILL [facility] [place] Start: 03-05-2023 End: 03-05-2023 Patient encounter procedure Rashi R NILL [facility] Start: 02-02-2023 End: 02-02-2023 Patient encounter procedure Rashi R NILL [facility] [place] Start: 01-21-[address] JACINTO SERVIN . Facili ty:[facility] Start: 01-19-2023 End: 01-19-[address] JACINTO SERVIN . Facility: Start: 01-18-2023 End: 01-19-[address] JACINTO SERVIN . Facility: Start: 01-20-2022 End: 01-21-[address] JACINTO SERVIN . Facility: Start: 12-23-2018 End: 12-24-2018 Patient encounter procedure GOLDIE WALDROP Facility:[facility] Start: 12-15-2018 End: 12-16-2018 Evaluation and management of inpatient PETER LEE Facility:[facility] Procedures Date Procedure Procedure Detail Performing Clinician Start: 11-15-2024 [facility] CALCIUM Meera JONES Work Phone: Start: 11-15-2024 [facility] CREATININE Meera Mix Work Phone: Start: 09-13-2024 Colonoscopy Heamasugey maravilla Start: 04-26-2024 Colonoscopy Rashi ROJAS LL Start: 02-24-2023 Colonoscopy Rashi NI LL Start: 12-15-2018 FLUOROSCOPY OF MULTI PLE CORONARY ARTERIES USING OTH CONTRAST SILVIANO CANO Start: 12-15-2018 MEASURE CARDIAC SAMP L \T\ PRESSURE, BILATERAL, PERC SILVIANO CANO Start: 12-15-2018 MEASUREMENT OF ARTER IAL FLOW, PULMONARY, PERC APPROACH SILVIANOCHAN CANO Cardiac fluoroscopy Rashi SWAN Closed fracture of h ip (disorder) Rashi SWAN Ligation of fallopian tube M emelina SWAN Plan of Treatment Date Care Activity Detail Author Start: 05-07-2025 Influenza vaccination Influenz a Vaccine (#1) M-DISC Start: 05-02-2025 End: 07-02-2026 MG Breast - bilateral Screening Bilateral screening mammogram Imaging Routine Encounter for screening mammogram for malignant neoplasm of breast Expected: 05/02/2025, Expires: 07/02/2026 [facility] Work Phone: Comment on above: Expected: 05/02/2025 , Expires: 07/02/2026 Start: 05-02-2025 End: 05-02-2025 Patient encounter procedure 05/02/2025 1:00 PM EDT Procedure Visit [facility] [address] [address] Meera Aguayo PA [address] [place], [place] [id number] Arrived [facility] Comment on above: Arrived Start: 04-04-2025 End: 04-04-2025 Patient encounter procedure 04/04/2025 11:00 AM EDT Office Visit [facility] [address] [place] [address] Meera Aguayo PA [address] [place] [address] [facility] Start: 05-07-2024 Influenza vaccination Influenz a Vaccine (#1) [facility] Start: 04-26-2024 [facility] Immunizations Immunization Date Immunization Notes Care Provider Fa [facility] 07-21-2022 influenza virus vaccine, unspecified formulation Rashi SWAN [facility] 08-28-2021 SARS-CoV-2 (COVID-19 ) mRNA-1273 vaccine Rashi NILL [facility] [place] 11-14-2020 SARS-CoV-2 (COVID-19 ) mRNA-1273 vaccine Rashi NILL [facility] 10-18-2020 SARS-CoV-2 (COVID-19 ) mRNA-1273 vaccine Rashi NILL [facility] 07-11-2020 influenza virus vaccine, unspecified formulation Harmony Bettencourt [facility] 07-26-2017 pneumococcal conjuga te vaccine, 13 valent Mohamad Mouchli [facility] 06-29-2016 influenza, unspecifi ed formulation Mohamad Mouchli [facility] 06-29-2016 pneumococcal polysaccharide vaccine, 23 valent Mohamad Mouchli [facility] NEGATED: Highlighted row has not occurred!09-28-2024 influenza virus vaccine, unspecified formulation Mohamad Mouchli [facility] NEGATED: Highlighted row has not occurred!06-08-2024 influenza virus vaccine, unspecified formulation Mohamad Mouchli [facility] Payers Date Payer Category Payer Self-pay [id number] 2022 Worker's Compensation [id number] 2018 ([facility]) [id number] 2018 Medicare [id number] 2007 Medicare MEDICARE [id number] 1959 Department of [facility] ( and others) [id number] 1959 Medicare [id number] 1942 Unknown [id number] 2.16.840.1.294377.3.579. 2.647 1942 Unknown [id number] 2.16.840.1.129864.3.579. 2.647 1942 Unknown [id number] 2.16.840.1.132860.3.579. 2.593 1942 Unknown [id number] 2.16.840.1.984853.3.579. 2.593 1942 Unknown [id number] 2.16.840.1.330157.3.579. 2.593 1942 Unknown [id number] 2.16.840.1.957224.3.579. 2.593 1942 Unknown [id number] 2.16.840.1.258730.3.579. 2.727 1942 Unknown [id number] 2.16.840.1.225916.3.579. 2.727 1942 Unknown [id number] 2.16.840.1.091180.3.579. 2.727 1942 Unknown [id number] 2.16.840.1.755755.3.579. 2.727 1942 Unknown [id number] 2.16.840.1.542643.3.579. 2.727 1942 Unknown [id number] 2.16.840.1.862539.3.579. 2.727 1942 Unknown [id number] 2.16.840.1.236925.3.579. 2.727 1942 Unknown [id number] 2.16.840.1.249617.3.579. 2.1259 Department of [facility] ( and others) [id number] Unknown [id number] 2.16.840.1.317728.3.579. 2.531 Social History Date Type Detail Facility Start: 02-02-2023 End: 09-28-2024 Tobacco smoking status Ex-smoker (finding) [facility] Tobacco smoking status Never [facility] Sex Assigned At Female [facility] Start: 02-03-2020 Tobacco smoking status NHIS Never smoked tobacco (finding) [facility] Start: 1940 Sex Assigned At Female F [facility] Tobacco smoking status [facility] Tobacco smoking consumption unknown [facility] Start: 1940 Sex assigned at Not on file [facility] Medical Equipment Procedure Code Equipment Code Equipment Origin al Text Equipment Identifier Dates Orthopaedic bone screw, non-bioabsorbable, non-sterile [id number] FDA Start: 02-03-2020 Femur nail, sterile (1088 [id number] FDA Start: 02-03-2020 Spiral blade ()[id number] FDA Start: 02-03-2020 Unknown Unknown 09/13/24 Non Biological Unknown FDA Start: 09-13-2024 FDA Start: 09-13-2024 Unknown Unknown 09/13/24 Non Biological Unknown FDA Start: 09-13-2024 FDA Start: 09-13-2024 Functional Status Date Assessment Result Facility 09-28-2024 Functional Status N/A [facility] 09-13-2024 Functional Status N/A [facility] 06-08-2024 Functional Status N/A [facility] 03-15-2024 Functional Status N/A [facility] [place] 02-02-2023 Functional Status N/A [facility] 09-13-2024 to 05-02-2025 Lady Chappell, LAND DEVELOPMENT PROJECT MANAGER - 05/02/2025 1:00 PM EDT Note Date & Type Note Facility 05-02-2025 History of Present illness Narrative Reason for Appointment: Patient ID: Nereida Agosto is a 85 y.o. female who presents for Well Women Visit Patient presents today for Annual Exam. MEDICATIONS Current Outpatient Medications Medication Instructions carvedilol (Coreg) 6.25 MG tablet 1 tablet, Oral, 2 times daily cholecalciferol (VITAMIN D-3) 1,000 Units, Oral, Daily Eliquis 5 MG tablet 1 tablet, Oral, 2 times daily estradiol (Estrace) 0.1 MG/GM vaginal cream 2g vaginal daily for 2 weeks, then 2 times weekly following initial 2 weeks furosemide (LASIX) 20 mg, Oral, Once lisinopril 20 mg, Oral, Daily meclizine (ANTIVERT) 25 mg, Oral, Every morning nystatin (Mycostatin) 052557 UNIT/GM powder Topical, 3 times daily spironolactone (ALDACTONE) 12.5 mg, Oral, Daily RT Synthroid 50 mcg, Oral, Daily before breakfast ALLERGIES Allergies Allergen Reactions Alprazolam Unknown Sulfa Antibiotics Other, Unknown and Rash PROBLEMS Active Ambulatory Problems Diagnosis Date Noted Osteoporosis, 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 SURGICAL HISTORY Past Surgical History: Procedure Laterality Date COLONOSCOPY DILATION AND CURETTAGE OF UTERUS 07/23/2023 HIP FRACTURE SURGERY SHOULDER SURGERY TUBAL LIGATION REVIEW OF SYSTEMS Review of Systems: Review of Systems Constitutional: Negative. HENT: Negative. Eyes: Negative. Respiratory: Negative. Cardiovascular: Negative. Gastrointestinal: Negative. Genitourinary: Negative. Musculoskeletal: Negative. Skin: Negative. Tinea and itching under breast bilateral Neurological: Negative. All other systems reviewed and are negative. Hematological: Negative. Endocrine: Negative. Allergic/Immunologic: Negative. OBJECTIVE Objective: Physical Exam Constitutional: Appearance: Normal appearance. She is well-developed. Genitourinary: Vulva normal. Genitourinary Comments: Tinea under bilateral breast; Breasts: Breasts are soft. Right: Normal. Left: Normal. Cardiovascular: Rate and Rhythm: Normal rate and regular rhythm. Pulmonary: Effort: Pulmonary effort is normal. Breath sounds: Normal breath sounds. Abdominal: General: Bowel sounds are normal. There is no distension. Palpations: Abdomen is soft. Tenderness: There is no abdominal tenderness. There is no guarding or rebound. Musculoskeletal: General: No swelling. Normal range of motion. Right lower leg: No edema. Left lower leg: No edema. Neurological: Mental Status: She is alert and oriented to person, place, and time. Skin: General: Skin is warm and dry. Psychiatric: Mood and Affect: Mood normal. Behavior: Behavior normal. Vitals and nursing note reviewed. Exam conducted with a apartment leasing specialist present. Vitals: Estimated body mass index is 31.96 kg/m as calculated from the following: Height as of 08/05/23: 4' 11 . Weight as of this encounter: 158 lb 4 oz. BP: 110/72 No LMP recorded (lmp unknown). Patient is postmenopausal. ASSESSMENT & PLAN ICD-10-CM 1. Tinea B35.9 nystatin (Mycostatin) 837810 UNIT/GM powder 2. Well woman exam with routine gynecological exam Z01.419 estradiol (Estrace) 0.1 MG/GM vaginal cream 3. Encounter for screening mammogram for malignant neoplasm of breast Z12.31 Bilateral screening mammogram Bilateral screening mammogram estradiol (Estrace) 0.1 MG/GM vaginal cream 4. Vaginal dryness, menopausal N95.1 Annual Exam: Patient presents today for an annual exam. Patient states she is doing well and has no complaints. Pap was obtained without difficulty. Orders Placed This Encounter Procedures Bilateral screening mammogram Follow Up: Patient is to return in one year for annual unless needed otherwise. Documented by Lady Chappell NP on behalf of: Lady Chappell NP documented in this encounter [facility] 03-20-2025 Note Please let her know her lung function testing appears worse than previously that I have available for review. Please refer her to pulmonary for further evaluation. Thank you [facility] 02-15-2025 Note Cardiology [facility] Note SUBJECTIVE Chief Complaint Patient presents [...] Comments: No JVD (more content not included)... [facility] 02-15-2025 Note Patient is here toda y for a 1 year follow up. Patient states, she is losing her balance, fatigue, SOB,and BOOTH. Review of Systems Constitutional: Positive for malaise/fatigue. Cardiovascular: Positive for dyspnea on exertion. Respiratory: Positive for shortness of breath. Neurological: Positive for loss of balance. [facility] 09-17-2024 Note Progress Note-Physic ashley Patient: NEREIDA [...] list: All Problems Osteoporosis / SNOMED CT 252608540 / Confirmed Positive fecal occult blood test / SNOMED CT 21276149 / Confirmed Obesity due to excess calories / SNOMED CT 0771359415 / Confirmed LVH (left ventricular hypertrophy) / SNOMED CT 88452377 / Confirmed Left atrial enlargement / SNOMED CT 7536518960 / Confirmed Hypothyroidism / SNOMED CT 95061287 / Confirmed HTN (hypertension) / SNOMED CT 7879595779 / Confirmed Personal history of colonic polyps / SNOMED CT 5405351241 / Confirmed History of colon cancer / SNOMED CT 2410202283 / Confirmed Lower extremity edema / SNOMED CT 821415801 / Confirmed Congestive heart failure / SNOMED CT 78717568 / Confirmed Cardiomyopathy / SNOMED CT 254179797 / Confirmed Cardiomegaly / SNOMED CT 43996067 / Confirmed BMI 32.0-32.9,adult / SNOMED CT 321547014 / Confirmed A-fib / SNOMED CT 45219782 / Confirmed Aortic valve regurgitation / SNOMED CT 357909342 / Confirmed Tubulovillous adenoma of colon / SNOMED CT 1226939170 / Confirmed Histories Procedure history: Colonoscopy (455585239) on 04/26/2024 at 84 Years. Colonoscopy (305681996) on 02/24/2023 at 82 Years. Tubal ligation (334071575). Closed fracture of hip (748265985). Cardiac fluoroscopy (478931364). Social History Social & Psychosocial Habits Alcohol [...] adequate air exchange. Cardiovascular: Regular rhythm. Plan [place] [employer] Anesthesiologists (ASA) physical status classification: Class III. Anesthetic Preoperative Plan: Anesthesia General. [facility] Comment on above: Result Comment: Elec tronically Signed By: Koby Chaudhry DO, Jim Barrios\alma delia\Date and Time Signed: 09/17/24 21:40 EST 09-17-2024 [...] when meets criteria ( To home ). [facility] Comment on above: Result Comment: [...] hard liquor (44 mL). General instructions Take lrub-nfh-krvaylc and prescription medicines only as told by [...] provider. Document Revised: 12/11/2020 Document Reviewed: 12/11/2020 [employer] Patient Education 2023 [employer]. 09/13/2024 12:21:59 Hemorrhoids, Jgzt-aj-Hqov Hemorrhoids Hemorrhoids are swollen veins that may [...] Follow these instructions at home: Medicines Take ddey-kuv-obgurrr and prescription medicines only as told by [...] provider. Document Revised: 05/05/2023 Document Reviewed: 05/05/2023 [employer] Patient Education 2023 [employer]. Follow Up Care 06/08/2024 10:51:59 With:Rut AHMADI, SHANE Guerrero, [facility] Address: [address] [place] [address], [address] [place] [phone] Business (1) When: Unknown Comments:-Office to call for pathology results. Call for any problems. [phone] [facility] 09-13-2024 Note Patient Education - Text [...] these instructions at home: Medicines ??? Take oetx-rwv-obhszbv and prescription medicines only as told by [...] when you poop. (more content not included)... [facility] Evaluation + Plan note No data available for this section [facility] [place] Evaluation + Plan note Future Appointments Appointment Date:09/13/2024 11:00:00 AM Scheduled Provider: Location:[facility] Appointment Type:Surgery FT Appointment Date:09/27/2024 12:15:00 PM Scheduled Provider:Harmony Bettencourt MD Location:[facility] Appointment Type:[facility] Follow Up [facility] Evaluation + Plan note Future Appointments Appointment Date:09/28/2024 08:30:00 AM Scheduled Provider:Harmony Bettencourt MD Location:[facility] Appointment Type:[facility] Follow Up [facility] Evaluation + Plan note Future Appointments Appointment Date:10/01/2025 12:15:00 PM Scheduled Provider:Harmony Bettencourt MD Location:[facility] Appointment Type[facility] Follow Up [facility] Evaluation note No assessment inform ation available [facility] Work Phone: Evaluation note Diagnosis Tinea- Primary Dermatophytosis of unspecified site Well woman exam with routine gynecological exam Routine gynecological examination Encounter for screening mammogram for malignant neoplasm of breast Vaginal dryness, menopausal documented in this [facility] No data available for this section [facility] [place] Progress note No data available for this section [facility] [place] Summary Purpose Family History No Family History [...] 018 2:51pm Hospital Course Note MR#: [id number] [facility] Pt. Name: Nereida Agosto Admitted: 12/15/2018 [...] was sent to the ER. Apparently in [facility], the patient was found to have decompensated heart failure with new onset of atrial fibrillation. She was in rapid ventricular response. The patient was admitt (more content not included)... Additional Source Comments INFORMATION SOURCE (unrecogn ized section and content) DATE CREATED AUTHOR 04/29/2019 [facility] DATE CREATED AUTHOR AUTHOR'S ORGANIZ ATION 01/19/2023 [facility] DATE CREATED AUTHOR AUTHOR'S ORGANIZ ATION 05/04/2024 [facility] DATE CREATED AUTHOR AUTHOR'S ORGANIZ ATION 09/20/2024 [place] [employer] DATE CREATED AUTHOR AUTHOR'S ORGANIZ ATION 09/30/2024 [place] [facility] DATE CREATED AUTHOR AUTHOR'S ORGANIZ ATION 05/04/2025 [facility] DATE CREATED AUTHOR AUTHOR'S ORGANIZ ATION 05/21/2025 [facility] Patient Care team informatio n (unrecognized section and content) Team Status: Inactive Member Role Status Dates Rashi Swan MD FACS Attending Provider Active Start: April 26, 2024 End: April 26, 2024 Asbestos Cloth Inspector Relationship Specialty Start Date End Date Jacinto Servin MD [address] [place] [address] [phone] PCP - General Family Medicine 04/06/23 Asbestos Cloth Inspector Relationship Specialty Start Date End Date Jacinto Servin MD [address] [facility] [place] [address] [phone] PCP - General Family Medicine 04/06/23 Asbestos Cloth Inspector Relationship Specialty Start Date End Date Jacinto Servin MD [address] [facility] [place] [address] [phone] PCP - General Family Medicine 04/06/23 Goals (unrecognized section and content) Goals may be documented in a n alternate section Reason for Visit (unrecogniz ed section and content) Reason Comments Well Women Visit FOR RECORDS PERTAINING TO PATIENTS WHO ARE [...] BE BASED ON THE PRIMARY CLINICAL RECORDS. [facility]. provides no warranty or guarantee of the accuracy or completeness of information in this document.
--- NOTE | 2025-06-01 12:59 | CA_ITS ---
Patient Name: JOI DUNCAN MR#: [id number] : 1940 Exam Date: 06/01/2025 Ordering Doctor: KHANG HOPSON CNP ECHOCARDIOGRAM REPORT PROCEDURE: CA ECHO DOPPLER COMPLETE INDICATIONS: Palpitations, A fib, Shortness of breath COMPARISON: None. DESCRIPTION: COMPLETE ECHOCARDIOGRAM Real-time transthoracic echocardiography with 2D, M-mode, spectral and color flow Doppler performed. QUALITY: Technical quality was good. LEFT VENTRICLE: Normal chamber size. Mild concentric left ventricular hypertrophy. Global left ventricular systolic function is normal. LV EF: Visual estimation of left ventricular ejection fraction is 55-60%. DIASTOLIC: Not adequately assessed due to heart rhythm. ATRIAL SEPTUM: LEFT ATRIUM: Severe dilatation. RIGHT ATRIUM: Moderate dilatation. RIGHT VENTRICLE: Normal chamber size. Normal right ventricular systolic function. TRICUSPID VALVE: Normal mobility and thickness. No stenosis with trivial regurgitation. No evidence of pulmonary hypertension. RVSP 30 mmHg. MITRAL VALVE: Normal mobility and thickness. No evidence of mitral valve stenosis. Mild mitral regurgitation. AORTIC VALVE: Normal trileaflet appearance. No visible sclerosis. Normal leaflet mobility. No evidence of aortic valve stenosis. No aortic regurgitation. AORTIC ROOT: Normal diameter and appearance measuring 3.3 cm. The ascending aorta is normal in size measuring 3.6 cm. PULMONIC VALVE: Normal thickness and mobility. No stenosis. Trivial regurgitation. PERICARDIUM: No evidence of pericardial effusion. IVC: Collapses with inspiration. Normal size. PLEURA: CONCLUSION: 1. Mild concentric left ventricular hypertrophy with normal systolic function. Estimated LVEF is 55 to 60%. 2. Normal right ventricular size and systolic function. 3. Moderate to severe biatrial dilatation. 4. Mild mitral regurgitation. 5. Normal right-sided pressures. Adult Echocardiography Procedure Report Left Ventricle LVEDD (3.7 - 5.6 cm): 3.55 cm LVESD (2.2 - 4.0 cm): 2.32 cm LVIVS thickness (0.6 - 1.2 cm): 1.25 cm LVPW thickness (0.5 - 1.0 cm): 1.20 cm e': 0.11 m/s E - e': 6.90 LVOT Max Gradient: 1.82 mm[Hg] LVOT Area (cm2): 0.67 m/s Peak Velocity (LVOT): 0.67 m/s Mean Velocity (LVOT): 0.47 m/s LVOT Diameter 1.85 cm Left Ventricular Ejection Fraction: 55-60 % Left Atrium LA Volume Index (2D A2C): 49.53 ml/m2 Left Atrium Systolic Dimension: 4.41 cm Mitral Valve Mitral Valve E-Wave Peak Velocity: 0.76 m/s Right Ventricle RV Internal Diastolic Dimension: 2.51 cm, 2.84 cm Aorta AO Root Diam: 3.28 cm Ascending Ao Diam: 3.60 cm Aortic Valve AoV Area (Peak Will): 2.11 cm2, 2.11 cm2 AoV Area (VTI): 2.26 cm2, 2.26 cm2 Peak Velocity(Antegrade Flow): 0.86 m/s Peak Gradient(Antegrade Flow): 2.95 mm[Hg] Mean Velocity(Antegrade Flow): 0.60 m/s Mean Gradient(Antegrade Flow): 1.60 mm[Hg] Velocity Time Integral: 14.73 cm Tricuspid Valve Peak Velocity (Regurgitant Flow): 2.39 m/s, 2.62 m/s, 2.36 m/s Pulmonic Valve Peak Velocity: 0.70 m/s Peak Gradient: 2.02 mm[Hg], 1.86 mm[Hg] Right Atrium Right Atrium Systolic Pressure: 39.14 ml, 39.14 ml Dictated by: Giancarlo Nathan M.D. on 06/01/2025 at 16:49 Approved by: Giancarlo Nathan M.D. on 06/01/2025 at 16:51
== END 2025-06-01 12:37 | disposition home or self-care (01) ==
PROVIDERS: PCP Family Medicine; Visit Provider Nurse Practitioner Family
DX: R00.2 Palpitations (principal); I48.0 Paroxysmal atrial fibrillation; R06.02 Shortness of breath
CPT/HCPCS: 93306

== ENCOUNTER 2025-07-03 12:03 | Outpatient (OUT) | payer MEDICARE, OTHER, SELFPAY ==
--- OUTSIDE RECORDS SUMMARY | 2025-07-03 12:12 | XMS_ITS | Clinical Summary ---
Author Organization [facility] Address [address] [place] [address] Care Team Providers Care Ethical Hacker Name Role Phone Kole Servin MD Primary Care Provider Allergies Active AllergyReactionsCriticalityNoted VbczEfkkhqykZoblhtxaymInvmcee44/24/2024 Sulfa (Sulfonamide Antibiotics)05/28/2022 Medications MedicationSigDispense QuantityRefillsLast FilledStart DateEnd DateStatus apixaban (Eliquis) 5 mg tablet Take 1 tablet by mouth in the morning and at bedtime.Active carvedilol (Coreg) 12.5 mg tablet Take 1 tablet by mouth in the morning and at bedtime.06/02/2021ctive furosemide (Lasix) 20 mg tablet Take 1 tablet by mouth in the morning.Active levothyroxine (Synthroid, Levoxyl) 50 mcg tablet Take 1 tablet every day by oral route for 30 days.Active meclizine (Antivert) 25 mg tablet Take 25 mg by mouth if needed.Active cholecalciferol (Vitamin D-3) 25 MCG (1000 UT) capsule Take 1,000 Units by mouth in the morning.Active calcium 500 mg calcium (1,250 mg) tablet Take 1 tablet by mouth in the morning.Active potassium chloride CR (K-Tab) 20 mEq ER tablet Take 20 mEq by mouth in the morning.01/22/2023ctive lisinopril 20 mg tablet Indications:Essential hypertensionTAKE 1 TABLET IN THE MORNING 90 tablet ctive spironolactone (Aldactone) 25 mg tablet Indications:Heart failure with mid-range ejection fraction (CMS/HCC)TAKE ONE- HALF (1/2) TABLET IN THE MORNING 45 tablet ctive aspirin 81 mg EC tablet Take 81 mg by mouth 1 (one) time.03/15/2024ctive Active Problems ProblemNoted DateDiagnosed DateAcute xaibboqnhz90/24/2025t risk for falls 06/29/2025enign neoplastic ouhbhvu9306/29/20252682Rjahyccbngrzfo50/24/2025losed bimalleolar gzupwnyp59/24/2025losed fracture of qegdti6606/29/2025losed fracture of shaft of reiafjb9006/29/2025olon polyp06/29/2025OVID-191Diverticular disease of colon06/29/2025Impacted rfunqhq31/24/2025Late effect of fracture of lower zwmypgkqw46/24/2025Poor bnygtfl6506/29/2025Pre-op exam06/29/2025Unsteady gait06/29/20253222Onsamwwyfesm40/12/2025History of colon shveeo1002/15/2025History of colonic hgdwih4702/15/2025Obesity due to excess xirlgyhi45/12/2025losed fracture of left hipFracture of left ormppzf40 Intertrochanteric fracture of left femurOn anticoagulant iquihhw84ight knee painSinus bradycardia by rdazwfqitcifkrwhrqp33/22/202402/22/2024Traumatic injury of head10/28/2023 10/28/2023Vasovagal gbfdcoj96ortic valve regurgitation MI 30.0-30.9,adultongestive heart ockpbqi37Left atrial jhnypwrbulp55Lower extremity edemaLVH (left ventricular hypertrophy)08/05/2023 08/05/20233903Skzrbnjhynyz06ositive fecal occult blood test Tubulovillous adenoma of colonEssential mziyrjpnoczh44/26/0958Nyyrdnnxguvixa78/21/2020Takotsubo pgmmlxgjywldmc58/21/2020 Paroxysmal atrial /03/2019 Encounters DateTypeDepartmentCare IxurUnpfotmgxbt67/02/2025Telephone [facility] [address] [place] [address] Fabienne Vidal MA 05/17/2025Telephone [facility] [address] [place] [address] Ashley Tran MA 05/17/2025Orders Only [facility] [address] [place] [phone] Ashley Tran MA Abnormal PFT (Primary Dx)from Last 3 Months Immunizations ImmunizationAdministration DatesNext DueInfluenza, Vtvdtarbbxz36/24/2016 Influenza, trivalent, /05/2020Moderna 12 YR UP Vaccine BiValent Fzgxvdc1808/28/2021,11/14/2020,10/18/2020Novel tfzejybue-H7D7-57, preservative-free09/14/2009Pneumococcal Conjugate PCV 13109/25/2016Pneumococcal Polysaccharide RBQ5347 Family History Medical HistoryRelationNameCommentsNo Known ProblemsFatherNo Known Problems MotherRelationNameStatusCommentsFatherMother Social History Tobacco UseTypesPacks/DayYears UsedDateSmoking Tobacco: FormerCigarettes Smokeless Tobacco: Never Tobacco Cessation:Counseling Given: Not Answered Alcohol UseStandard Drinks/WeekCommentsYes0 (1 standard drink = 0.6 oz pure alcohol)occasionalUT Safety & EnvironmentAnswerDate RecordedFear of Current or Ex-PartnerNot on file10/28/2023Emotionally AbusedNot on file10/28/2023hysically AbusedNot on file10/28/2023Sexually AbusedNot on file02/22/2024Physically or Sexually AbusedNot on file4CommentsUnknownSex and Gender InformationValueDate RecordedSex Assigned at TjgiiQyrwvq63/01/2025 2:27 PM EDT Legal BwdHlmwqz29/30/2022 12:14 AM EDTGender IlxuaquqLullht01/01/2025 2:27 PM EDTSexual OrientationHeterosexual or Hbueniwy63/01/2025 2:27 PM EDT Last Filed Vital Signs Vital SignReadingTime TakenCommentsBlood Uawbqyat444/76002/15/2025 10:37 AM EDT Sepnc321502/07/2024 9:57 AM EDTTemperature--Respiratory Rate--Oxygen Cqrcfpcpvx16% 02/15/2025 10:37 AM EDTInhaled Oxygen Concentration--Kuzcnm62.1 kg (159 lb) 02/15/2025 10:37 AM MZXLsmkkp415.9 cm (4' 11 )02/15/2025 10:37 AM EDTBody Mass Index32.11002/15/2025 10:37 AM EDT Plan of Treatment DateTypeDepartmentCare Team (Latest Contact Info)Mtxyiqotqqd67/28/2025 2:30 PM EDTOffice Visit [facility] [place] [address] [place] [address] Zeb Chicas MD [address] [place] [address] Health MaintenanceDue DateLast DoneCommentsMedicare Annual Wellness (AWV) 2Depression Uykctltdv78/04/1952Adult Uvxtzcf4303/09/1964Fall Risk Ezpwfaids78/04/2007COVID-19 Vaccine ( season)/, 11/14/2020, 10/18/2020Influenza Vaccine (#1)/, 07/11/2020, 06/29/2016, Additional history existsZoster Vaccines (2 of 2)05/10/2025 03/15/2025Pneumococcal Vaccine: 50+ KgpppIyimeilnv97/20/2017, 06/29/2016HIB VaccinesAged OutNo longer eligible based on patient's age to complete this topic HPV VaccinesAged OutNo longer eligible based on patient's age to complete this topicIPV VaccinesAged OutNo longer eligible based on patient's age to complete this topicMeningococcal B VaccineAged OutNo longer eligible based on patient's age to complete this topicMeningococcal VaccineAged OutNo longer eligible based on patient's age to complete this topicRotavirus VaccinesAged OutNo longer eligible based on patient's age to complete this topic Insurance MemberSubscriberPlan / Payer (Effective 2007-Present)Name:Nereida Agosto Member ID:[id number] Relation to Subscriber:SelfName:Nereida Agosto Subscriber ID:[id number] Payer ID:[id number] Group ID:Not on file Type:Medicare Address: [id number] Care Teams Team MemberRelationshipSpecialtyStart DateEnd Kole Servin MD [address] [facility] [address] [address] [facility] - General05/28/22
--- OUTSIDE RECORDS SUMMARY | 2025-07-03 12:12 | XMS_ITS | CCD ---
Author Organization [facility] Care Team Providers Care Arc Cutter Plasma Arc Name Role Phone SANDYIVANPETER Referring Unavailable JACINTO KAUR Primary Care Unavailable CHAPITO SHIPLEY Attending Unavailable CHAPITO SHIPLEY Admitting Unavailable CO Procedure Practitioner Unavailab SILVIANO Rendon Surgeon Unavailable ELTAHAWY, EHAB A Admitting Unavailable ALIVIATASHELLY, EHAB A Attending Unavailable JACINTO KAUR Referring Unavailable JACINTO KAUR Primary Care Unavailable YOLANDAY ., DR CASEY Admitting Unavailable HOY ., DR CASEY Primary Care Unavailable HOY ., DR CASEY Consulting Unavailable HOY ., DR CASEY Attending Unavailable HOY ., DR CASEY Admitting Unavailable HOY ., DR CASEY Primary Care Unavailable HOY ., DR CASEY Consulting Unavailable HOY ., DR CASEY Attending Unavailable PARKER, DR KELSI Aguirre Consulting Unavailable ZIEBER, DR DUDLEY Lee Consulting Unavailable HOY ., DR CASEY Admitting Unavailable HOY ., DR CASEY Primary Care Unavailable HOY ., DR CASEY Attending Unavailable HOY ., DR CASEY Admitting Unavailable HOY ., DR CASEY Primary Care Unavailable HOY ., DR CASEY Consulting Unavailable HOY ., DR CASEY Attending Unavailable Jacinto Kaur Primary Care Physician MD Rashi John Attending Provider Rashi John Attending Unavailable Rashi John Admitting Unavailable Harmony Bettencourt Attending Unavailable Harmony Bettencourt Attending Unavailable Rashi JOHN Attending Unavailable Rashi JOHN Attending Unavailable Rashi JOHN Attending Unavailable Harmony Bettencourt Admitting Unavailable Harmony Bettencourt Attending Unavailable Harmony Bettencourt Referring Unavailable Harmony Bettencourt Attending Unavailable Jacinto Kaur MD Primary Care Provider [phone] Jacinto Kaur MD Primary Care Provider [phone] MEERA JIMENEZ Attending Unavailable KHANG LORENZO Attending Unavailable Allergies Allergy ClassificationReported Allergen(s)Allergy TypeDate of OnsetReaction(s) Facility (9 sources)Sulfonamides (Antibiotic); Translations: [sulfa drugs]Drug allergy Unknown (qualifier value)General Surgery Anneliese (2 sources)Sulfonamides (Antibiotic); Translations: [SULFA (SULFONAMIDE ANTIBIOTICS)]Drug allergy (disorder)81-65-6299[facility]mrpytouwSub[facility] (2 sources)ALPRAZolam; Translations: [Xanax][facility] (4 sources)Alprazolam; Translations: [ALPRAZOLAM]Allergy to igbkdjuje03-10-9593 [facility] (3 sources)Sulfonamides (Antibiotic)Drug Dfbxxtl68-75-6113Gyhad, Unknown, Rash [facility] Medications Current Medications MedicationDrug Class(es)DatesSig (Normalized)Sig (Original)amiodarone hydrochloride 100 mg oral tablet (2 sources)AntiarrhythmicStart: 27-14-5558lljs 100 mg by mouth once daily in the morningAmiodarone Active 100 MG PO Every morning February 06, 2020 12:00am Start: 02-02-2020 End: 97-30-1238rzwv 200 mg by mouth once dailyAmiodarone Discontinued 200 MG PO Daily February 02, 2020 12:00am February 06, 2020 12:53pmapixaban 5 mg oral tablet (11 sources)Factor Xa InhibitorStart: 91-29-5556gdmk 1 tablet by mouth twice dailyaspirin 81 mg delayed release oral tablet (6 sources)Platelet Aggregation Inhibitor, Nonsteroidal Anti-inflammatory Drug Start: 72-63-4390yuoh 1 tablet by mouth once dailyaspirin 81 mg Oral EC Tab 81 mg = 1 tab(s), Oral, Daily, Refills(s) 0, Prophylaxis Start Date: 03/15/24 Status: OrderedStart: 12-14-2017 End: 94-66-3282rtvi 81 mg by mouth once dailyAspirin Discontinued 81 MG PO Daily December 14, 2017 12:00am February 02, 2020 1:51pmcarvedilol 12.5 mg oral tablet (12 sources)alpha-Adrenergic Elvin, beta-Adrenergic BlockerStart: 01-22-2023 take 1 tablet by mouth twice dailycarvedilol 12.5 mg Tab 12.5 mg = 1 tab(s), Oral, BID, Refills(s) 0, High blood pressure Start Date:01/22/23 Status: Ordered Start: 01-48-9249yyif 3.125 mg by mouth twice daily at mealtimeCarvedilol Active 3.125 MG PO Twice daily with meals 60 February 06, 2020 12:00amStart: 02-02-2020 End: 81-99-0718pvcy 6.25 mg by mouth twice dailyCarvedilol Discontinued 6.25 MG PO Twice daily February 02, 2020 12:00am February 06, 2020 12:53pmestradiol 0.1 mg/ml vaginal cream (1 source)EstrogenStart: 97-03-6477jygcrhfiz (Estrace) 0.1 MG/GM vaginal cream Indications: Well woman exam with routine gynecologicalexam , Encounter for screening mammogram for malignant neoplasm of breast 2g vaginal daily for 2 wee ks, then 2 times weekly following initial 2 weeks 42.5 g 05/02/2025 ActiveStart: 53-87-7815tzblxdwuf (Estrace) 0.1 MG/GM vaginal cream Indications: Well woman exam with routine gynecologicalexam , Encounter for screening mammogram for malignant neoplasm of breast 2g vaginal daily for 2 weeks, then 2 times weekly following initial 2 weeks 42.5 g 05/02/2025 Activeferrous sulfate 325 mg oral tablet (3 sources)Start: 47-94-8930recl 1 tablet by mouth twice dailyferrous sulfate 325 mg Tab 325 mg = 1 tab(s), Oral, BID, Refills(s) 0 Start Date: 01/22/23 Status: OrderedStart: 72-02-2785eqsi 325 mg by mouth every other dayFerrous Sulfate Active 325 MG PO Q2D February 06, 2020 12:00amfurosemide 20 mg oral tablet (8 sources)Loop DiureticStart: 18-19-0490njmy 1 tablet by mouth once daily furosemide (Lasix) 5 MG split tablet (3 sources)Start: 72-25-4555dsrn 4 tablets by mouth oncefurosemide (Lasix) 5 MG split tablet Take 20 mg by mouth 1 (one) time. 07/19/2022 ActivehydrOXYzine pamoate 25 mg oral capsule (1 source)AntihistamineStart: 49-40-6226Xtfmfaikjsm Pamoate Active 25 MG PO every 6 to 8 hours February 06, 2020 12:00am 1 to 2 tablets as needed for spasm levothyroxine sodium 0.05 mg oral tablet (11 sources)l-ThyroxineStart: 45-97-2277atrp 1 tablet by mouth once dailyStart: 78-95-1147qdhc 1 tablet by mouth before mealtimeSynthroid 50 MCG tablet Take 50 mcg by mouth in the morning. Take before meals. 01/22/2023 Activelisinopril 20 mg oral tablet (11 sources)Angiotensin Converting Enzyme InhibitorStart: 26-87-7084ntfo 1 tablet by mouth in the morninglisinopril 20 MG tablet Take 20 mg by mouth in the morning. 07/02/2022 ActiveStart: 23-87-5128qrgq 5 mg by mouth once daily Lisinopril Active 5 MG PO Daily February 02, 2020 12:00ammeclizine hydrochloride 25 mg oral tablet (10 sources)AntiemeticStart: 15-67-5954khbx 1 tablet by mouth twice daily meclizine 25 mg Tab 25 mg = 1 tab(s), Oral, BID, Refills(s) 0 Start Date: 02/02/23 Status: Orderednystatin 100 unt/mg topical powder (1 source)Polyene AntifungalStart: 05-02-2025 End: 20-80-5182ltnlzuic (Mycostatin) 538099 UNIT/GM powder Indications: Tinea Apply topically in the morning and in the evening and before bedtime. 15 g 05/02/2025 05/02/2026 ActiveoxyCODONE hydrochloride 5 mg oral tablet (1 source)Opioid AgonistStart: 25-94-1898udqp 1 tablet by mouth every four to six hours as neededOxycodone Active 5 MG PO EVERY 4-6 HOURS 30 7 February 06, 2020 5 mg 1to2 tablets orally as neededspironolactone 25 mg oral tablet (3 sources)Aldosterone AntagonistStart: 08-05-2023 End: 90-54-2695dctbnhlzixaoyw (Aldactone) 25 MG tablet Take 12.5 mg by mouth in the morning. 08/05/2023 5Active Completed/Discontinued Medications MedicationDrug Class(es)DatesSig (Normalized)Sig (Original)acetaminophen 325 mg / oxyCODONE hydrochloride 5 mg oral tablet (1 source)Opioid AgonistStart: 01-20-2018 End: 70-66-8365ctqu 1 tablet by mouth every four to six hoursOxycodone- Acetaminophen (Percocet) 5-325 mg tablet Discontinued 1 TAB PO EVERY 4-6 HOURS January 20, 2018 February 02, 2020 1:51pmalendronic acid 70 mg oral tablet (7 sources)BisphosphonateStart: 24-85-7826dbpe 1 tablet by mouth every week amLODIPine 10 mg / benazepril hydrochloride 20 mg oral capsule (2 sources)Dihydropyridine Calcium Channel Elvin, Angiotensin Converting Enzyme InhibitorStart: 12-15-2017 End: 41-61-2651oafj 1 capsule by mouth once dailyAmlodipine-Benazepril Discontinued 1 CAP PO Daily December 15, 2017 12:00am February 02, 2020 1:51pmStart: 12-14-2017 End: 09-41-6433xtsp 1 capsule by mouth once dailyAmlodipine-Benazepril (Lotrel) 5-10 mg Capsule Discontinued 1 CAP PO Daily December 14, 2017 12:00amApril 2017 11:20ambiotin 10 mg oral capsule (1 source)Start: 12-15-2017 End: 31-82-1197isbz 16766 ug by mouth once dailyBiotin Discontinued 69846 MCG PO Daily December 15, 2017 12:00am February 02, 2020 1:51pmC,E,Zinc,Copper 25-Iworh9b-Pwc (Ocuvite Adult 50 Plus) 250-5-1 mg Capsule (1 source)Start: 12-14-2017 End: 02-02-2020C,E,Zinc,Copper 83-Scvrz8o-Tpa (Ocuvite Adult 50 Plus) 250-5-1 mg Capsule Discontinued 250 MG PO Daily with breakfast December 14, 2017 12:00am February 02, 2020 1:51pmcalcium carbonate 1500 mg oral tablet (1 source)Start: 12-15-2017 End: 24-75-1207hxwg 1 tablet by mouth once dailyCalcium Carbonate (Calcium 600) 600 mg calcium (1,500 mg) Tablet Discontinued 600 MG PO Daily 2017 12:00am February 02, 2020 1:51pmcholecalciferol 0.01 mg oral tablet (4 sources)Vitamin DStart: 12-15-2017 End: 90-14-1447twun 2 tablets by mouth once dailyCholecalciferol (Vitamin D3) (Vitamin D3) 400 unit Tablet Discontinued 800 UNIT PO Daily December 15, 2017 12:00am February 02, 2020 1:51pmtake 1 capsule by mouth in the morning cholecalciferol (Vitamin D-3) 25 MCG (1000 UT) capsule Take 1,000 Units by mouth in the morning. Activepotassium chloride 20 meq extended release oral tablet (8 sources)Start: 52-32-8754xdbx 1 tablet by mouth once dailypotassium chloride 20 mEq ER Tab 20 mEq = 1 tab(s), Oral, Daily, Refills(s) 0, Prophylaxis Start Date: 01/22/23 Status: OrderedSalmon Oil-Dalbo-3 Fatty Acids ([place] Oil-1000) 1,000-200 mg Capsule (1 source)Start: 12-15-2017 End: 30-43-4839Ltpesr Oil-Dalbo-3 Fatty Acids ([place] Oil-1000) 1,000-200 mg Capsule Discontinued 2000 MG PO DailyApril 2017 12:00am February 02, 2020 1:51pm Problems Active Problems Problem ClassificationProblemDateDocumented DateEpisodic/ChronicCancer of colon (5 sources)History of malignant neoplasm of colon; Translations: [Personal history of other malignant neoplasmof large intestine]Onset: 97-03-3821Vbunivxx Cardiac dysrhythmias (12 sources)Unspecified atrial fibrillation; Translations: [Atrial fibrillation] Onset: 532851-86-3273PrsvvyuSesylekxgi heart failure; nonhypertensive (8 sources)Unspecified diastolic (congestive) heart failure; Translations: [Congestive heart failure]Onset: 211029-34-0348WzdanvnRfygmobsi of lipid metabolism (1 source)Hyperlipidemia, unspecified; Translations: [HYPERLIPIDEMIA UNSPECIFIED]Onset: 52-15-3820WzaqxqmKddaqikmv hypertension (8 sources)Hypertensive disorder; Translations: [Essential (primary) hypertension]80-92-3031NitxgujCqkzvcep of neck of femur (hip) (2 sources)Intertrochanteric fracture; Translations: [Displaced intertrochanteric fracture of left femur, initial encounter for closed fracture] 24-90-8361NtqsllunExsyaubl of upper limb (1 source)Fracture of humerus ; Translations: [Unspecified fracture of shaft of humerus, left arm, initial encounter for closed fracture]44-22-6234QbgsybveOubeq valve disorders (7 sources)Aortic valve emfrryagvacnw64-39-5169FhwarcfBbryzjvjychd with complications and secondary hypertension (1 source)Hypertensive heart disease with heart failure; Translations: [HTN HEART DISEASE W/HEART FAIL]Onset: 86-38-2218NxghrjoRafsloybtc disorders (2 sources)Other primary ovarian failure; 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]Onset: 883071-48-5338LhypfqpQjmiirw (1 source)Dermatophytosis; Translations: [Dermatophytosis, unspecified] 38-06-8897KpbhkimuZagzmclmznwh (11 sources)Age-related osteoporosis without current pathological fracture; Translations: [Osteoporosis]Onset: 071651-03-5654YrhrmwtBhudi aftercare (1 source)Drug therapy finding; Translations: [senior living (current) use of anticoagulants]05-66-4482BrnyuinwUoxnf and ill-defined heart disease (1 source)Cardiomegaly; Translations: [CARDIOMEGALY]Onset: 55-91-6582Ozbneic Other and ill-defined heart disease (7 sources)Left atrial efyqvxyllfe23-93-2033ObtsslvJoani and ill-defined heart disease (7 sources)Left ventricular xfbvxrylsea78-68-5185UzyyyvcNommh and ill-defined heart disease (5 sources)Qjolahudfmer66-63-5779ZxqabhdZqcpn and ill-defined heart disease (1 source)Takotsubo cardiomyopathy; 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]08-18-2023 ChronicOther and unspecified benign neoplasm (4 sources)Benign neoplasm of colon; Translations: [Benign neoplasm of colon, unspecified]Onset: 40-15-6235JzjmykaoNmkjq and unspecified benign neoplasm (6 sources)Adenomatous polyp of dfxia87-55-8861BslfiejjGbkfl and unspecified benign neoplasm (6 sources)History of polyp of colon; Translations: [Personal history of colonic polyps]Onset: 48-37-1575XxayyhhsCgbri gastrointestinal disorders (1 source)Abnormal feces; Translations: [Other fecal abnormalities]Onset: 64-88-9134MwhcjsvcXxovg gastrointestinal disorders (7 sources)Occult blood in yjxoip57-05-6966GfprowiyFkgza injuries and conditions due to external causes (1 source)Injury of head; Translations: [Unspecified injury of head, initial encounter]48-85-3139EjegkmiyKhcpq non-traumatic joint disorders (1 source)Pain in right knee; Translations: [Right knee pain]60-03-9678Jlhmidtl Other nutritional; endocrine; and metabolic disorders (7 sources)Body mass index 30+ - qeqrgev40-15-9231IdaiipzLxkar nutritional; endocrine; and metabolic disorders (5 sources)Obesity caused by energy hmixqrzqf56-87-5161UxadxllQifgz nutritional; endocrine; and metabolic disorders (1 source)Obese class I; Translations: [Body mass index (BMI) 32.0-32.9, adult] Onset: 32-43-9590UtjqwepKpbih screening for suspected conditions (not mental disorders or infectious disease) (5 sources)Encounter for screening mammogram for malignant neoplasm of breast; Translations: [Patient encounter status]Onset: 57-64-1076PkfjbvcpVbyr-; endo-; and myocarditis; cardiomyopathy (except that caused by tuberculosis or sexually transmitted disease) (7 sources)Lhkhkksfpxcbqp19-99-3838BdnyxgiZpcpmubc codes; unclassified (7 sources)Edema of lower zoduaxfbt28-80-5113JnajfgfjMwbsysl (1 source)Vasovagal syncope; Translations: [Syncope and collapse]08-18-2023 EpisodicThyroid disorders (8 sources)Hypothyroidism, unspecified; Translations: [Hypothyroidism]Onset: hronic Past or Other Problems Problem ClassificationProblemDateDocumented DateEpisodic/ChronicCardiac dysrhythmias (3 sources)ECG: sinus bradycardia; Translations: [Bradycardia, unspecified] Onset: 022180-07-2021KbmqpulqMcthwkpntn and other anemia (1 source)Anemia, unspecified; Translations: [ANEMIA UNSPECIFIED]Onset: 98-18-6988GwgyqvewXpvuluie mellitus without complication (1 source)Other abnormal glucose; Translations: [OTHER ABNORMAL GLUCOSE]Onset: 89-55-1952ShdkmjupAkmyq injuries and conditions due to external causes (1 source)History of falling; Translations: [HISTORY OF FALLING]Onset: 32-08-1732KgfdtaekTatau lower respiratory disease (2 sources)Shortness of breath; Translations: [Shortness of breath]Onset: 99-26-9537Unevterk Results Test NameValueInterpretationReference RwrynAxzqiacx00gd 23-16-213764TzqvcjrKAILEY Craven MA Please let her know her ECHO showed no changes in heart function, no signifcant valve abnormalities. Recommend follow-up with Dr. Chicas as planned to review if a.fib is the culprit of her sx's. Thank you Spoke to patient to advise her of Echo results per Jasmina Lorenzo. Patient verbalized understand and will be seeing Dr. Chicas Jul 03NormalUniversSelect Medical [facility] Hospital36on 16-42-430040HFU [facility] PULM PT NEEDS CHEST XRAY FOR APPT ON 06/04/25. PT INFORMED AND ORDER SENT TO [facility] Onlyon 10-29-7251Bvkkvl [id number] Nereida Agosto 1940 F Date Provider Department Center 05/17/2025 MACKENZIE CASTILLO CARD [facility] Family History Problem Relation Age of Onset No Known Problems Mother No Known Problems Father Family Status - Relation Status Age at Mother FatherNormalUniAultman Orrville Hospital36on 33-60-848204Eibfdfc Tucker, CNP to Me (Selected Message) [place] 03/20/25 2:27 PM Note Please let her know her lung function testing appears worse than previously that I have available for review. Please refer her to pulmonary for further evaluation. Thank you Pulmonary function testing Advised patient of PFT results. Patient verbalized understanding and requested the referral for pulmonary be sent to [facility]. Referral sentNormalUniAultman Orrville HospitalResults Follow-Upon 43-02-7575Rmtruzk Follow-[id number] Nereida Agosto P 1940 F Date Provider Department Center 03/20/2025 KHANG [facility] None Family History Problem Relation Age of Onset No Known Problems Mother No Known Problems Father Family Status - Relation Status Age at Mother FatherNormalUniversSelect Medical TriHealth Rehabilitation HospitalOrders Onlyon 44-55-6141Twhbli [id number] Kirill Agostoine P 1940 F Date Provider Department Center 03/15/2025 [id number], HISTORICAL CARD [facility] Family History Problem Relation Age of Onset No Known Problems Mother No Known Problems Father Family Status - Relation Status Age at Mother FatherNormalUniversSelect Medical TriHealth Rehabilitation HospitalOffice Visiton 75-57-6890Drpqos- up [id number] Kirill Agostoine P 1940 F Date Provider Department Center 02/15/2025 166KHANG RAI KIM [facility] Family History Problem Relation Age of Onset No Known Problems Mother No Known Problems Father Family Status - Relation Status Age at Mother Father Level of Service:38138 CO OFFICE/OUTPATIENT ESTABLISHED MOD MDM 30 MIN Reason for Visit and Comments: Shortness of Breath [129477] Atrial Fibrillation [80]NormalUnMercy Health Kings Mills HospitalCCF CALCIUMon 03-72-0419Rzuwkul [Mass/Vol]9.4 mg/dL8.5 - 10.1 mg/dLSSM Health [facility] Glennon Children's HospitalNo Panel Informationon 84-04-1995UWWKJKWTVIRFB HealthcareTB CREATININEon 11-15-2024 Creatinine [Mass/Vol]1.32 mg/dLHigh0.55 - 1.02 mg/dLNOSt. Louis Children's HospitalGFR/1.73 sq M.predicted CKD-EPI (S/P/Bld) [Vol rate/Area]47Low>=60 mL/min/1.73m 2NOKLAHOMA STATE UNIVERSITY [facility] HealthcareInterpretation and review of laboratory resultsAbnormJeanes Hospital EGFR-NON AF MXZWOKBS22Cfm>=60 mL/min/1.73m 2NOMS HealthcareGastroenterology Office/Clinic Noteon 25-04-6622Hnhznrvzeehwbztw Office/Clinic Note Gastroenterology Office/Clinic Note Chief Complaint [...] Tobacco Use:. Never Smokeless Tobacco Use:. Cigarettes, 2per day. Started age 25.0 Years. Stopped age [...] 06/29/2016 Recorded influenza, unspec (more content not included)...[facility] HospitalComment on above:Result Comment: Electronically Signed By: Rut AHMADI, Harmony Jay\.br\Date and Time Signed: 09/28/2508:23 ESTReminderson 09-26-2024 RemindersReminders From: Uyen Carnes To: [facility] - Reminders/Recalls; Sent: 09/26/2024 12:44:45 EST Show [...] SIGMOID COLON, POLYPECTOMY: HYPERPLASTIC COLONIC GLANDULAR MUCOSAL POLYPNormalToledo Hospital Surgical Pathology Reporton 75-50-3577Jjxkwmgb Pathology Report[address] [address]- Surgical Pathology Report Collected Date/Time: 09/13/2024 11:37 EST Pathologist: Christopher Delarosa MD Date/Time: 09/13/2024 13:54 EST Harmony Bettencourt MD, MD, Harmony Gilmore Surgical Pathology Report - [...] is entirely submitted in one cassette. (DC) DC:[facility] Microscopic Description Microscopic examination performed unless gross only specified.Mansfield HospitalComment on above:Performed By: #### [id number] #### [facility] [address] [place] [id number] OR Intraoperative Recordon 43-05-1112Ljmj OR Intraoperative RecordMain OR Intraoperative Record IntraOp Document Type FT Summary Primary Physician: Harmony Bettencourt MD Finalized Date/Time: 09/14/24 14:42:48 Pt. Name: NEREIDA AGOSTO/Sex: 1940 Female Med Rec #: [id number] Physician: Harmony Bettencourt MD Financial #: [id number] Pt. Type: O Room/Bed: / Admit/Disch: 09/13/24 [...] Llanos Role Performed Anesthesiologist Surgeon - Primary Internal Security Manager - Primary Work Ticket Distributor Time In 09/13/24 11:15:00 09/13/24 11:15:00 09/13/24 [...] prosthetics or corrective devic (more content not included)...[facility] HospitalDischarge Instructionson 09-13-2024 Discharge InstructionsDischarge Instructions NEREIDA AGOSTO :1940 Visit Date:09/13/2024 Inpatient [...] With: Harmony Bettencourt MD Where: [facility] [address] [place] [address] [place] [address]- New Follow Up Appointments after Discharge Follow Up with Harmony Bettencourt MD, [facility] When: Comments: -Office to call for pathology results. Call for any problems. [phone] Where: [address], [address] [place] [address]- [phone] Business (1) Medications What How Much When [...] on caring for yourself after you leave thespital. Your doctor may also give you specific [...] Heavy or fried foods are harder to digestand may make you feel nauseated (sick to your stomach). Avoid alcoholic beverages for 24 hours or as instructed. MEDICATIONS You may resume your normal medications unless your doctor tells you otherwise. WHAT YOU CAN EXPECT TODAY Some feelings of bloating in the abdomen. Passage of more gas than usual. Spotting of blood in your stool or on th (more content not included)...Normal [facility] HospitalComment on above:Result Comment: Electronically Signed By: Celio BOWER, Renetta Aquino\.br\Date and Time Signed: 09/13/24 12:22 ESTH&P Updateon 09-13-2024H&P UpdateH&P Update Patient: NEREIDA AGOSTO Age: 84 years [...] Impression and Plan Diagnosis: Recurrent cecal polyp colonoscopyNormalToledo HospitalMain OR PACU I Recordon 09-13-2024 Main OR PACU I RecordMain OR PACU I Record PACU Phase I Document Type FT Summary Primary Physician: Harmony Bettencourt MD Finalized Date/Time: 09/13/24 13:11:22 Pt. Name: NEREIDA AGOSTO Caryn Bolivar/Sex: 1940 Female Med Rec #: [id number] Physician: Harmony Bettencourt MD Financial #: [id number] Pt. Type: O Room/Bed: / Admit/Disch: 09/13/24 [...] individualized perioperative plan of care The patient's rightto privacy is maintained The patient's value system, [...] with or improved from baseline levels established preoperativelyThe patient's cardiovascular status is consistent with or improved from baseline levels established preoperatively The patient's cardiovascular status is consistent with or improved from baseline levels established preoperatively The patient demonstrates and/or reports adequate pain control throughout the perioperative period The patient received appropriate medication(s), safely administered during the perioperativeperiod Acuity Level PACU I FT Entry 1 Start Time 09/13/24 11:43:00 Stop Time 09/13/24 12:43:00 Acuity Level Acuity Level I Last Modified By: Renetta Pickens RN 09/13/24 13:11:19 Finalized By: Renetta Pickens RN Document Signatures Signed By: Renetta Pickens RN 09/13/24 13:11NoGalion HospitalMain OR Preoperative Recordon 67-93-3970Ahyo OR Preoperative RecordMain OR Preoperative Record Holding Area Document Type FT Summary Primary Physician: Harmony Bettencourt MD Finalized Date/Time: 09/13/24 09:36:21 Pt. Name: KATHERINEGINEREIDAO.B./Sex: 1940 Female Med Rec #: [id number] Physician: Harmony Bettencourt MD Financial #: [id number] Pt. Type: O Room/Bed: / Admit/Disch: 09/13/24 [...] or her perioperative plan of care The patient'sright to privacy is maintained Surgery Checklist FT [...] Patient states Yes Comment - Adult Adonis aguilar postop adult Supervision supervision available Case Cancelled in No Holding Area see comments below for reason Last Modified By: Shawn Barrera RN 09/13/24 09:36:19 General Comments: pt finished bowel prep at 0730, per patient nothing to eat or drink since MSRN Finalized By: Shawn Barrera RN Document Signatures Signed By: Shawn Barrera RN 09/13/24 09:36NoGalion HospitalOperative Reporton [id number] ReportOperative Report Patient: NEREIDA AGOSTO Age: 84 years Sex: Female : 1940 Associated Diagnoses: None Author: Harmony Bettencourt MD Pre-Procedure Procedure Date 09/13/2024 11:43:00 . Procedure Type: Colonoscopy with removal of tumor(s), polyp(s), or other lesion(s) by cold snare technique, endoscopic mucosal resection. Procedure provider Performed by Harmony Bettencourt MD. Current history and physical Documented on chart. Colonoscopy ([id number]) on 04/26/2024 at 84 Years. Colonoscopy ([id number]) on 02/24/2023 at 82 Years. Tubal ligation ([id number]). Closed fracture of hip (975134421). Cardiac fluoroscopy ([id number]).. Past Medical History No active or resolved past medical history items have been selected or recorded.. Family History Asthma Mother Renal cell carcinoma Brother . Procedure History Colonoscopy ([id number]) on 04/26/2024 at 84 Years. Colonoscopy ([id number]) on 02/24/2023 at 82 Years. Tubal ligation ([id number]). Closed fracture of hip (145369819). Cardiac fluoroscopy ([id number]).. Colorectal neoplasm risk assessment High risk Previous [...] the left lateral decubitus position. Endoscope type usedwas an adult-size. The endoscope was lubricated then introduced through the anus. The scope was advanced to the terminal ileum. No difficulties encountered during the procedure. The bowel preparationquality was good and was adequate (see polyps [...] Normal terminal ileum Images Procedure images: Rec_hd_video__50_46_476.jpg Rec1_hd_video__48_46_121.jpg Rec1_hd_video__48_26_033.jpg Rec1_hd_video__47_44_799.jpg Rec1_hd_video__46_33_322.jpg Rec1_hd_video__44_25_246.jpg Rec1_hd_video__45_13_936.jpg Rec1_hd_video__42_37_592.jpg Rec1_hd_video__40_20_010.jpg Rec1_hd_video__39_47_195.jpg Rec1_hd_video_2024__T1_39_35_664.jpg Rec1_hd_video__T1_38_25_772.jpg Rec1_hd_video__T1_36_12_775.jpg . Post-Procedure Complications: none. Estimated blood loss: Minimal. Specimens: sent to pathology. De (more content not included)...[facility] HospitalComment on above:Result Comment: Electronically Signed By: Harmony Bettencourt MD\.br\Date and Time Signed: 09/13/2510:47 ESTOther Comment: Missing Attachment - attachment storage system not supported [id number] Can be viewed in source systemMissing Attachment - attachment storage system not supported [id number] Can be viewed in source systemMissing Attachment - attachment storage system not supported [id number] Can be viewed in source systemMissing Attachment - attachment storage system not supported [id number] Can be viewed in source systemMissing Attachment - attachment storage system not supported [id number] Can be viewed in source systemMissing Attachment - attachment storage system not supported [id number] Can be viewed in source systemMissing Attachment - attachment storage system not supported [id number] Can be viewed in source systemMissing Attachment - attachment storage system not supported [id number] Can be viewed in source systemMissing Attachment - attachment storage system not supported [id number] Can be viewed in sourcesystemMissing Attachment - attachment storage system not supported [id number] Can be viewed in source systemMissing Attachment - attachment storage system not supported [id number] Can be viewed in source systemMissing Attachment - attachment storage system not supported [id number] Can be viewed in source systemMissing Attachment - attachment storage system not supported [id number] Can be viewed in source systemAmbulatory Visit Summaryon [id number] Visit Summary Ambulatory Visit Summary NEREIDA AGOSTO :1940 Visit Date:06/08/2024 Ambulatory Visit Instructions Your Diagnosis Tubulovillous adenoma of colon History of colon cancer Your Care Team Attending Physician - Harmony Bettencourt MD Primary Care Physician - Jacinto Kaur MD This Is Your Medications List Contact [...] EST With: Rut AHMADI, Harmony Jay Where: [facility] [address] [place] [address] [place], [place] [id number]- Medications What How Much When Instructions Unchanged [...] you for choosing us for your care. [facility] HospitalG[facility]ology Office/Clinic Noteon [id number] Office/Clinic NoteGastroenterology Office/Clinic Note Chief Complaint dr john ref for repeat scope HPI Staff This is a year old female who presents today for a referral by Dr John for repeat Colonoscopy with lift technique. Blood Thinners- Eliquis. Denies GLP-1 Agonists. Colonoscopy w/ Dr John 04/26/24 Postoperative Diagnosis: Recurrent cecal polyp x2 as well as diverticulosis Last office visit w/ Dr John 05/10/24 Assessment/Plan 1. Tubulovillous adenoma of colon [...] Tobacco Use:. Never Smokeless Tobacco Use:. Cigarettes, 2per day. Started age 25.0 Years. Stopped age [...] vaccine 06/29/2016 Recorded influenza, unspecified formulation 06/29/2016 RecordedMansfield HospitalComment on above:Result Comment: Electronically Signed By: Rut AHMADI, Harmony Mckeon.br\Date and Time Signed: 06/08/2410:25 EDTGeneral Surgery Office/Clinic Noteon [id number] Surgery Office/Clinic NoteGeneral Surgery Office/Clinic Note Chief Complaint colonoscopy follow up HPI Staff 14 day post operative follow up post colonoscopy with cecal polypectomy x 2. History of Present Illness f/u colonoscopy with cold snare polypectomy x2 for large ascending colon tubulovillous adenomas, nodysplasia; had large tubulovillous adenoma with focus of high grade dysplasia removed from ascending colon 1 year ago; denies abd pain or blood in stools. Review of Systems ROS - Provider Constitutional: no fever, no sweats, no weight loss. Eyes: no glasses, no blurred vision, no visual loss. ENMT: no dentures, no hoarseness, no swallowing difficulties, no hearing loss, no ear infection(s),no nose bleeds. Cardiovascular: normal blood pressure, no [...] E&M of Est. Patient Low 20-29 Min [id number] [facility] [place] Referral Follow-up No qualifying data [...] Tobacco Use:. Never Smokeless Tobacco Use:. Cigarettes, 2per day. Started age 25.0 Years. Stopped age 42 Years., 03/15/2024 Family History Asthma: Mother. Renal cell carcinoma: Brother. Immunizations Vaccine Date Status influenza virus vaccine, inactivated 07/21/2022 Recorded SARS-CoV-2 (COVID-19) mRNA-1273 vaccine 08/28/2021 Recorded SARS-CoV-2 (COVID-19) mRNA-1273 vaccine 11/14/2020 Recorded SARS-CoV-2 (COVID-19) mRNA-1273 vaccine 10/18/2020 RecordedMansfield HospitalComment on above:Result Comment: Electronically Signed By: ALVARO AHMADI, Rashi Lee\.br\Date and Time Signed: 05/10/24 13:55 EDTPathology Request for Lab Corpon [id number] Request for Lab CorpNoFormerly [facility] Physician GroupComment on above:Order Comment: PATHOLOGY GI SPECIMENResult Comment: See report. Scanned copy available in EMR. PERFORMED BY: [place] [address] PATHOLOGIST MANUFACTURING MACHINE OPERATOR JAVIER GOODE M.D.Performed By: #### [facility] #### [place] [address] USAAmbulatory Visit Summaryon [id number] Visit SummaryAmbulatory Visit Summary NEREIDA AGOSTO :1940 Visit Date:03/15/2024 Ambulatory Visit Instructions Your Diagnosis Personal history of colonic polyps Your Care Team Attending Physician - ALVARO AHMADI, Rashi Lee Primary Care Physician - Jacinto Kaur MD This Is Your Medications List aspirin [...] you for choosing us for your care. [facility] HospitalGeneral Surgery Office/Clinic Noteon 03-08-0103Cwqnzot Surgery Office/Clinic NoteGeneral Surgery Office/Clinic Note Chief Complaint surveillance colonoscopy [...] swallowing difficulties, no hearing loss, no ear infection(s),no nose bleeds. Cardiovascular: normal blood pressure, no [...] Tobacco Use:. Never Smokeless Tobacco Use:. Cigarettes, 2per day. Started age 25.0 Years. Stopped age 42 Years., 03/15/2024 Family Hist (more content not included)...[facility] Comment on above:Result Comment: Electronically Signed By: ALVARO AHMADI, Rashi Weaver\Date and Time Signed: 03/15/24 14:08 EDTOCC BLD IMMUNO SCREENon 01-19-2023 OCCULT BLOODPositiveAbnormalNEGATIVEThe Memorial Health SystemComment on above: Performed By: #### OBSCRN #### [facility] [address] [place] [address] Dr. Dinah Dunn AUTO DIFFon [id number] #0.0 103/ulNormal0.0-0.1[facility] HospitalComment on above:Performed By: #### CBC #### [facility] [address] [place] [address] Dr. Dinah RodrigesBasophils/100 WBC (Bld)0.6 %Normal0.2-2.0[facility] Comment on above:Performed By: #### CBC #### [facility] [address] [place] [address] Dr. Dinah Palacios #0.1 103/ulNormal0.0-0.7The [facility] Health SystemComment on above: Performed By: #### CBC #### [facility] [address] [place] [address] Dr. Dinah Yaposinophils/100 WBC (Bld)1.8 %Normal0.9-7.0[facility] Comment on above:Performed By: #### CBC #### [facility] [address] [place] [address] Dr. Dinah Yaprythrocyte distribution width (RBC) [Ratio]12.7 %Ftefif07.0-15.0 The [facility] Health SystemComment on above:Performed By: #### CBC #### [facility] [address] [place] [address] Dr. Dinah RodrigesHematocrit (Bld) [Volume fraction]39.7 %Zhnmby04.0-48.0The [facility] SystemComment on above:Performed By: #### CBC #### [facility] [address] [place] [address] Dr. Dinah RodrigesHemoglobin (Bld) [Mass/Vol]12.6 g/nRMhagct75.0-16.0The [facility] SystemComment on above:Performed By: #### CBC #### [facility] [address] [place] [address] Dr. Dinah Witt #0.01 10e3/ulNormal0.00-0.03The [facility] SystemComment on above:Performed By: #### CBC #### [facility] [address] [place] [address] Dr. Dinah Witt %0.2 %Normal0.0-0.5The [facility]ucl[facility] Hospitalment on above: Performed By: #### CBC #### [facility] [address] [place] [address] Dr. Dinah Martin #1.5 103/ulNormal1.2-3.8The [facility] SystemComment on above:Performed By: #### CBC #### [facility] [address] [place] [address] Dr. Dinah Bainhocytes/100 WBC (Bld)28.7 %Bqwygx83.5-60.0The [facility] Hospitalment on above:Performed By: #### CBC #### [facility] [address] [place] [address] Dr. Dinah BaeUAL DIFF REQNONormalThe [facility] Health SystemComment on above: Performed By: #### CBC #### [facility] [address] [address] [address] Dinah Mcneil (RBC) [Entitic mass]30.7 wrHelktq88.7-34.0The [facility] SystemComment on above:Performed By: #### CBC #### [facility] [address] [place] [address] Dr. Dinah Mcneil (RBC) [Mass/Vol]31.7 g/tDWpoqgk23.9-35.2The [facility] SystemComment on above:Performed By: #### CBC #### [facility] [address] [place] [address] Dr. Dinah Mcniel (RBC) [Entitic vol]96.8 wNHbcjho76.0-99.0The [facility] SystemComment on above:Performed By: #### CBC #### [facility] [address] [place] [address] Dr. Dinah Cortes #0.4 103/ulNormal0.3-0.8The [facility] SystemComment on above:Performed By: #### CBC #### [facility] [address] [place] [address] Dr. Dinah Gandhiocytes/100 WBC (Bld)7.3 %Normal1.7-12.0The [facility] on above:Performed By: #### CBC #### [facility] [address] [place] [address] Dr. Dinah Brown #3.1 103/ulNormal1.4-6.5The [facility] SystemComment on above:Performed By: #### CBC #### [facility] [address] [place] [address] Dr. Dinah Darlingutrophils/100 WBC (Bld)61.4 %Huuugq89.0-75.0The [facility] SystemComment on above:Performed By: #### CBC #### [facility] [address] [place] [address] Dr. Dinah Sierralet mean volume (Bld) [Entitic vol]9.7 fLNormal9.5-13.5The [facility] SystemComment on above:Performed By: #### CBC #### [facility] [address] [place] [address] Dr. Dinah RodrigesPLT163 103/hxEioild885-182Mkt [facility] SystemComment on above: Performed By: #### CBC #### [facility] [address] [address] [address] Dinah RodrigesRBC4.10 106/ulCritically low4.20-5.40The [facility] SystemCommymichigan medical center on above:Performed By: #### CBC #### [facility] [address] [place] [address] Dr. Dinah RodrigesWBC5.1 103/ulNormal4.0-11.0The [facility] SystemComment on above: Performed By: #### CBC #### [facility] [address] [place] [address] Dr. Dinah RodrigesFRCHAYO T3on 08-18-9763KAMX T32.11 pg/mlLCritically low2.18-3.98The [facility] SystemCommymichigan medical center on above:Performed By: #### CMP, TSH, T4, LIPID, FT3 #### [facility] [address] [place] [address] Dr. Dinah RodrigesGLYCOHEMOGLOBIN A1Con [id number] RECOMMENDATIONSEE BELOWNormal The Memorial Health SystemCommymichigan medical center on above:Result Comment: ADA RECOMMENDED LIMIT 4.0 - 6.0 ADA THERAPEUTIC TARGET < 7.0 ACTION SUGGESTED > 7.0Performed By: #### A1C ####[facility] [address] [address]Dr. Dinah RodrigesGlucose [Mass/Vol]105 mg/dLNormalThSelect Medical Specialty Hospital [facility] Board[facility], IncCommymichigan medical center on above:Performed By: #### A1C ####[facility] [address] [address]Dr.Yilan RodrigesHbA1c (Bld) [Mass fraction]5.3 %Normal 4.5-6.2The [facility] Health SystemComment on above:Performed By: #### A1C ####[facility] [address] [address]Dr.Yilan HagerID PROFILEon [id number]-HDL RATIO NORMSEE [facility] Comment on above:Result Comment: 3.3 - 4.4 LOW RISK 4.4 - 7.1 AVERAGE RISK 7.1 - 11.0 MODERATE RISK >11.0 HIGH RISKPerformed By: #### CMP, TSH, T4, LIPID, FT3 #### [facility] [address] [address] [address] Dinah RodrigesCholesterol [Mass/Vol]168 mg/dLNormal<=200[facility] Comment on above:Performed By: #### CMP, TSH, T4, LIPID, FT3 #### [facility] [address] [address] [address] Dinah Galanesterol in HDL [Mass/Vol]61 mg/dLCritically xcng21-57PnfFayette County Memorial HospitalComment on above:Performed By: #### CMP, TSH, T4, LIPID, FT3 #### [facility] [address] [address] [address] Dinah Galanesterol in LDL [Mass/Vol]94.0 mg/dLNoBrown Memorial HospitalComment on above:Performed By: #### CMP, TSH, T4, LIPID, FT3 #### [facility] [address] [address] [address] Dinah Singh.total/Cholesterol in HDL [Mass ratio]2.8 {ratio} NormalFayette County Memorial HospitalComment on above:Performed By: #### CMP, TSH, T4, LIPID, FT3 #### [facility] [address] [address] [address] Dinah Thomson NORMAL> or = 60 mg/dl - LOW CARDIOVASCULAR RISK <40 mg/dl - HIGH CARDIOVASCULAR RISKSouthview Medical CenterComment on above:Performed By: #### CMP, TSH, T4, LIPID, FT3 #### [facility] [address] [place] [address] Dr. Dinah Núñez CALC NORMALSEE BELOWSouthview Medical CenterComment on above:Result Comment: <100 mg/dl OPTIMAL 100 - 129 mg/dl NEAR OR ABOVE OPTIMAL 130 - 159 mg/dl BORDERLINE HIGH 160 - 189 mg/dl HIGH >190 mg/dl VERY HIGH Performed By: #### CMP, TSH, T4, LIPID, FT3 #### [facility] [address] [place] [address] Dr. Dinah RodrigesTriglyceride [Mass/Vol]65 mg/dLNormal<=150The [facility] Comment on above:Performed By: #### CMP, TSH, T4, LIPID, FT3 #### [facility] [address] [place] [address] Dr. Dinah RodrigesVLDL CALC13.0 mg/dLNoBrown Memorial HospitalComment on above: Performed By: #### CMP, TSH, T4, LIPID, FT3 #### [facility] [address] [place] [address] Dr. Dinah RodrigesPROF 14(COMP METB)on [id number] [Mass/Vol]3.4 g/dLNormal 3.4-5.0[facility] HospitalComment on above:Performed By: #### CMP, TSH, T4, LIPID, FT3 #### [facility] [address] [place] [address] Dr. Dinah RodrigesAlbumin/Globulin [Mass ratio]1.0 {ratio}NormalThe Memorial Health SystemComment on above:Performed By: #### CMP, TSH, T4, LIPID, FT3 #### [facility] [address] [place] [address] Dr. Dinah Romero [Catalytic activity/Vol]59 U/PGamecw80-203Klu [facility] SystemComment on above:Performed By: #### CMP, TSH, T4, LIPID, FT3 #### [facility] [address] [place] [address] Dr. Dinah Thacker [Catalytic activity/Vol]13 U/LCritically ddy70-33Pxc [facility] SystemComment on above:Performed By: #### CMP, TSH, T4, LIPID, FT3 #### [facility] [address] [place] [address] Dr. Dinah RodrigesAnion gap [Moles/Vol]10.7 mmol/LNormalFayette County Memorial Hospital Comment on above:Performed By: #### CMP, TSH, T4, LIPID, FT3 #### [facility] [address] [place] [address] Dr. Dinah RodrigesAST [Catalytic activity/Vol]14 U/LCritically gxa87-31Ajr [facility] SystemComment on above:Performed By: #### CMP, TSH, T4, LIPID, FT3 #### [facility] [address] [place] [address] Dr. Dinah RodrigesBilirubin [Mass/Vol]0.3 mg/dLNormal0.2-1.0[facility] Comment on above:Performed By: #### CMP, TSH, T4, LIPID, FT3 #### [facility] [address] [place] [address] Dr. Dinah RodrigesCalcium [Mass/Vol]9.4 mg/dLNormal8.5-10.1[facility] Comment on above:Performed By: #### CMP, TSH, T4, LIPID, FT3 #### [facility] [address] [place] [address] Dr. Dinah RodrigesChloride [Moles/Vol]106 mmol/VHnbhyj36-368IweFayette County Memorial Hospital Comment on above:Performed By: #### CMP, TSH, T4, LIPID, FT3 #### [facility] [address] [place] [address] Dr. Dinah RodrigesCO2 [Moles/Vol]31.9 mmol/PNglhba89.0-32.0[facility] Comment on above:Performed By: #### CMP, TSH, T4, LIPID, FT3 #### [facility] [address] [place] [address] Dr. Dinah RodrigesCreatinine [Mass/Vol]0.95 mg/dLNormal0.55-1.02The [facility] Health SystemComment on above:Performed By: #### CMP, TSH, T4, LIPID, FT3 #### [facility] [address] [place] [address] Dr. Dinah YapGFR-AF PERUVIAN>60Normal>=60[facility] HospitalComment on above:Performed By: #### CMP, TSH, T4, LIPID, FT3 #### [facility] [address] [place] [address] Dr. Dinah YapGFR-NON AF SZGEIQQA33 mL/min/1.02h6Tkadrwlypj low>=60The [facility] Health SystemComment on above:Performed By: #### CMP, TSH, T4, LIPID, FT3 #### [facility] [address] [place] [address] Dr. Dinah RodrigesGlobulin (S) [Mass/Vol]3.4 g/dLNormalThe [facility] Health SystemComment on above:Performed By: #### CMP, TSH, T4, LIPID, FT3 #### [facility] [address] [place] [address] Dr. Dinah RodrigesGlucose [Mass/Vol]88 mg/cEBklvdw06-954NbpFayette County Memorial Hospital Comment on above:Performed By: #### CMP, TSH, T4, LIPID, FT3 #### [facility] [address] [place] [address] Dr. Dinah RodrigesPotassium [Moles/Vol]4.6 mmol/LNormal3.5-5.1[facility] Comment on above:Performed By: #### CMP, TSH, T4, LIPID, FT3 #### [facility] [address] [place] [address] Dr. Dinah RodrigesProtein [Mass/Vol]6.8 g/dLNormal6.4-8.2[facility] Comment on above:Performed By: #### CMP, TSH, T4, LIPID, FT3 #### [facility] [address] [place] [address] Dr. Dinah RodrigesSodium [Moles/Vol]144 mmol/INsnqmh933-083LrqFayette County Memorial Hospital Comment on above:Performed By: #### CMP, TSH, T4, LIPID, FT3 #### [facility] [address] [place] [address] Dr. Dinah Bui nitrogen [Mass/Vol]18.0 mg/dLNormal7.0-18.0The [facility] Hospitalment on above:Performed By: #### CMP, TSH, T4, LIPID, FT3 #### [facility] [address] [place] [address] Dr. Dinah Bui nitrogen/Creatinine [Mass ratio]18.9 mg/mgNormalThe [facility] Health SystemComment on above:Performed By: #### CMP, TSH, T4, LIPID, FT3 #### [facility] [address] [place] [address] Dr. Dinah RodrigesT4on 53-94-1928I3 [Mass/Vol]9.30 ug/dLNormal4.80-13.90The [facility] on above:Performed By: #### CMP, TSH, T4, LIPID, FT3 #### [facility] [address] [place] [address] Dr. Dinah Fan 88-67-8893TXL5.872 uIU/mLNormal0.358-3.740The [facility] on above:Performed By: #### CMP, TSH, T4, LIPID, FT3 #### [facility] [address] [place] [address] Dr. Dinah Dixon 89-75-0783Rxjgoinvomr peptide B (Bld) [Mass/Vol]464.0 pg/mL Normal<=1,800.0The [facility] on above:Performed By: #### TSH, BNP, T7, LIPID, CMP ####[facility] [address] [address]Dr. Dinah Dunn AUTO DIFFon [id number] #0.0 103/ulNormal 0.0-0.1[facility] on above:Performed By: #### CBC #### [facility] [address] [place] [address] Dr. Dinah RodrigesBasophils/100 WBC (Bld)0.4 %Normal0.2-2.0The [facility] Comment on above:Performed By: #### CBC #### [facility] [address] [place] [address] Dr. Dinah Palacios #0.1 103/ulNormal0.0-0.7The [facility] Health SystemComment on above: Performed By: #### CBC #### [facility] [address] [place] [address] Dr. Dinah Yaposinophils/100 WBC (Bld)1.9 %Normal0.9-7.0The [facility] Comment on above:Performed By: #### CBC #### [facility] [address] [place] [address] Dr. Dinah Yaprythrocyte distribution width (RBC) [Ratio]12.7 %Frwxji14.0-15.0 The [facility] Health SystemComment on above:Performed By: #### CBC #### [facility] [address] [place] [address] Dr. Dinah RodrigesHematocrit (Bld) [Volume fraction]35.0 %Critically low36.0-48.0 The [facility] Health SystemComment on above:Performed By: #### CBC #### [facility] [address] [place] [address] Dr. Dinah RodrigesHemoglobin (Bld) [Mass/Vol]11.5 g/dLCritically low12.0-16.0The [facility] SystemComment on above:Performed By: #### CBC #### [facility] [address] [place] [address] Dr. Dinah Witt #0.01 10e3/ulNormal0.00-0.03The [facility] Health SystemComment on above:Performed By: #### CBC #### [facility] [address] [place] [address] Dr. Dinah Witt %0.2 %Normal0.0-0.5The [facility] Health SystemComment on above: Performed By: #### CBC #### [facility] [address] [place] [address] Dr. Dinah Martin #1.4 103/ulNormal1.2-3.8The [facility] Health SystemComment on above:Performed By: #### CBC #### [facility] [address] [place] [address] Dr. Dinah Bainhocytes/100 WBC (Bld)26.9 %Qrbhia39.5-60.0The [facility] Health SystemComment on above:Performed By: #### CBC #### [facility] [address] [place] [address] Dr. Dinah Page DIFF REQNONormalThe [facility] Health SystemComment on above: Performed By: #### CBC #### [facility] [address] [place] [address] Dr. Dinah Milton (RBC) [Entitic mass]33.0 rbFgsugq69.7-34.0The [facility] Health SystemComment on above:Performed By: #### CBC #### [facility] [address] [place] [address] Dr. Dinah Mcneil (RBC) [Mass/Vol]32.9 g/uRIdufhq88.9-35.2The [facility] Health SystemComment on above:Performed By: #### CBC #### [facility] [address] [place] [address] Dr. Dinah Elizabeth (RBC) [Entitic vol]100.3 fLCritically high81.0-99.0The [facility] SystemComment on above:Performed By: #### CBC #### [facility] [address] [place] [address] Dr. Dinah Cortes #0.4 103/ulNormal0.3-0.8The [facility] SystemComment on above:Performed By: #### CBC #### [facility] [address] [place] [address] Dr. Dinah Gandhiocytes/100 WBC (Bld)7.6 %Normal1.7-12.0The [facility] Comment on above:Performed By: #### CBC #### [facility] [address] [place] [address] Dr. Dinah Brown #3.3 103/ulNormal1.4-6.5The [facility] Health SystemComment on above:Performed By: #### CBC #### [facility] [address] [address] [address] Dinah Darlingutrophils/100 WBC (Bld)63.0 %Spipqz38.0-75.0The [facility] SystemComment on above:Performed By: #### CBC #### [facility] [address] [address] [address] Dinah RodrigesPlatelet mean volume (Bld) [Entitic vol]10.0 fLNormal9.5-13.5The Memorial Health SystemComment on above:Performed By: #### CBC #### [facility] [address] [place] [address] Dr. Dinah RodrigesPLT165 103/ezRulque702-501Qpg [facility] SystemComment on above: Performed By: #### CBC #### [facility] [address] [address] [address] Dinah RodrigesRBC3.49 106/ulCritically low4.20-5.40The [facility] Health SystemComment on above:Performed By: #### CBC #### [facility] [address] [place] [address] Dr. Dinah RodrigesWBC5.3 103/ulNormal4.0-11.0The [facility] Health SystemComment on above: Performed By: #### CBC #### [facility] [address] [address] [address] Dinah Olsen THYROXINE INDEX T7on 99-53-1639NJI6.77Dddbqz7.30-4.50The [facility] SystemCommymichigan medical center on above:Performed By: #### TSH, BNP, T7, LIPID, CMP ####[facility] [address] [address]Dr. Dinah RodrigesT3U34.0 %Qacigs82.0-39.0The [facility] Health SystemComment on above: Performed By: #### TSH, BNP, T7, LIPID, CMP ####[facility] [address] [address]Dr. Dinah RodrigesT4 [Mass/Vol]9.90 ug/dLNormal 4.80-13.90The [facility] on above:Performed By: #### TSH, BNP, T7, LIPID, CMP ####[facility] [address] [address]Dr. Dinah RodrigesGLYCOHEMOGLOBIN A1Con 09-54-9544AOM RECOMMENDATIONSEE BELOW NormalThe [facility] Health SystemCommymichigan medical center on above:Result Comment: ADA RECOMMENDED LIMIT 4.0 - 6.0 ADA THERAPEUTIC TARGET < 7.0 ACTION SUGGESTED > 7.0Performed By: #### A1C ####[facility] Ft[address] [place], [place] [address]Dr.Dinah ChangGlucose [Mass/Vol]103 mg/dLNoBrown Memorial Hospital Comment on above:Performed By: #### A1C ####[facility] Ttdexjif[address] [place], [place] [address]Dr.Dinah RodrigesHbA1c (Bld) [Mass fraction]5.2 %Normal4.5-6.2The [facility] SystemComment on above:Performed By: #### A1C ####[facility] Vvndcujpud[address] [place], [place] [address]Dr. Dinah RodrigesIRONon 97-06-8996Xwas [Mass/Vol]79.0 ug/xPSwybte67.0-170.0The [facility] SystemComment on above:Performed By: #### IRON ####[facility] Epximgyopj[address] [place], [place] [address]Dr. Dinah RodrigesLIPID PROFILE on 33-21-0692KCOS-HDL RATIO NORMSEE BELOWSouthview Medical CenterCommymichigan medical center on above:Result Comment: 3.3 - 4.4 LOW RISK 4.4 - 7.1 AVERAGE RISK 7.1 - 11.0 MODERATE RISK >11.0 HIGH RISKPerformed By: #### TSH, BNP, T7, LIPID, CMP ####[facility] Mjhwvkyq[address] [place], [place] [address]Dr. Yilan ChangCholesterol [Mass/Vol]153 mg/dLNormal<=200The [facility] Comment on above:Performed By: #### TSH, BNP, T7, LIPID, CMP ####[facility] [address] [address]Dr. Lizlan Rodriges Cholesterol in HDL [Mass/Vol]54 mg/cCIlhgbq83-74Ezp [facility] SystemComment on above:Performed By: #### TSH, BNP, T7, LIPID, CMP ####[facility] [address] [address]Dr. Yilan ChangCholesterol in LDL [Mass/Vol]78.8 mg/dLNoBrown Memorial HospitalComment on above:Performed By: #### TSH, BNP, T7, LIPID, CMP ####[facility] Dxxepvehgf[address] [place], [place] [address]Dr. Yilan ChangCholesterol.total/Cholesterol in HDL [Mass ratio]2.8 {ratio}NormalThe [facility] Health SystemComment on above:Performed By: #### TSH, BNP, T7, LIPID, CMP ####[facility] Jtwlgisnyz[address] [place], [place] [address]Dr. Yilan ChangHDL NORMAL> or = 60 mg/dl - LOW CARDIOVASCULAR RISK <40 mg/dl - HIGH CARDIOVASCULAR RISKSouthview Medical CenterComment on above:Performed By: #### TSH, BNP, T7, LIPID, CMP ####[facility] Kmnzqqrcyp[address] [place], [place] [address]Dr. Yilan ChangLDL CALC NORMALSEE BELOWNoBrown Memorial HospitalComment on above: Result Comment: <100 mg/dl OPTIMAL 100 - 129 mg/dl NEAR OR ABOVE OPTIMAL 130 - 159 mg/dl BORDERLINE HIGH 160 - 189 mg/dl HIGH >190 mg/dl VERY HIGHPerformed By: #### TSH, BNP, T7, LIPID, CMP ####[facility] [address] [address]Dr. Yilan ChangTriglyceride [Mass/Vol]101 mg/dLNormal <=150The [facility] SystemComment on above:Performed By: #### TSH, BNP, T7, LIPID, CMP ####[facility] [address] [address]Dr. Yisonia ChangVLDL CALC20.2 mg/dLNoBrown Memorial HospitalComment on above:Performed By: #### TSH, BNP, T7, LIPID, CMP ####[facility] [address] [address]Dr. Yilan ChangMG MAMM SCREEN 3D TENZIN CADon 00-04-6362EX MAMM SCREEN 3D TENZIN CADPatient: NEREIDA AGOSTO Exam Date: 01/20/2022 : 1940 Gender:F Ordering : DR JACINTO KAUR . Admission #: [id number] Family : Order #: [id number] CLICK HERE TO VIEW EXAM RADIOLOGY REPORT [...] Treatments None Family Cancers None LOCATION: [facility] BREAST COMPOSITION: Scattered areas fibroglandular density. FINDINGS: [...] by: Kelsi Monzon MD on 01/20/2022 at 11:33NoBrown Memorial HospitalPROF 14(COMP METB)on 64-40-0241Bvanosm [Mass/Vol]3.3 g/dLCritically low3.4-5.0The [facility] SystemComment on above:Performed By: #### TSH, BNP, T7, LIPID, CMP ####[facility] [address]op[address] [address]Dr. Yilan ChangAlbumin/Globulin [Mass ratio]1.0 {ratio}NormalThe [facility] Comment on above:Performed By: #### TSH, BNP, T7, LIPID, CMP ####[facility] [address] [address]Dr. Yilan ChangALP [Catalytic activity/Vol]69 U/UJaudnj97-443Dgk [facility] SystemComment on above: Performed By: #### TSH, BNP, T7, LIPID, CMP ####[facility] [address] [address]Dr. Yilan ChangALT [Catalytic activity/Vol]6 U/LCritically tth81-60Tvv [facility] SystemComment on above:Performed By: #### TSH, BNP, T7, LIPID, CMP ####[facility] Tcqbnrggcd[address] [place], [place] [address]Dr. Yisonia ChangAnion gap [Moles/Vol]8.7 mmol/LNormal The [facility] Health SystemComment on above:Performed By: #### TSH, BNP, T7, LIPID, CMP ####[facility] Dmznfmmjyh[address] [place], [place] [address]Dr. Yilan ChangAST [Catalytic activity/Vol]12 U/LCritically oss63-76Ayx [facility] SystemComment on above:Performed By: #### TSH, BNP, T7, LIPID, CMP ####[facility] Roiwzditjv[address] [place], [place] [address]Dr. Yilan ChangBilirubin [Mass/Vol]0.3 mg/dLNormal0.2-1.0The [facility] Comment on above:Performed By: #### TSH, BNP, T7, LIPID, CMP ####[facility] Chmudskowb[address] [place], [place] [address]Dr. Yilan Rodriges Calcium [Mass/Vol]9.3 mg/dLNormal8.5-10.1The [facility] SystemComment on above: Performed By: #### TSH, BNP, T7, LIPID, CMP ####[facility] Nynimwyvkg[address] [place], [place] [address]Dr. Yilan ChangChloride [Moles/Vol]104 mmol/LThzcur99-508Ajb [facility] SystemComment on above:Performed By: #### TSH, BNP, T7, LIPID, CMP ####[facility] [address] [address]Dr. Yilan ChangCO2 [Moles/Vol]33.2 mmol/LCritically high 21.0-32.0The [facility] SystemComment on above:Performed By: #### TSH, BNP, T7, LIPID, CMP ####[facility] Idhoqjokcu[address] [place], [place] [address]Dr. Yilan ChangCreatinine [Mass/Vol]1.11 mg/dLCritically high0.55-1.02The [facility] Health SystemCommymichigan medical center on above:Performed By: #### TSH, BNP, T7, LIPID, CMP ####[facility] Hzaynyrwlb[address] [place], [place] [address]Dr. Yilan ChangEGFR-AF KQFZEIAE11 mL/min/1.88s3Lfabplbdyn low>=60The [facility] on above:Performed By: #### TSH, BNP, T7, LIPID, CMP ####[facility] Ygxmnvrror[address] [place], [place] [address]Dr. Yilan ChangEGFR-NON AF ZWBDKJOA74 mL/min/1.10x2Fzhdrnnzfs low>=60The [facility] on above:Performed By: #### TSH, BNP, T7, LIPID, CMP ####[facility] Cnkkkyhsym[address] [place], [place] [address]Dr. Yilan ChangGlobulin (S) [Mass/Vol]3.4 g/dLNormalThe [facility] Health SystemCommymichigan medical center on above:Performed By: #### TSH, BNP, T7, LIPID, CMP ####[facility] Ccbjmeomyv[address] [place], [place] [address]Dr. Yilan ChangGlucose [Mass/Vol]84 mg/dPEfhedb84-431Syu [facility] on above:Performed By: #### TSH, BNP, T7, LIPID, CMP ####[facility] Ezrsaxlovz[address] [place], [place] [address]Dr. Yilan ChangPotassium [Moles/Vol]4.9 mmol/LNormal 3.5-5.1The [facility] SystemComment on above:Performed By: #### TSH, BNP, T7, LIPID, CMP ####[facility] [address] [address]Dr. Dinah ChangProtein [Mass/Vol]6.7 g/dLNormal6.4-8.2[facility] Comment on above:Performed By: #### TSH, BNP, T7, LIPID, CMP ####[facility] Eipjxcjthr[address] [place], [place] [address]Dr. Yilan Rodriges Sodium [Moles/Vol]141 mmol/TYglbej487-800StsFayette County Memorial HospitalComment on above: Performed By: #### TSH, BNP, T7, LIPID, CMP ####[facility] Fwtwgbniqz[address] [place], [place] [address]Dr. Yilan ChangUrea nitrogen [Mass/Vol]18.0 mg/dLNormal7.0-18.0The [facility] SystemComment on above:Performed By: #### TSH, BNP, T7, LIPID, CMP ####[facility] Lobmmmgzrb[address] [place], [place] [address]Dr. Yilan ChangUrea nitrogen/Creatinine [Mass ratio] 16.2 mg/mgSouthview Medical CenterComment on above:Performed By: #### TSH, BNP, T7, LIPID, CMP ####[facility] [address] [address]Dr. Yisonia RodrigesTSHon 49-43-9013PQG9.061 uIU/mLNormal0.358-3.740 [facility] HospitalComment on above:Performed By: #### TSH, BNP, T7, LIPID, CMP ####[facility] Hzgtcnbees[address] [place], [place] [address]Dr. Dinah ChangTSH RANGESEE BELOWSouthview Medical CenterComment on above:Result Comment: <0.34 UIU/ml HYPERTHYROID 0.34-5.60 UIU/ml EUTHYROID >5.60 UIU/ml HYPOTHYROIDPerformed By: #### TSH, BNP, T7, LIPID, CMP ####[facility] [address]gbj[address] [place], [place] [address]Kd. Yisonia ChangXR DEXA BONE DENSITYon 35-72-3373DV DEXA BONE DENSITYEXAMINATION: XR DEXA BONE DENSITY, 01/20/2022 10:40 AM EDT HISTORY: [...] Electronically authenticated by: DUDLEY RYDER Date: 2022-01-20 11:30Southview Medical CenterCardiovascular Lab Reporton [id number] Lab Report [facility] Patient Name: [facility] Nereida Rubin MR #: [id number] Department of Physician: Martha Seymour M.D. Division of Service Date: 12/23/2018 Cardiology Birthdate: 1940 Adult Cardiovascular Room #: [address] [address] Cardiovascular Laboratory Report PROCEDURE: Transesophageal echocardiogram and cardioversion. INDICATION: Atrial fibrillation. FELLOW: Neto Doty MD PROCEDURE IN DETAIL: An informed consent was obtained from the patient after explaining the indication, risks and benefits, and alternatives. The patient understood and agreed and signed the consent form. The patient was brought to the laboratory chief and transesophageal echocardiogram was performed under conscious [...] will follow up with me in the [facility] in 2-4 weeks Electronically Signed by: Goldie Vaughan M.D. 01/05/2019 08:36 A Goldie Vaughan M.D. I was present for the entire procedure. Date Dict: 12/23/2018/03:28 P/Neto Doty MD Date Trans: 12/23/2018 04:19 P/beth DN_[id number] cc: Jacinto Kaur M.D. [address] [facility] [address]DyyfgzFlxOhioHealth Shelby Hospital Cardiovascular Lab Reporton [id number] Lab ReportUnKettering [facility] MR #: [id number] Department of Physician: Martha Ken M.D. Division of Service Date: 12/15/2018 Cardiology Birthdate: 1940 Adult Cardiovascular Room #: [id number] [address] Cardiovascular Laboratory Report CLINICAL PRESENTATION: The patient is a 78-year-old female with past medical history significant for hypertension. She was admitted to [facility] with worsening shortness of breath. She was diagnosed with acute congestive heart failure and atrial fibrillation with a rapid ventricular rate. She was evaluated by my colleague, Dr. Lee, [place] [facility]. EKG showed ST elevations in the anterolateral leads and she was transferred urgently to the [facility] due to possible acute myocardial infarction. [...] ultrasound guidance and micropuncture access technique, a 6-Cymraes sheath placed in the right common femoral [...] are widely patent. Electronically Signed by: Silviano Dia M.D. 12/16/2018 09:18 A Silviano Dia M.D. Date Dict: 12/15/2018/12:51 P/Silviano Dia M.D. Date Trans: 12/16/2018 06:03 Denis/beth [id number]_[id number] cc: Jacinto Kaur M.D. [facility] [address] [facility] [address] Peter Lee M.D. [address] [facility] [address]NzizxzNegOhioHealth Shelby HospitalBASIC METABOLIC PANELon 28-27-9435Qukpcjr [Mass/Vol]9.3 mg/dLNormal8.6-10.3The [facility] HospitalComment on above:Order Comment: No: Do not add to previous drawPerformed By: #### 30746, 79045, 44131, 75169, 42658 #### [facility] [address] [place] [address], USAChloride [Moles/Vol]102 mmol/YMygatg76-749Kkz [facility] HospitalComment on above:Order Comment: No: Do not add to previous drawPerformed By: #### 08786, 57913, 68337, 00561, 20436 #### [facility] [address] [place] [address], USACO2 [Moles/Vol]27 mmol/BJvxcmw51-47Uhp [facility] HospitalComment on above:Order Comment: No: Do not add to previous draw Performed By: #### 53531, 27007, 06827, 00893, 52979 #### [facility] [address] [place] [address], USACreatinine [Mass/Vol]0.91 mg/dLNormal0.60-1.20The [facility] HospitalComment on above:Order Comment: No: Do not add to previous drawPerformed By: #### 12658, 15230, 33852, 62907, 75643 #### [facility] [address] [place] [address], USAGFR/1.73 sq M predicted among blacks MDRD (S/P/Bld) [Vol rate/Area]mL/min/{1.73_m2}Normal>60The [facility] Comment on above:Order Comment: No: Do not add to previous drawResult Comment: Calculation may not be valid for patients over 70 yearsPerformed By: #### 05536, 07043, 91122, 48239, 11985 #### [facility] [address] [place] [address], USAGFR/1.73 sq M predicted among non-blacks MDRD (S/P/Bld) [Vol rate/Area]mL/min/{1.73_m2}Normal>60The [facility] Comment on above:Order Comment: No: Do not add to previous drawResult Comment: Calculation may not be valid for patients over 70 yearsPerformed By: #### 59988, 35191, 82329, 07197, 04657 #### [facility] [address] [place] [address], USAGlucose [Mass/Vol]130 mg/vVUecx54-227Xbm [facility] HospitalComment on above:Order Comment: No: Do not add to previous drawPerformed By: #### 39547, 22857, 34410, 52151, 91257 #### [facility] [address] [place] [address], USAPotassium [Moles/Vol]3.5 mmol/LNormal3.5-5.1The [facility] HospitalComment on above:Order Comment: No: Do not add to previous drawPerformed By: #### 66305, 29522, 60472, 84480, 19702 #### [facility] [address] [place] [address], USASodium [Moles/Vol]140 mmol/IUbavpe756-382Czd [facility] HospitalComment on above:Order Comment: No: Do not add to previous drawPerformed By: #### 88707, 94387, 23019, 30367, 90321 #### [facility] [address] [place] [address], USAUrea nitrogen [Mass/Vol]19 mg/dLNormal7-25The [facility] HospitalComment on above:Order Comment: No: Do not add to previous drawPerformed By: #### 60837, 42960, 38576, 86787, 20100 #### [facility] [address] [place] [address], USABNP (B-TYPE NATRIURETIC PEPTIDE)on 06-01-9778Zzrwrjiudgh peptide B (Bld) [Mass/Vol]369 pg/mLHigh0-100The [facility] HospitalComment on above:Order Comment: No: Do not add to previous drawResult Comment: Given the appropriate clinical setting a BNP result of >100 pg/mL indicates congestive heart failure.Performed By: #### 78864, 64508 #### [facility] [address] [place] [address], [facility] HOSPITALCBC COMPLETE BLOOD COUNTon 37-88-1227Cdrcespxvxg distribution width (RBC) [Ratio]12.9 %Bgnukg24.5-15.0The [facility] HospitalComment on above:Order Comment: No: Do not add to previous draw Performed By: #### 98434 #### [facility] [address] [place] [address], [facility]DIAN HOSPITALHematocrit (Bld) [Volume fraction]39.0 %Rdhdkl15.0-45.0The [facility] HospitalComment on above:Order Comment: No: Do not add to previous drawPerformed By: #### 46379 #### [facility] [address] [facility] [place] [address], USAHemoglobin (Bld) [Mass/Vol]12.6 g/yDAmqxob97.0-15.0The [facility] HospitalComment on above:Order Comment: No: Do not add to previous drawPerformed By: #### 63054 #### [facility] [address] [place] [address], [facility]DI[facility] HOSPITALMCH (RBC) [Entitic mass]31.6 bdWxrzhq93.0-33.0The [facility] HospitalComment on above:Order Comment: No: Do not add to previous drawPerformed By: #### 14984 #### [facility] [address] [place] [address], [facility]DI[facility] HOSPITALMCHC (RBC) [Mass/Vol]32.3 g/fICvvfgk73.0-35.0The [facility] HospitalComment on above:Order Comment: No: Do not add to previous drawPerformed By: #### 10535 #### [facility] [address] [place] [address], USAMCV (RBC) [Entitic vol]97.7 wQPusocm63.0-98.0The [facility] HospitalComment on above:Order Comment: No: Do not add to previous drawPerformed By: #### 34073 #### [facility] [address] [place] [address], USANucleated RBC/100 WBC (Bld) [Ratio]0 %Normal0-0The [facility] HospitalComment on above:Order Comment: No: Do not add to previous drawPerformed By: #### 03633 #### [facility] [address] [place] [address], USAPLAT QJP444 10*3/qKIhimth578-711Xwy [facility] HospitalComment on above:Order Comment: No: Do not add to previous draw Performed By: #### 23182 #### [facility] [address] [place] [address], USARBC (Bld) [#/Vol]3.99 10*6/uLNormal3.80-5.00The [facility] HospitalComment on above:Order Comment: No: Do not add to previous drawPerformed By: #### 46600 #### [facility] [address] [place] [address], USAWBC (Bld) [#/Vol]8.04 10*3/uLNormal4.00-10.60The [facility] HospitalComment on above:Order Comment: No: Do not add to previous drawPerformed By: #### 49025 #### [facility] [address] [place] [address], USAHEMOGLOBIN A1Con 61-33-2468EgV7l (Bld) [Mass fraction]108 mg/iQNaqddr39-594Onm [facility] HospitalComment on above:Order Comment: No: Do not add to previous drawPerformed By: #### 53366, 62899 #### [facility] [address] [place] [address], DXTKbF3u (Bld) [Mass fraction]5.4 %Normal4.0-6.0The [facility] HospitalComment on above:Order Comment: No: Do not add to previous drawPerformed By: #### 86670, 72118 #### [facility] [address] [place] [address], USALIPID PROFILEon 63-92-0368Iwkfbepkrey [Mass/Vol]138 mg/dL Prlayf008-595Hhv [facility] HospitalComment on above:Order Comment: No: Do not add to previous drawResult Comment: CHOLESTEROL REFERENCE RANGE: 20 YEARS AND OLDER CARDIOVASCULAR RISK Less than 200 mg/dl Low Risk 200 to 239 mg/dl Borderline Risk 240 mg/dl and greater High RiskPerformed By: #### 02033, 85559, 67890, 18220, 16567 #### [facility] [address] [place] [address], USACholesterol in HDL [Mass/Vol]36 mg/xZUdhycu16-12Wlq [facility] HospitalComment on above:Order Comment: No: Do not add to previous drawResult Comment: Slight variation in normal range could be due to gender and/or age. HDL CHOLESTEROL REFERENCE RANGE: 20 years and older Cardiovascular Risk > or =60 mg/dL Desirable 40 TO 59 mg/dL Low Risk <40 mg/dL High RiskPerformed By: #### 66214, 46898, 08435, 27485, 38344 #### [facility] [address] [place] [address], USACholesterol in LDL [Mass/Vol]81 mg/dLNormal0-130The [facility] HospitalComment on above:Order Comment: No: Do not add to previous drawResult Comment: LDL IS A CALCULATION LDL IS ONLY VALID IF THE TRIG IS LESS THAN 400.Performed By: #### 55908, 62962, 59350, 44970, 71404 #### [facility] [address] [place] [address], USACholesterol.total/Cholesterol in HDL [Mass ratio]3.8 {ratio}Normal.0-4.5The [facility] HospitalComment on above:Order Comment: No: Do not add to previous drawPerformed By: #### 77625, 41308, 32906, 78996, 06178 #### [facility] [address] [place] [address], USANON-HDL VNVNEWWEWNP685 mg/dLNormalThe [facility] HospitalComment on above:Order Comment: No: Do not add to previous draw Performed By: #### 78349, 13623, 00554, 95857, 72729 #### [facility] [address] [facility] [place] [address], USATriglyceride [Mass/Vol]106 mg/lQDnolxn84-519Lzv [facility] HospitalComment on above:Order Comment: No: Do not add to previous drawResult Comment: TRIGLYCERIDE REFERENCE RANGE: 20 YEARS AND OLDER CARDIOVASCULAR RISK LESS THAN 150 mg/dl LOW RISK 150 TO 199 mg/dl BORDERLINE RISK 200 mg/dl AND GREATER HIGH RISKPerformed By: #### 85038, 19011, 59554, 96759, 02127 #### [facility] [address] [place] [address], USAVLDL CHOL21 mg/dLNormal0-40The [facility] HospitalComment on above:Order Comment: No: Do not add to previous drawPerformed By: #### 37782, 59252, 66832, 23808, 12438 #### [facility] [address] [place] [address], USAMAGNESIUM BLOODon 53-07-9489Xcoxrwpka [Mass/Vol]1.9 mg/dL Normal1.9-2.7The [facility] HospitalComment on above:Order Comment: No: Do not add to previous drawPerformed By: #### 92726, 11593, 41694, 77944, 53935 #### [facility] [address] [place] [address], USAPHOSPHORUS BLOODon 22-44-6532Olvxhhvjd [Mass/Vol]4.5 mg/dL Normal2.5-5.0The [facility] HospitalComment on above:Order Comment: combined requestPerformed By: #### 08512, 03824, 12182, 56383, 05536 #### [facility] [address] [place] [address], USAPORTABLE CHEST 1 VIEWon 66-02-1920CWSXVKFI CHEST [address] [facility] Department of Radiology [address] [place] [id number] Patient Name: NEREIDA AGOSTO : 1940 Sex: F Age: Race: White Pt. Location: [id number] Patient Status: I Ordered Date: 12/15/2018 2:10:00 [...] underlying congestive heart failure Electronically signed by:Bharti Perales. Transcribed by: [id number], User Resident: Electronically Signed by: BHARTI PERALES @ 12/15/2018 03:[address] [facility] HospitalComment on above:Order Comment: R/O PWOUUU7ok 03-96-6160WRN 3RD GENERATION0.86 uIU/mLNormal0.34-5.60The [facility] HospitalComment on above:Performed By: #### 53287, 05424, 18861, 36203, 17339 #### [facility] [address] Vital Signs Date TimeVital SignValuePerforming BcixubgeaKejrprfc21-29-4726 13:04-0400Body mass index (BMI) [Ratio]31.96 kg/m2Meera JONES Work Phone: [facility] HospitalNfgiwtnvdb20-92-2335 13:04-0400Body xalnoa95.78 kgMeera JONES Work Phone: [facility] HospitalMovpdjvryp43-41-2939 13:04-0400Diastolic blood zjcwnatc53 mm[Hg]Meera JONES Work Phone: [facility] HospitalGeghrlcrah74-26-5234 13:04-0400Systolic blood xsyorixb315 mm[Hg]Meera JONES Work Phone: [facility] HospitalZtdehfifhb69-67-4091 08:58-0500Blood Pressure Dorinda Bettencourt [phone]-AsbxrKindred Hospital [facility]ive Gqqoww73-26-1469 08:58-0500Diastolic blood lumvssps01 mm[Hg]Harmony Bettencourt [phone]-Amsiv[address] [place], [place] 1667701-23-2025 08:58-0500Heart rate67 /minMohamad Mouchli [address] [place], [place] 9890301-23-2025 08:58-0500Systolic blood mm[Hg]Mohamad Mouchli [address] [place], [place] 9890301-08-2025 12:40-0500Diastolic blood egbdcpsw51 mm[Hg]Mohamad Mouchli [address] [place], [place] 8505301-08-2025 12:40-0500Heart rate80 /minMohamad Mouchli [address] [place], [place] 8505301-08-2025 12:40-0500 Respiratory rate13 /minMohamad Mouchli [address] [place], [place] 8505301-08-2025 12:40-0516ZaC9% (BldA) [Mass fraction]95 %Heamad Mouchli [address] [place], [place] [address]Comment on above:Result Comment: patient had cold fingers, waveform was suboptimal, no SOB or other signs of respiratory bwanrnwiij39-80-2346 12:40-0500Systolic blood kmhndyam158 mm[Hg]Mohamad Mouchli [address] [place], [place] 8505301-08-2025 12:30-0500 Diastolic blood hotzabrf04 mm[Hg]Mohamad Mouchli [address] [place], [place] 8047501-08-2025 12:30-0500Heart rate80 /minMohamad Mouchli [address] [place], [place] 8505301-08-2025 12:30-0500 Respiratory rate22 /minMohamad Mouchli [address] [place], [place] 8047501-08-2025 12:30-9616DfK1% (BldA) [Mass fraction]96 %Mohamad Mouchli [address] [place], [place] 8047501-08-2025 12:30-0500 Systolic blood bpvvesnr273 mm[Hg]Mohamad Mouchli [address] [place], [place] 8047501-08-2025 12:15-0500 Diastolic blood ttfcuhqq09 mm[Hg]Mohamad Mouchli [address] [place], [place] 8047501-08-2025 12:15-0500Heart rate81 /minMohamad Mouchli [address] [place], [place] 8047501-08-2025 12:15-0500 Respiratory rate22 /minMohamad Mouchli [address] [place], [place] 8047501-08-2025 12:15-2665BbU5% (BldA) [Mass fraction]97 %Mohamad Mouchli [address] [place], [place] 8047501-08-2025 12:15-0500 Systolic blood kwptkplu563 mm[Hg]Mohamad Mouchli [address] [place], [place] 8047501-08-2025 11:43-0500Body gzsmwuwsdws09.16 [degF]Mohamad Mouchli [address] [place], [place] 8047501-08-2025 11:40-0500 Respiratory rate18 /minMohamad Mouchli [address] [place], [place] 8047501-08-2025 11:35-0500 Respiratory rate18 /minMohamad Mouchli [address] [place], [place] 8047501-08-2025 11:30-0500 Respiratory rate18 /minMohamad Mouchli [address] [place], [place] 804[address]01-08-2025 09:33-0500Blood Pressure LocationMohamad Mouchli [facility]01-08-2025 09:33-0500Body jswteeqwcug79.8 [degF]Harmony Bettencourt [facility]10-03-2024 09:46-0400Blood Pressure LocationMonat Bettencourt [phone]-PiogmC[facility]10-03-2024 09:46-0400Diastolic blood vfrtoasy92 mm[Hg]Sarbjitsugey Rut 532-0219Xmsgqk-PteszCleveland Clinic [facility]10-03-2024 09:46-0400Heart rate64 /minMohamad Roseli [phone]-RovxdC[facility]10-03-2024 09:46-0400Respiratory rate16 /minJavidhamad Rut 666-4111Htrfzb-JjwzhCleveland Clinic [facility]10-03-2024 09:46-0400Systolic blood fichhsvm651 mm[Hg]Harmony Bettencourt 233-7773Kqdals-CerpwC[facility] Clinic [facility]07-10-2024 13:44-0400Blood Pressure LocationMichael NILL [phone]-GvpmxPomerene Hospital07-10-2024 13:44-0400Diastolic blood fylbfewv27 mm[Hg]Rashi NILL [phone]-BnfvbPomerene Hospital07-10-2024 13:44-0400Heart rate76 /minMichael NILL 448-7449Fdilqt-KbkksPomerene Hospital07-10-2024 13:44-0400Respiratory rate16 /minMichael NILL 185-8298Zkrhly-SqjwcPomerene Hospital07-10-2024 13:44-0400Systolic blood cshzyfsv037 mm[Hg]Rashi NILKaren [phone]-QkzgxTrihealth Mccull[facility] Hospitalevue05-30-2023 14:45-0400Blood Pressure LocationMichael NILL [facility] Jqwqyzin91-88-0111 14:45-0400Diastolic blood fwcexdef81 mm[Hg]Rashi NILL [facility] Yspqftcj55-56-8208 14:45-0400Heart rate 74 /minMichael NILL General Surgery Jwzcozoq46-62-1760 14:45-0400 Respiratory rate16 /minMichael NILL [facility] Flwjpnqu56-46-0996 14:45-0400Systolic blood ayejwyqh769 mm[Hg]Rashi NILL [facility] Anneliese Encounters Encounter DateEncounter TypeCare ProviderFacilityStart: 65-78-8634qhyocpnmqh Harmony BettencourtFacility:[facility] DHStart: 05-02-2025 End: 40-48-2878Xdftat flowsPieter JONES Work Phone: [facility] OBGYNStart: 05-02-2025 End: 29-56-2365Outmxk flowsPieter JONES Work Phone: [facility] OBGYNStart: 05-02-2025 End: 13-32-2505Wccbxun encounter procedureMeera JONES Work Phone: [facility] HealthcareStart: 05-02-2025 End: 02-81-5002Koqruouj preventive med est patient 65yrs& olderMeera JONES Work Phone: [facility] OBGYNComment on above:Tinea (Primary Dx); Well woman exam with routine gynecological exam; Encounter for screening mammogram for malignant neoplasm of breast; Vaginal dryness, menopausalStart: 05-02-2025 End: 38-49-1143dmibdolafxYEB RAMEYNot AvailableStart: 02-15-2025 End: 81-56-9858lywqexwgbdTJVQLOM [facility] Hospitaltart: 11-15-2024 End: 85-10-8311Mrlhhrdlk Result EncounterMeera Grierkody JONES Work Phone: NOMT External Department UnsolicitedStart: 11-15-2024 End: 52-54-3859Vjgovxbul Result EncounterMeera Grierkody JONES Work Phone: noms External Department UnsolicitedStart: 09-28-2024 End: 15-86-2975fbuhecvxabDbskmia A. MouchliFacility:[facility] DHStart: 09-28-2024 End: 44-62-0057Curnexi encounter procedureMohamad ASimran Mouchli [phone]-WzretKindred Hospital [facility] Start: 09-13-2024 End: 73-16-7504invebdeomkUqnovct A. MouchliFacility:FTMCStart: 09-13-2024 End: 90-73-3134Raxymur encounter procedureMohamad A. Mouchli [facility] Start: 50-19-9436inlwizwexfPcmieoa Rut Facility:[facility]tart: 06-08-2024 End: 39-44-9771fatzncujnaEnevead A. MouchliFacility:[facility] DHStart: 06-08-2024 End: 32-67-8621Dpycbtn encounter procedureMohamad A. Mouchli [phone]-ZnsdqKindred Hospital [facility] Start: 05-10-2024 End: 33-21-5425cqmixzvtvoVeuvouu R NILLFacility: BellevueStart: 05-10-2024 End: 16-24-5031Vtoofzl encounter procedureMichael R NILL [phone]-Lhmsr General Surgery Anneliese start: 04-26-2024 End: 94-60-7460kxezzrtdgcNelxzbu R [facility]illBl[facility]ard [facility] Work Phone: Start: 04-26-2024 End: 40-40-5100Aitfyyrl ReferredMD Rashi Nill Work Phone: [facility]-LAB Path Spec [facility] HospStart: 04-26-2024 End: 55-89-2666tjofjtnnuiOmklppb R NILLFacility::[id number]: 03-15-2024 End: 74-57-2978oefjuxfnznHhyzawq R NILLFacility:[facility]ueStart: 03-15-2024 End: 12-54-8992Ufxljnl encounter procedureMichael R NILL [phone]-Ghrmt General Surgery [place] Start: 03-05-2023 End: 72-35-3024Bcliqgs encounter procedureMichael R NILL General Surgery Nill/Said Anneliese Start: 02-02-2023 End: 62-15-3721Wgysalq encounter procedureMichael R NILL General Surgery Nill/Said [place] Start: 65-64-2271wjadgtxrybVK JACINTO HOY .Facility: Start: 01-19-2023 End: 35-63-4605pbunucrtvxXM JACINTO HOY .Facility:K3Imdfi: 01-18-2023 End: 93-03-7672ktudzneactLP JACINTO HOY .Facility:B1Bbfzu: 01-20-2022 End: 88-50-0120qbumuaszxgJT JACINTO HOY .Facility:V4Nhyxh: 12-23-2018 End: 04-81-8590Sjfcjxu encounter procedureEHAB A MIKKIYFacility:UTMCStart: 12-15-2018 End: 00-40-6959Yckfisnfyv and management of inpatientDADEBBIE LEE Facility:[facility] Procedures DateProcedureProcedure DetailPerforming ClinicianStart: 34-13-3261MPJ Shaun JONES Work Phone: Start: 19-26-5539HHU Eloise JONES Work Phone: Start: 30-41-0518BndauywvkyfScsdskm Mouchli Start: 83-60-5567BnbhiziiqmeQppdzdd NILL Start: 86-69-3432PorjieapqypUxjkxbm NILL Start: 41-93-9993DQOBVPMDZRV OF MULTIPLE CORONARY ARTERIES USING OTH CONTRASTRAJESH GUPTAStart: 14-80-5640WLLUHOD CARDIAC SAMPL \T\ PRESSURE, BILATERAL, PERCRAJESH GUPTAStart: 02-80-7210QCKKUNGKCYX OF ARTERIAL FLOW, PULMONARY, PERC APPROACHRAJESH GUPTACardiac fluoroscopyMichael NILL Closed fracture of hip (disorder)Rashi NILL Ligation of fallopian tubeMichael NILL Plan of Treatment DateCare ActivityDetailAuthorStart: 44-97-9475Sjxftprqm vaccinationInfluenza Vaccine (#1)[facility] HealthcareStart: 05-02-2025 End: 98-36-2216YJ Breast - bilateral ScreeningBilateral screening mammogram Imaging Routine Encounter for screening mammogram for malignant neoplasm of breast Expected: 05/02/2025, Expires: 07/02/2026[facility] Work Phone: comment on above:Expected: 05/02/2025, Expires: 07/02/2026Start: 05-02-2025 End: 96-69-4775Chenoxn encounter judkdgmab61/27/2025 1:00 PM EDT Procedure Visit [facility]Cl[facility] [address] [place] [address] Meera Jimenez PA [address] [place] [address] ArrivedNOMS Coy OBGYNComment on above:ArrivedStart: 04-04-2025 End: 23-56-4931Gfglosk encounter sqmioukwy84/30/2025 11:00 AM EDT Office Visit [facility] [address] [phone] Meera Jimenez PA [address] [place] [address] NOMS BCP OBStart: 42-51-4234Eppaqmkxi vaccinationInfluenza Vaccine (#1)[facility] HealthcareStart: 18-29-6553CdmxlxbxlSub[facility] Immunizations Immunization DateImmunizationNotesCare RbktsvezUnbgnhpm92-42-6820ywshffjnk virus vaccine, unspecified formulationMichael NILL General Surgery Qdhorkfq89-98-3097ZJJL-YnQ-6 (COVID-19) mRNA-1273 vaccineMichael NILL General Surgery Capdzpov62-40-9261QYFH-FjR-8 (COVID-19) mRNA-1273 vaccineMichael NILL General Surgery Hqnzrcag08-65-3428EPNP-VbM-5 (COVID-19) mRNA-1273 vaccineMichael NILL General Surgery Usoboqpl38-29-5782ratlcknij virus vaccine, unspecified formulationMohamad Mouchli [phone]-FplbtKindred Hospital [facility] Dig[facility]ive Fthtqk11-34-8168 pneumococcal conjugate vaccine, 13 valentMohamad Mouchli 087-3913Ejkzpj-EutucC[facility] Clinic [facility]10-24-2016 influenza, unspecified formulationMohamad Mouchli 296-8190Kdopwv-JkzxnKindred Hospital [facility] Hdxsex53-56-0767 pneumococcal polysaccharide vaccine, 23 valentMohamad Mouchli 190-9383Bqweho-RafgkKindred Hospital Dayton Digestive HealthNEGATED: Highlighted row has not occurred!20-70-3959saenszwep virus vaccine, unspecified formulationMohamad Mouchli [phone]-MsmbqKindred Hospital Dayton Digestive HealthNEGATED: Highlighted row has not occurred!14-67-7910ujrttwape virus vaccine, unspecified formulationMohamad Mouchli [phone]-SyiixKindred Hospital [facility] Payers DatePayer CategoryPayerPolicy [id number]'s [id number] ([facility]) .[id number] [id number] 2007MedicareMEDICARE .[id number]1-58-5885Cudetqdegf of Defense ( and others)[id number] [id number] 1942Unknown [id number] 2.16.840.1.108602.3.57[id number] 2.16840.1.614288.3.57[id number] 2.16840.1.759994.3.57[id number] 2.16840.1.257468.3.57[id number] 2.840.1.559725.3.57[id number] 2.840.1.925801.3.57[id number] 2.16840.1.671563.3.57[id number] 2.840.1.644376.3.57[id number] 2.840.1.414978.3.579.2.[id number] 2.840.1.027011.3.57[id number] 2.16840.1.892720.3.57[id number] 2.16840.1.334863.3.57[id number] 2.16840.1.458234.3.57[id number] 2.16840.1.624814.3.579.2.1259Department of Defense ( and others) [id number]-[id number] 2.16.840.1.882430.3.579.2.531 Social History DateTypeDetailFacilityStart: 02-02-2023 End: 94-06-4718Ohupxaf smoking statusEx-smoker (finding)General Surgery [place] Tobacco smoking statusNeverGeneral Surgery BellevueSex Assigned At BirthCleveland Clinic Mercy Hospitaltart: 83-09-7427Yfzqxdg smoking status NHISNever smoked tobacco (finding)[facility]ontart: 91-91-0492Hht Assigned At [facility] HospitalTobacc smoking status NHISTobacco smoking consumption unknownMOUNTAIN POINT [facility] HealthcareStart: 01-88-8350Wwu assigned at birthNot on [facility] Medical Equipment Procedure CodeEquipment CodeEquipment Original TextEquipment IdentifierDates Orthopaedic bone screw, non-bioabsorbable, non-sterile()[id number] FDA Start: 59-57-5041Atkcp nail, sterile()[id number] FDA Start: 09-42-9952Vnvgkp blade()[id number] FDAStart: 56-66-7409Szihoyg Unknown 09/13/24 Non Biological UnknownFDAStart: 01-70-9135JKP Start: 52-24-6110Nkcqheh Unknown 09/13/24 Non Biological UnknownFDAStart: 99-36-1343SLXKdqsq: 09-13-2024 Functional Status CoysBnrumatdonLbqisgIhzhuptk35-01-4840Tdlknqzndm StatusN/[facility] Uqhwvo87-21-2815Ufvqccwyil StatusN/[facility]10-03-2024Functional StatusN/[facility] Health 45-81-9269Hgszlsdojb StatusN/[facility] General Surgery Zufmymqy25-80-2251 Functional StatusN/AGeneral Surgery [place] Clinical Notes 09-13-2024 to 05-02-2025 Note Date & ZywhXdeqQckuycbc89-71-6806 History of Present illness Narrative* Lady Chappell, CAR CLEANING SUPERVISOR - 05/02/2025 1:00 PM EDT Reason for Appointment: Patient ID: Nereida Agosto [...] 25 mg, Oral, Every morning nystatin (Mycostatin) 668963 UNIT/GM powder Topical, 3 times daily spironolactone (ALDACTONE) 12.5 mg, Oral, Daily RT Synthroid 50 mcg, Oral, Daily before breakfast ALLERGIES Allergies Allergen Reactions Alprazolam Unknown Sulfa Antibiotics Other, Unknown and Rash PROBLEMS Active Ambulatory Problems Diagnosis Date Noted Osteoporosis, post-menopausal 04/13/2024 Resolved Ambulatory Problems Diagnosis Date Noted No Resolved Ambulatory Problems Past Medical History: Diagnosis Date A-fib ([facility]) Takotsubo cardiomyopathy HISTORY PAST MEDICAL HISTORY SOCIAL [...] nursing note reviewed. Exam conducted with a reprographics technician present. Vitals: Estimated body mass index is 31.96 kg/m as calculated from the following: Height as of 08/05/23: 4' 11 . Weight as of this encounter: 158 lb 4 oz. BP: 110/72 No LMP recorded (lmp unknown). Patient is postmenopausal. ASSESSMENT & PLAN ICD-10-CM 1. Tinea B35.9 nystatin (Mycostatin) 817466 UNIT/GM powder 2. Well woman exam with [...] of: Lady Chappell NP documented in this encounterNOMS Axaokjydfd24-15-6892 NotePlease let her know her lung function testing appears worse than previously that I have available for review. Please refer her to pulmonary for further evaluation. [facility]06-12-2025 Note Cardiology [facility] Note SUBJECTIVE Chief Complaint Patient presents [...] has an apt this afternoon with Dr. Kaur. States her BOOTH remains unchanged. She has [...] bruit. Comments: No JVD (more content not included)...[facility]06-12-2025 Note Patient is here today for a 1 year follow up. Patient states, she is losing her balance, fatigue, SOB,and BOOTH. Review of Systems Constitutional: Positive for malaise/fatigue. Cardiovascular: Positive for dyspnea on exertion. Respiratory: Positive for shortness of breath. Neurological: Positive for loss of balance.[facility] 09-17-2024 NoteProgress Note-Physician Patient: NEREIDA AGOSTO Age: 84 years [...] list: All Problems Osteoporosis / SNOMED CT 402266979 / Confirmed Positive fecal occult blood test / SNOMED CT 32680623 / Confirmed Obesity due to excess calories / SNOMED CT 0134083883 / Confirmed LVH (left ventricular hypertrophy) / SNOMED CT 00998790 / Confirmed Left atrial enlargement / SNOMED CT 1495758309 / Confirmed Hypothyroidism / SNOMED CT 22245004 / Confirmed HTN (hypertension) / SNOMED CT 1444883467 / Confirmed Personal history of colonic polyps / SNOMED CT 7532713973 / Confirmed History of colon cancer / SNOMED CT 4858060389 / Confirmed Lower extremity edema / SNOMED CT 546854288 / Confirmed Congestive heart failure / SNOMED CT 10825080 / Confirmed Cardiomyopathy / SNOMED CT 609359465 / Confirmed Cardiomegaly / SNOMED CT 32556887 / Confirmed BMI 32.0-32.9,adult / SNOMED CT 816179140 / Confirmed A-fib / SNOMED CT 23163724 / Confirmed Aortic valve regurgitation / SNOMED CT 871091661 / Confirmed Tubulovillous adenoma of colon / SNOMED CT 0427006509 / Confirmed Histories Procedure history: Colonoscopy (494907956) on 04/26/2024 at 84 Years. Colonoscopy (494198527) on 02/24/2023 at 82 Years. Tubal ligation (716474344). Closed fracture of hip (946788149). Cardiac fluoroscopy (842675208). Social History Social & Psychosocial Habits Alcohol [...] adequate air exchange. Cardiovascular: Regular rhythm. Plan [place] [employer] Anesthesiologists (ASA) physical status classification: Class III. Anesthetic Preoperative Plan: Anesthesia General.[facility] Comment on above:Result Comment: Electronically Signed By: Whalen Jr DO, Jim A\.br\Date and Time Signed: 09/17/24 21:40 CNO76-23-1101 NoteProgress Note-Physician Patient: NEREIDA AGOSTO Age: 84 years [...] Discharge when meets criteria ( To home ).[facility]Comment on [facility]:Result Comment: Electronically Signed By: Jim Whalen Jr, DO\Date and Time Signed: 09/17/24 21:40 EST 09-13-2024 Hospital Discharge instructions Patient Education 09/13/2024 12:22:03 Colonoscopy, Care After Surgery Salam (CUSTOM) Colonoscopy Care After Surgery Please read the instructions outlined below and refer to this sheet in the next few weeks. These discharge instructions provide you with general information on caring for yourself after you leave thespital. Your doctor may also give you specific [...] Heavy or fried foods are harder to digestand may make you feel nauseated (sick to [...] may be a round bump or a mushroom-shapedgrowth. You could have one polyp or more [...] smoking cigarettes, drinking too much alcohol, not gettingenough exercise, and eating a diet that is [...] contain nicotine or tobacco, such as cigarettes, e- cigarettes, and chewing tobacco. If you need help [...] hard liquor (44 mL). General instructions Take yhbe-nel-byylqwo and prescription medicines only as told by [...] provider. Document Revised: 12/11/2020 Document Reviewed: 12/11/2020 [employer] Patient Education 2023 [employer]. 09/13/2024 12:21:59 Hemorrhoids, Ddud-ol-Likq Hemorrhoids Hemorrhoids are swollen veins that may [...] Follow these instructions at home: Medicines Take dtvt-rdw-emwpdfg and prescription medicines only as told by [...] 3 4 times a day. You may dothis in a bathtub. You may also use [...] provider. Document Revised: 05/05/2023 Document Reviewed: 05/05/2023 [employer] Patient Education 2023 [employer]. Follow Up Care 06/08/2024 10:51:59 With:Rut AHMADI, SHANE Guerrero, [facility] Address: [facility] [address], [address] [place] [phone] Business (1) When: Unknown Comments:-Office to call for pathology results. Call for any problems. [phone] [facility] 01-08-2025 NotePatient Education - Text Colonoscopy Care After Surgery Please read the instructions outlined below and refer to this sheet in the next few weeks. These discharge instructions provide you with general information on caring for yourself after you leave thespital. Your doctor may also give you specific [...] Heavy or fried foods are harder to digestand may make you feel nauseated (sick to [...] these instructions at home: Medicines ??? Take mbsl-inx-mimqzvp and prescription medicines only as told by [...] hard when you poop. (more content not included)...[facility] No data available for this section General Surgery [place] Evaluation + Plan note Future Appointments Appointment Date:09/13/2024 11:00:00 AM Scheduled Provider: Location:[facility] Services Appointment Type:Surgery Appointment Date:09/27/2024 12:15:00 PM Scheduled Provider:Harmony Bettencourt MD [facility] Follow Up [facility] Evaluation + Plan note Future Appointments Appointment Date:09/28/2024 08:30:00 AM Scheduled Provider:Harmony Bettencourt MD Location[facility] Appointment Type:[facility] Follow Up [facility] Evaluation + Plan note Future Appointments Appointment Date:10/01/2025 12:15:00 PM Scheduled Provider:Harmony Bettencourt MD Location:[facility] Appointment Type[facility] Follow Up [facility] evaluation noteNo assessment information available [facility] Work Phone: evaluation note* Diagnosis Tinea- Primary Dermatophytosis of unspecified site Well woman exam with routine gynecological exam Routine gynecological examination Encounter for screening mammogram for malignant neoplasm of breast Vaginal dryness, menopausal documented in this encounter [facility] Discharge instructions No data available for this section General Surgery [place] Progress note No data available for this section General Surgery [place] Summary Purpose Family History No Family History [...] 018 2:51pm Hospital Course Note MR#: [id number] [...] was [facility] to the ER. Apparently in [facility], the patient was found to have decompensated heart failure with new onset of atrial fibrillation. She was in rapid ventricular response. The patient was admitt (more content not included)... Additional Source Comments INFORMATION SOURCE (unrecogn ized section and content) DATE CREATED AUTHOR 04/29/[address] [facility] DATE CREATED AUTHOR AUTHOR'S ORGANIZ ATION 01/19/2023 [facility] DATE CREATED AUTHOR AUTHOR'S ORGANIZ ATION 05/04/2024 [facility] DATE CREATED AUTHOR AUTHOR'S ORGANIZ ATION 09/20/2024 [facility] DATE CREATED AUTHOR AUTHOR'S ORGANIZ ATION 09/30/2024 [facility] DATE CREATED AUTHOR AUTHOR'S ORGANIZ ATION 05/04/2025 [facility] EPIC DATE CREATED AUTHOR AUTHOR'S ORGANDELTA ATION 06/12/[address] [facility] Patient Care team informatio n (unrecognized section and content) Team Status: Inactive Member Role Status Dates Rashi John MD FACS Attending Provider Active Start: April 26, 2024 End: April 26, 2024Team MemberRelationshipSpecialtyStart DateEnd Date Jacinto Kaur MD [address] [place] [address] PCP - [facility]04/06/23Team MemberRelationshipSpecialtyStart DateEnd Date Jacinto Kaur MD [address] [facility] [place] [address] [phone] PCP - [facility]04/06/23Team MemberRelationshipSpecialtyStart DateEnd Date Jacinto Kaur MD [address] [facility] [place] [address] PCP - [facility]04/06/23 Goals (unrecognized section and content) Goals may be documented in a n alternate section Reason for Visit (unrecogniz ed section and content) ReasonCommentsWell Women Visit FOR RECORDS PERTAINING TO PATIENTS [...] BE BASED ON THE PRIMARY CLINICAL RECORDS. [employer] provides no warranty or guarantee of the accuracy or completeness of information in this document.
--- OUTSIDE RECORDS SUMMARY | 2025-07-03 12:12 | XMS_ITS | Patient Health Record ---
Author Organization [facility] Address [address] [place] [address] Care Team Providers Care Power Cutting Machine Operator Name Role Phone Manuel Kaur Primary Care Provider [phone] Allergies Allergen (clinical drug ingredient) Drug/Non Drug Allergy documented on EMR Reaction Allergy Type Onset Date Status alprazolam Xanax unknown Drug Allergy ActiveSubstance with sulfonamide structure and antibacterial mechanism of action (substance)Sulfa AntibioticsUnknownDrug AllergyActive Results Component Value Reference Range Notes CALCIUM Reviewed date:11/15/2024 12:47:01 PM Interpretation: Performing Lab: Notes/Report: [facility] , Calcium 9.4 8.5-10.1 mg/dL Performing Lab:see noteML - [facility] LBCREATININE Reviewed date:11/15/2024 12:47:01 PM Interpretation: Performing Lab: Notes/Report: [facility] ,Creatinine1.320.55-1.02 mg/dLEstimated GFR ( Qfqxpqx60>=60 mL/min/1.73m 2Estimated GFR (Non- Ame39>=60 mL/min/1.73m 2Performing Lab:see noteML - [facility] LBCA echo doppler complete Reviewed date:11/15/2024 12:47:01 PM Interpretation: Performing Lab: Notes/Report: Source Facility: [facility]-[address] [place] [address] [place] [address] Cardiology Report Signed Patient: NEREIDA AGOSTO MR#: [id number] : 1940 Acct:[id number] Age/Sex: 84 / F ADM Date: 11/15/24 Loc: CARD Attending Dr: Goldie Waldrop M.D. Ordering Physician: Goldie Waldrop M.D. Date of Service: 11/15/24 Procedure(s): CA echo doppler complete Accession Number(s): [id number] cc: Goldie Waldrop M.D.; Jacinto Kaur M.D. Patient Name: NEREIDA AGOSTO MR#: [id number] : 1940 Exam Date: 11/15/2024 Ordering Doctor: [...] Signed By: 11/15/24 1206 DD/ 1204 TD/TT: Development Writer:HEMOGLOBIN Reviewed date:02/28/2025 09:07:51 PM Interpretation: Performing Lab: Notes/Report: [facility] ,Hupztkxeok95.812.0-16.0 g/dLPerforming Lab:see noteML - [facility] LBRT pulmonary function test Reviewed date:03/01/2025 07:21:19 PM Interpretation: Performing Lab: Notes/Report: Source Facility: [facility]-[address] [place] [address] [place] [address] Respiratory Report Signed Patient: NEREIDA AGOSTO MR#: [id number] : 1940 Acct:[id number] Age/Sex: 84 / F ADM Date: 02/28/25 Loc: CARD Attending Dr: KHANG LORENZO APRN Ordering Physician: KHANG LORENZO APRN Date of Service: 02/28/25 Procedure(s): RT pulmonary function test Accession Number(s): [id number] cc: [facility] Test Date: 2025-02-28 Pat Name: NEREIDA AGOSTO Department: Room: - 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 Findings were considered accurate and reproducible, with exception of DLCO which did not meet ATS standards. Both pre- and post-bronchodilator values utilized for spirometry. Spirometry (based on pre-bronchodilator values): -FEV1/FVC: Normal @ 75% -FEV1: Moderately reduced @ 65% -FVC: Moderately reduced @ 63% -There is no significant bronchodilator response. Lung volumes by plethysmography (based on pre-bronchodilator values): -RV: Increased @ 132% -TLC: Normal @ 101% -Airway resistance: Increased -Airway conductance: Decreased Diffusion capacity: -DLCO: Severe reduction @ 49% when corrected for Hb 13.8g/dL Prior testing from 08/19/2021: -Decline from FEV1 86%, FVC 84% -Unchanged TLC 100% -Marked decline in DLCO from 75% Impressions: -Non-diagnostic spirometry, normal total lung capacity, and severe diffusion impairment. When compared to prior testing there is a mild worsening in spirometry and marked decline in DLCO, though the patient did not meet ATS standards for repeatability and acceptability. This could suggest development or worsening of cardiopulmonary vascular disorders, concomittant emphysema, or interstitial lung disease. Clinical correlation required. Electronically Signed On 03-01-2025 15:57:04 EDT by Lawrence Wong Dictated By: Lawrence Wong D.O. Signed By: 03/01/25 1557 DD/ 0907 TD/TT: Development Writer:INDIRA echo doppler complete Reviewed date:06/02/2025 02:24:26 PM Interpretation: Performing Lab: Notes/Report: Source Facility: [place] [address] Cardiology Report Signed Patient: NEREIDA AGOSTO MR#: [id number] : 1940 Acct:[id number] Age/Sex: 85 / F ADM Date: 06/01/25 Loc: CARD Attending Dr: KHANG LORENZO APRN Ordering Physician: KHANG LORENZO APRN Date of Service: 06/01/25 Procedure(s): INDIRA echo doppler complete Accession Number(s): [id number] cc: Jacinto Kaur M.D.; KHANG LORENZO APRN Patient Name: NEREIDA AGOSTO MR#: [id number] : 1940 Exam Date: 06/01/2025 Ordering Doctor: KHANG LORENZO ASPHALT HEATER OPERATOR ECHOCARDIOGRAM REPORT PROCEDURE: CA ECHO DOPPLER COMPLETE INDICATIONS: Palpitations, A fib, Shortness of breath COMPARISON: None. DESCRIPTION: COMPLETE ECHOCARDIOGRAM Real-time transthoracic echocardiography with 2D, M-mode, spectral and color flow Doppler performed. QUALITY: Technical quality was good. LEFT VENTRICLE: Normal chamber size. Mild concentric left ventricular hypertrophy. Global left ventricular systolic function is normal. LV EF: Visual estimation of left ventricular ejection fraction is 55-60%. DIASTOLIC: Not adequately assessed due to heart rhythm. ATRIAL SEPTUM: LEFT ATRIUM: Severe dilatation. RIGHT ATRIUM: Moderate dilatation. RIGHT VENTRICLE: Normal chamber size. Normal right ventricular systolic function. TRICUSPID VALVE: Normal mobility and thickness. No stenosis with trivial regurgitation. No evidence of pulmonary hypertension. RVSP 30 mmHg. MITRAL VALVE: Normal mobility and thickness. No evidence of mitral valve stenosis. Mild mitral regurgitation. AORTIC VALVE: Normal trileaflet appearance. No visible sclerosis. Normal leaflet mobility. No evidence of aortic valve stenosis. No aortic regurgitation. AORTIC ROOT: Normal diameter and appearance measuring 3.3 cm. The ascending aorta is normal in size measuring 3.6 cm. PULMONIC VALVE: Normal thickness and mobility. No stenosis. Trivial regurgitation. PERICARDIUM: No evidence of pericardial effusion. IVC: Collapses with inspiration. Normal size. PLEURA: CONCLUSION: 1. Mild concentric left ventricular hypertrophy with normal systolic function. Estimated LVEF is 55 to 60%. 2. Normal right ventricular size and systolic function. 3. Moderate to severe biatrial dilatation. 4. Mild mitral regurgitation. 5. Normal right-sided pressures. Adult Echocardiography Procedure Report Left Ventricle LVEDD (3.7 - 5.6 cm): 3.55 cm LVESD (2.2 - 4.0 cm): 2.32 cm LVIVS thickness (0.6 - 1.2 cm): 1.25 cm LVPW thickness (0.5 - 1.0 cm): 1.20 cm e': 0.11 m/s E - e': 6.90 LVOT Max Gradient: 1.82 mm[Hg] LVOT Area (cm2): 0.67 m/s Peak Velocity (LVOT): 0.67 m/s Mean Velocity (LVOT): 0.47 m/s LVOT Diameter 1.85 cm Left Ventricular Ejection Fraction: 55-60 % Left Atrium LA Volume Index (2D A2C): 49.53 ml/m2 Left Atrium Systolic Dimension: 4.41 cm Mitral Valve Mitral Valve E-Wave Peak Velocity: 0.76 m/s Right Ventricle RV Internal Diastolic Dimension: 2.51 cm, 2.84 cm Aorta AO Root Diam: 3.28 cm Ascending Ao Diam: 3.60 cm Aortic Valve AoV Area (Peak Will): 2.11 cm2, 2.11 cm2 AoV Area (VTI): 2.26 cm2, 2.26 cm2 Peak Velocity(Antegrade Flow): 0.86 m/s Peak Gradient(Antegrade Flow): 2.95 mm[Hg] Mean Velocity(Antegrade Flow): 0.60 m/s Mean Gradient(Antegrade Flow): 1.60 mm[Hg] Velocity Time Integral: 14.73 cm Tricuspid Valve Peak Velocity (Regurgitant Flow): 2.39 m/s, 2.62 m/s, 2.36 m/s Pulmonic Valve Peak Velocity: 0.70 m/s Peak Gradient: 2.02 mm[Hg], 1.86 mm[Hg] Right Atrium Right Atrium Systolic Pressure: 39.14 ml, 39.14 ml Dictated by: Khushi Nathan M.D. on 06/01/2025 at 16:49 Approved by: Khushi Nathan M.D. on 06/01/2025 at 16:51 Dictated By: KHUSHI NATHAN Signed By: 06/01/251652 DD/ 50 TD/TT: Development Writer:MM tomosynthesis screening BI Reviewed date:01/27/2025 11:52:30 AM Interpretation: Performing Lab: Notes/Report: Source Facility: [place] [address] Mammography Report Signed Patient: NEREIDA AGOSTO MR#: [id number] : 1940 Acct:[id number] Age/Sex: 84 / F ADM Date: 01/26/25 Loc: MAMMO Attending Dr: Jacinto Kaur M.D. Ordering Physician: Jacinto Kaur M.D. Results: Date of Service: 01/26/25 Follow Up: Procedure(s): MM tomosynthesis screening BI Accession Number(s): [id number] cc: Jacinto Kaur M.D. Patient Name: NEREIDA AGOSTO MR#: [id number] : 1940 Exam Date: 01/26/2025 Ordering Doctor: DR JACINTO KAUR . RADIOLOGY REPORT PROCEDURE: MM TOMOSYNTHESIS SCREENING BI COMPARISON: MM TOMOSYNTHESIS SCREENING BI, 01/26/2024. MG MAMM SCREEN 3D TENZIN CAD, 01/21/2023. MG MAMM SCREEN 3D TENZIN CAD, 01/20/2022. MG MAMM TENZIN SCRN W CAD DIG, 08/02/2015. INDICATIONS: Screening Calculator Name NCI Breast Cancer Risk Assessment Tool 5 Year Breast Cancer Risk Not Reported. Lifetime Breast Cancer Risk Not Reported. Personal Breast Cancer No Personal Ovarian Cancer No Treatments None Family Cancers None LOCATION: [facility] BREAST COMPOSITION: There are scattered areas of fibroglandular density. FINDINGS: RIGHT BREAST: No significant suspicious finding. Benign-appearing calcifications are present. Benign-appearing lymph nodes are noted along the chest wall. There are similar focal asymmetries. LEFT BREAST: No significant suspicious finding. Benign-appearing calcifications are present. Benign-appearing lymph nodes are noted along the chest wall. There are similar focal asymmetries. DIAGNOSTIC CATEGORY 2--BENIGN FINDING. NO CHANGE FROM COMPARISON. RECOMMENDATIONS: ROUTINE MAMMOGRAM AND CLINICAL EVALUATION IN 12 MONTHS. PLEASE NOTE: A NORMAL MAMMOGRAM DOES NOT EXCLUDE THE POSSIBILITY OF BREAST CANCER. A CLINICALLY SUSPICIOUS PALPABLE LUMP SHOULD BE BIOPSIED. Dictated by: Jeremy Munoz MD on 01/26/2025 at 17:02 Approved by: Jeremy Munoz MD on 01/26/2025 at 17:06 Dictated By: Jeremy Munoz M.D. Signed By: 01/26/25 1708 DD/ 06 TD/TT: Development Writer: Reason For Referral Diagnosis 1 Unsteady gait (R26.8 1) Referral Organization [facility] Referring Provider First Name Manuel Referring Provider Last Name Renzolouis Referring Provider Speciality Family Med icine Referred Provider [facility], Physical Therap y Referred Provider Specialty Physical The rapist Referral Priority Routine Medications Medication SIG (Take, Route, Frequency, Duration) Notes Start Date End Date Status Potassium Chloride ER 20 MEQ 1 tablet with food Orally Once a day ActiveSpironolactone 25 MG1/2 tablet Oral twice daily; Duration: 90 daysActive Lisinopril 10 MG1 tablet Orally Once a dayActiveMeclizine HCl 25 mgTAKE 1 TABLET TWICE A DAY; Duration: 7 daysPRNActiveFerrous Sulfate 325 (65 Fe) MG1 tablet Orally every other day5ActiveLevothyroxine Sodium 50 MCGTAKE 1 TABLET DAILYActiveCarvedilol 12.5 mgTAKE 1 TABLET TWICE A DAYActiveEliquis 5 mgTAKE 1 TABLET TWICE A DAYActiveAlendronate Sodium 70 mgTAKE 1 TABLET ONCE A WEEK 30 MINUTES BEFORE THE FIRST FOOD, BEVERAGE, OR MEDICINE OF THE DAY WITH PLAIN WATER ActiveCalcium 600 MG1 tablet with meals Orally Twice a dayActiveVitamin D 25 MCG (1000 UT)1 tablet Orally Once a dayActive Immunizations Vaccine Route Administration Date Status Comme nts Flu, -historic- Novel H1N1-0 9, preservative free Unknown 09/14/2009 Administered Flu, -historic- Novel G6I8-42, preservative efdaXfrocfw04/09/2010dministered Flu, Fluad (36639) 65 yrs and older, single-dose syringe (4121-3420)Unknown 07/11/2020AdministeredFlu, Fluad (52818) 65 yrs+, single-dose syringe (3945-9017)Cggcftz7807/21/2022dministeredPneumococcal (Pneumovax 23)Unknown 06/29/2016AdministeredPneumococcal (Prevnar 13)Qsdirqr2007/26/2017Administered SARS-COV-2 (COVID 19 Moderna - Booster 0.25mL)Npyoggb7310/18/2020dministered SARS-COV-2 (COVID 19 Moderna - Booster 0.25mL)Qyuwlbs07/11/2021Administered SARS-COV-2 (COVID 19 Moderna - Booster 0.25mL)Nmdcnmw97/23/2021Administered ZOSTER (SHINGLES) VACCINE (HZV)Zaajdvb60/10/2025Administered Social History Tobacco Use: Social History Observation Description Date Details (start date - stop date) Former Smoker 09/06/1964 - 09/06/1980 Tobacco Use/Smoking Question Answer Notes Patient is a former smoker When did you start smoking?09/06/1964When did you stop smoking?09/06/1980How long has it been since you last smoked?> 10 yearsAlcohol Screen (Audit-C) Question Answer Notes Did you have a drink containing alcohol in the p ast year? No Uqrauz1UbytwxonqckgwjHawsgmovAXCFA-J (Standard) Question Answer Notes Did you have a drink containing alcohol in the p ast year? 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) ActiveconfirmedProblemCardiomegaly (5823490)Cardiomegaly (I51.7)Activeconfirmed ProblemClosed fracture of shaft of humerus (74798262)Displaced comminuted fracture of shaft of humerus, left arm, initial encounter for closed fracture ( S42.352A)ActiveconfirmedProblemClosed intertrochanteric fracture (51952548) Displaced intertrochanteric fracture of left femur, initial encounter for closed fracture (S72.142A)ActiveconfirmedProblemClosed fracture of fibula (587693265) Other fracture of upper and lower end of left fibula, initial encounter for closed fracture (S82.832A)ActiveconfirmedProblemClosed bimalleolar fracture (66046906)Nondisplaced bimalleolar fracture of left lower leg, initial encounter for closed fracture (S82.845A)ActiveconfirmedProblemHypertension (53232560) Hypertension (I10)ActiveconfirmedProblemCongestive heart failure (85788034)CHF (congestive heart failure) (I50.9)ActiveconfirmedProblemHypothyroidism (64569352)Hypothyroidism (E03.9)ActiveconfirmedProblemAtrial fibrillation (disorder) (53624993)Afib (I48.91)ActiveconfirmedProblemLeft ventricular hypertrophy (09016705)Left ventricular hypertrophy (I51.7)ActiveconfirmedProblem Diverticular disease of colon (364752143)Diverticulosis (K57.90)Activeconfirmed ProblemImpacted cerumen (98990073)Cerumen impaction (H61.20)Activeconfirmed ProblemOsteoporosis (44244193)Osteoporosis (M81.0)ActiveconfirmedProblemEdema of left lower extremity (470530118)Edema of left lower extremity (R60.0)Active confirmedProblemAcute bronchitis (65958372)Acute bronchitis (J20.9)Active confirmedProblemWell adult (083459762)Well adult (Z00.00)ActiveconfirmedProblem Polyp colon (84586630)Colon polyp (K63.5)ActiveconfirmedProblemBronchiectasis (67581434)Bronchiectasis (J47.9)ActiveconfirmedProblemPre-surgery evaluation (414985826)Pre-op exam (Z01.818)ActiveconfirmedProblemNear syncope (996403143) Near syncope (R55)ActiveconfirmedProblemLate effect of fracture of lower extremities (48052241)Nondisplaced fracture of medial malleolus of left tibia, sequela (S82.55XS)ActiveconfirmedProblemTakotsubo cardiomyopathy (749832627) Takotsubo cardiomyopathy (I51.81)ActiveconfirmedProblemUnsteady gait (12861498) Unsteady gait (R26.81)ActiveconfirmedProblemAortic valve regurgitation (58937388)Aortic valve regurgitation (I35.1)ActiveconfirmedProblemPoor balance (272205500)Poor balance (R26.89)ActiveconfirmedProblemAt risk for falls (381904720)At risk for falls (Z91.81)ActiveconfirmedProblemCardiomegaly (2571992)Atrial enlargement, left (I51.7)ActiveconfirmedProblemLeft heart failure (24230016)Heart failure, left, with LVEF <=30% (I50.1)Activeconfirmed ProblemDisease caused by Severe acute respiratory syndrome coronavirus 2 (disorder) (601451675)COVID-19 virus infection (U07.1)Activeconfirmed Vital Signs Blood pressure diastolic 82 mm Hg 06/05/2025 Meumcd08 in06/05/2025lood pressure qbmgypcd827 mm Hg06/05/20259229Irdhrs018.8 lbs 06/05/2025BMI31.93 kg/m206/05/2025 Procedures Procedure Date Ordered Date Performed Result Body Sit e EAR IRRIGATION - performed 04/25/2025 N/A Encounters Encounter Location Date Provider Diagnosis [facility] [address] [place] [address] 06/05/2025 Manuel Kaur Encounter for Medica re annual wellness exam Z00.00 [facility] [address] [place] [address] 10/25/2024 Manuel Kaur CHF (congestive hear t failure) I50.9 ; Hypothyroidism E03.9 ; Hypertension I10 and Takotsubo cardiomyopathy I51.81 [facility] [address] [facility] [place] [address] 04/25/2025 Manuel Hoy Unsteady gait R26.81 ; Hypertension I10 ; CHF (congestive heart failure) I50.9 ; Hypothyroidism E03.9 and Bilateral impacted cerumen H61.23 [facility] [address] [facility] [place] [address] 04/25/2025 Manuel Hoy [facility] [facility] [place] [place] [address] [facility] [facility] [place] [address]/[facility] [facility] [place] [place] [address]/[facility] [facility] [place] [place] [address]/[facility] [facility] [place] [address]/06/2025[facility] [place] [address] Manuel Hoy Assessments Encounter Date Diagnosis (ICD Code) Assessment Notes Treatment Notes Treatment Clinical Notes Section Notes 10/25/2024 CHF (congestive heart failure) ( ICD-10 - I50.9) 10/25/2024Hypothyroidism (ICD-10 - E03.9)04/25/2025Hypertension (ICD-10 - I10) stabel at home04/25/2025Unsteady gait (ICD-10 - R26.81)stting up PT06/05/2025 Encounter for Medicare annual wellness exam (ICD-10 - Z00.00)04/25/2025HF (congestive heart failure) (ICD-10 - I50.9)no edema - now10/25/2024Hypertension (ICD-10 - I10)10/25/2024Takotsubo cardiomyopathy (ICD-10 - I51.81)04/25/2025 Hypothyroidism (ICD-10 - E03.9)on meds -5Bilateral impacted cerumen (ICD-10 - H61.23) Plan Of Treatment Pending Test Test Name Order Date CMP (COMPLETE METABOLIC PANEL) 3 CMP (COMPLETE METABOLIC PANEL) 4 UA (URINALYSIS, COMPLETE) 03/23/2023 HEMOGLOBIN A1C (GLYCO) 06/30/2023 HEMOGLOBIN A1C (GLYCO) 04/25/2025 HEMOGLOBIN A1C (GLYCO) 04/24/2024 IRON, TOTAL 04/25/2025 IRON, TOTAL 06/30/2023 IRON, TOTAL 04/24/2024 LIPID PANEL (CHOL/TRIG/HDL/LDL) 04/24/20 24 LIPID PANEL (CHOL/TRIG/HDL/LDL) 04/25/20 25 CBC WITH DIFF 04/24/2024 CBC WITH DIFF 06/30/2023 VITAMIN D, 25 LEVEL (TOTAL) 04/24/2024 Urine Culture 03/23/2023 EAR IRRIGATION - performed 04/25/2025 BNP 04/25/2025 URINE MICROSCOPIC ONLY 03/23/2023 US PELVIS 03/23/2023 THYROID PANEL (T4/TSH/FREE T3) 5 THYROID PANEL (T4/TSH/FREE T3) 3 THYROID PANEL (T4/TSH/FREE T3) 4 CMP (COMP MET ORTEGA) w/eGFR CKD-EPI 2024 CBC WITH DIFF 04/25/2025 Next Appt Details Provider Name:Manuel Santo Gareth, 10:30:00 AM, [address] [place], [address], Insurance Providers Payer Name Payer Address Payer Phone Subscriber Number Group Number Insured Name Patient Relationship to Insured Coverage Start Date Coverage End Date [place]IC[place] [address] [place] [address] [id number] Cesar Agostoelf - patient is the [id number] [facility] [address] [place] [phone], JosephineSelf - patient is the [id number] 2018 Medical (General) History Medical History History ICD [...] 02/24/2023 Tubal Ligation left hip surgery- metal pieceHospitalization History Reason Date(Month/Year) see above
--- OUTSIDE RECORDS SUMMARY | 2025-07-03 12:12 | XMS_ITS | Clinical Summary ---
Author Organization [facility] Address [address] [facility] [place] [address] Care Team Providers Care Raw Products Director Name Role Phone Kole Servin MD Primary Care Provider [phone] Allergies Active AllergyReactionsCriticalityNoted JyiySmhizdoyVxvnlyjgrhPtflfoq52/24/2024 Sulfa AntibioticsOther,Unknown,KzozDww3902/02/2020 Medications MedicationSigDispense QuantityRefillsLast FilledStart DateEnd DateStatus furosemide (Lasix) 5 MG split tablet Take 20 mg by mouth 1 (one) time.07/19/2022ctive carvedilol (Coreg) 6.25 MG tablet Take 1 tablet by mouth in the morning and 1 tablet before bedtime.Active Eliquis 5 MG tablet Take 1 tablet by mouth in the morning and 1 tablet before bedtime.Active Synthroid 50 MCG tablet Take 50 mcg by mouth in the morning. Take before meals.01/22/2023ctive lisinopril 20 MG tablet Take 20 mg by mouth in the morning.07/02/2022ctive meclizine (Antivert) 25 MG tablet Take 25 mg by mouth in the morning.Active cholecalciferol (Vitamin D-3) 25 MCG (1000 UT) capsule Take 1,000 Units by mouth in the morning.Active spironolactone (Aldactone) 25 MG tablet Take 12.5 mg by mouth in the morning./5Active nystatin (Mycostatin) 420441 UNIT/GM powder Indications:TineaApply topically in the morning and in the evening and before bedtime. 15 g 508/ctive estradiol (Estrace) 0.1 MG/GM vaginal cream Indications:Well woman exam with routine gynecological exam,Encounter for screening mammogram for malignant neoplasm of gygejk9g vaginal daily for 2 weeks, then 2 times weekly following initial 2 weeks 42.5 g 5Active Active Problems ProblemNoted DateDiagnosed DateOsteoporosis, post-czmxznusvm48/08/2024 Encounters DateTypeDepartmentCare JxfpZajajkfviwh56/27/2025 1:00 PM EDTProcedure Visit [facility] [address] [place] [address] Meera Jimenez PA Tinea (Primary Dx); Well woman exam with routine gynecological exam; Encounter for screening mammogram for malignant neoplasm of breast; Vaginal dryness, miybhukouq66/27/2025amboo flowsheet [facility] [address] [place] [address] Meera Jimenez PA from Last 3 Months Social History Tobacco UseTypesPacks/DayYears UsedDateSmoking Tobacco: Never Assessed CommentsNoSex and Gender InformationValueDate RecordedSex Assigned at BirthNot on fileLegal JzoSkeose00/01/2023 9:01 AM EDTGender IdentityNot on fileSexual OrientationNot on file Last Filed Vital Signs Vital SignReadingTime TakenCommentsBlood Avjkpjcs135/7208 1:04 PM EDT Pulse--Temperature--Respiratory Rate--Oxygen Saturation--Inhaled Oxygen Concentration--Mbkcge83.8 kg (158 lb 4 oz)05/02/2025 1:04 PM BPURfmxex613.9 cm (4' 11 )08/05/2023 2:34 PM ESTBody Mass Index31.9608/05/2023 2:34 PM EST Plan of Treatment Health MaintenanceDue DateLast DoneCommentsInfluenza Vaccine (#1)05/07/2025 07/21/2022, 07/11/2020, 06/29/2016Pneumococcal Vaccine: 65+ YearsCompleted 07/26/2017, 06/29/2016 Insurance Care Teams Team MemberRelationshipSpecialtyStart DateEnd Kole Servin MD [address] [place] [address] PCP - GeneralFamily Medicine04/06/23
[2025-07-03 12:53] LABS: Hematocrit 41.0 % (36.0-48.0); Hemoglobin 13.2 g/dL (12.0-16.0); Immature Granulocytes Abs Auto 0.02 10^3/uL (0.00-0.03); Immature Granulocytes Pct Auto 0.4 % (0.0-0.5); Lymphocytes Absolute Auto 1.1 10^3/uL (1.2-3.8); Mean Corpuscular HGB Conc 32.2 g/dL (29.9-35.2); Mean Corpuscular Hemoglobin 31.5 pg (26.7-34.0); Mean Corpuscular Volume 97.9 fL (81.0-99.0); Platelet Count 158 10^3/uL (150-450); Red Blood Count 4.19 10^6/uL (4.20-5.40); White Blood Count 4.8 10^3/uL (4.0-11.0)
[2025-07-03 13:37] LABS: Alanine Aminotransferase 10 U/L (14-59); Albumin Globulin Ratio 0.9; Albumin Level 3.1 g/dL (3.4-5.0); Alkaline Phosphatase 69 U/L (46-116); Anion Gap 9.9; Aspartate Amino Transferase 17 U/L (15-37); Blood Urea Nitrogen 15.0 mg/dL (7.0-18.0); Calcium 9.6 mg/dL (8.5-10.1); Carbon Dioxide 31.2 mmol/L (21.0-32.0); Chloride 101 mmol/L (98-107); Estimated GFR (African America 46 (>=60 mL/min/1.73m^2); Estimated GFR (Non-African Ame 38 (>=60 mL/min/1.73m^2); Globulin 3.5 g/dL; Glucose 165 mg/dL (74-106); NT Pro B Type Natriuretic Pept 1559.0 pg/mL (<=1800.0); Potassium 4.1 mmol/L (3.5-5.1); Sodium 138 mmol/L (136-145); TSH W/ REFLEX FT4 4.172 uIU/mL (0.358-3.740); Total Protein 6.6 g/dL (6.4-8.2)
== END 2025-07-03 12:04 | disposition home or self-care (01) ==
LOC: LAB 12:08
PROVIDERS: PCP Family Medicine; Visit Provider Nurse Practitioner Family
DX: R06.02 Shortness of breath (principal); I48.0 Paroxysmal atrial fibrillation
CPT/HCPCS: 36415; 80053; 83880; 84439; 84443; 85025

== ENCOUNTER 2025-07-11 08:03 | Outpatient (OUT) | payer MEDICARE, OTHER, SELFPAY ==
--- OUTSIDE RECORDS SUMMARY | 2025-07-03 13:30 | XMS_ITS | Encounter Summary ---
Author Organization [facility] Address [address] [place] [address] Care Team Providers Care Drier Attendant Name Role Phone Kole Servin MD Primary Care Provider [phone] Reason for Visit * ReasonCommentsFollow-upPatient is here today per Jasmina Abbott request. Patient had recent Echo, PFT. Had labs today before apt.Atrial Fibrillation CardiomyopathyTakotsuboHypertensionLVHCardiomegalyLeft atrial enlargement Shortness of BreathPatient complains of increased SOB/DOEPalpitations Palpitations/racing heart Encounter Details DateTypeDepartmentCare Team (Latest Contact Info)Anueljwrhiu00/28/2025 2:30 PM EDTOffice Visit [facility] [address] [place] [address] Zeb Chicas MD [address] [place] [phone] Persistent atrial fibrillation (CMS/HCC) (Primary Dx) Social History Tobacco UseTypesPacks/DayYears UsedDateSmoking Tobacco: FormerCigarettes Smokeless Tobacco: NeverAlcohol UseStandard Drinks/WeekCommentsYes0 (1 standard drink = 0.6 oz pure alcohol)occasionalUT Safety & EnvironmentAnswerDate Recorded Fear of Current or Ex-PartnerNot on file10/28/2023Emotionally AbusedNot on file 10/28/2023hysically AbusedNot on file10/28/2023Sexually AbusedNot on file 10/28/2023hysically or Sexually AbusedNot on file02/22/2024Comments UnknownSex and Gender InformationValueDate RecordedSex Assigned at BirthFemale 04/06/2025 2:27 PM EDTLegal LxlTxuwun58/30/2022 12:14 AM EDTGender Identity Dzcedg1804/06/2025 2:27 PM EDTSexual OrientationHeterosexual or Shpawujl62/01/2025 2:27 PM EDTdocumented as of this encounter Last Filed Vital Signs Vital SignReadingTime TakenCommentsBlood Xzqrsjjk187/8207/03/2025 2:27 PM EDT Tljnt935307/03/2025 2:27 PM EDTTemperature--Respiratory Rate--Oxygen Looqrksvry69% 07/03/2025 2:27 PM EDTInhaled Oxygen Concentration--Avxyuo33.8 kg (156 lb) 07/03/2025 2:27 PM RMGVekjxe145.9 cm (4' 11 )07/03/2025 2:27 PM EDTBody Mass Index31.511 2:27 PM EDTdocumented in this encounter Functional Status * BPAnswerDate of XldpufujnaMkuubd205/8207/03/2025 2:27 PM EDFabienne Viera MA * PulseAnswerDate of HjepfwxgvjHpwxik9214/28/2025 2:27 PM EDFabienne Viera MA * Patient PositionAnswerDate of EadkblbxbjNokamiCqzqirg57/28/2025 2:27 PM EDT Fabienne Vidal MA * BPAnswerDate of JjnjfxtqtqYuuogi567/8210 2:27 PM Fabienne Jin MA * PulseAnswerDate of OrcnqmcbdpSmixld1350/28/2025 2:27 PM Fabienne Jin MA * VlW7DnxtmgEarn of OftpffhnueBmzyuv8545/28/2025 2:27 PM Fabienne Jin MA * BP LocationAnswerDate of AssessmentAuthorLeft arm07/03/2025 2:27 PM EDT Fabienne Vidal MA * Patient PositionAnswerDate of RsrxhutvbfAmndxnRhokphf15/28/2025 2:27 PM EDT Fabienne Vidal MA documented as of this encounter Progress Notes * Zeb Chicas MD - 07/03/2025 2:30 PM EDT Images from the original note were not included. [place] Electrophysiology Consult Note [place] Cardiology [facility] Reason for visit: Atrial fibrillation HPI: Nereida Agosto is a 85 y.o. year old with past medical history of hypertension Takotsubo cardiomyopathy in 2022 with complete resolution of EF to 55 to 60% by 2023. atrial fibrillation s/p cardioversion 12/26/2018 and a history of mitral valve regurgitation was been previously evaluated by cardiology with Jasmina Lorenzo as well as Dr. DOMINGO. Previously the patient was noted to have a low EF based on an echo on 12/16/2018. There was an improvement in EF subsequently cardioversion with EF normalizing in January 2021 echo. In light of very bad abnormal PFT amiodarone was not given. Patient was subsequently noted to have atrial fibrillation based on visit in February 19, 2023 and was placed on beta-bl ockers for rate control PMH: Medical History[1] PSH: Surgical History[2] SH: Social Drivers of Health Tobacco Use: Medium Risk (07/03/2025) Patient History Smoking Tobacco Use: Former Smokeless Tobacco Use: Never Passive Exposure: Not on file Alcohol Use: Not on file Financial Resource Strain: Not on file Food Insecurity: Not on file Transportation Needs: Not on file Physical Activity: Not on file Stress: Not on file Social Connections: Not on file Intimate Partner Violence: Unknown (10/28/2023) [place] Safety & Environment Fear of Current or Ex-Partner: Not on file Emotionally Abused: Not on file Physically Abused: Not on file Sexually Abused: Not on file Physically or Sexually Abused: Not on file Depression: Not on file Housing Stability: Not on file Utilities: Not on file Health Literacy: Not on file Allergies: Allergies[3] Weight: 70.8kg Visit Vitals BP 138/82 (BP Location: Left arm, Patient Position: Sitting) Pulse 83 Ht 1.499 m (4' 11 ) Wt 70.8 kg (156 lb) SpO2 94% BMI 31.51 kg/m?? Smoking Status Former BSA 1.72 m?? Meds: Medications Ordered Prior to Encounter[4] ROS: Review of Systems Cardiovascular: Positive for dyspnea on exertion, irregular heartbeat and palpitations. Respiratory: Positive for shortness of breath. Physical Exam: Constitutional General Appearance: well-nourished, well-developed, appears stated age Level of Distress: comfortable Eyes EVANGELINA Neck Neck: supple, trachea midline Carotid Arteries: bilateral normal upstroke, no bruits Jugular Veins: normal jugular venous pressure Thyroid: not enlarged Lungs Respiratory Effort: unlabored Chest Exam: normal curvature, no thoracic deformity Auscultation: clear, no wheezing, no rales, no rhonchi Cardiovascular Chest wall: Rate And Rhythm: regular Heart Sounds: normal S1, normal s2, no gallop Systolic Murmur: not heard Diastolic Murmur: not heard Extremities: no cyanosis, no edema, no peripheral signs of emboli Peripheral Pulses Radial Pulse: normal Abdomen Inspection and Palpation: soft, non distended, no bruit, non tender Neurologic Gait: normal gait Labs: @LABRESULTS@ Lab Results Component Value Date HDL 36 12/15/2018 TRIGLYCERIDES 106 12/15/2018 TSH 0.86 12/15/2018 BNP 369 (H) 12/15/2018 EKG: February 2025 shows atrial fibrillation Echo: 06/01/2025 Stress test: Coronary angiogram: @CATH@ PFT 02/28/2025 Assessment and Plan: -Persistent atrial fibrillation: Patient has previously been cardioverted and maintained sinus for some time with recurrence of A-fib however given the poor pulmonary function. Amiodarone was not given. At this stage they are trialing the class Ic drug to see whether she can maintain sinus rhythm and consider the option of catheter ablation prior to this she will get a stress test to rule out CAD. - HTN: Ct meds Zeb Chicas MD Cardiac Electrophysiology [facility] [1] Past Medical History: Diagnosis Date Abnormal ECG Arrhythmia Atrial fibrillation (CMS/HCC) Hypertension Hypothyroidism Takotsubo cardiomyopathy [2] Past Surgical History: Procedure Laterality Date CARDIAC CATHETERIZATION 12/15/2018 HIP SURGERY [3] Allergies Allergen Reactions Alprazolam Unknown Sulfa (Sulfonamide Antibiotics) [4] Current Outpatient Medications on File Prior to Visit Medication Sig Dispense Refill alendronate (Fosamax) 70 mg tablet Take 70 mg by mouth every 7 (seven) days. apixaban (Eliquis) 5 mg tablet Take 1 tablet by mouth in the morning and at bedtime. aspirin 81 mg EC tablet Take 81 mg by mouth 1 (one) time. calcium 500 mg calcium (1,250 mg) tablet Take 1 tablet by mouth in the morning. carvedilol (Coreg) 12.5 mg tablet Take 1 tablet by mouth in the morning and at bedtime. cholecalciferol (Vitamin D-3) 25 MCG (1000 UT) capsule Take 1,000 Units by mouth in the morning. ferrous sulfate 325 (65 Fe) MG tablet Take 325 mg by mouth with breakfast. furosemide (Lasix) 20 mg tablet Take 1 tablet by mouth in the morning. levothyroxine (Synthroid, Levoxyl) 50 mcg tablet Take 1 tablet every day by oral route for 30 days. lisinopril 20 mg tablet TAKE 1 TABLET IN THE MORNING 90 tablet 3 meclizine (Antivert) 25 mg tablet Take 25 mg by mouth if needed. potassium chloride CR (K-Tab) 20 mEq ER tablet Take 20 mEq by mouth in the morning. spironolactone (Aldactone) 25 mg tablet TAKE ONE-HALF (1/2) TABLET IN THE MORNING 45 tablet 3 No current facility-administered medications on file prior to visit. documented in this encounter Plan of Treatment Not on file documented as of this encounter Visit Diagnoses Diagnosis Persistent atrial fibrillation (CMS/HCC)- Primary Atrial fibrillation documented in this encounter Care Teams Team MemberRelationshipSpecialtyStart DateEnd Date Kole Servin MD [address] [place] [id number] PCP - General05/28/22documented as of this encounter
--- NOTE | 2025-07-11 07:30 | NM_ITS ---
Patient Name: JOI DUNCAN MR#: [id number] : 1940 Exam Date: 07/11/2025 Ordering Doctor: MAHESH ALVARADO RADIOLOGY REPORT PROCEDURE: NM SCOT PERF SPECT REST STR COMPARISON: None. INDICATIONS: SHORTNESS OF BREATH, LEFT VENTRICULAR HYPERTROPHY, ACUTE COMBINED SYSTOLIC AND DIASTOLIC HEART FAILURE TECHNIQUE: Exam Description: Stress/Rest one day protocol gated SPECT Rest Imagin.2 mCi Tc-99m Cardiolite IV on 07/11/2025 Stress Imaging 30.6 mCi Tc-99m Cardiolite IV on 07/11/2025 Exercise Protocol: 0.4 mg Lexiscan given IV Heart Rate (bpm): Rest: 79 Max: 96 PMHR: 70 Blood Pressure: Rest: 131/70 Max: 137/62 Symptoms: Rest and peak stress ECG findings were pending, and the exercise portion of the study was pending per attending physician [facility]. For more details, please see separate cardiac stress test report. FINDINGS: QUALITY OF STUDY: Good PERFUSION DEFECT: LOCATION: N/A SIZE: N/A SEVERITY: N/A TYPE: N/A WALL MOTION: Normal wall motion LV SIZE: 28 mL. TID / TCD: 0.7 LVEF: Calculated EF 73%. SUMMARY: Myocardial perfusion imaging study is normal CONCLUSION: 1. Myocardial perfusion is normal with soft tissue attenuation 2. Global left ventricular systolic function is hyperdynamic; ejection fraction is 73% 3. No significant transient ischemic dilatation Dictated by: Goldie Vaughan M.D. on 07/11/2025 at 14:37 Approved by: Goldie Vaughan M.D. on 07/11/2025 at 14:39
--- OUTSIDE RECORDS SUMMARY | 2025-07-11 08:08 | XMS_ITS | Patient Health Record ---
Author Organization [facility] [place] Address [address] [place] [address] Care Team Providers Care Property Site Manager Name Role Phone Manuel Kaur Primary Care Provider Allergies Allergen (clinical drug ingredient) Drug/Non Drug Allergy documented on EMR Reaction Allergy Type Onset Date Status alprazolam Xanax unknown Drug Allergy ActiveSubstance with sulfonamide structure and antibacterial mechanism of action (substance)Sulfa AntibioticsUnknownDrug AllergyActive Results Component Value Reference Range Notes CALCIUM Reviewed date:11/15/2024 12:47:01 PM Interpretation: Performing Lab: Notes/Report: [facility] , Calcium 9.4 8.5-10.1 mg/dL Performing Lab:see noteML - [facility] LBCREATININE Reviewed date:11/15/2024 12:47:01 PM Interpretation: Performing Lab: Notes/Report: [facility] ,Creatinine1.320.55-1.02 mg/dLEstimated GFR ( Uwdrlxh87>=60 mL/min/1.73m 2Estimated GFR (Non- Ame39>=60 mL/min/1.73m 2Performing Lab:see noteML - [facility] LBCA echo doppler complete Reviewed date:11/15/2024 12:47:01 PM Interpretation: Performing Lab: Notes/Report: Source Facility: [facility]-[address] [place] [address] [place] [address] Cardiology Report Signed Patient: NEREIDA AGOSTO MR#: [id number] : 1940 Acct:[id number] Age/Sex: 84 / F ADM Date: 11/15/24 Loc: CARD Attending Dr: Goldie Waldrop M.D. Ordering Physician: Goldie Waldrop M.D. Date of Service: 11/15/24 Procedure(s): CA echo doppler complete Accession Number(s): [id number] cc: Goldie Waldrop M.D.; Jacinto Kaur M.D. Patient Name: NEREIDA AGOSTO MR#: [id number] : 1940 Exam Date: 11/15/2024 Ordering Doctor: [...] Signed By: 11/15/24 1206 DD/ 1204 TD/TT: Shank Cementer Hand:NEGRO tomosynthesis screening BI Reviewed date:01/27/2025 11:52:30 AM Interpretation: Performing Lab: Notes/Report: Source Facility: [facility] [place] [address] [address] Mammography Report Signed Patient: NEREIDA AGOSTO MR#: [id number] : 1940 Acct:[id number] Age/Sex: 84 / F ADM Date: 01/26/25 Loc: MAMMO Attending Dr: Jacinto Kaur M.D. Ordering Physician: Jacinto Kaur M.D. Results: Date of Service: 01/26/25 Follow Up: Procedure(s): MM tomosynthesis screening BI Accession Number(s): [id number] cc: Jacinto Kaur M.D. Patient Name: NEREIDA AGOSTO MR#: [id number] : 1940 Exam Date: 01/26/2025 Ordering Doctor: [...] Treatments None Family Cancers None LOCATION: [facility] BREAST COMPOSITION: There are scattered areas of [...] Dictated By: Jeremy Munoz M.D. Signed By: 01/26/251707 DD/ 06 TD/TT: Shank Cementer Hand:HEMOGLOBIN Reviewed date:02/28/2025 09:07:51 PM Interpretation: Performing Lab: Notes/Report: [facility] ,Ekzwkmzhgw11.812.0-16.0 g/dLPerforming Lab:see noteML - [facility] LBTSH W/ REFLEX FT4 Reviewed date:07/03/2025 07:31:04 PM Interpretation: Performing Lab: Notes/Report: [facility] ,TSH W/ REFLEX FT44.1720.358-3.740 uIU/mLPerforming Lab:see note - [facility] LBPROF 14(COMP METB) Reviewed date:07/03/2025 07:31:04 PM Interpretation: Performing Lab: Notes/Report: [facility] ,Kohait134337-558 mmol/LPotassium4.13.5-5.1 mmol/UTvmqmzog32835-398 mmol/LCarbon Ejrkzzw95.221.0-32.0 mmol/LAnion Gap9.4Smqrpyy11208-227 mg/dLBlood Urea Jkoenovp55.07.0-18.0 mg/dLCreatinine1.340.55-1.02 mg/dLEstimated GFR ( Gdtowlt17>=60 mL/min/1.73m 2Estimated GFR (Non- Ame38>=60 mL/min/1.73m 2 BUN Creatinine Ratio11.2Mfnnrar2.68.5-10.1 mg/dLBilirubin Total0.60.2-1.0 mg/dL Aspartate Amino Fzzvknmhgqd3891-50 U/LAlanine Mdqczicyypkfcwuv7652-93 U/L Alkaline Mrcvhgbsufm0466-251 U/LTotal Protein6.66.4-8.2 g/dLAlbumin Level3.13.4- 5.0 g/dLGlobulin3.5Albumin Globulin Ratio0.9Performing Lab:see noteML - [facility] LBFREE T4 Reviewed date:07/03/2025 07:31:04 PM Interpretation: Performing Lab: Notes/Report: [facility] ,Free T40.830.76-1.46 ng/dLPerforming Lab:see noteML - [facility] LB CBC AUTO DIFF Reviewed date:07/03/2025 07:31:04 PM Interpretation: Performing Lab: Notes/Report: [facility] ,White Blood Count4.84.0-11.0 10 3/uLRed Blood Count4.194.20-5.40 10 6/uL Szuucahaxz82.212.0-16.0 g/zGRmvcpmffgu75.036.0-48.0 %Mean Corpuscular Drujqh02.9 81.0-99.0 fLMean Corpuscular Dbyyyzxcyk25.526.7-34.0 pgMean Corpuscular HGB Conc 32.229.9-35.2 g/dLRed Cell Distribution Width12.311.0-15.0 %Platelet Yfdji231 150-450 10 3/uLMean Platelet Cqroke58.69.5-13.5 fLNeutrophils Percent Auto68.4 43.0-75.0 %Lymphocytes Percent Auto23.420.5-60.0 %Monocytes Percent Auto5.81.7- 12.0 %Eosinophils Percent Auto1.40.9-7.0 %Basophils Percent Auto0.60.2-2.0 % Immature Granulocytes Pct Auto0.40.0-0.5 %Neutrophils Absolute Auto3.31.4-6.5 10 3/uLLymphocytes Absolute Auto1.11.2-3.8 10 3/uLMonocytes Absolute Auto0.30.3- 0.8 10 3/uLEosinophils Absolute Auto0.10.0-0.7 10 3/uLBasophils Absolute Auto0.0 0.0-0.1 10 3/uLImmature Granulocytes Abs Auto0.020.00-0.03 10 3/uLPerforming Lab:see noteML - [facility] LBBNP Reviewed date:07/03/2025 07:31:04 PM Interpretation: Performing Lab: Notes/Report: [facility] ,NT Pro B Type Natriuretic Dlqh6147.0<=1800.0 pg/mLPerforming Lab:see noteML - [facility] LBCA echo doppler complete Reviewed date:06/02/2025 02:24:26 PM Interpretation: Performing Lab: Notes/Report: Source Facility: [facility]-[address] [place] [address] [place] [address] Cardiology Report Signed Patient: NEREIDA AGOSTO MR#: [id number] : 1940 Acct:[id number] Age/Sex: 85 / F ADM Date: 06/01/25 Loc: CARD Attending Dr: KHANG LORENZO APRN Ordering Physician: KHANG LORENZO APRN Date of Service: 06/01/25 Procedure(s): CA echo doppler complete Accession Number(s): [id number] cc: Jacinto Kaur M.D.; KHANG LORENZO APRN Patient Name: NEREIDA AGOSTO MR#: [id number] : 1940 Exam Date: 06/01/2025 Ordering Doctor: KHANG LORENZO CLAIMS ANALYST ECHOCARDIOGRAM REPORT PROCEDURE: CA ECHO DOPPLER COMPLETE [...] NATHAN Signed By: 06/01/251652 DD/ 50 TD/TT: Shank Cementer Hand:RT pulmonary function test Reviewed date:03/01/2025 07:21:19 PM Interpretation: Performing Lab: Notes/Report: Source Facility: [place] [address] Respiratory Report Signed Patient: NEREIDA AGOSTO MR#: [id number] : 1940 Acct:[id number] Age/Sex: 84 / F ADM Date: 02/28/25 Loc: CARD Attending Dr: KHANG LORENZO APRN Ordering Physician: KHANG LORENZO APRN Date of Service: 02/28/25 Procedure(s): RT pulmonary function test Accession Number(s): [id number] cc: [facility] Test Date: 2025-02-28 Pat Name: NEREIDA AGOSTO Department: Room: - Gender: Female Retail Associate: Josh Giron RRT : 1940 Requested By: Khang Lorenzo Order Number: [id number] MD: Lawrence Wong Interpretive Statements Pulmonary [...] Signed By: 03/01/25 1557 DD/ 0907 TD/TT: Shank Cementer Hand: Reason For Referral Diagnosis 1 Unsteady gait (R26.8 1) Referral Organization [facility] Referring Provider First Name Manuel Referring Provider [...] free Unknown 09/14/2009 Administered Flu, -historic- Novel O5M2-08, preservative jxetZcumlqt35/09/2010dministered Flu, Fluad (56008) 65 yrs and older, single-dose syringe (6966-5515)Unknown 07/11/2020AdministeredFlu, Fluad (66101) 65 yrs+, single-dose syringe (7381-7508)Qnbvdqf2907/21/2022dministeredPneumococcal (Pneumovax 23)Unknown 06/29/2016AdministeredPneumococcal (Prevnar 13)Smjztlb5807/26/2017Administered SARS-COV-2 (COVID 19 Moderna - Booster 0.25mL)Tznvpgt5410/18/2020dministered SARS-COV-2 (COVID 19 Moderna - Booster 0.25mL)Osaldrh76/11/2021Administered SARS-COV-2 (COVID 19 Moderna - Booster 0.25mL)Ndbgamo3808/28/2021dministered ZOSTER (SHINGLES) VACCINE (HZV)Ntprlru3203/15/2025dministered Social History Tobacco Use: Social History Observation [...] alcohol in the p ast year? No Nbunix3IdbculrsmuvjfcFxkzhsiaLMISB-M (Standard) Question Answer Notes Did you have a drink containing alcohol in the p ast year? 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) ActiveconfirmedProblemCardiomegaly (1149389)Cardiomegaly (I51.7)Activeconfirmed ProblemClosed fracture of shaft of humerus (55072880)Displaced comminuted fracture of shaft of humerus, left arm, initial encounter for closed fracture ( S42.352A)ActiveconfirmedProblemClosed intertrochanteric fracture (35289519) Displaced intertrochanteric fracture of left femur, initial encounter for closed fracture (S72.142A)ActiveconfirmedProblemClosed fracture of fibula (476254985) Other fracture of upper and lower end of left fibula, initial encounter for closed fracture (S82.832A)ActiveconfirmedProblemClosed bimalleolar fracture (39256736)Nondisplaced bimalleolar fracture of left lower leg, initial encounter for closed fracture (S82.845A)ActiveconfirmedProblemHypertension (55773347) Hypertension (I10)ActiveconfirmedProblemCongestive heart failure (23122043)CHF (congestive heart failure) (I50.9)ActiveconfirmedProblemHypothyroidism (86564315)Hypothyroidism (E03.9)ActiveconfirmedProblemAtrial fibrillation (disorder) (98595538)Afib (I48.91)ActiveconfirmedProblemLeft ventricular hypertrophy (78099107)Left ventricular hypertrophy (I51.7)ActiveconfirmedProblem Diverticular disease of colon (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)Diverticulosis (K57.90)Activeconfirmed ProblemImpacted cerumen (80632595)Cerumen impaction (H61.20)Activeconfirmed ProblemOsteoporosis (65844334)Osteoporosis (M81.0)ActiveconfirmedProblemEdema of left lower extremity (309731721)Edema of left lower extremity (R60.0)Active confirmedProblemAcute bronchitis (63042748)Acute bronchitis (J20.9)Active confirmedProblemWell adult (813593644)Well adult (Z00.00)ActiveconfirmedProblem Polyp colon (96367129)Colon polyp (K63.5)ActiveconfirmedProblemBronchiectasis (65241912)Bronchiectasis (J47.9)ActiveconfirmedProblemPre-surgery evaluation (644155393)Pre-op exam (Z01.818)ActiveconfirmedProblemNear syncope (931322241) Near syncope (R55)ActiveconfirmedProblemLate effect of fracture of lower extremities (20886552)Nondisplaced fracture of medial malleolus of left tibia, sequela (S82.55XS)ActiveconfirmedProblemTakotsubo cardiomyopathy (735531141) Takotsubo cardiomyopathy (I51.81)ActiveconfirmedProblemUnsteady gait (17997878) Unsteady gait (R26.81)ActiveconfirmedProblemAortic valve regurgitation (70081365)Aortic valve regurgitation (I35.1)ActiveconfirmedProblemPoor balance (240990640)Poor balance (R26.89)ActiveconfirmedProblemAt risk for falls (790784559)At risk for falls (Z91.81)ActiveconfirmedProblemCardiomegaly (6363587)Atrial enlargement, left (I51.7)ActiveconfirmedProblemLeft heart failure (95127667)Heart failure, left, with LVEF <=30% (I50.1)Activeconfirmed ProblemDisease caused by Severe acute respiratory syndrome coronavirus 2 (disorder) (440350755)COVID-19 virus infection (U07.1)Activeconfirmed Vital Signs Blood pressure diastolic 82 mm Hg 06/05/2025 Uouazo00 in06/05/2025lood pressure maqpguck374 mm Hg06/05/20250592Vsghwb305.8 lbs 06/05/2025BMI31.93 kg/m206/05/2025 Procedures Procedure Date Ordered Date Performed Result Body Sit e EAR IRRIGATION - performed 04/25/2025 N/A Encounters Encounter Location Date Provider Diagnosis [facility] [address] [place] [address] 04/25/2025 Manuel louis [facility] [place] [address] [facility] [place] [address]/[facility] [place] [address]/[facility] [place] [address]/[facility] [place] [address]/[facility] [facility] [place] [id number]/06/2025 [facility] [place] [address] 03/15/2025[facility] [place] [address]/Doug HoyEncounter for Medicare annual wellness exam Z00.00[facility] [place] [address]/Doug HoyCHF (congestive heart failure) I50.9 ; Hypothyroidism E03.9 ; Hypertension I10 and Takotsubo cardiomyopathy I51.81 [facility] [place] [address] 04/25/2025Doug HoyUnsteady gait R26.81 ; Hypertension I10 ; CHF (congestive heart failure) I50.9 ; Hypothyroidism E03.9 and Bilateral impacted cerumen H61.23 Assessments Encounter Date Diagnosis (ICD Code) Assessment Notes Treatment Notes Treatment Clinical Notes Section Notes 10/25/2024 CHF (congestive heart failure) ( ICD-10 - I50.9) 10/25/2024Hypothyroidism (ICD-10 - E03.9)04/25/2025Unsteady gait (ICD-10 - R26.81)stting up PT04/25/2025Hypertension (ICD-10 - I10)stabel at home06/05/2025 Encounter for Medicare annual wellness exam (ICD-10 - Z00.00)5CHF (congestive heart failure) (ICD-10 - I50.9)no edema [...] 04/25/2025 Next Appt Details Provider Name:Manuel Santo Renzolouis, 10:30:00 AM, [address] [place], [address], Insurance Providers Payer Name Payer Address Payer Phone Subscriber Number Group Number Insured Name Patient Relationship to Insured Coverage Start Date Coverage End Date [place] [address] [place] [address] [id number] Sharron Agosto - patient is the [id number] [facility] [address] [place] [id number], JosephineSelf - patient is the [id number] 2018 Medical (General) History Medical History History [...] I51.7 Hypertension I10 Surgical History Surgery Date(Month/Year) left hip surgery- metal piece Tubal UdmzcagbEisfrywjkkw97/21/2023olonoscopy- colon polyps/ diverticulosis 4Hospitalization History Reason Date(Month/Year) see above
--- OUTSIDE RECORDS SUMMARY | 2025-07-11 08:08 | XMS_ITS | Clinical Summary ---
Author Organization [facility] Address [address] [facility] [place] [address] Care Team Providers Care Wafer Production Worker Name Role Phone Kole Servin MD Primary Care Provider [phone] Allergies Active AllergyReactionsCriticalityNoted EptmKqmfdunrOdrehuegchMjcwugl75/24/2024 Sulfa AntibioticsOther,Unknown,EtivDvt0302/02/2020 Medications MedicationSigDispense QuantityRefillsLast FilledStart DateEnd DateStatus furosemide [...] by mouth in the morning./5Active nystatin (Mycostatin) 608448 UNIT/GM powder Indications:TineaApply topically in the morning and in the evening and before bedtime. 15 g 508/ctive estradiol (Estrace) 0.1 MG/GM vaginal cream Indications:Well woman exam with routine gynecological exam,Encounter for screening mammogram for malignant neoplasm of ndmtfe3k vaginal daily for 2 weeks, then 2 times weekly following initial 2 weeks 42.5 g 5Active Active Problems ProblemNoted DateDiagnosed DateOsteoporosis, post-eqccqrbcrg59/08/2024 Encounters DateTypeDepartmentCare CsmcNqdzuodhrmm76/27/2025 1:00 PM EDTProcedure Visit [facility] [address] [place] [address] Meera Jimenez PA Tinea (Primary Dx); Well woman exam with routine gynecological exam; Encounter for screening mammogram for malignant neoplasm of breast; Vaginal dryness, wkcdhiydit52/27/2025amboo flowsheet [facility] U[facility]OA [address] [place] [address] Meera Jimenez PA from Last 3 Months Social History Tobacco UseTypesPacks/DayYears UsedDateSmoking Tobacco: Never Assessed CommentsNoSex and Gender InformationValueDate RecordedSex Assigned at BirthNot on fileLegal XtpIldzlm40/01/2023 9:01 AM EDTGender IdentityNot on fileSexual OrientationNot on file Last Filed Vital Signs Vital SignReadingTime TakenCommentsBlood Pfprjqct886/7208 1:04 PM EDT Pulse--Temperature--Respiratory Rate--Oxygen Saturation--Inhaled Oxygen Concentration--Wdmscu84.8 kg (158 lb 4 oz)05/02/2025 1:04 PM IFLKokmht424.9 cm (4' 11 )08/05/2023 2:34 PM ESTBody Mass Index31.9608/05/2023 2:34 PM EST Plan of Treatment Health MaintenanceDue DateLast DoneCommentsDTaP/Tdap/Td Vaccines (1 - Tdap) 1947COVID-19 Vaccine (2024- season), 11/14/2020, 10/18/2020Influenza Vaccine (#1)5109/20/2021, 07/11/2020, 06/29/2016 Pneumococcal Vaccine: 65+ SwvpnCuqhsecgb47/20/2017, 06/29/2016HIB VaccinesAged OutNo longer eligible based on patient's age to complete this topicHPV Vaccines Aged OutNo longer eligible based on patient's age to complete this topic Hepatitis A VaccinesAged OutNo longer eligible based on patient's age to complete this topicHepatitis B VaccinesAged OutNo longer eligible based on patient's age to complete this topicIPV VaccinesAged OutNo longer eligible based on patient's age to complete this topicMeningococcal B VaccineAged OutNo longer eligible based on patient's age to complete this topicMeningococcal VaccineAged OutNo longer eligible based on patient's age to complete this topicRotavirus VaccinesAged OutNo longer eligible based on patient's age to complete this topic Insurance Care Teams Team MemberRelationshipSpecialtyStart DateEnd Date Kole Servin MD [address] [place] [address] [facility]
--- OUTSIDE RECORDS SUMMARY | 2025-07-11 08:08 | XMS_ITS | Clinical Summary ---
Author Organization [facility] Address [address] [place] [address] Care Team Providers Care Crisis Therapist Name Role Phone Kole Servin MD Primary Care Provider [phone] Allergies Active AllergyReactionsCriticalityNoted FmiaWpucopcbQfeatvbswlJnotmbn60/24/2024 Sulfa (Sulfonamide Antibiotics)05/28/2022 Medications MedicationSigDispense QuantityRefillsLast FilledStart [...] 81 mg by mouth 1 (one) time.03/15/2024ctive ferrous sulfate 325 (65 Fe) MG tablet Take 325 mg by mouth with breakfast.02/06/2020Active alendronate (Fosamax) 70 mg tablet Take 70 mg by mouth every 7 (seven) days.06/08/2025tive Active Problems ProblemNoted DateDiagnosed DateAcute yhxnboeeej41/24/2025t risk for falls 06/29/2025enign neoplastic xbepavh8206/29/20258650Pwozpoypmdtrzp34/24/2025losed bimalleolar tvxajand36/24/2025losed fracture of vmgbxt2206/29/2025losed fracture of shaft of zbubshi6806/29/2025olon polyp06/29/2025OVID-191Diverticular disease of colon06/29/2025Impacted miygzkc58/24/2025Late effect of fracture of lower voitxcepd37/24/2025Poor ghysqfp4006/29/2025Pre-op exam06/29/2025Unsteady gait06/29/20250748Twzbdzgdvmur34/12/2025History of colon bbwhdz8402/15/2025History of colonic eefwbd9502/15/2025Obesity due to excess dgeqhfte33/12/2025losed fracture of left hipFracture of left cpdczao61 Intertrochanteric fracture of left femurOn anticoagulant acqrqaa16ight knee painSinus bradycardia by tvuatpxqsgnfajvpfdd52/22/202402/22/2024Traumatic injury of head10/28/2023 10/28/2023Vasovagal fuyfcrq45ortic valve regurgitation MI 30.0-30.9,adultongestive heart tcytyid05Left atrial rnglfunrdme61Lower extremity edemaLVH (left ventricular hypertrophy)08/05/2023 08/05/20238483Zhlfbupjwhdz84ositive fecal occult blood test Tubulovillous adenoma of colonEssential jlelrcjkiljl65/26/3755Usdomnrdktaqvv94/21/2020Takotsubo nmobmumbawllnk51/21/2020 Paroxysmal atrial pdhfboqilbpj93/03/2019 Encounters DateTypeDepartmentCare BceuRkuynsmnzbj85/28/2025 2:30 PM EDTOffice Visit [place] [address] [facility] [place] [address] Zeb Chicas MD Persistent atrial fibrillation (CMS/HCC) (Primary Dx)07/03/2025Orders Only [place] [address] [place] [facility] [place] [address] Nancy Davila MA LVH (left ventricular hypertrophy) (Primary Dx); Acute combined systolic and diastolic heart failure (CMS/HCC)06/07/2025Telephone [facility] [address] [place] [facility] [place] [address] Fabienne Vidal MA 05/17/2025Telephone [facility] [address] [place] [facility] [place] [address] Ashley Tran MA 05/17/2025Orders Only [facility] [address] [place] [facility] [place] [address] Ashley Tran MA Abnormal PFT (Primary Dx)from Last 3 Months Immunizations ImmunizationAdministration DatesNext DueInfluenza, Hruytlzpfkj42/24/2016 Influenza, trivalent, nncwalcwpp63/05/2020Moderna 12 YR UP Vaccine BiValent Xfnzbsq1108/28/2021,11/14/2020,10/18/2020Novel vbnmokqwc-S2X6-58, preservative-free09/14/2009Pneumococcal Conjugate PCV 13109/25/2016Pneumococcal Polysaccharide KOV0701 Family History Medical HistoryRelationNameCommentsNo Known ProblemsFatherNo Known Problems MotherRelationNameStatusCommentsFatherDeceasedMotherDeceased Social History Tobacco UseTypesPacks/DayYears UsedDateSmoking Tobacco: FormerCigarettes Smokeless Tobacco: Never Tobacco Cessation:Counseling Given: Not Answered Alcohol UseStandard Drinks/WeekCommentsYes0 (1 standard drink = 0.6 oz pure alcohol)occasionalUT Safety & EnvironmentAnswerDate RecordedFear of Current or Ex-PartnerNot on file10/28/2023Emotionally AbusedNot on file10/28/2023hysically AbusedNot on file10/28/2023Sexually AbusedNot on file10/28/2023hysically or Sexually AbusedNot on file10/28/2023CommentsUnknownSex and Gender InformationValueDate RecordedSex Assigned at LnzuuYmboug29/01/2025 2:27 PM EDT Legal YuvKyezfo99/30/2022 12:14 AM EDTGender EtgdtvjfImnmhm70/01/2025 2:27 PM EDTSexual OrientationHeterosexual or Gjoddlzd09/01/2025 2:27 PM EDT Last Filed Vital Signs Vital SignReadingTime TakenCommentsBlood Drjhhpsr924/8210 2:27 PM EDT Xrlcp3353 2:27 PM EDTTemperature--Respiratory Rate--Oxygen Jybiacavzg70% 07/03/2025 2:27 PM EDTInhaled Oxygen Concentration--Mssfqy41.8 kg (156 lb) 07/03/2025 2:27 PM XMSBorwsw046.9 cm (4' 11 )07/03/2025 2:27 PM EDTBody Mass Index31.511 2:27 PM EDT Plan of Treatment Health MaintenanceDue DateLast DoneCommentsMedicare Annual Wellness (AWV) 2Depression Ojlmtcpau85/04/1954dult Dovnsyw5803/09/1964Fall Risk Znhfbbnor33/04/2007COVID-19 Vaccine ( season)512/, 11/14/2020, 10/18/2020Influenza Vaccine (#1)511/, 07/11/2020, 06/29/2016, Additional history existsPneumococcal Vaccine: 50+ YearsCompleted 07/26/2017, 06/29/2016Zoster NqowiygmBbzihoqel73/11/2025, 03/15/2025HIB Vaccines Aged OutNo longer eligible based on patient's age to complete this topicHPV VaccinesAged OutNo longer eligible based on patient's age to complete this topic IPV VaccinesAged OutNo longer eligible based on patient's age to complete this topicMeningococcal B VaccineAged OutNo longer eligible based on patient's age to complete this topicMeningococcal VaccineAged OutNo longer eligible based on patient's age to complete this topicRotavirus VaccinesAged OutNo longer eligible based on patient's age to complete this topic Insurance Care Teams Team MemberRelationshipSpecialtyStart DateEnd Date Kole Servin MD [address] [facility] [place] [address] [facility] - General05/28/22
--- OUTSIDE RECORDS SUMMARY | 2025-07-11 08:08 | XMS_ITS | Encounter Summary ---
Author Organization [facility] Address [address] [place] [address] Care Team Providers Care Supervisor Clam Bed Name Role Phone Kole Servin MD Primary Care Provider [phone] Encounter Details DateTypeDepartmentCare Team (Latest Contact Info)Urzulyfumwy76/29/2024Clinisync Result Encounter [facility] Unsolicited Meera Aguayo PA [address] [place] [address] [place] [address] Social History Tobacco UseTypesPacks/DayYears UsedDateSmoking Tobacco: Never Assessed CommentsNoSex and Gender InformationValueDate RecordedSex Assigned at BirthNot on fileLegal ZrgEfstwz61/01/2023 9:01 AM EDTGender IdentityNot on fileSexual OrientationNot on filedocumented as of this encounter Plan of Treatment Not on file documented as of this encounter Procedures Procedure NamePriorityDate/TimeAssociated DiagnosisCommentsXR DEXA AXIAL LUPUZPLI30/29/2024 9:09 AM EDT documented in this encounter Results * XR DEXA AXIAL SKELETON (04/03/2024 9:09 AM EDT)Anatomical RegionLaterality ModalityOtherSpecimen (Source)Anatomical Location / LateralityCollection Method / VolumeCollection TimeReceived Time04/03/2024 9:09 AM EDT Narrative 04/03/2024 9:12 AM EDT [facility] ?[address] ? [place] [address] ?XRay Report ? Signed ? Patient: KUCHTA,NEREIDA P ?MR#: [id number] ?? : 1940 ?Acct:[id number] ?? Age/Sex: 84 / F ?ADM Date: 07/29/24 ?? Loc: RAD ? Attending Dr: Meera Aguayo ? Ordering Physician: Meera Aguayo ?? Date of Service: 04/03/24 ?? Procedure(s): XR DEXA axial skeleton ?? Accession Number(s): [id number] ? cc: Meera Aguayo; Kole Servin M.D. ? [facility] ? [address] ? [place] [address] ? Patient Name: ?? NEREIDA Caryn DAKOTA ? MRN: [facility]:[id number] ? date: 1940 ?Sex: F ?? Assigned Patient Location: RAD ?? Current Patient Location: RAD ?? Accession/Order Number: [id number] ?? Exam Date: 04/03/2024 ??07:45 ?Report Date: 04/03/2024 ??09:09 ? At the request of: ?? MEERA ??OLIVIER ? Procedure: ??XR DEXA axial skeleton ? EXAMINATION: XR DEXA axial skeleton ? 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 COMPARISON: DEXA bone densitometry 01/04/2022 ? TECHNIQUE: Dual-energy X-ray absorptiometry (DXA) was performed. ? FINDINGS: ?? SPINE ANALYSIS: ?? Average bone mineral density is 1.046 g/cm2. ?? T-score (standard deviation relative to young adult mean): -1.1 . ?? (Not previously evaluated.) ? HIP ANALYSIS: ?? Lowest bone mineral density is within the right femoral neck, 0.680 g/cm2. ?? T-score (standard deviation relative to young adult mean): -2.6 . ?? -0.7% change since prior study. ? XR/XR DEXA axial skeleton ?? IMPRESSION: ? World Health Organization Classification: Osteoporosis - High Fracture Risk ?? FRAX: Not able to calculate. ? Pharmacologic treatment recommendations ?? * No uniform recommendation applies to all patients. Management plans must be ?? individualized. ?? * Consider initiating pharmacologic treatment in postmenopausal women and men ?? >= 50 years of age who have the following: Primary fracture prevention: ?? * T-score <= - 2.5 at the femoral neck, total hip, lumbar spine, 33% radius (some uncertainty with existing data) by DXA. ?? * Low bone mass (osteopenia: T-score between - 1.0 and - 2.5) at the femoral ?? neck or total hip by DXA with a 10-year hip fracture risk >= 3% or a 10-year major osteoporosis-related fracture risk >= 20% (i.e., clinical vertebral, hip, ?? forearm, or proximal humerus) based on the US-adapted FRAXregistered model. ?? Secondary fracture prevention: ?? * Fracture of the hip or vertebra regardless of BMD [4, 5]. ?? * Fracture of proximal humerus, pelvis, or distal forearm in persons with low ?? bone mass (osteopenia: T-score between - 1.0 and - 2.5). The decision to treat ? should be individualized in persons with a fracture of the proximal humerus, ?? pelvis, or distal forearm who do not have osteopenia or low BMD [12, 13]. ?? Jovany MS, Cesar SL, Brandee KL, Vita EM, Melba KG, AJ, Mitali ?? ES. ?? The clinician's guide to prevention and treatment of osteoporosis. Osteoporos ?? Int. 2021;33(10):4586-0208. doi: 10.1007/x83434-379-24074-e. Ep2021 ? 28. Erratum in: Osteoporos Int. 2021Apr 02;: PMID: 56409936; PMCID: ?? [id number]. ? Electronically authenticated by: ELADIO ??ALEKSEY ?? Date: 04/03/2024 ??09:09 ? Dictated By: ?Eladio Matthews M.D. ? Signed By: ?04/03/24 0912 ? DD/ 0909 ? TD/TT: ? Supply Teacher: Procedure Note Radiology, Radiologist, MD - 04/03/[address] [address] XRay Report Signed Patient: NEREIDA AGOSTO PMR#: [id number] : 2Acct:[id number] Age/Sex: 84 / FADM Date: 04/03/24 Loc: RAD Attending Dr: Meera Aguayo Ordering Physician: Meera Aguayo Date of Service: 04/03/24 Procedure(s): XR DEXA axial skeleton Accession Number(s): [id number] cc: Meera Aguayo; Kole Servin M.D. [place] [address] Patient Name: NEREIDA AGOSTO MRN: [facility]:[id number] date: 1940 Sex: F Assigned Patient Location: [facility] Current Patient Location: [facility] Accession/Order Number: [id number] Exam Date: 04/03/2024 07:45 Report Date: 04/03/2024 [...] 10-year hip fracture risk >= 3% or x59-lmul major osteoporosis-related fracture risk >= 20% (i.e., [...] to prevention and treatment of osteoporosis.Osteoporos Int. 2021;33(10):8579-2910. doi: 10.1007/t33960-984-79775-e. Epub . Erratum in: Osteoporos Int. 2021Apr 02;: PMID: [id number]; PMCID: [id number]. Electronically authenticated by: ELADIO MATTHEWS Date: 04/03/2024 09:09 Dictated By: Eladio Matthews M.D. Signed By:04/03/24911 DD/ 8 TD/TT: Supply Teacher: Authorizing ProviderResult TypeResult StatusAmy Labadie PACLINISYNC IMAGINGFinal Result documented in this encounter Visit Diagnoses Not on filedocumented in this encounter Care Teams Team MemberRelationshipSpecialtyStart DateEnd Date Kole Servin MD [address] [place] [address] PCP - GeneralFamily Medicine04/06/23documented as of this encounter
--- OUTSIDE RECORDS SUMMARY | 2025-07-11 08:09 | XMS_ITS | Encounter Summary ---
Author Organization [facility] Address [address] [place] [address] Care Team Providers Care Junior Designer Name Role Phone Kole Servin MD Primary Care Provider [phone] Encounter Details DateTypeDepartmentCare Team (Latest Contact Info)Ijrakdtpycu20/28/2025Orders Only [facility] [address] [place] [address] Nancy Davila MA LVH (left ventricular hypertrophy) (Primary Dx); Acute combined systolic and diastolic heart failure (CMS/HCC) Social History Tobacco UseTypesPacks/DayYears UsedDateSmoking Tobacco: FormerCigarettes Smokeless Tobacco: NeverAlcohol UseStandard Drinks/WeekCommentsYes0 (1 standard drink = 0.6 oz pure alcohol)occasionalUT Safety & EnvironmentAnswerDate Recorded Fear of Current or Ex-PartnerNot on file10/28/2023Emotionally AbusedNot on file 10/28/2023hysically AbusedNot on file10/28/2023Sexually AbusedNot on file 4Physically or Sexually AbusedNot on file4Comments UnknownSex and Gender InformationValueDate RecordedSex Assigned at BirthFemale 04/06/2025 2:27 PM EDTLegal YwyUexrhp16/30/2022 12:14 AM EDTGender Identity Hbrshq0504/06/2025 2:27 PM EDTSexual OrientationHeterosexual or Podruogs07/01/2025 2:27 PM EDTdocumented as of this encounter Functional Status * BPAnswerDate of AvercpyqnsWzbury531/8210/ 2:27 PM Fabienne Jin MA * PulseAnswerDate of IydfghkijbFukvfk3538/ 2:27 PM Fabienne Jin MA * Patient PositionAnswerDate of DekrntbaisQsyvyvGuolvvs87/28/2025 2:27 PM EDT Fabienne Vidal MA * BPAnswerDate of SqtkfxkcdrMqydca586/8210 2:27 PM Fabienne Jin MA * PulseAnswerDate of LxwgqvogdhUzvbmp3494 2:27 PM Fabienne Jin MA * OvW1JgeqpyFldd of NyxfdtlwwiDppuhh9320/28/2025 2:27 PM Fabienne Jin MA * BP LocationAnswerDate of AssessmentAuthorLeft arm07/03/2025 2:27 PM EDT Fabienne Vidal MA * Patient PositionAnswerDate of CuodgvwiedVqjufsCqegidh96/28/2025 2:27 PM EDT Fabienne Vidal MA documented as of this encounter Plan of Treatment NameTypePriorityAssociated DiagnosesOrder ScheduleLexiscan Stress Myocardial Perfusion ImagingCardiac ServicesRoutine LVH (left ventricular hypertrophy) Acute combined systolic and diastolic heart failure (CMS/HCC) Expected: 07/03/2025 (Approximate), Expires: 07/03/2027documented as of this encounter Visit Diagnoses Diagnosis LVH (left ventricular hypertrophy)- Primary Cardiomegaly 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
--- OUTSIDE RECORDS SUMMARY | 2025-07-11 08:09 | XMS_ITS | CCD ---
Author Organization [facility] Care Team Providers Care Building Performance Specialist Name Role Phone PETER LEE Referring Unavailable KOLE KAUR Primary Care Unavailable CHAPITO SHIPLEY Attending Unavailable MARIN SHIPLEYMED Admitting Unavailable [place] Procedure Practitioner Unavailab SILVIANO Rendon Surgeon Unavailable EL[place]HAWY, EHAB A Admitting Unavailable PALMA, EHAB A Attending Unavailable KOLE KAUR Referring Unavailable KOLE KAUR Primary Care Unavailable HOY ., DR CASEY Admitting Unavailable HOY ., DR CASEY Primary Care Unavailable HOY ., DR CASEY Consulting Unavailable HOY ., DR CASEY Attending Unavailable HOY ., DR CASEY Admitting Unavailable HOY ., DR CASEY Primary Care Unavailable HOY ., DR CASEY Consulting Unavailable HOY ., DR CASEY Attending Unavailable KIOWA, DR KELSI Aguirre Consulting Unavailable ZIEBER, DR DUDLEY Lee Consulting Unavailable HOY ., DR CASEY Admitting Unavailable HOY ., DR CASEY Primary Care Unavailable HOY ., DR CASEY Attending Unavailable HOY ., DR CASEY Admitting Unavailable HOY ., DR CASEY Primary Care Unavailable HOY ., DR CASEY Consulting Unavailable HOY ., DR CASEY Attending Unavailable Kole Kaur Primary Care Physician MD Rashi John Attending Provider [phone] Rashi John Attending Unavailable Rashi John Admitting Unavailable Harmony Bettencourt Attending Unavailable Harmony Bettencourt Attending Unavailable Rashi JOHN Attending Unavailable Rashi JOHN Attending Unavailable Rashi JOHN Attending Unavailable Harmony Bettencourt Admitting Unavailable Harmony Bettencourt Attending Unavailable Harmony Bettencourt Referring Unavailable Harmony Bettencourt Attending Unavailable Kole Kaur MD Primary Care Provider [phone] Kole Kaur MD Primary Care Provider [phone] MEERA JIMENEZ Attending Unavailable ZEB ALVARADO Attending Unavailable KHANG LORENZO Attending Unavailable Kole Kaur MD Primary Care Provider [phone] Allergies Allergy ClassificationReported Allergen(s)Allergy TypeDate of OnsetReaction(s) Facility (9 sources)Sulfonamides (Antibiotic); Translations: [sulfa drugs]Drug allergy Unknown (qualifier value)General Surgery Anneliese (2 sources)Sulfonamides (Antibiotic); Translations: [SULFA (SULFONAMIDE ANTIBIOTICS)]Drug allergy (disorder)59-42-5085[facility]qluaefroGood [facility] Rep[facility] (2 sources)ALPRAZolam; Translations: [Xanax]Drug AllergyCleveland [facility] Repository (5 sources)Alprazolam; Translations: [ALPRAZOLAM]Allergy to flxcnehcv84-38-5049 UnknownNOCT Healthcare (4 sources)Sulfonamides (Antibiotic)Drug Uygfvbn92-88-5821Wgmpy, Unknown, Rash [facility] Medications Current Medications MedicationDrug Class(es)DatesSig (Normalized)Sig (Original)amiodarone hydrochloride 100 mg oral tablet (2 sources)AntiarrhythmicStart: 96-87-4783jtfh 100 mg by mouth once daily in the morningAmiodarone Active 100 MG PO Every morning February 06, 2020 12:00am Start: 02-02-2020 End: 33-13-1063wcat 200 mg by mouth once dailyAmiodarone Discontinued 200 MG PO Daily February 02, 2020 12:00am February 06, 2020 12:53pmapixaban 5 mg oral tablet (12 sources)Factor Xa InhibitorStart: 73-47-3789gqzr 1 tablet by mouth twice dailyaspirin 81 mg delayed release oral tablet (6 sources)Platelet Aggregation Inhibitor, Nonsteroidal Anti-inflammatory Drug Start: 45-24-8787ongf 1 tablet by mouth once dailyaspirin 81 mg Oral EC Tab 81 mg = 1 tab(s), Oral, Daily, Refills(s) 0, Prophylaxis Start Date: 03/15/24 Status: OrderedStart: 12-14-2017 End: 94-54-5030sotf 81 mg by mouth once dailyAspirin Discontinued 81 MG PO Daily December 14, 2017 12:00am February 02, 2020 1:51pmcarvedilol 12.5 mg oral tablet (13 sources)alpha-Adrenergic Elvin, beta-Adrenergic BlockerStart: 01-22-2023 take 1 tablet by mouth twice dailycarvedilol 12.5 mg Tab 12.5 mg = 1 tab(s), Oral, BID, Refills(s) 0, High blood pressure Start Date:01/22/23 Status: Ordered Start: 61-17-2846lgcd 3.125 mg by mouth twice daily at mealtimeCarvedilol Active 3.125 MG PO Twice daily with meals 60 February 06, 2020 12:00amStart: 02-02-2020 End: 46-68-1658dwfa 6.25 mg by mouth twice dailyCarvedilol Discontinued 6.25 MG PO Twice daily February 02, 2020 12:00am February 06, 2020 12:53pmestradiol 0.1 mg/ml vaginal cream (1 source)EstrogenStart: 66-52-1721xzfkkfpnz (Estrace) 0.1 MG/GM vaginal cream Indications: Well woman exam with routine gynecologicalexam , Encounter for screening mammogram for malignant neoplasm of breast 2g vaginal daily for 2 wee ks, then 2 times weekly following initial 2 weeks 42.5 g 05/02/2025 ActiveStart: 77-80-5343koowcswox (Estrace) 0.1 MG/GM vaginal cream Indications: Well woman exam with routine gynecologicalexam , Encounter for screening mammogram for malignant neoplasm of breast 2g vaginal daily for 2 weeks, then 2 times weekly following initial 2 weeks 42.5 g 05/02/2025 Activeferrous sulfate 325 mg oral tablet (3 sources)Start: 84-29-7966lgwz 1 tablet by mouth twice dailyferrous sulfate 325 mg Tab 325 mg = 1 tab(s), Oral, BID, Refills(s) 0 Start Date: 01/22/23 Status: OrderedStart: 58-80-5594nfws 325 mg by mouth every other dayFerrous Sulfate Active 325 MG PO Q2D February 06, 2020 12:00amfurosemide 20 mg oral tablet (8 sources)Loop DiureticStart: 66-09-2504oysi 1 tablet by mouth once daily furosemide (Lasix) 5 MG split tablet (4 sources)Start: 03-98-6264zyvz 4 tablets by mouth oncefurosemide (Lasix) 5 MG split tablet Take 20 mg by mouth 1 (one) time. 07/19/2022 ActivehydrOXYzine pamoate 25 mg oral capsule (1 source)AntihistamineStart: 37-35-2722Boulstpmsyg Pamoate Active 25 MG PO every 6 to 8 hours February 06, 2020 12:00am 1 to 2 tablets as needed for spasm levothyroxine sodium 0.05 mg oral tablet (12 sources)l-ThyroxineStart: 04-67-6007zixb 1 tablet by mouth once dailyStart: 68-51-2381stjn 1 tablet by mouth before mealtimeSynthroid 50 MCG tablet Take 50 mcg by mouth in the morning. Take before meals. 01/22/2023 Activelisinopril 20 mg oral tablet (12 sources)Angiotensin Converting Enzyme InhibitorStart: 79-98-1527mdoz 1 tablet by mouth in the morninglisinopril 20 MG tablet Take 20 mg by mouth in the morning. 07/02/2022 ActiveStart: 61-12-8465uznz 5 mg by mouth once daily Lisinopril Active 5 MG PO Daily February 02, 2020 12:00ammeclizine hydrochloride 25 mg oral tablet (11 sources)AntiemeticStart: 83-46-8692grur 1 tablet by mouth twice daily meclizine 25 mg Tab 25 mg = 1 tab(s), Oral, BID, Refills(s) 0 Start Date: 02/02/23 Status: Orderednystatin 100 unt/mg topical powder (1 source)Polyene AntifungalStart: 05-02-2025 End: 18-00-5959qylpvfot (Mycostatin) 662034 UNIT/GM powder Indications: Tinea Apply topically in the morning and in the evening and before bedtime. 15 g 05/02/2025 05/02/2026 ActiveoxyCODONE hydrochloride 5 mg oral tablet (1 source)Opioid AgonistStart: 31-26-1782uxiz 1 tablet by mouth every four to six hours as neededOxycodone Active 5 MG PO EVERY 4-6 HOURS 30 7 February 06, 2020 5 mg 1to2 tablets orally as neededspironolactone 25 mg oral tablet (4 sources)Aldosterone AntagonistStart: 08-05-2023 End: 23-48-8548thwfyzuoaanbvr (Aldactone) 25 MG tablet Take 12.5 mg by mouth in the morning. 08/05/2023 5Active Completed/Discontinued Medications MedicationDrug Class(es)DatesSig (Normalized)Sig (Original)acetaminophen 325 mg / oxyCODONE hydrochloride 5 mg oral tablet (1 source)Opioid AgonistStart: 01-20-2018 End: 43-08-0924houx 1 tablet by mouth every four to six hoursOxycodone- Acetaminophen (Percocet) 5-325 mg tablet Discontinued 1 TAB PO EVERY 4-6 HOURS January 20, 2018 February 02, 2020 1:51pmalendronic acid 70 mg oral tablet (7 sources)BisphosphonateStart: 23-54-1039nubf 1 tablet by mouth every week amLODIPine 10 mg / benazepril hydrochloride 20 mg oral capsule (2 sources)Dihydropyridine Calcium Channel Elvin, Angiotensin Converting Enzyme InhibitorStart: 12-15-2017 End: 99-40-0579givd 1 capsule by mouth once dailyAmlodipine-Benazepril Discontinued 1 CAP PO Daily December 15, 2017 12:00am February 02, 2020 1:51pmStart: 12-14-2017 End: 82-06-1770ezfi 1 capsule by mouth once dailyAmlodipine-Benazepril (Lotrel) 5-10 mg Capsule Discontinued 1 CAP PO Daily December 14, 2017 12:00amApril 2017 11:20ambiotin 10 mg oral capsule (1 source)Start: 12-15-2017 End: 15-01-2106pxyg 52265 ug by mouth once dailyBiotin Discontinued 86426 MCG PO Daily December 15, 2017 12:00am February 02, 2020 1:51pmC,E,Zinc,Copper 04-Xivzh3s-Tql (Ocuvite Adult 50 Plus) 250-5-1 mg Capsule (1 source)Start: 12-14-2017 End: 02-02-2020C,E,Zinc,Copper 22-Hyppt8y-Fff (Ocuvite Adult 50 Plus) 250-5-1 mg Capsule Discontinued 250 MG PO Daily with breakfast December 14, 2017 12:00am February 02, 2020 1:51pmcalcium carbonate 1500 mg oral tablet (1 source)Start: 12-15-2017 End: 67-69-1355dqjr 1 tablet by mouth once dailyCalcium Carbonate (Calcium 600) 600 mg calcium (1,500 mg) Tablet Discontinued 600 MG PO Daily 2017 12:00am February 02, 2020 1:51pmcholecalciferol 0.01 mg oral tablet (5 sources)Vitamin DStart: 12-15-2017 End: 32-77-5846tbdb 2 tablets by mouth once dailyCholecalciferol (Vitamin D3) (Vitamin D3) 400 unit Tablet Discontinued 800 UNIT PO Daily December 15, 2017 12:00am February 02, 2020 1:51pmtake 1 capsule by mouth in the morning cholecalciferol (Vitamin D-3) 25 MCG (1000 UT) capsule Take 1,000 Units by mouth in the morning. Activepotassium chloride 20 meq extended release oral tablet (8 sources)Start: 71-27-8298lefc 1 tablet by mouth once dailypotassium chloride 20 mEq ER Tab 20 mEq = 1 tab(s), Oral, Daily, Refills(s) 0, Prophylaxis Start Date: 01/22/23 Status: OrderedSalmon Oil-[place]-3 Fatty Acids ([place] Oil-1000) 1,000-200 mg Capsule (1 source)Start: 12-15-2017 End: 71-85-6462Ambcvl Oil-[place]-3 Fatty Acids ([place] Oil-1000) 1,000-200 mg Capsule Discontinued 2000 MG PO DailyApr2017 12:00am February 02, 2020 1:51pm Problems Active Problems Problem ClassificationProblemDateDocumented DateEpisodic/ChronicCancer of colon (5 sources)History of malignant neoplasm of colon; Translations: [Personal history of other malignant neoplasmof large intestine]Onset: 93-37-3736Wzzovtpp Cardiac dysrhythmias (12 sources)Unspecified atrial fibrillation; Translations: [Atrial fibrillation] Onset: 982184-42-8945FcmykwfOxkhjhzwlt heart failure; nonhypertensive (8 sources)Unspecified diastolic (congestive) heart failure; Translations: [Congestive heart failure]Onset: 766512-99-5582EyzfjrdOqtkqxbnd of lipid metabolism (1 source)Hyperlipidemia, unspecified; Translations: [HYPERLIPIDEMIA UNSPECIFIED]Onset: 47-62-5397GviwfmeCvhnlelvg hypertension (8 sources)Hypertensive disorder; Translations: [Essential (primary) hypertension]84-47-8516AhfpgqxTfsnrtqa of neck of femur (hip) (2 sources)Intertrochanteric fracture; Translations: [Displaced intertrochanteric fracture of left femur, initial encounter for closed fracture] 43-24-3632IysknklmEcvobhra of upper limb (1 source)Fracture of humerus ; Translations: [Unspecified fracture of shaft of humerus, left arm, initial encounter for closed fracture]33-26-0202HsndhndwMzoid valve disorders (7 sources)Aortic valve khmfihwxloxnd22-85-8837CmcsdetHzgxfhkktlst with complications and secondary hypertension (1 source)Hypertensive heart disease with heart failure; Translations: [HTN HEART DISEASE W/HEART FAIL]Onset: 43-71-3378BmzcgeaBpdtlatnji disorders (2 sources)Other primary ovarian failure; 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]Onset: 117318-02-3275HmporbqGnlkytf (1 source)Dermatophytosis; Translations: [Dermatophytosis, unspecified] 78-24-3435VyxatscyVwwxvqeyrcfa (12 sources)Age-related osteoporosis without current pathological fracture; Translations: [Osteoporosis]Onset: 813280-08-4745CynufogEsxve aftercare (1 source)Drug therapy finding; Translations: [snf (current) use of anticoagulants]60-71-5701PrypeiawPdvie and ill-defined heart disease (1 source)Cardiomegaly; Translations: [CARDIOMEGALY]Onset: 66-14-3737Ifnqcxh Other and ill-defined heart disease (7 sources)Left atrial ydpeoxibrpq60-10-9287WolcssyGquuj and ill-defined heart disease (7 sources)Left ventricular xltkhaxtgkq79-42-7902RdofdfmUxxet and ill-defined heart disease (5 sources)Kvjzldezfsnh32-14-5171RfleityJeqlg and ill-defined heart disease (1 source)Takotsubo cardiomyopathy; 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]08-18-2023 ChronicOther and unspecified benign neoplasm (4 sources)Benign neoplasm of colon; Translations: [Benign neoplasm of colon, unspecified]Onset: 59-65-4380YuyjmjqcFcbnm and unspecified benign neoplasm (6 sources)Adenomatous polyp of suqhl42-13-6153QovixyccBjndf and unspecified benign neoplasm (6 sources)History of polyp of colon; Translations: [Personal history of colonic polyps]Onset: 65-27-2985WcvesglzBviyy gastrointestinal disorders (1 source)Abnormal feces; Translations: [Other fecal abnormalities]Onset: 19-21-1190YqjbaictHonsx gastrointestinal disorders (7 sources)Occult blood in ebjmwm56-23-6394HwlxuxuaKpowy injuries and conditions due to external causes (1 source)Injury of head; Translations: [Unspecified injury of head, initial encounter]79-82-2508DleykybuTqwxy non-traumatic joint disorders (1 source)Pain in right knee; Translations: [Right knee pain]01-15-8220Llxqkoos Other nutritional; endocrine; and metabolic disorders (7 sources)Body mass index 30+ - jhesfvt75-68-7176XyfnaokQizhw nutritional; endocrine; and metabolic disorders (5 sources)Obesity caused by energy oaquijtaj19-93-5624YagvnvoGprep nutritional; endocrine; and metabolic disorders (1 source)Obese class I; Translations: [Body mass index (BMI) 32.0-32.9, adult] Onset: 92-99-3768ZovkojlHqley screening for suspected conditions (not mental disorders or infectious disease) (5 sources)Encounter for screening mammogram for malignant neoplasm of breast; Translations: [Patient encounter status]Onset: 15-28-8088CyilsfxxPxnq-; endo-; and myocarditis; cardiomyopathy (except that caused by tuberculosis or sexually transmitted disease) (7 sources)Bbgsgirvtakcbu24-92-2356GhurshaTrautheu codes; unclassified (7 sources)Edema of lower lzvdcaddr63-40-5108WwaqlvfbOovpmvs (1 source)Vasovagal syncope; Translations: [Syncope and collapse]08-18-2023 EpisodicThyroid disorders (8 sources)Hypothyroidism, unspecified; Translations: [Hypothyroidism]Onset: 122234-18-3746GlzkpotRhfsbmvnvmkz (2 sources)Other persistent atrial fibrillation; Translations: [Other persistent atrial fibrillation]Onset: 07-03-2025 Past or Other Problems Problem ClassificationProblemDateDocumented DateEpisodic/ChronicCardiac dysrhythmias (3 sources)ECG: sinus bradycardia; Translations: [Bradycardia, unspecified] Onset: 851412-56-3084XtgupminWnqjwqgats and other anemia (1 source)Anemia, unspecified; Translations: [ANEMIA UNSPECIFIED]Onset: 92-80-8993YnchhytqYgbqknkq mellitus without complication (1 source)Other abnormal glucose; Translations: [OTHER ABNORMAL GLUCOSE]Onset: 19-36-0928ExymapgaFtbck injuries and conditions due to external causes (1 source)History of falling; Translations: [HISTORY OF FALLING]Onset: 92-82-9398EkozfthmXbiwq lower respiratory disease (2 sources)Shortness of breath; Translations: [Shortness of breath]Onset: 93-32-6999Ikibzgbq Results Test NameValueInterpretationReference RangeFacilityOffice Visiton 07-03-2025 Follow-up [id number] Nereida Agosto 1940 F Date Provider Department Center 07/03/2025 241-ZEB ALVARADO CARD [facility] Family History Problem Relation Age of Onset No Known Problems Mother No Known Problems Father Family Status - Relation Status Age at Mother Father Level of Service:48033 [place] OFFICE/OUTPATIENT NEW MODERATE MDM 45 MINUTES Reason for Visit and Comments: Follow-up [10991106] - Patient is here today per Jasmina Abbott request. Patient had recent Echo, PFT. Had labs today before apt. Atrial Fibrillation [80] Cardiomyopathy [104] - Takotsubo Hypertension [253187] LVH [Other] Cardiomegaly [Other] Left atrial enlargement [Other] Shortness of Breath [100697] - Patient complains of increased SOB/BOOTH Palpitations [308474] - Palpitations/racing heartNormalUniversity of Texas Health Frisco36on 20-03-759575Ouhyjxu Tucker, KAILEY Vidal MA Please let her know her ECHO showed no changes in heart function, no signifcant valve abnormalities. Recommend follow-up with Dr. Alvarado as planned to review if a.fib is the culprit of her sx's. Thank you Spoke to patient to advise her of Echo results per Jasmina Lorenzo. Patient verbalized understand and will be seeing [facility]ado [facility] 03[facility] 92-91-267997PZZ [facility] PULM PT NEEDS CHEST XRAY FOR APPT ON 06/04/25. [facility]Or[facility] Onlyon 26-87-0257Athiio [id number] Nereida Agosto P 1940 F Date Provider Department Center 05/17/2025 895-MACKENZIE CRAFT CARD [facility] Family History Problem Relation Age of Onset No Known Problems Mother No Known Problems Father Family Status - Relation Status Age at Mother FatherNormalUniSuburban Community Hospital & [facility]36on 19-29-487658Tswltxb Tucker, CNP to Me (Selected Message) [place] 03/20/25 2:27 PM Note Please let her know her lung function testing appears worse than previously that I have available for review. Please refer her to pulmonary for further evaluation. Thank you Pulmonary function testing Advised patient of PFT results. Patient verbalized understanding and requested [facility] Referral sentNoPremier Health Miami Valley Hospital SouthResults Follow-Upon 00-35-9631Yejcumm Follow-[id number] Nereida Agosto P 1940 Date Provider Department Center 03/20/2025 KHANG SALEH CARDIOLOGY None Family History Problem Relation Age of Onset No Known Problems Mother No Known Problems Father Family Status - Relation Status Age at Mother FatherNormalUniSuburban Community Hospital & Brentwood HospitalOrders Onlyon 13-02-4002Gompgy [id number] Nereida Agosto P 1940 F Date Provider Department Center 03/15/2025 [id number], FABIOLA CARD [facility] Family History Problem Relation Age of Onset No Known Problems Mother No Known Problems Father Family Status - Relation Status Age at Mother FatherMercy Memorial HospitalOffice Visiton 89-49-4458Qbsmcw- up [id number] Nereida Agosto P 1940 F Date Provider Department Center 02/15/2025 166KHANG RAI CARD [facility] Family History Problem Relation Age of Onset No Known Problems Mother No Known Problems Father Family Status - Relation Status Age at Mother Father Level of Service:63123 [place] OFFICE/OUTPATIENT ESTABLISHED MOD MDM 30 MIN Reason for Visit and Comments: Shortness of Breath [572824] Atrial Fibrillation [80]NormalUnSCCI Hospital LimaCCF CALCIUMon 80-73-6218Xjxwetw [Mass/Vol]9.4 mg/dL8.5 - 10.1 mg/dLNOCT HealthcareNo Panel Informationon 55-19-1955FYMYTOFCJDTJO HealthcareTB CREATININEon 11-15-2024 Creatinine [Mass/Vol]1.32 mg/dLHigh0.55 - 1.02 mg/dLNOCooper County Memorial HospitalGFR/1.73 sq M.predicted CKD-EPI (S/P/Bld) [Vol rate/Area]47Low>=60 mL/min/1.73m 2NOMS HealthcareInterpretation and review of laboratory resultsAbnormLifecare Hospital of Pittsburgh TB EGFR-NON AF SAKSZPCN82Pkm>=60 mL/min/1.73m 2NOMS HealthcareGastroenterology Office/Clinic Noteon 38-32-7378Zpgqpofbdzzjenee Office/Clinic Note Gastroenterology Office/Clinic Note Chief Complaint [...] 06/29/2016 Recorded influenza, unspec (more content not included)...[facility] CenterComment on above:Result Comment: Electronically Signed By: Rut AHMADI, Harmony Jay\.br\Date and Time Signed: 09/28/2508:23 ESTReminderson 09-26-2024 RemindersReminders From: Uyen Carnes To: [facility] - Reminders/Recalls; Sent: 09/26/2024 12:44:45 EST Show [...] SIGMOID COLON, POLYPECTOMY: HYPERPLASTIC COLONIC GLANDULAR MUCOSAL POLYPNormalCleveland Clinic [facility] Surgical Pathology Reporton [id number] Pathology Report[address] [address]- Surgical Pathology Report Collected Date/Time: 09/13/2024 11:37 [...] is entirely submitted in one cassette. (DC) DC:[facility] Microscopic Description Microscopic examination performed unless gross only specified.[facility] CenterComment on above:Performed By: #### [id number] #### [facility] [address] [place] [address]Dkdg OR Intraoperative Recordon 51-83-4162Aypr OR Intraoperative RecordMain OR Intraoperative Record IntraOp Document Type FT Summary Primary Physician: Harmony Bettencourt MD Finalized Date/Time: 09/14/24 14:42:48 Pt. Name: KATHERINEGINEREIDA D.O.B./Sex: 1940 Female Med Rec #: [id number] Physician: Harmony Bettencourt MD Financial #: [id number] Pt. Type: O Room/Bed: / Admit/Disch: 09/13/24 [...] 1 Entry 2 Entry 3 Case Attendee Freddie Hoskins MD, Shawn Lopez RN Role Performed Anesthesiologist Surgeon - Primary Wooden Tank Erector - Primary Planetarium Technician Time In 09/13/24 11:15:00 09/13/24 11:15:00 09/13/24 [...] Hoskins, Given Participants Rut AHMADI, Harmony Jay, Bruce BOWER, Eliezer Mata CST, Gini Santo Time Out Complete 09/13/24 [...] colon polypectomy Primary Procedure Yes Primary Surgeon Harmony Bettencourt MD Start 09/13/24 11:22:00 Stop 09/13/24 11:39:00 Anesthesia [...] prosthetics or corrective devic (more content not included)...[facility] CenterDischarge Instructionson 09-13-2024 Discharge InstructionsDischarge Instructions NEREIDA AGOSTO :1940 Visit Date:09/13/2024 Inpatient Discharge Instructions Your Care Team Admitting Physician - Harmony Bettencourt MD. Referring Physician - Harmony Bettencourt MD. Reason [...] Follow-Up Appointments 2024 8:30 AM EST With: Rut AHMADI, Harmony Jay Where: [facility] [address] [address]- New Follow Up Appointments after Discharge Follow Up with Rut AHMADI, Harmony Jay, [facility], [facility] When: Comments: -Office to call for pathology results. Call for any problems. [phone] Where: [address], [address] [place] [address] [phone] Business (1) Medications What How Much When [...] on caring for yourself after you leave thehospital. Your doctor may also give you specific [...] or on th (more content not included)...Normal [facility] HospitalComment on above:Result Comment: Electronically Signed By: [...] 13:33) Heart Rate Monitored 82 bpm (SEP 13:) Resp Rate 21 br/min (SEP 13:) SBP 131 mmHg (SEP 13:) DBP 78 mmHg (SEP 13:) Weight 73.5 kg (SEP 13:32) BMI 34.01 (SEP 13:32) General: in Nad Abdomen: Soft, NTND Impression and Plan Diagnosis: Recurrent cecal polyp colonoscopyThe University of Toledo Medical CenterMain OR PACU I Recordon 09-13-2024 Main OR PACU I RecordMain OR PACU I Record PACU Phase I Document Type FT Summary Primary Physician: Harmony Bettencourt MD Finalized Date/Time: 09/13/24 13:11:22 Pt. Name: NEREIDA AGOSTO /Sex: 1940 Female Med Rec #: [id number] Physician: Harmony Bettencourt MD Financial #: [id number] Pt. Type: O Room/Bed: / Admit/Disch: 09/13/24 [...] Signatures Signed By: Renetta Pickens RN 09/13/24 13:11NoPremier Health Miami Valley Hospital NorthMain OR Preoperative Recordon [id number] OR Preoperative RecordMain OR Preoperative Record Holding Area Document Type FT Summary Primary Physician: Harmony Bettencourt MD Finalized Date/Time: 09/13/24 09:36:21 Pt. Name: SURENDRANEREIDA /Sex: 1940 Female Med Rec #: [id number] Physician: Harmony Bettencourt MD Financial #: [id number] Pt. Type: O Room/Bed: / Admit/Disch: 09/13/24 [...] No Patient states Yes Comment - Adult [facility] postop adult Supervision supervision available Case Cancelled in No Holding Area see comments below for reason Last Modified By: Shawn Barrera RN 09/13/24 09:36:19 General Comments: pt finished bowel prep at 0730, per patient nothing to eat or drink since MSRN Finalized By: Shawn Barrera RN Document Signatures Signed By: Shawn Barrera RN 09/13/24 09:36[facility] CenterOperative Reporton [id number] ReportOperative Report Patient: NEREIDA AGOSTO Age: 84 years Sex: Female : 1940 Associated Diagnoses: None Author: Harmony Bettencourt MD Pre-Procedure Procedure Date 09/13/2024 11:43:00 . Procedure Type: Colonoscopy with removal of tumor(s), polyp(s), or other lesion(s) by cold snare technique, endoscopic mucosal resection. Procedure provider Performed by Harmony Bettencourt MD. Current history and physical Documented on chart. Colonoscopy ([id number]) on 04/26/2024 at 84 Years. Colonoscopy ([id number]) on 02/24/2023 at 82 Years. Tubal ligation ([id number]). Closed fracture of hip (757044630). Cardiac fluoroscopy (230280219).. Past Medical History No active or resolved past medical history items have been selected or recorded.. Family History Asthma Mother Renal cell carcinoma Brother . Procedure History Colonoscopy ([id number]) on 04/26/2024 at 84 Years. Colonoscopy ([id number]) on 02/24/2023 at 82 Years. Tubal ligation (600079168). Closed fracture of hip (485818240). Cardiac fluoroscopy (935430709).. Colorectal neoplasm risk assessment High risk Previous [...] 5. Normal terminal ileum Images Procedure images: Rec_hd_video___50_46_476.jpg Rec_hd_video___48_46_121.jpg Rec1_hd_video__T1_48_26_033.jpg Rec1_hd_video__T1_47_44_799.jpg Rec1_hd_video__T1_46_33_322.jpg Rec1_hd_video__T1_44_25_246.jpg Rec1_hd_video__T11_45_13_936.jpg Rec1_hd_video__T1_42_37_592.jpg Rec1_hd_video__T1_40_20_010.jpg Rec1_hd_video__T11_39_47_195.jpg Rec1_hd_video__T11_39_35_664.jpg Rec1_hd_video__T11_38_25_772.jpg Rec1_hd_video_T1_36_12_775.jpg . Post-Procedure Complications: none. Estimated blood loss: Minimal. Specimens: sent to pathology. De (more content not included)...[facility] CenterComment on above:Result Comment: Electronically Signed By: Rut AHMADI, Harmony Mckeon.br\Date and Time Signed: 09/13/2510:47 ESTOther Comment: Missing Attachment - attachment storage system not supported [id number] Can be viewed in source systemMissing Attachment - attachment storage system not supported [id number] Can be viewed in source systemMissing Attachment - attachment storage system not supported [id number] Can be viewed in source systemMissing Attachment - attachment storage system not supported [id number] Can be viewed in source systemMissing Attachment - attachment storage system not supported [id number] Can be viewed in source systemMissing Attachment - attachment storage system not supported 9036848 Can be viewed in source systemMissing Attachment - attachment storage system not supported [id number] Can be viewed in source systemMissing Attachment - attachment storage system not supported [id number] Can be viewed in source systemMissing Attachment - attachment storage system not supported 4530757 Can be viewed in sourcesystemMissing Attachment - attachment storage system not supported 5064580 Can be viewed in source systemMissing Attachment - attachment storage system not supported 6887091 Can be viewed in source systemMissing Attachment - attachment storage system not supported [id number] Can be viewed in source systemMissing Attachment - attachment storage system not supported 7908852 Can be viewed in source systemAmbulatory Visit Summaryon 60-93-8571Jhnwqlliyi Visit Summary Ambulatory Visit Summary NEREIDA AGOSTO :1940 Visit Date:06/08/2024 Ambulatory Visit Instructions Your Diagnosis Tubulovillous adenoma of colon History of colon cancer Your Care Team Attending Physician - Harmony Bettencourt MD Primary Care Physician - Kole Kaur MD This Is Your Medications List [...] PM EST With: Harmony Bettencourt MD Where: [facility] [address] [place] [address]- Medications What How Much When Instructions Unchanged [...] you for choosing us for your care. NormalFisher Thomas B. Finan CenterGastroenterology Office/Clinic Noteon 67-80-8183Npzdhgxytemzyjnf Office/Clinic NoteGastroenterology Office/Clinic Note Chief Complaint dr [...] vaccine 06/29/2016 Recorded influenza, unspecified formulation 06/29/2016 RecordedThe University of Toledo Medical CenterComment on above:Result Comment: Electronically Signed By: Rut AHMADI, Harmony Mckeon.br\Date and Time Signed: 06/08/2410:25 EDTGeneral Surgery Office/Clinic Noteon 63-01-7980Ycetbcx Surgery Office/Clinic NoteGeneral Surgery Office/Clinic Note Chief [...] E&M of Est. Patient Low 20-29 Min [address] [facility] [place] Referral Follow-up No qualifying data [...] 11/14/2020 Recorded SARS-CoV-2 (COVID-19) mRNA-1273 vaccine 10/18/2020 [facility] HospitalNoPremier Health Miami [facility] Hospital NorthComment on above:Result Comment: Electronically Signed By: ALVARO AHMADI, Rashi Weaver\Date and Time Signed: 05/10/24 13:55 EDTPathology Request for Lab Corpon 58-79-9367Jelgjuump Request for Lab CorpNormSumma Health Wadsworth - Ritt[facility] Medical Centere Firelands Physician GroupComment on above:Order Comment: PATHOLOGY GI SPECIMENResult Comment: See report. Scanned copy available in EMR. PERFORMED BY: [place] [address] PATHOLOGIST COSMETICIAN JAVIER GOODE M.D.Performed By: #### PATH TO [facility] #### [place] [address] USAXR DEXA AXIAL SKELETONon 26-57-2851[place], [place] [address] XRay Report Signed Patient: NEREIDA AGOSTO MR#: [id number] : 1940 Acct:[id number] Age/Sex: 84 / F ADM Date: 04/03/24 Loc: [facility] Attending Dr: Meera Jimenez Ordering Physician: Meera Jimenez Date of Service: 04/03/24 Procedure(s): XR DEXA axial skeleton Accession Number(s): [id number] cc: Meera Jimenez; Kole Kaur M.D. [place] [address] Patient Name: NEREIDA AGOSTO MRN: [id number] date: 1940 Sex: F Assigned Patient Location: [facility] Current Patient Location: [facility] Accession/Order Number: [id number] Exam Date: 04/03/2024 07:45 Report Date: 04/03/2024 09:09 At the request of: MEERA JIMENEZ Procedure: XR DEXA axial skeleton EXAMINATION: XR [...] prevention and treatment of osteoporosis. Osteoporos Int. 2021;33(10):6437-3816. doi: 10.1007/q65447-686-78216-h. Epub 2021Jan 01. Erratum in: Osteoporos Int. 2021Apr 02;: PMID: 92218293; PMCID: [id number]. Electronically authenticated by: DUDLEY RYDER Date: 04/03/2024 09:09 Dictated By: Dudley Ryder M.D. Signed By: 04/03/24911 DD/ 8 TD/TT: Information Resources Director:TBHRadiology, Radiologist, - 04/03/[address] [address] XRay Report Signed Patient: NEREIDA AGOSTO MR#: [id number] : 1940 Acct:[id number] Age/Sex: 84 / F ADM Date: 04/03/24 Loc: [facility] Attending Dr: Meera Jimenez Ordering Physician: Meera Jimenez Date of Service: 04/03/24 Procedure(s): XR DEXA axial skeleton Accession Number(s): [id number] cc: Meera Jimenez; Kole Kaur M.D. The [address] [address] Patient Name: NEREIDA AGOSTO MRN: [id number] date: 1940 Sex: F Assigned Patient Location: [facility] Current Patient Location: [facility] Accession/Order Number: [id number] Exam Date: 04/03/2024 07:45 Report Date: 04/03/2024 09:09 At the request of: MEERA JIMENEZ Procedure: XR DEXA axial skeleton EXAMINATION: XR [...] prevention and treatment of osteoporosis. Osteoporos Int. 2021;33(10):6594-9027. doi: 10.1007/p37997-606-40030-b. Epub 2021Jan 01. Erratum in: Osteoporos Int. 2021Apr 02;: PMID: 84643344; PMCID: [id number]. Electronically authenticated by: DUDLEY RYDER Date: 04/03/2024 09:09 Dictated By: Dudley Ryder M.D. Signed By: 04/03/24911 DD/ 8 TD/TT: Information Resources Director: [facility] HealthcareRadiology Study observation (narrative)[facility] HealthcareXR DEXA AXIAL SKELETONOrdered By: Radiologist Radiology on 28-37-9200FPEC [employer] Work Phone: ambulatory Visit Summaryon 98-33-7098Yacwtyaxab Visit SummaryAmbulatory Visit Summary NEREIDA AGOSTO :1940 Visit Date:03/15/2024 Ambulatory Visit Instructions Your Diagnosis Personal history of colonic polyps Your Care Team Attending Physician - ALVARO AHMADI, Rashi Lee Primary Care Physician - Kole Kaur MD This Is Your Medications List [...] you for choosing us for your care. [facility]Person [facility] Hospitalcookie [facility] Finan CenterGeneral Surgery Office/Clinic Noteon 40-62-9945Dxheahu Surgery Office/Clinic NoteGeneral Surgery Office/Clinic Note Chief [...] Years., 03/15/2024 Family Hist (more content not included)...[facility] Comment on above:Result Comment: Electronically Signed By: ALVARO AHMADI, Rashi Weaver\Date and Time Signed: 03/15/24 14:08 [facility] BLD IMMUNO SCREENon 01-19-2023 OCCULT BLOODPositiveAbnormalNEGATIVEThe [facility] HospitalComment on above: Performed By: #### OBSCRN #### [facility] [address] [place] [address] Dr. Dinah Dunn AUTO DIFFon 98-88-9160QGGR #0.0 103/ulNormal0.0-0.1The [facility] HospitalComment on above:Performed By: #### CBC #### [facility] [address] [place] [address] Dr. Dinah Millssophils/100 WBC (Bld)0.6 %Normal0.2-2.0[facility] Comment on above:Performed By: #### CBC #### [facility] [address] [place] [address] Dr. Nix ChangEJarod #0.1 103/ulNormal0.0-0.7The [facility] HospitalComment on above: Performed By: #### CBC #### [facility] [address] [address] [address] Dinah Yaposinophils/100 WBC (Bld)1.8 %Normal0.9-7.0The [facility] Comment on above:Performed By: #### CBC #### [facility] [address] [place] [address] Dr. Dinah Yaprythrocyte distribution width (RBC) [Ratio]12.7 %Tnzwqa70.0-15.0 The [facility] HospitalComment on above:Performed By: #### CBC #### [facility] [address] [place] [address] Dr. Dinah RodrigesHematocrit (Bld) [Volume fraction]39.7 %Pqmytq41.0-48.0The [facility] HospitalComment on above:Performed By: #### CBC #### [facility] [address] [place] [address] Dr. Dinah RodrigesHemoglobin (Bld) [Mass/Vol]12.6 g/mFUplqww43.0-16.0The [facility] Hospitalment on above:Performed By: #### CBC #### [facility] [address] [place] [address] Dr. Dinah Witt #0.01 10e3/ulNormal0.00-0.03The [facility] Hospitalment on above:Performed By: #### CBC #### [facility] [address] [place] [address] Dr. Dinah Witt %0.2 %Normal0.0-0.5The [facility] Hospitalment on above: Performed By: #### CBC #### [facility] [address] [place] [address] Dr. Dinah PhillipsH #1.5 103/ulNormal1.2-3.8The [facility] on above:Performed By: #### CBC #### [facility] [address] [place] [address] Dr. Dinah Whipplemphocytes/100 WBC (Bld)28.7 %Bdyhtv03.5-60.0The [facility] HospitalComment on above:Performed By: #### CBC #### [facility] [address] [address] [address] Dinah Page DIFF REQNONormalThe [facility] HospitalComment on above: Performed By: #### CBC #### [facility] [address] [address] [address] Dinha Mcneil (RBC) [Entitic mass]30.7 zeEmmsgn18.7-34.0The [facility] HospitalComment on above:Performed By: #### CBC #### [facility] [address] [place] [address] Dr. Dinah Mcneil (RBC) [Mass/Vol]31.7 g/vGOzgnbz83.9-35.2The [facility] HospitalComment on above:Performed By: #### CBC #### [facility] [address] [place] [address] Dr. Dinah Mcneil (RBC) [Entitic vol]96.8 nRPyjwsb76.0-99.0The [facility] HospitalComment on above:Performed By: #### CBC #### [facility] [address] [place] [address] Dr. Dinah Cortes #0.4 103/ulNormal0.3-0.8The [facility] HospitalComment on above:Performed By: #### CBC #### [facility] [address] [place] [address] Dr. Dinah Gandhiocytes/100 WBC (Bld)7.3 %Normal1.7-12.0The [facility] Comment on above:Performed By: #### CBC #### [facility] [address] [address] [address] Dinah Brown #3.1 103/ulNormal1.4-6.5The [facility] HospitalComment on above:Performed By: #### CBC #### [facility] [address] [place] [address] Dr. Dinah Darlingutrophils/100 WBC (Bld)61.4 %Scnena43.0-75.0The [facility] HospitalComment on above:Performed By: #### CBC #### [facility] [address] [address] [address] Dinah Carlton mean volume (Bld) [Entitic vol]9.7 fLNormal9.5-13.5The [facility] HospitalComment on above:Performed By: #### CBC #### [facility] [address] [place] [address] [address] Dinah RodrigesPLT163 103/ljJfdnmp085-484Hwo [facility] HospitalComcorewell health [facility] hospital on above: Performed By: #### CBC #### [facility] [address] [address] [address] Dinah RodrigesRBC4.10 106/ulCritically low4.20-5.40The [facility] on above:Performed By: #### CBC #### [facility] [address] [place] [address] Dr. Dinah RodrigesWBC5.1 103/ulNormal4.0-11.0The [facility] HospitalComcorewell health ludington hospital on above: Performed By: #### CBC #### [facility] [address] [address] [address] Dinah RodrigesFRCHAYO T3on 65-72-1380QBQI T32.11 pg/mlLCritically low2.18-3.98[facility] on above:Performed By: #### CMP, TSH, T4, LIPID, FT3 #### [facility] [address] [address] [address] Dinah RodrigesGLYCOHEMOGLOBIN A1Con 09-45-3629DTK RECOMMENDATIONSEE BELOWNormal The [facility] HospitalComcorewell health lud[facility] hospital on above:Result Comment: ADA RECOMMENDED LIMIT 4.0 - 6.0 ADA THERAPEUTIC TARGET < 7.0 ACTION SUGGESTED > 7.0Performed By: #### A1C ####[facility] [address] [place] [address]Dr. Dinah RodrigesGlucose [Mass/Vol]105 mg/dLNormalThe [facility] HospitalComcorewell health lud[facility] hospital on above:Performed By: #### A1C ####[facility] [address] [place] [address]Dr.Yilan RodrigesHbA1c (Bld) [Mass fraction]5.3 %Normal 4.5-6.2The [facility] HospitalComment on above:Performed By: #### A1C ####[facility] [address] [place] [address]Dr.Yilan RodrigesLIPID PROFILEon 07-31-1170BFFR-HDL RATIO NORMSEE [facility] Comment on above:Result Comment: 3.3 - 4.4 LOW RISK 4.4 - 7.1 AVERAGE RISK 7.1 - 11.0 MODERATE RISK >11.0 HIGH RISKPerformed By: #### CMP, TSH, T4, LIPID, FT3 #### [facility] [address] [address] [address] Dinah Galanesterol [Mass/Vol]168 mg/dLNormal<=200The [facility] Comment on above:Performed By: #### CMP, TSH, T4, LIPID, FT3 #### [facility] [address] [address] [address] Dinah Galanesterol in HDL [Mass/Vol]61 mg/dLCritically bpbp81-92Smt [facility] HospitalComment on above:Performed By: #### CMP, TSH, T4, LIPID, FT3 #### [facility] [address] [address] [address] Dinah Galanesterol in LDL [Mass/Vol]94.0 mg/dLNoOhio State Harding HospitalComment on above:Performed By: #### CMP, TSH, T4, LIPID, FT3 #### [facility] [address] [address] [address] Dinah Singh.total/Cholesterol in HDL [Mass ratio]2.8 {ratio} NormalTrumbull Regional Medical CenterComment on above:Performed By: #### CMP, TSH, T4, LIPID, FT3 #### [facility] [address] [address] [address] Dinah [place] NORMAL> or = 60 mg/dl - LOW CARDIOVASCULAR RISK <40 mg/dl - HIGH CARDIOVASCULAR RISKNoOhio State Harding HospitalComment on above:Performed By: #### CMP, TSH, T4, LIPID, FT3 #### [facility] [address] [place] [address] Dr. Dinah Núñez CALC NORMALSEE BELOWPremier Health Miami Valley Hospital NorthComment on above:Result Comment: <100 mg/dl OPTIMAL 100 - 129 mg/dl NEAR OR ABOVE OPTIMAL 130 - 159 mg/dl BORDERLINE HIGH 160 - 189 mg/dl HIGH >190 mg/dl VERY HIGH Performed By: #### CMP, TSH, T4, LIPID, FT3 #### [facility] [address] [place] [address] Dr. Dinah RodrigesTriglyceride [Mass/Vol]65 mg/dLNormal<=150The [facility] Comment on above:Performed By: #### CMP, TSH, T4, LIPID, FT3 #### [facility] [address] [place] [address] Dr. Dinah RodrigesVLDL CALC13.0 mg/dLNoOhio State Harding HospitalComment on above: Performed By: #### CMP, TSH, T4, LIPID, FT3 #### [facility] [address] [place] [address] Dr. Dinah RodrigesPROOrinaa 14(COMP METB)on 22-93-6725Oxetkhj [Mass/Vol]3.4 g/dLNormal 3.4-5.0[facility] Centerment on above:Performed By: #### CMP, TSH, T4, LIPID, FT3 #### [facility] [address] [place] [address] Dr. Dinah RodrigesAlbumin/Globulin [Mass ratio]1.0 {ratio}NormalThe [facility] Hospitalment on above:Performed By: #### CMP, TSH, T4, LIPID, FT3 #### [facility] [address] [place] [address] Dr. Dinah Romero [Catalytic activity/Vol]59 U/OSsnycx09-086EnvCrystal Clinic Orthopedic Centerment on above:Performed By: #### CMP, TSH, T4, LIPID, FT3 #### [facility] [address] [place] [address] Dr. Dinah Thacker [Catalytic activity/Vol]13 U/LCritically bto62-28Lso [facility] HospitalComment on above:Performed By: #### CMP, TSH, T4, LIPID, FT3 #### [facility] [address] [place] [address] Dr. Dinah Jacobson gap [Moles/Vol]10.7 mmol/LNormalTrumbull Regional Medical Center Comment on above:Performed By: #### CMP, TSH, T4, LIPID, FT3 #### [facility] [address] [place] [address] Dr. Dinah Marie [Catalytic activity/Vol]14 U/LCritically dag87-09Ufg [facility] HospitalComment on above:Performed By: #### CMP, TSH, T4, LIPID, FT3 #### [facility] [address] [place] [address] Dr. Dinah RodrigesBilirubin [Mass/Vol]0.3 mg/dLNormal0.2-1.0[facility] Comment on above:Performed By: #### CMP, TSH, T4, LIPID, FT3 #### [facility] [address] [place] [address] Dr. Dinah RodrigesCalcium [Mass/Vol]9.4 mg/dLNormal8.5-10.1[facility] Comment on above:Performed By: #### CMP, TSH, T4, LIPID, FT3 #### [facility] [address] [place] [address] Dr. Dinah RodrigesChloride [Moles/Vol]106 mmol/ZFrhzan24-600AgxTrumbull Regional Medical Center Comment on above:Performed By: #### CMP, TSH, T4, LIPID, FT3 #### [facility] [address] [place] [address] Dr. Dinah RodrigesCO2 [Moles/Vol]31.9 mmol/XPzkhfz50.0-32.0[facility] Comment on above:Performed By: #### CMP, TSH, T4, LIPID, FT3 #### [facility] [address] [place] [address] Dr. Dinah RodrigesCreatinine [Mass/Vol]0.95 mg/dLNormal0.55-1.02The [facility] HospitalComment on above:Performed By: #### CMP, TSH, T4, LIPID, FT3 #### [facility] [address] [address] [address] Dinah YapGFR-AF SPANISH>60Normal>=60The [facility] HospitalComment on above:Performed By: #### CMP, TSH, T4, LIPID, FT3 #### [facility] [address] [place] [address] Dr. Dinah YapGFR-NON AF GNJPYNKG85 mL/min/1.44m8Tsdebuqwhf low>=60The [facility] HospitalComment on above:Performed By: #### CMP, TSH, T4, LIPID, FT3 #### [facility] [address] [place] [address] Dr. Dinah RodrigesGlobulin (S) [Mass/Vol]3.4 g/dLNormalThe [facility] HospitalComment on above:Performed By: #### CMP, TSH, T4, LIPID, FT3 #### [facility] [address] [place] [address] Dr. Dinah RodrigesGlucose [Mass/Vol]88 mg/oBVldogy66-469HeeTrumbull Regional Medical Center Comment on above:Performed By: #### CMP, TSH, T4, LIPID, FT3 #### [facility] [address] [place] [address] Dr. Dinah RodrigesPotassium [Moles/Vol]4.6 mmol/LNormal3.5-5.1The [facility] Comment on above:Performed By: #### CMP, TSH, T4, LIPID, FT3 #### [facility] [address] [place] [address] Dr. Dinah RodrigesProtein [Mass/Vol]6.8 g/dLNormal6.4-8.2The [facility] Comment on above:Performed By: #### CMP, TSH, T4, LIPID, FT3 #### [facility] [address] [place] [address] Dr. Dinah Cokerum [Moles/Vol]144 mmol/BTcfzsz527-647Vsf [facility] Comment on above:Performed By: #### CMP, TSH, T4, LIPID, FT3 #### [facility] [address] [place] [address] Dr. Dinah Bui nitrogen [Mass/Vol]18.0 mg/dLNormal7.0-18.0The [facility] HospitalComment on above:Performed By: #### CMP, TSH, T4, LIPID, FT3 #### [facility] [address] [place] [address] Dr. Dinah Bui nitrogen/Creatinine [Mass ratio]18.9 mg/mgNormalThe [facility] HospitalComment on above:Performed By: #### CMP, TSH, T4, LIPID, FT3 #### [facility] [address] [place] [address] Dr. Dinah Hart4on 65-66-0359P1 [Mass/Vol]9.30 ug/dLNormal4.80-13.90The [facility] HospitalComment on above:Performed By: #### CMP, TSH, T4, LIPID, FT3 #### [facility] [address] [place] [address] Dr. Dinah Fan 82-25-7098GEY8.872 uIU/mLNormal0.358-3.740The [facility] Hospitalment on above:Performed By: #### CMP, TSH, T4, LIPID, FT3 #### [facility] [address] [place] [address] Dr. Dinah Dixon 34-33-1037Wdgmseztovl peptide B (Bld) [Mass/Vol]464.0 pg/mL Normal<=1,800.0The [facility] on above:Performed By: #### TSH, BNP, T7, LIPID, CMP ####[facility] [address] [address]Dr. Dinah Dunn AUTO DIFFon 83-88-2202DOWI #0.0 103/ulNormal 0.0-0.1The [facility] HospitalComment on above:Performed By: #### CBC #### [facility] [address] [place] [address] Dr. Dinah RodrigesBasophils/100 WBC (Bld)0.4 %Normal0.2-2.0The [facility] Comment on above:Performed By: #### CBC #### [facility] [address] [place] [address] Dr. Dinah Palacios #0.1 103/ulNormal0.0-0.7The [facility] HospitalComment on above: Performed By: #### CBC #### [facility] [address] [place] [address] Dr. Dinah Yaposinophils/100 WBC (Bld)1.9 %Normal0.9-7.0The [facility] Comment on above:Performed By: #### CBC #### [facility] [address] [place] [address] Dr. Dinah Yaprythrocyte distribution width (RBC) [Ratio]12.7 %Jqulzm56.0-15.0 [facility] CenterComment on above:Performed By: #### CBC #### [facility] [address] [place] [address] Dr. Dinah RodrigesHematocrit (Bld) [Volume fraction]35.0 %Critically low36.0-48.0 The [facility] HospitalComment on above:Performed By: #### CBC #### [facility] [address] [place] [address] Dr. Dinah RodrigesHemoglobin (Bld) [Mass/Vol]11.5 g/dLCritically low12.0-16.0[facility] CenterComment on above:Performed By: #### CBC #### [facility] [address] [place] [address] Dr. Dinah Witt #0.01 10e3/ulNormal0.00-0.03The [facility] HospitalComment on above:Performed By: #### CBC #### [facility] [address] [place] [address] Dr. Dinah Witt %0.2 %Normal0.0-0.5The [facility] HospitalComment on above: Performed By: #### CBC #### [facility] [address] [place] [address] Dr. Dinah Martin #1.4 103/ulNormal1.2-3.8The [facility] HospitalComment on above:Performed By: #### CBC #### [facility] [address] [place] [address] Dr. Dinah Phillipshocytes/100 WBC (Bld)26.9 %Cjvmkt20.5-60.0The [facility] HospitalComment on above:Performed By: #### CBC #### [facility] [address] [place] [address] Dr. Dinah Page DIFF REQNONormalThe [facility] HospitalComment on above: Performed By: #### CBC #### [facility] [facility] [address] [place] [address] Dr. Dinah Milton (RBC) [Entitic mass]33.0 qkUhqxax41.7-34.0The [facility] HospitalComment on above:Performed By: #### CBC #### [facility] [address] [place] [address] Dr. Dinah Godfrey (RBC) [Mass/Vol]32.9 g/uIVuwibi09.9-35.2The [facility] HospitalComment on above:Performed By: #### CBC #### [facility] [address] [place] [address] Dr. Dinah Elizabeth (RBC) [Entitic vol]100.3 fLCritically high81.0-99.0The [facility] HospitalComment on above:Performed By: #### CBC #### [facility] [address] [place] [address] Dr. Dinah Cortes #0.4 103/ulNormal0.3-0.8The [facility] HospitalComment on above:Performed By: #### CBC #### [facility] [address] [place] [address] Dr. Dinah Gandhiocytes/100 WBC (Bld)7.6 %Normal1.7-12.0The [facility] Comment on above:Performed By: #### CBC #### [facility] [address] [place] [address] Dr. Dinah Brown #3.3 103/ulNormal1.4-6.5The [facility] HospitalComment on above:Performed By: #### CBC #### [facility] [address] [place] [address] Dr. Dinah Darlingutrophils/100 WBC (Bld)63.0 %Nanhgm67.0-75.0The [facility] HospitalComment on above:Performed By: #### CBC #### [facility] [address] [place] [address] Dr. Dinah Sierralet mean volume (Bld) [Entitic vol]10.0 fLNormal9.5-13.5The [facility] HospitalComment on above:Performed By: #### CBC #### [facility] [address] [place] [address] Dr. Dinah MayT165 103/neCjaglo598-818Eeq [facility] HospitalComment on above: Performed By: #### CBC #### [facility] [address] [place] [address] Dr. Dinah RodrigesRBC3.49 106/ulCritically low4.20-5.40The [facility] HospitalComment on above:Performed By: #### CBC #### [facility] [address] [place] [address] Dr. Dinah RodrigesWBC5.3 103/ulNormal4.0-11.0The [facility] HospitalComment on above: Performed By: #### CBC #### [facility] [address] [place] [address] Dr. Dinah Olsen THYROXINE INDEX T7on 47-60-2686QJE5.29Xvjiyg5.30-4.50The [facility] HospitalComment on above:Performed By: #### TSH, BNP, T7, LIPID, CMP ####[facility] [address] [place] [address]Dr. Dinah RodrigesT3U34.0 %Snjnmi97.0-39.0The [facility] HospitalComment on above: Performed By: #### TSH, BNP, T7, LIPID, CMP ####[facility] [address] [place] [address]Dr. Dinah RodrigesT4 [Mass/Vol]9.90 ug/dLNormal 4.80-13.90The [facility] HospitalComment on above:Performed By: #### TSH, BNP, T7, LIPID, CMP ####[facility] [address] [place] [address]Dr. Dinah RodrigesGLYCOHEMOGLOBIN A1Con 71-75-9752SIQ RECOMMENDATIONSEE BELOW NormalTrumbull Regional Medical CenterComcorewell health ludington hospital on above:Result Comment: ADA RECOMMENDED LIMIT 4.0 - 6.0 ADA THERAPEUTIC TARGET < 7.0 ACTION SUGGESTED > 7.0Performed By: #### A1C ####[facility] Abci[address] [place], [place] [address]Dr.Lizsonia AntelmoGlucose [Mass/Vol]103 mg/dLNoOhio State Harding Hospital Comment on above:Performed By: #### A1C ####[facility] [address] [place], [place] [address]Dr.Dinah RodrigesHbA1c (Bld) [Mass fraction]5.2 %Normal4.5-6.2The [facility] HospitalComment on above:Performed By: #### A1C ####[facility] [address] [place], [place] [address]Dr. Dinah RodrigesIRONon 10-52-6682Tbda [Mass/Vol]79.0 ug/lIBqnmdz19.0-170.0The [facility] HospitalComment on above:Performed By: #### IRON ####[facility] [address] [place], [place] [address]Dr. Dinah RodrigesLIPID PROFILE on 14-55-6485ZOUT-HDL RATIO NORMSEE BELOWPremier Health Miami Valley Hospital NorthComment on above:Result Comment: 3.3 - 4.4 LOW RISK 4.4 - 7.1 AVERAGE RISK 7.1 - 11.0 MODERATE RISK >11.0 HIGH RISKPerformed By: #### TSH, BNP, T7, LIPID, CMP ####[facility] [address] [place] [address]Dr. Yilan ChangCholesterol [Mass/Vol]153 mg/dLNormal<=200[facility] Comment on above:Performed By: #### TSH, BNP, T7, LIPID, CMP ####[facility] [address] [place], [place] [address]Dr. Yilan Rodriges Cholesterol in HDL [Mass/Vol]54 mg/mNSfecbg30-09Ltj [facility] HospitalComment on above:Performed By: #### TSH, BNP, T7, LIPID, CMP ####[facility] [address] [place], [place] [address]Dr. Yilan ChangCholesterol in LDL [Mass/Vol]78.8 mg/dLNoOhio State Harding HospitalComment on above:Performed By: #### TSH, BNP, T7, LIPID, CMP ####[facility] Phcrj[address] [place], [place] [address]Dr. Yilan ChangCholesterol.total/Cholesterol in HDL [Mass ratio]2.8 {ratio}NormalTrumbull Regional Medical CenterComment on above:Performed By: #### TSH, BNP, T7, LIPID, CMP ####[facility] [address] [place], [place] [address]Dr. Yilan ChangHDL NORMAL> or = 60 mg/dl - LOW CARDIOVASCULAR RISK <40 mg/dl - HIGH CARDIOVASCULAR RISKPremier Health Miami Valley Hospital NorthComment on above:Performed By: #### TSH, BNP, T7, LIPID, CMP ####[facility] [address] [place], [place] [address]Dr. Yilan ChangLDL CALC NORMALSEE BELOWPremier Health Miami Valley Hospital NorthComcorewell health ludington hospital on above: Result Comment: <100 mg/dl OPTIMAL 100 - 129 mg/dl NEAR OR ABOVE OPTIMAL 130 - 159 mg/dl BORDERLINE HIGH 160 - 189 mg/dl HIGH >190 mg/dl VERY HIGHPerformed By: #### TSH, BNP, T7, LIPID, CMP ####[facility] [address] [place], [place] [address]Np. Dinah RodrigesTriglyceride [Mass/Vol]101 mg/dLNormal <=150The [facility] HospitalComment on above:Performed By: #### TSH, BNP, T7, LIPID, CMP ####[facility] [address] [place], [place] [address]Lv. Dinah ChangVLDL CALC20.2 mg/dLNoOhio State Harding HospitalComment on above:Performed By: #### TSH, BNP, T7, LIPID, CMP ####[facility] [address]edqkteoz[address] [place], [place] [address]Sd. Lizlan ChangMG MAMM SCREEN 3D TENZIN CADon 13-24-2560DX MAMM SCREEN 3D TENZIN CADPatient: NEREIDA AGOSTO Exam Date: 01/20/2022 : 1940 Gender:F Ordering : DR KOLE KAUR . Admission #: [id number] Family : Order #: [id number] CLICK HERE TO VIEW EXAM RADIOLOGY REPORT PROCEDURE: MAMMOGRAM SCREENING 3D BILATERAL CAD COMPARISON: MG MAMM SCREEN TENZIN W CAD, 10/18/2019. MG MAMM SCREEN ETNZIN W CAD, 10/21/2020. INDICATIONS: Screening mammography Calculator Name NCI Breast Cancer Risk Assessment Tool 5 Year Breast Cancer Risk Not Reported. Lifetime Breast Cancer Risk Not Reported. Personal Breast Cancer No Personal Ovarian Cancer No Treatments None Family Cancers None LOCATION: [facility] BREAST COMPOSITION: Scattered areas fibroglandular [...] by: Kelsi Monzon MD on 01/20/2022 at 11:33NoOhio State Harding HospitalPROF 14(COMP METB)on 99-81-5182Fifoffy [Mass/Vol]3.3 g/dLCritically low3.4-5.0The [facility] HospitalComment on above:Performed By: #### TSH, BNP, T7, LIPID, CMP ####[facility] [address] [place] [address]Dr. Yilan ChangAlbumin/Globulin [Mass ratio]1.0 {ratio}NormalThe [facility] Comment on above:Performed By: #### TSH, BNP, T7, LIPID, CMP ####[facility] [address] [place] [address]Dr. Yilan ChangALP [Catalytic activity/Vol]69 U/GBnzeeb57-480Qcu [facility] HospitalComment on above: Performed By: #### TSH, BNP, T7, LIPID, CMP ####[facility] [address] [place], [place] [address]Dr. Yilan ChangALT [Catalytic activity/Vol]6 U/LCritically ndx36-12Kcs [facility] HospitalComment on above:Performed By: #### TSH, BNP, T7, LIPID, CMP ####[facility] [address] [place], [place] [address]Dr. Yilan ChangAnion gap [Moles/Vol]8.7 mmol/LNormal The [facility] HospitalComment on above:Performed By: #### TSH, BNP, T7, LIPID, CMP ####[facility] [address] [place], [place] [address]Dr. Yilan ChangAST [Catalytic activity/Vol]12 U/LCritically sin85-13Dnh [facility] HospitalComment on above:Performed By: #### TSH, BNP, T7, LIPID, CMP ####[facility] [address]ch[address] [place], [place] [address]Dr. Yilan ChangBilirubin [Mass/Vol]0.3 mg/dLNormal0.2-1.0The [facility] Comment on above:Performed By: #### TSH, BNP, T7, LIPID, CMP ####[facility] X[address]sb[address]vfet[address] [place], [place] [address]Dr. Yilan Rodriges Calcium [Mass/Vol]9.3 mg/dLNormal8.5-10.1The [facility] HospitalComment on above: Performed By: #### TSH, BNP, T7, LIPID, CMP ####[facility] [address] [place] [address]Dr. Yilan ChangChloride [Moles/Vol]104 mmol/SVujfud18-237Pcc [facility] HospitalComment on above:Performed By: #### TSH, BNP, T7, LIPID, CMP ####[facility] [address] [place] [address]Dr. Yilan ChangCO2 [Moles/Vol]33.2 mmol/LCritically high 21.0-32.0The [facility] HospitalComcorewell health ludington hospital on above:Performed By: #### TSH, BNP, T7, LIPID, CMP ####[facility] [address]zetpd[address] [place], [place] [address]Dr. Yilan ChangCreatinine [Mass/Vol]1.11 mg/dLCritically high0.55-1.02[facility] CenterComcorewell health ludington hospital on above:Performed By: #### TSH, BNP, T7, LIPID, CMP ####[facility] [address]xax[address] [place], [place] [address]Dr. Yilan ChangEGFR-AF PDYYTLOG65 mL/min/1.19x7Kxjvkbpddy low>=60The [facility] on above:Performed By: #### TSH, BNP, T7, LIPID, CMP ####[facility] [address]qsvpdmx[address] [place], [place] [address]Dr. Yilan ChangEGFR-NON AF JUALJTYW70 mL/min/1.37w8Hgjusgnire low>=60The [facility] on above:Performed By: #### TSH, BNP, T7, LIPID, CMP ####[facility] Ts[address]oz[address] [place], [place] [address]Dr. Yilan ChangGlobulin (S) [Mass/Vol]3.4 g/dLNormalThe [facility] HospitalComcorewell health ludington hospital on above:Performed By: #### TSH, BNP, T7, LIPID, CMP ####[facility] [address]fldbcy[address] [place], [place] [address]Dr. Yilan ChangGlucose [Mass/Vol]84 mg/qLLqlyql13-277Dtv [facility] HospitalComment on above:Performed By: #### TSH, BNP, T7, LIPID, CMP ####[facility] [address]joye[address] [place] [address]Dr. Yilan ChangPotassium [Moles/Vol]4.9 mmol/LNormal 3.5-5.1The [facility] HospitalComment on above:Performed By: #### TSH, BNP, T7, LIPID, CMP ####[facility] [address] [place], [place] [address]Dr. Yilan ChangProtein [Mass/Vol]6.7 g/dLNormal6.4-8.2The [facility] Comment on above:Performed By: #### TSH, BNP, T7, LIPID, CMP ####[facility] [address]cn[address] [place], [place] [address]Dr. Yilan Rodriges Sodium [Moles/Vol]141 mmol/MPsfpoa123-115Gpm [facility] HospitalComment on above: Performed By: #### TSH, BNP, T7, LIPID, CMP ####[facility] Mtryqrtexv[address] [place], [place] [address]Dr. Yilan ChangUrea nitrogen [Mass/Vol]18.0 mg/dLNormal7.0-18.0The [facility] HospitalComment on above:Performed By: #### TSH, BNP, T7, LIPID, CMP ####[facility] [address] [place], [place] [address]Dr. Yilan ChangUrea nitrogen/Creatinine [Mass ratio] 16.2 mg/mgNoOhio State Harding HospitalComment on above:Performed By: #### TSH, BNP, T7, LIPID, CMP ####[facility] [address] [place], [place] [address]Dr. Yilan ChangTSHon 56-29-4856END8.061 uIU/mLNormal0.358-3.740 The [facility] HospitalComment on above:Performed By: #### TSH, BNP, T7, LIPID, CMP ####[facility] Rxchiotjyn[address] [place], [place] [address]Dr. Yilan ChangTSH RANGESEE BELOWNoOhio State Harding HospitalComment on above:Result Comment: <0.34 UIU/ml HYPERTHYROID 0.34-5.60 UIU/ml EUTHYROID >5.60 UIU/ml HYPOTHYROIDPerformed By: #### TSH, BNP, T7, LIPID, CMP ####[facility] [address] [place], [place] [address]ImSimran RodrigesXR DEXA BONE DENSITYon 80-39-2035MF DEXA BONE DENSITYEXAMINATION: XR DEXA BONE DENSITY, [...] Electronically authenticated by: DUDLEY RYDER Date: 2022-01-20 11:30[facility] NorthCardiovascular Lab Reporton [id number] Lab Report [facility] Patient Name: [facility] Nereida Rubin MR #: [id number] Department of Physician: Martha Seymour MHailey Division of Service Date: 12/23/2018 Cardiology Birthdate: 1940 Adult Cardiovascular Room #: [place] [address] Cardiovascular Laboratory Report PROCEDURE: Transesophageal echocardiogram and cardioversion. INDICATION: Atrial fibrillation. FELLOW: Neto Doty MD PROCEDURE IN DETAIL: An informed consent was obtained from the patient after explaining the indication, risks and benefits, and alternatives. The patient understood and agreed and signed the consent form. The patient was brought to the label sewer and transesophageal echocardiogram was performed under conscious [...] will follow up with me in the [facility] in 2-4 weeks Electronically Signed by: Goldie Vaughan M.D. 01/05/2019 08:36 A Goldie Vaughan M.D. I was present for the entire procedure. Date Dict: 12/23/2018/03:28 P/Neto Doty MD Date Trans: 12/23/2018 04:19 P/beth [id number]_[id number] cc: Kole Kaur M.D. [address] [facility] [address]WikaiaOwbOhio Valley Surgical Hospital Cardiovascular Lab Reporton [id number] Lab ReportUnCleveland Clinic [facility] MR #: [id number] Department of Physician: Martha Ken M.D. Division of Service Date: 12/15/2018 Cardiology Birthdate: 1940 Adult Cardiovascular Room #: 3CD [id number] [place] [address] Cardiovascular Laboratory Report CLINICAL PRESENTATION: The patient is a 78-year-old female with past medical history significant for hypertension. [facility] was [facility] with worsening shortness of breath. She was diagnosed with acute congestive heart failure and atrial fibrillation with a rapid ventricular rate. She was evaluated by my colleague, Dr. Lee, [place] [facility]. EKG showed ST elevations in the anterolateral leads and she was transferred urgently to the [facility] due to possible acute myocardial infarction. FINAL [...] ultrasound guidance and micropuncture access technique, a 6-Kazakh sheath placed in the right common femoral [...] P/Silviano Dia M.D. Date Trans: 12/16/2018 06:03 A/beth [id number] cc: Kole Kaur M.D. [address] [address] Peter Lee M.D. [facility]5 [facility] [address]VaiiyfXpn [facility], AvonBASIC METABOLIC PANELon 55-09-4999Lvnwqqg [Mass/Vol]9.3 mg/dLNormal8.6-10.3The [facility] Hospital, AvonComment on above:Order Comment: No: Do not add to previous drawPerformed By: #### 57067, 12581, 72689, 75239, 14436 #### [facility] [address] [place] [address], USAChloride [Moles/Vol]102 mmol/ZIjcrgu90-197Bee [facility], AvonComment on above:Order Comment: No: Do not add to previous drawPerformed By: #### 10431, 28647, 01531, 15764, 15605 #### [facility] [address] [place] [address], USACO2 [Moles/Vol]27 mmol/CQyrast53-84Udc [facility], AvonComment on above:Order Comment: No: Do not add to previous draw Performed By: #### 85856, 97180, 67320, 94498, 19577 #### [facility] [address] [place] [address], USACreatinine [Mass/Vol]0.91 mg/dLNormal0.60-1.20The [facility], AvonComment on above:Order Comment: No: Do not add to previous drawPerformed By: #### 05273, 72502, 81949, 90662, 17154 #### [facility] [address] [place] [address], USAGFR/1.73 sq M predicted among blacks MDRD (S/P/Bld) [Vol rate/Area]mL/min/{1.73_m2}Normal>60The [facility] Comment on above:Order Comment: No: Do not add to previous drawResult Comment: Calculation may not be valid for patients over 70 yearsPerformed By: #### 55645, 17612, 56789, 45430, 97708 #### [facility] [address] [place] [address], USAGFR/1.73 sq M predicted among non-blacks MDRD (S/P/Bld) [Vol rate/Area]mL/min/{1.73_m2}Normal>60The [facility] Comment on above:Order Comment: No: Do not add to previous drawResult Comment: Calculation may not be valid for patients over 70 yearsPerformed By: #### 60163, 69836, 87128, 58372, 67234 #### [facility] [address] [place] [address], USAGlucose [Mass/Vol]130 mg/fNAqdv25-098Rph [facility], AvonComment on above:Order Comment: No: Do not add to previous drawPerformed By: #### 12909, 52561, 31467, 87442, 34484 #### [facility] [address] [place] [address], USAPotassium [Moles/Vol]3.5 mmol/LNormal3.5-5.1The [facility], AvonComment on above:Order Comment: No: Do not add to previous drawPerformed By: #### 21524, 58273, 96245, 66612, 95503 #### [facility] [address] [place] [address], USASodium [Moles/Vol]140 mmol/DDbdlva382-229Jwb [facility], AvonComment on above:Order Comment: No: Do not add to previous drawPerformed By: #### 29392, 51819, 49250, 27223, 53569 #### [facility] [address] [place] [address], USAUrea nitrogen [Mass/Vol]19 mg/dLNormal7-25The [facility], AvonComment on above:Order Comment: No: Do not add to previous drawPerformed By: #### 28972, 73548, 63509, 50152, 34369 #### [facility] [address] [place] [address], USABNP (B-TYPE NATRIURETIC PEPTIDE)on 10-97-3301Qnfrionflks peptide B (Bld) [Mass/Vol]369 pg/mLHigh0-100The [facility], AvonComment on above:Order Comment: No: Do not add to previous drawResult Comment: Given the appropriate clinical setting a BNP result of >100 pg/mL indicates congestive heart failure.Performed By: #### 16423, 69284 #### [facility] [address] [place] [address], USACBC COMPLETE BLOOD COUNTon 92-90-7256Cmtxuwcjsse distribution width (RBC) [Ratio]12.9 %Sguzga07.5-15.0The [facility], AvonComment on above:Order Comment: No: Do not add to previous draw Performed By: #### 15605 #### [facility] [address] [place] [address], USAHematocrit (Bld) [Volume fraction]39.0 %Khoyhu44.0-45.0The [facility], AvonComment on above:Order Comment: No: Do not add to previous drawPerformed By: #### 34850 #### [facility] [address] [place] [address], USAHemoglobin (Bld) [Mass/Vol]12.6 g/cLXyfeeb71.0-15.0The [facility], AvonComment on above:Order Comment: No: Do not add to previous drawPerformed By: #### 27737 #### [facility] [address] [place] [address], USAMCH (RBC) [Entitic mass]31.6 qvLvvdjn57.0-33.0The [facility], AvonComment on above:Order Comment: No: Do not add to previous drawPerformed By: #### 14430 #### [facility] [address] [place] [address], GALLUP INDIAN MEDICAL CENTERMCHC (RBC) [Mass/Vol]32.3 g/zMImxjsw21.0-35.0The [facility], AvonComment on above:Order Comment: No: Do not add to previous drawPerformed By: #### 52493 #### [facility] [address] [place] [address], GALLUP INDIAN MEDICAL CENTERMCV (RBC) [Entitic vol]97.7 dTDjuebq97.0-98.0The [facility], AvonComment on above:Order Comment: No: Do not add to previous drawPerformed By: #### 18381 #### [facility] [address] [place] [address], USANucleated RBC/100 WBC (Bld) [Ratio]0 %Normal0-0The [facility], AvonComment on above:Order Comment: No: Do not add to previous drawPerformed By: #### 63428 #### [facility] [address] [place] [address], USAPLAT RMJ347 10*3/cGUmwnrc324-838Smk [facility], AvonComment on above:Order Comment: No: Do not add to previous draw Performed By: #### 14661 #### [facility] [address] [place] [address], USARBC (Bld) [#/Vol]3.99 10*6/uLNormal3.80-5.00The [facility], AvonComment on above:Order Comment: No: Do not add to previous drawPerformed By: #### 86237 #### [facility] [address] [place] [address], USAWBC (Bld) [#/Vol]8.04 10*3/uLNormal4.00-10.60The [facility], AvonComment on above:Order Comment: No: Do not add to previous drawPerformed By: #### 79172 #### [facility] [address] [place] [address], USAHEMOGLOBIN A1Con 99-25-2353XpJ3l (Bld) [Mass fraction]108 mg/hCRvstgb87-500Zsg [facility], AvonComment on above:Order Comment: No: Do not add to previous drawPerformed By: #### 89184, 39832 #### [facility] [address] [place] [address], EPTCkY6u (Bld) [Mass fraction]5.4 %Normal4.0-6.0The [facility], AvonComment on above:Order Comment: No: Do not add to previous drawPerformed By: #### 01483, 55168 #### [facility] [address] [place] [address], USALIPID PROFILEon 11-42-2260Nildaqkgfey [Mass/Vol]138 mg/dL Xhkrkv896-047Lsp [facility], AvonComment on above:Order Comment: No: Do not add to previous drawResult Comment: CHOLESTEROL REFERENCE RANGE: 20 YEARS AND OLDER CARDIOVASCULAR RISK Less than 200 mg/dl Low Risk 200 to 239 mg/dl Borderline Risk 240 mg/dl and greater High RiskPerformed By: #### 68293, 17298, 59678, 83886, 94426 #### [facility] [address] [place] [address], USACholesterol in HDL [Mass/Vol]36 mg/vLBlktsj72-94Icg [facility], AvonComment on above:Order Comment: No: Do not add to previous drawResult Comment: Slight variation in normal range could be due to gender and/or age. HDL CHOLESTEROL REFERENCE RANGE: 20 years and older Cardiovascular Risk > or =60 mg/dL Desirable 40 TO 59 mg/dL Low Risk <40 mg/dL High RiskPerformed By: #### 37517, 08884, 47920, 65989, 30250 #### [facility] [address] [place] [address], USACholesterol in LDL [Mass/Vol]81 mg/dLNormal0-130The [facility], AvonComment on above:Order Comment: No: Do not add to previous drawResult Comment: LDL IS A CALCULATION LDL IS ONLY VALID IF THE TRIG IS LESS THAN 400.Performed By: #### 05704, 01101, 46948, 54160, 77129 #### [facility] [address] [place] [address], USACholesterol.total/Cholesterol in HDL [Mass ratio]3.8 {ratio}Normal.0-4.5The Select [facility], AvonComment on above:Order Comment: No: Do not add to previous drawPerformed By: #### 23106, 27992, 83025, 91120, 84567 #### [facility] [address] [place] [address], USANON-HDL KZBGAAOZKTW415 mg/dLNormalThe [facility], AvonComment on above:Order Comment: No: Do not add to previous draw Performed By: #### 67194, 87302, 01563, 97636, 63020 #### [facility] [address] [place] [address], USATriglyceride [Mass/Vol]106 mg/sJAdklrm30-302Amj [facility], [place]onComment on above:Order Comment: No: Do not add to previous drawResult Comment: TRIGLYCERIDE REFERENCE RANGE: 20 YEARS AND OLDER CARDIOVASCULAR RISK LESS THAN 150 mg/dl LOW RISK 150 TO 199 mg/dl BORDERLINE RISK 200 mg/dl AND GREATER HIGH RISKPerformed By: #### 37979, 15608, 58196, 69386, 99881 #### [facility] [address] [place] [address], USAVLDL CHOL21 mg/dLNormal0-40The [facility], AvonComment on above:Order Comment: No: Do not add to previous drawPerformed By: #### 75971, 24700, 92354, 65989, 50690 #### [facility] [address] [place] [address], USAMAGNESIUM BLOODon 97-77-4291Vvfvphckm [Mass/Vol]1.9 mg/dL Normal1.9-2.7The [facility], AvonComment on above:Order Comment: No: Do not add to previous drawPerformed By: #### 61956, 17504, 36166, 10179, 21170 #### [facility] [address] [place] [address], USAPHOSPHORUS BLOODon 81-71-7724Zqlequgaw [Mass/Vol]4.5 mg/dL Normal2.5-5.0The [facility], AvonComment on above:Order Comment: combined requestPerformed By: #### 20443, 66328, 10181, 68848, 05374 #### [facility] [address] [place] [address], USAPORTABLE CHEST 1 VIEWon 13-55-3162QURMFOPY CHEST 1 VIEW [facility] Department of Radiology [address] [place] [address] [phone] Patient Name: NEREIDA AGOSTO : 1940 Sex: F Age: Race: White Pt. Location: [id number] Patient Status: I Ordered Date: 12/15/2018 2:10:00 [...] failure Electronically signed by:Bharti Perales. Transcribed by: [email or web address], User Resident: Electronically Signed by: BHARTI PERALES @ 12/15/2018 03:50 PMNormalThe [facility], AvonComment on above:Order Comment: R/O QQJMFI3ab 54-04-5227UWI 3RD GENERATION0.86 uIU/mLNormal0.34-5.60The [facility], AvonComment on above:Performed By: #### 61606, 75169, 28241, 83428, 51407 #### [facility] [address] Vital Signs Date TimeVital SignValuePerforming ApsihhbisSgjcoxfq02-72-0427 13:04-0400Body mass index (BMI) [Ratio]31.96 kg/m2Meera JONES Work Phone: [facility] HospitalScjwayejhj98-78-8839 13:04-0400Body zmsdqu20.78 kgMeera JONES Work Phone: [facility] HospitalAeyiusbbkw66-98-7288 13:04-0400Diastolic blood ovcoqsvj59 mm[Hg]Meera JONES Work Phone: [facility] HospitalNmqoxlufyc96-51-3901 13:04-0400Systolic blood mm[Hg]Meera JONES Work Phone: [facility] HospitalRtwxxukhjm95-40-6710 08:58-0500Blood Pressure LocationMohamad Javiduchli 940-6714Avgatf-Rjgme[address] [place], [place] 7557001-23-2025 08:58-0500Diastolic blood aeliludd59 mm[Hg]Mohamad Javiduchli 621-5985Dioyul-Nyzba[address] [place], [place] 7557001-23-2025 08:58-0500Heart rate67 /minMohamad Mouchli [address] [place], [place] 7744801-23-2025 08:58-0500Systolic blood awyvplkv675 mm[Hg]Helibbyd Roseli [address] [place], [place] 7744801-08-2025 12:40-0500Diastolic blood vflmqudg72 mm[Hg]Harmony Roseli [address] [place], [place] 8571201-08-2025 12:40-0500Heart rate80 /minMohamad Javiduchli [address]01-08-2025 12:40-0500 Respiratory rate13 /minMohamad Javiduchli [address]01-08-2025 12:40-1093UtZ0% (BldA) [Mass fraction]95 %Sarbjitsugey Rosetara [address] [place], [place] [address]Comment on above:Result Comment: patient had cold fingers, waveform was suboptimal, no SOB or other signs of respiratory kpyffpucvm72-96-7171 12:40-0500Systolic blood ttqfnxvo192 mm[Hg]Sarbjitd Rut [address] [place], [place] 3847601-08-2025 12:30-0500 Diastolic blood pmhpmuno08 mm[Hg]Heamad Mouchli [address]01-08-2025 12:30-0500Heart rate80 /minMohamad Javiduchli [address] [place], [place] 8571201-08-2025 12:30-0500 Respiratory rate22 /minMohamad Mouchli [address] [place], [place] 8571201-08-2025 12:30-4117PyJ5% (BldA) [Mass fraction]96 %Mohamad Mouchli [address] [place], [place] 8571201-08-2025 12:30-0500 Systolic blood mm[Hg]Mohamad Mouchli [address] [place], [place] 8571201-08-2025 12:15-0500 Diastolic blood vxyfdhhg22 mm[Hg]Mohamad Mouchli [address] [place], [place] 8571201-08-2025 12:15-0500Heart rate81 /minMohamad Mouchli [address] [place], [place] 8571201-08-2025 12:15-0500 Respiratory rate22 /minMohamad Mouchli [address] [place], [place] 8571201-08-2025 12:15-4652RjR3% (BldA) [Mass fraction]97 %Mohamad Mouchli [address] [place], [place] 8571201-08-2025 12:15-0500 Systolic blood maaknlwl139 mm[Hg]Mohamad Mouchli [address] [place], [place] 8571201-08-2025 11:43-0500Body eoeleujystt11.16 [degF]Mohamad Mouchli [address] [place], [place] 8571201-08-2025 11:40-0500 Respiratory rate18 /minMohamad Mouchli [address] [place], [place] 8571201-08-2025 11:35-0500 Respiratory rate18 /minMohamad Mouchli [address] [place], [place] 8571201-08-2025 11:30-0500 Respiratory rate18 /minMohamad Mouchli [facility]01-08-2025 09:33-0500Blood Pressure LocationMohamad Mouchli [facility]01-08-2025 09:33-0500Body ztnciwubhsd02.8 [degF]Mohamad Mouchli [facility]10-03-2024 09:46-0400Blood Pressure LocationMohamad Mouchli 527-2824Ihqmbt-VoduzWooster [facility] Hospital10-03-2024 09:46-0400Diastolic blood mm[Hg]Mohamad Mouchli 690-9621Hqwurt-HmkbrWooster Community Hospital10-03-2024 09:46-0400Heart rate64 /minMohamad Mouchli 816-7132Prkeds-KswrtWooster Community Hospital10-03-2024 09:46-0400Respiratory rate16 /minMohamad Mouchli 855-8692Yqfrml-UjoyrWooster Community Hospital10-03-2024 09:46-0400Systolic blood mm[Hg]Sarbjitd Mouchli 838-0876Lsoveq-NllklWooster Community Hospital07-10-2024 13:44-0400Blood Pressure LocationMichael NILL 171-0738Axrfcz-FjoaaC[facility]07-10-2024 13:44-0400Diastolic blood wuliwyhh40 mm[Hg]Rashi NILL 043-9788Mwfdag-NagxoCincinnati Va Medical Center07-10-2024 13:44-0400Heart rate76 /minMichael NILL 047-0166Gzfyvs-SjwjbCincinnati Va Medical Center07-10-2024 13:44-0400Respiratory rate16 /minMichael NILL 160-0398Fwtqpj-Wlsvb General Surgery Mgycoebo43-02-6250 13:44-0400Systolic blood mm[Hg]Rashi CAMARAL 390-6420Phfbfe-Uezzz General Surgery Niwlnymt00-42-7374 14:45-0400Blood Pressure LocationMichael NILL General Surgery Oyptdcci04-68-0486 14:45-0400Diastolic blood bujmmfxr52 mm[Hg]Rashi NILL General Surgery Cacwafis68-88-6820 14:45-0400Heart rate 74 /minMichael NILL General Surgery Icnmjuyl20-73-0031 14:45-0400 Respiratory rate16 /minMichael NILL General Surgery Buhvhtal60-47-3858 14:45-0400Systolic blood lyulmrmm589 mm[Hg]Rashi CAMARAL General Surgery [place] Encounters Encounter DateEncounter TypeCare ProviderFacilityStart: 40-59-1728ozvwakjjyh Harmony BettencourtFacility:[facility]tart: 07-03-2025 End: 57-78-1728fdbyxkkfogMPEI [facility] Hospitalt[facility]: 05-02-2025 End: 12-26-4066Ktkqkv flowsPieter JONES Work Phone: [facility] [place] OBGYNStart: 05-02-2025 End: 62-00-7730Uodwoa flowsPieter JONES Work Phone: [facility] [place] OBGYNStart: 05-02-2025 End: 39-14-9147Zjmcikb encounter Landon JONES Work Phone: [facility] HealthcareStart: 05-02-2025 End: 34-73-7884Ukqqcqbd preventive med est patient 65yrs& olderMeera JONES Work Phone: [facility] [place] OBGYNComment on above:Tinea (Primary Dx); Well woman exam with routine gynecological exam; Encounter for screening mammogram for malignant neoplasm of breast; Vaginal dryness, menopausalStart: 05-02-2025 End: 24-51-1978fivvgedwthYQV RAMEYNot AvailableStart: 02-15-2025 End: 44-78-7783zyeytwazntPVQEREF [facility] Hospitaltart: 11-15-2024 End: 13-69-3538Revjzbxjq Result EncounterMeera JONES Work Phone: n[facility] External Department UnsolicitedStart: 11-15-2024 End: 53-95-7182Pcpvzpbnr Result EncounterMeera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
--- NOTE | 2025-07-11 09:36 | PC.NURSE ---
Patient received Lexiscan. Patient denied symptoms. Left Stress lab without symptoms. Tolerated without problems.
[2025-07-11] MEDS: REGADENOSON 0.4 MG/5 ML SYRINGE IV (09:37)
--- NOTE | 2025-07-13 13:16 | PM.STRESS ---
Stress Test Stress Test Allergies Allergy/AdvReac Type Severity Reaction Status Date / Time Sulfa (Sulfonamide Allergy Rash Verified 07/23/23 07:05 Antibiotics) Requesting physician: Zeb Chicas Procedure: Lexiscan nuclear stress test General Information: Reason for Stress Test: [Shortness of breath] Cardiac History and Risk Factors: [Hypertension, history of MT] Resting 12 - Lead Electrocardiogram: Resting twelve-lead EKG showed atrial fibrillation, ventricular rate 82 bpm, nonspecific T changes. Resting blood pressure 131/70 mmHg. Patient was injected with Lexiscan 0.4 mg IV and she was monitored for few minutes. Peak heart rate 96 bpm which represents 70% of age-predicted maximum heart rate and peak blood pressure 137/62. Patient had shortness of breath with Lexiscan injection which resolved on its own gradually. EKG did not show any significant ST changes or any additional arrhythmias Stress Test: Protocol: [Lexiscan] Exercise Capacity: [Not applicable] Blood Pressure Response: [Normal] Rhythm: [Baseline A-fib which remains the same] ST - Response: [No ST changes] Patient Response: [No chest pain but patient had shortness of breath with Lexiscan injection] Interpretation: Negative Lexiscan EKG stress test for ischemia Nuclear myocardial perfusion stress images result is reported separately Miguelina Wade MD, FACC
== END 2025-07-11 08:04 | disposition home or self-care (01) ==
LOC: NM 08:03
PROVIDERS: PCP Family Medicine; Visit Provider Internal Medicine Cardiovascular Disease
DX: I51.7 Cardiomegaly (principal); I50.41 Acute combined systolic (congestive) and diastolic (congestive) heart failure
CPT/HCPCS: 78452; 93017; A9500; J2785